=== PATIENT | female | born 1955 | race Caucasian/White ===

== ENCOUNTER 2023-01-04 09:36 | Emergency (ER) | payer OTHER, SELFPAY ==
[2023-01-04] VITALS (8 sets, daily range): BP systolic 115–141; BP diastolic 56–81; PULSE 79–88; RESP 14–16; TEMP 36.9; O2SAT 94–98
--- NOTE | 2023-01-04 10:11 | PC.NURSE ---
Verbal order received from Dr. Lugo for irrigation of indwelling catheter. 120cc of sterile water used to irrigate, 325 mL urine return, catheter patently drainage.
[2023-01-04 10:37] LABS: Basophils Absolute Auto 0.1 K/mm3 (0.0-0.1); Basophils Percent Auto 0.7 % (0.2-1.2); Eosinophils Absolute Auto 0.3 K/mm3 (0-0.3); Eosinophils Percent Auto 1.7 % (0-4.4); Hematocrit 35.1 % (37.0-47.0); Immature Granulocyte Absolute 0.05 K/mm3 (0.00-0.031); Immature Granulocyte Percent A 0.3 % (0-0.5); Lymphocytes Percent Auto 16.5 % (18.3-44.2); Mean Corpuscular HGB Conc 31.3 g/dl (32-36); Mean Corpuscular Hemoglobin 29.8 pg (26-34); Mean Corpuscular Volume 95.1 fl (80-100); Mean Platelet Volume 8.7 fl (7.4-10.4); Monocytes Absolute Auto 1.2 K/mm3 (0.1-0.6); Monocytes Percent Auto 7.5 % (2.6-8.5); Neutrophils Absolute Auto 11.6 K/mm3 (1.3-6.7); Neutrophils Percent Auto 73.3 % (45.5-73.1); Platelet Count Result 665 k/mm3 (150-375); Red Blood Count 3.69 M/mm3 (4.2-5.4); Red Cell Distribution Width 14.4 % (11.5-14.5); White Blood Count 15.8 K/mm3 (4.5-10.0)
[2023-01-04 10:57] LABS: Anion Gap 3 mmol/L (8-16); Blood Urea Nitrogen 8 mg/dL (7-17); Calcium 9.3 mg/dL (8.4-10.2); Carbon Dioxide 27 mmol/L (22-30); Chloride 104 mmol/L (98-107); Estimated Glomerular Filt Rate > 60; Glucose 89 mg/dL (65-110); Potassium 4.3 mmol/L (3.4-5.0); Sodium 134 mmol/L (137-145)
[2023-01-04 11:35] LABS: Appearance Urine Cloudy (Clear); Bacteria Urine 2+ /hpf; Bilirubin Urine Negative (Negative); Blood Urine 2+ (Negative); Budding Yeast Urine Present /hpf; Color Urine Yellow (Yellow); Glucose Urine UA 2+ mg/dL (Negative); Ketones Urine Negative (Negative); Leukocyte Esterase Ur 3+ LEU/UL (Negative); Nitrate Urine Negative (Negative); Non Pathogenic Casts 0-2; Protein Urine Negative (Negative); Specific Grav Ur 1.007 (1.001-1.035); Squamous Epithelial Cell Urine None seen /hpf (Few); Urobilinogen Urine 0.2 mg/dL (<2.0); WBC Urine >100 /hpf; pH Urine 7.5 (5.0-9.0)
[2023-01-04 11:36] LABS: Add Urine Microscopic? YES
--- NOTE | 2023-01-04 12:56 | ED.GENADULT ---
HPI - General Adult General Chief complaint: Urogenital-Female Stated complaint: Catheter blocked Time Seen by Provider: 01/04/23 09:43 History of Present Illness HPI narrative: Patient is a 67-year-old female who presents to the ER with a Lazo that is not draining. She recently had a transurethral resection of the bladder for tumors last week at [facility]. During that procedure there was perforation and she drained urine into her peritoneal cavity. She then had to go back and have a Lazo catheter placed. She has had 2 more visits to ERs for clogged Lazo catheters. She was on Augmentin but switched to Keflex 2 days ago. No fevers or chills or sweats. No abdominal pain. When she called her physician's office she was told to come to the ER. Related Data Allergies Allergy/AdvReac Type Severity Reaction Status Date / Time No Known Allergies Allergy Verified 01/04/23 10:07 Review of Systems Review of Systems: All systems reviewed & are unremarkable except as noted in HPI and below Constitutional: Constitutional: Denies chills and Denies fever(s) Cardiovascular: Cardiovascular: Reports no additional cardiovascular complaints Respiratory: Respiratory: Reports no additional respiratory complaints Gastrointestinal: Gastrointestinal: Denies abdominal pain, Denies nausea and Denies vomiting Genitourinary: Genitourinary: Denies hematuria and Denies pelvic pain Comments: Poor Lazo drainage PMFSH Past Medical History Medical History (Updated 01/04/23 @ 18:05 by Theodore Lugo MD) Bladder cancer Surgical History Surgical History (Updated 01/04/23 @ 18:05 by Theodore Lugo MD) H/O transurethral resection of bladder tumor (TURBT) Exam Narrative: GENERAL: Well-appearing, well-nourished, and in no acute distress. HEAD: Normocephalic, atraumatic. ENT: Mucous membranes moist. CHEST: Clear to auscultation. No respiratory distress. HEART: Regular rate and rhythm. Normal peripheral pulses. ABDOMEN: Soft, nontender, nondistended. EXTREMITIES: Normal range of motion. No edema. SKIN: Warm, dry, no rash. NEURO: Alert and oriented x3. PSYCH: Normal mood and affect. Course Course Emergency Course: 1308: Discussed the case with Dr. Rodríguez with urology at [facility]. He would like the patient to discontinue her cephalexin and resume her Augmentin. Additionally he would like the patient be on Diflucan 150 mg daily for the next 3 days given the yeast in her urine. He feels a lot of the sediment rectal represents sludge from her bladder perforation and inflammation that went along with it. Additionally he would like us to teach the patient and her daughter how to manually irrigate the bladder catheter. Patient daughter informed of the treatment plan and verbalized understanding felt comfortable with discharge home. Vital Signs Vital signs: Vital Signs Temperature 98.4 F 01/04/23 09:45 Pulse Rate 86 01/04/23 09:45 Respiratory Rate 16 01/04/23 09:45 Blood Pressure 115/56 L 01/04/23 09:45 Pulse Oximetry 98 01/04/23 09:45 Temperature 98.4 F 01/04/23 09:45 Pulse Rate 88 01/04/23 13:00 Respiratory Rate 16 01/04/23 13:00 Blood Pressure 139/70 01/04/23 13:00 Pulse Oximetry 96 01/04/23 13:00 Medical Decision Making Vital Signs Vital Signs: Vital Signs Temperature 98.4 F 01/04/23 09:45 Pulse Rate 86 01/04/23 09:45 Respiratory Rate 16 01/04/23 09:45 Blood Pressure 115/56 L 01/04/23 09:45 Pulse Oximetry 98 01/04/23 09:45 Temperature 98.4 F 01/04/23 09:45 Pulse Rate 88 01/04/23 13:00 Respiratory Rate 16 01/04/23 13:00 Blood Pressure 139/70 01/04/23 13:00 Pulse Oximetry 96 01/04/23 13:00 Lab Data 01/04/23 10:33 01/04/23 10:33 Labs: Lab Results 01/04/23 01/04/23 Range/Units 10:33 10:57 WBC 15.8 H (4.5-10.0) K/mm3 RBC 3.69 L (4.2-5.4) M/mm3 Hgb 11
== END 2023-01-04 13:36 | disposition home or self-care (01) ==
PROVIDERS: Emergency Provider Emergency Medicine; PCP Nurse Practitioner Family
DX: T83.098A Other mechanical complication of other urinary catheter, initial encounter (principal); N39.0 Urinary tract infection, site not specified; C67.9 Malignant neoplasm of bladder, unspecified; Z90.6 Acquired absence of other parts of urinary tract; Y84.6 Urinary catheterization as the cause of abnormal reaction of the patient, or of later complication, without mention of misadventure at the time of the procedure
CPT/HCPCS: 36415; 51700; 51702; 80048; 81001; 85025; 87086; 99283

== ENCOUNTER 2023-01-04 19:41 | Emergency (ER) | payer OTHER, SELFPAY ==
[2023-01-04 19:43] VITALS: BP 117/62; PULSE 92; RESP 18; TEMP 36.6; O2SAT 96
--- NOTE | 2023-01-04 20:11 | ED.GENADULT ---
HPI - General Adult General Chief complaint: Urogenital-Female Stated complaint: clogged romero Time Seen by Provider: 01/04/23 19:44 History of Present Illness HPI narrative: 67-year-old female return to the ED for evaluation for a Romero catheter issue. Patient is a known bladder perforation has been having increased urinary sediment. Patient does have follow-up with [facility] urology. Patient was seen in the emergency department earlier today and was recently switched from Augmentin to Keflex. Earlier today patient was educated on how to irrigate the Romero catheter but at home she was unable to successfully irrigate the Romero. Romero catheter was once again exchanged and urinary bladder is now draining without issue. Related Data Allergies Allergy/AdvReac Type Severity Reaction Status Date / Time No Known Allergies Allergy Verified 01/04/23 10:07 Review of Systems Review of Systems: All systems reviewed & are unremarkable except as noted in HPI and below PMFSH Past Medical History Medical History (Updated 01/04/23 @ 20:13 by Brian Franklin MD) Bladder cancer Surgical History Surgical History (Updated 01/04/23 @ 18:05 by Theodore Lugo MD) H/O transurethral resection of bladder tumor (TURBT) Exam Narrative: APPEARANCE: Well appearing, no pain, no distress, well-nourished. HEAD: normocephalic, atraumatic. EYES: PERRLA/EOMI, conjunctivae clear. RESPIRATORY: Airway patent, respirations nonlabored. Clear to auscultation bilaterally, no rales, rhonchi, wheezing. CARDIOVASCULAR: Regular rate and rhythm without murmurs rubs or gallops. ABDOMINAL: Soft, nontender, nondistended, normal bowel sounds MUSCULOSKELETAL: Moves all extremities. Strength/ROM intact, No edema, No calf tenderness. NEURO: Alert. Cranial nerves II through XII intact. Grossly intact SKIN: Warm, dry. Normal Color Course Course Emergency Course: Romero catheter was exchanged and is successfully draining her urinary bladder. Patient was once again encouraged of close follow-up with urology. Vital Signs Vital signs: Vital Signs Temperature 97.8 F 01/04/23 19:43 Pulse Rate 92 01/04/23 19:43 Respiratory Rate 18 01/04/23 19:43 Blood Pressure 117/62 01/04/23 19:43 Pulse Oximetry 96 01/04/23 19:43 Oxygen Delivery Room Air 01/04/23 19:43 Temperature 97.8 F 01/04/23 19:43 Pulse Rate 92 01/04/23 19:43 Respiratory Rate 18 01/04/23 19:43 Blood Pressure 117/62 01/04/23 19:43 Pulse Oximetry 96 01/04/23 19:43 Oxygen Delivery Room Air 01/04/23 19:43 Medical Decision Making Vital Signs Vital Signs: Vital Signs Temperature 97.8 F 01/04/23 19:43 Pulse Rate 92 01/04/23 19:43 Respiratory Rate 18 01/04/23 19:43 Blood Pressure 117/62 01/04/23 19:43 Pulse Oximetry 96 01/04/23 19:43 Oxygen Delivery Room Air 01/04/23 19:43 Temperature 97.8 F 01/04/23 19:43 Pulse Rate 92 01/04/23 19:43 Respiratory Rate 18 01/04/23 19:43 Blood Pressure 117/62 01/04/23 19:43 Pulse Oximetry 96 01/04/23 19:43 Oxygen Delivery Room Air 01/04/23 19:43 Lab Data Labs: Urine Characteristics Sediment Discharge Plan Discharge Clinical Impression: Complication of Romero catheter Patient Disposition: Home, Self-Care Condition: Stable Instructions: Antibiotic Form, Romero Catheter Placement and Care (ED) Additional Instructions: Continue to have close follow-up with urology. If you have any worsening symptoms please call or return to the emergency department. Irrigate Romero catheter as instructed Prescriptions: No Action fluconazole [Diflucan] 150 mg tablet 150 mg PO DAILY Qty: 3 0RF Follow-up/Referrals: Tenzin,Vanna Ansari APRN [Primary Care Provider] -
== END 2023-01-04 20:40 | disposition home or self-care (01) ==
LOC: ANHED 20:19
PROVIDERS: Emergency Provider Emergency Medicine; PCP Nurse Practitioner Family
DX: T83.098A Other mechanical complication of other urinary catheter, initial encounter (principal); C67.9 Malignant neoplasm of bladder, unspecified; Z90.6 Acquired absence of other parts of urinary tract; Y84.6 Urinary catheterization as the cause of abnormal reaction of the patient, or of later complication, without mention of misadventure at the time of the procedure
CPT/HCPCS: 51702; 99283

== ENCOUNTER 2023-02-04 18:04 | Emergency (ER) | payer OTHER, SELFPAY ==
[2023-02-04] VITALS (36 sets, daily range): BP systolic 91–106; BP diastolic 44–52; PULSE 100–115; RESP 17–30; TEMP 37.1; O2SAT 88–100
--- NOTE | ~2023-02-04 | CT_ITS ---
EXAMINATION: CT abdomen pelvis w con DATE: 02/04/2023 19:28 INDICATION: Cystectomy. Left lower quadrant pain. TECHNIQUE: Computed tomography (CT) of the abdomen and pelvis was performed with 100 mL Omnipaque-350 intravenous contrast. Automated exposure control and iterative reconstruction technique were employe d. The dose-length product was 249.13 mGy-cm. COMPARISON: CT dated 11/03/2016 FINDINGS: Tiny right pleural effusion. Mild atelectasis at the dependent lung bases. Heart size is normal. Athe rosclerotic coronary artery calcific lesion. No pericardial effusion. Small sliding-type hiatal herni a. Liver, gallbladder, pancreas and bilateral adrenal glands are normal. There is a geographic relati vely low attenuation region of the spleen with lobular margins which chest sequela of prior infarct. 2.6 cm gas-filled duodenal diverticulum positioned posterior to the head of the pancreas. Postoperati ve changes prior cystectomy with surgical drain extending into the deep left hemipelvis. There is a s mall to moderate amount of intraperitoneal gas and fluid in the explanation bilateral lower quadrants of the abdomen and in the pelvis. The fluid does not appear discretely loculated but does demonstrat e peripheral thin enhancing rim. Moderate bilateral hydronephrosis with bilateral internal ureteral s tents with proximal loops in the bilateral renal pelvises and extending distally into a right lower q uadrant ileal conduit. The uterus is not identified and has likely been surgically resected. There a re gas and fluid-filled loops of small bowel without june dilation most consistent with a postoperat hoang ileus. There are few scattered colonic diverticula without adjacent inflammatory stranding to sug gest diverticulitis. No pathologically enlarged abdominal or pelvic lymphadenopathy. Mild lumbar levo curvature with mild spondylosis. Dependent body wall edema at the abdomen and pelvis. IMPRESSION: 1. Postoperative change of likely recent cystectomy with small to moderate amount of gas and fluid sc attered throughout the abdomen and pelvis. Although not frankly loculated into discrete abscesses, th ere is a peripheral rim of enhancement which elevates concern for infection. 2. Moderate hydronephrosis with bilateral intraureteral stents extending into a right lower quadrant ileal conduit. 3. Tiny right pleural effusion. 4. Geographic region of decreased attenuation in the spleen suggesting sequela chronic infarct or tra steph. 5. Small sliding-type hiatal hernia. 6. Gas and fluid-filled but not frankly dilated loops of small bowel which could represent an ileus. Reviewed, dictated and finalized at location A. IMPRESSION: 1. Postoperative change of likely recent cystectomy with small to moderate amou nt of gas and fluid scattered throughout the abdomen and pelvis. Although not f rankly loculated into discrete abscesses, there is a peripheral rim of enhancem ent which elevates concern for infection. 2. Moderate hydronephrosis with bilateral intraureteral stents extending into a right lower quadrant ileal conduit. 3. Tiny right pleural effusion. 4. Geographic region of decreased attenuation in the spleen suggesting sequela chronic infarct or trauma. 5. Small sliding-type hiatal hernia. 6. Gas and fluid-filled but not frankly dilated loops of small bowel which coul d represent an ileus.
--- NOTE | 2023-02-04 18:33 | ED.GENADULT ---
HPI - General Adult General Chief complaint: Unspecified <NERIS Kiran Last Filed: 02/05/23 00:05> Stated complaint: cystectomy site possible infection <NERIS Kiran Last Filed: 02/05/23 00:05> Time Seen by Provider: 02/04/23 18:31 <NERIS Kiran Last Filed: 02/05/23 00:05> Source: patient <NERIS Kiran Last Filed: 02/05/23 00:05> Mode of arrival: ambulatory <NERIS Kiran Last Filed: 02/05/23 00:05> Limitations: no limitations <NERIS Kiran Last Filed: 02/05/23 00:05> History of Present Illness HPI narrative: Patient is a 67 y/o female who presents to the ED with c/o abdominal infection. Patient reports she underwent cystectomy for bladder cancer on 01/[address] Rodríguez at [facility]. She states over the last couple of days she has been feeling unwell, weak, fatigued. She has had worsening pain in her left lower abdomen. She has noticed changes to the fluid in her JORGE drain, stating the drainage has become more dark, murky, foul-smelling. She has also noted purulent drainage and redness around the JORGE drain site on her left lower abdomen. She has had some blood from her urostomy/ileal conduit. She has not tried contacting her surgeon. She has follow-up scheduled for the . She denies any nausea, vomiting, fevers. She has been slightly constipated as well which she attributed to her pain medication postsurgery. She has been taking stool softeners. <NERIS Kiran Last Filed: 02/05/23 00:05> Related Data Allergies/adverse reactions: Allergies Allergy/AdvReac Type Severity Reaction Status Date / Time No Known Allergies Allergy Verified 02/04/23 18:42 <NERIS Kiran Last Filed: 02/05/23 00:05> Review of Systems Review of Systems: CONSTITUTIONAL: Denies fever, chills, or sweats. CARDIOVASCULAR: Denies chest pain. RESPIRATORY: Denies dyspnea. GASTROINTESTINAL: See HPI. GENITOURINARY: See HPI. SKIN: See HPI. MUSCULOSKELETAL: Denies back pain, joint pain, or myalgia. NEUROLOGIC: Denies headache, numbness, or weakness. <Demetria Toledo PA-C - Last Filed: 02/05/23 00:05> All systems reviewed & are unremarkable except as noted in HPI and below <Demetria Toledo PA-C - Last Filed: 02/05/23 00:05> FORMERLY [facility] Past Medical History Medical History: Medical History Bladder cancer <Demetria Toledo PA-C - Last Filed: 02/05/23 00:05> Surgical History Surgical History: Surgical History H/O transurethral resection of bladder tumor (TURBT) <Demetria Toledo PA-C - Last Filed: 02/05/23 00:05> Family History Family History: Family History Mother Diabetes mellitus Father Cerebrovascular accident, Onset Age: 78 Sibling Family history of malignant neoplasm, Onset Age: 71 <Demetria Toledo PA-C - Last Filed: 02/05/23 00:05> Social History Social History: Social History Smoking status: Current every day smoker Alcohol intake: never <Demetria Toledo PA-C - Last Filed: 02/05/23 00:05> Exam Narrative: GENERAL: Chronically ill-appearing, thin, non-toxic, in no acute distress. HEAD: Normocephalic, atraumatic. ENT: Edentulous. NECK: Supple. No adenopathy, no masses. RESPIRATORY: Airway patent, respirations borderline tachypneic but nonlabored. Clear to auscultation bilaterally, no rales, rhonchi, wheezing. CARDIOVASCULAR: Borderline tachycardic with regular rhythm without murmurs, rubs, or gallops. Peripheral pulses 2+ and equal bilaterally. ABDOMINAL: Soft, focal tenderness to palpation in left lower and mid abdomen. Slightly hypoactive BS. Ileal c
[2023-02-04 18:52] LABS: Basophils Absolute Auto 0.1 K/mm3 (0.0-0.1); Basophils Percent Auto 0.5 % (0.2-1.2); Eosinophils Percent Auto 0.2 % (0-4.4); Hematocrit 27.8 % (37.0-47.0); Hemoglobin 8.8 g/dL (12.0-15.0); Immature Granulocyte Absolute 0.14 K/mm3 (0.00-0.031); Immature Granulocyte Percent A 0.7 % (0-0.5); Lymphocytes Absolute Auto 1.54 K/mm3 (0.9-3.2); Lymphocytes Percent Auto 7.7 % (18.3-44.2); Mean Corpuscular HGB Conc 31.7 g/dl (32-36); Mean Corpuscular Hemoglobin 29.1 pg (26-34); Mean Corpuscular Volume 92.1 fl (80-100); Monocytes Absolute Auto 1.2 K/mm3 (0.1-0.6); Monocytes Percent Auto 5.8 % (2.6-8.5); Neutrophils Percent Auto 85.1 % (45.5-73.1); Platelet Count Result 701 k/mm3 (150-375); Red Blood Count 3.02 M/mm3 (4.2-5.4); Red Cell Distribution Width 16.1 % (11.5-14.5)
[2023-02-04 19:05] LABS: Alanine Aminotransferase 17 U/L (6-35); Albumin Level 3.1 g/dL (3.5-5.1); Alkaline Phosphatase 152 U/L (38-126); Anion Gap 9 mmol/L (8-16); Aspartate Amino Transferase 32 U/L (14-36); Bilirubin,Total 0.8 mg/dL (0.2-1.3); Blood Urea Nitrogen 19 mg/dL (7-17); Calcium 8.4 mg/dL (8.4-10.2); Carbon Dioxide 22 mmol/L (22-30); Chloride 105 mmol/L (98-107); Estimated CRCL calculation 56 ml/min; Estimated Glomerular Filt Rate > 60; Glucose 141 mg/dL (65-110); Lactic Acid Reflex 3.3 mmol/L (0.7-2.0); Potassium 4.4 mmol/L (3.4-5.0); Sodium 136 mmol/L (137-145)
[2023-02-04 19:21] LABS: Appearance Urine Turbid (Clear); Bacteria Urine 4+ /hpf; Bilirubin Urine Negative (Negative); Blood Urine 3+ (Negative); Color Urine Dark Yellow (Yellow); Glucose Urine UA Negative (Negative); Ketones Urine Negative (Negative); Leukocyte Esterase Ur 3+ LEU/UL (Negative); Need Manual Microscopic Reviewed; Nitrate Urine Negative (Negative); Protein Urine 1+ mg/dL (Negative); RBC Urine 51-100 /hpf (0-2); Specific Grav Ur 1.017 (1.001-1.035); Squamous Epithelial Cell Urine None seen /hpf (Few); WBC Urine >100 /hpf
[2023-02-04 19:22] LABS: Add Urine Microscopic? YES
[2023-02-04] MEDS: SODIUM CHLORIDE 0.9% IV 1,000 ML 999 ML IV CONT ×3 (19:30→21:44)
[2023-02-04] MEDS: fentaNYL CITRATE INJ (*CRX) 100 MCG/2 ML VIAL 25 MCG IV PUSH (20:20)
[2023-02-04] MEDS: PIPERACILLN/TAZ 3.375GM/NS50ML 3.375 GM/50 ML BAG IVPB (20:22)
[2023-02-04] MEDS: VANCOMYCIN 1,250 MG/NS 250 ML 1,250 MG/250 ML BAG 166.67 MG IVPB (21:16)
[2023-02-04 21:50] LABS: Reflex Lactic Acid Yes or No Add Lactic
== END 2023-02-05 00:20 | disposition short-term general hospital (02) ==
PROVIDERS: Emergency Provider Physician Assistant; PCP Nurse Practitioner Family
DX: T81.40XA Infection following a procedure, unspecified, initial encounter (principal); T81.44XA Sepsis following a procedure, initial encounter; A41.9 Sepsis, unspecified organism; N39.0 Urinary tract infection, site not specified; Z90.6 Acquired absence of other parts of urinary tract; E87.20 Acidosis, unspecified; K56.7 Ileus, unspecified; N13.30 Unspecified hydronephrosis
CPT/HCPCS: 36415; 74177; 80053; 81001; 83605; 85025; 87040; 87077; 87086; 87186; 96365; 96366; 96367; 96375; 99285; J2543; J3010; J3370; J7030; Q9967

== ENCOUNTER 2023-03-27 11:10 | Emergency (ER) | payer OTHER, SELFPAY ==
--- NOTE | ~2023-03-27 | CT_ITS ---
EXAMINATION: CT abdomen pelvis w con INDICATION: Back and lower abdominal pain TECHNIQUE: Computed tomographic images of the abdomen and pelvis were obtained after the administrati on of 100 cc of Omnipaque 350 intravenous contrast. The dose-length product (DLP) was 173.18 mGy-cm. Automated exposure control and iterative reconstruction technique were employed. COMPARISON: 02/04/2023, 11/03/2016 FINDINGS: The heart size is normal. A chronic, stable 3 mm nodule of the left lower lobe is consisten t with old granulomatous disease. A geographic area of low-attenuation is again noted in the spleen. The liver, pancreas, and adrenal glands are normal. There is mild distention of the gallbladder which may be due to fasting state. There is mild atrophy of the right kidney. There is a 2.3 cm cyst of th e right kidney upper pole. There is a mildly dilated calyx of the right kidney upper pole as well. Th ere are changes of cystectomy with ileal conduit formation. Bilateral internal ureteral stents have b een removed there is a short segment of focal dilation in the proximal right ureter. There has been i nterval decrease in size of the previously described pelvic fluid collection. A percutaneous drainage catheter of the left lower quadrant has been removed. There is mild lumbar spondylosis. No free intr aperitoneal gas is identified. IMPRESSION: 1. Interval resolution of the previously described pelvic fluid collection. 2. Bilateral internal ureteral stent removal with short segment of focal dilatation of the proximal r ight ureter. 3. Unchanged geographic area of low attenuation in the spleen, consistent with infarct versus trauma. Reviewed, dictated and finalized at location B. MASTER IMPRESSION: 1. Interval resolution of the previously described pelvic fluid collection. 2. Bilateral internal ureteral stent removal with short segment of focal dilata tion of the proximal right ureter. 3. Unchanged geographic area of low attenuation in the spleen, consistent with infarct versus trauma.
[2023-03-27 11:17] VITALS: BP 116/65; PULSE 103; RESP 15; TEMP 37.1; O2SAT 100
[2023-03-27 11:47] LABS: Basophils Percent Auto 0.3 % (0.2-1.2); Eosinophils Percent Auto 0.1 % (0-4.4); Hematocrit 40.6 % (37.0-47.0); Hemoglobin 12.6 g/dL (12.0-15.0); Immature Granulocyte Absolute 0.04 K/mm3 (0.00-0.031); Immature Granulocyte Percent A 0.3 % (0-0.5); Lymphocytes Absolute Auto 1.95 K/mm3 (0.9-3.2); Lymphocytes Percent Auto 14.3 % (18.3-44.2); Mean Corpuscular Hemoglobin 29.8 pg (26-34); Mean Platelet Volume 9.5 fl (7.4-10.4); Monocytes Absolute Auto 1.2 K/mm3 (0.1-0.6); Monocytes Percent Auto 8.7 % (2.6-8.5); Neutrophils Absolute Auto 10.4 K/mm3 (1.3-6.7); Neutrophils Percent Auto 76.3 % (45.5-73.1); Platelet Count Result 491 k/mm3 (150-375); Red Blood Count 4.23 M/mm3 (4.2-5.4); Red Cell Distribution Width 18.5 % (11.5-14.5); White Blood Count 13.6 K/mm3 (4.5-10.0)
[2023-03-27 12:00] LABS: Alanine Aminotransferase 21 U/L (6-35); Albumin Level 3.7 g/dL (3.5-5.1); Alkaline Phosphatase 129 U/L (38-126); Anion Gap 9 mmol/L (8-16); Aspartate Amino Transferase 28 U/L (14-36); Bilirubin,Total 0.6 mg/dL (0.2-1.3); Blood Urea Nitrogen 20 mg/dL (7-17); Calcium 8.9 mg/dL (8.4-10.2); Carbon Dioxide 24 mmol/L (22-30); Chloride 101 mmol/L (98-107); Estimated CRCL calculation 49 ml/min; Estimated Glomerular Filt Rate > 60; Glucose 118 mg/dL (65-110); Lipase 18 U/L (23-300); Potassium 3.7 mmol/L (3.4-5.0); Sodium 134 mmol/L (137-145)
[2023-03-27 12:01] LABS: Appearance Urine Cloudy (Clear); Bacteria Urine 4+ /hpf; Bilirubin Urine Negative (Negative); Blood Urine 1+ (Negative); Color Urine Yellow (Yellow); Glucose Urine UA 3+ mg/dL (Negative); Ketones Urine Negative (Negative); Leukocyte Esterase Ur 2+ LEU/UL (Negative); Need Manual Microscopic Reviewed; Nitrate Urine Negative (Negative); Protein Urine 1+ mg/dL (Negative); Specific Grav Ur 1.017 (1.001-1.035); Squamous Epithelial Cell Urine Occasional /hpf (Few); Urobilinogen Urine 0.2 mg/dL (<2.0); WBC Urine 51-100 /hpf; White Blood Cell Casts Urine Present /lpf
[2023-03-27 12:12] LABS: Add Urine Microscopic? YES
--- NOTE | 2023-03-27 12:52 | ED.GENADULT ---
HPI - General Adult General Chief complaint: Abdominal Pain <Irene Steiner September, Last Filed: 03/27/23 13:00> Stated complaint: abdominal pain and fever <Irene Steiner September, Last Filed: 03/27/23 13:00> Time Seen by Provider: 03/27/23 13:37 <Irene Steiner September, Last Filed: 03/27/23 13:00> History of Present Illness HPI narrative: Dea Perez is a 67 y/o female who presents with reports of running a fever/ chills for about 2-3 days, pertinent hx of sepsis with recent bowel leak and abdominal surgery 02/16 complains of pain to her left flank and her left lower abdomen / bladder removed 02/04 Denies nausea/vomiting Last BM yesterday <Irene Steiner September, Last Filed: 03/27/23 13:00> Related Data Allergies/adverse reactions: Allergies Allergy/AdvReac Type Severity Reaction Status Date / Time No Known Allergies Allergy Verified 03/27/23 13:35 <Irene Steiner September, Last Filed: 03/27/23 13:00> FORMERLY [facility] Past Medical History Medical History: Medical History Bladder cancer <Irene Steiner September, Last Filed: 03/27/23 13:00> Surgical History Surgical History: Surgical History H/O transurethral resection of bladder tumor (TURBT) <Irene Steiner September, Last Filed: 03/27/23 13:00> Family History Family History: Family History Mother Diabetes mellitus Father Cerebrovascular accident, Onset Age: 78 Sibling Family history of malignant neoplasm, Onset Age: 71 <Irene Steiner September, Last Filed: 03/27/23 13:00> Social History Social History: Social History Smoking status: Current every day smoker Alcohol intake: never <Irene Emery [employer]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 HEAD: Normocephalic, atraumatic. ENT: Mucous membranes moist. CHEST: Clear to auscultation. No respiratory distress. HEART: Regular rate and rhythm. Normal peripheral pulses. ABDOMEN: Soft, nontender, nondistended. EXTREMITIES: Normal range of motion. No edema. SKIN: Warm, dry, no rash. NEURO: Alert and oriented x3. PSYCH: Normal mood and affect. <Theodore Lugo MD - Last Filed: 03/27/23 19:32> Course Course Emergency Course: Urine with infectious appearance however it is likely due to ileal conduit placement. Given lack of other evidence of infectious process within the abdomen patient will be treated with antibiotics should the urinary tract be developing an early Pyelo. Discussed treatment plan with patient and she verbalized understanding. <Theodore Lugo MD - Last Filed: 03/27/23 19:32> Vital Signs Vital signs: Vital Signs Temperature 98.7 F 03/27/23 11:17 Pulse Rate 103 H 03/27/23 11:17 Respiratory Rate 15 03/27/23 11:17 Blood Pressure 116/65 03/27/23 11:17 Pulse Oximetry 100 03/27/23 11:17 Oxygen Delivery Room Air 03/27/23 11:17 Temperature 98.7 F 03/27/23 11:17 Pulse Rate 96 03/27/23 14:40 Respiratory Rate 26 H 03/27/23 14:40 Blood Pressure 115/58 L 03/27/23 14:40 Pulse Oximetry 98 03/27/23 14:40 Oxygen Delivery Room Air 03/27/23 11:17 <Irene Emery ROTARY CUTTER OPERATOR - Last Filed: 03/27/23 13:00> Vital Signs Temperature 98.7 F 03/27/23 11:17 Pulse Rate 103 H 03/27/23 11:17 Respiratory Rate 15 03/27/23 11:17 Blood Pressure 116/65 03/27/23 11:17 Pulse Oximetry 100 03/27/23 11:17 Oxygen Delivery Room Air 03/27/23 11:17 Temperature 98.7 F 03/27/23 11:17 Pulse Rate 96 03/27/23 14:40 Respiratory Rate 26 H 03/27/23 14:40 Blood Pressure 115/58 L 03/27/23 14:40 Pulse Oximetry 98 03/27/23 14:40 Oxygen Delivery Room Air 03/27/23 11:17 <Theodore Ramirez Olvin
[2023-03-27 13:38] VITALS: BP 116/66; PULSE 90; RESP 24; O2SAT 100
[2023-03-27 14:00] VITALS: BP 103/60; PULSE 91; RESP 22; O2SAT 96
[2023-03-27 14:40] VITALS: BP 115/58; PULSE 96; RESP 26; O2SAT 98
== END 2023-03-27 14:48 | disposition home or self-care (01) ==
PROVIDERS: Emergency Provider Emergency Medicine; PCP Nurse Practitioner Family
DX: N39.0 Urinary tract infection, site not specified (principal); F17.200 Nicotine dependence, unspecified, uncomplicated; Z85.51 Personal history of malignant neoplasm of bladder
CPT/HCPCS: 36415; 74177; 80053; 81001; 83690; 85025; 87077; 87086; 87186; 99284; Q9967

== ENCOUNTER 2023-04-29 13:17 | Emergency (ER) | payer OTHER, SELFPAY ==
[2023-04-29] VITALS (11 sets, daily range): BP systolic 101–112; BP diastolic 47–60; PULSE 80–93; RESP 12–18; TEMP 36.2; O2SAT 97–100
--- NOTE | ~2023-04-29 | XR_ITS ---
EXAMINATION: XR chest 2V Exam Date/Time: 04/29/2023 16:35 SOLDERING MACHINE OPERATOR HISTORY: leukocytosis, hypotension Comparison: 11/03/2016. RESULT: Lines, tubes, and devices: None. Lungs and pleura: Biapical pleural scarring. Senescent change. Otherwise clear. Cardiomediastinal silhouette: Stable. Other: No acute osseous or upper abdominal finding. IMPRESSION: No acute cardiopulmonary process. Reviewed, dictated and finalized at location K. ERING MACHINE OPERATOR
--- NOTE | ~2023-04-29 | CT_ITS ---
EXAMINATION: CTA brain carotid DATE: 04/29/2023 16:43 INDICATION: R eye vision loss 3-4 days ago TECHNIQUE: Computed tomographic angiography (CTA) of the head was performed without and with 100 mL O mnipaque-350 intravenous contrast. CTA of the neck was performed with intravenous contrast. Automated exposure control and iterative reconstruction technique were employed. The dose-length product was 1 466.02 mGy-cm. Maximum intensity projection and volume rendered 3D-reconstructions were created by roney meyer technologist on a separate workstation. COMPARISON: None. FINDINGS: CT BRAIN: No acute large vessel infarct, intracranial hemorrhage, mass, or hydrocephalus. CTA HEAD: No large vessel occlusion, aneurysm, high flow vascular malformation, nidus or extravasation. Moderat e calcification in the bilateral cavernous carotids without significant stenosis. Patent cerebral vei ns. Symmetric parenchymal enhancement. CTA NECK: Aortic arch and proximal great vessels: Atherosclerotic calcifications at the visualized aortic arch and proximal great vessels. Right common carotid, carotid bifurcation, and internal carotid artery: Calcified plaque at the bifur cation and proximal internal carotid artery.There is 40% stenosis of the proximal right internal gillespie tid artery relative to normal distal artery lumen diameter (NASCET criteria). Left common carotid, carotid bifurcation, and internal carotid artery: Calcified plaque at the bifurc ation.There is 0% stenosis of the proximal left internal carotid artery relative to normal distal art bharat lumen diameter (NASCET criteria). Vertebral arteries: Severe stenosis at the origin of the left vertebral artery. Right vertebral arter y is dominant, Other findings: 1.7 cm mixed solid and cystic right thyroid nodule. Biapical pleural scarring. IMPRESSION: No acute intracranial process. No large vessel occlusion. Severe short segment stenosis at the origin of the left vertebral artery. 40% stenosis of the proximal right internal carotid artery. 1.7 cm mixed solid and cystic right thyroid nodule, recommend nonemergent outpatient thyroid ultrasou nd for further characterization. Reviewed, dictated and finalized at location K. EATION INSTRUCTOR IMPRESSION: No acute intracranial process. No large vessel occlusion. Severe short segment stenosis at the origin of the left vertebral artery. 40% stenosis of the proximal right internal carotid artery. 1.7 cm mixed solid and cystic right thyroid nodule, recommend nonemergent outpa tient thyroid ultrasound for further characterization.
[2023-04-29 16:00] LABS: Basophils Absolute Auto 0.1 K/mm3 (0.0-0.1); Basophils Percent Auto 0.4 % (0.2-1.2); Eosinophils Absolute Auto 0.2 K/mm3 (0-0.3); Eosinophils Percent Auto 1.1 % (0-4.4); Hematocrit 39.8 % (37.0-47.0); Hemoglobin 12.4 g/dL (12.0-15.0); Immature Granulocyte Absolute 0.06 K/mm3 (0.00-0.031); Immature Granulocyte Percent A 0.4 % (0-0.5); Lymphocytes Absolute Auto 4.51 K/mm3 (0.9-3.2); Lymphocytes Percent Auto 27.7 % (18.3-44.2); Mean Corpuscular HGB Conc 31.2 g/dl (32-36); Mean Corpuscular Hemoglobin 29.5 pg (26-34); Mean Corpuscular Volume 94.8 fl (80-100); Mean Platelet Volume 8.7 fl (7.4-10.4); Monocytes Percent Auto 6.2 % (2.6-8.5); Neutrophils Absolute Auto 10.5 K/mm3 (1.3-6.7); Neutrophils Percent Auto 64.2 % (45.5-73.1); Platelet Count Result 584 k/mm3 (150-375); Red Cell Distribution Width 17.3 % (11.5-14.5); White Blood Count 16.3 K/mm3 (4.5-10.0)
[2023-04-29 16:12] LABS: Anion Gap 7 mmol/L (8-16); Blood Urea Nitrogen 15 mg/dL (7-17); Calcium 9.1 mg/dL (8.4-10.2); Carbon Dioxide 18 mmol/L (22-30); Chloride 113 mmol/L (98-107); Estimated CRCL calculation 51 ml/min; Estimated Glomerular Filt Rate > 60; Glucose 84 mg/dL (65-110); Potassium 4.6 mmol/L (3.4-5.0); Sodium 138 mmol/L (137-145)
[2023-04-29 16:17] LABS: CRP 2.6 mg/dL (<1.0)
[2023-04-29 16:32] LABS: Erythrocyte Sedimentation Rate 23 mm/hr (0-20)
--- NOTE | 2023-04-29 16:41 | ED.RECABL ---
HPI - Recheck/Abnormal Lab/Rx General Chief Complaint: Recheck/Abnormal Lab/Rx Stated Complaint: sent from eye doctor Time Seen by Provider: 04/29/23 14:58 Source: patient Mode of arrival: ambulatory Limitations: no limitations History of Present Illness HPI narrative: Patient is a 67-year-old female who presents to the ED with report of vision changes. Patient reports she developed vision loss in her right eye in 3-4 days ago. She states it was as though her vision went black but there was a thin horizontal line of light. She states these changes lasted for approximately 5 minutes before resolving on their own. There was no pain associated. Patient contacted her primary care doctor and was referred to an sizer hand today. She states her eye doctor was concerned for ischemia and sent her here for further evaluation. Patient has not had any further vision changes since that time. Denies blurry vision, double vision, vision loss, eye pain at this time. Denies eye redness, drainage. Denies headache, dizziness, lightheadedness, focal weakness or numbness. Patient does not wear glasses or contacts. Related Data Allergies Allergy/AdvReac Type Severity Reaction Status Date / Time No Known Allergies Allergy Verified 04/29/23 13:18 Review of Systems Review of Systems: CONSTITUTIONAL: Denies fever, chills, or sweats. ENT: See HPI. CARDIOVASCULAR: Denies chest pain, palpitations, or edema. RESPIRATORY: Denies cough or dyspnea. GASTROINTESTINAL: Denies abdominal pain, nausea, vomiting. MUSCULOSKELETAL: Denies back pain, joint pain, or myalgia. NEUROLOGIC: See HPI. All systems reviewed & are unremarkable except as noted in HPI and below PMFSH Past Medical History Medical History Bladder cancer Surgical History Surgical History H/O transurethral resection of bladder tumor (TURBT) Family History Family History Mother Diabetes mellitus Father Cerebrovascular accident, Onset Age: 78 Sibling Family history of malignant neoplasm, Onset Age: 71 Social History Social History Smoking status: Current every day smoker Alcohol intake: never Exam Narrative: GENERAL: Elderly, thin, non-toxic, in no acute distress. HEAD: Normocephalic, atraumatic. EYES: PERRL/EOMI, conjunctivae clear bilaterally. No nystagmus. No pain with eye movements. Clear visual sanchez. Funduscopic exam without obvious large abnormalities. No obvious fishman red spot. No appreciable AV nicking. NECK: Supple. No adenopathy, no masses. RESPIRATORY: Airway patent, respirations nonlabored. Clear to auscultation bilaterally, no rales, rhonchi, wheezing. CARDIOVASCULAR: Regular rate and rhythm without murmurs, rubs, or gallops. Radial pulses 2+ and equal bilaterally. ABDOMINAL: Soft, nontender, nondistended, no hepatosplenomegaly. Normoactive BS. MUSCULOSKELETAL: Moves all extremities. Strength/ROM intact without gross deformities. SKIN: Warm, dry, normal color. No rashes. NEURO: A&O X3. Speech clear. Follows commands. CN II-XII intact. Sensation grossly intact. Steady gait. No ataxic movements. Strength 5/5 in upper and lower extremities bilaterally. [id number] and [id number] testing intact bilaterally. No pronator drift. PSYCHIATRIC: Appropriate mood and affect. Normal interaction. Course Vital Signs Vital signs: Vital Signs Temperature 97.2 F L 04/29/23 13:22 Pulse Rate 93 04/29/23 13:22 Respiratory Rate 16 04/29/23 13:22 Blood Pressure 112/51 L 04/29/23 13:22 Pulse Oximetry 100 04/29/23 13:22 Oxygen Delivery Room Air 04/29/23 13:22 Temperature 97.2 F L 04/29/23 13:22 Pulse Rate 80 04/29/23 19:16 Respiratory Rate 12 04/29/23 19:16 Blood Press
[2023-04-29] MEDS: SODIUM CHLORIDE 0.9% IV 1,000 ML 999 ML IV CONT (16:55)
[2023-04-29 17:29] LABS: Appearance Urine Cloudy (Clear); Bacteria Urine 4+ /hpf; Bilirubin Urine Negative (Negative); Blood Urine Trace (Negative); Color Urine Yellow (Yellow); Glucose Urine UA 1+ mg/dL (Negative); Ketones Urine Negative (Negative); Leukocyte Esterase Ur 3+ LEU/UL (Negative); Need Manual Microscopic Reviewed; Nitrate Urine Positive (Negative); Protein Urine Negative (Negative); RBC Urine 0-2 /hpf (0-2); Specific Grav Ur 1.022 (1.001-1.035); Squamous Epithelial Cell Urine Occasional /hpf (Few); Urobilinogen Urine 0.2 mg/dL (<2.0); WBC Urine 51-100 /hpf; pH Urine 6.5 (5.0-9.0)
[2023-04-29 17:30] LABS: Add Urine Microscopic? YES
[2023-04-29] MEDS: ASPIRIN 81 MG CHEWABLE TABLET 324 MG PO (18:57)
== END 2023-04-29 19:40 | disposition home or self-care (01) ==
PROVIDERS: Emergency Provider Physician Assistant; PCP Nurse Practitioner Family
DX: H54.61 Unqualified visual loss, right eye, normal vision left eye (principal); N39.0 Urinary tract infection, site not specified; I65.02 Occlusion and stenosis of left vertebral artery; I65.29 Occlusion and stenosis of unspecified carotid artery; I65.21 Occlusion and stenosis of right carotid artery; F17.200 Nicotine dependence, unspecified, uncomplicated; Z85.51 Personal history of malignant neoplasm of bladder
CPT/HCPCS: 36415; 70496; 70498; 71046; 80048; 81001; 85025; 85652; 86140; 87077; 87086; 87186; 96361; 96365; 99284; A9270; J0696; J7030; Q9967

== ENCOUNTER 2023-11-15 12:04 | Outpatient (CLI) | payer MEDICARE, MEDICAID, SELFPAY ==
[2023-11-15 12:25] LABS: Basophils Absolute Auto 0.1 K/mm3 (0.0-0.1); Basophils Percent Auto 0.8 % (0.2-1.2); Eosinophils Absolute Auto 0.3 K/mm3 (0-0.3); Eosinophils Percent Auto 2.6 % (0-4.4); Hematocrit 43.3 % (37.0-47.0); Hemoglobin 13.7 g/dL (12.0-15.0); Immature Granulocyte Absolute 0.04 K/mm3 (0.00-0.031); Immature Granulocyte Percent A 0.4 % (0-0.5); Lymphocytes Absolute Auto 4.18 K/mm3 (0.9-3.2); Lymphocytes Percent Auto 41.2 % (18.3-44.2); Mean Corpuscular HGB Conc 31.6 g/dl (32-36); Mean Corpuscular Hemoglobin 30.9 pg (26-34); Mean Corpuscular Volume 97.5 fl (80-100); Mean Platelet Volume 9.1 fl (7.4-10.4); Monocytes Absolute Auto 0.7 K/mm3 (0.1-0.6); Monocytes Percent Auto 6.7 % (2.6-8.5); Neutrophils Absolute Auto 4.9 K/mm3 (1.3-6.7); Neutrophils Percent Auto 48.3 % (45.5-73.1); Platelet Count Result 408 k/mm3 (150-375); Red Blood Count 4.44 M/mm3 (4.2-5.4); Red Cell Distribution Width 14.8 % (11.5-14.5); White Blood Count 10.2 K/mm3 (4.5-10.0)
[2023-11-15 13:21] LABS: Alanine Aminotransferase 24 U/L (6-35); Albumin Level 4.7 g/dL (3.5-5.1); Alkaline Phosphatase 82 U/L (38-126); Anion Gap 7 mmol/L (4-12); Aspartate Amino Transferase 25 U/L (14-36); Bilirubin,Total 0.5 mg/dL (0.2-1.3); Blood Urea Nitrogen 16 mg/dL (7-17); CRP < 0.5 mg/dL (<1.0); Calcium 9.8 mg/dL (8.4-10.2); Carbon Dioxide 22 mmol/L (22-30); Chloride 112 mmol/L (98-107); Estimated Glomerular Filt Rate > 60; Glucose 97 mg/dL (65-110); Potassium 5.1 mmol/L (3.4-5.0); Sodium 141 mmol/L (137-145)
[2023-11-15 13:35] LABS: Erythrocyte Sedimentation Rate 11 mm/hr (0-20)
[2023-11-15 15:08] LABS: Iron 83 ug/dL (37-170)
[2023-11-15 15:21] LABS: Percent Iron Saturation 25 % (20-50)
[2023-11-22 19:08] LABS: Block/Specimen ID NG; JAK2 V617F Mutation NOT DETECTED (NOT DETECTED); Specimen Source Blood
== END 2023-11-15 12:05 | disposition home or self-care (01) ==
LOC: ANHLAB 12:07
PROVIDERS: PCP Nurse Practitioner Family; Visit Provider Nurse Practitioner Family
DX: D75.839 Thrombocytosis, unspecified (principal); D50.9 Iron deficiency anemia, unspecified; D47.3 Essential (hemorrhagic) thrombocythemia
CPT/HCPCS: 36415; 80053; 81270; 82728; 83540; 83550; 85025; 85652; 86140

== ENCOUNTER 2023-12-20 08:55 | Outpatient (CLI) | payer MEDICARE, MEDICAID, SELFPAY ==
--- NOTE | ~2023-12-20 | US_ITS ---
EXAMINATION: US FNA w image guidance DATE: 12/20/2023 09:47 INDICATION: Thyroid nodule. TECHNIQUE: The procedure and its benefits and risks were discussed with the patient. Risks specifically discusse d included bleeding. The patient verbalized understanding of the risks and agreed to proceed. The nec k was prepped and draped in the usual sterile manner. 1% lidocaine was used for local anesthesia. 6 passes were made with a 25G needle into the lesion under ultrasound guidance. There were no immedia te complications. FINDINGS: Grayscale ultrasound images demonstrate needles advanced into a 2.1 cm nodule in posterior right thyr oid lobe for biopsy. IMPRESSION: 1. Ultrasound-guided fine needle aspiration of a right thyroid nodule. Reviewed, dictated and finalized at location A.
== END 2023-12-20 08:56 | disposition home or self-care (01) ==
LOC: ANHIMG 09:01
PROVIDERS: PCP Internal Medicine; Visit Provider Otolaryngology
DX: E04.1 Nontoxic single thyroid nodule (principal)
CPT/HCPCS: 10005; 88172; 88173; 88305

== ENCOUNTER 2024-08-17 10:18 | Outpatient (CLI) | payer MEDICARE, MEDICAID, SELFPAY ==
--- NOTE | ~2024-08-17 | CT_ITS ---
CT Scan of the Chest without Contrast: Clinical Indication: Lung cancer screening, nicotine dependence Technique: Contiguous sections were acquired throughout the chest without intravenous contrast. Dose reduction technique was used on this scan by utilizing automated exposure control and iterative recon struction technique. The dose-length product (DLP) was 56.31 mGy-cm. Findings: There is no evidence of any significant mediastinal, hilar or axillary lymphadenopathy. Extensive cor onary artery calcification present. No There is no evidence of pleural or pericardial effusion. Biapical opacities are most compatible with scarring, unchanged as compared to prior carotid CTA date d 04/29/2023. Stable 4 mm left basilar pulmonary nodule (axial image 86) as compared to prior abdomina l pelvic CT dated 03/27/2023. There are multifocal groundglass opacities with questionable intracavita ry or bubbly lesion in the right middle lobe. Largest lesion measures 2.5 cm in diameter (axial image s 51, 55, 57). There is patchy consolidation/nodularity at the anteromedial left upper lobe. Images through the upper abdomen reveal no abnormalities. Impression: Lung RADS 2-S: Benign appearance. 12 month follow-up screening CT advised. Patchy groundglass opacities in the right middle lobe, with patchy consolidation/nodularity of the an teromedial left upper lobe. Findings suggest infectious/inflammatory process. Short-term follow CT sc an in one-3 months recommended to reassess. Reviewed, dictated and finalized at location . Impression: Lung RADS 2-S: Benign appearance. 12 month follow-up screening CT advised. Patchy groundglass opacities in the right middle lobe, with patchy consolidatio n/nodularity of the anteromedial left upper lobe. Findings suggest infectious/i nflammatory process. Short-term follow CT scan in one-3 months recommended to sharron carlin.
--- OUTSIDE RECORDS SUMMARY | 2024-08-17 10:22 | XMS_ITS ---
Author Organization [facility] Address [address] [place] [address] Care Team Providers Care Inclusion Specialist Name Role Phone Eligio Shubham Unavailable [phone] PROBLEMS Problem Type ICD Code Onset Dates Problem Status W/U Status Risk SNOMED Code Notes Problem Chronic kidney disease, stage 3a (N18.31) Active confirmed Chronic kidney disease stage 3A (disorder) (345494283) Problem Edema, unspecified (R60.9) Active confirmed Edema (44902461) Problem Essential hypertension (I10) Active confirmed Essential hypertension (83846142) Problem Anxiety disorder, unspecified (F41.9) Active confirmed Anxiety disorde r (387836357) Problem Other proteinuria (R80.8) Active confirmed Proteinuria (96675376) Encounters Encounter Location Date Provider Diagnosis [place] [facility] [address] [address] 08/11/2023 Shubham Del Valle Chronic kidney disease, stage 3a N18.31 ; Edema, unspecified R60.9 ; Essential hypertension I10 ; Anxiety disorder, unspecified F41.9 and Other proteinuria R80.8 ASSESSMENTS Encounter Date Diagnosis Assessment Notes Treatment Notes Treatment Clinical Notes Section Notes 08/11/2023 Chronic kidney disease, stage 3a (ICD-10 - N18.31) 08/11/2023 Edema, unspecified (ICD-10 - R60.9) 08/11/2023 Essential hypertension (ICD-10 - I10) 08/11/2023 Anxiety disorder, unspecified (ICD-10 - F41.9) 08/11/2023 Other proteinuria (ICD-10 - R80.8) PLAN OF TREATMENT No Information Progress Notes * Pasha PEREZOB:[birth year] 56 (69 yo M)Acc No.[id number]:08/11/2023 Progress Notes Patient: Dea PEREZ Provider: MD GERARDO, Claire, F.A.S.N. :1955 Age:67 Y Sex:Male Date:08/11/2023 Address:[address] [place] [address] Subjective: * Chief Complaints: * * Medical History: Objective: Assessment: * Assessment: 1. Chronic kidney disease, stage 3a - N18.31 2. Edema, unspecified - R60.9 3. Essential hypertension - I10 4. Anxiety disorder, unspecified - F41.9 5. Other proteinuria - R80.8 Plan: * Treatment: * Billing Information: * Visit Code: 44322 Office Visit, New Pt., Level 5. * Procedure Codes: * Sign off status: Pending * Provider: MD GERARDO, VernellP, F.A.S.N. Date: 08/11/2023
--- OUTSIDE RECORDS SUMMARY | 2024-08-17 10:22 | XMS_ITS ---
Author Organization [facility] Address [address] [place] [address] Care Team Providers Care Disposal Plant Operator Name Role Phone Eligio Shubham Unavailable [phone] Encounters Encounter Location Date Provider Diagnosis [place] [facility] [address] [facility] 15 [place] [address] 12/27/2023 Shubham Del Valle Chronic kidney disease, stage 3a N18.31 ; Essential hypertension I10 ; Other proteinuria R80.8 ; Edema, unspecified R60.9 and Anxiety disorder, unspecified F41.9 ASSESSMENTS Encounter Date Diagnosis Assessment Notes Treatment Notes Treatment Clinical Notes Section Notes 12/27/2023 Chronic kidney disease, stage 3a (ICD-10 - N18.31) 12/27/2023 Essential hypertension (ICD-10 - I10) 12/27/2023 Other proteinuria (ICD-10 - R80.8) 12/27/2023 Edema, unspecified (ICD-10 - R60.9) 12/27/2023 Anxiety disorder, unspecified (ICD-10 - F41.9) PLAN OF TREATMENT No Information Progress Notes * Pasha PEREZOB:[birth year] 56 (69 yo M)Acc No.[id number]:12/27/2023 Progress Notes Patient: Dea PEREZ Provider: MD GERARDO, F.A.C.P, F.A.S.N. :1955 Age:68 Y Sex:Male Date:12/27/2023 Address:[address] [place], [place] [id number] Subjective: * Chief Complaints: * * Medical History: Objective: Assessment: * Assessment: 1. Chronic kidney disease, stage 3a - N18.31 (Primary) 2. Essential hypertension - I10 3. Other proteinuria - R80.8 4. Edema, unspecified - R60.9 5. Anxiety disorder, unspecified - F41.9 Plan: * Treatment: * Billing Information: * Visit Code: 04812 Office Visit, Est Pt., Level 4. * Procedure Codes: * Sign off status: Pending * Provider: MD GERARDO, F.A.C.P, F.A.S.N. Date: 12/27/2023
--- OUTSIDE RECORDS SUMMARY | 2024-08-17 10:22 | XMS_ITS | Clinical Summary ---
Author Organization [facility] Facility Address [address] [place] [address] Care Team Providers Care End Worker Name Role Phone Tenzin Vanna DOCUMENT ANALYST-Taylor Primary Care Provider Unava ilable Medications atorvastatin (LIPITOR) 40 MG tablet TAKE 1 TABLET BY MOUTH EVERYDAY AT BEDTIME 90 tablet 04/05/2021 Active Jardiance 25 MG tablet TAKE 1 TABLET BY MOUTH EVERY DAY IN THE MORNING 90 tablet 1 10/24/2022 Active Encounters Date Type Department Care Team Description 07/10/2024 Office Communication [facility], [address] [address] João De Leon DO from Last 3 Months Social History Tobacco Use Types Packs/Day Years Used Date Smoking Tobacco: Every Day Alcohol Use Standard Drinks/Week Comments No 0 (1 standard drink = 0.6 oz pur e alcohol) Comments Unknown Sex and Gender Information Value Date Recorded Sex Assigned at Not on file Legal Sex Female 10:14 AM EST Gender Identity Not on file Sexual Orientation Not on file Last Filed Vital Signs Vital Sign Reading Time Taken Comments Blood Pressure 126/62 06/07/2022 2:57 PM DICE TABLE OPERATOR Pulse 68 06/07/2022 2:57 PM DICE TABLE OPERATOR Temperature 36.3 C (97.4 F) 06/07/2022 2:57 PM DICE TABLE OPERATOR Respiratory Rate 18 06/07/2022 2:57 PM DICE TABLE OPERATOR Oxygen Saturation 99% 06/07/2022 2:57 PM DICE TABLE OPERATOR Inhaled Oxygen Concentration - - Weight 70.8 kg (156 lb) 02/25/2020 12:00 PM CDT Height 167.6 cm (5' 6 ) 06/07/2022 2:57 PM DICE TABLE OPERATOR Body Mass Index 25.18 02/25/2020 12:00 PM CDT Plan of Treatment Health Maintenance Due Date Last Done Comments Breast Cancer Screening 1955 Pneumococcal Vaccine: 65+ Ye ars (1 of 2 - PCV) 08/15/1961 Colorectal Cancer Screening: Annual FOBT 08/15/2004 Colorectal Cancer Screening: Colonoscopy 08/15/2004 Colorectal Cancer Screening: Sigmoidoscopy 08/15/2004 Hepatitis B Vaccine (1 of 3 - Risk 3-dose series) 2015 Diabetes: Hemoglobin A1C 10/15/2020 Diabetes: Ophthalmology Exam 10/15/2020 Diabetes: Pedal Pulse Checked 10/15/2020 Diabetes: Sensory Foot Exam 10/15/2020 Diabetes: Visual Foot Exam 10/15/2020 Influenza Vaccine Completed 02/15/2024, , 04/02/2019, Additional history exists Insurance MEDICAID [place] Care Teams End Worker Relationship Specialty Start Date End Date Vanna Dave FNP-C PCP - General Nurse Practitioner 02/07/22
--- OUTSIDE RECORDS SUMMARY | 2024-08-17 10:22 | XMS_ITS | Encounter Summary ---
Author Organization [facility] , [facility] Address [address] [facility] [place] [address] Phone Care Team Providers Care Sort Line Name Role Phone Vanna Dave Primary Care Provider Unava ilable Reason for Visit * Reason Comments Med Refill Encounter Details Date Type Department Care Team (Late st Contact Info) Description 08/30/2023 Refill [place] [facility], [facility] [address] [facility] 15 [place] [address] João De Leon, [address] [facility] 1 [place] [address] Social History Tobacco Use Types Packs/Day Years Used Date Smoking Tobacco: Every Day Alcohol Use Standard Drinks/Week Comments No 0 (1 standard drink = 0.6 oz pur e alcohol) Comments Unknown Sex and Gender Information Value Date Recorded Sex Assigned at Not on file Legal Sex Female 10:14 AM EST Gender Identity Not on file Sexual Orientation Not on file documented as of this encounter Plan of Treatment Not on file documented as of this encounter Visit Diagnoses Not on filedocumented in this encounter Care Teams Sort Line Relationship Specialty Start Date End Date Vanna Dave FNP-C PCP - General Nurse Practitioner 02/07/22 documented as of this encounter
--- OUTSIDE RECORDS SUMMARY | 2024-08-17 10:23 | XMS_ITS | CONTINUITY OF CARE DOCUMENT ---
Author Name estevan barreto Address Unknown Organization [facility] Address [address] [facility] [address] [place] [address] Phone [phone] Care Team Providers Care Tar Heater Operator Name Role Phone Lesia HENRY, Carlos Alberto Mcelroy Unavailable TERENCE MARTINEZ MD Unavailable TERENCE MARTINEZ MD Unavailable PROBLEMS Condition Status Date Provider Notes Chest pain-type to be determined active Eddie Del Valle MD Tobacco abuse active Eddie Del Valle MD Hypercholesterolemia ldl 81, TG 105, HDL34 active Eddie Del Valle MD DM - type 2 aic 5.9 active Eddie Del Valle MD HTN essential completed - Eddie Del Valle MD Family History of Hypertension: completed - Carlos Alberto Graf MD Bladder cancer active Eddie Del Valle MD COPD active Eddie Del Valle MD C V A / Stroke active Carlos Alberto bazzi MD (History of) Cardiac murmur active Carlos Alberto bazzi MD CVA active Carlos Ablerto stapleton MD Aortic valve sclerosis active Betina Graf MD Cardiac murmur active Carlos Alberto bazzi MD HTN essential active Carlos Alberto de la rosa MD Atrial fib paroxysmal active Ascencion Graf MD ENCOUNTERS Date Type Provider Location Encounter Diag nosis - In-person encounter Office Visit Carlos Alberto Graf MD [place] [facility] HTN essential - In-person encounter Office Visit Carlos Alberto Graf MD [facility] Family History of Hypertension:Aortic valve sclerosisCardiac murmur - In-person encounter Office Visit Carlos Alberto Graf MD [place] C V A / StrokeCardiac murmurCVAAtrial fib paroxysmal - In-person encounter Office Visit Eddie Del Valle MD [facility] Office - In-person encounter Office Visit Eddie Del Valle MD [facility] HTN essentialBladder cancerCOPD VITAL SIGNS Date Observation Value Provider Body Mass Index (Ratio) 20.66 kg/m2 Cheryl Graf MD blood pressure, diastolic 68 mm[Hg] Li nkLogic blood pressure, systolic 114 mm[Hg] Darlene kLogic blood pressure, cuff size regular [facility] blood pressure, diastolic 68 mm[Hg] Ja [facility] blood pressure, systolic 114 mm[Hg] [facility] pulse rate 78 /min Jeet respiratory rate E&M 14 /min Jeet oxygen saturation, oximetry 97 % Jeet weight E&M 128 [lb_av] Jeet height E&M 66 [in_i] Jeet Body Mass Index (Ratio) 19.04 kg/m2 Cheryl Graf MD blood pressure, cuff size regular Ke rri Gruenenfeldnicki blood pressure, diastolic 80 mm[Hg] Ke rri Gruenenfelder blood pressure, systolic 122 mm[Hg] Chelsy Hendricks oxygen saturation, oximetry 96 % Magui Hendricks respiratory rate E&M 12 /min Magui martinoelder pulse rate 93 /min Magui Morales er weight E&M 118 [lb_av] Magui Morales [facility] height E&M 66 [in_i] Magui Morales [facility] Body Mass Index (Ratio) 19.04 kg/m2 Maikel Santana blood pressure, diastolic 68 mm[Hg] Li nkLog blood pressure, systolic 107 mm[Hg] Darlene og blood pressure, cuff size regular [facility] blood pressure, diastolic 68 mm[Hg] [facility] blood pressure, systolic 107 mm[Hg] [facility] pulse rate 79 /min [facility] oxygen saturation, oximetry 99 % [facility] respiratory rate E&M 16 /min Leta vásquez weight E&M 118 [lb_av] [facility] height E&M 66 [in_i] [facility] Body Mass Index (Ratio) 21.46 kg/m2 Rich Del Valle MD blood pressure, diastolic 60 mm[Hg] Li nkLogic blood pressure, systolic 96 mm[Hg] Darlene kLogic blood pressure, diastolic 60 mm[Hg] Carleen Pereira blood pressure, systolic 96 mm[Hg] Kizzy Pereira pulse rate 83 /min Pablo hinojosa oxygen saturation, oximetry 96 % Pablo Pereira blood pressure, resting No Benito marie Pereira respiratory rate E&M 18 /min Elena Pereira weight E&M 133 [lb_av] Pablo hinojosa height E&M 66 [in_i] Pablo hinojosa ALLERGIES No Known Drug Allergies HISTORY OF MEDICATION USE Medication Status Instructions Dates Provider Indications Com ments Nicoderm CQ 21 mg/24 hr patch 24 hour active Apply 1 patch to skin once a day Carlos Alberto Graf MD nicotine (polacrilex) 4 mg lozenge completed Chew 1 lozenge in mouth as directed every 2 -3 hours - Carlos Alberto Graf MD nicotine (polacrilex) 4 mg lozenge completed Chew 1 piece in mouth as directed As needed for tobacco cessation - Carlos Alberto Graf MD glyburide 5 mg tablet active TAKE 1 TABLET BY MOUTH EVERY DAY Eddie Del Valle MD omeprazole 40 mg capsule,delayed release(DR/EC) active 1 capsule by mouth once a day Pablo Pereira lisinopril 2.5 mg tablet active tablet by mouth once a day Pablo Pereira Jardiance 10 mg tablet active Take 1 tablet by mouth once a day Pablo Pereira #90, 90 days supply, Prescribed by SUSAN SHANE, Filled 09/10/2020 metformin 500 mg tablet active Take 1 tablet by mouth twice a day Pablo Pereira #180, 90 days supply, Prescribed by SUSAN SHANE, Filled 09/14/2020 Victoza 2-Nacho 0.6 mg/0.1 mL (18 mg/3 mL) pen injector active INJECT 0.6 MG UNDER THE SKIN DAILY X 1 WEEK THEN 1.2 MG DAILY Pablo Pereira #6, 30 days supply, Prescribed by SUSAN SHANE, Filled 10/05/2020 atorvastatin 40 mg tablet active Take 1 tablet by mouth every night Pablo Pereira #90, 90 days supply, Prescribed by ALFRED MEZA, Filled 10/11/2020 SOCIAL HISTORY Date Observation Value Provider smoking/tobacco cess ation, patient education and counseling yes Carlos Alberto Graf MD chewing tobacco use Current Carlos Alberto Graf MD smoking status Current every day smoker S jaret Graf MD smoking/tobacco cess ation, patient education and counseling yes Carlos Alberto Graf MD chewing tobacco use Current Carlos Alberto Graf MD smoking status Current every day smoker S jaret Graf MD number of grandchildren Carlos Alberto Graf MD smoking/tobacco cess ation, patient education and counseling yes Leta Pickens chewing tobacco use Current Leta arzate smoking status Current every day smoker Vince Pickens social history E&M S moking History: P atduke currently smokes every day. P atient has been counseled to quit. Real Gil smoking/tobacco cess ation, patient education and counseling yes Real Gil smoking status Current every day smoker R johnson Gil chewing tobacco use Current Real garcia social history reviewed E&M revi ewed - no changes required Real Gil FAMILY HISTORY Family Member Condition Father Family History of Hy pertension: Mother Family History of Di abetes: INSURANCE PROVIDERS Payer name Policy type / Coverage type [place] red democrat ID [facility] COMPLETE CARE [id number] (PPO C-SNP) Commercial insurance company [id number] HEALTHC[employer] AND FAMILY SERVICES Medicaid 0 [id number] ADVANCE DIRECTIVES Name Date DISCUSSED - NO DECISION MADE TREATMENT PLAN Date Name Performer [id number],SReal i [id number],SReal i [id number],SReal i [id number],SReal i [id number],SReal i Cardiology:Discussio n of benefits for remote patient monitoring took place. Patient gives consent for remote monitoring of physiologic parameters including, but not limited to, weight, blood pressure, pulse oximetry, respiratory flow rate. C urrently on lisinopril. Had had prior CVA. Will need to check and make sure there's no progressive. Carlos Alberto Graf MD Cardiology:1PPD T he Patient was reencouraged to stop smoking. S tart nicotine patches Carlos Alberto Graf MD Cardiology: N o afib noted on telemetry. Had PACs, rare PVCs, and SVT. Sinus Rhythm with 1 paroxysmal Supraventricular Tachycardia e vent, rare Ventricular ectopics, and rare Supraventricular e ctopics. The average heart rate was 90bpm with a maximum r ate of 116bpm and a minimum rate of 70bpm. PSVT: 5 beats, 1 58bpm. VE?s were documented as isolated beats. SVE?s were d ocumented as couplets and isolated beats October 13, 2023 O n the basis of CTA, she was advised for follow up. Disucssed with her regarding ILR implant. Since she had episodes of afib, need to evaluate for cryptogenic stroke. Carlos Alberto Graf MD Cardiology: U nclear reason why she had a CVA, vision changes, placed on asa o rior Hx of Afib, check telemonitor and get CT report from Benjamin Mathias IMPRESSION: N o acute intracranial process. N o large vessel occlusion. S evere short segment stenosis at the origin of the left vertebral artery. 4 0% stenosis of the proximal right internal carotid artery. 1.7 cm mixed solid and cystic right thyroid nodule, recommend nonemergent outpatient thyroid ultrasound for further c haracterization. M 2023 O n the basis of CTA, she was advised for follow up. Disucssed with her regarding ILR implant. Since she had episodes of afib, need to evaluate for cryptogenic stroke. Carlos Alberto Graf MD Cardiology: C AROTID CONCLUSIONS: 1 . Mild plaque with less than 50% stenosis of the internal carotid arteries bilaterally. 2 . Vertebral flow is antegrade bilaterally. T here was no afib noted on telemetry. No significant carotid stenosis. Carlos Alberto Graf MD Cardiology:CONCLUSIO NS: 1 . Normal left ventricular systolic function. Normal left ventricular size. Normal left ventricular wall thickness. There is E to A w ave reversal consistent with impaired LV relaxation. E/E': 6.6. Left ventricular ejection fraction is measured at 55 %. 2 . Normal right ventricular size. Normal right ventricular systolic function. 3 . There is aortic valve calcification without stenosis. No evidence of aortic insufficiency. Peak AV velocity: 2.20 m/s. The A ortic Valve Peak Gradient is 19.20 mmHg. The Aortic Valve Mean Gradient is 11.50 mmHg. The MELVI is 1.5 cm2. 4 . Normal aortic root size. Sinus of Valsalva is 3.10 cm. Ascending Aorta is 3.40 cm. Carlos Alberto Graf MD Cardiology:CONCLUSIO NS: 1 . Normal resting ECG. 2 . Normal Regadenoson ECG with no ischemic ST or T changes, following vasodilator stress. 3 . Normal left ventricle size. 4 . Left Ventricular Ejection Fraction is 65 % TID: 1.05. 5 . Normal myocardial perfusion imaging with no evidence of ischemia or scar. E lectronically signed by Carlos Alberto Graf MD on 10/13/2023 at 3:27 PM Carlos Alberto Graf MD Cardiology: S eems to ahve aortic valve sclerosis instead of stenosis. Carlos Alberto Graf MD Cardiology:Seems to ahve aoretic valve sclerosis instead of stenosis. Carlos Alberto Graf MD Cardiology: T he Patient was reencouraged to stop smoking. S tart nicotine lozenges Carlos Alberto Graf MD Cardiology:Check PFTs. Carlos Alberto Graf MD Cardiology:CAROTID C ONCLUSIONS: 1 . Mild plaque with less than 50% stenosis of the internal carotid arteries bilaterally. 2 . Vertebral flow is antegrade bilaterally. T here was no afib noted on telemetry. No significant carotid stenosis. Carlos Alberto Graf MD Cardiology:Preserved EF on echo. Will need to get stress test. ECHO CONCLUSIONS: 1 . Normal left ventricular systolic function. Normal left ventricular size. Normal left ventricular wall thickness. There is E to A w ave reversal consistent with impaired LV relaxation. E/E': 6.6. Left ventricular ejection fraction is measured at 55 %. 2 . Normal right ventricular size. Normal right ventricular systolic function. 3 . There is aortic valve calcification without stenosis. No evidence of aortic insufficiency. Peak AV velocity: 2.20 m/s. The A ortic Valve Peak Gradient is 19.20 mmHg. The Aortic Valve Mean Gradient is 11.50 mmHg. The MELVI is 1.5 cm2. 4 . Normal aortic root size. Sinus of Valsalva is 3.10 cm. Ascending Aorta is 3.40 cm. Carlos Alberto Graf MD Cardiology:No afib n oted on telemetry. Had PACs, rare PVCs, and SVT. Sinus Rhythm with 1 paroxysmal Supraventricular Tachycardia e vent, rare Ventricular ectopics, and rare Supraventricular e ctopics. The average heart rate was 90bpm with a maximum r ate of 116bpm and a minimum rate of 70bpm. PSVT: 5 beats, 1 58bpm. VE?s were documented as isolated beats. SVE?s were d ocumented as couplets and isolated beats Carlos Alberto Graf MD Cardiology Carlos Alberto Graf MD Cardiology:Get blood work from Baldo Graf MD Cardiology:The Patie nt was reencouraged to stop smoking. Carlos Alberto Graf MD Cardiology:check telmonitor Cheryl Graf MD Cardiology:systolic murmur noted , check echo Carlos Alberto Graf MD Cardiology:Unclear r jason why she had a CVA, vision changes, placed on asa o rior Hx of Afib, check telemonitor and get CT report from Benjamin Graf MD Cardiology Real Gil Cardiology Real Gil Cardiology Real Keei Cardiology Real Keei Cardiology Real Gil Date Name BASIC METABOLIC PANE L W/EGFR RPM (remote patient monitoring) Stress Regadenoson 6 minute walk test Ambulatory Oxygen Ti tration Study Sleep Study Home DLCO - 13231 FRC - 38145 FVC - 05212 Carotid Duplex Bilat eral Complete Echo RPM (remote patient monitoring) Holter Monitor 48 hr Stress Exercise Card iolite Complete Echo HISTORY OF PROCEDURES Procedure Date Procedure Name Provider Procedure Notes S tatus EKG Carlos Alberto Graf MD compl eted EKG Carlos Alberto Graf MD compl eted EKG Eddie Del Valle MD completed
--- OUTSIDE RECORDS SUMMARY | 2024-08-17 10:23 | XMS_ITS | Patient Health Record ---
Author Organization [facility] Address [address] [place] [address] Care Team Providers Care Shipwright Supervisor Name Role Phone Shubham Del Valle Unavailable [phone] REASON FOR REFERRAL No Information MEDICATIONS Medication SIG (Take, Route, Frequency, Duration) Notes Start Date End Date Status Sodium Bicarbonate 650 MG TAKE 2 TABLETS BY MOUTH TWICE A DAY DIRECTED for 90 Active PROBLEMS Problem Type ICD Code Onset Dates Problem Status W/U Status Risk SNOMED Code Notes Problem Anxiety disorder, unspecified (F41.9) Active confirmed Anxiety disorde r (791889024) Problem Edema, unspecified (R60.9) Active confirmed Edema (86966354) Problem Other proteinuria (R80.8) Active confirmed Proteinuria (66460034) Problem Essential hypertension (I10) Active confirmed Essential hypertension (43608695) Problem Chronic kidney disease, stage 3a (N18.31) Active confirmed Chronic kidney disease stage 3A (disorder) (689852411) Encounters Encounter Location Date Provider Diagnosis [facility] [address] [place] [address] 12/27/2023 Shubham Del Valle Chronic kidney disease, stage 3a N18.31 ; Essential hypertension I10 ; Other proteinuria R80.8 ; Edema, unspecified R60.9 and Anxiety disorder, unspecified F41.9 [facility] [address] [place] [address] 12/27/2023 Shubham Del Valle ASSESSMENTS Encounter Date Diagnosis Assessment Notes Treatment Notes Treatment Clinical Notes Section Notes 12/27/2023 Essential hypertension (ICD-10 - I10) 12/27/2023 Chronic kidney disease, stage 3a (ICD-10 - N18.31) 12/27/2023 Other proteinuria (ICD-10 - R80.8) 12/27/2023 Edema, unspecified (ICD-10 - R60.9) 12/27/2023 Anxiety disorder, unspecified (ICD-10 - F41.9) PLAN OF TREATMENT No Information
--- OUTSIDE RECORDS SUMMARY | 2024-08-17 10:23 | XMS_ITS | Clinical Summary ---
Author Organization [facility] Address [address] [place] [address] Care Team Providers Care Risk Management Consultant Name Role Phone Vanna Dave ROSALIE-DUMP MOTORMAN Primary Care Provider [phone] Source Comments [facility],non-owned Affiliates and Associated Physician Practices is amultiple site organization consisting of ambulatory clinics and hospital sitesin [place], [place], [place] and [place]. This disclosure is being madepursuant to the Care Everywhere program and may not contain all information available regarding this patient. Last updated 18.Oh My Green! Allergies No known active allergies Medications * Be aware that medications may not be up to date on this document. Alwaysverify current medications with the patient. Medication Sig Dispensed Refills Start Date End Date Status metFORMIN (GLUCOPHAGE) 500 MG tablet Take 1 (one) tablet by mouth 2 times daily with morning and evening meal Active VICTOZA 18 MG/3ML penIndications:Ty pe 2 Diabetes Mellitus Inject 1.2 mg subcutaneously once daily takes in PM HOLDING IF BS IS BELOW 100 Reasons: Type 2 Diabetes 07/10/2020 Active omeprazole (PRILOSEC) 40 MG capsule Take 1 (one) capsule by mouth daily before breakfast takes 3 days per week 10/26/2020 Active atorvastatin (LIPITOR) 40 MG tablet TAKE 1 TABLET BY MOUTH EVERYDAY AT BEDTIME 10/11/2020 Active alendronate (Fosamax) 70 MG tablet alendronate 70 mg tablet Take 1 tablet every week by oral route. Active vitamin D, ergocalciferol, (Drisdol) 1.25 MG (71394 UT) capsule Take 1 (one) capsule by mouth every 7 days 02/14/2022 Active empagliflozin (Jardiance) 25 MG tablet every 24 hours Active Blood Glucose Monitoring Suppl (True Metrix Meter) w/Device KIT as directed 08/12/2022 Active True Metrix Blood Glucose Test test strip USE TO TEST ONCE DAILY 11/08/2022 Active BD Pen Needle Micro U/F 32G X 6 MM MISC USE TO INJECT ONCE DAILY 11/14/2022 Active Lancets (ONETOUCH DELICA PLUS 33G EXTRA FINE LANCET) USE TO TEST ONCE DAILY DIRECTED 08/12/2022 Active docusate sodium (Colace) 100 MG capsule Take 1 (one) capsule by mouth 2 times daily as needed for Constipation (relief of difficult bowel movements) 12/28/2022 Active polyethylene glycol 3350 (Miralax) 17 g packet Take 17 (seventeen) g by mouth once daily as needed for Constipation 12/28/2022 Active acetaminophen (Tylenol) 500 MG tablet Take 1 (one) tablet by mouth every 6 hours as needed for Fever or Pain Maximum allowable Acetaminophen amount = 4 Grams (4000 mg) / 24 hours. 0 12/28/2022 Active apixaban (Eliquis) 2.5 MG tablet Take 1 (one) tablet by mouth 2 times daily for 28 days 56 tablet 01/31/2023 Active HYDROcodone-aceta minophen (Slovan) 5-325 MG tabletIndications :Malignant neoplasm of posterior wall of urinary bladder (HCC) Take 1 (one) tablet by mouth every 6 hours as needed for Pain 12 tablet 01/30/2023 Active Nutritional Supplement LIQD Take 1 bottles by mouth 3 times daily Low Calorie High Protein Supplement Examples: Ensure High Protein/Boost High Protein/Premier Protein High Calorie High Protein Supplement Examples: Ensure Enlive/Ensure Plus/Boost Plus/Equate Plus/Thrive Diabetic Supplement Examples: Ensure High Protein/Glucerna/Melyssa t Glucose Control/Enterex Diabetic Clear Liquid Supplement Examples: Ensure Clear/Premier Protein Clear/Resource Boost Breeze/Prosource High Protein Gelatin Vegan or Milk Free Supplement Examples: Ensure Plant/Orgain 02/13/2023 Active HYDROcodone-aceta minophen (Slovan) 5-325 MG tabletIndications :Abscess,Malignan t neoplasm of posterior wall of urinary bladder (HCC) Take 1 (one) tablet by mouth every 8 hours as needed 12 tablet 02/16/2023 Active micafungin (Mycamine) 100 MG injection 02/23/2023 Active piperacillin - tazobactam (Zosyn) injection 02/23/2023 Active Heparin Sod, Pork, Lock Flush (Heparin Na, Pork, Lock Flsh PF) 10 UNIT/ML SOLN 02/23/2023 Active Active Problems Problem Noted Date Diagnosed Date Abscess 02/04/2023 DUSTIN (acute kidney injury) 01/26/2023 Abdominal pain, generalized 12/25/2022 Left flank pain 12/25/2022 Acute pyelonephritis 12/25/2022 Urinary tract infection without hematuria, site unspecified 12/25/2022 Malignant neoplasm of posterior wall of urinary bladder Immunizations Name Administration Dates Next Due Covid Moderna primary monovalent 12+ yr 0.5mL ,07/23/2020 INFLUENZA VACCINE 04/21/2022,03/10/2019 MODERNA SARS-COV-2 COVID-19 VACCINE 0.25ML 05/08 Social History Tobacco Use Types Packs/Day Years Used Date Smoking Tobacco: Every Day Cigarettes 1.5 55 Smokeless Tobacco: Never Tobacco Cessation:Ready to Q uit: Not Asked; Counseling Given: Not Answered Comments:trying to quit maybe alittle less than a full pack Alcohol Use Standard Drinks/Week Comments Never 0 (1 standard drink = 0.6 oz pur e alcohol) AUDIT-C Answer Date Recorded Q1: How often do you have a drink containing alcohol? Never 01/24/2023 Q2: How many drinks containi ng alcohol do you have on a typical day when you are drinking? Patient does not drink Q3: How often do you have si x or more drinks on one occasion? Never 01/24/2023 Overall Financial Resource Strain (CARDIA) Answe r Date Recorded How hard is it for you to pa y for the very basics like food, housing, medical care, and heating? Not hard at all 02/05/2023 [facility] [place] [facility] - Occupational Stress Questionnaire Answer Date Recorded Do you feel stress - tense, restless, nervous, or anxious, or unable to sleep at night because your mind is troubled all the time - these days? Not at all 02/05/2023 Hunger Vital Sign Answer Date Recorded Within the past 12 months, y ou worried that your food would run out before you got the money to buy more. Never true 02/06/20 23 Within the past 12 months, t he food you bought just didn't last and you didn't have money to get more. Never true 02/05/2023 PRAPARE - Transportation Answer Date Re corded In the past 12 months, has l ack of transportation kept you from medical appointments or from getting medications? No 01/20 In the past 12 months, has l ack of transportation kept you from meetings, work, or from getting things needed for daily living? No 02/05/2023 Housing Stability Vital Sign Answer Wale e Recorded In the last 12 months, was t here a time when you were not able to pay the mortgage or rent on time? No 02/05/2023 In the last 12 months, how many places have you lived? 1 02/05/2023 In the last 12 months, was t here a time when you did not have a steady place to sleep or slept in a correction (including now)? No 02/05/2023 Sex and Gender Information Value Date Recorded Sex Assigned at Not on file Gender Identity Not on file Sexual Orientation Not on file Last Filed Vital Signs Vital Sign Reading Time Taken Comments Blood Pressure 109/70 02/27/2023 2:59 PM CDT Pulse 104 02/27/2023 2:59 PM CDT Temperature 36.7 C (98 F) 02/27/2023 2:59 PM CDT Respiratory Rate 20 02/16/2023 7:52 AM CDT Oxygen Saturation 96% 02/27/2023 2:59 PM CDT Inhaled Oxygen Concentration 21% 12/18/2019 7 :12 PM CDT Weight 49 kg (108 lb) 02/16/2023 4:49 AM CDT Height 157.5 cm (5' 2 ) 02/07/2023 7:54 AM CDT Body Mass Index 19.75 02/07/2023 7:54 AM CDT Plan of Treatment Health Maintenance Due Date Last Done Comments BONE DENSITY TESTING 1955 COLOGUARD (AGES 45-75) - COLON CA SCREENING 1955 COLON MONITORING 1955 COLONOSCOPY - COLON CA SCREENING 1955 CT COLONOGRAPHY - COLON CA SCREENING 1955 Colorectal Cancer Screening 1955 FIT - COLON CA SCREENING 1955 FLEX SIG - COLON CA SCREENING 1955 MAMMOGRAM 1955 HEPATITIS C SCREENING 08/11/1973 DTAP/TDAP/TD VACCINES (1 - Tdap) 08/15/1974 PNEUMOCOCCAL VACCINE 50+ (1 of 2 - PCV) 08/15/1974 LUNG CANCER SCREENING 08/15/2005 ZOSTER VACCINE (1 of 2) 08/15/2005 Respiratory Syncytial Virus (RSV) Vaccine Pt: or over 60 yrs (1 - Risk 60-74 years 1-dose series) 2015 COVID-19 VACCINE ( season) 2024 04/27/2022, 05/08/2021, 08/19/2020, Additional history exists INFLUENZA VACCINE (#1) 2024 , 04/21/2022, 03/22/2022, Additional history exists DEPRESSION SCREENING 05/22/2024 MEDICARE AWV CALENDAR YEAR 2024 HEPATITIS B VACCINE Aged Out No longe r eligible based on patient's age to complete this topic HIB VACCINE Aged Out No longer eligi ble based on patient's age to complete this topic HPV VACCINE Aged Out No longer eligi ble based on patient's age to complete this topic MENINGOCOCCAL (Group B) VACCINE SHARED DECISION-MAKING Aged Out No longer eligible based on patient's age to complete this topic MENINGOCOCCAL GROUPS A/C/Y/W VACCINE Aged Out No longer eligible based on patient's age to complete this topic Medical Devices Implanted Type Area Mds Coordinator Device Identifier Shelf Expiration Date Model / Serial / Lot Stent Uret 7fr 26cm Sft Tria Implanted:Qty: 1 on 01/24/2023 by Silvano Rodríguez MD at [facility] [employer] 09/23/2024 [id number] / / [id number] Stent Uret 7fr 26cm Sft Tria Implanted:Qty: 1 on 01/24/2023 by Silvano Rodríguez MD at [facility] Left: Ureter [employer] [facility] 04/03/2025 [id number] / / [id number] Advance Directives * Full Code (Latest Code Status on File) Date Activated Date Inactivated Comments 02/05/2023 1:50 AM 02/16/2023 12:55 PM * Full Code Date Activated Date Inactivated Comments 01/24/2023 5:38 PM 01/30/2023 4:36 PM * Full Code Date Activated Date Inactivated Comments 12/25/2022 1:27 AM 12/29/2022 11:11 AM * Full Code Date Activated Date Inactivated Comments 12/18/2019 1:11 PM 12/18/2019 10:05 PM * Full Code Date Activated Date Inactivated Comments 11/06/2019 9:35 AM 11/06/2019 4:21 PM Care Teams Risk Management Consultant Relationship Specialty Start Date End Date Vanna Dave APRN-CNP [address] [address] PCP - General 11/20/20
--- OUTSIDE RECORDS SUMMARY | 2024-08-17 10:23 | XMS_ITS ---
Author Organization [facility] Address [address] [address] [place] [address] Care Team Providers Care Office Technologist Name Role Phone Shubham Del Valle Unavailable [phone] MEDICATIONS Medication SIG (Take, Route, Frequency, Duration) Notes Start Date End Date Status Sodium Bicarbonate 650 MG as directed Orally twice a day for 90 days 1300 mg BID 12/27/2023 Active Encounters Encounter Location Date Provider Diagnosis [place] [facility] [address] [id number] 12/27/2023 Shubham Del Valle PLAN OF TREATMENT Medication Medication Name Sig Start Date Stop Date Notes Sodium Bicarbonate 650 MG as directed Or ally twice a day for 90 days 12/27/2023 1300 mg BID Progress Notes * Pasha PEREZOB:[birth year] (68 yo M)Acc No.[id number]:12/27/2023 Patient: Dea PEREZ :1955 Age:68 Y Sex:Male Address:[address] [place] [address] * Refills Start Sodium Bicarbonate Tablet, 650 MG, Orally, 360 Tablet, as directed, twice a day, 90 days, Refills=0 * true * Date:
--- OUTSIDE RECORDS SUMMARY | 2024-08-17 10:23 | XMS_ITS | Encounter Summary ---
Author Organization [employer] , [facility] Address [address] [place] [phone] Phone Care Team Providers Care Software Configuration Engineer Name Role Phone Vanna Dave Primary Care Provider Unava ilable Reason for Visit * Reason Comments Med Refill Encounter Details Date Type Department Care Team (Late st Contact Info) Description 06/28/2021 Refill [place] [facility] [place], [address] [address] [place]ão [place] [address] [place] [phone] Social History Tobacco Use Types Packs/Day [...] on filedocumented in this encounter Care Teams Software Configuration Engineer Relationship Specialty Start Date End Date Vanna Dave FNP-C PCP - General Nurse Practitioner 02/07/22 documented as of this encounter
--- OUTSIDE RECORDS SUMMARY | 2024-08-17 10:23 | XMS_ITS ---
Author Organization [facility] Address [address] [facility] [place] [address] Care Team Providers Care Ruby Engineer Name Role Phone HopperJanesmarielle WIGGINS-CELL STRIPPER FINAL Primary Care Provider [phone] Active Problems Problem Noted Date Diagnosed Date Abscess 02/04/2023 DUSTIN (acute kidney injury) 01/26/2023 Abdominal pain, generalized 12/25/2022 Left flank pain 12/25/2022 Acute pyelonephritis 12/25/2022 Urinary tract infection without hematuria, site unspecified 12/25/2022 Malignant neoplasm of posterior wall of urinary bladder Current Oncology Plans No current plan information found. Past Plans No past plan information found. Radiation Treatments * No radiation treatments are documented for this patient in [facility]. Treatments may have been administered in another system. Lifetime Dose Tracking * Chemical Lifetime Dose Automatic Entry Manual Entr y Dose Length Product 1,336.45 mGy-cm 1,336.45 mGy-cm 0 mGy-cm
--- OUTSIDE RECORDS SUMMARY | 2024-08-17 10:23 | XMS_ITS | Clinical Summary ---
Author Organization [facility] Address [address] [place] [address] Care Team Providers Care Wildland Fire Fighter Name Role Phone Clara Barber MD Primary Care Provider Allergies No known active allergies Medications atorvastatin (LIPITOR) 40 mg tablet Take 1 Tablet by mouth daily at bedtime. 1 Active metFORMIN (GLUCOPHAGE) 500 mg tablet Take 500 mg by mouth daily with breakfast. Active omeprazole (PriLOSEC) 40 mg Capsule, Delayed Release(E.C.) Take 40 mg by mouth daily. Active aspirin (ECOTRIN EC) 81 mg Tablet, Delayed Release (E.C.) Take 81 mg by mouth daily. Active cyanocobalamin (VITAMIN B-12) 1,000 mcg/mL Solution Inject 1,000 mcg by intramuscular injection every 30 days. 4 Active alendronate (FOSAMAX) 70 mg tablet Take 70 mg by mouth every 7 days. Active Active Problems No known active problems Encounters Date Type Department Care Team Description 08/07/2024 External Device Data [facility] ABSTRACTION Provider, Abstract 07/31/2024 External Device Data [facility] ABSTRACTION Provider, Abstract 07/30/2024 External Device Data [facility] ABSTRACTION Provider, Abstract 07/27/2024 External Device Data [facility] ABSTRACTION Provider, Abstract 07/26/2024 External Device Data [place] ABSTRACTION Provider, Abstract 07/24/2024 External Device Data [place] ABSTRACTION Provider, Abstract 07/17/2024 Orders Only [facility] [place] [address] [address] Tommie Williamson MD Essential (hemorrhagic) thrombocythemia (CMS/HCC) (Primary Dx) 07/11/2024 Telephone [facility] [place] [address] [place] [address] Tommie Williamson MD Requesting Sooner Appointment (Patient No showed FU appt. Called to schedule FU -LM on VM ) 07/10/2024 External Device Data STL ABSTRACTION Provider, Abstract 07/10/2024 External Device Data ST[facility] ABSTRACTION Provider, Abstract 06/13/2024 External Device Data [facility] ABSTRACTION Provider, Abstract 06/04/2024 External Device Data ST[facility] ABSTRACTION Provider, Abstract from Last 3 Months Family History Medical History Relation Name Comments Leukemia Brother 6 brothers No Known Problems Child 1 No Known Problems Child 2 No Known Problems Child 3 Hypertension Father Diabetes Mother Leukemia Sister 5 sisters Relation Name Status Comments Brother 6 brothers Alive Child 1 Alive Child 2 Alive Child 3 Alive Father Mother Sister 5 sisters Social History Tobacco Use Types Packs/Day Years Used Date Smoking Tobacco: Every Day Cigarettes 1 50.8 Started: 11/14/1973 Smokeless Tobacco: Never Tobacco Cessation:Ready to Q uit: Not Asked; Counseling Given: Not Answered Alcohol Use Standard Drinks/Week Comments Not Currently 0 (1 standard drink = 0.6 oz pur e alcohol) Socially Comments Unknown Sex and Gender Information Value Date Recorded Sex Assigned at Not on file Legal Sex Female 8:27 AM CDT Gender Identity Not on file Sexual Orientation Not on file Last Filed Vital Signs Vital Sign Reading Time Taken Comments Blood Pressure 139/68 11/15/2023 10:49 AM CDT Pulse 68 11/15/2023 10:49 AM CDT Temperature 36.3 C (97.4 F) 11/15/2023 10:49 AM CDT Respiratory Rate 15 11/15/2023 10:4 9 AM CDT Oxygen Saturation 95% 11/15/2023 10: 49 AM CDT Inhaled Oxygen Concentration - - Weight 58.9 kg (129 lb 12.8 oz) 024 10:49 AM CDT Height 165.1 cm (5' 5 ) 11/15/2023 10:4 9 AM CDT Body Mass Index 21.6 11/15/2023 10:49 AM CDT Plan of Treatment Upcoming Encounters Date Type Department Care Team (Late st Contact Info) Description 11/04/2024 2:30 PM CDT Office Visit [facility] [place] [address] [place] [address] Tommie Williamson MD [address] [facility] [address] [place] [address] Health Maintenance Due Date Last Done Comments DIABETES ANNUAL FOOT EXAM 08/15/1973 DIABETES ANNUAL RETINAL EXAM 08/15/1973 DIABETES MICROALBUMIN ANNUAL SCREEN 08/15/1973 LDL CHOLESTEROL ANNUAL 08/15/1973 DTAP/TDAP/TD VACCINES (1 - Tdap) 08/15/1974 BREAST CANCER SCREENING 1995 COLORECTAL SCREENING 08/15/2000 Colorectal Cancer Screening 08/15/2000 FIT-DNA Q 3 years 08/15/2000 FIT/FOBT Q 1 year 08/15/2000 Flex Sig/CT Colonography Q 5 years 08/15/2000 Lung Cancer Screening 08/15/2005 ZOSTER VACCINE (1 of 2) 08/15/2005 RSV VACCINE (60+ or ) (1 - Risk 60-74 years 1-dose series) 2015 OSTEOPOROSIS SCREENING 08/15/2020 DIABETES HBA1C Q 6 MONTHS 07/13/2023 01/10/2023 INFLUENZA VACCINE (#1) 2023 , 03/22/2022, 04/13/2021, Additional history exists COVID-19 Vaccine (4 - 2023-2 5 season) 2024 05/08/2021, 08/19/2020, 07/23/2020 [place]) Preventative Visit/Annual Wellness Visit 05/22/2024 PNEUMOCOCCAL VACCINE 50+ YEARS Completed 05/06/[address] [place] [address] [place] [id number] [place] Care Teams Wildland Fire Fighter Relationship Specialty Start Date End Date Clara Barber MD PCP - General Internal Medicine 11/01/23
--- OUTSIDE RECORDS SUMMARY | 2024-08-17 10:23 | XMS_ITS | Encounter Summary ---
Author Organization [employer] , [facility] Address [address] [place] [phone] Phone Care Team Providers Care Client Experience Specialist Name Role Phone Vanna Dave Primary Care Provider Unava ilable Reason for Visit * Reason Comments Med Refill Encounter Details Date Type Department Care Team (Late st Contact Info) Description 09/02/2021 Refill [place] [facility], [address] [phone] João [place] [address] [place] [phone] Social History Tobacco Use Types Packs/Day [...] on filedocumented in this encounter Care Teams Client Experience Specialist Relationship Specialty Start Date End Date Vanna Daev FNP-C PCP - General Nurse Practitioner 02/07/22 documented as of this encounter
--- OUTSIDE RECORDS SUMMARY | 2024-08-17 10:23 | XMS_ITS ---
Author Organization [facility] Address [address] [place] [address] Care Team Providers Care Five Piece Expansion Maker Hand Name Role Phone Shubham Del Valle Unavailable [phone] Encounters Encounter Location Date Provider Diagnosis [place] [facility] [address] [facility] [address] [phone] 07/19/2024 Shubham Del Valle PLAN OF TREATMENT No Information Progress Notes * MARCY BARKEROB:[birth year] (69 yo F)Acc No.[id number]:07/19/2024 Progress Notes Patient: BINA BARKER Provider: MD GERARDO, Vince.Avery.C.P, F.A.S.N. :1955 Age:68 Y Sex:Female Date:07/19/2024 Address:[address] [place] [address] Subjective: * Chief Complaints: * * Medical History: Objective: Assessment: Plan: * Treatment: * Billing Information: * Visit Code: * Procedure Codes: * Sign off status: Pending * Provider: MD GERARDO, Vince.Avery.C.P, F.A.S.N. Date: 07/19/2024
--- OUTSIDE RECORDS SUMMARY | 2024-08-17 10:23 | XMS_ITS | Encounter Summary ---
Author Organization [employer] , [facility] Address [address] [place] [phone] Phone Care Team Providers Care Banquet Supervisor Name Role Phone Vanna Dave Primary Care Provider Unava ilable Reason for Visit * Reason Comments Med Refill Encounter Details Date Type Department Care Team (Late st Contact Info) Description 07/31/2021 Refill [facility] [employer] [facility] [place], [address] [phone] [place]ão [place] [address] [place] [phone] Social History Tobacco Use Types Packs/Day [...] on filedocumented in this encounter Care Teams Banquet Supervisor Relationship Specialty Start Date End Date Vanna Dave FNP-C PCP - General Nurse Practitioner 02/07/22 documented as of this encounter
--- OUTSIDE RECORDS SUMMARY | 2024-08-17 10:23 | XMS_ITS | Patient Health Record ---
Author Organization [facility] Office Address [address] [facility] [facility] [address] [facility] [address] [place] [address] Care Team Providers Care Garbage Person Name Role Phone Eligio Shubham Unavailable [phone] REASON FOR REFERRAL No Information MEDICATIONS Medication SIG (Take, Route, Fr equency, Duration) Notes Start Date End Date Status Jardiance 10 MG TAKE 1 TABLET BY REESE TH EVERY DAY for 90 Active Calcitriol 0.25 MCG TAKE 1 CAPSULE BY MO UTH EVERY DAY FOR 90 DAYS for 90 Active PROBLEMS Problem Type ICD Code Onset Dates Problem Status W/U Status Risk SNOMED Code Notes Problem Secondary hyperparathyroid ism, not elsewhere classified (E21.1) Active confirmed Secondary hyperparathyroidism (72073842) Problem Vitamin D deficiency, unspecified (E55.9) Active confirmed Vitamin D defic iency (63623889) Problem Essential (primary) hypertension (I10) Active confirmed Essential hypertension (22372651) Problem Chronic kidney disease, stage 2 (mild) (N18.2) Active confirmed Chronic kidne y disease stage 2 (881583545) Problem Renal osteodystrophy (N25.0) Active confirmed Renal osteodyst rophy (99006116) Problem Edema, unspecified (R60.9) Active confirmed Edema (35903695) Problem Type 2 diabetes mellitus without complications (E11.9) Active confirmed Type II diabete s mellitus without complication (862633173) Problem Chronic kidney disease, stage 3 unspecified (N18.30) Active confirmed Chronic kidney disease stage 3 (disorder) (383049994) Encounters Encounter Location Date Provider Diagnosis [facility] [address] [facility] [address] [place] [address] 09/20/2023 Shubham Del Valle Chronic kidney disea se, stage 3 unspecified N18.30 ; Essential (primary) hypertension I10 ; Edema, unspecified R60.9 ; Renal osteodystrophy N25.0 ; Secondary hyperparathyroidism, not elsewhere classified E21.1 and Vitamin D deficiency, unspecified E55.9 [facility] [address] [address] 02/07/2024 Shubham Del Valle Chronic kidney disea se, stage 2 (mild) N18.2 ; Hyperkalemia E87.5 ; Essential (primary) hypertension I10 ; Edema, unspecified R60.9 ; Renal osteodystrophy N25.0 ; Secondary hyperparathyroidism, not elsewhere classified E21.1 and Vitamin D deficiency, unspecified E55.9 [facility] [address] [place] [address] 04/10/2024 Shubham Del Valle [facility] [address] [place] [address] 05/08/2024 Shubham Del Valle Stage 3 chronic kidn ey disease N18.30 ; Type 2 diabetes mellitus without complications E11.9 ; Hypo-osmolality and hyponatremia E87.1 and Vitamin D deficiency, unspecified E55.9 [facility] [address] [place] [address] 07/17/2024 Shubham Del Valle [facility] [address] [address] 07/19/2024 Shubham [facility] [address] [place] [address] 09/20/2023 Shubham Del Valle ASSESSMENTS Encounter Date Diagnosis Assessment Notes Treatment Notes Treatment Clinical Notes Section Notes 09/20/2023 Chronic kidney disease, stage 3 unspecified (ICD-10 - N18.30) 02/07/2024 Chronic kidney disease, stage 2 (mild) (ICD-10 - N18.2) 05/08/2024 Type 2 diabetes mellitus without complications (ICD-10 - E11.9) 05/08/2024 Stage 3 chronic kidney disease (ICD-10 - N18.30) 05/08/2024 Hypo-osmolality and hyponatremia (ICD-10 - E87.1) 02/07/2024 Hyperkalemia (ICD-10 - E87.5) 09/20/2023 Essential (primary) hypertension (ICD-10 - I10) 02/07/2024 Essential (primary) hypertension (ICD-10 - I10) 05/08/2024 Vitamin D deficiency, unspecified (ICD-10 - E55.9) 09/20/2023 Edema, unspecified (ICD-10 - R60.9) 02/07/2024 Edema, unspecified (ICD-10 - R60.9) 09/20/2023 Renal osteodystrophy (ICD-10 - N25.0) 09/20/2023 Secondary hyperparathyroidism , not elsewhere classified (ICD-10 - E21.1) 02/07/2024 Renal osteodystrophy (ICD-10 - N25.0) 09/20/2023 Vitamin D deficiency, unspecified (ICD-10 - E55.9) 02/07/2024 Secondary hyperparathyroidism , not elsewhere classified (ICD-10 - E21.1) 02/07/2024 Vitamin D deficiency, unspecified (ICD-10 - E55.9) PLAN OF TREATMENT No Information
--- OUTSIDE RECORDS SUMMARY | 2024-08-17 10:23 | XMS_ITS | Data Portability ---
Author Organization [place] [facility], Main Office Address [address] [place] [address] Care Team Providers Care Hydro Mechanic Name Role Phone DORIANROSANGELATERENCE Stapleton Primary Care Provider [phone] CHRISTINE BARRIOS Insolvency Consultant GABY STOUT Associate Professor Of Surgery [phone] Assessment Encounter Date Assessment Date Assessment LastModified by Organization Details LastModified Time 07/31/2023 07/31/2023 Assessment: Nicotine smoke: 1.5 ppd 1975-present (quit 2 years in between) 69 pack years Cough Dyspnea 4 mm LLL nodule Plan: The following were reviewed and explained to the patient: primary care/referral note Chest CT 06/14/23 4 mm LLL nodule Nicotine cessation counseling provided for 4 minutes. [place] for quitting nicotine include getting ready, getting support and encouragement, learning new skills and behaviors and being prepared to handle slips. Tips for dealing with cravings provided. Prevention of subsequent illnesses from nicotine addiction discussed. Comorbidities include but are not limited to hypertension, cerebrovascular disease, coronary heart disease, congestive heart failure, hyperlipidemia, COPD/asthma, peptic ulcer disease, esophagitis/gastri tis, and osteoporosis. Therapy options offered include: Quitting by total abstinence Receiving nicotine replacement therapy Undergoing hypnosis Filling a bupropion or varenicline prescription Enrolling in Quit For Life program Registering at [email or web address] Making a call to 8-061-XPQJ-NOW ( ). A strong, clear, personalized message was given to the patient to quit smoking. The patient was urged to set a quit date. We discussed patient's barriers to quitting and I will be of assistance when patient is ready to quit. I encouraged patient to inform friends and family of plans to quit with a request for support. I encouraged the patient to remove all cigarettes from the environment. We reviewed any previous quit attempts and lessons learned from them. I encouraged total abstinence from smoking and advised the patient that drinking alcohol and/or associating with other smokers are associated with failure or relapse. Patient can enroll in [facility]'s smoking cessation class through Ruby Gallegos RN at . Enrollment is free and classes are held every monday of the month from 1:30 pm to 2:30 pm at the conference room next to the cafeteria on the ground floor. Differential diagnoses for pulmonary nodule: 1. malignant tumor 2. benign tumor 3. inflammatory processes 4. infectious process (viral, atypical bacterial, fungal, atypical mycobacterial) The Fleischner Society pulmonary nodule recommendations below pertain to the follow-up and management of indeterminate pulmonary nodules detected incidentally on CT and are published by the Fleischner Society. The guideline does not apply to lung cancer screening, patients younger than 35 years, or patients with a history of primary cancer or immunosuppression. These recommendations reflect the 2017 revision 4, which supersedes prior versions published in 2005 and 2013. Single solid nodule <6 mm (<100 mm3) *low-risk patients: no routine follow-up required *high-risk patients: optional CT at 12 months (particularly with suspicious nodule morphology and/or upper lobe location) Single solid nodule 6-8 mm (100-250 mm3) *low-risk patients: CT at 6-12 months, then consider CT at 18-24 months *high-risk patients: CT at 6-12 months, then CT at 18-24 months Single solid nodule >8 mm (>250 mm3) *low-risk and high-risk patients: consider CT at 3 months, PET/CT, or tissue sampling Repeat chest CT 05/2024. Cough/Dyspnea workup will be done as follows: Respiratory allergen panel for [facility] Serum IgE Serum total IgG, IgG1, IgG2, IgG3, IgG4 Fregi-4-mjszluckep n phenotype and level TB stimulated gamma interferon B-type natriuretic peptide (BNP) Eosinophil count Complete pulmonary function testing (PFT) Adherence to therapy is advocated. Nonadherence may lead to treatment failure, further progression of the condition, and other complications. Hospitals admissions are often the result of individuals not taking prescription medications accurately. Alternatively, greater adherence to medication regimens have shown to lower rates of hospitalization and decrease total medical costs in patients with chronic medical conditions. Advocated influenza vaccination annually and pneumonia vaccination TISHA. Encouraged patient to adjust caloric intake to maintain/achieve ideal body weight, emphasizing on fruits, vegetables, whole grains, and fat-free or low-fat products. These include lean meats, poultry, fish, beans, eggs, and nuts and foods that are low in saturated fats, trans-fats, cholesterol, salt (sodium), and glycemic index. Stressed the importance of regular exercise up to the patient's capacity limits. In this case, we recommend 20 min daily walking, 2 days a week of resistance training. Patient to monitor BP daily and bring records to PCP for further management. Follow-up: 1 week after PFT [email or web address] Not available 07/31/2023 11:48:43 10/12/2023 10/12/2023 07/05/2023: A1C 5.8 B12 218 FT4 0.75L K 5.2 TG 161 Urine micro alb 34.4 PLT 548 07/31/2023: HGB 11.9, PLT 714 K 5.2, ALP 136 B12 225 08/28/2023: Hepatitis panel/GGT 17 FT4 0.62 45 minutes spent with the patient and her daughter, reviewed labs, and consult notes [email or web address] Not available 10/12/2023 16:12:19 02/15/2024 02/15/2024 07/05/2023: A1C 5.8 B12 218 FT4 0.75L K 5.2 TG 161 Urine micro alb 34.4 PLT 548 07/31/2023: HGB 11.9, PLT 714 K 5.2, ALP 136 B12 225 08/28/2023: Hepatitis panel/GGT 17 FT4 0.62 [email or web address] Not available 02/15/2024 15:18:22 06/13/2024 06/13/2024 07/05/2023: A1C 5.8 B12 218 FT4 0.75L K 5.2 TG 161 Urine micro alb 34.4 PLT 548 07/31/2023: HGB 11.9, PLT 714 K 5.2, ALP 136 B12 225 08/28/2023: Hepatitis panel/GGT 17 FT4 0.62 : A1C 7.4 Urine micro alb 28.6 Gluc 125, GFR 47 TG 199 WBC 11.3, PLT 450 05/01/2024: Dr Del Valle IJ Gluc 147 A1C 8.4 PLT 511 Addendum: 06/13/2023: Gluc 132 Cr 1.08, GFR 56 A1C 8.5 PLT 411 [email or web address] Not available 06/13/2024 18:28:22 Plan of Treatment Reminders Order Date Submit Date Provider Last Modified By Organization Details Last Modified Time Details Appointments Any 15 2024 10:15A M Terence bishop MD Not available Not available Not available Lab CBC w/ auto diff [address] (Lab), [address] [place], [address], 06/13/2024 16:26:53 lipid panel, serum [address] (Lab), [address] [place], [address], 06/13/2024 16:26:51 CBC w/ auto diff [address] (Lab), [address] [place], [address], 06/13/2024 16:26:52 CMP, serum or plasma [address] (Lab), [address] [place], [address], 06/13/2024 16:26:52 TSH, serum or plasma [address] (Lab), [address] [place], [address], 06/13/2024 16:26:54 vitamin D, 25-hydrox y, total, serum [address] (Lab), [address] [place], [address], 06/13/2024 16:26:53 glycohemo globin, total, blood [address] (Lab), [address] [place], [address], 06/13/2024 16:26:50 microalbu min, urine [address] (Lab), [address] [place], [address], 07/11/2024 14:20:46 T4, free, serum [address] (Lab), [address] [place], [address], 06/13/2024 16:26:54 TSH, serum or plasma [address] (Lab), [address] [place], [address], 06/13/2024 16:26:54 vitamin B12 + folate, serum or blood [address] (Lab), [address] [place], [address], 06/13/2024 16:26:53 CBC w/ auto diff 2023 024 [facility] (Lab), [address] [place], [address], 02/19/2024 11:36:51 lipid panel, serum 2023 024 [facility] (Lab), [address] [place], [address], 02/19/2024 12:03:05 CBC w/ auto diff [address] (Lab), [address] [place], [address], 08/14/2024 08:48:30 CMP, serum or plasma 2023 024 [facility] (Lab), [address] [place], [address], 02/19/2024 12:03:10 TSH, serum or plasma [address] (Lab), [address] [place], [address], 08/14/2024 08:48:30 vitamin D, 25-hydrox y, total, serum [address] (Lab), [address] [place], [address], 08/14/2024 08:48:30 glycohemo globin, total, blood 2023 024 [facility] (Lab), [address] [place], [address], 02/19/2024 15:16:55 microalbu min, urine 2023 024 [facility] (Lab), [address] [place], [address], 02/19/2024 12:25:51 T4, free, serum 2023 024 [facility] (Lab), [address] [place], [address], 02/19/2024 12:21:33 TSH, serum or plasma 2023 024 [facility] (Lab), [address] [place], [address], 02/19/2024 12:33:09 vitamin B12 + folate, serum or blood [address] (Lab), [address] [place], [address], 08/14/2024 08:48:30 CBC w/ auto diff 2023 024 [facility] (Lab), [address] [place], [address], 10/13/2023 11:48:46 potassium , serum or plasma [address] (Lab), [address] [place], [address], 04/16/2024 08:46:59 lipid panel, serum 2023 024 [facility] (Lab), [address] [place], [address], 10/13/2023 11:01:56 CBC w/ auto diff [address] (Lab), [address] [place], [address], 04/16/2024 08:46:59 CMP, serum or plasma 2023 024 [facility] (Lab), [address] [place], [address], 10/13/2023 11:02:22 TSH, serum or plasma [address] (Lab), [address] [place], [address], 04/16/2024 08:46:59 vitamin D, 25-hydrox y, total, serum [address] (Lab), [address] [place], [address], 04/16/2024 08:46:59 glycohemo globin, total, blood 2023 024 [facility] (Lab), [address] [place], [address], 10/13/2023 11:59:58 microalbu min, urine 2023 024 [facility] (Lab), [address] [place], [address], 10/13/2023 11:26:11 T4, free, serum 2023 024 [facility] (Lab), [address] [place], [address], 10/13/2023 11:17:29 TSH, serum or plasma 2023 024 [facility] (Lab), [address] [place], [address], 10/13/2023 11:44:05 vitamin B12 + folate, serum or blood [address] (Lab), [address] [place], [address], 04/16/2024 08:46:59 alpha-1-a ntitrypsi n (aat) phenotype , serum 2023 024 [facility] (Lab), [address] [place], [address], 08/08/2023 15:53:10 BNP (B-type natriuret ic peptide), serum or plasma 2023 024 [facility] (Lab), [address] [place], [address], 07/31/2023 14:49:32 ige, total, serum 2023 024 [email or web address] 5 [facility] (Lab), [address] [place], [address], 10/03/2023 12:37:38 tb (M tuberculo sis), ifn-gamma ivonne, blood 2023 024 [email or web address] 5 [facility] (Lab), [address] [place], [address], 10/03/2023 12:37:38 eosinophi l count, manual, blood (OBS) 2023 024 [email or web address] 5 [facility] (Lab), [address] [place], [address], 10/03/2023 12:37:38 igg subclasse s 1+2+3+4, serum 2023 024 [email or web address] 5 [facility] (Lab), [address] [place], [address], 10/03/2023 12:37:38 respirato ry allergen panel - [facility] a 2023 024 [email or web address] 5 [facility] (Lab), [address] [place], [address], 10/03/2023 12:37:38 respirato ry allergen panel - [facility] b 2023 [email or web address] [place] [address] (Lab), [address] [place], [address], 10/03/2023 12:37:39 Referral hematolog ist referral - Please call patient to schedule an appointme nt. Thank you. 2024 025 Tommie Williamson MD, [address], [place], [address], 08/07/2024 08:46:15 gynecolog ist referral - Please call patient to schedule an appointme nt. Thank you. 2024 025 JOHANA Olivarez, [address] [facility], [address], [place], [address], Ph [phone] 07/23/2024 11:15:41 nephrolog ist referral - Please call patient to schedule an appointme nt. Thank you. 2024 025 JOHAAN Del Valle MD (Nephrology, [address], [address], [place], [address], 07/23/2024 11:17:51 pulmonolo gist referral - Please call patient to schedule an appointme nt. Thank you. 2024 025 [email or web address] Christine Barrios MD, [address] [facility], [place], [address], 07/23/2024 10:46:35 cardiolog ist referral - Please call patient to schedule an appointme nt. Thank you. 2024 025 JOHANA Graf MD, [address] [facility], [address], [place], [address], 07/23/2024 11:46:50 podiatris t referral - Please call patient to schedule an appointme nt. Thank you. 2024 025 CHITO Dupont DPPatrick, [address] [facility], [address], [place], [address], 07/23/2024 11:17:30 gynecolog ist referral - Please call patient to schedule. 2023 024 [email or web address] Olivarez, [address] [facility], [address], [place], [address], Ph [phone] 03/21/2024 08:09:33 nephrolog ist referral 2023 024 [email or web address] Shubham Del Valle MD (Nephrology, [address], [address], [place], [address], 02/19/2024 16:05:34 pulmonolo gist referral 2023 024 Christine Barrios MD, [address] [facility], [place], [address], 02/19/2024 16:05:34 cardiolog ist referral 2023 024 [email or web address] Carlos Alberto Graf MD, [address] [facility], [address], [place], [address], 02/19/2024 16:05:33 podiatris t referral - Please call patient to schedule. 2023 024 [email or web address] Bolivar Dupont DPM, [address] [facility], [address], [place], [address], 03/21/2024 08:09:19 ENT surgery referral 2023 024 [email or web address] Gaby Stout MD, [address], [place], [address], 05/07/2024 15:58:00 gynecolog ist referral 2023 024 [email or web address] Radha Olivarez, [address] [facility], [address], [place], [address], Ph [phone] 04/16/2024 08:47:10 nephrolog ist referral 2023 024 [email or web address] João [place], [address], [address], [place], [address], 11/09/2023 12:53:39 pulmonolo gist referral 2023 024 [email or web address] Christine Barrios MD, [address] [place], [address], 11/09/2023 12:53:16 cardiolog ist referral 2023 024 [email or web address] Carlos Alberto Graf MD, [address], [address], [place], [address], 04/16/2024 08:47:11 podiatris t referral 2023 024 [email or web address] Bolivar Dupont DPM, [address] [facility], [address], [place], [address], 04/16/2024 08:47:12 Procedures colonosco py screening (PROC) - Please call patient to schedule an appointme nt. Thank you. 2024 025 [email or web address] Martinez MD, [address], [address], [place], [address], 07/23/2024 10:32:00 upper endoscopy procedure (EGD) (PROC) - Please call patient to schedule an appointme nt. Thank you. 2024 025 [email or web address] Martinez MD, [address], [address], [place], [address], 07/23/2024 10:40:58 colonosco py screening (PROC) - Please call patient to schedule. 2023 024 astrid Martinez MD, [address], [address], [place], [address], 03/21/2024 08:08:49 upper endoscopy procedure (EGD) (PROC) - Please call patient to schedule. 2023 024 astrid Martinez MD, [address], [address], [place], [address], 03/21/2024 08:08:36 colonosco py screening (PROC) 2023 024 astrid Villalta MD, [address], [address], [place], [address], 04/16/2024 08:46:25 upper endoscopy procedure (EGD) (PROC) 2023 024 [email or web address] Sixto Villalta MD, [address], [address], [place], [address], 04/16/2024 08:46:24 Surgeries None recorded. Imaging MAMMO, screening , digital, bilateral - Please call patient to schedule. 2024 025 ATHENAX [facility], [address], [address], [place], [address], 06/17/2024 13:25:25 LDCT, chest, for lung cancer screening - Please call patient to schedule. [email or web address] [place] [address] Imaging, [address], [address], [place], [address], 06/24/2024 10:13:32 DEXA, axial skeleton [email or web address] [place] [address] Imaging, [address], [address], [place], [address], 07/23/2024 14:18:35 DEXA, axial skeleton 2023 024 [email or web address] [facility] ([facility]), [address] [facility], [place], [address], 02/29/2024 14:58:44 Medication Orders lisinopri l 2.5 mg tablet 2024 025 [facility]/Pharmacy #[id number], [address], [place], [address], 06/13/2024 16:25:36 lisinopri l 2.5 mg tablet [email or web address]/Pharmacy #[id number], [address] , [place], [address], 06/13/2024 15:43:05 Patient TargetsNo targets recorded. Patient Instructions Encounter Date Encounter Id Patient Instructions Last Modified By Organization Details Last Modified Time 07/31/2023 [id number] complete PFT w/ post bronchodilator spirometry* [email or web address] Not available 09/28/2023 14:32:59 10/12/2023 [id number] dementia rating scale-2* Not available 10/12/2023 16:17:33 depression screening* [email or web address] Not available 10/12/2023 16:17:16 alcohol misuse* [email or web address] Not available 10/12/2023 16:16:59 multi-dimensiona l health assessment questionnaire* [email or web address] Not available 10/12/2023 16:33:32 advance directiv es: care instructions [email or web address] 2 Not available 10/12/2023 16:33:32 advance care planning: care instructions [email or web address] 2 Not available 10/12/2023 16:33:32 [place] Advance Directives [email or web address] 2 Not available 10/12/2023 16:33:32 diabetic eye exam* [email or web address] Not availa ble 04/16/2024 08:46:33 Personalized a lt Plan and Screening Recommendations Advance Directives - Do you have one? No You have indicated that you are capable of preparing your advance care directive Advance Directives - Do we have your advance directive on file in your health record? Primary Prevention/Interven tion (prevents or decreases the chance of common diseases from occurring) Smoking Risk: Smoker Refer to attached smoking cessation handouts Alcohol Misuse Screening: Negative Weight: Appropriate Physical activity: Need more exercise/physical activity decrease sitting time to no more than 5hr/day Nutrition: Good Average Refer to attached handout Heart-Healthy Diet: After Your Visit Fall Risk (screened today): Low Refer to attached handout Preventing Falls: After your Visit Vaccines Pneumococcal: Ordered Recommended today Influenza: Your next one in the fall of this year Chronic Disease Risks Stroke: High Risk I have no recommendations Act yuliana diagnosis, Continue current treatment plan Heart Attack: Low risk Intermediate Risk I have no recommendations Clogging of the Arteries: High risk I have no recommendations Act yuliana diagnosis, Continue current treatment plan Diabetes: High Risk Active diagnosis, Continue current treatment plan Secondary Prevention/Interven tion (detects treatable diseases before they may cause symptoms, disability, or ) Breast Cancer Screening with mammogram: Cervical/Uterine/Ov moise Cancer Screening: Your next PAP/pelvic in: Referral to [facility] Osteoporosis Screening: Your next DEXA in: Ordered Date Screening Last Performed: 09/28/2021 Colon Cancer Screening: Colonoscopy Referral done Eye Disease Screening: Ordered Recommended today Dementia Risk: Low Intermediate I have no recommendations Depression Screening: Negative [email or web address] Not available 10/12/2023 16:20:15 06/13/2024 [id number] diabetic eye exam* [email or web address] Not avail able 06/13/2024 16:26:55 Reason for Referral Flue Tile Press Operator Referral for Gy necologic examination Referring Physician: Petrona Brandt Medicine, Encounter Date: 10/12/2023 Locker Room Attendant Referral for Co ronary arteriosclerosis Referring Physician: Petrona Brandt, Encounter Date: 10/12/2023 Insolvency Consultant Referral for C hronic obstructive pulmonary disease Referring Physician: Petrona Brandt, Encounter Date: 10/12/2023 Amalgamator Referral for Type 2 diabetes mellitus without complication Referring Physician: Petrona Bradnt, Encounter Date: 10/12/2023 Vehicle Safety Inspector Referral for Pr oteinuria Referring Physician: Petrona Brandt, Encounter Date: 10/12/2023 ENT Surgery Referral for Thy roid nodule Referring Physician: Petrona Brandt, Encounter Date: 10/12/2023 Flue Tile Press Operator Referral for Gy necologic examination Please call patient to schedule. Referring Physician: Petrona Brandt, Encounter Date: 02/15/2024 Locker Room Attendant Referral for Co ronary arteriosclerosis Referring Physician: Petrona Brandt, Encounter Date: 02/15/2024 Insolvency Consultant Referral for C hronic obstructive pulmonary disease Referring Physician: Terence Barber Internal Medicine, Encounter Date: 02/15/2024 Amalgamator Referral for Type 2 diabetes mellitus without complication Please call patient to schedule. Referring Physician: Petrona Brandt Medicine, Encounter Date: 02/15/2024 Vehicle Safety Inspector Referral for Pr oteinuria Referring Physician: Terence Barber Internal Medicine, Encounter Date: 02/15/2024 Flue Tile Press Operator Referral for Gy necologic examination Please call patient to schedule an appointment. Thank you. Referring Physician: Terence Barber [facility], Encounter Date: 06/13/2024 Locker Room Attendant Referral for Co ronary arteriosclerosis Please call patient to schedule an appointment. Thank you. Referring Physician: Petrona Brandt [facility], Encounter Date: 06/13/2024 Insolvency Consultant Referral for C hronic obstructive pulmonary disease Please call patient to schedule an appointment. Thank you. Referring Physician: Terence Barber [facility], Encounter Date: 06/13/2024 Amalgamator Referral for Type 2 diabetes mellitus without complication Please call patient to schedule an appointment. Thank you. Referring Physician: Petrona Brandt [facility], Encounter Date: 06/13/2024 Vehicle Safety Inspector Referral for Pr oteinuria Please call patient to schedule an appointment. Thank you. Referring Physician: Petrona Brandt Medicine, Encounter Date: 06/13/2024 Please call patient to sched ule an appointment. Thank you. Referring Physician: Terence Barber [facility], Encounter Date: 06/13/2024 Results Created Date Observation Date Name Description Value Unit Range Abnormal Flag Note LastModifiedBy Organization Detail LastModifiedTime 11/07/19 24 11/07/2023 COLOG UARD cologuard result Cancel led - Order d not applic able Not Available [facility] (Cologuard Orders Only) [address], [place], [address], 11/07/2023 12:05:14 07/05/19 24 07/05/2023 CBC/C OMPLE TE BLD COUNT W/DIF F white blood cells 9.9 x10'3 /uL 4.2-10 .8 Not Available [facility] (Lab) [address] [place], [address], 07/05/2023 12:30:07 07/05/19 24 07/05/2023 CBC/C OMPLE TE BLD COUNT W/DIF F red blood cells 4.07 x10'6 /uL 3.80-5 .20 Not Available [facility] (Lab) [address] [place], [address], 07/05/2023 12:30:07 07/05/19 24 07/05/2023 CBC/C OMPLE TE BLD COUNT W/DIF F hemoglobin 12.2 g/dL 12.0-1 5.6 Not Available [facility] (Lab) [address] [place], [address], 07/05/2023 12:30:07 07/05/19 24 07/05/2023 CBC/C OMPLE TE BLD COUNT W/DIF F hematocrit 39.1 % 35.7-4 5.7 Not Available [facility] (Lab) [address] [place], [address], 07/05/2023 12:30:07 07/05/19 24 07/05/2023 CBC/C OMPLE TE BLD COUNT W/DIF F mean red cell volume 96.1 fL 82.0-9 9.0 Not Available [facility] (Lab) [address] [place], [address], 07/05/2023 12:30:07 07/05/19 24 07/05/2023 CBC/C OMPLE TE BLD COUNT W/DIF F mean red cell hemoglobin 30.0 pg 27.0-3 3.0 Not Available [facility] (Lab) [address] [place], [address], 07/05/2023 12:30:07 07/05/19 24 07/05/2023 CBC/C OMPLE TE BLD COUNT W/DIF F mean RBC HGB concentratio n 31.2 g/dL 31.0-3 6.0 Not Available [facility] (Lab) [address] [place], [address], 07/05/2023 12:30:07 07/05/19 24 07/05/2023 CBC/C OMPLE TE BLD COUNT W/DIF F red cell distribution width 16.3 % 11.8-1 5.5 high Not Available [facility] (Lab) [address] [place], [address], 07/05/2023 12:30:07 07/05/19 24 07/05/2023 CBC/C OMPLE TE BLD COUNT W/DIF F platelets 548 x10'3 /uL 150-40 0 high Not Available [facility] (Lab) [address] [place], [address], 07/05/2023 12:30:07 07/05/19 24 07/05/2023 CBC/C OMPLE TE BLD COUNT W/DIF F mean platelet volume 9.5 fL 9.0-12 .4 Not Available [facility] (Lab) [address] [place], [address], 07/05/2023 12:30:07 07/05/19 24 07/05/2023 CBC/C OMPLE TE BLD COUNT W/DIF F neutrophils 41.7 % 39.0-7 2.0 Not Available [facility] (Lab) [address] [place], [address], 07/05/2023 12:30:07 07/05/19 24 07/05/2023 CBC/C OMPLE TE BLD COUNT W/DIF F lymphocytes 45.8 % 16.0-4 7.0 Not Available [facility] (Lab) [address] [place], [address], 07/05/2023 12:30:07 07/05/19 24 07/05/2023 CBC/C OMPLE TE BLD COUNT W/DIF F monocytes 7.1 % 5.0-12 .0 Not Available [facility] (Lab) [address] [place], [address], 07/05/2023 12:30:07 07/05/19 24 07/05/2023 CBC/C OMPLE TE BLD COUNT W/DIF F eosinophils 4.3 % 1.0-7. 0 Not Available [facility] (Lab) [address] [place], [address], 07/05/2023 12:30:07 07/05/19 24 07/05/2023 CBC/C OMPLE TE BLD COUNT W/DIF F basophils 0.8 % 0.0-2. 0 Not Available [facility] (Lab) [address] [place], [address], 07/05/2023 12:30:07 07/05/19 24 07/05/2023 CBC/C OMPLE TE BLD COUNT W/DIF F immature granulocytes 0.3 % 0.00-0 .50 Not Available [facility] (Lab) [address] [place], [address], 07/05/2023 12:30:07 07/05/19 24 07/05/2023 CBC/C OMPLE TE BLD COUNT W/DIF F neutrophils, absolute count 4.13 x10'3 /uL 1.5-8. 0 Not Available [facility] (Lab) [address] [place], [address], 07/05/2023 12:30:07 07/05/19 24 07/05/2023 CBC/C OMPLE TE BLD COUNT W/DIF F lymphocytes, absolute count 4.53 x10'3 /uL 1.07-3 .43 high Not Available [facility] (Lab) [address] [place], [address], 07/05/2023 12:30:07 07/05/19 24 07/05/2023 CBC/C OMPLE TE BLD COUNT W/DIF F monocytes, absolute count 0.70 x10'3 /uL 0.29-0 .99 Not Available [facility] (Lab) [address] [place], [address], 07/05/2023 12:30:07 07/05/19 24 07/05/2023 CBC/C OMPLE TE BLD COUNT W/DIF F eosinophils, absolute count 0.43 x10'3 /uL 0.02-0 .53 Not Available [facility] (Lab) [address] [place], [address], 07/05/2023 12:30:07 07/05/19 24 07/05/2023 CBC/C OMPLE TE BLD COUNT W/DIF F basophils, absolute count 0.08 x10'3 /uL 0.01-0 .08 Not Available [facility] (Lab) [address] [place], [address], 07/05/2023 12:30:07 07/05/19 24 07/05/2023 CBC/C OMPLE TE BLD COUNT W/DIF F immature granulocytes ,absolute 0.03 x10'3 /uL 0.00-0 .05 Not Available [facility] (Lab) [address] [place], [address], 07/05/2023 12:30:07 07/05/19 24 07/05/2023 CBC/C OMPLE TE BLD COUNT W/DIF F nucleated red blood cells 0.0 % -0 Not Available [facility] (Lab) [address] [place], [address], 07/05/2023 12:30:07 07/05/19 24 07/05/2023 CBC/C OMPLE TE BLD COUNT W/DIF F NRBC# 0.00 x10'3 /uL Not Available [facility] (Lab) [address] [place], [address], 07/05/2023 12:30:07 07/05/19 24 07/05/2023 MICRO ALBUM IN RANDO M URINE microalbumin , urine 34.4 mg/L 0.0-16 .6 high Not Available [facility] (Lab) [address] [place], [address], 07/05/2023 12:49:11 07/05/19 24 07/05/2023 LIPID PANEL cholesterol 105 mg/dL 140-19 9 low NIH ALEKS NSUS RECOM MENDA TION FOR GLORIA STERO L: ADULT CHILD LOW RISK: <200 <170 BORDE RLINE : <200- 239 ----- HIGH RISK: >240 >200 Not Available [facility] (Lab) [address] [place], [address], 07/05/2023 12:53:20 07/05/19 24 07/05/2023 LIPID PANEL triglyceride s 161 mg/dL 0-150 high NIH ALEKS NSUS REPOR T RECOM MENDA TION FOR TRIGL YCERI WES: ADULT CHILD LOW RISK: <150 ----- BODER LINE: 150-1 99 ----- HIGH RISK: >200 ----- Not Available [facility] (Lab) [address] [place], [address], 07/05/2023 12:53:20 07/05/19 24 07/05/2023 LIPID PANEL HDL cholesterol 28 mg/dL 40- low Not Available [facility] (Lab) [address] [place], [address], 07/05/2023 12:53:20 02/14/20 24 07/05/2023 LIPID PANEL LDL cholesterol, calculated 45 mg/dL 0-130 NIH ALEKS NSUS REPOR T RECOM MENDA TIONS FOR LDL: ADULT CHILD LOW RISK <130 <110 (OPTI MAL LDL) <100 ----- BORDE RLINE : 130-1 59 ----- HIGH RISK: >160 >130 A TRIGL YCERI DE RESUL T >400 INVAL IDATE S THE CALCU LATIO N FOR LDL FRACT IONAT ION - THE LDL RESUL T WILL NOT BE REPOR MINESH. Not Available [facility] (Lab) [address] [place], [address], 07/05/2023 12:53:20 07/05/19 24 07/05/2023 COMPR EHENS YULIANA METAB OLIC PANEL sodium 139 mmol/ L 137-14 5 Not Available [facility] (Lab) [address] [place], [address], 07/05/2023 12:53:26 07/05/19 24 07/05/2023 COMPR EHENS YULIANA METAB OLIC PANEL potassium 5.2 mmol/ L 3.5-5. 1 high Not Available [facility] (Lab) [address] [place], [address], 07/05/2023 12:53:26 07/05/19 24 07/05/2023 COMPR EHENS YULIANA METAB OLIC PANEL chloride 111 mmol/ L 98-107 high Not Available [facility] (Lab) [address] [place], [address], 07/05/2023 12:53:26 07/05/19 24 07/05/2023 COMPR EHENS YULIANA METAB OLIC PANEL carbon dioxide 22 mmol/ L 22-30 Not Available [facility] (Lab) [address] [place], [address], 07/05/2023 12:53:26 07/05/19 24 07/05/2023 COMPR EHENS YULIANA METAB OLIC PANEL anion gap 11.2 mmol/ L 14-22 low Not Available [facility] (Lab) [address] [place], [address], 07/05/2023 12:53:26 07/05/19 24 07/05/2023 COMPR EHENS YULIANA METAB OLIC PANEL glucose 83 mg/dL 70-99 Not Available [facility] (Lab) [address] [place], [address], 07/05/2023 12:53:26 07/05/19 24 07/05/2023 COMPR EHENS YULIANA METAB OLIC PANEL BUN 22 mg/dL 8-19 high Not Available [facility] (Lab) [address] [place], [address], 07/05/2023 12:53:26 07/05/19 24 07/05/2023 COMPR EHENS YULIANA METAB OLIC PANEL creatinine 0.86 mg/dL 0.66-1 .25 Not Available [facility] (Lab) [address] [place], [address], 07/05/2023 12:53:26 07/05/19 24 07/05/2023 COMPR EHENS YULIANA METAB OLIC PANEL GFR >60 Refer ence Range : [place] GFR Healt hy Adult : >60 mL/mi n/1.7 3 m2 Chron ic Kidne y Disea se: 15-60 mL/mi n/1.7 3 m2 Kidne y Failu re: <15/m L/min /1.73 m2 www.n iddk. nih.g ov The MDRD study equat ion has not been valid ated in child tameak <18 years of age; pregn ant women ; the elder ly >85 years of age; or in some racia l or ethni c subgr oups, such as Hispa nics. Outsi de the valid ated tk eters , estim ated GFR is less accur ate, requi ring clini marian judgm ent on a case- by-ca se basis . Clini marian inter preta tion for other races and ages must be made by the clini billy. The MDRD study equat ion has not been valid ated for the evalu ation of serum creat inine relat ed to nutri hunter l statu s or medic ation usage . For perso ns <18 years of age, a pedia tric GFR calcu lator is avail able on the F websi te: https ://zoe w.piter grossy.o rg/pr ofess ional s/kdo qi/gf r_cal culat or Not Available [facility] (Lab) [address] [place], [address], 07/05/2023 12:53:26 07/05/19 24 07/05/2023 COMPR EHENS YULIANA METAB OLIC PANEL alkaline phosphatase 124 U/L 38-126 Not Available [facility] (Lab) [address] [place], [address], 07/05/2023 12:53:26 07/05/19 24 07/05/2023 COMPR EHENS YULIANA METAB OLIC PANEL alanine aminotransfe rase 28 U/L 0-35 Not Available [facility] (Lab) [address] [place], [address], 07/05/2023 12:53:26 07/05/19 24 07/05/2023 COMPR EHENS YULIANA METAB OLIC PANEL aspartate aminotransfe rase 35 U/L 15-37 Not Available [facility] (Lab) [address] [place], [address], 07/05/2023 12:53:26 07/05/19 24 07/05/2023 COMPR EHENS YULIANA METAB OLIC PANEL bilirubin, total 0.30 mg/dL 0.20-1 .30 Not Available [facility] (Lab) [address] [place], [address], 07/05/2023 12:53:26 07/05/19 24 07/05/2023 COMPR EHENS YULIANA METAB OLIC PANEL calcium 9.5 mg/dL 8.4-10 .2 Not Available [facility] (Lab) [address] [place], [address], 07/05/2023 12:53:26 07/05/19 24 07/05/2023 COMPR EHENS YULIANA METAB OLIC PANEL total protein 6.9 g/dL 6.3-8. 2 Not Available [facility] (Lab) [address] [place], [address], 07/05/2023 12:53:26 07/05/19 24 07/05/2023 COMPR EHENS YULIANA METAB OLIC PANEL albumin 3.9 g/dL 3.0-4. 4 Not Available [facility] (Lab) [address] [place], [address], 07/05/2023 12:53:26 07/05/19 24 07/05/2023 COMPR EHENS YULIANA METAB OLIC PANEL globulin 3.0 g/dL 2.6-4. 2 Not Available [facility] (Lab) [address] [place], [address], 07/05/2023 12:53:26 07/05/19 24 07/05/2023 COMPR EHENS YULIANA METAB OLIC PANEL A/G ratio 1.3 ratio 1.0-2. 0 Not Available [facility] (Lab) [address] [place], [address], 07/05/2023 12:53:26 07/05/19 24 07/05/2023 T4 FREE free T4 0.75 NG/dL 0.78-2 .19 low Not Available [facility] (Lab) [address] [place], [address], 07/05/2023 13:38:06 07/05/19 24 07/05/2023 VITAM IN D 25-HY DROXY vd25oh 74.9 NG/mL 30-100 Vitam in D Statu s: Defic ient: <20 ng/mL Insuf ficie nt: 20-29 ng/mL Suffi cient : 30-10 0 ng/mL Not Available [facility] (Lab) [address] [place], [address], 07/05/2023 13:38:26 07/05/19 24 07/05/2023 TSH thyroid-stim ulating hormone 1.140 uIU/m L 0.465- 4.680 Not Available [facility] (Lab) [address] [place], [address], 07/05/2023 13:40:48 07/05/19 24 07/05/2023 VITAM IN B12 (SCOOBY JOSE LUIS ) vb12 218 pg/mL 239-93 1 low Not Available [facility] (Lab) [address] [place], [address], 07/05/2023 13:49:16 07/05/19 24 07/05/2023 FOLAT E, SERUM /PLAS MA folate 7.22 NG/mL 2.76-2 0.0 Not Available [facility] (Lab) [address] [place], [address], 07/05/2023 13:49:17 07/05/19 24 07/05/2023 HEMOG LOBIN A1C HA1C 5.8 % 4.0-6. 0 Diabe dick Scree brennon Crite kena: <5.7% Consi stent with absen ce of diabe dick 5.7-6 .4% Consi stent with incre ased risk for diabe dick (pred iabet es) >OR=6 .5% Consi stent with diabe dick REFER ENCE: Diabe dick Care 2016, 39(Jones ppl.1 ):s13 -s22 Not Available [facility] (Lab) [address] [place], [address], 07/05/2023 13:55:01 07/31/19 24 07/31/2023 CBC/C OMPLE TE BLD COUNT W/DIF F white blood cells 9.7 x10'3 /uL 4.2-10 .8 Not Available [facility] (Lab) [address] [place], [address], 07/31/2023 13:40:10 07/31/19 24 07/31/2023 CBC/C OMPLE TE BLD COUNT W/DIF F red blood cells 3.95 x10'6 /uL 3.80-5 .20 Not Available [facility] (Lab) [address] [facility] [place], [address], 07/31/2023 13:40:10 07/31/19 24 07/31/2023 CBC/C OMPLE TE BLD COUNT W/DIF F hemoglobin 11.9 g/dL 12.0-1 5.6 low Not Available [facility] (Lab) [address] [place], [address], 07/31/2023 13:40:10 07/31/19 24 07/31/2023 CBC/C OMPLE TE BLD COUNT W/DIF F hematocrit 38.4 % 35.7-4 5.7 Not Available [facility] (Lab) [address] [place], [address], 07/31/2023 13:40:10 07/31/19 24 07/31/2023 CBC/C OMPLE TE BLD COUNT W/DIF F mean red cell volume 97.2 fL 82.0-9 9.0 Not Available [facility] (Lab) [address] [place], [address], 07/31/2023 13:40:10 07/31/19 24 07/31/2023 CBC/C OMPLE TE BLD COUNT W/DIF F mean red cell hemoglobin 30.1 pg 27.0-3 3.0 Not Available [facility] (Lab) [address] [place], [address], 07/31/2023 13:40:10 07/31/19 24 07/31/2023 CBC/C OMPLE TE BLD COUNT W/DIF F mean RBC HGB concentratio n 31.0 g/dL 31.0-3 6.0 Not Available [facility] (Lab) [address] [place], [address], 07/31/2023 13:40:10 07/31/19 24 07/31/2023 CBC/C OMPLE TE BLD COUNT W/DIF F red cell distribution width 15.4 % 11.8-1 5.5 Not Available [facility] (Lab) [address] [place], [address], 07/31/2023 13:40:10 07/31/19 24 07/31/2023 CBC/C OMPLE TE BLD COUNT W/DIF F platelets 714 x10'3 /uL 150-40 0 high Not Available [facility] (Lab) [address] [place], [address], 07/31/2023 13:40:10 07/31/19 24 07/31/2023 CBC/C OMPLE TE BLD COUNT W/DIF F mean platelet volume 9.7 fL 9.0-12 .4 Not Available [facility] (Lab) [address] [place], [address], 07/31/2023 13:40:10 07/31/19 24 07/31/2023 CBC/C OMPLE TE BLD COUNT W/DIF F neutrophils 50.6 % 39.0-7 2.0 Not Available [facility] (Lab) [address] [place], [address], 07/31/2023 13:40:10 07/31/19 24 07/31/2023 CBC/C OMPLE TE BLD COUNT W/DIF F lymphocytes 39.4 % 16.0-4 7.0 Not Available [facility] (Lab) [address] [place], [address], 07/31/2023 13:40:10 07/31/19 24 07/31/2023 CBC/C OMPLE TE BLD COUNT W/DIF F monocytes 6.5 % 5.0-12 .0 Not Available [facility] (Lab) [address] [place], [address], 07/31/2023 13:40:10 07/31/19 24 07/31/2023 CBC/C OMPLE TE BLD COUNT W/DIF F eosinophils 2.2 % 1.0-7. 0 Not Available [facility] (Lab) [address] [place], [address], 07/31/2023 13:40:10 07/31/19 24 07/31/2023 CBC/C OMPLE TE BLD COUNT W/DIF F basophils 0.8 % 0.0-2. 0 Not Available [facility] (Lab) [address] [place], [address], 07/31/2023 13:40:10 07/31/19 24 07/31/2023 CBC/C OMPLE TE BLD COUNT W/DIF F immature granulocytes 0.5 % 0.00-0 .50 Not Available [facility] (Lab) [address] [place], [address], 07/31/2023 13:40:10 07/31/19 24 07/31/2023 CBC/C OMPLE TE BLD COUNT W/DIF F neutrophils, absolute count 4.91 x10'3 /uL 1.5-8. 0 Not Available [facility] (Lab) [address] [place], [address], 07/31/2023 13:40:10 07/31/19 24 07/31/2023 CBC/C OMPLE TE BLD COUNT W/DIF F lymphocytes, absolute count 3.83 x10'3 /uL 1.07-3 .43 high Not Available [facility] (Lab) [address] [place], [address], 07/31/2023 13:40:10 07/31/19 24 07/31/2023 CBC/C OMPLE TE BLD COUNT W/DIF F monocytes, absolute count 0.63 x10'3 /uL 0.29-0 .99 Not Available [facility] (Lab) [address] [place], [address], 07/31/2023 13:40:10 07/31/19 24 07/31/2023 CBC/C OMPLE TE BLD COUNT W/DIF F eosinophils, absolute count 0.21 x10'3 /uL 0.02-0 .53 Not Available [facility] (Lab) [address] [place], [address], 07/31/2023 13:40:10 07/31/19 24 07/31/2023 CBC/C OMPLE TE BLD COUNT W/DIF F basophils, absolute count 0.08 x10'3 /uL 0.01-0 .08 Not Available [facility] (Lab) [address] [place], [address], 07/31/2023 13:40:10 07/31/19 24 07/31/2023 CBC/C OMPLE TE BLD COUNT W/DIF F immature granulocytes ,absolute 0.05 x10'3 /uL 0.00-0 .05 Not Available [facility] (Lab) [address] [place], [address], 07/31/2023 13:40:10 07/31/19 24 07/31/2023 CBC/C OMPLE TE BLD COUNT W/DIF F nucleated red blood cells 0.0 % -0 Not Available [facility] (Lab) [address] [place], [address], 07/31/2023 13:40:10 07/31/19 24 07/31/2023 CBC/C OMPLE TE BLD COUNT W/DIF F NRBC# 0.00 x10'3 /uL Not Available [facility] (Lab) [address] [place], [address], 07/31/2023 13:40:10 07/31/19 24 07/31/2023 MICRO ALBUM IN RANDO M URINE microalbumin , urine 55.4 mg/L 0.0-16 .6 high Not Available [facility] (Lab) [address] [place], [address], 07/31/2023 13:48:14 07/31/19 24 07/31/2023 LIPID PANEL cholesterol 117 mg/dL 140-19 9 low NIH ALEKS NSUS RECOM MENDA TION FOR GLORIA STERO L: ADULT CHILD LOW RISK: <200 <170 BORDE RLINE : <200- 239 ----- HIGH RISK: >240 >200 Not Available [facility] (Lab) [address] [place], [address], 07/31/2023 13:57:39 07/31/19 24 07/31/2023 LIPID PANEL triglyceride s 115 mg/dL 0-150 NIH ALEKS NSUS REPOR T RECOM MENDA TION FOR TRIGL YCERI WES: ADULT CHILD LOW RISK: <150 ----- BODER LINE: 150-1 99 ----- HIGH RISK: >200 ----- Not Available [facility] (Lab) [address] [place], [address], 07/31/2023 13:57:39 07/31/19 24 07/31/2023 LIPID PANEL HDL cholesterol 32 mg/dL 40- low Not Available [facility] (Lab) [address] [place], [address], 07/31/2023 13:57:39 07/31/19 24 07/31/2023 LIPID PANEL LDL cholesterol, calculated 62 mg/dL 0-130 NIH ALEKS NSUS REPOR T RECOM MENDA TIONS FOR LDL: ADULT CHILD LOW RISK <130 <110 (OPTI MAL LDL) <100 ----- BORDE RLINE : 130-1 59 ----- HIGH RISK: >160 >130 A TRIGL YCERI DE RESUL T >400 INVAL IDATE S THE CALCU LATIO N FOR LDL FRACT IONAT ION - THE LDL RESUL T WILL NOT BE REPOR MINESH. Not Available [facility] (Lab) [address] [place], [address], 07/31/2023 13:57:39 07/31/19 24 07/31/2023 COMPR EHENS YULIANA METAB OLIC PANEL sodium 139 mmol/ L 137-14 5 Not Available [facility] (Lab) [address] [place], [address], 07/31/2023 13:57:45 07/31/19 24 07/31/2023 COMPR EHENS YULIANA METAB OLIC PANEL potassium 5.2 mmol/ L 3.5-5. 1 high Not Available [facility] (Lab) [address] [place], [address], 07/31/2023 13:57:45 07/31/19 24 07/31/2023 COMPR EHENS YULIANA METAB OLIC PANEL chloride 113 mmol/ L 98-107 high Not Available [facility] (Lab) [address] [place], [address], 07/31/2023 13:57:45 07/31/19 24 07/31/2023 COMPR EHENS YULIANA METAB OLIC PANEL carbon dioxide 18 mmol/ L 22-30 low Not Available [facility] (Lab) [address] [place], [address], 07/31/2023 13:57:45 07/31/19 24 07/31/2023 COMPR EHENS YULIANA METAB OLIC PANEL anion gap 13.2 mmol/ L 14-22 low Not Available [facility] (Lab) [address] [place], [address], 07/31/2023 13:57:45 07/31/19 24 07/31/2023 COMPR EHENS YULIANA METAB OLIC PANEL glucose 92 mg/dL 70-99 Not Available [facility] (Lab) [address] [place], [address], 07/31/2023 13:57:45 07/31/19 24 07/31/2023 COMPR EHENS YULIANA METAB OLIC PANEL BUN 14 mg/dL 8-19 Not Available [facility] (Lab) [address] [place], [address], 07/31/2023 13:57:45 07/31/19 24 07/31/2023 COMPR EHENS YULIANA METAB OLIC PANEL creatinine 0.70 mg/dL 0.66-1 .25 Not Available [facility] (Lab) [address] [place], [address], 07/31/2023 13:57:45 07/31/19 24 07/31/2023 COMPR EHENS YULIANA METAB OLIC PANEL GFR >60 Refer ence Range : [place] GFR Healt hy Adult : >60 mL/mi n/1.7 3 m2 Chron ic Kidne y Disea se: 15-60 mL/mi n/1.7 3 m2 Kidne y Failu re: <15/m L/min /1.73 m2 www.n iddk. nih.g ov The MDRD study equat ion has not been valid ated in child tameka <18 years of age; pregn ant women ; the elder ly >85 years of age; or in some racia l or ethni c subgr oups, such as Hisva nics. Outsi de the valid ated tk eters , estim ated GFR is less accur ate, requi ring clini marian judgm ent on a case- by-ca se basis . Clini marian inter preta tion for other races and ages must be made by the clini billy. The MDRD study equat ion has not been valid ated for the evalu ation of serum creat inine relat ed to nutri hunter l statu s or medic ation usage . For perso ns <18 years of age, a pedia tric GFR calcu lator is avail able on the F websi te: https ://zoe mayorga.piter pinzon.o rg/pr ofess ional s/kdo qi/gf r_cal culat or Not Available [facility] (Lab) [address] [place], [address], 07/31/2023 13:57:45 07/31/19 24 07/31/2023 COMPR EHENS YULIANA METAB OLIC PANEL alkaline phosphatase 136 U/L 38-126 high Not Available [facility] (Lab) [address] [place], [address], 07/31/2023 13:57:45 07/31/19 24 07/31/2023 COMPR EHENS YULIANA METAB OLIC PANEL alanine aminotransfe rase 18 U/L 0-35 Not Available [facility] (Lab) [address] [place], [address], 07/31/2023 13:57:45 07/31/19 24 07/31/2023 COMPR EHENS YULIANA METAB OLIC PANEL aspartate aminotransfe rase 22 U/L 15-37 Not Available [facility] (Lab) [address] [place], [address], 07/31/2023 13:57:45 07/31/19 24 07/31/2023 COMPR EHENS YULIANA METAB OLIC PANEL bilirubin, total 0.30 mg/dL 0.20-1 .30 Not Available [facility] (Lab) [address] [place], [address], 07/31/2023 13:57:45 07/31/19 24 07/31/2023 COMPR EHENS YULIANA METAB OLIC PANEL calcium 9.9 mg/dL 8.4-10 .2 Not Available [facility] (Lab) [address] [place], [address], 07/31/2023 13:57:45 07/31/19 24 07/31/2023 COMPR EHENS YULIANA METAB OLIC PANEL total protein 7.1 g/dL 6.3-8. 2 Not Available [facility] (Lab) [address] [place], [address], 07/31/2023 13:57:45 07/31/19 24 07/31/2023 COMPR EHENS YULIANA METAB OLIC PANEL albumin 4.0 g/dL 3.0-4. 4 Not Available [facility] (Lab) [address] [place], [address], 07/31/2023 13:57:45 07/31/19 24 07/31/2023 COMPR EHENS YULIANA METAB OLIC PANEL globulin 3.1 g/dL 2.6-4. 2 Not Available [facility] (Lab) [address] [place], [address], 07/31/2023 13:57:45 07/31/19 24 07/31/2023 COMPR EHENS YULIANA METAB OLIC PANEL A/G ratio 1.3 ratio 1.0-2. 0 Not Available [facility] (Lab) [address] [place], [address], 07/31/2023 13:57:45 07/31/19 24 07/31/2023 T4 FREE free T4 0.72 NG/dL 0.78-2 .19 low Not Available [facility] (Lab) [address] [place], [address], 07/31/2023 14:08:33 07/31/19 24 07/31/2023 VITAM IN D 25-HY DROXY vd25oh 78.2 NG/mL 30-100 Vitam in D Statu s: Defic ient: <20 ng/mL Insuf ficie nt: 20-29 ng/mL Suffi cient : 30-10 0 ng/mL Not Available [facility] (Lab) [address] [place], [address], 07/31/2023 14:10:04 07/31/19 24 07/31/2023 TSH thyroid-stim ulating hormone 0.868 uIU/m L 0.465- 4.680 Not Available [facility] (Lab) [address] [place], [address], 07/31/2023 14:24:34 07/31/19 24 07/31/2023 HEMOG LOBIN A1C HA1C 5.8 % 4.0-6. 0 Diabe dick Scree brennon Crite kena: <5.7% Consi stent with absen ce of diabe dick 5.7-6 .4% Consi stent with incre ased risk for diabe dick (pred iabet es) >OR=6 .5% Consi stent with diabe dick REFER ENCE: Diabe dick Care 2016, 39(Jones ppl.1 ):s13 -s22 Not Available [facility] (Lab) [address] [place], [address], 07/31/2023 14:59:24 07/31/19 24 07/31/2023 VITAM IN B12 (SCOOBY JOSE LUIS ) vb12 225 pg/mL 239-93 1 low Not Available [facility] (Lab) [address] [place], [address], 07/31/2023 15:03:49 07/31/19 24 07/31/2023 FOLAT E, SERUM /PLAS MA folate 8.42 NG/mL 2.76-2 0.0 Not Available [facility] (Lab) [address] [place], [address], 07/31/2023 15:03:51 08/28/19 24 08/28/2023 T4 FREE free T4 0.62 NG/dL 0.78-2 .19 low Not Available [facility] (Lab) [address] [place], [address], 08/28/2023 12:07:05 08/28/19 24 08/28/2023 TSH thyroid-stim ulating hormone 0.967 uIU/m L 0.465- 4.680 Not Available [facility] (Lab) [address] [place], [address], 08/28/2023 12:25:29 08/28/19 24 08/28/2023 HEPAT ITIS ACUTE PANEL hepatitis A IgM antibody NON-RE ACTIVE non-re active For sampl es repor minesh as Borde rline React yuliana for HAV IgM, it is recom purvi d a new speci men be obtai vance in 2 weeks and retes minesh. Not Available [facility] (Lab) [address] [place], [address], 08/28/2023 16:11:39 08/28/19 24 08/28/2023 HEPAT ITIS ACUTE PANEL hepatitis A virus signal/cutof 0.03 0.00-0 .79 Not Available [facility] (Lab) [address] [place], [address], 08/28/2023 16:11:39 08/28/19 24 08/28/2023 HEPAT ITIS ACUTE PANEL hepatitis B core IgM antibody NON-RE ACTIVE non-re active Not Available [facility] (Lab) [address] [place], [address], 08/28/2023 16:11:39 08/28/19 24 08/28/2023 HEPAT ITIS ACUTE PANEL HBV core IgM signal/cutof f 0.03 0.00-1 .10 Not Available [facility] (Lab) [address] [place], [address], 08/28/2023 16:11:39 08/28/19 24 08/28/2023 HEPAT ITIS ACUTE PANEL hepatitis B surface antigen NON-RE ACTIVE non-re active All speci mens react yuliana for Hepat itis B Surfa ce Antig en will refle x to refer [facility] confi rmato ry testi ng. Not Available [facility] (Lab) [address] [place], [address], 08/28/2023 16:11:39 08/28/19 24 08/28/2023 HEPAT ITIS ACUTE PANEL HBV surf.antigen signal/cutof f 0.10 0.00-0 .99 Not Available [facility] (Lab) [address] [place], [address], 08/28/2023 16:11:39 08/28/19 24 08/28/2023 HEPAT ITIS ACUTE PANEL hepatitis C antibody NON-RE ACTIVE non-re active All speci mens react yuliana for Hepat itis C Virus antib eliel will refle x to PCR confi rmato ry testi ng. Pleas e allow 48-72 hours for resul ts. Not Available [facility] (Lab) [address] [place], [address], 08/28/2023 16:11:39 08/28/19 24 08/28/2023 HEPAT ITIS ACUTE PANEL hepatitis C virus signal/cutof 0.04 0.00-0 .99 Not Available [facility] (Lab) [address] [place], [address], 08/28/2023 16:11:39 08/28/19 24 08/28/2023 GGT/G -GLUT AMYL TRANS FERAS E gamma-glutam yl transferase 17 U/L 12-43 Not Available [facility] (Lab) [address] [place], [address], 08/28/2023 22:37:19 10/13/19 24 10/13/2023 LIPID PANEL cholesterol 145 mg/dL 140-19 9 [facility] ALEKS NSUS RECOM MENDA TION FOR GLORIA STERO L: ADULT CHILD LOW RISK: <200 <170 BORDE RLINE : <200- 239 ----- HIGH RISK: >240 >200 Not Available [facility] (Lab) [address] [place], [address], 10/13/2023 11:01:56 10/13/19 24 10/13/2023 LIPID PANEL triglyceride s 127 mg/dL 0-150 NIH ALEKS NSUS REPOR T RECOM MENDA TION FOR TRIGL YCERI WES: ADULT CHILD LOW RISK: <150 ----- BODER LINE: 150-1 99 ----- HIGH RISK: >200 ----- Not Available [facility] (Lab) [address] [place], [address], 10/13/2023 11:01:56 10/13/19 24 10/13/2023 LIPID PANEL HDL cholesterol 39 mg/dL 40- low Not Available [facility] (Lab) [address] [place], [address], 10/13/2023 11:01:56 10/13/19 24 10/13/2023 LIPID PANEL LDL cholesterol, calculated 81 mg/dL 0-130 NIH ALEKS NSUS REPOR T RECOM MENDA TIONS FOR LDL: ADULT CHILD LOW RISK <130 <110 (OPTI MAL LDL) <100 ----- BORDE RLINE : 130-1 59 ----- HIGH RISK: >160 >130 A TRIGL YCERI DE RESUL T >400 INVAL IDATE S THE CALCU LATIO N FOR LDL FRACT IONAT ION - THE LDL RESUL T WILL NOT BE REPOR MINESH. Not Available [facility] (Lab) [address] [place], [address], 10/13/2023 11:01:56 10/13/19 24 10/13/2023 COMPR EHENS YULIANA METAB OLIC PANEL sodium 140 mmol/ L 137-14 5 Not Available [facility] (Lab) [address] [place], [address], 10/13/2023 11:02:22 10/13/19 24 10/13/2023 COMPR EHENS YULIANA METAB OLIC PANEL potassium 5.1 mmol/ L 3.5-5. 1 Not Available [facility] (Lab) [address] [place], [address], 10/13/2023 11:02:22 10/13/19 24 10/13/2023 COMPR EHENS YULIANA METAB OLIC PANEL chloride 115 mmol/ L 98-107 high Not Available [facility] (Lab) [address] [place], [address], 10/13/2023 11:02:22 10/13/19 24 10/13/2023 COMPR EHENS YULIANA METAB OLIC PANEL carbon dioxide 19 mmol/ L 22-30 low Not Available [facility] (Lab) [address] [place], [address], 10/13/2023 11:02:22 10/13/19 24 10/13/2023 COMPR EHENS YULIANA METAB OLIC PANEL anion gap 11.1 mmol/ L 14-22 low Not Available [facility] (Lab) [address] [place], [address], 10/13/2023 11:02:22 10/13/19 24 10/13/2023 COMPR EHENS YULIANA METAB OLIC PANEL glucose 107 mg/dL 70-99 high Not Available [facility] (Lab) [address] [place], [address], 10/13/2023 11:02:22 10/13/19 24 10/13/2023 COMPR EHENS YULIANA METAB OLIC PANEL BUN 15 mg/dL 8-19 Not Available [facility] (Lab) [address] [place], [address], 10/13/2023 11:02:22 10/13/19 24 10/13/2023 COMPR EHENS YULIANA METAB OLIC PANEL creatinine 0.92 mg/dL 0.66-1 .25 Not Available [facility] (Lab) [address] [place], [address], 10/13/2023 11:02:22 10/13/19 24 10/13/2023 COMPR EHENS YULIANA METAB OLIC PANEL GFR >60 Refer ence Range : [place] GFR Healt hy Adult : >60 mL/mi n/1.7 3 m2 Chron ic Kidne y Disea se: 15-60 mL/mi n/1.7 3 m2 Kidne y Failu re: <15/m L/min /1.73 m2 www.n iddk. nih.g ov The MDRD study equat ion has not been valid ated in child tameka <18 years of age; pregn ant women ; the elder ly >85 years of age; or in some racia l or ethni c subgr oups, such as Hispa nics. Outsi de the valid ated tk eters , estim ated GFR is less accur ate, requi ring clini marian judgm ent on a case- by-ca se basis . Clini marian inter preta tion for other races and ages must be made by the clini billy. The MDRD study equat ion has not been valid ated for the evalu ation of serum creat inine relat ed to nutri hunter l statu s or medic ation usage . For perso ns <18 years of age, a pedia tric GFR calcu lator is avail able on the [facility] websi te: https ://zoe pinzon.mandie denton/pr ofess ional s/kdo qi/gf r_cal culat or Not Available [facility] (Lab) [address] [place], [address], 10/13/2023 11:02:22 10/13/19 24 10/13/2023 COMPR EHENS YULIANA METAB OLIC PANEL alkaline phosphatase 73 U/L 38-126 Not Available [facility] (Lab) [address] [place], [address], 10/13/2023 11:02:22 10/13/19 24 10/13/2023 COMPR EHENS YULIANA METAB OLIC PANEL alanine aminotransfe rase 17 U/L 0-35 Not Available [facility] (Lab) [address] [place], [address], 10/13/2023 11:02:22 10/13/19 24 10/13/2023 COMPR EHENS YULIANA METAB OLIC PANEL aspartate aminotransfe rase 22 U/L 15-37 Not Available [facility] (Lab) [address] [place], [address], 10/13/2023 11:02:22 10/13/19 24 10/13/2023 COMPR EHENS YULIANA METAB OLIC PANEL bilirubin, total 0.40 mg/dL 0.20-1 .30 Not Available [facility] (Lab) [address] [place], [address], 10/13/2023 11:02:22 10/13/19 24 10/13/2023 COMPR EHENS YULIANA METAB OLIC PANEL calcium 9.7 mg/dL 8.4-10 .2 Not Available [facility] (Lab) [address] [place], [address], 10/13/2023 11:02:22 10/13/19 24 10/13/2023 COMPR EHENS YULIANA METAB OLIC PANEL total protein 6.9 g/dL 6.3-8. 2 Not Available [facility] (Lab) [address] [place], [address], 10/13/2023 11:02:22 10/13/19 24 10/13/2023 COMPR EHENS YULIANA METAB OLIC PANEL albumin 4.2 g/dL 3.0-4. 4 Not Available [facility] (Lab) [address] [place], [address], 10/13/2023 11:02:22 10/13/19 24 10/13/2023 COMPR EHENS YULIANA METAB OLIC PANEL globulin 2.7 g/dL 2.6-4. 2 Not Available [facility] (Lab) [address] [place], [address], 10/13/2023 11:02:22 10/13/19 24 10/13/2023 COMPR EHENS YULIANA METAB OLIC PANEL A/G ratio 1.6 ratio 1.0-2. 0 Not Available [facility] (Lab) [address] [place], [address], 10/13/2023 11:02:22 10/13/19 24 10/13/2023 T4 FREE free T4 0.80 NG/dL 0.78-2 .19 Not Available [facility] (Lab) [address] [place], [address], 10/13/2023 11:17:29 10/13/19 24 10/13/2023 MICRO ALBUM IN RANDO M URINE microalbumin , urine 45.6 mg/L 0.0-16 .6 high Not Available [facility] (Lab) [address] [place], [address], 10/13/2023 11:26:10 10/13/19 24 10/13/2023 TSH thyroid-stim ulating hormone 1.200 uIU/m L 0.465- 4.680 Not Available [facility] (Lab) [address] [place], [address], 10/13/2023 11:44:04 10/13/19 24 10/13/2023 CBC/C OMPLE TE BLD COUNT W/DIF F white blood cells 8.4 x10'3 /uL 4.2-10 .8 Not Available [facility] (Lab) [address] [place], [address], 10/13/2023 11:48:46 10/13/19 24 10/13/2023 CBC/C OMPLE TE BLD COUNT W/DIF F red blood cells 4.37 x10'6 /uL 3.80-5 .20 Not Available [facility] (Lab) [address] [place], [address], 10/13/2023 11:48:46 10/13/19 24 10/13/2023 CBC/C OMPLE TE BLD COUNT W/DIF F hemoglobin 13.3 g/dL 12.0-1 5.6 Not Available [facility] (Lab) [address] [place], [address], 10/13/2023 11:48:46 10/13/19 24 10/13/2023 CBC/C OMPLE TE BLD COUNT W/DIF F hematocrit 41.8 % 35.7-4 5.7 Not Available [facility] (Lab) [address] [place], [address], 10/13/2023 11:48:46 10/13/19 24 10/13/2023 CBC/C OMPLE TE BLD COUNT W/DIF F mean red cell volume 95.7 fL 82.0-9 9.0 Not Available [facility] (Lab) [address] [place], [address], 10/13/2023 11:48:46 10/13/19 24 10/13/2023 CBC/C OMPLE TE BLD COUNT W/DIF F mean red cell hemoglobin 30.4 pg 27.0-3 3.0 Not Available [facility] (Lab) [address] [place], [address], 10/13/2023 11:48:46 10/13/19 24 10/13/2023 CBC/C OMPLE TE BLD COUNT W/DIF F mean RBC HGB concentratio n 31.8 g/dL 31.0-3 6.0 Not Available [facility] (Lab) [address] [place], [address], 10/13/2023 11:48:46 10/13/19 24 10/13/2023 CBC/C OMPLE TE BLD COUNT W/DIF F red cell distribution width 15.1 % 11.8-1 5.5 Not Available [facility] (Lab) [address] [place], [address], 10/13/2023 11:48:46 10/13/19 24 10/13/2023 CBC/C OMPLE TE BLD COUNT W/DIF F platelets 424 x10'3 /uL 150-40 0 high Not Available [facility] (Lab) [address] [place], [address], 10/13/2023 11:48:46 10/13/19 24 10/13/2023 CBC/C OMPLE TE BLD COUNT W/DIF F mean platelet volume 9.7 fL 9.0-12 .4 Not Available [facility] (Lab) [address] [place], [address], 10/13/2023 11:48:46 10/13/19 24 10/13/2023 CBC/C OMPLE TE BLD COUNT W/DIF F neutrophils 39.5 % 39.0-7 2.0 Not Available [facility] (Lab) [address] [place], [address], 10/13/2023 11:48:46 10/13/19 24 10/13/2023 CBC/C OMPLE TE BLD COUNT W/DIF F lymphocytes 48.4 % 16.0-4 7.0 high Not Available [facility] (Lab) [address] [place], [address], 10/13/2023 11:48:46 10/13/19 24 10/13/2023 CBC/C OMPLE TE BLD COUNT W/DIF F monocytes 8.4 % 5.0-12 .0 Not Available [facility] (Lab) [address] [place], [address], 10/13/2023 11:48:46 10/13/19 24 10/13/2023 CBC/C OMPLE TE BLD COUNT W/DIF F eosinophils 2.9 % 1.0-7. 0 Not Available [facility] (Lab) [address] [place], [address], 10/13/2023 11:48:46 10/13/19 24 10/13/2023 CBC/C OMPLE TE BLD COUNT W/DIF F basophils 0.6 % 0.0-2. 0 Not Available [facility] (Lab) [address] [place], [address], 10/13/2023 11:48:46 10/13/19 24 10/13/2023 CBC/C OMPLE TE BLD COUNT W/DIF F immature granulocytes 0.2 % 0.00-0 .50 Not Available [facility] (Lab) [address] [place], [address], 10/13/2023 11:48:46 10/13/19 24 10/13/2023 CBC/C OMPLE TE BLD COUNT W/DIF F neutrophils, absolute count 3.30 x10'3 /uL 1.5-8. 0 Not Available [facility] (Lab) [address] [place], [address], 10/13/2023 11:48:46 10/13/19 24 10/13/2023 CBC/C OMPLE TE BLD COUNT W/DIF F lymphocytes, absolute count 4.04 x10'3 /uL 1.07-3 .43 high Not Available [facility] (Lab) [address] [place], [address], 10/13/2023 11:48:46 10/13/19 24 10/13/2023 CBC/C OMPLE TE BLD COUNT W/DIF F monocytes, absolute count 0.70 x10'3 /uL 0.29-0 .99 Not Available [facility] (Lab) [address] [place], [address], 10/13/2023 11:48:46 10/13/19 24 10/13/2023 CBC/C OMPLE TE BLD COUNT W/DIF F eosinophils, absolute count 0.24 x10'3 /uL 0.02-0 .53 Not Available [facility] (Lab) [address] [place], [address], 10/13/2023 11:48:46 10/13/19 24 10/13/2023 CBC/C OMPLE TE BLD COUNT W/DIF F basophils, absolute count 0.05 x10'3 /uL 0.01-0 .08 Not Available [facility] (Lab) [address] [place], [address], 10/13/2023 11:48:46 10/13/19 24 10/13/2023 CBC/C OMPLE TE BLD COUNT W/DIF F immature granulocytes ,absolute 0.02 x10'3 /uL 0.00-0 .05 Not Available [facility] (Lab) [address] [place], [address], 10/13/2023 11:48:46 10/13/19 24 10/13/2023 CBC/C OMPLE TE BLD COUNT W/DIF F nucleated red blood cells 0.0 % -0 Not Available [facility] (Lab) [address] [place], [address], 10/13/2023 11:48:46 10/13/19 24 10/13/2023 CBC/C OMPLE TE BLD COUNT W/DIF F NRBC# 0.00 x10'3 /uL Not Available [facility] (Lab) [address] [place], [address], 10/13/2023 11:48:46 10/13/19 24 10/13/2023 HEMOG LOBIN A1C HA1C 6.4 % 4.0-6. 0 high Diabe dikc Scree brennon Crite kena: <5.7% Consi stent with absen ce of diabe dick 5.7-6 .4% Consi stent with incre ased risk for diabe dick (pred iabet es) >OR=6 .5% Consi stent with diabe dick REFER ENCE: Diabe dick Care 2016, 39(Jones ppl.1 ):s13 -s22 Not Available [facility] (Lab) [address] [place], [address], 10/13/2023 11:59:58 10/13/19 24 10/13/2023 VITAM IN D 25-HY DROXY vd25oh 65.2 NG/mL 30-100 Vitam in D Statu s: Defic ient: <20 ng/mL Insuf ficie nt: 20-29 ng/mL Suffi cient : 30-10 0 ng/mL Not Available [facility] (Lab) [address] [place], [address], 10/13/2023 13:22:31 10/13/19 24 10/13/2023 FOLAT E, SERUM /PLAS MA folate 8.91 NG/mL 2.76-2 0.0 Not Available [facility] (Lab) [address] [place], [address], 10/13/2023 13:44:45 10/13/19 24 10/13/2023 VITAM IN B12 (SCOOBY JOSE LUIS ) vb12 206 pg/mL 239-93 1 low Not Available [facility] (Lab) [address] [place], [address], 10/13/2023 13:44:49 02/19/20 24 02/19/2024 CBC/C OMPLE TE BLD COUNT W/DIF F white blood cells 11.3 x10'3 /uL 4.2-10 .8 high Not Available [facility] (Lab) [address] [place], [address], 02/19/2024 12:03:02 02/19/20 24 02/19/2024 CBC/C OMPLE TE BLD COUNT W/DIF F red blood cells 4.41 x10'6 /uL 3.80-5 .20 Not Available [facility] (Lab) [address] [place], [address], 02/19/2024 12:03:02 02/19/20 24 02/19/2024 CBC/C OMPLE TE BLD COUNT W/DIF F hemoglobin 13.8 g/dL 12.0-1 5.6 Not Available [facility] (Lab) [address] [place], [address], 02/19/2024 12:03:02 02/19/20 24 02/19/2024 CBC/C OMPLE TE BLD COUNT W/DIF F hematocrit 43.9 % 35.7-4 5.7 Not Available [facility] (Lab) [address] [place], [address], 02/19/2024 12:03:02 02/19/20 24 02/19/2024 CBC/C OMPLE TE BLD COUNT W/DIF F mean red cell volume 99.5 fL 82.0-9 9.0 high Not Available [facility] (Lab) [address] [place], [address], 02/19/2024 12:03:02 02/19/20 24 02/19/2024 CBC/C OMPLE TE BLD COUNT W/DIF F mean red cell hemoglobin 31.3 pg 27.0-3 3.0 Not Available [facility] (Lab) [address] [place], [address], 02/19/2024 12:03:02 02/19/20 24 02/19/2024 CBC/C OMPLE TE BLD COUNT W/DIF F mean RBC HGB concentratio n 31.4 g/dL 31.0-3 6.0 Not Available [facility] (Lab) [address] [place], [address], 02/19/2024 12:03:02 02/19/20 24 02/19/2024 CBC/C OMPLE TE BLD COUNT W/DIF F red cell distribution width 13.9 % 11.8-1 5.5 Not Available [facility] (Lab) [address] [place], [address], 02/19/2024 12:03:02 02/19/20 24 02/19/2024 CBC/C OMPLE TE BLD COUNT W/DIF F platelets 450 x10'3 /uL 150-40 0 high Not Available [facility] (Lab) [address] [place], [address], 02/19/2024 12:03:02 02/19/20 24 02/19/2024 CBC/C OMPLE TE BLD COUNT W/DIF F mean platelet volume 10.2 fL 9.0-12 .4 Not Available [facility] (Lab) [address] [facility] [place], [address], 02/19/2024 12:03:02 02/19/20 24 02/19/2024 CBC/C OMPLE TE BLD COUNT W/DIF F neutrophils 43 % 39.0-7 2.0 Not Available [facility] (Lab) [address] [facility] [place], [address], 02/19/2024 12:03:02 02/19/20 24 02/19/2024 CBC/C OMPLE TE BLD COUNT W/DIF F lymphocytes 52 % 16.0-4 7.0 high Not Available [facility] (Lab) [address] [place], [address], 02/19/2024 12:03:02 02/19/20 24 02/19/2024 CBC/C OMPLE TE BLD COUNT W/DIF F monocytes 3 % 5.0-12 .0 low Not Available [facility] (Lab) [address] [place], [address], 02/19/2024 12:03:02 02/19/20 24 02/19/2024 CBC/C OMPLE TE BLD COUNT W/DIF F eosinophils 2 % 1.0-7. 0 Not Available [facility] (Lab) [address] [place], [address], 02/19/2024 12:03:02 02/19/20 24 02/19/2024 CBC/C OMPLE TE BLD COUNT W/DIF F neutrophils, absolute count 4.99 x10'3 /uL 1.5-8. 0 Not Available [facility] (Lab) [address] [place], [address], 02/19/2024 12:03:02 02/19/20 24 02/19/2024 LIPID PANEL cholesterol 136 mg/dL 140-19 9 low NIH ALEKS NSUS RECOM MENDA TION FOR GLORIA STERO L: ADULT CHILD LOW RISK: <200 <170 BORDE RLINE : <200- 239 ----- HIGH RISK: >240 >200 Not Available [facility] (Lab) [address] [place], [address], 02/19/2024 12:03:05 02/19/2002/19/2024 LIPID PANEL triglyceride s 199 mg/dL 0-150 high NIH ALEKS NSUS REPOR T RECOM MENDA TION FOR TRIGL YCERI WES: ADULT CHILD LOW RISK: <150 ----- BODER LINE: 150-1 99 ----- HIGH RISK: >200 ----- Not Available [facility] (Lab) [address] [place], [address], 02/19/2024 12:03:05 02/19/20 24 02/19/2024 LIPID PANEL HDL cholesterol 33 mg/dL 40- low Not Available [facility] (Lab) [address] [place], [address], 02/19/2024 12:03:05 02/19/20 24 02/19/2024 LIPID PANEL LDL cholesterol, calculated 63 mg/dL 0-130 NIH ALEKS NSUS REPOR T RECOM MENDA TIONS FOR LDL: ADULT CHILD LOW RISK <130 <110 (OPTI MAL LDL) <100 ----- BORDE RLINE : 130-1 59 ----- HIGH RISK: >160 >130 A TRIGL YCERI DE RESUL T >400 INVAL IDATE S THE CALCU LATIO N FOR LDL FRACT IONAT ION - THE LDL RESUL T WILL NOT BE REPOR MINESH. Not Available [facility] (Lab) [address] [place], [address], 02/19/2024 12:03:05 02/19/20 24 02/19/2024 COMPR EHENS YULIANA METAB OLIC PANEL sodium 138 mmol/ L 137-14 5 Not Available [facility] (Lab) [address] [place], [address], 02/19/2024 12:03:10 02/19/20 24 02/19/2024 COMPR EHENS YULIANA METAB OLIC PANEL potassium 4.9 mmol/ L 3.5-5. 1 Not Available [facility] (Lab) [address] [place], [address], 02/19/2024 12:03:10 02/19/20 24 02/19/2024 COMPR EHENS YULIANA METAB OLIC PANEL chloride 109 mmol/ L 98-107 high Not Available [facility] (Lab) [address] [place], [address], 02/19/2024 12:03:10 02/19/20 24 02/19/2024 COMPR EHENS YULIANA METAB OLIC PANEL carbon dioxide 23 mmol/ L 22-30 Not Available [facility] (Lab) [address] [place], [address], 02/19/2024 12:03:10 02/19/20 24 02/19/2024 COMPR EHENS YULIANA METAB OLIC PANEL anion gap 10.9 mmol/ L 14-22 low Not Available [facility] (Lab) [address] [place], [address], 02/19/2024 12:03:10 02/19/20 24 02/19/2024 COMPR EHENS YULIANA METAB OLIC PANEL glucose 125 mg/dL 70-99 high Not Available [facility] (Lab) [address] [place], [address], 02/19/2024 12:03:10 02/19/20 24 02/19/2024 COMPR EHENS YULIANA METAB OLIC PANEL BUN 19 mg/dL 8-19 Not Available [facility] (Lab) [address] [place], [address], 02/19/2024 12:03:10 02/19/2002/19/2024 COMPR EHENS YULIANA METAB OLIC PANEL creatinine 1.15 mg/dL 0.66-1 .25 Not Available [facility] (Lab) [address] [place], [address], 02/19/2024 12:03:10 02/19/20 24 02/19/2024 COMPR EHENS YULIANA METAB OLIC PANEL GFR 47 Refer ence Range : [place] GFR Healt hy Adult : >60 mL/mi n/1.7 3 m2 Chron ic Kidne y Disea se: 15-60 mL/mi n/1.7 3 m2 Kidne y Failu re: <15/m L/min /1.73 m2 www.n iddk. nih.g ov The MDRD study equat ion has not been valid ated in child tameka <18 years of age; pregn ant women ; the elder ly >85 years of age; or in some racia l or ethni c subgr oups, such as Hisva nics. Outsi de the valid ated tk eters , estim ated GFR is less accur ate, requi ring clini marian judgm ent on a case- by-ca se basis . Clini marian inter preta tion for other races and ages must be made by the clini billy. The MDRD study equat ion has not been valid ated for the evalu ation of serum creat inine relat ed to nutri hunter l statu s or medic ation usage . For perso ns <18 years of age, a pedia tric GFR calcu lator is avail able on the [facility] websi te: https ://zoe pinzon.mandie denton/pr butch stevenal s/kdo qi/gf r_cal culat or Not Available [facility] (Lab) [address] [place], [address], 02/19/2024 12:03:10 02/19/2002/19/2024 COMPR EHENS YULIANA METAB OLIC PANEL alkaline phosphatase 78 U/L 38-126 Not Available [facility] (Lab) [address] [place], [address], 02/19/2024 12:03:10 02/19/20 24 02/19/2024 COMPR EHENS YULIANA METAB OLIC PANEL alanine aminotransfe rase 22 U/L 0-35 Not Available [facility] (Lab) [address] [place], [address], 02/19/2024 12:03:10 02/19/20 24 02/19/2024 COMPR EHENS YULIANA METAB OLIC PANEL aspartate aminotransfe rase 24 U/L 15-37 Not Available [facility] (Lab) [address] [place], [address], 02/19/2024 12:03:10 02/19/20 24 02/19/2024 COMPR EHENS YULIANA METAB OLIC PANEL bilirubin, total 0.40 mg/dL 0.20-1 .30 Not Available [facility] (Lab) [address] [facility] [place], [address], 02/19/2024 12:03:10 02/19/20 24 02/19/2024 COMPR EHENS YULIANA METAB OLIC PANEL calcium 9.7 mg/dL 8.4-10 .2 Not Available [facility] (Lab) [address] [place], [address], 02/19/2024 12:03:10 02/19/20 24 02/19/2024 COMPR EHENS YULIANA METAB OLIC PANEL total protein 6.9 g/dL 6.3-8. 2 Not Available [facility] (Lab) [address] [place], [address], 02/19/2024 12:03:10 02/19/20 24 02/19/2024 COMPR EHENS YULIANA METAB OLIC PANEL albumin 4.1 g/dL 3.0-4. 4 Not Available [facility] (Lab) [address] [place], [address], 02/19/2024 12:03:10 02/19/20 24 02/19/2024 COMPR EHENS YULIANA METAB OLIC PANEL globulin 2.8 g/dL 2.6-4. 2 Not Available [facility] (Lab) [address] [place], [address], 02/19/2024 12:03:10 02/19/20 24 02/19/2024 COMPR EHENS YULIANA METAB OLIC PANEL A/G ratio 1.5 ratio 1.0-2. 0 Not Available [facility] (Lab) [address] [place], [address], 02/19/2024 12:03:10 02/19/20 24 02/19/2024 T4 FREE free T4 0.88 NG/dL 0.78-2 .19 Not Available [facility] (Lab) [address] [place], [address], 02/19/2024 12:21:33 02/19/2002/19/2024 MICRO ALBUM IN RANDO M URINE microalbumin , urine 28.6 mg/L 0.0-16 .6 high Not Available [facility] (Lab) [address] [place], [address], 02/19/2024 12:25:51 02/19/20 24 02/19/2024 TSH thyroid-stim ulating hormone 1.370 uIU/m L 0.465- 4.680 Not Available [facility] (Lab) [address] [place], [address], 02/19/2024 12:33:09 02/19/20 24 02/19/2024 VITAM IN B12 (SCOOBY JOSE LUIS ) vb12 527 pg/mL 239-93 1 Not Available [facility] (Lab) [address] [place], [address], 02/19/2024 13:33:52 02/19/20 24 02/19/2024 FOLAT E, SERUM /PLAS MA folate 11.8 NG/mL 2.76-2 0.0 Not Available [facility] (Lab) [address] [place], [address], 02/19/2024 13:33:57 02/19/20 24 02/19/2024 VITAM IN D 25-HY DROXY vd25oh 55.1 NG/mL 30-100 Vitam in D Statu s: Defic ient: <20 ng/mL Insuf ficie nt: 20-29 ng/mL Suffi cient : 30-10 0 ng/mL Not Available [facility] (Lab) [address] [place], [address], 02/19/2024 13:34:08 02/19/20 24 02/19/2024 HEMOG LOBIN A1C HA1C 7.4 % 4.0-6. 0 high Diabe dick Scree brennon Crite kena: <5.7% Consi stent with absen ce of diabe dick 5.7-6 .4% Consi stent with incre ased risk for diabe dick (pred iabet es) >OR=6 .5% Consi stent with diabe dick REFER ENCE: Diabe dick Care 2016, 39(Jones ppl.1 ):s13 -s22 Not Available [facility] (Lab) [address] [place], [address], 02/19/2024 15:16:55 07/27/19 24 07/27/2023 US, echoc ardio gram No observ ation record ed. [email or web address] [facility] [address], [place], [address], 08/31/2023 11:13:49 07/27/19 24 07/27/2023 imagi ng/di agnos tic resul t No observ ation record ed. CHITO [facility] [address], [place], [address], 07/27/2023 12:41:40 07/27/19 24 07/26/2023 US, lisa x, jose miguelt id arter y No observ ation record ed. [email or web address] [facility] [address], [place], [address], 08/31/2023 11:14:19 07/27/19 24 07/26/2023 imagi ng/di agnos tic resul t No observ ation record ed. CHITO [facility] [address], [place], [address], 07/27/2023 12:45:11 08/10/19 24 08/10/2023 US, abdom en, limit [place] [address] Patien t Name: DEA AGUSTIN Access ion #: [id number] Sex: F : 1955 3 Dictat ed By: Bruce Valdes Attend ing Physic orin: CARLITOS SCHULZ Orderconstance kelley Physic orin: CARLITOS SCHULZ Exam Date: 2023 07:38 AM Exam Name: US ABDOME N SINGLE ORGAN Admitt ing Diagno sis(es ): INDICA TION: Pain. TECHNI QUE: Multip le real-t gadiel sonogr aphic images were obtain ed of the right upper quadra nt. COMPAR CAROL: Prior exam dated. FINDIN GS: The liver demons trates homoge nous echote xture withou t focal mass lesion s. There is no intrah epatic or extrah epatic ductal dilata tion. The common duct measur es 5 mm. The gallbl adder is withou t eviden ce of stone or sludge . The gallbl adder wall measur es 2 mm and is within normal limits . The right kidney measur es 9 cm. Right kidney appear s atroph ic and echoge juany. 2 cm right renal cyst. Mild right hydron ephros is. The pancre as is not well visual ized due to overly ing bowel gas. IMPRES ARSLAN: 1. Right medica l renal diseas e with mild right hydron ephros is. Electr onical ly Signed by: Bruce Valdes at 2023 08:47: 37 AM Page 1 [email or web address] [facility] ([facility] [address] [place], [address], 09/05/2023 11:51:10 08/10/19 24 08/10/2023 US, liver No observ ation record ed. [email or web address] [facility] [address] [place], [address], 09/05/2023 11:51:10 08/10/19 24 08/10/2023 US, head + neck, soft tissu e [facility] [address] [place] [address] [id number] Patien t Name: DEA AGUSTIN Access ion #: [id number] Sex: F : 1955 3 Dictat ed By: Des García ms Attend ing Physic orin: CARLITOS SCHULZ Orderi Physic orin: CARLITOS SCHULZ Exam Date: 2023 07:38 AM Exam Name: US NECK HEAD SOFT TISSUE Admitt ing Diagno sis(es ): ULTRAS OUND SOFT TISSUE [facility] INDICA TION: Abnorm al serum enzyme levels . TECHNI QUE: Multip le real time sonogr aphic images of the thyroi d were obtain ed. COMPAR CAROL: None. FINDIN GS: The right thyroi d gland measur es 3.7 x 1.1 x 1.0 cm. The left thyroi d gland measur es approx imatel y 3.8 x 1.4 x 1.0 cm. The isthmu s measur es 0.1 cm. There are 3 right and one left thyroi d nodule . Thyroi d nodule s are descri bed below using TIRADS criter ia. Inferi or and latera l to the right lobe of the thyroi d, there is an echoge juany solid nodule measur ing 2.1 x 1.3 x 1.2 cm. This is indete rminat e. ACR TIRADS Nodule # 1 Locati on: Right midpol e Measur ement: 0.8 x 0.3 x 0.6 cm Compos ition: Solid = 2 Echoge nicity : hypoec hoic = 2 Shape: Wider than tall Margin : Smooth Echoge juany foci: None Total points = 4 TR 4 Page 1 [facility] [address] [facility], [place] [address] Patien t Name: DEA AGUSTIN Access ion #: [id number] Sex: F : 1955 3 Dictat ed By: Des García ms Attend ing Physic orin: ANGELLA TRUJILLO [facility] Physic orin: CARLITOS SCHULZ Exam Date: 2023 07:38 AM Exam Name: US NECK HEAD SOFT TISSUE Admitt ing Diagno sis(es ): Nodule # 2 Locati on: Right lower pole Measur ement: 0.8 x 0.7 x 0.7 cm Compos ition: Solid = 2 Echoge nicity : hypoec hoic = 2 Shape: wider than tall = 0 Margin : Smooth = 0 Echoge juany foci: None=0 Total points = 4 TR 4 Nodule # 3 Locati on: Left upper pole. Measur ement: 0.7 x 0.4 x 0.6 cm Compos ition: Solid = 2 Echoge nicity : hypoec hoic = 2 Shape: wider than tall = 0 Margin : Smooth = 0 Echoge juany foci: None=0 Total points = 4 TR 4 IMPRES ARSLAN: 1. Thyroi d nodule s as descri bed. Recomm endati ons descri bed below. 2. Indete rminat e 2.1 cm echoge juany nodule inferi or and latera l to the right thyroi d lobe. Fine-n eedle aspira tion is recomm ended. [employer] TI-RAD S Catego corrina and Recomm endati ons (2017) : TR4: 4-6 points , Modera tely Suspic ious, FNA if > or = 1.5 cm, Follow if > or = 1.0 cm TR4: at 1, 2, 3 and 5 years, if no growth or change in TI-RAD S level Source : ACR Thyroi d Imagin g, Report ing and Data System (TI-RA DS): White Paper of the ACR TI-RAD S Commit ally. Ivette et al., J Am Sarthak Radiol 2017;1 4:587- 595. Electr onical ly Signed by: Des García ms at 2023 08:58: 19 AM Page 3 [facility] (Imaging) [address] [place], [address], 09/05/2023 11:45:32 08/10/19 24 08/10/2023 US, thyro id No observ ation record ed. [email or web address] [facility] [address] [place], [address], 09/05/2023 11:51:11 09/29/19 24 09/29/2023 NM, myoca rdial perfu arslan scan No observ ation record ed. [email or web address] [place] [address] [facility] [address], [place], [address], 12/07/2023 12:34:17 09/29/19 24 09/29/2023 imagi ng/di agnos tic resul t No observ ation record ed. [facility] [address], [place], [address], 09/29/2023 19:04:49 12/20/19 24 12/20/2023 imagi ng/di agnos tic resul t No observ ation record ed. [facility] [address], [place], [address], 12/20/2023 10:57:33 12/20/19 24 12/20/2023 fine needl e aspir ation , ultra sound guide d, thyro id (PROC ) No observ ation record ed. [address], [place], [address], 12/21/2023 09:56:14 12/22/1912/20/2023 fine needl e aspir ation No observ ation record ed. [place] [id number] [facility] [address], [place], [address], 12/22/2023 11:10:30 12/22/1912/20/2023 fine needl e aspir ation , ultra sound guide d, thyro id (PROC ) No observ ation record ed. [address], [place], [address], 12/25/2023 08:08:43 Result Notes None recorded. Problems Name Problem SNOMED Code Status Onset Date Resolution Date Notes Provider Name and Address Organization Details Recorded Time Type 2 diabetes mellitus without complication 226244668 Active 2022 Not Available [facility] 3 06:53:10 Acid reflux 521978724 Active 2022 Not Available [facility] 3 06:53:10 Vitamin D deficiency 88535344 Active 2022 Not Available [facility] 3 06:53:10 Thrombocytosi s 9133521 Active 2022 Marbella Reyes, [place], [place] [employer] [facility] 3 14:13:15 Smoker 70468333 Active 2022 Terence stapleton MD [address], [place], [address] , [email or web address] [facility] 3 15:40:08 Coronary arteriosclero sis 35601671 Active 2022 Terence stapleton MD [address], [place], [address] , [facility] [employer] [facility] [employer] 3 15:41:37 Essential hypertension 32949475 Active 2022 Terence stapleton MD [address], [place], [address] , [facility] 3 15:42:42 Serum vitamin B12 below reference range 515366211 Active 2022 Terence stapleton MD [address], [place], [address] , [facility] 3 15:44:46 Gastroesophag eal reflux disease without esophagitis 922342920 Active 2022 Terence stapleton MD [address], [place], [address] , [facility] 3 15:45:11 Malignant neoplasm of urinary bladder 430084259 Active 2022 Terence stapleton MD [address], [place], [address] , [facility] 3 15:46:30 Low back pain 095239707 Active 2022 Terence stapleton MD [address], [place], [address] , [facility] 3 15:49:26 Thyroid nodule 202300145 Active 2022 Terence stapleton MD [address], [place], [address] , [facility] 3 09:52:31 Vertebral artery stenosis 52915860 Active 2022 Terence stapleton MD [address], [place], [address] , [facility] 3 09:54:50 Visual impairment 604462312 Active 2022 Terence stapleton MD [address], [place], [address] , [facility] 3 10:01:59 Cerebrovascul ar accident 595541029 Active 2022 Aidee [place], [place] [facility] 3 12:25:16 Chronic obstructive pulmonary disease 93168105 Active 2023 Terence stapleton MD [address], [place], [address] , [facility] 4 18:22:21 Nausea 890193855 Active 2023 Terence stapleton MD [address], [place], [address] , [facility] 4 18:22:22 Hyperkalemia 78295536 Active 2023 Terence stapleton MD [address], [place], [address] , [facility] 4 18:27:13 Proteinuria 94669223 Active 2023 Terence stapleton MD [address], [place], [address] , [facility] 4 18:28:04 Hypothyroidis m 50514594 Active 2023 Terence stapleton MD [address], [place], [address] , [facility] 4 18:29:42 Solitary nodule of lung 559786126 Active 2023 Christine Barrios MD [address], [place], [address] , [facility] 4 11:48:49 Chronic cough 83424908 Active 2023 Christine Barrios MD [address], [place], [address] , [facility] 4 11:48:59 Hypocalcemia 8860769 Active 2023 Jodi Spencer MA null, [facility] 4 14:32:09 Hyperthyroidi sm 74344173 Active 2023 Jodi Spencer MA null, [facility] 4 14:36:30 Liver enzymes level above reference range 430136172 Active 2023 Jodi Spencer MA null, [facility] 4 14:38:30 Platelet count outside reference range 940928548 Active 2023 Jodi Spencer MA null, [facility] 4 16:53:46 Cobalamin deficiency 516917788 Active 2023 Josie Slaughter MA null, [facility] 4 17:32:06 Acute bronchitis 26309369 Active 2023 Trisha Huntley CMA null, [facility] 4 12:31:56 Hyperlipidemi a 07814914 Active 2018 Not Available [facility] 3 06:53:10 Osteoporosis 75910035 Active 2021 Not Available [facility] 3 06:53:10 Diabetes mellitus 70225244 Active 2018 Not Available [facility] 3 06:53:10 Notes:Medical History: 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 Procedures Surgical History Date Name Laterality Status Provider Name and Address Organization Details Recorded Time 10/12/19 24 Medicare Wellness CPT Code, subsequent completed Desmond Rojas LPN [place] [employer] [facility] [employer] [facility] 10/12/2023 08:19:01 10/12/19 Advanced Care Planning completed Desmond Rojas LPN [place] [employer] [facility] [employer] [facility] 10/12/2023 16:14:47 02/22/20 Transitional_Care _Management completed Vanna Dave, [employer] [address] [facility], [facility] [address], [place], [address], [facility] [employer] [facility] 02/21/2023 15:45:18 01/05/20 procedure on urinary bladder completed Not Available [facility] 07/20/2022 04:42:53 11/11/19 procedure on urinary bladder completed Not Available [facility] 07/20/2022 04:42:53 07/15/19 procedure on urinary bladder completed Not Available [facility] 07/20/2022 04:42:53 09/12/19 19 transurethral excision of neoplasm of urinary bladder completed Not Available [facility] 07/20/2022 04:42:53 01/17/20 18 transurethral excision of neoplasm of urinary bladder completed Not Available [facility] 07/20/2022 04:42:53 01/17/20 18 Cystoscopy and treatment completed Not Available [facility] 07/20/2022 04:42:53 10/26/19 18 Cystoscopy and treatment completed Not Available [facility] 07/20/2022 04:42:53 03/20/20 17 Tlh w/t/o 250 g or less completed Not Available [facility] 07/20/2022 04:42:53 03/20/20 17 robotic assisted surgery completed Not Available [facility] 07/20/2022 04:42:53 Tubal Ligation completed Not Available [facility] 07/20/2022 04:42:53 transurethral excision of neoplasm of urinary bladder completed Not Available [facility] 07/20/2022 04:42:53 excision of urinary bladder completed Marbella Reyes MA [facility] [employer] [facility] 02/21/2023 14:20:24 tonsillectomy completed MARIXA Faith [place] [employer] [facility] [employer] [facility] 09/06/2023 12:51:39 Imaging Results Imaging Date Name Status LastModified by Organization Details LastModified Time 07/27/2023 US, echocardiogram completed [email or web address] [facility] [address], [place], [address], 08/31/2023 11:13:49 07/27/2023 imaging/diagnostic result active [facility] [address], [place], [address], 07/27/2023 12:41:40 07/26/2023 US, duplex, carotid artery completed [email or web address] [facility] [address], [place], [address], 08/31/2023 11:14:19 07/26/2023 imaging/diagnostic result active [facility] [address], [place], [address], 07/27/2023 12:45:11 08/10/2023 US, abdomen, limited completed [email or web address] [facility] ([facility] [address] [place], [address], 09/05/2023 11:51:10 08/10/2023 US, liver completed [email or web address] [facility] [address] [place], [address], 09/05/2023 11:51:10 08/10/2023 US, head + neck, soft tissue completed [email or web address] [facility] [address] [place], [address], 09/05/2023 11:45:32 08/10/2023 US, thyroid completed [email or web address] [facility] [address] [place], [address], 09/05/2023 11:51:11 09/29/2023 NM, myocardial perfusion scan active [facility] [address], [place], [address], 12/07/2023 12:34:17 09/29/2023 imaging/diagnostic result active [facility] [address], [place], [address], 09/29/2023 19:04:49 12/20/2023 imaging/diagnostic result active [address], [address], 12/20/2023 10:57:33 12/20/2023 fine needle aspiration, ultrasound guided, thyroid (PROC) completed [address], [address], 12/21/2023 09:56:14 12/20/2023 fine needle aspiration completed [address], [address], 12/22/2023 11:10:30 12/20/2023 fine needle aspiration, ultrasound guided, thyroid (PROC) completed [address], [address], 12/25/2023 08:08:43 Procedure Notes None recorded. Medical Equipment None Reported. Allergies No known drug allergies Medications Name Sig Start Date Stop Date Status Note LastModified by Organization Details LastModified Time atorvastati n 40 mg tablet TAKE 1 TABLET BY MOUTH EVERYDAY AT BEDTIME 2023 active Not Available Not Available Not Avai lable metformin 500 mg tablet TAKE 1 TABLET BY MOUTH TWICE A DAY 2023 active Not Available Not Available Not Avai lable bupropion HCl SR 150 mg tablet,12 hr sustained-r elease TAKE 1 TABLET BY MOUTH EVERY DAY FOR 1 WEEK THEN INCREASE TO 1 TABLET TWICE A DAY 10/26 completed Not Available Not Available Not Available piperacilli n-tazobacta m 40.5 gram intravenous solution 04/20 completed Not Available Not Available Not Available atorvastati n 20 mg tablet TAKE 1 TABLET BY MOUTH EVERY DAY active Not Available Not Available No t Available polyethylen e glycol 3350 17 gram oral powder packet USE ONE PACKET QD UTD 09/13 completed Not Available Not Available Not Available atorvastati n 10 mg tablet TAKE 1 TABLET BY MOUTH EVERY DAY active Not Available Not Available No t Available cefpodoxime 200 mg tablet TAKE 1 TABLET BY MOUTH TWICE A DAY WITH A MEAL/FOOD 04/20 completed Not Available Not Available Not Available oxybutynin chloride ER 10 mg tablet,exte nded release 24 hr TK 1 T PO D 01/28 completed Not Available Not Available Not Available azithromyci n 250 mg tablet TAKE 2 TABLETS BY MOUTH TODAY, THEN TAKE 1 TABLET DAILY FOR 4 DAYS DIRECTED 06/13 completed Not Available Not Available Not Available glyburide 5 mg tablet TAKE 1 TABLET BY MOUTH EVERY DAY 04/21 completed Not Available Not Available Not Available nicotine (polacrilex ) 2 mg gum CHEW 1 PIECE OF GUM BY MOUTH ONCE EVERY 2 HOURS active Not Available Not Available No t Available fluconazole 150 mg tablet TAKE 1 TABLET BY MOUTH EVERY DAY 02/21 completed Not Available Not Available Not Available glyburide 2.5 mg tablet Take 1 tablet every day by oral route in the morning. 09/24 completed Not Available Not Available Not Available hydrocodone 5 mg-acetamin ophen 325 mg tablet TAKE 1 TABLET BY MOUTH EVERY 6 HOURS NEEDED FOR PAIN 04/20 completed Not Available Not Available Not Available phenazopyri dine 200 mg tablet TAKE 1 TABLET BY MOUTH THREE TIMES A DAY WITH MEALS FOR 2 DAYS 05/06 completed Not Available Not Available Not Available prednisone 20 mg tablet TAKE 2 TABLETS BY MOUTH EVERY DAY FOR 5 DAYS 06/13 completed Not Available Not Available Not Available alendronate 70 mg tablet TAKE 1 TABLET BY MOUTH ONE TIME PER WEEK active Not Available Not Available No t Available Accu-Chek Softclix Lancets 07/22 completed Not Available Not Available Not Available ciprofloxac in 500 mg tablet TAKE 1 TABLET BY MOUTH TWICE A DAY FOR 7 DAYS 02/21 completed Not Available Not Available Not Available hydrocodone 10 mg-acetamin ophen 325 mg tablet TK 1 T PO Q 6 H PRN 01/28 completed Not Available Not Available Not Available omeprazole 40 mg capsule,del ayed release TAKE 1 CAPSULE BY MOUTH EVERY DAY active Not Available Not Available No t Available acetaminoph en 500 mg tablet PRN 09/10 completed Not Available Not Available Not Available sodium bicarbonate 650 mg tablet TAKE 2 TABLETS BY MOUTH TWICE A DAY DIRECTED active Not Available Not Available No t Available benzonatate 100 mg capsule TAKE 1 CAPSULE BY MOUTH THREE TIMES A DAY NEEDED FOR COUGH 06/13 completed Not Available Not Available Not Available cephalexin 500 mg capsule TAKE 1 CAPSULE (500 MG) ORALLY EVERY 6 HOURS FOR 7 DAYS 07/22 completed Not Available Not Available Not Available cyanocobala min (vit B-12) 1,000 mcg/mL injection solution Inject 1 mL every month by subcutane ous route. 2023 active Not Available Not Available Not Avai lable nicotine 21 mg/24 hr daily transdermal patch APPLY 1 PATCH TOPICALLY ONCE EVERY DAY active Not Available Not Available No t Available docusate sodium 100 mg capsule TAKE 1 CAPSULE BY MOUTH ONCE DAILY UNTIL DONE TAKING PAIN MEDICATIO N active Not Available Not Available No t Available bisacodyl 5 mg tablet,fátima yed release TAKE ALL 6 TABLETS BY MOUTH AT 8 AM ON 08/28/2310/11 completed Not Available Not Available Not Available ergocalcife rol (vitamin D2) 1,250 mcg (50,000 unit) capsule TAKE 1 CAPSULE BY MOUTH ONE TIME PER WEEK FOR 90 DAYS active Not Available Not Available No t Available levofloxaci n 500 mg tablet TAKE 1 TABLET BY MOUTH EVERY DAY 01/28 completed Not Available Not Available Not Available methylpredn isolone 4 mg tablets in a dose pack Take as directed 09/06 completed Not Available Not Available Not Available oxybutynin chloride 5 mg tablet TAKE 1 TABLET BY MOUTH THREE TIMES A DAY NEEDED (BLADDER SPASMS) 05/06 completed Not Available Not Available Not Available ondansetron 4 mg disintegrat ing tablet DISSOLVE 1 TABLET ON THE TONGUE EVERY 6 HOURS NEEDED FOR NAUSEA/VO MITING 07/22 completed Not Available Not Available Not Available lisinopril 2.5 mg tablet TAKE 1 TABLET BY MOUTH EVERY DAY 2024 active Not Available Not Available Not Avai lable calcitriol 0.25 mcg capsule TAKE 1 CAPSULE BY MOUTH EVERY DAY active Not Available Not Available No t Available amoxicillin 875 mg-potassiu m clavulanate 125 mg tablet 02/21 completed Not Available Not Available Not Available Ventolin HFA 90 mcg/actuati on aerosol inhaler INHALE 2 PUFFS BY MOUTH EVERY 4 HOURS ONLY NEEDED UNTIL DIRECTED TO STOP active Not Available Not Available No t Available oxycodone 5 mg tablet TAKE 1 TABLET BY MOUTH ONCE EVERY 6 HOURS NEEDED FOR PAIN active Not Available Not Available No t Available Bactrim DS 800 mg-160 mg tablet Take 1 tablet twice a day by oral route for 7 days. active Not Available Not Available No t Available Fish Oil Concentrate 1,000 mg capsule Take 1 capsule twice a day by oral route. 03/09 completed Not Available Not Available Not Available nitrofurant oin monohydrate /macrocryst als 100 mg capsule TAKE 1 CAPSULE EVERY 12 HOURS BY ORAL ROUTE WITH MEALS FOR 5 DAYS. active Not Available Not Available No t Available heparin, porcine (PF) 10 unit/mL intravenous syringe 04/20 completed Not Available Not Available Not Available micafungin 100 mg intravenous solution 04/20 completed Not Available Not Available Not Available fenofibrate 54 mg tablet Take 1 tablet every day by oral route. 01/28 completed Not Available Not Available Not Available GaviLyte-G 236 gram-22.74 gram-6.74 gram-5.86 gram oral solution DRINK 1/2 AT 5 PM ON 08/27 AND THE OTHER HALF AT 5 AM ON 410/11 completed Not Available Not Available Not Available Prolia 60 mg/mL subcutaneou s syringe inject 1 ml subcutane ous every 6 months- bring to office for injection 03/08 completed Not Available Not Available Not Available Chantix Continuing Month Box 1 mg tablet TAKE 1 TABLET BY MOUTH TWICE A DAY active Not Available Not Available No t Available Chantix Starting Month Box 0.5 mg (11)-1 mg (42) tablets in dose pack Take 1 startr pk by oral route. 07/23 completed Not Available Not Available Not Available Janumet XR 100 mg-1,000 mg tablet,exte nded release 05/31 completed Not Available Not Available Not Available Eliquis 2.5 mg tablet 07/26 completed Not Available Not Available Not Available Victoza 3-Nacho 0.6 mg/0.1 mL (18 mg/3 mL) subcutaneou s pen injector INJECT 1.2 MG UNDER THE SKIN ONCE DAILY 07/26 completed Not Available Not Available Not Available Anoro Ellipta 62.5 mcg-25 mcg/actuati on powder for inhalation Inhale 1 puff every day by inhalatio n route for 90 days. 09/10 completed Not Available Not Available Not Available Jardiance 10 mg tablet TAKE 1 TABLET BY MOUTH EVERY DAY active Not Available Not Available No t Available Jardiance 25 mg tablet TAKE 1 TABLET BY MOUTH EVERY DAY IN THE MORNING 10/11 completed Not Available Not Available Not Available True Metrix Glucose Test Strip USE TO TEST ONCE DAILY 2023 active Not Available Not Available Not Avai lable True Metrix Glucose Meter USE DIRECTED. 07/22 completed Not Available Not Available Not Available NovoFine Plus 32 gauge x 1/6 needle Use as directed- ok to sub with whatever brand covered by pt insurance 07/22 completed Not Available Not Available Not Available Fish Oil 1,000 mg (120 mg-180 mg) capsule Take by oral route. 09/10 completed Not Available Not Available Not Available BD Ultra-Fine Micro Pen Needle 32 gauge x 1/4 USE TO INJECT ONCE DAILY 07/22 completed Not Available Not Available Not Available Ozempic 0.25 mg or 0.5 mg (2 mg/1.5 mL) subcutaneou s pen injector active Not Available Not Available Not Available Steglatro 15 mg tablet Take 1 tablet every day by oral route. 03/09 completed Not Available Not Available Not Available Steglatro 5 mg tablet TAKE 1 TABLET BY MOUTH EVERY DAY IN THE MORNING 09/10 completed Not Available Not Available Not Available OneTouch Ultra Blue Test Strip USE TO TEST ONCE DAILY 07/22 completed Not Available Not Available Not Available OneTouch Delica Plus Lancet 33 gauge USE TO TEST ONCE DAILY DIRECTED 07/22 completed Not Available Not Available Not Available Vitals Date Recorded Body height Body mass index (BMI) Body weight Body temperature Heart rate Oxygen saturation Oxygen saturation in Arterial blood by Pulse oximetry Systolic blood pressure Diastolic blood pressure Provider Name and Address Organization Details Last Updated DateTime 4 167.64 cm 18.7 kg/m2 95846.7 1 g 98.1 [degF] 67 /min 98 % 98 % 124 mm[Hg] 68 mm[Hg] MARISELA Jimenez - [facility] [place] [facility] 4 11:23:04 Date Recorded Heart rate Respiratory rate Provider N calvin and Address Organization Details Last Updated DateTime 07/31/2023 67 /min 15 /min Christine Barrios MD [address] [facility], [facility] [address], [place], [address], [facility] 07/31/2023 11:32:14 Date Recorded Body height Body mass index (BMI) Body weight Provider Name and Address Organization Details Last Updated DateTime 09/28/2023 167.64 cm 20.7 kg/m2 79259.54 g Demetria Padilla RN [facility] [employer] 09/28/2023 11:44:05 Date Recorded Body height Body mass index (BMI) Body weight Body temperature Heart rate Systolic blood pressure Diastolic blood pressure Provider Name and Address Organization Details Last Updated DateTime 4 167.64 cm 20.2 kg/m2 84680.0 5 g 97.4 [degF] 78 /min 122 mm[Hg] 60 mm[Hg] 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 [facility] [employer] 4 15:23:39 Date Recorded Pain severity - 0-10 verbal numeric rating [Score] - Reported Provider Name and Address Organization Details Last Updated DateTime 10/12/2023 0 Desmond Rojas LPN [facility] [facility] 10/12/2023 16:05:59 Date Recorded Body height Body mass index (BMI) Body weight Body temperature Heart rate Respiratory rate Oxygen saturation Oxygen saturation in Arterial blood by Pulse oximetry Pain severity - 0-10 verbal numeric rating [Score] - Reported Systolic blood pressure Diastolic blood pressure Provider Name and Address Organization Details Last Updated DateTime 4 167.64 cm 22.3 kg/m2 73543.7 5 g 97.8 [degF] 88 /min 16 /min 95 % 95 % 0 124 mm[Hg] 62 mm[Hg] Desmond Rojas LPN [facility] Kasenna [facility] 4 15:22:31 Date Recorded Body height Body mass index (BMI) Body weight Body temperature Heart rate Systolic blood pressure Diastolic blood pressure Provider Name and Address Organization Details Last Updated DateTime 5 167.64 cm 22.4 kg/m2 51270.3 4 g 97.5 [degF] 84 /min 132 mm[Hg] 60 mm[Hg] 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 CA - [facility] [place] Kasenna [facility] 5 15:45:13 Social History Question Answer Notes LastModified by Organization Details LastModified Time Tobacco Smoking Status Current Every Day Smoker Not Available [facility] 07/20/2022 04:33:42 Do You Have An Advance Directive? No Patient Given Informati on. [email or web address] Information not available 10/12/2023 What Is Your Level Of Alcohol Consumption? None MIGRATION.0301 [id number] Information not available 07/20/2022 Are You Blind Or Do You Have Difficulty Seeing? No MIGRATION.0301 988887 Information not available 07/20/2022 What Is Your Level Of Caffeine Consumption? Occasional MIGRATION.0301 553571 Information not available 07/20/2022 How Much Tobacco Do You Chew? None MIGRATION.0301 930298 Information not available 07/20/2022 In The 14 Days Before Symptom Onset, Have You Had Close Contact With A Laboratory-confi rmed COVID-19 While That Case Was Ill? No MIGRATION.0301 024444 Information not available 07/20/2022 In The 14 Days Before Symptom Onset, Have You Had Close Contact With A Person Who Is Under Investigation For COVID-19 While That Person Was Ill? No MIGRATION.0301 192547 Information not available 07/20/2022 Are You Currently Employed? No Information not available 07/27/2023 Are You Deaf Or Do You Have Serious Difficulty Hearing? No MIGRATION.0301 484327 Information not available 07/20/2022 What Type Of Diet Are You Following? REGULAR MIGRATION.0301 908306 Information not available 07/20/2022 Which Illicit Or Recreational Drugs Have You Used? None MIGRATION.0301 858946 Information not available 07/20/2022 Do You Or Have You Ever Used E-cigarettes Or Vape? Former User Of Electronic Cigarettes Vape MIGRATION.0301 387340 Information not available 07/20/2022 What Is The Highest Grade Or Level Of School You Have Completed Or The Highest Degree You Have Received? RP70566-3 [email or web address] Information not available 10/12/2023 Do You Have An Electrostatic Air Filter? No Information not available 07/31/2023 What Is Your Occupation? Retired MIGRATION.030 454753 Information not available 07/20/2022 Have There Been Any Changes To Your Family Or Social Situation? No MIGRATION.030 787039 Information not available 07/20/2022 What Is The Fluoride Status Of Your Home? Unknown [email or web address] Information not available 10/12/2023 Are There Any Guns Present In Your Home? No MIGRATION.030 108137 Information not available 07/20/2022 Do You Have A Humidifier? No Information not available 07/31/2023 Do You Use Insect Repellent Routinely? No MIGRATION.030 129199 Information not available 07/20/2022 Where Do You Live? [place] MIGRATION.030 361296 Information not available 07/20/2022 Presence Of Domestic Violence No [email or web address] Information not available 10/12/2023 Guns Present In The Home? No [email or web address] Information not available 10/12/2023 Are You Able To Care For Yourself? Yes [email or web address] Information not available 10/12/2023 Are You Blind Or Do Yo Have Difficulty Seeing? No [email or web address] Information not available 10/12/2023 Are You Deaf Or Do You Have Serious Difficulty Hearing? No [email or web address] Information not available 10/12/2023 General Stress Level? Low [email or web address] Information not available 10/12/2023 Live Alone Of With Others? With Others Lives With Daughter. [email or web address] Information not available 10/12/2023 Do You Have A Medical Power Of Driver? No MIGRATION.030 414780 Information not available 07/20/2022 Do You Have Moisture Problems In Your Home? No Information not available 07/31/2023 What Was The Date Of Your Most Recent Tobacco Screening? 06/13/2024 Information not available 06/13/2024 What Is Your Current Pack Years? [email or web address] MIGRATION.0301 850773 Information not available 07/20/2022 Do You Have Any Pets? Yes MIGRATION.030 846879 Information not available 07/20/2022 What Is Your Relationship Status? MIGRATION.030 843947 Information not available 07/20/2022 Do You Use Your Seat Belt Or Car Seat Routinely? Yes Information not available 07/31/2023 Do You Have Smoke And Carbon Monoxide Detectors In Your Home? Yes MIGRATION.0301 712811 Information not available 07/20/2022 At What Age Did You Start Smoking Tobacco? 14 MIGRATION.0301 525709 Information not available 07/20/2022 Are You Passively Exposed To Smoke? Yes [email or web address] Information not available 10/12/2023 Do You Or Have You Ever Used Smokeless Tobacco? Never Used Smokeless Tobacco MIGRATION.0301 484047 Information not available 07/20/2022 Are There Any Smokers In Your House? Yes MIGRATION.0301 188390 Information not available 07/20/2022 How Much Tobacco Do You Smoke? 1 PPD MIGRATION.0301 174635 Information not available 07/20/2022 Do You Feel Stressed (tense, Restless, Nervous, Or Anxious, Or Unable To Sleep At Night)? [id number] [email or web address] Information not available 10/12/2023 Do You Use Any Illicit Or Recreational Drugs? No MIGRATION.0301 965846 Information not available 07/20/2022 Do You Use Sunscreen Routinely? No MIGRATION.0301 447482 Information not available 07/20/2022 Has Tobacco Cessation Counseling Been Provided? Yes Information not available 10/12/2023 On What Date Was Tobacco Cessation Counseling Provided? 10/12/2023 Information not available 10/12/2023 How Many Years Have You Smoked Tobacco? 47 MIGRATION.0301 458613 Information not available 07/20/2022 Have You Recently Traveled Abroad? No MIGRATION.0301 044066 Information not available 07/20/2022 Do You Have Any Dietary Restrictions? No MIGRATION.0301 245050 Information not available 07/20/2022 Do You Or Have You Ever Used Any Other Forms Of Tobacco Or Nicotine? Yes MIGRATION.0301 408237 Information not available 07/20/2022 Sex: Female Functional Status Question Answer Note LastModified by Organizat ion Details LastModified Time Do you have difficulty walking or climbing stairs? No MIGRATION.16815 05639 Information not available 07/20/2022 Do you have transportation difficulties? No MIGRATION.17089 79871 Information not available 07/20/2022 Are you able to walk? YESWOREST MIGRATION.04955 35771 Information not available 07/20/2022 Do you have difficulty doing errands alone? No MIGRATION.64377 48295 Information not available 07/20/2022 Are you able to care for yourself? Yes MIGRATION.81421 20516 Information not available 07/20/2022 Do you have difficulty dressing or bathing? No MIGRATION.14238 79583 Information not available 07/20/2022 What is your exercise level? Occasional active lifestyle MIGRATION.12286 09434 Information not available 07/20/2022 Mental Status Question Answer Note LastModified by Organizat ion Details LastModified Time Do you have difficulty concentrating, remembering or making decisions? No MIGRATION.[id number] 6 Information not available 07/20/2022 Family History Relationship Description Onset Age of this Age Resolved Age Notes LastModified by Organization Details LastModified Time Father Hypertensive disorder MIGRATION.079 [id number] Not available 07/20/2022 04:42:59 Father Cerebrovascu lar accident [email or web address] Not available 0 06/13/2024 15:09:41 Mother Diabetes mellitus MIGRATION.330 [id number] Not available 07/20/2022 04:42:59 Sister Leukemia Not availa ble 06/13/2024 15:09:41 Sister Disorder of thyroid gland PT REPORT S THAT HER SISTER TAKES THYROI D MEDICA TION [email or web address] Not available 10/12/2023 15:00:13 Maternal Uncle Heart disease 1 1 [email or web address] Not available 2023 11:51:03 Brother Leukemia [email or web address] Not avail able 06/13/2024 15:09:41 Medical History Condition Response NERVE DISEASE N BLINDNESS N RHEUMATIC FEVER N KIDNEY STONES N BLADDER PROBLEMS N MRSA N OTHER # 1 N POLIO N LUNG DISEASE/DISORDER Y RADIATION / CHEMOTHERAPY N COPD Y Other # 2 N BLOOD DISEASES N EAR OR HEARING PROBLEMS N MUMPS N BOWEL PROBLEMS N DEPRESSION (INCLUDING POST ) N STROKE/TIA N ULCERS N BENIGN PROSTATIC HYPERPLASIA N MEASLES N MYOCARDIAL INFARCTION N OBESITY N GERD/NAUSEA N ANEURYSM N URINARY/BLADDER/KIDNEY PROBLEMS Y CORONARY ARTERY DISEASE (CAD) N ADDICTION CONCERNS N Impotence N ENDOMETRIOSIS N USE OF BLOOD THINNERS N SKIN PROBLEMS N GASTROINTESTINAL DISORDER N PERIPHERAL VASCULAR DISEASE N MUSCLE,JOINT OR BONE PROBLEMS N GASTROINTESTINAL BLEEDING N BLOOD CLOTS N ASTHMA N CATARACTS N ERECTILE DYSFUNCTION N VARICOSITIES N GI PROBLEMS N Low Testosterone N INFERTILITY N AIDS/HIV N CHEMOTHERAPY / RADIATION N LIVER DISEASE N MALE HYPOGONADISM N HYPERTENSION N Deficiency Y TOURETTE'S N ANXIETY DISORDER N BLOOD TRANSFUSION N ANEMIA/BLOOD DISORDER N CHRONIC EAR INFECTIONS N BRONCHITIS N TUBERCULOSIS N GLAUCOMA N FOOT PROBLEM N DIVERTICULITIS N SLEEP APNEA N CHICKENPOX N INFECTIOUS DISEASE N PROSTATE N HEART ARRHYTHMIA N INSOMNIA N HIGH CHOLESTEROL / HYPERLIPIDEMIA Y EYE PROBLEMS N HYPERTHYROIDISM N EDEMA N CHRONIC PAIN SYNDROME N HYPOTHYROIDISM N CONSTIPATION N CAROTID BLOCKAGE N BACK / NECK PROBLEMS N HAVE YOU BEEN HOSPITALIZED OR SEEN IN [facility] IN THE PAST YEAR ? Y ATHEROSCLEROSIS N BREAST PROBLEMS N DIALYSIS N ECZEMA N OSTEOPOROSIS N ARTHRITIS N APPENDICITIS N DIABETES, TYPE Y BAD TEETH N ENT N HEARTBURN / REFLUX N AUTISM SPECTRUM DISORDER (ASD) N HEPATITIS / LIVER DISEASE N GOUT N SLEEP DISORDER N ALZHEIMER'S DISEASE N Brain Problems N DEMENTIA N HERPES N SEIZURES/EPILEPSY N HEADACHES/MIGRAINES N VASCULAR DISEASE N PACEMAKER N Blood Disorder N DIZZINESS N HEART DISEASE/HEART PROBLEMS N KIDNEY DISEASE N MULTIPLE SCLEROSIS N CANCER: SPECIFY Y CARDIAC ARRHYTHMIA N ATRIAL FIBRILLATION N Gall Stones N PULMONARY EMBOLISM N AUTOIMMUNE DISEASE N Gynecological History Statement/Question Response Abnormal Pap N STIs/STDs N Date of Last Pap Current Control Method Hysterectom y How many live births 3 If Post Menopausal, Age at Menopause 55 Date of Last Mammogram Date of Last Colonoscopy Most Recent Bone Density Sexually Active? N Menses Monthly N Obstetrics History GPAL:G 4 P 2 1 1 3 Type Value Multiple Births 0 Full Term 2 Induced 0 Spontaneous 1 Premature 1 Living 3 Ectopics 0 Total 4 Immunizations Vaccine Type Date Status Note Provider Nam e and Address Organization Details Recorded Time Influenza, high-dose, quadrivalent, PF 2 completed Not Available [facility] 01/17/2023 04:09:30 COVID-19, mRNA, LNP-S, PF, 100 mcg/0.5mL dose or 50 mcg/0.25mL dose 1 completed Not Available [facility] 01/17/2023 04:09:30 COVID-19, mRNA, LNP-S, PF, 100 mcg/0.5mL dose or 50 mcg/0.25mL dose 1 completed Not Available [facility] 01/17/2023 04:09:30 COVID-19, mRNA, LNP-S, PF, 100 mcg/0.5mL dose or 50 mcg/0.25mL dose 1 completed Not Available [facility] 01/17/2023 04:09:30 Pneumococcal conjugate PCV20, polysaccharide HAX616 conjugate, adjuvant, PF 2 completed Not Available [facility] 01/17/2023 04:09:30 Influenza, high-dose, quadrivalent, PF 1 completed Not Available [facility] 01/17/2023 04:09:30 Influenza, split virus, quadrivalent, PF 9 completed Not Available [facility] 01/17/2023 04:09:31 Influenza, high-dose, quadrivalent, PF 3 completed Terence Barber MD [address] [place] [address] [place], [place] [address], [place], [address], [employer] 05/09/2023 14:02:28 Influenza, high-dose, trivalent, PF 4 completed 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, [employer] 02/15/2024 16:06:54 Past Encounters Encounter ID Performer Location Encounter Start Date Encounter Closed Date Diagnosis/Indication Diagnosis SNOMED-CT Code Diagnosis ICD10 Code Diagnosis Note [id number] [facility] [address] , [address] [address] 09/10/2020 00:00:00 09/10/2020 13:24:11 [id number] [facility] [address] [place] [address] , [address] [address] 10/26/2020 00:00:00 10/26/2020 15:38:10 [id number] [facility] [address] [place] [address] Brycee., [facility] 15 [place] [address] 01/26/2021 00:00:00 01/26/2021 20:34:41 [id number] [facility] [address] [place] [address] Thalia., [address] [address] 04/13/2021 00:00:00 04/13/2021 11:52:13 [id number] [facility] [address] [facility] 15 [place] [address] 09/06/2021 00:00:00 09/06/2021 15:03:42 [id number] [facility] Internal Med [facility] [address] [facility] 15 [place] [address] 01/10/2022 00:00:00 01/10/2022 14:21:12 [id number] [facility] Internal Med [facility] [address] [facility] 15 [place] [address] 05/06/2022 00:00:00 05/06/2022 15:46:21 [id number] STACEY Berkowitz [facility] Internal Med [facility] [address] [facility] [address] [address] 11/07/2022 13:58:49 11/07/2022 14:26:23 Acid reflux 636421562 K21.9 on omeprazole , she is aware of risks, benefits, side effects Type 2 natan betes mellitus without complication 034818250 E11.9 on victoza, metformin pt is aware of side effects, risks, benefitspt denies any personal or family history of MEN II or MTC, denies and personal history of pancreatit ispt knows to call the office if any severe n/v or abdominal pain DM eye exam and daily foot checks recommende d Hyperlipidemia 90579035 E78.5 on atorvastat in Nicotine dependence 5629 4008 F17.200 3 minutes spent with patient discussing risks, cessation options. Patient encouraged to quit. LDCT- 09/2021 Chest pain 65174092 R07. 9 She did see cardiology - Dr. Rivas has not done her echo or her stress Tran in the interim if pain recurs Chronic ob structive pulmonary disease 71331131 J44.9 on proair prn, didn't garbage pick up man the Anoro, doesn't think she needs it Steatosis of liver 1007 K76.0 incidental ly noted on LDCT, declines any referral or liver u/s Multiple n odules of lung 744946436 R91.8 Next LDCT due 09/2022 History of malignant neoplasm of bladder 600313332 Z85.51 follows urology at [facility] Well woman health check declined [id number] Z53.20 risks explained including missed cancer and Screening for malignant neoplasm of colon 027306790 Z12.11 Pt refuses screening colonoscop y but agrees to Cologuard. All risks explained to her, including that Cologuard may miss 8% of cancers.Sh betsy reports she has the box at home, encouraged her to do this Osteoporosis 09374985 M8 1.0 on alendronat eshe is aware to take with a full glass of water and not lie down for 60 min after taking on OTC calcium, vitamin d weight bearing exercise recommende d Heart murmur 94664906 R0 1.1 get re-estabis hed with cardiology as above Adult [facility] th examination 546529379 Z00.01 Depression screening 171 502494 Z13.31 Screening mammography 24 546861 Z12.31 Vitamin D deficiency 347 67401 E55.9 on OTC supplement [id number] STACEY Berkowitz [facility] [place] [address] [facility], [place] [address] [place] [address] 02/21/2023 14:02:58 02/21/2023 14:49:38 Transition of care 4098168253 105 Z75.8 History of total cystectomy 860936865 Z90.6 has upcoming appt with surgeon on MondayHH ordered Sepsis 21131296 A41.9 currently has PICC [facility] ing [facility]'s daugther will call today to get her follow up appt scheduled Acid reflux 339643590 K2 1.9 on omeprazole , she is aware of risks, benefits, side effects Type 2 natan betes mellitus without complication 335907881 E11.9 on victoza, metformin pt is aware of side effects, risks, benefitspt denies any personal or family history of MEN II or MTC, denies and personal history of pancreatit ispt knows to call the office if any severe n/v or abdominal pain DM eye exam and daily foot checks recommende d Hyperlipidemia 62375667 E78.5 on atorvastat in Nicotine dependence 5629 4008 F17.200 3 minutes spent with patient discussing risks, cessation options. Patient encouraged to quit. LDCT- 09/2021- was ordered 10/2022 Chest pain 95732799 R07. 9 She did see cardiology - Dr. Rivas has not done her echo or her stress Tran in the interim if pain recurs Chronic ob structive pulmonary disease 67854619 J44.9 on proair prn, didn't garbage pick up man the Anoro, doesn't think she needs it Steatosis of liver 71570 1007 K76.0 incidental ly noted on LDCT, declines any referral or liver u/s Multiple n odules of lung 691003018 R91.8 Next LDCT due 09/2022 History of malignant neoplasm of bladder 450200977 Z85.51 follows urology at [facility] Well woman health check declined [id number] Z53.20 risks explained including missed cancer and Screening for malignant neoplasm of colon 592912800 Z12.11 Pt refuses screening colonoscop y but agrees to Cologuard. All risks explained to her, including that Cologuard may miss 8% of cancers.Sh e reports she has the box at home, encouraged her to do this was ordered 10/2022 Osteoporosis 42886438 M8 1.0 on alendronat eshe is aware to take with a full glass of water and not lie down for 60 min after taking on OTC calcium, vitamin d weight bearing exercise recommende d Screening mammography 24 459777 Z12.31 was ordered 10/2022 Vitamin D deficiency 347 65299 E55.9 on OTC supplement Muscle weakness 73215540 M62.81 she will benefit from walker to assist with safely completing her ADLs both in and out of the house Abdominal abscess 579236 08 K65.1 as above [id number] Terence stapleton MD [facility] [place] [address] , [place] [address] [place] [address] 04/20/2023 15:18:46 04/20/2023 16:21:10 Screening - NAD 103764710 Z13.9 C-scope: cologuard was ordered 11/07/2022 , should do a c-scope and referral provided Mammogram: 09/28/2021 : Neg Dexa: 09/28/2021 : Osteoporos is, on fosamax, take ca and vit d also PAP: Needs to see OB Get yearly flu shot, get tdap if not doneUTD on PCV #20Get shingrixCa n do COVID 19 vaccine and its boostersGe t RSV vaccine RTC in 3 months, do labs, she and her daughter verbalized her understand ing of the above Screening for malignant neoplasm of breast 234804681 Z12.39 Gynecologi c examination 38700724 Z01.419 Chronic ob structive pulmonary disease 26470518 J44.9 Seen on LDCTGet a referral to Dr Barrios Smoker 04046432 F17.200 Advised to quit smoking! LDCT 09/28/2021 : Emphysema, CAD Coronary arteriosclerosis 89430815 I25.10 Seen on LDCT, get a referral to cardiology Type 2 natan betes mellitus without complication 576558001 E11.9 On jardiance 25mg dailyOn metformin 500mg bidOn victozaGet labs Essential hypertension 52544648 I10 On lisinopril 2.5mg daily Hyperlipidemia 80641693 E78.5 On atorvastat in 40mg dailyGet labs Serum johny min B12 below reference range 740111621 R79.89 Vitamin D deficiency 347 76419 E55.9 Gastroesop hageal reflux disease without esophagitis 104938463 K21.9 On omeprazole Get an EGD done Malignant neoplasm of urinary bladder 029721086 C67.9 Dr Rodríguez urologyS/p surgeryNow has cath and bag Nausea 268781425 R11.0 On zorfran PRN Low back pain 310036031 M54.50 Get xrays, may need to see pain management Screening for malignant neoplasm of colon 154937370 Z12.11 Administra tion of influenza vaccine 01662030 Z23 Screening mammography 24 082309 Z12.31 [id number] Terence stapleton MD [facility] [place] [address] [facility], [place] [address] [place] [address] 07/27/2023 11:50:21 07/27/2023 12:37:47 Screening - NAD 115840701 Z13.9 C-scope: cologuard was ordered 11/07/2022 , should do a c-scope and referral provided Mammogram: 09/28/2021 : NegMammogr am: 024: Neg Dexa: 09/28/2021 : Osteoporos is, on fosamax, take ca and vit d also PAP: Needs to see OB Get yearly flu shot, get tdap if not doneUTD on PCV #20Get shingrixCa n do COVID 19 vaccine and its boostersGe t RSV vaccine RTC in 3 months, do labs, she and her daughter verbalized her understand ing of the above Gynecologi c examination 64781460 Z01.419 Chronic ob structive pulmonary disease 90301978 J44.9 LDCT 06/14/2023 : Next in one year Dr Sophie newman 07/31/2023 Smoker 62496562 F17.200 Advised to quit smoking! LDCT 09/28/2021 : Emphysema, CADLDCT 06/14/2023 : Next in one year Coronary arteriosclerosis 93847172 I25.10 Seen on LDCT, get a referral to cardiology Type 2 natan betes mellitus without complication 396024635 E11.9 On jardiance 25mg dailyOn metformin 500mg bid, will d/c this also as she has noted some low sugars and A1C is stable on 07/05/2023 Off the [employer] labs Essential hypertension 96496385 I10 On lisinopril 2.5mg daily Hyperlipidemia 55700895 E78.5 On atorvastat in 40mg dailyDiet and exercise is neededGet labs Serum johny min B12 below reference range 550746551 R79.89 Get on B12 weekly for 4 weeks and then monthly for 3 months and repeat the labs Vitamin D deficiency 347 20407 E55.9 Gastroesop hageal reflux disease without esophagitis 545324041 K21.9 On omeprazole Get an EGD done Malignant neoplasm of urinary bladder 746480853 C67.9 Dr Rodríguez urologyS/p surgeryNow has cath and bag Nausea 264847931 R11.0 On zorfran PRN Low back pain 487871419 M54.50 Get xrays, may need to see pain management Xrays notd 06/14/2023 Screening for malignant neoplasm of colon 947838000 Z12.11 Hyperkalemia 67664392 E8 7.5 Repeat the labs Proteinuria 35044538 R80 .9 Thrombocytosis 7912453 D 75.839 Repeat the labs Hypothyroidism 47852590 E03.9 Get US thyroid and repeat the labsMay need to be on synthroid [id number] Christine Barrios MD [facility] Pul[facility] [place] [address] [place] [address], [facility] 15 [place] [address] 07/31/2023 10:53:34 08/01/2023 09:00:04 Solitary nodule of lung 496827412 R91.1 Chronic cough 30193423 R 05.3 R06.00 T78.40XA D89.9 [id number] Gaby Stout MD [facility] E[facility] [place] [address] [place] [address] 09/28/2023 11:28:55 09/29/2023 10:51:01 Thyroid nodule 609161684 E04.1 [id number] Terence stapleton MD [facility] Internal Med [facility] [address] [facility], [facility] 15 [place] [address] 10/12/2023 14:59:09 10/12/2023 16:08:46 Screening - NAD 428065468 Z13.9 C-scope: cologuard was ordered 11/07/2022 , should do a c-scope and referral provided Mammogram: 09/28/2021 : NegMammogr am: 024: Neg Dexa: 09/28/2021 : Osteoporos is, on fosamax, take ca and vit d also PAP: Needs to see OB Get yearly flu shot, get tdap if not doneUTD on PCV #20Get shingrixCa n do COVID 19 vaccine and its boostersGe t RSV vaccine RTC in 3 months, do labs, she and her daughter verbalized her understand ing of the above Gynecologi c examination 01683333 Z01.419 Chronic ob structive pulmonary disease 25986241 J44.9 LDCT 06/14/2023 : Next in one year Dr Barrios apt 07/31/2023 Smoker 84483646 F17.200 Advised to quit smoking! LDCT 09/28/2021 : Emphysema, CADLDCT 06/14/2023 : Next in one year Coronary arteriosclerosis 09456581 I25.10 ECHO 07/27/2023 : EF 55%Stress test 09/29/2023 : Negative Dr Graf 2023 : Next apt in 3 months Type 2 natan betes mellitus without complication 659904833 E11.9 On jardiance 25mg dailyOn metformin 500mg bid, will d/c this also as she has noted some low sugars and A1C is stable on 07/05/2023 Off the victozaGet labs Essential hypertension 97129983 I10 On lisinopril 2.5mg daily Hyperlipidemia 83485302 E78.5 On atorvastat in 40mg dailyDiet and exercise is neededGet labs Serum johny min B12 below reference range 573587959 R79.89 Repeat the labs Vitamin D deficiency 347 28846 E55.9 Gastroesop hageal reflux disease without esophagitis 088655832 K21.9 On omeprazole Get an EGD done Malignant neoplasm of urinary bladder 644596067 C67.9 Dr Rodríguez urologyS/p surgeryNow has cath and bag Nausea 633153232 R11.0 On zorfran PRN Low back pain 934745937 M54.50 Get xrays, may need to see pain management Xrays notd 06/14/2023 Screening for malignant neoplasm of colon 953541158 Z12.11 Hyperkalemia 08661910 E8 7.5 Repeat the labs Proteinuria 16856419 R80 .[address] Eligio Sanchez calcitriol On VIT DOn fosamax Thrombocytosis 3629400 D 75.839 Repeat the labs Hypothyroidism 18100554 E03.9 US thyroid 08/10/2023 : Get FNACGet on synthroid Adult heal th examination 415447017 Z00.00 Screening for disorder 024060004 Z13.9 Thyroid nodule 036277853 E04.1 Dr Stout 09/28/2023 to get FNAC [id number] Terence stapleton MD [facility] [address] [facility] [place] [address] 02/15/2024 15:12:37 02/15/2024 16:04:44 Chronic obstructive pulmonary disease 62679860 J44.9 LDCT 06/14/2023 : Next in one year Dr Barrios apt 07/31/2023 Screening - NAD 24899270 3 Z13.9 C-scope: cologuard was ordered 11/07/2022 , should do a c-scope and referral provided Mammogram: 09/28/2021 : NegMammogr am: 024: Neg Dexa: 09/28/2021 : Osteoporos is, on fosamax, take ca and vit d also PAP: Needs to see OB Get yearly flu shot, get tdap if not doneUTD on PCV #20Get shingrixCa n do COVID 19 vaccine and its boostersGe t RSV vaccine RTC in 3 months, do labs, she and her daughter verbalized her understand ing of the above Gynecologi c examination 75010180 Z01.419 Smoker 40556419 F17.200 Advised to quit smoking! LDCT 09/28/2021 : Emphysema, CADLDCT 06/14/2023 : Next in one year Coronary arteriosclerosis 88470471 I25.10 ECHO 07/27/2023 : EF 55%Stress test 09/29/2023 : Negative Dr Graf 2023 : Next apt in 3 months Type 2 natan betes mellitus without complication 965086724 E11.9 On jardiance 25mg dailyOn metformin 500mg bid, was told d/c this also as she has noted some low sugars and A1C was stable on 07/05/2023 , however she is still taking thisOff the victozaGet labs Essential hypertension 65704070 I10 On lisinopril 2.5mg daily Hyperlipidemia 85480052 E78.5 On atorvastat in 40mg dailyDiet and exercise is neededGet labs Serum johny min B12 below reference range 021735029 R79.89 Repeat the labs Vitamin D deficiency 347 44588 E55.9 Gastroesop hageal reflux disease without esophagitis 375176121 K21.9 On omeprazole Get an EGD done Malignant neoplasm of urinary bladder 330769046 C67.9 Dr Rodríguez urologyS/p surgeryNow has cath and bag Nausea 086274933 R11.0 On zorfran PRN Low back pain 006629986 M54.50 Get xrays, may need to see pain management Xrays notd 06/14/2023 Screening for malignant neoplasm of colon 212254322 Z12.11 Proteinuria 89767503 R80 .[address] Eligio Sanchez calcitriol On VIT DOn fosamax Thrombocytosis 0324076 D 75.839 Repeat the labs Hypothyroidism 93831250 E03.9 US thyroid 08/10/2023 : Get FNACS/p bx: Neg 12/27/[address] Pineda et labs Screening for osteoporosis 282448498 Z13.820 Administra tion of influenza vaccine 19614591 Z23 [id number] Terence stapleton MD [facility] [address] [facility], [address] [place] [address] 06/13/2024 15:05:05 06/13/2024 16:32:42 Chronic obstructive pulmonary disease 57370212 J44.9 LDCT 06/14/2023 : Next in one year Dr Sophie newman 07/31/2023 Screening - NAD 88790540 3 Z13.9 C-scope: cologuard was ordered 11/07/2022 , should do a c-scope and referral provided Mammogram: 09/28/2021 : NegMammogr am: 024: Neg Dexa: 09/28/2021 : Osteoporos is, on fosamax, take ca and vit d also PAP: Needs to see OB Get yearly flu shot, get tdap if not doneUTD on PCV #20Get shingrixCa n do COVID 19 vaccine and its boostersGe t RSV vaccine RTC in 3 months, do labs, she and her daughter verbalized her understand ing of the above Gynecologi c examination 69872009 Z01.419 Smoker 72691653 F17.200 Advised to quit smoking! LDCT 09/28/2021 : Emphysema, CADLDCT 06/14/2023 : Next in one year Coronary arteriosclerosis 62435432 I25.10 ECHO 07/27/2023 : EF 55%Stress test 09/29/2023 : Negative Dr Graf 2023 : Next apt in 3 months Type 2 natan betes mellitus without complication 336823899 E11.9 On jardiance 10mg dailyOn metformin 500mg bid, was told d/c this also as she has noted some low sugars and A1C was stable on 07/05/2023 , however she is still taking thisOff the LawPalzaMailInBlack labsMore diet and exercise Essential hypertension 78036276 I10 On lisinopril 2.5mg daily Hyperlipidemia 79454247 E78.5 On atorvastat in 40mg dailyDiet and exercise is neededGet labs Serum johny min B12 below reference range 994477026 R79.89 Repeat the labs Vitamin D deficiency 347 39582 E55.9 Gastroesop hageal reflux disease without esophagitis 435040515 K21.9 On omeprazole Get an EGD done Malignant neoplasm of urinary bladder 622198598 C67.9 Dr Rodríguez urologyS/p surgeryNow has cath and bag Nausea 609701859 R11.0 On zorfran PRN Low back pain 874818740 M54.50 Get xrays, may need to see pain management Xrays notd 06/14/2023 Screening for malignant neoplasm of colon 531828722 Z12.11 Proteinuria 72021990 R80 .[address] Eligio Sanchez calcitriol On VIT DOn fosamax Thrombocytosis 7891005 D 75.839 Repeat the labsAlso refer to hematology Hypothyroidism 92332494 E03.9 US thyroid 08/10/2023 : Get FNACS/p bx: Neg 12/27/[address] Pineda et labs Screening for osteoporosis 916864698 Z13.820 Screening mammography 24 670367 Z12.31 Cigarette smoker 5473281 7 F17.210 Health Concerns Section Related Observation LastModified by Organization Detai ls LastModified Time None Recorded Concern Status LastModified by Organization Details LastModified Time None Recorded Advance Directives Directive N: Patient given information . Payers Encounter Date Sequence Insurance Name Policy Number Policy Terry Covered Member ID Terry Member ID Guarantor Name 07/31/2023 1 [facility] (MEDICARE REPLACEMENT/A DVANTAGE - PPO) [id number] Dea Perez [id number] Dea Perez 07/31/2023 2 [place] [facility] Dea Perez [id number] Dea Perez 09/28/2023 1 [facility] (MEDICARE REPLACEMENT/A DVANTAGE - PPO) [id number] Dea Perez [id number] Dea Perez 09/28/2023 2 [place] [facility] Dea Perez [id number] Dea Perez 10/12/2023 1 [facility] (MEDICARE REPLACEMENT/A DVANTAGE - PPO) [id number] Dea Castroinger [id number] Dea Castroinger 10/12/2023 2 [place] [employer] [place] [employer] Dea Castroinger [id number] Dea Castroinger 02/15/2024 1 [facility] (MEDICARE REPLACEMENT/A DVANTAGE - PPO) [id number] Dea Castroinger [id number] Dea Castroinger 02/15/2024 2 [place] [employer] [place] [employer] Dea Castroinger [id number] Dea Castroinger 06/13/2024 1 [facility] (MEDICARE REPLACEMENT/A DVANTAGE - PPO) [id number] Dea Castroinger [id number] Dea Castroinger 06/13/2024 2 [place] [facility] Dea Perez [id number] Dea Perez Notes Date Note Type Note Provider Name and Address Organization Details Recorded Time 07/31/2023 text/html Primary care/Ref erring provider: Terence Barber MD CC: I have an abnormal chest CT. Patient is here to go over cough evaluation and management. Initial development of cough: 2013 Duration of cough: 10 years Nature of cough: productive of clear sputum Condition of cough: worsening Timing of cough: night > day Frequency: up to 5 times a day Limits activities: yes Aggravating factors: walking briskly, stretching Alleviating factors: resting Treatment history:None Other symptoms: Drooling: no Dysarthria: no Neck pain: no Odynophagia: no Dysphagia: no Weak mastication: no Facial weakness: no Nasal speech: no Protruding tongue: no Wheezing: no Chest tightness: yes Orthopnea: no Frequent throat clearing or swallowing: no Palpitations: no Heartburn: no Edema: no Modified [employer] [place] ([employer]) Dyspnea Scale - Grade 1 Grade 0 I only get breathless with strenuous exercise . Grade 1 I get short of breath when hurrying on the level or walking up a slight hill . Grade 2 I walk slower than people of the same age on the level because of breathlessness or have to stop for breath when walking at my own pace on the level . Grade 3 I stop for breath after walking about 100 yards or after a few minutes on the level . Grade 4 I am too breathless to leave the house or I am breathless when dressing . Environmental exposures: Nicotine smoke: 1.5 ppd 1976-present (quit 2 years in between) 69 pack years [place]ling: no Dye: no Dust mites: yes Mold: no Damp basement: no Wood burning stove: no Animal dander: dogs Cockroaches: no Pollen: yes Arsenic: no Asbestos: no Beryllium: no Cadmium: no Chromium: no [place] smoke: no Diesel fumes: no Nickel: no Silica: no Soot: no EPWORTH SLEEPINESS SCALE (ESS) CHANCE OF DOZING SCORE 0 = would never doze 1 = slight chance of dozing 2 = moderate chance of dozing 3 = high chance of dozing SITUATION AND CHANCE OF DOZING Sitting and reading - 0 Watching television - 1 Sitting inactive in a public place (e.g. a theater or meeting) - 0 As a passenger in a car for an hour without a break - 0 Lying down to rest in the afternoon when circumstances permit - 2 Sitting and talking to someone - 0 Sitting quietly after lunch without alcohol - 0 In a car, while stopped for a few minutes in the traffic - 0 TOTAL SCORE 3 Subjectively, patient has a slight chance of dozing. Christine Barrios MD [address], [place], [address], [employer] 07/31/2023 12:00:36 09/28/2023 text/html this patient had a thyroid ultrasound due to hypothyroidism. She was found to have 3 nodules on her right and 1 nodule on the left lobe of the thyroid. The nodules were TI-RADS 4 and the largest nodule was 2.1 cm on the right side and a needle biopsy was recommended. Her sister also has hypothyroidism. Gaby Stout MD [address], [place], [address], [employer] 09/28/2023 17:00:11 10/12/2023 text/html OV 04/20/2023: H ere to establish care Past Hx:HTNHLDDMIIGERDS/p bladder surgerySmokerCOPD Reviewed social family and surgical history Here to discuss above, get labs, also c/o LBP since her bladder surgery, no N/T or weakness in the legs, no loss of bowel or bladder control, she would also like a referral to nephrology OV 10/12/2023: Here for her f/u apt, she has been non compliant with her visits, she did do the labs on 08/28/2023, she is doing well, she is here with her daughter Joyce Barber MD [address] [facility], [facility] [address], [place], [address], [facility] Kasenna [facility] 10/12/2023 16:33:38 02/15/2024 text/html OV 04/20/2023: H ere to establish care Past Hx:HTNHLDDMIIGERDS/p bladder surgerySmokerCOPD Reviewed social family and surgical history Here to discuss above, get labs, also c/o LBP since her bladder surgery, no N/T or weakness in the legs, no loss of bowel or bladder control, she would also like a referral to nephrology OV 10/12/2023: Here for her f/u apt, she has been non compliant with her visits, she did do the labs on 08/28/2023, she is doing well, she is here with her daughter Joyce OV 02/15/2024: Here for her f/u apt, she is doing well today, she is still to do the labs, she is here with Joyce Barber MD [address] [facility], [facility] [address], [place], [address], [facility] Kasenna [facility] 02/19/2024 18:30:08 06/13/2024 text/html OV 04/20/2023: H ere to establish care Past Hx:HTNHLDDMIIGERDS/p bladder surgerySmokerCOPD Reviewed social family and surgical history Here to discuss above, get labs, also c/o LBP since her bladder surgery, no N/T or weakness in the legs, no loss of bowel or bladder control, she would also like a referral to nephrology OV 10/12/2023: Here for her f/u apt, she has been non compliant with her visits, she did do the labs on 08/28/2023, she is doing well, she is here with her daughter Joyce OV 02/15/2024: Here for her f/u apt, she is doing well today, she is still to do the labs, she is here with Joyce ECHOLS 06/13/2024: Here for her f/u apt, she is doing well today, she has done the labs but these are not yet reported Terence Barber MD [address] [place] [address], [facility] [address], [place], [address], [place] [facility] 06/13/2024 18:30:21 OBGyn Episode No OBEpisode recorded.
--- OUTSIDE RECORDS SUMMARY | 2024-08-17 10:23 | XMS_ITS | Data Portability ---
Author Organization [facility] TAY[facility] Ann [facility] Address [address] [place] [address] Assessment No assessment recorded. Plan of Treatment Reminders Order Date Submit Date Provider Last Modified By Organization Details Last Modified Time Details Appointments None recorded. Lab culture, urine 2017 018 CHITO MIK, [address] [place] [address], [address], [place], [address], 8 15:15:41 HbA1c (hemoglobi n A1c), blood 2017 018 CHITO MIK, [address] [place] [address], [address], [place], [address], 8 13:11:53 CMP, serum or plasma 2017 018 CHITO MIK, [address] [place] [address], [address], [place], [address], 8 13:11:52 lipid panel, serum 2017 018 CHITO LABTITA, [address] [place] [address], [address], [place], [address], 8 13:11:53 microalbum in, urine 2017 018 CHITO MIK, [address] [place] [address], [address], [place], [address], 8 13:11:54 TSH + free T4, serum 2017 018 [facility], [address], [address], [place], [address], 8 13:11:52 Referral diabetic ophthalmol ogy referral - Please call patient to schedule appt. Thank you 2017 018 [email or web address] Jamey Dewitt MD, [address], [place], [address], 8 17:02:12 urologist referral - Please call patient to schedule appt. Thank you 2017 018 [email or web address] Not available 8 10:38:52 Procedures None recorded. Surgeries None recorded. Imaging LDCT, chest, for lung cancer screening 2017 018 [facility] ([facility]), [address] [facility], [place], [address], 8 15:52:43 Medication Orders phenazopyr idine 200 mg tablet 2017 018 [email or web address] [id number], [address], [place], [address], 8 16:12:34 ciprofloxa ginny 500 mg tablet 2017 018 [email or web address] 6 [id number], [address], [place], [address], 8 16:12:34 Chantix Starting Month Box 0.5 mg (11)-1 mg (42) tablets in dose pack 2017 018 [email or web address] Not available 8 16:12:34 Blood Glucose Test strips 2017 018 INTERFACE [id number], [address], [place], [address], 8 16:13:29 metformin 500 mg tablet 2017 018 [id number], [address], [place], [address], 8 12:21:37 alcohol swabs 2017 018 [id number], [address], [place], [address], 8 12:21:36 atorvastat in 10 mg tablet 2017 018 [id number], [address], [place], [address], 8 12:21:36 Patient TargetsNo targets recorded. Patient InstructionsNo instructions recorded. Reason for Referral Urologist Referral for Histo ry of malignant neoplasm of bladder Hx Bladder cancer Please call patient to schedule appt. Thank you Referring Physician: Giovany Mcguire, Internal Medicine, Encounter Date: 09/04/2017 Diabetic Ophthalmology Refer ral for Type 2 diabetes mellitus DM type II Please call patient to schedule appt. Thank you Referring Physician: Giovany Mcguire, Internal Medicine, Encounter Date: 09/04/2017 Results Created Date Observation Date Name Description Value Unit Range Abnormal Flag Note LastModifiedBy Organization Detail LastModifiedTime 09/06/19 18 09/06/2017 TSH + free T4, serum TSH 1.720 uIU/m L 0.450- 4.500 Not Available [facility] ([facility]) [address] [place], [address], 09/06/2017 13:11:52 09/06/19 18 09/06/2017 TSH + free T4, serum T4,free(dire ct) 1.00 NG/dL 0.82-1 .77 Not Available [facility] ([facility]) [address] [place], [address], 09/06/2017 13:11:52 09/06/19 18 09/06/2017 CMP, serum or plasm a glucose 161 mg/dL 65-99 above high normal Not Available [facility] ([facility]) [address] [facility], [place], [address], 09/06/2017 13:11:52 09/06/19 18 09/06/2017 CMP, serum or plasm a BUN 11 mg/dL 8-27 Not Available [facility] ([facility]) [address] [place], [address], 09/06/2017 13:11:52 09/06/19 18 09/06/2017 CMP, serum or plasm a creatinine 0.73 mg/dL 0.57-1 .00 Not Available [facility] ([facility]) [address] [facility], [place], [address], 09/06/2017 13:11:52 09/06/19 18 09/06/2017 CMP, serum or plasm a eGFR if nonafricn AM 89 mL/mi n/1.7 3 >59 Not Available [facility] ([facility]) [address] [facility], [place], [address], 09/06/2017 13:11:52 09/06/19 18 09/06/2017 CMP, serum or plasm a eGFR if africn AM 102 mL/mi n/1.7 3 >59 Not Available [facility] ([facility]) [address] [facility], [place], [address], 09/06/2017 13:11:52 09/06/19 18 09/06/2017 CMP, serum or plasm a BUN/creatini ne ratio 15 12-28 Not Available [facility] ([facility]) [address] [place], [address], 09/06/2017 13:11:52 09/06/19 18 09/06/2017 CMP, serum or plasm a sodium 141 mmol/ L 134-14 4 Not Available [facility] ([facility]) [address] [place], [address], 09/06/2017 13:11:52 09/06/19 18 09/06/2017 CMP, serum or plasm a potassium 4.7 mmol/ L 3.5-5. 2 Not Available [facility] ([facility]) [address] [place], [address], 09/06/2017 13:11:52 09/06/19 18 09/06/2017 CMP, serum or plasm a chloride 104 mmol/ L 96-106 Not Available [facility] ([facility]) [address] [place], [address], 09/06/2017 13:11:52 09/06/19 18 09/06/2017 CMP, serum or plasm a carbon dioxide, total 20 mmol/ L 18-29 Not Available [facility] ([facility]) [address] [place], [address], 09/06/2017 13:11:52 09/06/19 18 09/06/2017 CMP, serum or plasm a calcium 9.9 mg/dL 8.7-10 .3 Not Available [facility] ([facility]) [address] [place], [address], 09/06/2017 13:11:52 09/06/19 18 09/06/2017 CMP, serum or plasm a protein, total 7.3 g/dL 6.0-8. 5 Not Available [facility] ([facility]) [address] [place], [address], 09/06/2017 13:11:52 09/06/19 18 09/06/2017 CMP, serum or plasm a albumin 4.5 g/dL 3.6-4. 8 Not Available [facility] ([facility]) [address] [place], [address], 09/06/2017 13:11:52 09/06/19 18 09/06/2017 CMP, serum or plasm a globulin, total 2.8 g/dL 1.5-4. 5 Not Available [facility] ([facility]) [address] [place], [address], 09/06/2017 13:11:52 09/06/19 18 09/06/2017 CMP, serum or plasm a A/G ratio 1.6 1.2-2. 2 Not Available [facility] ([facility]) [address] [facility] [place], [address], 09/06/2017 13:11:52 09/06/19 18 09/06/2017 CMP, serum or plasm a bilirubin, total 0.2 mg/dL 0.0-1. 2 Not Available [facility] ([facility]) [address] [facility] [place], [address], 09/06/2017 13:11:52 09/06/19 18 09/06/2017 CMP, serum or plasm a alkaline phosphatase 102 IU/L 39-117 Not Available [facility]) [address] [place], [address], 09/06/2017 13:11:52 09/06/19 18 09/06/2017 CMP, serum or plasm a AST (SGOT) 14 IU/L 0-40 Not Available [facility] ([facility]) [address] [facility] [place], [address], 09/06/2017 13:11:52 09/06/19 18 09/06/2017 CMP, serum or plasm a ALT (SGPT) 17 IU/L 0-32 Not Available [facility] ([facility]) [address] [place], [address], 09/06/2017 13:11:52 09/06/19 18 09/06/2017 lipid panel , serum cholesterol, total 251 mg/dL 100-19 9 above high normal Not Available [facility] ([facility]) [address] [facility] [place], [address], 09/06/2017 13:11:53 09/06/19 18 09/06/2017 lipid panel , serum triglyceride s 334 mg/dL 0-149 above high normal Not Available [facility] ([facility]) [address] [place], [address], 09/06/2017 13:11:53 09/06/19 18 09/06/2017 lipid panel , serum HDL cholesterol 27 mg/dL >39 below low normal Not Available [facility] ([facility]) [address] [place], [address], 09/06/2017 13:11:53 09/06/19 18 09/06/2017 lipid panel , serum VLDL cholesterol marian 67 mg/dL 5-40 above high normal Not Available [facility] ([facility]) [address] [place], [address], 09/06/2017 13:11:53 09/06/19 18 09/06/2017 lipid panel , serum LDL cholesterol calc 157 mg/dL 0-99 above high normal Not Available [facility] ([facility]) [address] [place], [address], 09/06/2017 13:11:53 09/06/19 18 09/06/2017 lipid panel , serum comment: 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 2 above high normal LDL/H DL Ratio Men Women 1/2 Avg.R isk 1.0 1.5 Avg.R isk 3.6 3.2 2X Avg.R isk 6.2 5.0 3X Avg.R isk 8.0 6.1 Not Available [facility] ([facility]) [address] [place], [address], 09/06/2017 13:11:53 09/06/19 18 09/06/2017 HbA1c (hemo globi n A1c), blood hemoglobin A1C 7.3 % 4.8-5. 6 above high normal Pre-d iabet es: 5.7 - 6.4 Diabe dick: >6.4 Glyce escobar contr ol for adult s with diabe dick: <7.0 Not Available [facility] ([facility]) [address] [facility], [place], [address], 09/06/2017 13:11:53 09/06/19 18 09/06/2017 micro album in, urine albumin, urine 17.0 ug/mL not estab. Not Available [facility] ([facility]) [address] [facility], [place], [address], 09/06/2017 13:11:54 09/06/19 18 09/06/2017 diabe dick patie nt educa tion pdf image . Not Available [facility] ([facility]) [address] [facility], [place], [address], 09/06/2017 13:11:54 02/13/20 18 02/16/2018 cultu re, urine urine culture,comp rehensive Final report abnormal Not Available [facility] ([facility]) [address] [facility], [place], [address], 02/16/2018 15:15:41 02/13/20 18 02/16/2018 cultu re, urine result 1 Commen t abnormal Coagu lase negat hoang Staph yloco ccus speci es, not Staph yloco ccus sapro phyti cus. Great er than 100,0 00 colon y formi ng units per mL Based on susce ptibi lity to oxaci llin this isola te would be susce ptibl e to: *Peni cilli nase- stabl e penic illin s, such as: Cloxa cilli n, Diclo xacil ruel, Nafci llin *Beta -lact am combi natio n agent s, such as: Amoxi cilli n-cla vulan ic acid, Ampic illin -sulb actam , Piper acill in-ta zobac ruvalcaba *Oral cephe ms, such as: Cefac jose carlos, Cefdi brenda, Cefpo doxim e, Cefpr ozil, Cefur oxime , Cepha lexin , Lorac arbef *Pare ntera l cephe ms, such as: Cefaz raul, Cefep gadiel, Cefot axime , Cefot denise, Cefta rolin e, Cefti zoxim e, Ceftr iaxon e, Cefur oxime *Carb apene ms, such as: Dorip enem, Ertap enem, Imipe nem, Merop enem Not Available [facility] ([facility]) [address] [facility], [place], [address], 02/16/2018 15:15:41 02/13/20 18 02/16/2018 cultu re, urine antimicrobia l susceptibili ty Commen t S = Susce ptibl e; I = Inter media te; R = Resis tant P = Posit hoang; N = Negat hoang MICS are expre ssed in micro grams per mL Antib iotic RSLT# 1 RSLT# 2 RSLT# 3 RSLT# 4 Cipro floxa ginny R Genta micin S Levof loxac in R Linez olid S Nitro furan toin S Oxaci llin S Penic illin R Quinu prist in/Da lfopr istin S Rifam pin S Tetra cycli ne S Trime thopr im/Jones lfa R Vanco mycin S Not Available [facility] ([facility]) [address] [facility], [place], [address], 02/16/2018 15:15:41 09/30/19 18 09/29/2017 LDCT, chest , for lung cance r scree brennon No observ ation record ed. [address] ([facility]) [address] [place], [address], 10/17/2017 15:52:44 12/01/19 18 11/30/2017 CT, abdom en + pelvi s, w/wo contr ast No observ ation record ed. [address] (Imaging) [address] [place], [address], 12/13/2017 23:45:03 Result Notes None recorded. Problems Name Problem SNOMED Code Status Onset Date Resolution Date Notes Provider Name and Address Organization Details Recorded Time Type 2 diabetes mellitus 90039887 Active 2017 Giovany Mcguire MD Attn: Denysvika yun,[address] [facility], [place], [address], [place] - [facility] 8 12:04:04 Hyperlipide ritchie 84329299 Active 2017 Giovany Mcguire MD Attn: Adelaida court,[address] [facility], [place], [address], [place] - [facility] 8 12:05:02 History of malignant neoplasm of bladder 787924095 Active 2017 Giovany Mcguire MD Attn: Adelaida yun,[address] [facility], [place], [address], [place] - [facility] 8 12:05:38 Tobacco user 800701400 Active 2017 Giovany Mcguire MD Attn: Adelaida yun,[address] [facility], [place], [address], [place] - [facility] 8 12:06:02 Former heavy tobacco smoker 5641476177346 00 Active 2017 Giovany Mcguire MD Attn: Adelaida yun,[address] [facility], [place], [address], [place] - [facility] 8 16:04:30 Steatosis of liver 423236639 Active 2017 Giovany Mcguire MD Attn: Adelaida yun,[address] [facility], [place], [address], [place] - [facility] 8 15:53:44 Dysuria 63453312 Active 2017 Albert Alexander PA-C Attn: Adelaida yun,[address] [facility], [place], [address], [place] - [facility] 8 16:06:20 Acute urinary tract infection 749238752 Active 2017 Albert Alexander PA-C Attn: Adelaida yun,[address], [place], [address], [facility] 8 17:24:44 Problem Notes None recorded. Procedures Surgical History Date Name Laterality Status Provider Name and Address Organization Details Recorded Time Total hysterectomy completed Kalani Crowley MA [place] - [facility] 09/04/2017 11:17:28 Imaging Results Imaging Date Name Status LastModified by Organiz ation Details LastModified Time 09/29/2017 LDCT, chest, for lung cancer screening completed [address] ([facility]) [address] [place], [address], 10/17/2017 15:52:44 11/30/2017 CT, abdomen + pelvis, w/wo contrast completed [address] (Imaging) [address] [place], [address], 12/13/2017 23:45:03 Procedure Notes None recorded. Medical Equipment None Reported. Allergies No known drug allergies Medications Name Sig Start Date Stop Date Status Note LastModified by Organization Details LastModified Time metformin 500 mg tablet TAKE 1 TABLET BY MOUTH EVERY DAY active Not Available Not Available No t Available atorvastatin 10 mg tablet TAKE 1 TABLET BY MOUTH EVERY DAY active Not Available Not Available No t Available hydrocodone 5 mg-acetaminoph en 325 mg tablet active Not Available Not Available Not Available phenazopyridin e 200 mg tablet Take 1 tablet 3 times a day by oral route for 2 days. 2017 active Not Available Not Available Not Avai lable ciprofloxacin 500 mg tablet Take 1 tablet every 12 hours by oral route for 10 days. 2017 active Not Available Not Available Not Avai lable hydrocodone 10 mg-acetaminoph en 325 mg tablet active Not Available Not Available Not Available alcohol swabs Use one daily 2017 active Not Available Not Available Not Avai lable levofloxacin 500 mg tablet active Not Available Not Availabl e Not Available nitrofurantoin monohydrate/ma crocrystals 100 mg capsule Take 1 capsule twice a day by oral route for 10 days. 2017 active Not Available Not Available Not Avai lable Chantix Continuing Month Box 1 mg tablet TAKE DIRECTED PER INSIDE PACKETQ 2018 active Not Available Not Available Not Avai lable Chantix Starting Month Box 0.5 mg (11)-1 mg (42) tablets in dose pack Take 1 startr pk by oral route for 30 days. 2017 active Not Available Not Available Not Avai lable Janumet XR 100 mg-1,000 mg tablet,extende d release Take 1 tablet every day by oral route. active Not Available Not Available No t Available lancets 33 gauge USE TO TEST ONCE DAILY active Not Available Not Available No t Available True Metrix Glucose Test Strip USE TO TEST ONCE DAILY 2018 active Not Available Not Available Not Avai lable OneTouch Ultra Blue Test Strip active Not Available Not Available Not Available Vitals Date Recorded Body height Body mass index (BMI) Body weight Body temperature Heart rate Oxygen saturation Oxygen saturation in Arterial blood by Pulse oximetry Systolic blood pressure Diastolic blood pressure Provider Name and Address Organization Details Last Updated DateTime 8 167.64 cm 24.1 kg/m2 22301.7 g 98 [degF] 76 /min 97 % 97 % 118 mm[Hg] 78 mm[Hg] Kalani Crowley MA [facility] 8 11:21:51 Date Recorded Body height Body mass index (BMI) Body weight Body temperature Oxygen saturation Oxygen saturation in Arterial blood by Pulse oximetry Heart rate Systolic blood pressure Diastolic blood pressure Provider Name and Address Organization Details Last Updated DateTime 8 167.64 cm 23.6 kg/m2 27262.4 9 g 98.1 [degF] 96 % 96 % 88 /min 110 mm[Hg] 74 mm[Hg] Kalani Crowley MA [facility] 8 15:32:54 Date Recorded Body height Body mass index (BMI) Body weight Oxygen saturation Oxygen saturation in Arterial blood by Pulse oximetry Heart rate Body temperature Systolic blood pressure Diastolic blood pressure Provider Name and Address Organization Details Last Updated DateTime 8 167.64 cm 24.2 kg/m2 51510.8 6 g 96 % 96 % 91 /min 97.9 [degF] 124 mm[Hg] 68 mm[Hg] Gris Rose MA [facility] 8 15:51:32 Social History Question Answer Notes LastModified by Organizat ion Details LastModified Time Tobacco Smoking Status Current Every Day Smoker Kalani Crowley MA [facility], [place] - [facility] 09/04/2017 11:17:00 What Was The Date Of Your Most Recent Tobacco Screening? 02/12/2018 Information n ot available 12/13/2018 How Much Tobacco Do You Smoke? 1 PPD [email or web address] Information not available 02/12/2018 How Many Years Have You Smoked Tobacco? 30 [email or web address] Information not available 09/04/2017 Sex: Unknown Functional Status None recorded. Mental Status None recorded. Family History Relationship Description Onset Age of this Age Resolved Age Notes LastModified by Organization Details LastModified Time Mother Diabetes mellitus [email or web address] Not available 2017 11:16:50 Father Hypertensive disorder [email or web address] Not available 2017 11:16:56 Medical History Condition Response Diabetes Y Liver Disease Y Cancer Y Kidney or Bladder Problems Y High Cholesterol Y Gynecological HistoryNo gynecological history recorded. Obstetrics History GPAL:G 4 P 3 0 1 3 Type Value Full Term 3 Spontaneous 1 Living 3 Total 4 Past Encounters Encounter ID Performer Location Encounter Start Date Encounter Closed Date Diagnosis/Indication Diagnosis SNOMED-CT Code Diagnosis ICD10 Code Diagnosis Note [id number] [facility] [address] [place] [address] 09/04/2017 10:50:53 09/04/2017 12:32:16 Type 2 diabetes mellitus 86013031 E11.9 BS seem OK off meds x 3 mths. Restart with metformin alone. Pt to call with FBS in 2 weeks Hyperlipidemia 00483512 E78.5 History of malignant neoplasm of bladder 814130682 Z85.51 Tobacco user 586878938 Z 72.0 [id number] [facility] [address] [place] [address] 10/17/2017 14:52:16 10/17/2017 16:00:58 Type 2 diabetes mellitus 31229321 E11.9 BS seem OK off meds x 3 mths. Restart with metformin alone. Pt to call with FBS in 2 weeks Hyperlipidemia 09903098 E78.5 History of malignant neoplasm of bladder 411747847 Z85.51 [id number] [facility] Fla[facility] (Adult Med) [address] [place] [address] 02/12/2018 15:28:09 02/12/2018 16:16:50 Dysuria 22030596 R30.0 Tobacco user 714515412 Z 72.0 Type 2 natan betes mellitus 11292301 E11.9 Health Concerns Section Related Observation LastModified by Organization Detai ls LastModified Time None Recorded Concern Status LastModified by Organization Details LastModified Time None Recorded Advance Directives Directive None Recorded Payers Encounter Date Sequence Insurance Name Policy Number Policy Terry Covered Member ID Terry Member ID Guarantor Name 09/04/2017 2 [place] [employer] [place] [employer] Dea Perez [id number] Dea Perez 10/17/2017 2 [place] [facility] Dea Perez [id number] Dea Perez 10/17/2017 1 [facility] PRIOR TO 11/19/2020 (MEDICAID REPLACEMENT - HMO) Dea Perez [id number] Dea Perez 02/12/2018 1 [facility] PRIOR TO 11/19/2020 (MEDICAID REPLACEMENT - HMO) Dea Perez [id number] Dea Perez Notes Date Note Type Note Provider Name and Address Organization Details Recorded Time 09/04/2017 text/html Changing physicians due to insurance. Giovany Mcguire MD Attn: Accounting,[address] [place], [address], [facility] 09/04/2017 12:31:09 10/17/2017 text/html has seen urologist. Scheduled for bladder examination(Small lesion seen on cystoscopy). FBs averaging 140 mg/dl Giovany Mcguire MD Attn: Accounting,[address] [place], [address], [facility] 10/17/2017 15:55:17 02/12/2018 text/html left cva tenderness , dysuria Albert Alexander PA-C Attn: Accounting,[address] [place], [address], [facility] 02/12/2018 22:23:05 OBGyn Episode No OBEpisode recorded.
--- OUTSIDE RECORDS SUMMARY | 2024-08-17 10:24 | XMS_ITS ---
Author Organization [facility] Address [address] [place] [address] Care Team Providers Care Color Repairer Name Role Phone Shubham Del Valle Unavailable [phone] Encounters Encounter Location Date Provider Diagnosis [place] [facility] [address] [facility] [address] [id number] 07/17/2024 Shubham Del Valle PLAN OF TREATMENT No Information Progress Notes * MARCY BARKEROB:[birth year] (69 yo F)Acc No.[id number]:07/17/2024 Progress Notes Patient: BINA BARKER Provider: MD GERARDO, Vince.Avery.C.P, F.A.S.N. :1955 Age:68 Y Sex:Female Date:07/17/2024 Address:[address] [place] [address] Subjective: * Chief Complaints: * * Medical History: Objective: Assessment: Plan: * Treatment: * Billing Information: * Visit Code: * Procedure Codes: * Sign off status: Pending * Provider: MD GERARDO, Vince.Avery.C.P, F.A.S.N. Date: 07/17/2024
--- OUTSIDE RECORDS SUMMARY | 2024-08-17 10:24 | XMS_ITS ---
Author Organization [facility] Address [address] [place] [address] Care Team Providers Care Machine Printer Hose Name Role Phone Eligio Shubham Unavailable [phone] PROBLEMS Problem Type ICD Code Onset Dates Problem Status W/U Status Risk SNOMED Code Notes Problem Type 2 diabetes mellitus without complications (E11.9) Active confirmed Type II diabetes mellitus without complication (478645428) Encounters Encounter Location Date Provider Diagnosis [facility] [place] [facility] [address] [place] [address] 05/08/2024 Shubham Del Valle Stage 3 chronic kidn ey disease N18.30 ; Type 2 diabetes mellitus without complications E11.9 ; Hypo-osmolality and hyponatremia E87.1 and Vitamin D deficiency, unspecified E55.9 ASSESSMENTS Encounter Date Diagnosis Assessment Notes Treatment Notes Treatment Clinical Notes Section Notes 05/08/2024 Stage 3 chronic kidney disease (ICD-10 - N18.30) 05/08/2024 Type 2 diabetes mellitus without complications (ICD-10 - E11.9) 05/08/2024 Hypo-osmolality and hyponatremia (ICD-10 - E87.1) 05/08/2024 Vitamin D deficiency, unspecified (ICD-10 - E55.9) PLAN OF TREATMENT No Information Progress Notes * MARCY BARKEROB:[birth year] (69 yo F)Acc No.[id number]:05/08/2024 Progress Notes Patient: BINA BARKER Provider: MD GERARDO, F.A.C.P, F.A.S.N. :1955 Age:68 Y Sex:Female Date:05/08/2024 Address:[address] [place] [address] Subjective: * Chief Complaints: * * Medical History: Objective: Assessment: * Assessment: 1. Stage 3 chronic kidney disease - N18.30 (Primary) 2. Type 2 diabetes mellitus without complications - E11.9 3. Hypo-osmolality and hyponatremia - E87.1 4. Vitamin D deficiency, unspecified - E55.9 Plan: * Treatment: * Billing Information: * Visit Code: 35724 Office Visit, Est Pt., Level 4. * Procedure Codes: * Sign off status: Pending * Provider: MD GERARDO, F.A.C.P, F.A.S.N. Date: 05/08/2024
== END 2024-08-17 10:19 | disposition home or self-care (01) ==
PROVIDERS: PCP Internal Medicine; Visit Provider Internal Medicine
DX: Z12.2 Encounter for screening for malignant neoplasm of respiratory organs (principal); F17.210 Nicotine dependence, cigarettes, uncomplicated
CPT/HCPCS: 71271

== ENCOUNTER 2024-09-05 09:49 | Outpatient (CLI) | payer MEDICARE, MEDICAID, SELFPAY ==
--- OUTSIDE RECORDS SUMMARY | 2024-09-05 10:35 | XMS_ITS ---
Author Organization [facility] Address [address] [place] [address] Care Team Providers Care Tube Coremaker Name Role Phone Eligio Shubham Unavailable [phone] PROBLEMS Problem Type ICD Code Onset Dates Problem Status W/U Status Risk SNOMED Code Notes Problem Chronic kidney disease, stage 3a (N18.31) Active confirmed Chronic kidney disease stage 3A (disorder) (533702803) Problem Edema, unspecified (R60.9) Active confirmed Edema (93988609) Problem Essential hypertension (I10) Active confirmed Essential hypertension (36520371) Problem Anxiety disorder, unspecified (F41.9) Active confirmed Anxiety disorde r (590913149) Problem Other proteinuria (R80.8) Active confirmed Proteinuria (66432967) Encounters Encounter Location Date Provider Diagnosis [facility] [address] [address] 08/11/2023 Shubham Del Valle Chronic kidney disease, [...] * Pasha PEREZOB:[birth year] (69 yo M)Acc No.[id number]:08/11/2023 Progress Notes Patient: Dea PEREZ Provider: MD GERARDO, Claire, F.A.S.N. :1955 Age:67 Y Sex:Male Date:08/11/2023 Address:[address] [place] [address] Subjective: * Chief Complaints: * * Medical History: Objective: Assessment: * Assessment: 1. Chronic kidney disease, stage 3a - N18.31 2. Edema, unspecified - R60.9 3. Essential hypertension - I10 4. Anxiety disorder, unspecified - F41.9 5. Other proteinuria - R80.8 Plan: * Treatment: * Billing Information: * Visit Code: 08759 Office Visit, New Pt., Level 5. * Procedure Codes: * Sign off status: Pending * Provider: MD GERARDO, VernellP, F.A.S.N. Date: 08/11/2023
--- OUTSIDE RECORDS SUMMARY | 2024-09-05 10:35 | XMS_ITS | Encounter Summary ---
Author Organization [email or web address] , [facility] Address [address] [facility] [place] [address] Phone Care Team Providers Care Risk Management Professional Name Role Phone Vnana Dave Primary Care Provider Unava ilable Reason for Visit * Reason Comments Med Refill Encounter Details Date Type Department Care Team (Late st Contact Info) Description 08/30/2023 Refill [place] [facility], [facility] [address] [facility] [address] [place] [address] João De Leon, [address] [facility] [address] [place] [address] Social History Tobacco Use Types [...] on filedocumented in this encounter Care Teams Risk Management Professional Relationship Specialty Start Date End Date Vanna Dave FNP-C PCP - General Nurse Practitioner 02/07/22 documented as of this encounter
--- OUTSIDE RECORDS SUMMARY | 2024-09-05 10:36 | XMS_ITS ---
Author Organization [facility] Address [address] [place] [address] Care Team Providers Care Museum Specialist Name Role Phone Tenzin Vanna WIGGINS-RESEARCH GENETICIST Primary Care Provider [phone] Active Problems Problem Noted Date Diagnosed Date Abscess 02/04/2023 DUSTIN (acute kidney injury) 01/26/2023 Abdominal pain, generalized 12/25/2022 Left flank pain 12/25/2022 Acute pyelonephritis 12/25/2022 Urinary tract infection without hematuria, site unspecified 12/25/2022 Malignant neoplasm of posterior wall of urinary bladder Current Treatment and Therapy Plans No current plan information found. Past Treatment and Therapy Plans No past plan information found. Lifetime Dose Tracking * Chemical Lifetime Dose Automatic Entry Manual Entr y Dose Length Product 1,336.45 mGy-cm 1,336.45 mGy-cm 0 mGy-cm
--- OUTSIDE RECORDS SUMMARY | 2024-09-05 10:36 | XMS_ITS | Clinical Summary ---
Author Organization [facility] Facility Address [address] [place] [address] Care Team Providers Care Construction Plant Operator Name Role Phone Tenzin Vanna [facility] [address] Primary Care Provider Unava ilable Medications atorvastatin (LIPITOR) 40 MG tablet TAKE 1 TABLET BY MOUTH EVERYDAY AT BEDTIME 90 tablet 04/05/2021 Active Jardiance 25 MG tablet TAKE 1 TABLET BY MOUTH EVERY DAY IN THE MORNING 90 tablet 1 10/24/2022 Active Encounters Date Type Department Care Team Description 07/10/2024 Office Communication [facility], [address] [phone] João De Leon DO from Last 3 [...] Comments Blood Pressure 126/62 06/07/2022 2:57 PM SPOON MAKER Pulse 68 06/07/2022 2:57 PM SPOON MAKER Temperature 36.3 C (97.4 F) 06/07/2022 2:57 PM SPOON MAKER Respiratory Rate 18 06/07/2022 2:57 PM SPOON MAKER Oxygen Saturation 99% 06/07/2022 2:57 PM SPOON MAKER Inhaled Oxygen Concentration - - Weight 70.8 kg (156 lb) 02/25/2020 12:00 PM CDT Height 167.6 cm (5' 6 ) 06/07/2022 2:57 PM SPOON MAKER Body Mass Index 25.18 02/25/2020 12:00 PM CDT Plan of Treatment Health Maintenance Due Date Last Done Comments Breast Cancer Screening 1955 Pneumococcal Vaccine: 50+ Ye ars (1 of 2 - PCV) 08/15/1974 Colorectal Cancer Screening: Annual FOBT 08/15/2004 Colorectal Cancer Screening: Colonoscopy 08/15/2004 Colorectal Cancer Screening: Sigmoidoscopy 08/15/2004 Hepatitis B Vaccine (1 of 3 - Risk 3-dose series) 2015 Diabetes: Hemoglobin A1C 10/15/2020 Diabetes: Ophthalmology Exam 10/15/2020 Diabetes: Pedal Pulse Checked 10/15/2020 Diabetes: Sensory Foot Exam 10/15/2020 Diabetes: Visual Foot Exam 10/15/2020 Influenza Vaccine Completed 02/15/2024, , 04/02/2019, Additional history exists Insurance Medicaid [place] Care Teams Construction Plant Operator Relationship Specialty Start Date End Date Vanna Dave FNP-C PCP - General Nurse Practitioner 02/07/22
--- OUTSIDE RECORDS SUMMARY | 2024-09-05 10:36 | XMS_ITS | Encounter Summary ---
Author Organization [employer] , [facility] Address [address] [place] [phone] Phone Care Team Providers Care Steelworker Name Role Phone Vanna Dave Primary Care Provider Unava ilable Reason for Visit * Reason Comments Med Refill Encounter Details Date Type Department Care Team (Late st Contact Info) Description 07/31/2021 Refill [employer] [facility], [address] [address] [place]ão [place] [address] [place] [phone] Social History Tobacco Use Types Packs/Day [...] on filedocumented in this encounter Care Teams Steelworker Relationship Specialty Start Date End Date Vanna Dave FNP-C PCP - General Nurse Practitioner 02/07/22 documented as of this encounter
--- OUTSIDE RECORDS SUMMARY | 2024-09-05 10:36 | XMS_ITS ---
Author Organization [facility] Address [address] [address] [place] [address] Care Team Providers Care Pharmacy Buyer Name Role Phone Shubham Del Valle Unavailable [phone] MEDICATIONS Medication SIG (Take, Route, Frequency, Duration) Notes Start Date End Date Status Sodium Bicarbonate 650 MG as directed Orally twice a day for 90 days 1300 mg BID 12/27/2023 Active Encounters Encounter Location Date Provider Diagnosis [facility] [address] [id number] 12/27/2023 Shubham Del Valle PLAN OF TREATMENT Medication Medication Name Sig Start Date Stop Date Notes Sodium Bicarbonate 650 MG as directed Or ally twice a day for 90 days 12/27/2023 1300 mg BID Progress Notes * Pasha PEREZOB:[birth year] (68 yo M)Acc No.[id number]:12/27/2023 Patient: Dea PEREZ :1955 Age:68 Y Sex:Male Address:[address] [place] [address] * Refills Start Sodium Bicarbonate Tablet, 650 MG, Orally, 360 Tablet, as directed, twice a day, 90 days, Refills=0 * true * Date:
--- OUTSIDE RECORDS SUMMARY | 2024-09-05 10:36 | XMS_ITS | Encounter Summary ---
Author Organization [email or web address] , [facility] Address [address] [place] [phone] Phone Care Team Providers Care Facility Operations Manager Name Role Phone Vanna Dave Primary Care Provider Unava ilable Reason for Visit * Reason Comments Med Refill Encounter Details Date Type Department Care Team (Late st Contact Info) Description 06/28/2021 Refill [facility], [address] [address] [place]ão [place] [address] [place] [phone] Social History Tobacco Use Types Packs/Day [...] on filedocumented in this encounter Care Teams Facility Operations Manager Relationship Specialty Start Date End Date Vanna Dave FNP-C PCP - General Nurse Practitioner 02/07/22 documented as of this encounter
--- OUTSIDE RECORDS SUMMARY | 2024-09-05 10:36 | XMS_ITS ---
ADULT CHILD LOW RISK: <150 ----- BODER LINE: 150-1 99 ----- HIGH RISK: >200 ----- Not Available [facility] (Lab) [address] [place], [address], 07/31/2023 13:57:39 07/31/19 24 07/31/2023 LIPID PANEL HDL cholesterol 32 mg/dL 40- low Not Available [facility] (Lab) [address] [place], [address], 07/31/2023 13:57:39 07/31/19 24 07/31/2023 LIPID PANEL [...] WILL NOT BE REPOR MINESH. Not Available [facility] (Lab) [address] [place], [address], 07/31/2023 13:57:39 07/31/19 24 07/31/2023 COMPR EHENS YULIANA METAB OLIC PANEL sodium 139 mmol/ L 137-14 5 Not Available [facility] (Lab) [address] [place], [address], 07/31/2023 13:57:45 07/31/19 24 07/31/2023 COMPR EHENS YULIANA METAB OLIC PANEL potassium 5.2 mmol/ L 3.5-5. 1 high Not Available [facility] (Lab) [address] [place], [address], 07/31/2023 13:57:45 07/31/19 24 07/31/2023 COMPR EHENS YULIANA METAB OLIC PANEL chloride 113 mmol/ L 98-107 high Not Available [facility] (Lab) [address] [place], [address], 07/31/2023 13:57:45 07/31/19 24 07/31/2023 COMPR EHENS YULIANA METAB OLIC PANEL carbon dioxide 18 mmol/ L 22-30 low Not Available [facility] (Lab) [address] [place], [address], 07/31/2023 13:57:45 07/31/19 24 07/31/2023 COMPR EHENS YULIANA METAB OLIC PANEL anion gap 13.2 mmol/ L 14-22 low Not Available [facility] (Lab) [address] [place], [address], 07/31/2023 13:57:45 07/31/19 24 07/31/2023 COMPR EHENS YULIANA METAB OLIC PANEL glucose 92 mg/dL 70-99 Not Available [facility] (Lab) [address] [place], [address], 07/31/2023 13:57:45 07/31/19 24 07/31/2023 COMPR EHENS YULIANA METAB OLIC PANEL BUN 14 mg/dL 8-19 Not Available [facility] (Lab) [address] [place], [address], 07/31/2023 13:57:45 07/31/19 24 07/31/2023 COMPR EHENS YULIANA METAB OLIC PANEL creatinine 0.70 mg/dL 0.66-1 .25 Not Available [facility] (Lab) [address] [place], [address], 07/31/2023 13:57:45 07/31/19 24 07/31/2023 COMPR EHENS YULIANA METAB OLIC PANEL GFR >60 Refer ence Range : [place] GFR Healt hy Adult : >60 [...] or ethni c subgr oups, such as [facility] nics. Outsi de the valid ated tk [...] calcu lator is avail able on the [facility] websi te: https ://zoe mayorga.piter pinzon.o rg/pr ofess ional s/kdo qi/gf r_cal culat or Not Available [facility] (Lab) [address] [place], [address], 07/31/2023 13:57:45 07/31/19 24 07/31/2023 COMPR EHENS YULIANA METAB OLIC PANEL alkaline phosphatase 136 U/L 38-126 high Not Available [facility] (Lab) [address] [place], [address], 07/31/2023 13:57:45 07/31/19 24 07/31/2023 COMPR EHENS YULIANA METAB OLIC PANEL alanine aminotransfe rase 18 U/L 0-35 Not Available [facility] (Lab) [address] [place], [address], 07/31/2023 13:57:45 07/31/19 24 07/31/2023 COMPR EHENS YULIANA METAB OLIC PANEL aspartate aminotransfe rase 22 U/L 15-37 Not Available [facility] (Lab) [address] [place], [address], 07/31/2023 13:57:45 07/31/19 24 07/31/2023 COMPR EHENS YULIANA METAB OLIC PANEL bilirubin, total 0.30 mg/dL 0.20-1 .30 Not Available [facility] (Lab) [address] [place], [address], 07/31/2023 13:57:45 07/31/19 24 07/31/2023 COMPR EHENS YULIANA METAB OLIC PANEL calcium 9.9 mg/dL 8.4-10 .2 Not Available [facility] (Lab) [address] [place], [address], 07/31/2023 13:57:45 07/31/19 24 07/31/2023 COMPR EHENS YULIANA METAB OLIC PANEL total protein 7.1 g/dL 6.3-8. 2 Not Available [facility] (Lab) [address] [place], [address], 07/31/2023 13:57:45 07/31/19 24 07/31/2023 COMPR EHENS YULIANA METAB OLIC PANEL albumin 4.0 g/dL 3.0-4. 4 Not Available [facility] (Lab) [address] [place], [address], 07/31/2023 13:57:45 07/31/19 24 07/31/2023 COMPR EHENS YULIANA METAB OLIC PANEL globulin 3.1 g/dL 2.6-4. 2 Not Available [facility] (Lab) [address] [place], [address], 07/31/2023 13:57:45 07/31/19 24 07/31/2023 COMPR EHENS YULIANA METAB OLIC PANEL A/G ratio 1.3 ratio 1.0-2. 0 Not Available [facility] (Lab) [address] [place], [address], 07/31/2023 13:57:45 07/31/19 24 07/31/2023 T4 FREE free T4 0.72 NG/dL 0.78-2 .19 low Not Available [facility] (Lab) [address] [place], [address], 07/31/2023 14:08:33 07/31/19 24 07/31/2023 VITAM IN D 25-HY DROXY vd25oh 78.2 NG/mL 30-100 Vitam in D Statu s: Defic ient: <20 ng/mL Insuf ficie nt: 20-29 ng/mL Suffi cient : 30-10 0 ng/mL Not Available [facility] (Lab) [address] [place], [address], 07/31/2023 14:10:04 07/31/19 24 07/31/2023 TSH thyroid-stim ulating hormone 0.868 uIU/m L 0.465- 4.680 Not Available [facility] (Lab) [address] [place], [address], 07/31/2023 14:24:34 07/31/19 24 07/31/2023 HEMOG LOBIN A1C HA1C 5.8 % 4.0-6. 0 Diabe dick Scree brennon Crite kena: <5.7% Consi stent with absen ce of diabe dick 5.7-6 .4% Consi stent with incre ased risk for diabe dick (pred iabet es) >OR=6 .5% Consi stent with diabe dick REFER ENCE: Diabe dick Care 2016, 39(Jones ppl.1 ):s13 -s22 Not Available [facility] (Lab) [address] [place], [address], 07/31/2023 14:59:24 07/31/19 24 07/31/2023 VITAM IN B12 (SCOOBY JOSE LUIS ) vb12 225 pg/mL 239-93 1 low Not Available [facility] (Lab) [address] [place], [address], 07/31/2023 15:03:49 07/31/19 24 07/31/2023 FOLAT E, SERUM /PLAS MA folate 8.42 NG/mL 2.76-2 0.0 Not Available [facility] (Lab) [address] [place], [address], 07/31/2023 15:03:51 08/28/19 24 08/28/2023 T4 FREE free T4 0.62 NG/dL 0.78-2 .19 low Not Available [facility] (Lab) [address] [place], [address], 08/28/2023 12:07:05 08/28/19 24 08/28/2023 TSH thyroid-stim ulating hormone 0.967 uIU/m L 0.465- 4.680 Not Available [facility] (Lab) [address] [place], [address], 08/28/2023 12:25:29 08/28/19 24 08/28/2023 HEPAT ITIS ACUTE PANEL hepatitis A IgM antibody NON-RE ACTIVE non-re active For sampl es repor minesh as Thomas saunders React yuliana for HAV IgM, it is recom purvi d a new speci men be obtai vance in 2 weeks and retes minesh. Not Available [facility] (Lab) [address] [place], [address], 08/28/2023 16:11:39 08/28/19 24 08/28/2023 HEPAT ITIS ACUTE PANEL hepatitis A virus signal/cutof 0.03 0.00-0 .79 Not Available [facility] (Lab) [address] [place], [address], 08/28/2023 16:11:39 08/28/19 24 08/28/2023 HEPAT ITIS ACUTE PANEL hepatitis B core IgM antibody NON-RE ACTIVE non-re active Not Available [facility] (Lab) [address] [place], [address], 08/28/2023 16:11:39 08/28/19 24 08/28/2023 HEPAT ITIS ACUTE PANEL HBV core IgM signal/cutof f 0.03 0.00-1 .10 Not Available [facility] (Lab) [address] [place], [address], 08/28/2023 16:11:39 08/28/19 24 08/28/2023 HEPAT ITIS ACUTE PANEL hepatitis B surface antigen NON-RE ACTIVE non-re active All speci mens react yuliana for Hepat itis B Surfa ce Antig en will refle x to refer ral lab confi rmato ry testi ng. Not Available [facility] (Lab) [address] [place], [address], 08/28/2023 16:11:39 08/28/19 24 08/28/2023 HEPAT ITIS ACUTE PANEL HBV surf.antigen signal/cutof f 0.10 0.00-0 .99 Not Available [facility] (Lab) [address] [place], [address], 08/28/2023 16:11:39 08/28/19 24 08/28/2023 HEPAT ITIS ACUTE PANEL hepatitis C antibody NON-RE ACTIVE non-re active All speci mens react yuliana for Hepat itis C Virus antib eliel will refle x to PCR confi rmato ry testi ng. Pleas e allow 48-72 hours for resul ts. Not Available [facility] (Lab) [address] [place], [address], 08/28/2023 16:11:39 08/28/19 24 08/28/2023 HEPAT ITIS ACUTE PANEL hepatitis C virus signal/cutof 0.04 0.00-0 .99 Not Available [facility] (Lab) [address] [place], [address], 08/28/2023 16:11:39 08/28/19 24 08/28/2023 GGT/G -GLUT AMYL TRANS FERAS E gamma-glutam yl transferase 17 U/L 12-43 Not Available [facility] (Lab) [address] [place], [address], 08/28/2023 22:37:19 10/13/19 24 10/13/2023 LIPID PANEL cholesterol 145 mg/dL 140-19 9 NIH ALEKS NSUS RECOM MENDA TION FOR GLORIA STERO L: ADULT CHILD LOW RISK: <200 <170 BORDE RLINE : <200- 239 ----- HIGH RISK: >240 >200 Not Available [facility] (Lab) [address] [place], [address], 10/13/2023 11:01:56 10/13/19 24 10/13/2023 LIPID PANEL triglyceride s 127 mg/dL 0-150 NIH ALEKS NSUS REPOR T RECOM MENDA TION FOR TRIGL YCERI WES: ADULT CHILD LOW RISK: <150 ----- BODER LINE: 150-1 99 ----- HIGH RISK: >200 ----- Not Available [facility] (Lab) [address] [place], [address], 10/13/2023 11:01:56 10/13/19 24 10/13/2023 LIPID PANEL HDL cholesterol 39 mg/dL 40- low Not Available [facility] (Lab) [address] [place], [address], 10/13/2023 11:01:56 10/13/19 24 10/13/2023 LIPID PANEL [...] WILL NOT BE REPOR MINESH. Not Available [facility] (Lab) [address] [place], [address], 10/13/2023 11:01:56 10/13/19 24 10/13/2023 COMPR EHENS YULIANA METAB OLIC PANEL sodium 140 mmol/ L 137-14 5 Not Available [facility] (Lab) [address] [place], [address], 10/13/2023 11:02:22 10/13/19 24 10/13/2023 COMPR EHENS YULIANA METAB OLIC PANEL potassium 5.1 mmol/ L 3.5-5. 1 Not Available [facility] (Lab) [address] [place], [address], 10/13/2023 11:02:22 10/13/19 24 10/13/2023 COMPR EHENS YULIANA METAB OLIC PANEL chloride 115 mmol/ L 98-107 high Not Available [facility] (Lab) [address] [place], [address], 10/13/2023 11:02:22 10/13/19 24 10/13/2023 COMPR EHENS YULIANA METAB OLIC PANEL carbon dioxide 19 mmol/ L 22-30 low Not Available [facility] (Lab) [address] [place], [address], 10/13/2023 11:02:22 10/13/19 24 10/13/2023 COMPR EHENS YULIANA METAB OLIC PANEL anion gap 11.1 mmol/ L 14-22 low Not Available [facility] (Lab) [address] [place], [address], 10/13/2023 11:02:22 10/13/19 24 10/13/2023 COMPR EHENS YULIANA METAB OLIC PANEL glucose 107 mg/dL 70-99 high Not Available [facility] (Lab) [address] [place], [address], 10/13/2023 11:02:22 10/13/19 24 10/13/2023 COMPR EHENS YULIANA METAB OLIC PANEL BUN 15 mg/dL 8-19 Not Available [facility] (Lab) [address] [place], [address], 10/13/2023 11:02:22 10/13/19 24 10/13/2023 COMPR EHENS YULIANA METAB OLIC PANEL creatinine 0.92 mg/dL 0.66-1 .25 Not Available [facility] (Lab) [address] [place], [address], 10/13/2023 11:02:22 10/13/19 24 10/13/2023 COMPR EHENS YULIANA METAB OLIC PANEL GFR >60 Refer ence Range : [place] GFR Healt hy Adult : >60 [...] or ethni c subgr oups, such as [facility] nics. Outsi de the valid ated tk [...] on the F websi te: https ://zoe pinzon.o rg/pr ofess ional s/kdo qi/gf r_cal culat or Not Available [facility] (Lab) [address] [place], [address], 10/13/2023 11:02:22 10/13/19 24 10/13/2023 COMPR EHENS YULIANA METAB OLIC PANEL alkaline phosphatase 73 U/L 38-126 Not Available [facility] (Lab) [address] [place], [address], 10/13/2023 11:02:22 10/13/19 24 10/13/2023 COMPR EHENS YULIANA METAB OLIC PANEL alanine aminotransfe rase 17 U/L 0-35 Not Available [facility] (Lab) [address] [place], [address], 10/13/2023 11:02:22 10/13/19 24 10/13/2023 COMPR EHENS YULIANA METAB OLIC PANEL aspartate aminotransfe rase 22 U/L 15-37 Not Available [facility] (Lab) [address] [place], [address], 10/13/2023 11:02:22 10/13/19 24 10/13/2023 COMPR EHENS YULIANA METAB OLIC PANEL bilirubin, total 0.40 mg/dL 0.20-1 .30 Not Available [facility] (Lab) [address] [place], [address], 10/13/2023 11:02:22 10/13/19 24 10/13/2023 COMPR EHENS YULIANA METAB OLIC PANEL calcium 9.7 mg/dL 8.4-10 .2 Not Available [facility] (Lab) [address] [place], [address], 10/13/2023 11:02:22 10/13/19 24 10/13/2023 COMPR EHENS YULIANA METAB OLIC PANEL total protein 6.9 g/dL 6.3-8. 2 Not Available [facility] (Lab) [address] [place], [address], 10/13/2023 11:02:22 10/13/19 24 10/13/2023 COMPR EHENS YULIANA METAB OLIC PANEL albumin 4.2 g/dL 3.0-4. 4 Not Available [facility] (Lab) [address] [place], [address], 10/13/2023 11:02:22 10/13/19 24 10/13/2023 COMPR EHENS YULIANA METAB OLIC PANEL globulin 2.7 g/dL 2.6-4. 2 Not Available [facility] (Lab) [address] [place], [address], 10/13/2023 11:02:22 10/13/19 24 10/13/2023 COMPR EHENS YULIANA METAB OLIC PANEL A/G ratio 1.6 ratio 1.0-2. 0 Not Available [facility] (Lab) [address] [place], [address], 10/13/2023 11:02:22 10/13/19 24 10/13/2023 T4 FREE free T4 0.80 NG/dL 0.78-2 .19 Not Available [facility] (Lab) [address] [place], [address], 10/13/2023 11:17:29 10/13/19 24 10/13/2023 MICRO ALBUM IN RANDO M URINE microalbumin , urine 45.6 mg/L 0.0-16 .6 high Not Available [facility] (Lab) [address] [place], [address], 10/13/2023 11:26:10 10/13/19 24 10/13/2023 TSH thyroid-stim ulating hormone 1.200 uIU/m L 0.465- 4.680 Not Available [facility] (Lab) [address] [place], [address], 10/13/2023 11:44:04 10/13/19 24 10/13/2023 CBC/C OMPLE TE BLD COUNT W/DIF F white blood cells 8.4 x10'3 /uL 4.2-10 .8 Not Available [facility] (Lab) [address] [place], [address], 10/13/2023 11:48:46 10/13/19 24 10/13/2023 CBC/C OMPLE TE BLD COUNT W/DIF F red blood cells 4.37 x10'6 /uL 3.80-5 .20 Not Available [facility] (Lab) [address] [place], [address], 10/13/2023 11:48:46 10/13/19 24 10/13/2023 CBC/C OMPLE TE BLD COUNT W/DIF F hemoglobin 13.3 g/dL 12.0-1 5.6 Not Available [facility] (Lab) [address] [place], [address], 10/13/2023 11:48:46 10/13/19 24 10/13/2023 CBC/C OMPLE TE BLD COUNT W/DIF F hematocrit 41.8 % 35.7-4 5.7 Not Available [facility] (Lab) [address] [place], [address], 10/13/2023 11:48:46 10/13/19 24 10/13/2023 CBC/C OMPLE TE BLD COUNT W/DIF F mean red cell volume 95.7 fL 82.0-9 9.0 Not Available [facility] (Lab) [address] [place], [address], 10/13/2023 11:48:46 10/13/19 24 10/13/2023 CBC/C OMPLE TE BLD COUNT W/DIF F mean red cell hemoglobin 30.4 pg 27.0-3 3.0 Not Available [facility] (Lab) [address] [place], [address], 10/13/2023 11:48:46 10/13/19 10/13/2023 CBC/C OMPLE TE BLD COUNT W/DIF F mean RBC HGB concentratio n 31.8 g/dL 31.0-3 6.0 Not Available [facility] (Lab) [address] [place], [address], 10/13/2023 11:48:46 10/13/19 24 10/13/2023 CBC/C OMPLE TE BLD COUNT W/DIF F red cell distribution width 15.1 % 11.8-1 5.5 Not Available [facility] (Lab) [address] [place], [address], 10/13/2023 11:48:46 10/13/19 24 10/13/2023 CBC/C OMPLE TE BLD COUNT W/DIF F platelets 424 x10'3 /uL 150-40 0 high Not Available [facility] (Lab) [address] [place], [address], 10/13/2023 11:48:46 10/13/19 24 10/13/2023 CBC/C OMPLE TE BLD COUNT W/DIF F mean platelet volume 9.7 fL 9.0-12 .4 Not Available [facility] (Lab) [address] [place], [address], 10/13/2023 11:48:46 10/13/19 24 10/13/2023 CBC/C OMPLE TE BLD COUNT W/DIF F neutrophils 39.5 % 39.0-7 2.0 Not Available [facility] (Lab) [address] [place], [address], 10/13/2023 11:48:46 10/13/19 24 10/13/2023 CBC/C OMPLE TE BLD COUNT W/DIF F lymphocytes 48.4 % 16.0-4 7.0 high Not Available [facility] (Lab) [address] [place], [address], 10/13/2023 11:48:46 10/13/19 24 10/13/2023 CBC/C OMPLE TE BLD COUNT W/DIF F monocytes 8.4 % 5.0-12 .0 Not Available [facility] (Lab) [address] [place], [address], 10/13/2023 11:48:46 10/13/19 24 10/13/2023 CBC/C OMPLE TE BLD COUNT W/DIF F eosinophils 2.9 % 1.0-7. 0 Not Available [facility] (Lab) [address] [place], [address], 10/13/2023 11:48:46 10/13/19 24 10/13/2023 CBC/C OMPLE TE BLD COUNT W/DIF F basophils 0.6 % 0.0-2. 0 Not Available [facility] (Lab) [address] [place], [address], 10/13/2023 11:48:46 10/13/19 24 10/13/2023 CBC/C OMPLE TE BLD COUNT W/DIF F immature granulocytes 0.2 % 0.00-0 .50 Not Available [facility] (Lab) [address] [place], [address], 10/13/2023 11:48:46 10/13/19 24 10/13/2023 CBC/C OMPLE TE BLD COUNT W/DIF F neutrophils, absolute count 3.30 x10'3 /uL 1.5-8. 0 Not Available [facility] (Lab) [address] [place], [address], 10/13/2023 11:48:46 10/13/19 24 10/13/2023 CBC/C OMPLE TE BLD COUNT W/DIF F lymphocytes, absolute count 4.04 x10'3 /uL 1.07-3 .43 high Not Available [facility] (Lab) [address] [place], [address], 10/13/2023 11:48:46 10/13/19 24 10/13/2023 CBC/C OMPLE TE BLD COUNT W/DIF F monocytes, absolute count 0.70 x10'3 /uL 0.29-0 .99 Not Available [facility] (Lab) [address] [place], [address], 10/13/2023 11:48:46 10/13/19 24 10/13/2023 CBC/C OMPLE TE BLD COUNT W/DIF F eosinophils, absolute count 0.24 x10'3 /uL 0.02-0 .53 Not Available [facility] (Lab) [address] [place], [address], 10/13/2023 11:48:46 10/13/19 24 10/13/2023 CBC/C OMPLE TE BLD COUNT W/DIF F basophils, absolute count 0.05 x10'3 /uL 0.01-0 .08 Not Available [facility] (Lab) [address] [place], [address], 10/13/2023 11:48:46 10/13/19 24 10/13/2023 CBC/C OMPLE TE BLD COUNT W/DIF F immature granulocytes ,absolute 0.02 x10'3 /uL 0.00-0 .05 Not Available [facility] (Lab) [address] [place], [address], 10/13/2023 11:48:46 10/13/19 24 10/13/2023 CBC/C OMPLE TE BLD COUNT W/DIF F nucleated red blood cells 0.0 % -0 Not Available [facility] (Lab) [address] [place], [address], 10/13/2023 11:48:46 10/13/19 24 10/13/2023 CBC/C OMPLE TE BLD COUNT W/DIF F NRBC# 0.00 x10'3 /uL Not Available [facility] (Lab) [address] [place], [address], 10/13/2023 11:48:46 10/13/19 24 10/13/2023 HEMOG LOBIN A1C HA1C 6.4 % 4.0-6. 0 high Diabe dick Scree brennon Crite kena: <5.7% Consi stent with absen ce of diabe dick 5.7-6 .4% Consi stent with incre ased risk for diabe dick (pred iabet es) >OR=6 .5% Consi stent with diabe dick REFER ENCE: Diabe dick Care 2016, 39(Jones ppl.1 ):s13 -s22 Not Available [facility] (Lab) [address] [place], [address], 10/13/2023 11:59:58 10/13/19 24 10/13/2023 VITAM IN D 25-HY DROXY vd25oh 65.2 NG/mL 30-100 Vitam in D Statu s: Defic ient: <20 ng/mL Insuf ficie nt: 20-29 ng/mL Suffi cient : 30-10 0 ng/mL Not Available [facility] (Lab) [address] [place], [address], 10/13/2023 13:22:31 10/13/19 24 10/13/2023 FOLAT E, SERUM /PLAS MA folate 8.91 NG/mL 2.76-2 0.0 Not Available [facility] (Lab) [address] [place], [address], 10/13/2023 13:44:45 10/13/19 24 10/13/2023 VITAM IN B12 (SCOOBY JOSE LUIS ) vb12 206 pg/mL 239-93 1 low Not Available [facility] (Lab) [address] [place], [address], 10/13/2023 13:44:49 02/19/20 24 02/19/2024 CBC/C OMPLE TE BLD COUNT W/DIF F white blood cells 11.3 x10'3 /uL 4.2-10 .8 high Not Available [facility] (Lab) [address] [place], [address], 02/19/2024 12:03:02 02/19/20 24 02/19/2024 CBC/C OMPLE TE BLD COUNT W/DIF F red blood cells 4.41 x10'6 /uL 3.80-5 .20 Not Available [facility] (Lab) [address] [place], [address], 02/19/2024 12:03:02 02/19/20 24 02/19/2024 CBC/C OMPLE TE BLD COUNT W/DIF F hemoglobin 13.8 g/dL 12.0-1 5.6 Not Available [facility] (Lab) [address] [place], [address], 02/19/2024 12:03:02 02/19/20 24 02/19/2024 CBC/C OMPLE TE BLD COUNT W/DIF F hematocrit 43.9 % 35.7-4 5.7 Not Available [facility] (Lab) [address] [place], [address], 02/19/2024 12:03:02 02/19/20 24 02/19/2024 CBC/C OMPLE TE BLD COUNT W/DIF F mean red cell volume 99.5 fL 82.0-9 9.0 high Not Available [facility] (Lab) [address] [place], [address], 02/19/2024 12:03:02 02/19/20 24 02/19/2024 CBC/C OMPLE TE BLD COUNT W/DIF F mean red cell hemoglobin 31.3 pg 27.0-3 3.0 Not Available [facility] (Lab) [address] [place], [address], 02/19/2024 12:03:02 02/19/20 24 02/19/2024 CBC/C OMPLE TE BLD COUNT W/DIF F mean RBC HGB concentratio n 31.4 g/dL 31.0-3 6.0 Not Available [facility] (Lab) [address] [place], [address], 02/19/2024 12:03:02 02/19/20 24 02/19/2024 CBC/C OMPLE TE BLD COUNT W/DIF F red cell distribution width 13.9 % 11.8-1 5.5 Not Available [facility] (Lab) [address] [place], [address], 02/19/2024 12:03:02 02/19/20 24 02/19/2024 CBC/C OMPLE TE BLD COUNT W/DIF F platelets 450 x10'3 /uL 150-40 0 high Not Available [facility] (Lab) [address] [place], [address], 02/19/2024 12:03:02 02/19/20 24 02/19/2024 CBC/C OMPLE TE BLD COUNT W/DIF F mean platelet volume 10.2 fL 9.0-12 .4 Not Available [facility] (Lab) [address] [place], [address], 02/19/2024 12:03:02 02/19/20 24 02/19/2024 CBC/C OMPLE TE BLD COUNT W/DIF F neutrophils 43 % 39.0-7 2.0 Not Available [facility] (Lab) [address] [place], [address], 02/19/2024 12:03:02 02/19/20 24 02/19/2024 CBC/C OMPLE TE BLD COUNT W/DIF F lymphocytes 52 % 16.0-4 7.0 high Not Available [facility] (Lab) [address] [place], [address], 02/19/2024 12:03:02 02/19/20 24 02/19/2024 CBC/C OMPLE TE BLD COUNT W/DIF F monocytes 3 % 5.0-12 .0 low Not Available [facility] (Lab) [address] [place], [address], 02/19/2024 12:03:02 02/19/20 24 02/19/2024 CBC/C OMPLE TE BLD COUNT W/DIF F eosinophils 2 % 1.0-7. 0 Not Available [facility] (Lab) [address] [place], [address], 02/19/2024 12:03:02 02/19/20 24 02/19/2024 CBC/C OMPLE TE BLD COUNT W/DIF F neutrophils, absolute count 4.99 x10'3 /uL 1.5-8. 0 Not Available [facility] (Lab) [address] [place], [address], 02/19/2024 12:03:02 02/19/20 24 02/19/2024 LIPID PANEL cholesterol 136 mg/dL 140-19 9 low NIH ALEKS NSUS RECOM MENDA TION FOR GLORIA STERO L: ADULT CHILD LOW RISK: <200 <170 BORDE RLINE : <200- 239 ----- HIGH RISK: >240 >200 Not Available [facility] (Lab) [address] [place], [address], 02/19/2024 12:03:05 02/19/20 24 02/19/2024 LIPID PANEL triglyceride s 199 mg/dL 0-150 high NIH ALEKS NSUS REPOR T RECOM MENDA TION FOR TRIGL YCERI WES: ADULT CHILD LOW RISK: <150 ----- BODER LINE: 150-1 99 ----- HIGH RISK: >200 ----- Not Available [facility] (Lab) [address] [place], [address], 02/19/2024 12:03:05 02/19/20 24 02/19/2024 LIPID PANEL HDL cholesterol 33 mg/dL 40- low Not Available [facility] (Lab) [address] [place], [address], 02/19/2024 12:03:05 02/19/20 24 02/19/2024 LIPID PANEL [...] WILL NOT BE REPOR MINESH. Not Available [facility] (Lab) [address] [place], [address], 02/19/2024 12:03:05 02/19/20 24 02/19/2024 COMPR EHENS YULIANA METAB OLIC PANEL sodium 138 mmol/ L 137-14 5 Not Available [facility] (Lab) [address] [place], [address], 02/19/2024 12:03:10 02/19/20 24 02/19/2024 COMPR EHENS YULIANA METAB OLIC PANEL potassium 4.9 mmol/ L 3.5-5. 1 Not Available [facility] (Lab) [address] [place], [address], 02/19/2024 12:03:10 02/19/20 24 02/19/2024 COMPR EHENS YULIANA METAB OLIC PANEL chloride 109 mmol/ L 98-107 high Not Available [facility] (Lab) [address] [place], [address], 02/19/2024 12:03:10 02/19/20 24 02/19/2024 COMPR EHENS YULIANA METAB OLIC PANEL carbon dioxide 23 mmol/ L 22-30 Not Available [facility] (Lab) [address] [place], [address], 02/19/2024 12:03:10 02/19/20 24 02/19/2024 COMPR EHENS YULIANA METAB OLIC PANEL anion gap 10.9 mmol/ L 14-22 low Not Available [facility] (Lab) [address] [place], [address], 02/19/2024 12:03:10 02/19/20 24 02/19/2024 COMPR EHENS YULIANA METAB OLIC PANEL glucose 125 mg/dL 70-99 high Not Available [facility] (Lab) [address] [place], [address], 02/19/2024 12:03:10 02/19/20 24 02/19/2024 COMPR EHENS YULIANA METAB OLIC PANEL BUN 19 mg/dL 8-19 Not Available [facility] (Lab) [address] [place], [address], 02/19/2024 12:03:10 02/19/20 24 02/19/2024 COMPR EHENS YULIANA METAB OLIC PANEL creatinine 1.15 mg/dL 0.66-1 .25 Not Available [facility] (Lab) [address] [place], [address], 02/19/2024 12:03:10 02/19/20 24 02/19/2024 COMPR EHENS YULIANA METAB OLIC PANEL GFR 47 Refer ence Range : [place] ge GFR Healt hy Adult : >60 [...] calcu lator is avail able on the [facility] websi te: https ://ww w.kid jeromy.o rg/pr ofess ional s/kdo qi/gf r_cal culat or Not Available [facility] (Lab) [address] [place], [address], 02/19/2024 12:03:10 02/19/20 24 02/19/2024 COMPR EHENS YULIANA METAB OLIC PANEL alkaline phosphatase 78 U/L 38-126 Not Available [facility] (Lab) [address] [place], [address], 02/19/2024 12:03:10 02/19/20 24 02/19/2024 COMPR EHENS YULIANA METAB OLIC PANEL alanine aminotransfe rase 22 U/L 0-35 Not Available [facility] (Lab) [address] [place], [address], 02/19/2024 12:03:10 02/19/20 24 02/19/2024 COMPR EHENS YULIANA METAB OLIC PANEL aspartate aminotransfe rase 24 U/L 15-37 Not Available [facility] (Lab) [address] [place], [address], 02/19/2024 12:03:10 02/19/20 24 02/19/2024 COMPR EHENS YULIANA METAB OLIC PANEL bilirubin, total 0.40 mg/dL 0.20-1 .30 Not Available [facility] (Lab) [address] [place], [address], 02/19/2024 12:03:10 02/19/20 24 02/19/2024 COMPR EHENS YULIANA METAB OLIC PANEL calcium 9.7 mg/dL 8.4-10 .2 Not Available [facility] (Lab) [address] [place], [address], 02/19/2024 12:03:10 02/19/20 24 02/19/2024 COMPR EHENS YULIANA METAB OLIC PANEL total protein 6.9 g/dL 6.3-8. 2 Not Available [facility] (Lab) [address] [place], [address], 02/19/2024 12:03:10 02/19/20 24 02/19/2024 COMPR EHENS YULIANA METAB OLIC PANEL albumin 4.1 g/dL 3.0-4. 4 Not Available [facility] (Lab) [address] [place], [address], 02/19/2024 12:03:10 02/19/20 24 02/19/2024 COMPR EHENS YULIANA METAB OLIC PANEL globulin 2.8 g/dL 2.6-4. 2 Not Available [facility] (Lab) [address] [place], [address], 02/19/2024 12:03:10 02/19/20 24 02/19/2024 COMPR EHENS YULIANA METAB OLIC PANEL A/G ratio 1.5 ratio 1.0-2. 0 Not Available [facility] (Lab) [address] [place], [address], 02/19/2024 12:03:10 02/19/20 24 02/19/2024 T4 FREE free T4 0.88 NG/dL 0.78-2 .19 Not Available [facility] (Lab) [address] [place], [address], 02/19/2024 12:21:33 02/19/20 24 02/19/2024 MICRO ALBUM IN RANDO M URINE microalbumin , urine 28.6 mg/L 0.0-16 .6 high Not Available [facility] (Lab) [address] [place], [address], 02/19/2024 12:25:51 02/19/20 24 02/19/2024 TSH thyroid-stim ulating hormone 1.370 uIU/m L 0.465- 4.680 Not Available [facility] (Lab) [address] [place], [address], 02/19/2024 12:33:09 02/19/20 24 02/19/2024 VITAM IN B12 (SCOOBY JOSE LUIS ) vb12 527 pg/mL 239-93 1 Not Available [facility] (Lab) [address] [place], [address], 02/19/2024 13:33:52 02/19/20 24 02/19/2024 FOLAT E, SERUM /PLAS MA folate 11.8 NG/mL 2.76-2 0.0 Not Available [facility] (Lab) [address] [place], [address], 02/19/2024 13:33:57 02/19/20 24 02/19/2024 VITAM IN D 25-HY DROXY vd25oh 55.1 NG/mL 30-100 Vitam in D Statu s: Defic ient: <20 ng/mL Insuf ficie nt: 20-29 ng/mL Suffi cient : 30-10 0 ng/mL Not Available [facility] (Lab) [address] [place], [address], 02/19/2024 13:34:08 02/19/20 24 02/19/2024 HEMOG LOBIN A1C HA1C 7.4 % 4.0-6. 0 high Diabe dick Scree brennon Crite kena: <5.7% Consi stent with absen ce of diabe dick 5.7-6 .4% Consi stent with incre ased risk for diabe dick (pred iabet es) >OR=6 .5% Consi stent with diabe dick REFER ENCE: Diabe dick Care 2016, 39(Jones ppl.1 ):s13 -s22 Not Available [facility] ([facility]) [address], [place], [address], 02/19/2024 15:16:55 07/27/19 24 07/27/2023 US, echoc ardio gram No observ ation record ed. [email or web address] [facility] [address], [place], [address], 08/31/2023 11:13:49 07/27/19 24 07/27/2023 imagi ng/di agnos tic resul t No observ ation record ed. [facility] [address], [place], [address], 07/27/2023 12:41:40 07/27/19 24 07/26/2023 US, alo henry id arter y No observ ation record ed. [email or web address] [facility] [address], [place], [address], 08/31/2023 11:14:19 07/27/19 24 07/26/2023 imagi ng/di agnos tic resul t No observ ation record ed. [facility] [address], [place], [address], 07/27/2023 12:45:11 08/10/19 24 08/10/2023 US, abdom en, limit ed [facility] [address] [place] [address] Patien t Name: DEA AGUSTIN ion #: [id number] Sex: F : 1955 3 Dictat ed By: Bruce Valdes Attend ing Physic orin: CLCARLITOS BASS Orderi ng Physic orin: ANGELLA CARLITOS BREWER Exam Date: 2023 07:38 AM Exam Name: [...] at 2023 08:47: 37 AM Page 1 [email or web address] [facility] (Imaging) [address] [place], [address], 09/05/2023 11:51:10 08/10/19 24 08/10/2023 US, liver No observ ation record ed. [facility] [address] [place], [address], 09/05/2023 11:51:10 08/10/19 24 08/10/2023 US, head + neck, soft tissu e [facility] [address] [place] [address] [phone] Patien t Name: GERMAINLES DEA GASPAR Access ion #: [id number] Sex: F : 1955 3 Dictat ed By: Des García ms Attend ing Physic orin: ANGELLA BREWER TAMIJosé LuisDAGOBERTO Avery Orderconstance ng Physic orin: ANGELLA BREWER TAMIJosé LuisDAGOBERTO A Exam Date: 2023 07:38 AM Exam Name: [...] points = 4 TR 4 Page 1 [facility] [address] [address] Patien t Name: DEA AGUSTIN Access ion #: [id number] Sex: F : 1955 3 Dictat ed By: Des García ms Attend ing Physic orin: CARLITOS Stapleton ANGELLA OSMAN Orderconstance ng Physic orin: ANGELLA CHARUCINDY TAMIJosé LuisDAGOBERTO Stapleton Exam Date: 2023 07:38 AM Exam Name: [...] aspira tion is recomm ended. [place] of Radiol ogy TI-RAD S Catego corrina and Recomm endati ons (2017) : TR4: 4-6 points , Modera tely Suspic ious, FNA if > or = 1.5 cm, Follow if > or = 1.0 cm TR4: at 1, 2, 3 and 5 years, if no growth or change in TI-RAD S level Source : ACR Thyroi d Evain g, Report ing and Data System (TI-RA DS): White Paper of the ACR TI-RAD S Commit ally. Ivette et al., J Am Sarthak Radiol 2017;1 4:587- 595. Electr onical ly Signed by: Des García ms at 2023 08:58: 19 AM Page 3 [email or web address] [facility] (Imaging) [address] [place], [address], 09/05/2023 11:45:32 08/10/19 24 08/10/2023 US, thyro id No observ ation record ed. [email or web address] [facility] [address] [place], [address], 09/05/2023 11:51:11 09/29/19 24 09/29/2023 NM, myoca rdial perfu arslan scan No observ ation record ed. [facility] [address], [place], [address], 12/07/2023 12:34:17 09/29/19 24 09/29/2023 imagi ng/di agnos tic resul t No observ ation record ed. [facility] [address], [place], [address], 09/29/2023 19:04:49 12/20/19 24 12/20/2023 imagi ng/di agnos tic resul t No observ ation record ed. [address] [facility], [place], [address], 12/20/2023 10:57:33 12/20/19 24 12/20/2023 fine needl e aspir ation , ultra sound guide d, thyro id (PROC ) No observ ation record ed. [address] [facility], [place], [address], 12/21/2023 09:56:14 12/22/19 24 12/20/2023 fine needl e aspir ation No observ ation record ed. [address], [place], [address], 12/22/2023 11:10:30 12/22/19 24 12/20/2023 fine needl e aspir ation , ultra sound guide d, thyro id (PROC ) No observ ation record ed. [address], [place], [address], 12/25/2023 08:08:43 08/20/19 25 08/17/2024 LDCT, chest , for lung cance r scree brennon No observ ation record ed. [address], [place], [address], 08/19/2024 07:46:17 Result Notes None recorded. Problems Name Problem SNOMED Code Status Onset Date Resolution Date Notes Provider Name and Address Organization Details Recorded Time Type 2 diabetes mellitus without complication 787308144 Active 2022 Not Available Replaced by [facility] 3 06:53:10 Acid reflux 395829193 Active 2022 Not Available [facility] 3 06:53:10 Vitamin D deficiency 00503481 Active 2022 Not Available Replaced by [facility] 3 06:53:10 Thrombocytosi s 6576132 Active 2022 Marbella Reyes MA [facility], [employer] [facility] [employer] [facility] 3 14:13:15 Smoker 97372607 Active 2022 Clara stapleton MD [address], [place], [address] , [employer] [facility] [employer] [facility] 3 15:40:08 Coronary arteriosclero sis 29874255 Active 2022 Clara stapleton MD [address], [place], [address] , [employer] [facility] [employer] [facility] 3 15:41:37 Essential hypertension 54538986 Active 2022 Clara stapleton MD [address], [place], [address] , [employer] S [employer] [facility] 3 15:42:42 Serum vitamin B12 below reference range 082422486 Active 2022 Clara stapleton MD [address], [place], [address] , [employer] [facility] 3 15:44:46 Gastroesophag eal reflux disease without esophagitis 072505058 Active 2022 Clara stapleton MD [address], [place], [address] , [employer] [facility] [employer] [facility] 3 15:45:11 Malignant neoplasm of urinary bladder 851565887 Active 2022 Clara stapleton MD [address], [place], [address] , [place] [facility] [place] [facility] 3 15:46:30 Low back pain 717797986 Active 2022 Clara stapleton MD [address], [place], [address] , [place] [facility] [place] [facility] 3 15:49:26 Thyroid nodule 421966075 Active 2022 Clara stapleton MD [address], [place], [address] , [place] [facility] [place] [facility] 3 09:52:31 Vertebral artery stenosis 00056064 Active 2022 Clara stapleton MD [address], [place], [address] , [place] [facility] [place] [facility] 3 09:54:50 Visual impairment 227837748 Active 2022 Clara stapleton MD [address], [place], [address] , [place] [facility] [place] [facility] 3 10:01:59 Cerebrovascul ar accident 301657877 Active 2022 Aidee trinidad, [place] [facility] [place] [facility] 3 12:25:16 Chronic obstructive pulmonary disease 24267604 Active 2023 Clara stapleton MD [address], [place], [address] , [place] [facility] [place] [facility] 4 18:22:21 Nausea 571871736 Active 2023 Clara stapleton MD [address], [place], [address] , [place] [facility] [place] [facility] 4 18:22:22 Hyperkalemia 25141983 Active 2023 Clara stapleton MD [address], [place], [address] , [facility] [place] [facility] 4 18:27:13 Proteinuria 55009440 Active 2023 Clara stapleton MD [address], [place], [address] , [facility] [place] [facility] 4 18:28:04 Hypothyroidis m 67099125 Active 2023 Clara stapleton MD [address], [place], [address] , [facility] 4 18:29:42 Solitary nodule of lung 898487081 Active 2023 Miguel Barrios MD [address], [place], [address] , [facility] 4 11:48:49 Chronic cough 86075830 Active 2023 Miguel Barrios MD [address], [place], [address] , [facility] 4 11:48:59 Hypocalcemia 4092684 Active 2023 Jodi Spencer MA null, [place] [facility] [place] [facility] 4 14:32:09 Hyperthyroidi sm 41631570 Active 2023 Jodi Spencer MA null, [place] [facility] [place] [facility] 4 14:36:30 Liver enzymes level above reference range 278689253 Active 2023 Jodi Spencer MA null, [place] [facility] [place] [facility] 4 14:38:30 Platelet count outside reference range 225065717 Active 2023 Jodi Spencer MA null, [place] [facility] [place] [facility] 4 16:53:46 Cobalamin deficiency 144831660 Active 2023 Josie Slaughter MA null, [place] [facility] [place] [employer] [facility] 4 17:32:06 Acute bronchitis 87360748 Active 2023 VIELKA Gupta, [employer] [facility] [employer] [facility] 4 12:31:56 Hyperlipidemi a 62070850 Active 2018 Not Available Replaced by [facility] 3 06:53:10 Osteoporosis 77140577 Active 2021 Not Available [facility] 3 06:53:10 Diabetes mellitus 03157504 Active 2018 Not Available [facility] 3 06:53:10 Notes:Medical History: 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 Procedures Surgical History Date Name Laterality Status Provider Name and Address Organization Details Recorded Time 10/12/19 Medicare Wellness CPT Code, subsequent completed Desmond Rojas LPN [place] [employer] 10/12/2023 08:19:01 10/12/19 Advanced Care Planning completed Desmond Rojas LPN [employer] 10/12/2023 16:14:47 02/22/20 Transitional_Care _Management completed STACEY Berkowitz [address] [facility], [address], [address], [facility] [employer] [facility] [employer] 02/21/2023 15:45:18 01/05/20 procedure on urinary bladder completed Not Available [facility] 07/20/2022 04:42:53 11/11/19 procedure on urinary bladder completed Not Available [facility] 07/20/2022 04:42:53 07/15/19 procedure on urinary bladder completed Not Available [facility] 07/20/2022 04:42:53 09/12/19 19 transurethral excision of neoplasm of urinary bladder completed Not Available Replaced by [facility] 07/20/2022 04:42:53 01/17/20 18 transurethral excision of neoplasm of urinary bladder completed Not Available [facility] 07/20/2022 04:42:53 01/17/20 18 Cystoscopy and treatment completed Not Available [facility] 07/20/2022 04:42:53 10/26/19 18 Cystoscopy and treatment completed Not Available Replaced by [facility] 07/20/2022 04:42:53 03/20/20 17 Tlh w/t/o 250 g or less completed Not Available Replaced by [facility] 07/20/2022 04:42:53 03/20/20 17 robotic assisted surgery completed Not Available Replaced by [facility] 07/20/2022 04:42:53 Tubal Ligation completed Not Available [facility] 07/20/2022 04:42:53 transurethral excision of neoplasm of urinary bladder completed Not Available Replaced by [facility] 07/20/2022 04:42:53 excision of urinary bladder completed Marbella Reyes MA [place] [employer] [facility] [employer] [facility] 02/21/2023 14:20:24 tonsillectomy completed MARIXA Faith [place] [employer] [facility] [employer] [facility] 09/06/2023 12:51:39 Imaging Results Imaging Date Name Status LastModified by Organization Details LastModified Time 07/27/2023 US, echocardiogram completed [email or web address] [facility] [address], [place], [address], 08/31/2023 11:13:49 07/27/2023 imaging/diagnostic result active [facility] [address], [place], [address], 07/27/2023 12:41:40 07/26/2023 US, duplex, carotid artery completed [email or web address] [facility] [address], [place], [address], 08/31/2023 11:14:19 07/26/2023 imaging/diagnostic result active [facility] [address], [place], [address], 07/27/2023 12:45:11 08/10/2023 US, abdomen, limited completed [email or web address] [facility] (Imaging) [address] [place], [address], 09/05/2023 11:51:10 08/10/2023 US, liver completed [email or web address] [facility] [address] [place], [address], 09/05/2023 11:51:10 08/10/2023 US, head + neck, soft tissue completed [email or web address] [facility] (Imaging) [address] [place], [address], 09/05/2023 11:45:32 08/10/2023 US, thyroid completed [email or web address] [facility] [address] [place], [address], 09/05/2023 11:51:11 09/29/2023 NM, myocardial perfusion scan active [email or web address] [facility] [address], [place], [address], 12/07/2023 12:34:17 09/29/2023 imaging/diagnostic result active [facility] [address], [place], [address], 09/29/2023 19:04:49 12/20/2023 imaging/diagnostic result active [address], [address], 12/20/2023 10:57:33 12/20/2023 fine needle aspiration, ultrasound guided, thyroid (PROC) completed [address], [address], 12/21/2023 09:56:14 12/20/2023 fine needle aspiration completed [address], [address], 12/22/2023 11:10:30 12/20/2023 fine needle aspiration, ultrasound guided, thyroid (PROC) completed [email or web address], [place], [address], 12/25/2023 08:08:43 08/17/2024 LDCT, chest, for lung cancer screening active [facility] [address] [facility] [address], [place], [address], 08/19/2024 07:46:17 Procedure Notes None recorded. Medical Equipment None [...] THE OTHER HALF AT 5 AM ON 08/28 completed Not Available Not Available Not Available [...] and Address Organization Details Last Updated DateTime 167.64 cm 18.7 kg/m2 71214.7 1 g 98.1 [degF] 67 /min 98 % 98 % 124 mm[Hg] 68 mm[Hg] Josie Slaughter MA [place] [employer] [facility] [employer] 11:23:04 Date Recorded Heart rate Respiratory rate Provider N calvin and Address Organization Details Last Updated DateTime 07/31/2023 67 /min 15 /min Miguel Barrios MD [address] [place] [address], [address], [place] [employer] [facility] [employer] 07/31/2023 11:32:14 Date Recorded Body height Body mass index (BMI) Body weight Provider Name and Address Organization Details Last Updated DateTime 09/28/2023 167.64 cm 20.7 kg/m2 50410.54 g Demetria Padilla RN [place] [facility] [employer] [facility] 09/28/2023 11:44:05 Date Recorded Body height Body mass index (BMI) Body weight Body temperature Heart rate Systolic blood pressure Diastolic blood pressure Provider Name and Address Organization Details Last Updated DateTime 4 167.64 cm 20.2 kg/m2 21573.0 5 g 97.4 [degF] 78 /min 122 mm[Hg] 60 mm[Hg] 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 [facility] [employer] [facility] 4 15:23:39 Date Recorded Pain severity - 0-10 verbal numeric rating [Score] - Reported Provider Name and Address Organization Details Last Updated DateTime 10/12/2023 0 Desmond Rojas LPN [facility] [employer] [facility] 10/12/2023 16:05:59 Date Recorded Body height Body mass index (BMI) Body weight Body temperature Heart rate Respiratory rate Oxygen saturation Oxygen saturation in Arterial blood by Pulse oximetry Pain severity - 0-10 verbal numeric rating [Score] - Reported Systolic blood pressure Diastolic blood pressure Provider Name and Address Organization Details Last Updated DateTime 4 167.64 cm 22.3 kg/m2 34598.7 5 g 97.8 [degF] 88 /min 16 /min 95 % 95 % 0 124 mm[Hg] 62 mm[Hg] Desmond Rojas LPN [facility] [employer] [facility] 4 15:22:31 Date Recorded Body height Body mass index (BMI) Body weight Body temperature Heart rate Systolic blood pressure Diastolic blood pressure Provider Name and Address Organization Details Last Updated DateTime 5 167.64 cm 22.4 kg/m2 18459.3 4 g 97.5 [degF] 84 /min 132 mm[Hg] 60 mm[Hg] 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 [facility] [employer] [facility] 5 15:45:13 Social History Question Answer Notes LastModified by Organization Details LastModified Time Tobacco Smoking Status Current Every Day Smoker Not Available [facility] 07/20/2022 04:33:42 Do You Have An Advance Directive? No Patient Given Informati on. Information not available 10/12/2023 What Is Your Level Of Alcohol Consumption? None [id number] Information not available 07/20/2022 Are You Blind Or Do You Have Difficulty Seeing? No [id number] Information not available 07/20/2022 What Is Your Level Of Caffeine Consumption? Occasional [id number] Information not available 07/20/2022 How Much Tobacco Do You Chew? None [id number] Information not available 07/20/2022 In The 14 Days Before Symptom Onset, Have You Had Close Contact With A Laboratory-confi rmed COVID-19 While That Case Was Ill? No [id number] Information not available 07/20/2022 In The 14 Days Before Symptom Onset, Have You Had Close Contact With A Person Who Is Under Investigation For COVID-19 While That Person Was Ill? No [id number] Information not available 07/20/2022 Are You Currently Employed? No Information not available 07/27/2023 Are You Deaf Or Do You Have Serious Difficulty Hearing? No MIGRATION.0301 [id number] Information not available 07/20/2022 What Type Of Diet Are You Following? REGULAR MIGRATION.030 [id number] Information not available 07/20/2022 Which Illicit Or Recreational Drugs Have You Used? None MIGRATION.0301 [id number] Information not available 07/20/2022 Do You Or Have You Ever Used E-cigarettes Or Vape? Former User Of Electronic Cigarettes Vape MIGRATION.030 912770 Information not available 07/20/2022 What Is The Highest Grade Or Level Of School You Have Completed Or The Highest Degree You Have Received? [id number] [email or web address] Information not available 10/12/2023 Do You Have An Electrostatic Air Filter? No Information not available 07/31/2023 What Is Your Occupation? Retired MIGRATION.0301 018769 Information not available 07/20/2022 Have There Been Any Changes To Your Family Or Social Situation? No MIGRATION.0301 635284 Information not available 07/20/2022 What Is The Fluoride Status Of Your Home? Unknown Information not available 10/12/2023 Are There Any Guns Present In Your Home? No MIGRATION.0301 492550 Information not available 07/20/2022 Do You Have A Humidifier? No Information not available 07/31/2023 Do You Use Insect Repellent Routinely? No MIGRATION.0301 742520 Information not available 07/20/2022 Where Do You Live? [facility] MIGRATION.0301 738592 Information not available 07/20/2022 Presence Of Domestic Violence No Information not available 10/12/2023 Guns Present In The Home? No [email or web address] Information not available 10/12/2023 Are You Able To Care For Yourself? Yes [email or web address] Information not available 10/12/2023 Are You Blind Or Do Yo Have Difficulty Seeing? No [email or web address] Information not available 10/12/2023 Are You Deaf Or Do You Have Serious Difficulty Hearing? No Information not available 10/12/2023 General Stress Level? Low [email or web address] Information not available 10/12/2023 Live Alone Of With Others? With Others Lives With Daughter. [email or web address] Information not available 10/12/2023 Do You Have A Medical Power Of Telecom Coordinator? No MIGRATION.0301 748327 Information not available 07/20/2022 Do You Have Moisture Problems In Your Home? No Information not available 07/31/2023 What Was The Date Of Your Most Recent Tobacco Screening? 06/13/2024 Information not available 06/13/2024 What Is Your Current Pack Years? [email or web address] MIGRATION.0301 434805 Information not available 07/20/2022 Do You Have Any Pets? Yes MIGRATION.0301 716524 Information not available 07/20/2022 What Is Your Relationship Status? MIGRATION.0301 236278 Information not available 07/20/2022 Do You Use Your Seat Belt Or Car Seat Routinely? Yes Information not available 07/31/2023 Do You Have Smoke And Carbon Monoxide Detectors In Your Home? Yes MIGRATION.0301 802263 Information not available 07/20/2022 At What Age Did You Start Smoking Tobacco? 14 MIGRATION.0301 270552 Information not available 07/20/2022 Are You Passively Exposed To Smoke? Yes [email or web address] Information not available 10/12/2023 Do You Or Have You Ever Used Smokeless Tobacco? Never Used Smokeless Tobacco MIGRATION.0301 953687 Information not available 07/20/2022 Are There Any Smokers In Your House? Yes MIGRATION.0301 854601 Information not available 07/20/2022 How Much Tobacco Do You Smoke? 1 PPD MIGRATION.0301 635333 Information not available 07/20/2022 Do You Feel Stressed (tense, Restless, Nervous, Or Anxious, Or Unable To Sleep At Night)? [id number] [email or web address] Information not available 10/12/2023 Do You Use Any Illicit Or Recreational Drugs? No MIGRATION.0301 000776 Information not available 07/20/2022 Do You Use Sunscreen Routinely? No MIGRATION.0301 098780 Information not available 07/20/2022 Has Tobacco Cessation Counseling Been Provided? Yes [email or web address] Information not available 10/12/2023 On What Date Was Tobacco Cessation Counseling Provided? 10/12/2023 [email or web address] Information not available 10/12/2023 How Many Years Have You Smoked Tobacco? 47 MIGRATION.0301 378126 Information not available 07/20/2022 Have You Recently Traveled Abroad? No MIGRATION.0301 557147 Information not available 07/20/2022 Do You Have Any Dietary Restrictions? No MIGRATION.0301 437303 Information not available 07/20/2022 Do You Or Have You Ever Used Any Other Forms Of Tobacco Or Nicotine? Yes MIGRATION.0301 594954 Information not available 07/20/2022 Sex: Female Functional Status Question Answer Note LastModified by [employer] Your Car ion Details LastModified Time Do you have difficulty walking or climbing stairs? No MIGRATION.66500 36028 Information not available 07/20/2022 Do you have transportation difficulties? No MIGRATION.12008 60796 Information not available 07/20/2022 Are you able to walk? YESWOREST MIGRATION.77027 90008 Information not available 07/20/2022 Do you have difficulty doing errands alone? No MIGRATION.83300 37450 Information not available 07/20/2022 Are you able to care for yourself? Yes MIGRATION.90817 26626 Information not available 07/20/2022 Do you have difficulty dressing or bathing? No MIGRATION.99261 22437 Information not available 07/20/2022 What is your exercise level? Occasional active lifestyle MIGRATION.33272 60175 Information not available 07/20/2022 Mental Status Question Answer Note LastModified by [employer] Your Car ion Details LastModified Time Do you have difficulty concentrating, remembering or making decisions? No MIGRATION.[id number] 6 Information not available 07/20/2022 Family History Relationship Description Onset Age of this Age Resolved Age Notes LastModified by Organization Details LastModified Time Father Hypertensive disorder MIGRATION.714 [id number] Not available 07/20/2022 04:42:59 Father Cerebrovascu lar accident [email or web address] Not available 0 06/13/2024 15:09:41 Mother Diabetes mellitus MIGRATION.340 [id number] Not available 07/20/2022 04:42:59 Sister Leukemia Not availa ble 06/13/2024 15:09:41 Sister Disorder of thyroid gland PT REPORT S THAT HER SISTER TAKES THYROI D MEDICA TION [email or web address] Not available 10/12/2023 15:00:13 Maternal Uncle Heart disease 1 1 [email or web address] Not available 2023 11:51:03 Brother Leukemia [email or web address] Not avail able 06/13/2024 15:09:41 Medical History Condition Response NERVE DISEASE N BLINDNESS N RHEUMATIC FEVER N KIDNEY STONES N BLADDER PROBLEMS N MRSA N OTHER # 1 N POLIO N LUNG DISEASE/DISORDER Y COPD Y RADIATION / CHEMOTHERAPY N Other # 2 N BLOOD DISEASES N EAR OR HEARING PROBLEMS N MUMPS N BOWEL PROBLEMS N DEPRESSION (INCLUDING POST ) N STROKE/TIA N ULCERS N BENIGN PROSTATIC HYPERPLASIA N MEASLES N MYOCARDIAL INFARCTION N OBESITY N GERD/NAUSEA N ANEURYSM N URINARY/BLADDER/KIDNEY PROBLEMS Y CORONARY ARTERY DISEASE (CAD) N ADDICTION CONCERNS N ENDOMETRIOSIS N Impotence N USE OF BLOOD THINNERS N SKIN [...] GLAUCOMA N FOOT PROBLEM N DIVERTICULITIS N CHICKENPOX N SLEEP APNEA N INFECTIOUS DISEASE N PROSTATE N HEART ARRHYTHMIA N INSOMNIA N HIGH CHOLESTEROL / HYPERLIPIDEMIA Y EYE PROBLEMS N HYPERTHYROIDISM N EDEMA N CHRONIC PAIN SYNDROME N HYPOTHYROIDISM N CONSTIPATION N CAROTID BLOCKAGE N BACK / NECK PROBLEMS N HAVE YOU BEEN HOSPITALIZED OR SEEN IN [facility] IN THE PAST YEAR ? Y ATHEROSCLEROSIS N BREAST PROBLEMS N DIALYSIS N ECZEMA N OSTEOPOROSIS N ARTHRITIS N APPENDICITIS N DIABETES, TYPE Y BAD TEETH N ENT N HEARTBURN / REFLUX N AUTISM SPECTRUM DISORDER (ASD) N HEPATITIS / LIVER DISEASE N GOUT N SLEEP DISORDER N ALZHEIMER'S DISEASE N Brain Problems N HERPES N DEMENTIA N HEADACHES/MIGRAINES N SEIZURES/EPILEPSY N VASCULAR DISEASE N PACEMAKER N Blood Disorder N DIZZINESS N HEART DISEASE/HEART PROBLEMS N KIDNEY DISEASE N MULTIPLE SCLEROSIS N CARDIAC ARRHYTHMIA N CANCER: SPECIFY Y ATRIAL FIBRILLATION N Gall Stones N PULMONARY [...] high-dose, quadrivalent, PF 2 completed Not Available Replaced by [facility] 01/17/2023 04:09:30 COVID-19, mRNA, LNP-S, PF, 100 mcg/0.5mL dose or 50 mcg/0.25mL dose 1 completed Not Available Replaced by [facility] 01/17/2023 04:09:30 COVID-19, mRNA, LNP-S, PF, 100 mcg/0.5mL dose or 50 mcg/0.25mL dose 1 completed Not Available Replaced by [facility] 01/17/2023 04:09:30 COVID-19, mRNA, LNP-S, PF, 100 mcg/0.5mL dose or 50 mcg/0.25mL dose 1 completed Not Available [facility] 01/17/2023 04:09:30 Pneumococcal conjugate PCV20, polysaccharide BKN131 conjugate, adjuvant, PF 2 completed Not Available [facility] 01/17/2023 04:09:30 Influenza, high-dose, quadrivalent, PF 1 completed Not Available [facility] 01/17/2023 04:09:30 Influenza, split virus, quadrivalent, PF 9 completed Not Available [facility] 01/17/2023 04:09:31 Influenza, high-dose, quadrivalent, PF 3 completed Clara Barber MD [address], [place], [address], [place] [facility] 05/09/2023 14:02:28 Influenza, high-dose, trivalent, PF 4 completed 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 null, [place] [facility] 02/15/2024 16:06:54 Past Encounters Encounter ID Performer Location Encounter Start Date Encounter Closed Date Diagnosis/Indication Diagnosis SNOMED-CT Code Diagnosis ICD10 Code Diagnosis Note [id number] [facility] [place] [address] [address] 09/10/2020 00:00:00 09/10/2020 13:24:11 [id number] [facility] [place] [address] [place] [address] [address] [address] 10/26/2020 00:00:00 10/26/2020 15:38:10 [id number] [facility] [place] [address] [place] [address] Ave[address] [address] 01/26/2021 00:00:00 01/26/2021 20:34:41 [id number] [facility] [place] [address] [place], [place] [address]e., [facility] 15 [place] [address] 04/13/2021 00:00:00 04/13/2021 11:52:13 [id number] [facility] [place] [address] [place] [address] Ave[address] [facility] 15 [place] [address] 09/06/2021 00:00:00 09/06/2021 15:03:42 [id number] [facility] [place] [address] [place] [address] Ave[address] [address] 01/10/2022 00:00:00 01/10/2022 14:21:12 [id number] [facility] [place] [address] [place] [address] [address] [address] 05/06/2022 00:00:00 05/06/2022 15:46:21 [id number] Vanan Dave, [facility] [address] [place] [address] 11/07/2022 13:58:49 11/07/2022 14:26:23 Acid reflux 668021596 K21.9 on omeprazole , she is aware of risks, benefits, side effects Type 2 natan betes mellitus without complication 267429513 E11.9 on victoza, metformin pt is aware of side effects, risks, benefitspt denies any personal or family history of MEN II or MTC, denies and personal history of pancreatit ispt knows to call the office if any severe n/v or abdominal pain DM eye exam and daily foot checks recommende d Hyperlipidemia 95817997 E78.5 on atorvastat in Nicotine dependence 5629 4008 F17.200 3 minutes spent with patient discussing risks, cessation options. Patient encouraged to quit. LDCT- 09/2021 Chest pain 19223884 R07. 9 She did see cardiology - Dr. Rivas has not done her echo or her stress Tran in the interim if pain recurs Chronic ob structive pulmonary disease 15727114 J44.9 on proair prn, didn't case picker the Anoro, doesn't think she needs it Steatosis of liver 80263 1007 K76.0 incidental ly noted on LDCT, declines any referral or liver u/s Multiple n odules of lung 790324209 R91.8 Next LDCT due 09/2022 History of malignant neoplasm of bladder 756984524 Z85.51 follows urology at [facility] Well woman health check declined 607073326 Z53.20 risks explained including missed cancer and Screening for malignant neoplasm of colon 980453138 Z12.11 Pt refuses screening colonoscop y but agrees to Cologuard. All risks explained to her, including that Cologuard may miss 8% of cancers.Sh betsy reports she has the box at home, encouraged her to do this Osteoporosis 64889435 M8 1.0 on alendronat eshe is aware to take with a full glass of water and not lie down for 60 min after taking on OTC calcium, vitamin d weight bearing exercise recommende d Heart murmur 06751584 R0 1.1 get re-estabis hed with cardiology as above Adult heal th examination 015027112 Z00.01 Depression screening 171 801048 Z13.31 Screening mammography 24 553715 Z12.31 Vitamin D deficiency 347 09777 E55.9 on OTC supplement [id number] STACEY Berkowitz [facility] [address] [facility], [address] [place] [address] 02/21/2023 14:02:58 02/21/2023 14:49:38 Transition of care [id number] 105 Z75.8 History of total cystectomy 129474901 Z90.6 has upcoming appt with surgeon on ordered Sepsis 74151856 A41.9 currently has PICC linefollow ing [facility] at [facility]'s daugther will call today to get her follow up appt scheduled Acid reflux 553210013 K2 1.9 on omeprazole , she is aware of risks, benefits, side effects Type 2 natan betes mellitus without complication 767177404 E11.9 on victoza, metformin pt is aware of side effects, risks, benefitspt denies any personal or family history of MEN II or MTC, denies and personal history of pancreatit ispt knows to call the office if any severe n/v or abdominal pain DM eye exam and daily foot checks recommende d Hyperlipidemia 19284471 E78.5 on atorvastat in Nicotine dependence 5629 4008 F17.200 3 minutes spent with patient discussing risks, cessation options. Patient encouraged to quit. LDCT- 09/2021- was ordered 10/2022 Chest pain 06683117 R07. 9 She did see cardiology - Dr. Rivas has not done her echo or her stress Tran in the interim if pain recurs Chronic ob structive pulmonary disease 70029165 J44.9 on proair prn, didn't case picker the Anoro, doesn't think she needs it Steatosis of liver 1007 K76.0 incidental ly noted on LDCT, declines any referral or liver u/s Multiple n odules of lung 252141171 R91.8 Next LDCT due 09/2022 History of malignant neoplasm of bladder 769668653 Z85.51 follows urology at [facility] woman health check declined 870133506 Z53.20 risks explained including missed cancer and Screening for malignant neoplasm of colon 951314321 Z12.11 Pt refuses screening colonoscop y but agrees to Cologuard. All risks explained to her, including that Cologuard may miss 8% of cancers.Sh betsy reports she has the box at home, encouraged her to do this was ordered 10/2022 Osteoporosis 71669354 M8 1.0 on alendronat eshe is aware to take with a full glass of water and not lie down for 60 min after taking on OTC calcium, vitamin d weight bearing exercise recommende d Screening mammography 24 333902 Z12.31 was ordered 10/2022 Vitamin D deficiency 347 63112 E55.9 on OTC supplement Muscle weakness 36008733 M62.81 she will benefit from walker to assist with safely completing her ADLs both in and out of the house Abdominal abscess 318053 08 K65.1 as above [id number] Clara stapleton MD [facility] [address] [facility], [address] [place] [address] 04/20/2023 15:18:46 04/20/2023 16:21:10 Screening - NAD 068984623 Z13.9 C-scope: cologuard was ordered 11/07/2022 , [...] above Screening for malignant neoplasm of breast 596442801 Z12.39 Gynecologi c examination 67431174 Z01.419 Chronic ob structive pulmonary disease 95920259 J44.9 Seen on LDCTGet a referral to Dr Barrios Smoker 55644197 F17.200 Advised to quit smoking! LDCT 09/28/2021 : Emphysema, CAD Coronary arteriosclerosis 73093186 I25.10 Seen on LDCT, get a referral to cardiology Type 2 natan betes mellitus without complication 062653264 E11.9 On jardiance 25mg dailyOn metformin 500mg bidOn victozaGet labs Essential hypertension 43505472 I10 On lisinopril 2.5mg daily Hyperlipidemia 41387571 E78.5 On atorvastat in 40mg dailyGet labs Serum johny min B12 below reference range 497708166 R79.89 Vitamin D deficiency 347 81246 E55.9 Gastroesop hageal reflux disease without esophagitis 148803573 K21.9 On omeprazole Get an EGD done Malignant neoplasm of urinary bladder 530135895 C67.9 Dr Rodríguez urologyS/p surgeryNow has cath and bag Nausea 939760782 R11.0 On zorfran PRN Low back pain 300564522 M54.50 Get xrays, may need to see pain management Screening for malignant neoplasm of colon 010043831 Z12.11 Administra tion of influenza vaccine 87796902 Z23 Screening mammography 24 875669 Z12.31 [id number] Clara stapleton MD [facility] [address] [facility], [address] [place] [address] 07/27/2023 11:50:21 07/27/2023 12:37:47 Screening - NAD 609041987 Z13.9 C-scope: cologuard was ordered 11/07/2022 , [...] ing of the above Gynecologi c examination 04260793 Z01.419 Chronic ob structive pulmonary disease 35904280 J44.9 LDCT 06/14/2023 : Next in one year Dr Barrios apt 07/31/2023 Smoker 91943736 F17.200 Advised to quit smoking! LDCT 09/28/2021 : Emphysema, CADLDCT 06/14/2023 : Next in one year Coronary arteriosclerosis 74913492 I25.10 Seen on LDCT, get a referral to cardiology Type 2 natan betes mellitus without complication 030570432 E11.9 On jardiance 25mg dailyOn metformin 500mg bid, will d/c this also as she has noted some low sugars and A1C is stable on 07/05/2023 Off the victozaGet labs Essential hypertension 54676816 I10 On lisinopril 2.5mg daily Hyperlipidemia 89601006 E78.5 On atorvastat in 40mg dailyDiet and exercise is neededGet labs Serum johny min B12 below reference range 213006568 R79.89 Get on B12 weekly for 4 weeks and then monthly for 3 months and repeat the labs Vitamin D deficiency 347 12609 E55.9 Gastroesop hageal reflux disease without esophagitis 252278049 K21.9 On omeprazole Get an EGD done Malignant neoplasm of urinary bladder 165247226 C67.9 Dr Rodríguez urologyS/p surgeryNow has cath and bag Nausea 580495943 R11.0 On zorfran PRN Low back pain 368893453 M54.50 Get xrays, may need to see pain management Xrays notd 06/14/2023 Screening for malignant neoplasm of colon 976322215 Z12.11 Hyperkalemia 20962064 E8 7.5 Repeat the labs Proteinuria 42221087 R80 .9 Thrombocytosis 9283048 D 75.839 Repeat the labs Hypothyroidism 92239763 E03.9 Get US thyroid and repeat the labsMay need to be on synthroid [id number] Miguel Barrios MD [facility] [place] [address] [facility] 15 [place] [address] 07/31/2023 10:53:34 08/01/2023 09:00:04 Solitary nodule of lung 966422926 R91.1 Chronic cough 87103866 R 05.3 R06.00 T78.40XA D89.9 [id number] Edmar Stout MD [facility] [place] [address] [place] [address] 09/28/2023 11:28:55 09/29/2023 10:51:01 Thyroid nodule 661394364 E04.1 [id number] Clara stapleton MD [facility] [address] [facility], [facility] 15 [place] [address] 10/12/2023 14:59:09 10/12/2023 16:08:46 Screening - NAD 067805613 Z13.9 C-scope: cologuard was ordered 11/07/2022 , [...] ing of the above Gynecologi c examination 10389131 Z01.419 Chronic ob structive pulmonary disease 61892142 J44.9 LDCT 06/14/2023 : Next in one year Dr Sophie newman 07/31/2023 Smoker 74172822 F17.200 Advised to quit smoking! LDCT 09/28/2021 : Emphysema, CADLDCT 06/14/2023 : Next in one year Coronary arteriosclerosis 40951969 I25.10 ECHO 07/27/2023 : EF 55%Stress test 09/29/2023 : Negative Dr Graf 2023 : Next apt in 3 months Type 2 natan betes mellitus without complication 738474250 E11.9 On jardiance 25mg dailyOn metformin 500mg bid, will d/c this also as she has noted some low sugars and A1C is stable on 07/05/2023 Off the victozaGet labs Essential hypertension 83960857 I10 On lisinopril 2.5mg daily Hyperlipidemia 59561161 E78.5 On atorvastat in 40mg dailyDiet and exercise is neededGet labs Serum johny min B12 below reference range 156286436 R79.89 Repeat the labs Vitamin D deficiency 347 68979 E55.9 Gastroesop hageal reflux disease without esophagitis 812481014 K21.9 On omeprazole Get an EGD done Malignant neoplasm of urinary bladder 512959637 C67.9 Dr Rodríguez urologyS/p surgeryNow has cath and bag Nausea 045579269 R11.0 On zorfran PRN Low back pain 533897359 M54.50 Get xrays, may need to see pain management Xrays notd 06/14/2023 Screening for malignant neoplasm of colon 955753896 Z12.11 Hyperkalemia 72465042 E8 7.5 Repeat the labs Proteinuria 32103392 R80 .[address] Eligio Sanchez calcitriol On VIT DOn fosamax Thrombocytosis 7202268 D 75.839 Repeat the labs Hypothyroidism 53277081 E03.9 US thyroid 08/10/2023 : Get FNACGet on synthroid Adult heal th examination 234927837 Z00.00 Screening for disorder 105006080 Z13.9 Thyroid nodule 559343569 E04.1 Dr Stout 09/28/2023 to get FNAC [id number] Clara stapleton MD [facility] [address] [facility] [place] [address] 02/15/2024 15:12:37 02/15/2024 16:04:44 Chronic obstructive pulmonary disease 73429826 J44.9 LDCT 06/14/2023 : Next in one year Dr Barrios apt 07/31/2023 Screening - NAD 41661764 3 Z13.9 C-scope: cologuard was ordered 11/07/2022 [...] ing of the above Gynecologi c examination 53060209 Z01.419 Smoker 29380343 F17.200 Advised to quit smoking! LDCT 09/28/2021 : Emphysema, CADLDCT 06/14/2023 : Next in one year Coronary arteriosclerosis 32350086 I25.10 ECHO 07/27/2023 : EF 55%Stress test 09/29/2023 : Negative Dr Graf 2023 : Next apt in 3 months Type 2 natan betes mellitus without complication 521514221 E11.9 On jardiance 25mg dailyOn metformin 500mg bid, was told d/c this also as she has noted some low sugars and A1C was stable on 07/05/2023 , however she is still taking thisOff the victozaGet labs Essential hypertension 26322061 I10 On lisinopril 2.5mg daily Hyperlipidemia 96142857 E78.5 On atorvastat in 40mg dailyDiet and exercise is neededGet labs Serum johny min B12 below reference range 934341632 R79.89 Repeat the labs Vitamin D deficiency 347 06124 E55.9 Gastroesop hageal reflux disease without esophagitis 570906135 K21.9 On omeprazole Get an EGD done Malignant neoplasm of urinary bladder 950689006 C67.9 Dr Rodríguez urologyS/p surgeryNow has cath and bag Nausea 467809222 R11.0 On zorfran PRN Low back pain 292710000 M54.50 Get xrays, may need to see pain management Xrays notd 06/14/2023 Screening for malignant neoplasm of colon 371115834 Z12.11 Proteinuria 86683397 R80 .[address] Eligio Sanchez calcitriol On VIT DOn fosamax Thrombocytosis 5775775 D 75.839 Repeat the labs Hypothyroidism 23979352 E03.9 US thyroid 08/10/2023 : Get FNACS/p bx: Neg 12/27/[address] Pineda et labs Screening for osteoporosis 727756048 Z13.820 Administra tion of influenza vaccine 45563928 Z23 [id number] Clara stapleton MD [facility] [place] [address] [facility] [address] [place] [address] 06/13/2024 15:05:05 06/13/2024 16:32:42 Chronic obstructive pulmonary disease 56705197 J44.9 LDCT 06/14/2023 : Next in one year Dr Sophie newman 07/31/2023 Screening - NAD 65667854 3 Z13.9 C-scope: cologuard was ordered 11/07/2022 [...] ing of the above Gynecologi c examination 84022439 Z01.419 Smoker 18955022 F17.200 Advised to quit smoking! LDCT 09/28/2021 : Emphysema, CADLDCT 06/14/2023 : Next in one year Coronary arteriosclerosis 38543135 I25.10 ECHO 07/27/2023 : EF 55%Stress test 09/29/2023 : Negative Dr Graf 2023 : Next apt in 3 months Type 2 natan betes mellitus without complication 417990286 E11.9 On jardiance 10mg dailyOn metformin 500mg bid, was told d/c this also as she has noted some low sugars and A1C was stable on 07/05/2023 , however she is still taking thisOff the victozaGet labsMore diet and exercise Essential hypertension 12783887 I10 On lisinopril 2.5mg daily Hyperlipidemia 94496078 E78.5 On atorvastat in 40mg dailyDiet and exercise is neededGet labs Serum johny min B12 below reference range 571502343 R79.89 Repeat the labs Vitamin D deficiency 347 56894 E55.9 Gastroesop hageal reflux disease without esophagitis 771003227 K21.9 On omeprazole Get an EGD done Malignant neoplasm of urinary bladder 220537526 C67.9 Dr Rodríguez urologyS/p surgeryNow has cath and bag Nausea 780108999 R11.0 On zorfran PRN Low back pain 463337638 M54.50 Get xrays, may need to see pain management Xrays notd 06/14/2023 Screening for malignant neoplasm of colon 316524013 Z12.11 Proteinuria 36683892 R80 [address] Eligio Sanchez calcitriol On VIT DOn fosamax Thrombocytosis 6602449 D 75.839 Repeat the labsAlso refer to hematology Hypothyroidism 11715027 E03.9 US thyroid 08/10/2023 : Get FNACS/p bx: Neg 12/27/[address] Pineda et labs Screening for osteoporosis 983828162 Z13.820 Screening mammography 24 170041 Z12.31 Cigarette smoker 6251030 7 F17.210 Health Concerns Section Related Observation LastModified by Organization Detai ls LastModified Time None Recorded Concern Status LastModified by Organization Details LastModified Time None Recorded Advance Directives Directive N: Patient given information . Payers Encounter Date Sequence Insurance Name Policy Number Policy Terry Covered Member ID Terry Member ID Guarantor Name 07/31/2023 1 [facility] (MEDICARE REPLACEMENT/A DVANTAGE - PPO) [id number] Dea Perez [id number] Dea Perez 07/31/2023 2 [place] [facility] Dea Perez [id number] Dea Perez 09/28/2023 1 [facility] (MEDICARE REPLACEMENT/A DVANTAGE - PPO) [id number] Dea Perez [id number] Dea Perez 09/28/2023 2 [place] [facility] Dea Perez [id number] Dea Perez 10/12/2023 1 [facility] (MEDICARE REPLACEMENT/A DVANTAGE - PPO) [id number] Dea Perez [id number] Dea Perez 10/12/2023 2 [place] [facility] Dea Perez [id number] Dea Perez 02/15/2024 1 [facility] (MEDICARE REPLACEMENT/A DVANTAGE - PPO) [id number] Dea Perez [id number] Dea Perez 02/15/2024 2 [place] [facility] Dea Perez [id number] Dea Perez 06/13/2024 1 [facility] (MEDICARE REPLACEMENT/A DVANTAGE - PPO) [id number] Dea Perez [id number] Dea Perez 06/13/2024 2 [place] [facility] Dea Perez [id number] Dea Perez Notes Date Note Type Note Provider Name and Address Organization Details Recorded Time 07/31/2023 text/html Primary care/Ref erring provider: Clara Barber MD CC: I have an abnormal [...] Heartburn: no Edema: no Modified [employer] (mMRC) Dyspnea Scale - Grade 1 Grade [...] 2 years in between) 69 pack years Rudd: no Dye: no Dust mites: yes Mold: no Damp basement: no Wood burning stove: no Animal dander: dogs Cockroaches: no Pollen: yes Arsenic: no Asbestos: no Beryllium: no Cadmium: no Chromium: no Sauk smoke: no Diesel fumes: no Nickel: no [...] patient has a slight chance of dozing. Miguel Barrios MD [address] [facility], [place], [address], [employer] 07/31/2023 12:00:36 09/28/2023 text/html this patient had a thyroid ultrasound due to hypothyroidism. She was found to have 3 nodules on her right and 1 nodule on the left lobe of the thyroid. The nodules were TI-RADS 4 and the largest nodule was 2.1 cm on the right side and a needle biopsy was recommended. Her sister also has hypothyroidism. Edmar Stout MD [address], [address], [place], [address], [employer] 09/28/2023 17:00:11 10/12/2023 text/html OV 04/20/2023: H [...] she is here with her daughter Joyce Elizabeth MD Elisabeth [address], [address], [place], [address], [employer] 10/12/2023 16:33:38 02/15/2024 text/html OV 04/20/2023: H [...] is here with Joyce Barber MD [address], [address], [place], [address], [employer] 02/19/2024 18:30:08 06/13/2024 text/html OV 04/20/2023: H ere to establish care Past Hx:HTNHLDDMIIGERDS/p bladder surgerySmPearl Reviewed social family and surgical history Here [...] the labs, she is here with Joyce OV 06/13/2024: Here for her f/u apt, she is doing well today, she has done the labs but these are not yet reported Clara Barber MD [address], [address], [place], [address], [employer] 06/13/2024 18:30:21 OBGyn Episode No OBEpisode recorded.
--- OUTSIDE RECORDS SUMMARY | 2024-09-05 10:36 | XMS_ITS | Encounter Summary ---
Author Organization [employer] , [facility] Address [address] [place] [address] Phone Care Team Providers Care Clinical Therapist Name Role Phone Vanna Dave Primary Care Provider Unava ilable Reason for Visit * Reason Comments Med Refill Encounter Details Date Type Department Care Team (Late st Contact Info) Description 09/02/2021 Refill Gilmer June [facility], [address] [address] João [place] [address] [place] [address] Social History Tobacco Use Types Packs/Day [...] on filedocumented in this encounter Care Teams Clinical Therapist Relationship Specialty Start Date End Date Vanna Dave FNP-C PCP - General Nurse Practitioner 02/07/22 documented as of this encounter
--- OUTSIDE RECORDS SUMMARY | 2024-09-05 10:37 | XMS_ITS | Data Portability ---
Author Organization [facility] Address [address] [place] [address] Assessment No assessment recorded. Plan of Treatment Reminders Order Date Submit Date Provider Last Modified By Organization Details Last Modified Time Details Appointments None recorded. Lab culture, urine 2017 018 CHITO MIK, [address] [place], [place] [address], [address], [place], [address], 8 15:15:41 HbA1c (hemoglobi n A1c), blood 2017 018 CHITO MIK, [address] [place] [address], [address], [place], [address], 8 13:11:53 CMP, serum or plasma 2017 018 CHITO MIK, [address] [place] [address], [address], [place], [address], 8 13:11:52 lipid panel, serum 2017 018 CHITO [facility], [address] [place] [address], [address], [place], [address], 8 13:11:53 microalbum in, urine 2017 018 CHITO MIK, [address] [place], [place] [address], [address], [place], [address], 8 13:11:54 TSH + free T4, serum 2017 018 [facility], [address], [address], [place], [address], 8 13:11:52 Referral diabetic ophthalmol ogy referral - Please call patient to schedule appt. Thank you 2017 018 [email or web address] Jamey Dewitt MD, [address], [place], [address], 8 17:02:12 urologist referral - Please call patient to schedule appt. Thank you 2017 018 [email or web address] Not available 8 10:38:52 Procedures None recorded. Surgeries None recorded. Imaging LDCT, chest, for lung cancer screening 2017 018 [facility] ([facility]), [address] [facility], [place], [address], 8 15:52:43 Medication Orders phenazopyr idine 200 mg tablet 2017 018 [email or web address] [id number], [address], [place], [address], 8 16:12:34 ciprofloxa ginny 500 mg tablet 2017 018 [email or web address] [id number], [address], [place], [address], 8 16:12:34 Chantix Starting Month Box 0.5 mg (11)-1 mg (42) tablets in dose pack 2017 018 [email or web address] Not available 8 16:12:34 Blood Glucose Test strips 2017 018 INTERFACE [id number], [address], [place], [address], 8 16:13:29 metformin 500 mg tablet 2017 018 [id number], [address], [place], [address], 8 12:21:37 alcohol swabs 2017 018 [id number], [address], [place], [address], 8 12:21:36 atorvastat in 10 mg tablet 2017 018 [id number], [address], [place], [address], 8 12:21:36 Patient TargetsNo targets recorded. Patient [...] to schedule appt. Thank you Referring Physician: Givoany Mcguire, Internal Medicine, Encounter Date: 09/04/2017 Results Created Date Observation Date Name Description Value Unit Range Abnormal Flag Note LastModifiedBy Organization Detail LastModifiedTime 09/06/19 18 09/06/2017 TSH + free T4, serum TSH 1.720 uIU/m L 0.450- 4.500 Not Available [facility] ([facility]) [address] [place], [address], 09/06/2017 13:11:52 09/06/19 18 09/06/2017 TSH + free T4, serum T4,free(dire ct) 1.00 NG/dL 0.82-1 .77 Not Available [facility] ([facility]) [address] [place], [address], 09/06/2017 13:11:52 09/06/19 18 09/06/2017 CMP, serum or plasm a glucose 161 mg/dL 65-99 above high normal Not Available [facility] ([facility]) [address] [facility], [place], [address], 09/06/2017 13:11:52 09/06/19 18 09/06/2017 CMP, serum or plasm a BUN 11 mg/dL 8-27 Not Available [facility] ([facility]) [address] [place], [address], 09/06/2017 13:11:52 09/06/19 18 09/06/2017 CMP, serum or plasm a creatinine 0.73 mg/dL 0.57-1 .00 Not Available [facility] ([facility]) [address] [facility], [place], [address], 09/06/2017 13:11:52 09/06/19 18 09/06/2017 CMP, serum or plasm a eGFR if nonafricn AM 89 mL/mi n/1.7 3 >59 Not Available [facility] ([facility]) [address] [facility], [place], [address], 09/06/2017 13:11:52 09/06/19 18 09/06/2017 CMP, serum or plasm a eGFR if africn AM 102 mL/mi n/1.7 3 >59 Not Available [facility] ([facility]) [address] [facility], [place], [address], 09/06/2017 13:11:52 09/06/19 18 09/06/2017 CMP, serum or plasm a BUN/creatini ne ratio 15 12-28 Not Available [facility] ([facility]) [address] [place], [address], 09/06/2017 13:11:52 09/06/19 18 09/06/2017 CMP, serum or plasm a sodium 141 mmol/ L 134-14 4 Not Available [facility] ([facility]) [address] [place], [address], 09/06/2017 13:11:52 09/06/19 18 09/06/2017 CMP, serum or plasm a potassium 4.7 mmol/ L 3.5-5. 2 Not Available [facility] ([facility]) [address] [place], [address], 09/06/2017 13:11:52 09/06/19 18 09/06/2017 CMP, serum or plasm a chloride 104 mmol/ L 96-106 Not Available [facility] ([facility]) [address] [place], [address], 09/06/2017 13:11:52 09/06/19 18 09/06/2017 CMP, serum or plasm a carbon dioxide, total 20 mmol/ L 18-29 Not Available [facility] ([facility]) [address] [place], [address], 09/06/2017 13:11:52 09/06/19 18 09/06/2017 CMP, serum or plasm a calcium 9.9 mg/dL 8.7-10 .3 Not Available [facility] ([facility]) [address] [place], [address], 09/06/2017 13:11:52 09/06/19 18 09/06/2017 CMP, serum or plasm a protein, total 7.3 g/dL 6.0-8. 5 Not Available [facility] ([facility]) [address] [place], [address], 09/06/2017 13:11:52 09/06/19 18 09/06/2017 CMP, serum or plasm a albumin 4.5 g/dL 3.6-4. 8 Not Available [facility] ([facility]) [address] [place], [address], 09/06/2017 13:11:52 09/06/19 18 09/06/2017 CMP, serum or plasm a globulin, total 2.8 g/dL 1.5-4. 5 Not Available [facility] ([facility]) [address] [place], [address], 09/06/2017 13:11:52 09/06/19 18 09/06/2017 CMP, serum or plasm a A/G ratio 1.6 1.2-2. 2 Not Available [facility] ([facility]) [address] [facility] [place], [address], 09/06/2017 13:11:52 09/06/19 18 09/06/2017 CMP, serum or plasm a bilirubin, total 0.2 mg/dL 0.0-1. 2 Not Available [facility] ([facility]) [address] [facility] [place], [address], 09/06/2017 13:11:52 09/06/19 18 09/06/2017 CMP, serum or plasm a alkaline phosphatase 102 IU/L 39-117 Not Available [facility] ([facility]) [address] [place], [address], 09/06/2017 13:11:52 09/06/19 18 09/06/2017 CMP, serum or plasm a AST (SGOT) 14 IU/L 0-40 Not Available [facility] ([facility]) [address] [facility] [place], [address], 09/06/2017 13:11:52 09/06/19 18 09/06/2017 CMP, serum or plasm a ALT (SGPT) 17 IU/L 0-32 Not Available [facility] ([facility]) [address] [place], [address], 09/06/2017 13:11:52 09/06/19 18 09/06/2017 lipid panel , serum cholesterol, total 251 mg/dL 100-19 9 above high normal Not Available [facility] ([facility]) [address] [facility] [place], [address], 09/06/2017 13:11:53 09/06/19 18 09/06/2017 lipid panel , serum triglyceride s 334 mg/dL 0-149 above high normal Not Available [facility] ([facility]) [address] [place], [address], 09/06/2017 13:11:53 09/06/19 18 09/06/2017 lipid panel , serum HDL cholesterol 27 mg/dL >39 below low normal Not Available [facility] ([facility]) [address] [place], [address], 09/06/2017 13:11:53 09/06/19 18 09/06/2017 lipid panel , serum VLDL cholesterol amrian 67 mg/dL 5-40 above high normal Not Available [facility] ([facility]) [address] [place], [address], 09/06/2017 13:11:53 09/06/19 18 09/06/2017 lipid panel , serum LDL cholesterol calc 157 mg/dL 0-99 above high normal Not Available [facility] ([facility]) [address] [place], [address], 09/06/2017 13:11:53 09/06/19 18 09/06/2017 lipid panel , serum comment: [employer]ERTY [employer] OFFICER Not Available [facility] ([facility]) [address] [place], [address], 09/06/2017 13:11:53 09/06/19 18 09/06/2017 lipid panel , serum LDL/HDL ratio 5.8 ratio 0.0-3. 2 above high normal LDL/H DL Ratio Men Women 1/2 Avg.R isk 1.0 1.5 Avg.R isk 3.6 3.2 2X Avg.R isk 6.2 5.0 3X Avg.R isk 8.0 6.1 Not Available [facility] ([facility]) [address] [place], [address], 09/06/2017 13:11:53 09/06/19 18 09/06/2017 HbA1c (hemo globi n A1c), blood hemoglobin A1C 7.3 % 4.8-5. 6 above high normal Pre-d iabet es: 5.7 - 6.4 Diabe dick: >6.4 Glyce escobar contr ol for adult s with diabe dick: <7.0 Not Available [facility] ([facility]) [address] [facility], [place], [address], 09/06/2017 13:11:53 09/06/19 18 09/06/2017 micro album in, urine albumin, urine 17.0 ug/mL not estab. Not Available [facility] ([facility]) [address] [facility], [place], [address], 09/06/2017 13:11:54 09/06/19 18 09/06/2017 diabe dick patie nt educa tion pdf image . Not Available [facility] ([facility]) [address] [facility], [place], [address], 09/06/2017 13:11:54 02/13/20 18 02/16/2018 cultu re, urine urine culture,comp rehensive Final report abnormal Not Available [facility] ([facility]) [address] [facility], [place], [address], 02/16/2018 15:15:41 02/13/20 18 02/16/2018 cultu re, [...] Imipe nem, Merop enem Not Available [facility] ([facility]) [address] [facility], [place], [address], 02/16/2018 15:15:41 02/13/20 18 02/16/2018 cultu re, [...] R Vanco mycin S Not Available [facility] ([facility]) [address] [facility], [place], [address], 02/16/2018 15:15:41 09/30/19 18 09/29/2017 LDCT, chest , for lung cance r scree brennon No observ ation record ed. [address] ([facility] Scheduling) [address] [place], [address], 10/17/2017 15:52:44 12/01/19 18 11/30/2017 CT, abdom en + pelvi s, w/wo contr ast No observ ation record ed. [address] (Imaging) [address] [place], [address], 12/13/2017 23:45:03 Result Notes None recorded. Problems Name Problem SNOMED Code Status Onset Date Resolution Date Notes Provider Name and Address Organization Details Recorded Time Type 2 diabetes mellitus 74507270 Active 2017 Giovany Mcguire MD Attn: Denysvika yun,[address] [facility], [place], [address], [place] - [facility] 8 12:04:04 Hyperlipide ritchie 35704070 Active 2017 Giovany Mcguire MD Attn: Adelaida court,[address] [facility], [place], [address], [place] - [facility] 8 12:05:02 History of malignant neoplasm of bladder 184158432 Active 2017 Giovany Mcguire MD Attn: Adelaida yun,[address] [facility], [place], [address], [place] - [facility] 8 12:05:38 Tobacco user 540799612 Active 2017 Giovany Mcguire MD Attn: Adelaida yun,[address] [facility], [place], [address], [place] - [facility] 8 12:06:02 Former heavy tobacco smoker 1823956047159 00 Active 2017 Giovany Mcguire MD Attn: Adelaida yun,[address] [facility], [place], [address], [place] - [facility] 8 16:04:30 Steatosis of liver 204065034 Active 2017 Giovany Mcguire MD Attn: Adelaida yun,[address] [facility], [place], [address], [place] - [facility] 8 15:53:44 Dysuria 79842446 Active 2017 Albert Alexander PA-C Attn: Adelaida yun,[address] [facility], [place], [address], [place] - [facility] 8 16:06:20 Acute urinary tract infection 879686368 Active 2017 Albert Alexander PA-C Attn: Adelaida yun,[address], [place], [address], [facility] 8 17:24:44 Problem Notes None recorded. Procedures Surgical History Date Name Laterality Status Provider Name and Address Organization Details Recorded Time Total hysterectomy completed Kalani Crowley [place] [facility] [place] 09/04/2017 11:17:28 Imaging Results Imaging Date Name Status LastModified by Organiz ation Details LastModified Time 09/29/2017 LDCT, chest, for lung cancer screening completed [address] ([facility] Sched[facility]) [address] [place], [address], 10/17/2017 15:52:44 11/30/2017 CT, abdomen + pelvis, w/wo contrast completed [address] (Imaging) [address] [place], [address], 12/13/2017 23:45:03 Procedure Notes None recorded. Medical [...] Updated DateTime 8 167.64 cm 24.1 kg/m2 28447.7 g 98 [degF] 76 /min 97 % 97 % 118 mm[Hg] 78 mm[Hg] Kalani Crowley MA [facility] 8 11:21:51 Date Recorded Body height Body mass index (BMI) Body weight Body temperature Oxygen saturation Oxygen saturation in Arterial blood by Pulse oximetry Heart rate Systolic blood pressure Diastolic blood pressure Provider Name and Address Organization Details Last Updated DateTime 8 167.64 cm 23.6 kg/m2 75955.4 9 g 98.1 [degF] 96 % 96 % 88 /min 110 mm[Hg] 74 mm[Hg] Kalani Crowley MA [facility] 8 15:32:54 Date Recorded Body height Body mass index (BMI) Body weight Oxygen saturation Oxygen saturation in Arterial blood by Pulse oximetry Heart rate Body temperature Systolic blood pressure Diastolic blood pressure Provider Name and Address Organization Details Last Updated DateTime 8 167.64 cm 24.2 kg/m2 97309.8 6 g 96 % 96 % 91 /min 97.9 [degF] 124 mm[Hg] 68 mm[Hg] Gris Rose MA [facility] 8 15:51:32 Social History Question Answer Notes LastModified by Organizat ion Details LastModified Time Tobacco Smoking Status Current Every Day Smoker Kalani Crowley MA [facility], [place] - [facility] 09/04/2017 11:17:00 What Was The [...] SNOMED-CT Code Diagnosis ICD10 Code Diagnosis Note [id number] [facility] [address] [place] [address] 09/04/2017 10:50:53 09/04/2017 12:32:16 Type 2 diabetes mellitus 05217250 E11.9 BS seem OK off meds x 3 mths. Restart with metformin alone. Pt to call with FBS in 2 weeks Hyperlipidemia 02619735 E78.5 History of malignant neoplasm of bladder 166524745 Z85.51 Tobacco user 935213749 Z 72.0 [id number] MD [facility] [address] [place] [address] 10/17/2017 14:52:16 10/17/2017 16:00:58 Type 2 diabetes mellitus 71455827 E11.9 BS seem OK off meds x 3 mths. Restart with metformin alone. Pt to call with FBS in 2 weeks Hyperlipidemia 89718571 E78.5 History of malignant neoplasm of bladder 197152148 Z85.51 [id number] NERIS Flaherty (Adult Med) [address] [place] [address] 02/12/2018 15:28:09 02/12/2018 16:16:50 Dysuria 95283494 R30.0 Tobacco user 382363097 Z 72.0 Type 2 natan betes mellitus 99175427 E11.9 Health Concerns Section Related Observation LastModified by Organization Detai ls LastModified Time None Recorded Concern Status LastModified by Organization Details LastModified Time None Recorded Advance Directives Directive None Recorded Payers Encounter Date Sequence Insurance Name Policy Number Policy Terry Covered Member ID Terry Member ID Guarantor Name 09/04/2017 2 [place] [facility] Dea Perez [id number] Dea Perez 10/17/2017 2 [place] [facility] Dea Perez [id number] Dea Perez 10/17/2017 1 [facility] PRIOR TO 11/19/2020 (MEDICAID REPLACEMENT - HMO) Dea Perez [id number] Dea Perez 02/12/2018 1 [facility] PRIOR TO 11/19/2020 (MEDICAID REPLACEMENT - HMO) Dea Perez [id number] Dea Perez Notes Date Note Type Note Provider Name and Address Organization Details Recorded Time 09/04/2017 text/html Changing physicians due to insurance. Giovany Mcguire MD Attn: Accounting,[address] [place], [address], [facility] 09/04/2017 12:31:09 10/17/2017 text/html has seen urologist. Scheduled for bladder examination(Small lesion seen on cystoscopy). FBs averaging 140 mg/dl Giovany Mcguire MD Attn: Accounting,[address] [place], [address], [facility] 10/17/2017 15:55:17 02/12/2018 text/html left cva tenderness , dysuria Albert Alexander PA-C Attn: Accounting,[address] [place], [address], [facility] 02/12/2018 22:23:05 OBGyn Episode No OBEpisode recorded.
--- OUTSIDE RECORDS SUMMARY | 2024-09-05 10:37 | XMS_ITS | Clinical Summary ---
Author Organization [facility]filo Wilson Address [address] [place] [address] Care Team Providers Care Manufacturing Clerk Name Role Phone Clara Barber MD Primary [...] STL ABSTRACTION Provider, Abstract 07/17/2024 Orders Only [facility] - [address] [address] Tommie Williamson MD Essential (hemorrhagic) thrombocythemia (CMS/HCC) (Primary Dx) 07/11/2024 Telephone [facility] - [address] [place] [address] Tommie Williamson MD Requesting Sooner Appointment (Patient No showed FU appt. Called to schedule FU -LM on ) 07/10/2024 External Device Data STL ABSTRACTION [...] Description 11/04/2024 2:30 PM CDT Office Visit [facility] - Benjamin [address] [facility] [address] [place] [address] Tommie Williamson MD [address] [facility] [address] [place] [address] Health Maintenance Due Date Last [...] 2023-2 5 season) 2024 05/08/2021, 08/19/2020, 07/23/2020 PNEUMOCOCCAL VACCINE 50+ YEARS Completed 05/06/[address] [place] [id number] MEDICAID [place] Care Teams Manufacturing Clerk Relationship Specialty Start Date End Date Clara Barber MD PCP - General Internal Medicine 11/01/23
--- OUTSIDE RECORDS SUMMARY | 2024-09-05 10:37 | XMS_ITS | Patient Health Record ---
Author Organization [facility] Address [address] [place] [address] Care Team Providers Care Food And Beverage Controller Name Role Phone Shubham Del Valle Unavailable [phone] REASON FOR REFERRAL No Information MEDICATIONS Medication SIG (Take, Route, Frequency, Duration) Notes Start Date End Date Status Sodium Bicarbonate 650 MG TAKE 2 TABLETS BY MOUTH TWICE A DAY DIRECTED for 90 Active PROBLEMS Problem Type ICD Code Onset Dates Problem Status W/U Status Risk SNOMED Code Notes Problem Anxiety disorder, unspecified (F41.9) Active confirmed Anxiety disorde r (226723320) Problem Edema, unspecified (R60.9) Active confirmed Edema (65827273) Problem Other proteinuria (R80.8) Active confirmed Proteinuria (30674057) Problem Essential hypertension (I10) Active confirmed Essential hypertension (97496902) Problem Chronic kidney disease, stage 3a (N18.31) Active confirmed Chronic kidney disease stage 3A (disorder) (765188273) Encounters Encounter Location Date Provider Diagnosis [facility] [address] [place] [address] 12/27/2023 Shubham Del Valle Chronic kidney disease, stage 3a N18.31 ; Essential hypertension I10 ; Other proteinuria R80.8 ; Edema, unspecified R60.9 and Anxiety disorder, unspecified F41.9 [facility] [address] [place] [address] 12/27/2023 Shubham Del Valle ASSESSMENTS Encounter Date Diagnosis Assessment Notes Treatment Notes Treatment Clinical Notes Section Notes 12/27/2023 Chronic kidney disease, stage 3a (ICD-10 - N18.31) 12/27/2023 Essential hypertension (ICD-10 - I10) 12/27/2023 Other proteinuria (ICD-10 - R80.8) 12/27/2023 Edema, unspecified (ICD-10 - R60.9) 12/27/2023 Anxiety disorder, unspecified (ICD-10 - F41.9) PLAN OF TREATMENT No Information
--- OUTSIDE RECORDS SUMMARY | 2024-09-05 10:37 | XMS_ITS | CONTINUITY OF CARE DOCUMENT ---
Author Name estevan barreto Address Unknown Organization [facility] Address [address] [facility] [address] [place] [address] Phone [phone] Care Team Providers Care Deputy Sheriff Custody Name Role Phone Lesia HENRY, Carlos Alberto Mcelroy Unavailable TERENCE MARTINEZ MD Unavailable TERENCE MARTINEZ MD Unavailable [phone] PROBLEMS Condition Status Date Provider Notes Chest [...] Carlos Alberto bazzi MD CVA active Carlos Alberto stapleton MD Atrial fib paroxysmal active Ascencion Graf MD Aortic valve sclerosis active Betina Graf MD Cardiac murmur active Carlos Alberto bazzi MD HTN essential active Carlos Alberto de la rosa MD ENCOUNTERS Date Type Provider Location Encounter Diag nosis - In-person encounter Office Visit Carlos Alberto Graf MD [place] [facility] HTN essential - In-person encounter Office Visit Carlos Alberto Graf MD [place] [facility] Family History of Hypertension:Aortic valve sclerosisCardiac murmur - In-person encounter Office Visit Carlos Alberto Graf MD [place] [facility] C V A / StrokeCardiac murmurCVAAtrial fib paroxysmal - In-person encounter Office Visit Eddie Del Valle MD [facility] Office - In-person encounter Office Visit Eddie Del Valle MD [place] [facility] HTN essentialBladder cancerCOPD VITAL SIGNS Date Observation Value Provider Body Mass Index (Ratio) 20.66 kg/m2 Cheryl Graf MD blood pressure, diastolic 68 mm[Hg] Faye nkLogic blood pressure, systolic 114 mm[Hg] Darlene kLogic blood pressure, cuff size regular Ja [facility] blood pressure, diastolic 68 mm[Hg] Ja [facility] blood pressure, systolic 114 mm[Hg] [facility] pulse rate 78 /min Jeet respiratory rate E&M 14 /min oxygen saturation, oximetry 97 % Jeet weight [...] er weight E&M 118 [lb_av] Magui Morales [facility] height E&M 66 [in_i] Magui Morales [facility] Body Mass Index (Ratio) 19.04 kg/m2 Maikel Santana blood pressure, diastolic 68 mm[Hg] Li nkLog blood pressure, systolic 107 mm[Hg] Darlene og blood pressure, cuff size regular [facility] blood pressure, diastolic 68 mm[Hg] [facility] blood pressure, systolic 107 mm[Hg] [facility] 79 /min [facility] oxygen saturation, oximetry 99 % [facility] respiratory rate E&M 16 /min Leta vásquez weight E&M 118 [lb_av] [facility] height E&M 66 [in_i] [facility] Body Mass Index (Ratio) 21.46 kg/m2 Rich Del Valle MD blood pressure, diastolic 60 mm[Hg] Li nkLogic blood pressure, systolic 96 mm[Hg] Darlene kLogic blood pressure, diastolic 60 mm[Hg] Calreen Pereira blood pressure, systolic 96 mm[Hg] Kizzy [...] Payer name Policy type / Coverage type Widen red constitution party ID [facility] COMPLETE CARE [id number] (PPO C-SNP) Commercial insurance company [id number] [employer] Medicaid 0 [id number] ADVANCE DIRECTIVES Name Date DISCUSSED - NO DECISION MADE TREATMENT PLAN Date Name Performer [id number],SReal i [id number],SReal i [id number],SReal i [id number],SReal i [id number],SReal i Cardiology:Discussio n of benefits for remote [...] tration Study Sleep Study Home DLCO - 84637 FRC - 39392 FVC - 09793 Carotid Duplex Bilat eral Complete Echo RPM (remote patient monitoring) Holter Monitor 48 hr Stress Exercise Card iolite Complete Echo HISTORY OF PROCEDURES Procedure Date Procedure Name Provider Procedure Notes S tatus EKG Carlos Alberto Graf MD compl eted EKG Carlos Alberto Graf MD compl eted EKG Eddie Del Valle MD completed
--- OUTSIDE RECORDS SUMMARY | 2024-09-05 10:37 | XMS_ITS ---
Author Organization [facility] Address [address] [facility] [address] [facility] [address] [place] [address] Care Team Providers Care Christian Science Healer Name Role Phone Del Valle Shubham Unavailable [phone] Encounters Encounter Location Date Provider Diagnosis [place] [facility] [address] [facility] [address] [place] [address] 07/19/2024 Shubham Del Valle PLAN OF TREATMENT Next Appt Details Provider Name:Shubham Del Valle , 09/25/2024 03:45:00 PM, [address] [facility] [address], [place], [address], Progress Notes * MARCY BARKEROB:[birth year] (69 yo F)Acc No.[id number]:07/19/2024 Progress Notes Patient: BINA BARKER Provider: MD GERARDO, Vince.Avery.Taylor.P, F.A.S.N. :1955 Age:68 Y Sex:Female Date:07/19/2024 Address:[address] [place] [address] Subjective: * Chief Complaints: * * Medical History: Objective: Assessment: Plan: * Treatment: * Billing Information: * Visit Code: * Procedure Codes: * Sign off status: Pending * Provider: MD GERARDO, Alberto.C.P, F.A.S.N. Date: 07/19/2024
--- OUTSIDE RECORDS SUMMARY | 2024-09-05 10:38 | XMS_ITS | Clinical Summary ---
Author Organization [facility] Address [address] [facility] [place] [address] Care Team Providers Care Inspector Advanced Composite Name Role Phone Vanna Dave ROSALIE-HYDRAULIC ROCKBREAKER OPERATOR Primary Care Provider [phone] Source Comments [facility],non-owned Affiliates and Associated Physician Practices is amultiple site organization consisting of ambulatory clinics and hospital sitesin [place], [place], [place] and [place]. This disclosure is being madepursuant to the Care Everywhere program and may not contain all information available regarding this patient. Last updated 18.[employer] Allergies No known active allergies Medications * Be aware that medications may not be up to date on this document. Alwaysverify current medications with the patient. metFORMIN (GLUCOPHAGE) 500 MG tablet Take 1 (one) tablet by mouth 2 times daily with morning and evening meal Active VICTOZA 18 MG/3ML penIndications :Type 2 Diabetes Mellitus Inject 1.2 mg subcutaneously once daily takes in PM HOLDING IF BS IS BELOW 100 Reasons: Type 2 Diabetes 1 Active omeprazole (PRILOSEC) 40 MG capsule Take 1 (one) capsule by mouth daily before breakfast takes 3 days per week 1 Active atorvastatin (LIPITOR) 40 MG tablet TAKE 1 TABLET BY MOUTH EVERYDAY AT BEDTIME 1 Active alendronate (Fosamax) 70 MG tablet alendronate 70 mg tablet Take 1 tablet every week by oral route. Active vitamin D, ergocalciferol , (Drisdol) 1.25 MG (08370 UT) capsule Take 1 (one) capsule by mouth every 7 days 2 Active empagliflozin (Jardiance) 25 MG tablet every 24 hours Activ e Blood Glucose Monitoring Suppl (True Metrix Meter) w/Device KIT as directed 3 Active True Metrix Blood Glucose Test test strip USE TO TEST ONCE DAILY 3 Active BD Pen Needle Micro U/F 32G X 6 MM MISC USE TO INJECT ONCE DAILY 3 Active Lancets (ONETOUCH DELICA PLUS 33G EXTRA FINE LANCET) USE TO TEST ONCE DAILY DIRECTED 3 Active docusate sodium (Colace) 100 MG capsule Take 1 (one) capsule by mouth 2 times daily as needed for Constipation (relief of difficult bowel movements) 3 Active polyethylene glycol 3350 (Miralax) 17 g packet Take 17 (seventeen) g by mouth once daily as needed for Constipation 3 Active acetaminophen (Tylenol) 500 MG tablet Take 1 (one) tablet by mouth every 6 hours as needed for Fever or Pain Maximum allowable Acetaminophen amount = 4 Grams (4000 mg) / 24 hours. 0 3 Active apixaban (Eliquis) 2.5 MG tablet Take 1 (one) tablet by mouth 2 times daily for 28 days 56 tablet 3 Active HYDROcodone-ac etaminophen ([place]) 5-325 MG tabletIndicati ons:Malignant neoplasm of posterior wall of urinary bladder (HCC) Take 1 (one) tablet by mouth every 6 hours as needed for Pain 12 tablet 3 Active Nutritional Supplement LIQD Take 1 bottles by mouth 3 times daily Low Calorie High Protein Supplement Examples: Ensure High Protein/Boost High Protein/Premier Protein High Calorie High Protein Supplement Examples: Ensure Enlive/Ensure Plus/Boost Plus/Equate Plus/Thrive Diabetic Supplement Examples: Ensure High Protein/Glucerna/B oost Glucose Control/Enterex Diabetic Clear Liquid Supplement Examples: Ensure Clear/Premier Protein Clear/Resource Boost Breeze/Prosource High Protein Gelatin Vegan or Milk Free Supplement Examples: Ensure Plant/Orgain 3 Active HYDROcodone-ac etaminophen ([place]) 5-325 MG tabletIndicati ons:Abscess,Ma lignant neoplasm of posterior wall of urinary bladder (HCC) Take 1 (one) tablet by mouth every 8 hours as needed 12 tablet 3 Active micafungin (Mycamine) 100 MG injection 3 Active piperacillin - tazobactam (Zosyn) injection 3 Active Heparin Sod, Pork, Lock Flush (Heparin Na, Pork, Lock Flsh PF) 10 UNIT/ML SOLN 3 Active Active Problems Problem Noted Date Diagnosed Date Abscess 02/04/2023 DUSTIN (acute kidney injury) 01/26/2023 Abdominal pain, generalized 12/25/2022 Left flank pain 12/25/2022 Acute pyelonephritis 12/25/2022 Urinary tract infection without hematuria, site unspecified 12/25/2022 Malignant neoplasm of posterior wall of urinary bladder Immunizations Immunization Administration Dates Next Due Covid Moderna primary [...] and heating? Not hard at all 02/05/2023 [facility] - Occupational Stress [...] place to sleep or slept in a retirement (including now)? 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 [facility] 09/23/2024 [id number] / / [id number] Stent Uret 7fr 26cm Sft Tria Implanted:Qty: 1 on 01/24/2023 by Silvano Rodríguez MD at [facility] Left: [facility] [employer] [facility] 04/03/2025 [id number] 0 / [id number] Insurance MEDICAID - OUT OF STATE UHC MANAGED MEDICARE ADV Advance Directives * Full Code (Latest Code [...] 9:35 AM 11/06/2019 4:21 PM Care Teams Inspector Advanced Composite Relationship Specialty Start Date End Date Vanna Dave APRN-KIM [address] [phone] PCP - General 11/20/20
--- OUTSIDE RECORDS SUMMARY | 2024-09-05 10:38 | XMS_ITS | Patient Health Record ---
Author Organization [facility] Address [address] [facility] [address] [facility] [address] [place] [address] Care Team Providers Care Slitter Processed Film Name Role Phone Eligio Shubham Unavailable [phone] REASON FOR REFERRAL No Information MEDICATIONS Medication [...] elsewhere classified (E21.1) Active confirmed Secondary hyperparathyroidism (15742949) Problem Vitamin D deficiency, unspecified (E55.9) Active confirmed Vitamin D defic iency (94047758) Problem Essential (primary) hypertension (I10) Active confirmed Essential hypertension (88657703) Problem Chronic kidney disease, stage 2 (mild) (N18.2) Active confirmed Chronic kidne y disease stage 2 (850987081) Problem Renal osteodystrophy (N25.0) Active confirmed Renal osteodyst rophy (85289903) Problem Edema, unspecified (R60.9) Active confirmed Edema (03210014) Problem Type 2 diabetes mellitus without complications (E11.9) Active confirmed Type II diabete s mellitus without complication (205239354) Problem Chronic kidney disease, stage 3 unspecified (N18.30) Active confirmed Chronic kidney disease stage 3 (disorder) (506835475) Encounters Encounter Location Date Provider Diagnosis [place] [facility] [address] [facility] [address] [place] [address] 09/20/2023 Shubham Del Valle Chronic kidney disea se, stage 3 unspecified N18.30 ; Essential (primary) hypertension I10 ; Edema, unspecified R60.9 ; Renal osteodystrophy N25.0 ; Secondary hyperparathyroidism, not elsewhere classified E21.1 and Vitamin D deficiency, unspecified E55.9 [place] [facility] [address] [address] 02/07/2024 Shubham Del Valle Chronic kidney disea se, stage 2 (mild) N18.2 ; Hyperkalemia E87.5 ; Essential (primary) hypertension I10 ; Edema, unspecified R60.9 ; Renal osteodystrophy N25.0 ; Secondary hyperparathyroidism, not elsewhere classified E21.1 and Vitamin D deficiency, unspecified E55.9 [place] [facility] [address] [address] 04/10/2024 Shubham Del Valle [facility] [place] [facility] [address] [place] [address] 05/08/2024 Shubham Del Valle Stage 3 chronic kidn ey disease N18.30 ; Type 2 diabetes mellitus without complications E11.9 ; Hypo-osmolality and hyponatremia E87.1 and Vitamin D deficiency, unspecified E55.9 [place] [facility] [address] [place] [address] 07/17/2024 Shubham Del Valle [place] [facility] [address] [address] 07/19/2024 Shubham Del Valle [place] [facility] [address] [place] [address] 09/20/2023 Shubham Del Valle ASSESSMENTS Encounter Date Diagnosis Assessment Notes Treatment Notes Treatment Clinical Notes Section Notes 09/20/2023 Chronic kidney disease, stage 3 unspecified (ICD-10 - N18.30) 05/08/2024 Stage 3 chronic kidney disease (ICD-10 - N18.30) 05/08/2024 Type 2 diabetes mellitus without complications (ICD-10 - E11.9) 02/07/2024 Chronic kidney disease, stage 2 (mild) (ICD-10 - N18.2) 02/07/2024 Hyperkalemia (ICD-10 - E87.5) 05/08/2024 Hypo-osmolality and hyponatremia (ICD-10 - E87.1) 09/20/2023 Essential (primary) hypertension (ICD-10 - I10) 09/20/2023 Edema, unspecified (ICD-10 - R60.9) 02/07/2024 Essential (primary) hypertension (ICD-10 - I10) 05/08/2024 Vitamin D deficiency, unspecified (ICD-10 - E55.9) 02/07/2024 Edema, unspecified (ICD-10 - R60.9) 09/20/2023 Renal osteodystrophy (ICD-10 - N25.0) 09/20/2023 Secondary hyperparathyroidism , not elsewhere classified (ICD-10 - E21.1) 02/07/2024 Renal osteodystrophy (ICD-10 - N25.0) 02/07/2024 Secondary hyperparathyroidism , not elsewhere classified (ICD-10 - E21.1) 09/20/2023 Vitamin D deficiency, unspecified (ICD-10 - E55.9) 02/07/2024 Vitamin D deficiency, unspecified (ICD-10 - E55.9) PLAN OF TREATMENT Next Appt Details Provider Name:Shubham Del Valle , 09/25/2024 03:45:00 PM, [address] [facility] [address], [place], [address],
--- OUTSIDE RECORDS SUMMARY | 2024-09-05 10:38 | XMS_ITS ---
Author Organization [facility] Address [address] [facility] [address] [facility] [address] [place] [address] Care Team Providers Care Nuclear Unit Operator Name Role Phone Sushil Del Vallejit Unavailable [phone] PROBLEMS Problem Type ICD Code Onset Dates Problem Status W/U Status Risk SNOMED Code Notes Problem Type 2 diabetes mellitus without complications (E11.9) Active confirmed Type II diabetes mellitus without complication (579848053) Encounters Encounter Location Date Provider Diagnosis [facility] [place] [facility] [address] [place] [address] 05/08/2024 Shubham Del Valle Stage 3 chronic [...] OF TREATMENT Next Appt Details Provider Name:Shubham Eligio , 09/25/2024 03:45:00 PM, [address] [facility], [facility] [address], [place], [address], Progress Notes * MARCY BARKEROB:[birth year] (69 yo F)Acc No.[id number]:05/08/2024 Progress Notes Patient: BINA BARKER Provider: MD GERARDO, F.A.C.P, F.A.S.N. :1955 Age:68 Y Sex:Female Date:05/08/2024 [facility] [place] [address] Subjective: * Chief Complaints: * * Medical History: Objective: Assessment: * Assessment: 1. Stage 3 chronic kidney disease - N18.30 (Primary) 2. Type 2 diabetes mellitus without complications - E11.9 3. Hypo-osmolality and hyponatremia - E87.1 4. Vitamin D deficiency, unspecified - E55.9 Plan: * Treatment: * Billing Information: * Visit Code: 70942 Office Visit, Est Pt., Level 4. * Procedure Codes: * Sign off status: Pending * Provider: MD GERARDO, F.A.C.P, F.A.S.N. Date: 05/08/2024
--- OUTSIDE RECORDS SUMMARY | 2024-09-05 10:39 | XMS_ITS ---
Author Organization [facility] Address [address] [facility] [address] [facility] [address] [place] [address] Care Team Providers Care Barrel Washer Machine Name Role Phone Del Valle Shubham Unavailable [phone] Encounters Encounter Location Date Provider Diagnosis [place] [facility] [address] [facility] [address] [place] [address] 07/17/2024 Shubham Del Valle PLAN OF TREATMENT Next Appt Details Provider Name:Shubham Del Valle , 09/25/2024 03:45:00 PM, [address] [facility], [address], [place], [address], Progress Notes * MARCY BARKEROB:[birth year] (69 yo F)Acc No.[id number]:07/17/2024 Progress Notes Patient: BINA BARKER Provider: MD GERARDO, Vince.Avery.C.P, F.A.S.N. :1955 Age:68 Y Sex:Female Date:07/17/2024 Address:[address] [place] [address] Subjective: * Chief Complaints: * * Medical History: Objective: Assessment: Plan: * Treatment: * Billing Information: * Visit Code: * Procedure Codes: * Sign off status: Pending * Provider: MD GERARDO, Alberto.C.P, F.A.S.N. Date: 07/17/2024
[2024-09-05 10:46] LABS: Basophils Absolute Auto 0.1 K/mm3 (0.0-0.1); Basophils Percent Auto 0.7 % (0.2-1.2); Eosinophils Absolute Auto 0.2 K/mm3 (0-0.3); Hematocrit 41.5 % (37.0-47.0); Hemoglobin 12.5 g/dL (12.0-15.0); Immature Granulocyte Absolute 0.05 K/mm3 (0.00-0.031); Immature Granulocyte Percent A 0.5 % (0-0.5); Lymphocytes Absolute Auto 4.01 K/mm3 (0.9-3.2); Mean Corpuscular HGB Conc 30.1 g/dl (32-36); Mean Corpuscular Hemoglobin 28.7 pg (26-34); Mean Corpuscular Volume 95.2 fl (80-100); Mean Platelet Volume 9.1 fl (7.4-10.4); Monocytes Absolute Auto 0.7 K/mm3 (0.1-0.6); Monocytes Percent Auto 6.3 % (2.6-8.5); Neutrophils Absolute Auto 5.3 K/mm3 (1.3-6.7); Neutrophils Percent Auto 51.5 % (45.5-73.1); Platelet Count Result 635 k/mm3 (150-375); Red Blood Count 4.36 M/mm3 (4.2-5.4); Red Cell Distribution Width 14.6 % (11.5-14.5); White Blood Count 10.3 K/mm3 (4.5-10.0)
[2024-09-05 10:55] LABS: Hemoglobin A1C 7.8 % (<5.7)
[2024-09-05 10:58] LABS: Add Urine Microscopic? YES; Appearance Urine Cloudy (Clear); Bacteria Urine 4+ /hpf; Bilirubin Urine Negative (Negative); Blood Urine Negative (Negative); Color Urine Yellow (Yellow); Glucose Urine UA Trace mg/dL (Negative); Ketones Urine Negative (Negative); Leukocyte Esterase Ur 3+ LEU/UL (Negative); Need Manual Microscopic Reviewed; Nitrate Urine Positive (Negative); Non Pathogenic Casts 0-2; Protein Urine Negative (Negative); RBC Urine 0-2 /hpf (0-2); Specific Grav Ur 1.011 (1.001-1.035); Squamous Epithelial Cell Urine Occasional /hpf (Few); Urobilinogen Urine 0.2 mg/dL (<2.0); WBC Urine 51-100 /hpf (0-3); pH Urine 6.5 (5.0-9.0)
[2024-09-05 10:58] LABS: Alanine Aminotransferase 18 U/L (6-35); Albumin Level 4.4 g/dL (3.5-5.1); Alkaline Phosphatase 86 U/L (38-126); Anion Gap 11 mmol/L (4-12); Aspartate Amino Transferase 19 U/L (14-36); Bilirubin Indirect 0.1 mg/dL (0-1.1); Bilirubin,Total 0.3 mg/dL (0.2-1.3); Blood Urea Nitrogen 22 mg/dL (7-17); Calcium 9.9 mg/dL (8.4-10.2); Carbon Dioxide 22 mmol/L (22-30); Chloride 107 mmol/L (98-107); Cholesterol 134 mg/dL (0-200); Estimated Glomerular Filt Rate 50; Glucose 125 mg/dL (65-110); HDL Direct 30 mg/dL; Potassium 5.3 mmol/L (3.4-5.0); Sodium 140 mmol/L (137-145); Triglycerides 174 mg/dL (<150); Uric Acid 3.7 mg/dL (2.5-7.5)
[2024-09-05 11:09] LABS: LDL Cholesterol Direct 68 mg/dL
[2024-09-05 11:10] LABS: Parathyroid Intact 25.8 pg/mL (14.5-75.2)
[2024-09-05 11:17] LABS: Creatinine Urine 53.8 mg/dL
[2024-09-05 11:22] LABS: Microalbumin Urine Random 21.5 mg/L (0-16.7)
[2024-09-05 11:28] LABS: Free T4 Free Thyroxine 0.86 ng/dL (0.78-2.19)
[2024-09-05 12:34] LABS: Folic Acid > 20.0 ng/mL (2.76->20)
== END 2024-09-05 09:50 | disposition home or self-care (01) ==
PROVIDERS: PCP Internal Medicine; Referring Provider Internal Medicine; Visit Provider Specialist
DX: E78.5 Hyperlipidemia, unspecified (principal); E03.9 Hypothyroidism, unspecified; E55.9 Vitamin D deficiency, unspecified; D75.839 Thrombocytosis, unspecified; E11.22 Type 2 diabetes mellitus with diabetic chronic kidney disease; N18.30 Chronic kidney disease, stage 3 unspecified; E21.3 Hyperparathyroidism, unspecified; R79.89 Other specified abnormal findings of blood chemistry; N39.0 Urinary tract infection, site not specified; R35.0 Frequency of micturition; E78.41 Elevated Lipoprotein(a); R94.6 Abnormal results of thyroid function studies; Z11.4 Encounter for screening for human immunodeficiency virus [HIV]
CPT/HCPCS: 36415; 80053; 80061; 81001; 82043; 82248; 82306; 82607; 82746; 83036; 83970; 84439; 84443; 84550; 85025

== ENCOUNTER 2024-10-23 09:21 | Outpatient (CLI) | payer MEDICARE, MEDICAID, SELFPAY ==
--- OUTSIDE RECORDS SUMMARY | 2024-10-23 09:29 | XMS_ITS ---
Author Organization [facility] Address [address] [address] [place] [address] Care Team Providers Care Canine Service Teacher Name Role Phone Eligio Shubham Unavailable [phone] Encounters Encounter Location Date Provider Diagnosis [place] [facility] 2043 [facility] 15 [place] [address] 12/27/2023 Shubham Del Valle Chronic kidney disease, [...] unspecified (ICD-10 - F41.9) Plan Of Treatment No Information Progress Notes * Pasha BARKEROB:[birth year] (69 yo M)Acc No.[id number]:12/27/2023 Progress Notes Patient: Dea DESHPANDE Provider: Angela PATRICIA MD, F.A.C.P, F.A.S.N. :1955 A ge:68 Y S ex:Male Date:12/27/2023 Address:[address] [place], [place] [id number] Subjective: * Chief Complaints: * * Medical History: Objective: * Vitals: Assessment: * Assessment: 1. C hronic kidney disease, stage 3a - N18.31 (Primary) 2 . E ssential hypertension - I10 3 . O ther proteinuria - R80.8 4 . E toby, unspecified - R60.9 5 . A nxiety disorder, unspecified - F41.9 Plan: * Treatment: * Billing Information: * Visit Code: 65453 Office Visit, Est Pt., Level 4. * Procedure Codes: * Electronic signature of Mary Del Valle MD on 10/23/2024 at 09:28 AM CDT Sign off status: Pending * Provider: Angela PATRICIA MD, F.A.C.P, F.A.S.N. Date: 0 12/27/2023 Generated for Printing/Faxing/eTransmitting on: 10/23/2024 09:28 AM CDT
--- OUTSIDE RECORDS SUMMARY | 2024-10-23 09:29 | XMS_ITS | Clinical Summary ---
Author Organization [facility] Shai Address [address] [place] [address] Care Team Providers Care Manager Diversity Name Role Phone Clara Barber MD Primary [...] Encounters Date Type Department Care Team Description 10/15/2024 External Device Data [facility] ABSTRACTION Provider, Abstract 10/09/2024 External Device Data [facility]STRACTION Provider, Abstract 10/08/2024 External Device Data [facility]STRA[facility] Provider, Abstract 09/20/2024 Abstract [facility] Oncology and Hematology [address] [place] [address] Tommie Williamson MD 09/20/2024 Abstract [facility] [address] [place] [phone] Tommie Williamson MD 08/07/2024 External Device Data [facility] ABSTRACTION Provider, [...] Date Smoking Tobacco: Every Day Cigarettes 1 50.9 Started: 11/14/1973 Smokeless Tobacco: Never Tobacco Cessation:Ready [...] 10:49 AM CDT Height 165.1 cm (5' 5) 11/15/2023 10:4 9 AM CDT Body Mass Index 21.6 11/15/2023 10:49 AM CDT Plan of Treatment Upcoming Encounters Date Type Department Care Team (Late st Contact Info) Description 11/04/2024 2:30 PM CDT Office Visit [facility] Oncology and Hematology - [address] [facility] [address] [place] [address] Tommie Williamson MD [address] [facility] [address] [place] [address] Health Maintenance Due Date Last [...] DIABETES HBA1C Q 6 MONTHS 07/13/2023 01/10/2023 COVID-19 Vaccine (5 - 2023-2 5 season) 2024 04/27/2022, 05/08/2021, 08/19/2020, Additional history exists [place] Preventative Visit/Annual Wellness Visit 05/22/2024 10/12/2023 PNEUMOCOCCAL VACCINE 50+ YEARS Completed 05/06/2022 INFLUENZA VACCINE Completed 02/15/2024, , 04/27/2022, Additional history exists Insurance [address] [address] [place] [phone] [place] Care Teams Manager Diversity Relationship Specialty Start Date End Date Clara Barber MD PCP - General Internal Medicine 11/01/23
--- OUTSIDE RECORDS SUMMARY | 2024-10-23 09:29 | XMS_ITS ---
Author Organization [facility] Address [address] [facility] [address] [facility] [address] [place] [address] Care Team Providers Care Faith Doctor Name Role Phone Eligio Shubham Unavailable [phone] Medications Medication SIG (Take, Route, Fr equency, Duration) Notes Start Date End Date Status Calcitriol 0.25 MCG TAKE 1 CAPSULE BY MO UTH EVERY DAY FOR 90 DAYS for 90 Active Jardiance 10 MG TAKE 1 TABLET BY REESE TH EVERY DAY for 90 Active Problems Problem Type SNOMED Code ICD Code Onset Dates Problem Status W/U Status Risk Notes Problem Tobacco use (834700770) Tobacco use (Z72.0) Active confirmed Problem Hypo-osmolality and or hyponatremia (393286365) Hypo-osmolality and hyponatremia (E87.1) Active confirmed Problem Hyperkalemia (56176234) Hyperkalemia (E87.5) Active confirmed Encounters Encounter Location Date Provider Diagnosis [place] [facility] 2043 [facility] 15 [place] [address] 09/25/2024 Shubham Del Valle Chronic kidney disea [...] Next Appt Details Provider Name:Shubham Eligio , 01/01/2025 02:45:00 PM, 2043 [facility] 15, [place], [place], [facility], Progress Notes * MARCY BARKEROB:[birth year] (69 yo F)Acc No.[id number]:09/25/2024 Progress Notes Patient: BINA DESHPANDE Provider: Angela PATRICIA MD, F.A.C.P, F.A.S.N. :1955 A ge:69 Y S ex:Female Date:09/25/2024 Address:[address] [place] [address] Subjective: * Chief Complaints: * * Medical [...] Treatment: * Billing Information: * Visit Code: 05721 Office Visit, Est Pt., Level 4. * Procedure Codes: * Electronic signature of Mary Del Valle MD on 10/23/2024 at 09:29 AM CDT Sign off status: Pending * Provider: Angela PATRICIA MD, F.A.C.P, F.A.S.N. Date: 0 09/25/2024 Generated for Printing/Faxing/eTransmitting on: 0 10/23/2024 09:29 AM CDT
--- OUTSIDE RECORDS SUMMARY | 2024-10-23 09:29 | XMS_ITS ---
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 Name Role Phone Eligio Shubham Unavailable [phone] Problems Problem Type SNOMED Code ICD Code Onset Dates Problem Status W/U Status Risk Notes Problem Chronic kidney disease stage 3A (disorder) (740499652) Chronic kidney disease, stage 3a (N18.31) Active confirmed Problem Edema (85697224) Edema, unspecified (R60.9) Active confirmed Problem Essential hypertension (I10) Active confirmed Problem Anxiety disorder (889768150) Anxiety disorder, unspecified (F41.9) Active confirmed Problem Proteinuria (19602170) Other proteinuria (R80.8) Active confirmed Encounters Encounter Location Date Provider Diagnosis [place] [facility] [address] [address] 08/11/2023 Shubham Del Valle Chronic kidney disease, stage 3a N18.31 ; Edema, unspecified R60.9 ; Essential hypertension I10 ; Anxiety disorder, unspecified F41.9 and Other proteinuria R80.8 Assessments Encounter Date Diagnosis (ICD Code) Assessment Notes Treatment Notes Treatment Clinical Notes Section Notes 08/11/2023 Chronic kidney disease, stage 3a (ICD-10 - N18.31) 08/11/2023 Edema, unspecified (ICD-10 - R60.9) 08/11/2023 Essential hypertension (ICD-10 - I10) 08/11/2023 Anxiety disorder, unspecified (ICD-10 - F41.9) 08/11/2023 Other proteinuria (ICD-10 - R80.8) Plan Of Treatment No Information Progress Notes * Pasha BARKEROB:[birth year] (69 yo M)Acc No.[id number]:08/11/2023 Progress Notes Patient: Dea DESHPANDE Provider: Angela PATRICIA MD, F.A.C.P, F.A.S.N. :1955 A ge:67 Y S ex:Male Date:08/11/2023 Address:[address] [place] [place] [address] Subjective: * Chief Complaints: * * Medical History: Objective: * Vitals: Assessment: * Assessment: 1. C hronic kidney disease, stage 3a - N18.31 2 . E toby, unspecified - R60.9 3 . E ssential hypertension - I10 4 . A nxiety disorder, unspecified - F41.9 5 . O ther proteinuria - R80.8 Plan: * Treatment: * Billing Information: * Visit Code: 24567 Office Visit, New Pt., Level 5. * Procedure Codes: * Electronic signature of Mary Del Valle MD on 10/23/2024 at 09:28 AM CDT Sign off status: Pending * Provider: Angela PATRICIA MD, Claire, F.A.S.N. Date: 08/11/2023 Generated for Printing/Faxing/eTransmitting on: 0 10/23/2024 09:28 AM CDT
--- OUTSIDE RECORDS SUMMARY | 2024-10-23 09:29 | XMS_ITS | Encounter Summary ---
Author Organization [facility] , [facility] Address [address] [facility] [place] [address] Phone Care Team Providers Care Enrollment Eligibility Representative Name Role Phone Vanna Dave Primary Care Provider Unava ilable Reason for Visit * Reason Comments Med Refill Encounter Details Date Type Department Care Team (Late st Contact Info) Description 08/30/2023 Refill [place] [facility], [facility] 2043 [facility] 15 [place] [address] João De Leon, [address] [facility] 1 [place] [address] Social History Tobacco Use Types [...] on filedocumented in this encounter Care Teams Enrollment Eligibility Representative Relationship Specialty Start Date End Date Vanna Dave FNP-C PCP - General Nurse Practitioner 02/07/22 documented as of this encounter
--- OUTSIDE RECORDS SUMMARY | 2024-10-23 09:29 | XMS_ITS | Data Portability ---
Author Organization [place] [facility], Main Office Address [address] [place] [address] Care Team Providers Care Human Resources Office Manager Name Role Phone CLARA BARBER Primary Care Provider [phone] CHRISTINE BARRIOS Billet Shearer GABY STOUT Research And Development Researcher [phone] Assessment Encounter Date Assessment Date Assessment LastModified by Organization Details LastModified Time 10/12/2023 10/12/2023 07/05/2023: A1C 5.8 B12 218 [...] 225 08/28/2023: Hepatitis panel/GGT 17 FT4 0.62 Not available 02/15/2024 15:18:22 06/13/2024 06/13/2024 07/05/2023: A1C 5.8 B12 218 FT4 0.75L K 5.2 TG 161 Urine micro alb 34.4 PLT 548 07/31/2023: HGB 11.9, PLT 714 K 5.2, ALP 136 B12 225 08/28/2023: Hepatitis panel/GGT 17 FT4 0.62 : A1C 7.4 Urine micro alb 28.6 Gluc 125, GFR 47 TG 199 WBC 11.3, PLT 450 05/01/2024: Dr Eligio FORD Gluc 147 A1C 8.4 PLT 511 Addendum: 06/13/2023: Gluc 132 Cr 1.08, GFR 56 A1C 8.5 PLT 411 Not available 06/13/2024 18:28:22 09/12/2024 09/12/2024 07/05/2023: A1C 5.8 B12 218 FT4 0.75L K 5.2 TG 161 Urine micro alb 34.4 PLT 548 07/31/2023: HGB 11.9, PLT 714 K 5.2, ALP 136 B12 225 08/28/2023: Hepatitis panel/GGT 17 FT4 0.62 : A1C 7.4 Urine micro alb 28.6 Gluc 125, GFR 47 TG 199 WBC 11.3, PLT 450 05/01/2024: Dr Eligio FORD Gluc 147 A1C 8.4 PLT 511 Addendum: 06/13/2023: Gluc 132 Cr 1.08, GFR 56 A1C 8.5 PLT 411 09/05/2024: Dr Eligio FORD A1C 7.8 K 5.3H, BUN 22, Cr 1.08H, GFR 50 TG 174 WBC 10.3,PLT 635 Not available 09/11/2024 18:42:58 10/17/2024 10/17/2024 Assessment: Nicotine smoke: 1.5 ppd 1976-present (quit 2 years in between) = 70.5 pack years 4 mm LLL nodule AAT PiMZ (+) Quantiferon TB Gold Plan: The following were reviewed and explained to the patient: Lab data 07/31/[address] 09/28/[address] 06/14/23 4 mm LLL nodule Chest CT 08/17/24 4 mm LLL nodule, RML GGO, bi-apical scarring Patient will be referred to Dr. Estevan Holt @ [address] [place] [address], [address], [place] [address], [place] , for Infectious Disease consultation regarding (+) Quantiferon TB Gold. Krwnd-6-lxuodwtfne n deficiency (AAT) information were discussed: What is alpha-1 antitrypsin deficiency? How common is alpha-1 antitrypsin deficiency? What genes are related to alpha-1 antitrypsin deficiency? How do people inherit alpha-1 antitrypsin deficiency? What other names do people use for alpha-1 antitrypsin deficiency? Who should get replacement enzymes? AAT deficiency educational video is shown. If agreeable, the patient will receive 60 mg/kg weekly IV infusions of alpha-1 antitrypsin protein concentrates as an augmentation therapy when both serum alpha-1 antitrypsin concentrations are below protective levels and FEV1 is less than 80% of the predicted value. Patient will encourage her 2 sisters and 3 daughters to be tested for AAT deficiency. Nicotine cessation counseling provided. [place] for quitting nicotine include getting ready, getting [...] in Quit For Life program Registering at www.quitline.QRGL Making a call to 3-545-RRWP-NOW ( ). A strong, clear, personalized message [...] failure or relapse. Patient can enroll in [facility]'s smoking cessation class through Ruby Gallegos RN at . Enrollment is free and classes are held every second Monday of the month from 1:30 pm to [...] at 3 months, PET/CT, or tissue sampling Cough/Dyspnea workup will be done as follows: Complete pulmonary function testing (PFT) Adherence to [...] for further management. Follow-up: 1 week after PFT, chest CT and Dr.Martin Holt consult [email or web address] Not available 10/17/2024 12:20:44 Plan of Treatment Reminders Order Date Submit Date Provider Last Modified By Organization Details Last Modified Time Details Appointments Any 15 2024 01:00P Patrick bishop MD Not available Not available Not available Lab CBC w/ auto diff [address] (Lab), [address] [place], [address], 09/12/2024 12:14:01 lipid panel, serum [address] (Lab), [address] [place], [address], 09/12/2024 12:14:00 CBC w/ auto diff [address] (Lab), [address] [place], [address], 09/12/2024 12:14:00 CMP, serum or plasma [address] (Lab), [address] [place], [address], 09/12/2024 12:14:00 TSH, serum or plasma [address] (Lab), [address] [place], [address], 09/12/2024 12:14:02 vitamin D, 25-hydrox y, total, serum [address] (Lab), [address] [place], [address], 09/12/2024 12:14:01 glycohemo globin, total, blood [address] (Lab), [address] [place], [address], 09/12/2024 12:13:59 microalbu min, urine [address] (Lab), [address] [place], [address], 09/12/2024 12:13:59 TSH, serum or plasma [address] (Lab), [address] [place], [address], 09/12/2024 12:14:01 vitamin B12 + folate, serum or blood [address] (Lab), [address] [place], [address], 09/12/2024 12:14:01 CBC w/ auto diff [address] (Lab), [address] [place], [address], 06/13/2024 16:26:53 lipid panel, serum 2024 025 [facility] (Lab), [address] [place], [address], 09/06/2024 15:02:08 CBC w/ auto diff [address] (Lab), [address] [place], [address], 06/13/2024 16:26:52 CMP, serum or plasma 2024 025 [facility] (Lab), [address] [place], [address], 09/05/2024 13:48:48 TSH, serum or plasma [address] (Lab), [address] [place], [address], 06/13/2024 16:26:54 vitamin D, 25-hydrox y, total, serum [address] (Lab), [address] [place], [address], 06/13/2024 16:26:53 glycohemo globin, total, blood [address] (Lab), [address] [place], [address], 06/13/2024 16:26:50 microalbu min, urine 2024 025 [facility] (Lab), [address] [place], [address], 09/06/2024 15:02:08 T4, free, serum [address] (Lab), [address] [place], [address], 06/13/2024 16:26:54 TSH, serum or plasma [address] (Lab), [address] [place], [address], 06/13/2024 16:26:54 vitamin B12 + folate, serum or blood [address] (Lab), [address] [place], [address], 06/13/2024 16:26:53 CBC w/ auto diff 2023 024 [facility] (Lab), [address] [place], [address], 02/19/2024 11:36:51 lipid panel, serum 2023 024 [facility] (Lab), [address] [place], [address], 02/19/2024 12:03:05 CBC w/ auto diff [address] (Lab), [address] [place], [address], 08/14/2024 08:48:30 CMP, serum or plasma 2023 024 [facility] (Lab), [address] [place], [address], 02/19/2024 12:03:10 TSH, serum or plasma [address] (Lab), [address] [place], [address], 08/14/2024 08:48:30 vitamin D, 25-hydrox y, total, serum [address] (Lab), [address] [place], [address], 08/14/2024 08:48:30 glycohemo globin, total, blood 2023 024 [facility] (Lab), [address] [place], [address], 02/19/2024 15:16:55 microalbu min, urine 2023 024 [facility] (Lab), [address] [place], [address], 02/19/2024 12:25:51 T4, free, serum 2023 024 [facility] (Lab), [address] [place], [address], 02/19/2024 12:21:33 TSH, serum or plasma 2023 024 [facility] (Lab), [address] [place], [address], 02/19/2024 12:33:09 vitamin B12 + folate, serum or blood [address] (Lab), [address] [place], [address], 08/14/2024 08:48:30 CBC w/ auto diff 2023 024 [facility] (Lab), [address] [place], [address], 10/13/2023 11:48:46 potassium , serum or plasma [address] (Lab), [address] [place], [address], 04/16/2024 08:46:59 lipid panel, serum 2023 024 [facility] (Lab), [address] [place], [address], 10/13/2023 11:01:56 CBC w/ auto diff [address] (Lab), [address] [place], [address], 04/16/2024 08:46:59 CMP, serum or plasma 2023 024 [facility] (Lab), [address] [place], [address], 10/13/2023 11:02:22 TSH, serum or plasma [address] (Lab), [address] [place], [address], 04/16/2024 08:46:59 vitamin D, 25-hydrox y, total, serum [address] (Lab), [address] [place], [address], 04/16/2024 08:46:59 glycohemo globin, total, blood 2023 024 [facility] (Lab), [address] [place], [address], 10/13/2023 11:59:58 microalbu min, urine 2023 024 [facility] (Lab), [address] [place], [address], 10/13/2023 11:26:11 T4, free, serum 2023 024 [facility] (Lab), [address] [place], [address], 10/13/2023 11:17:29 TSH, serum or plasma 2023 024 [facility] (Lab), [address] [place], [address], 10/13/2023 11:44:05 vitamin B12 + folate, serum or blood [address] (Lab), [address] [place], [address], 04/16/2024 08:46:59 Referral infectiou s disease specialis t referral - Please call patient to schedule. Note from provider: (+) Quantifer on TB Gold 2024 025 JOHANA Holt MD, [address], [place], [address], 10/22/2024 14:40:33 hematolog ist referral - Please call patient to schedule an appointme nt. Thank you. 2024 025 JOHANA Williamson MD, [address], [place], [address], 09/13/2024 11:33:06 gynecolog ist referral - Please call patient to schedule an appointme nt. Thank you. 2024 025 JOHANA Olivarez, [address], [place], [address], Ph [phone] 09/13/2024 11:46:51 nephrolog ist referral - Please call patient to schedule an appointme nt. Thank you. 2024 025 JOHANA Del Valle MD (Nephrology, [address], [address], [place], [address], 09/13/2024 11:24:41 pulmonolo gist referral - Please call patient to schedule an appointme nt. Thank you. 2024 025 gela Barrios MD, [address] [place], [address], 09/13/2024 11:11:25 cardiolog ist referral - Please call patient to schedule an appointme nt. Thank you. 2024 025 [place], [address], [address], [place], [address], 09/13/2024 12:09:41 podiatris t referral - Please call patient to schedule an appointme nt. Thank you. 2024 025 CHITO CALVERTM, [address] [facility], [facility], [place], [address], 09/16/2024 08:46:44 hematolog ist referral - Please call patient to schedule an appointme nt. Thank you. 2024 025 [email or web address] Tommie Williamson MD, [address], [place], [address], 08/07/2024 08:46:15 gynecolog ist referral - Please call patient to schedule an appointme nt. Thank you. 2024 025 CHITO Olivarez, [address], [place], [address], Ph [phone] 10/21/2024 04:11:12 nephrolog ist referral - Please call patient to schedule an appointme nt. Thank you. 2024 025 CHITO Del Valle MD (Nephrology, [address], [address], [place], [address], 10/21/2024 04:11:12 pulmonolo gist referral - Please call patient to schedule an appointme nt. Thank you. 2024 025 [email or web address] Christine Barrios MD, [address], [place], [address], 08/20/2024 08:40:58 cardiolog ist referral - Please call patient to schedule an appointme nt. Thank you. 2024 025 [email or web address] Carlos Alberto Graf MD, [address], [address], [place], [address], 08/20/2024 08:40:47 podiatris t referral - Please call patient to schedule an appointme nt. Thank you. 2024 025 CHITO Dupont DPM, [address], [address], [place], [address], 10/21/2024 04:11:12 gynecolog ist referral - Please call patient to schedule. 2023 024 [email or web address] Radha Olivarez, [address], [place], [address], Ph [phone] 09/17/2024 12:39:41 nephrolog ist referral 2023 024 [email or web address] Shubham Del Valle MD (Nephrology, [address], [address], [place], [address], 02/19/2024 16:05:34 pulmonolo gist referral 2023 024 Christine Barrios MD, [address] [facility], [place], [address], 02/19/2024 16:05:34 cardiolog ist referral 2023 024 [email or web address] Carlos Alberto Graf MD, [address] [facility], [address], [place], [address], 02/19/2024 16:05:33 podiatris t referral - Please call patient to schedule. 2023 024 [email or web address] Bolivar Dupont DPM, [address], [address], [place], [address], 03/21/2024 08:09:19 ENT surgery referral 2023 024 [email or web address] Gaby Stout MD, [address], [place], [address], 05/07/2024 15:58:00 gynecolog ist referral 2023 024 [email or web address] Radha Olivarez, [address], [place], [address], Ph [phone] 04/16/2024 08:47:10 nephrolog ist referral 2023 024 [email or web address] João [place], [address], [address], [place], [address], 11/09/2023 12:53:39 pulmonolo gist referral 2023 024 [email or web address] Christine Barrios MD, [address] [facility], [place], [address], 11/09/2023 12:53:16 cardiolog ist referral 2023 024 [email or web address] Carlos Alberto Graf MD, [address] [facility], [address], [place], [address], 04/16/2024 08:47:11 podiatris t referral 2023 024 [email or web address] Bolivar Dupont DPM, [address] [facility], [address], [place], [address], 04/16/2024 08:47:12 Procedures colonosco py screening (PROC) - Please call patient to schedule an appointme nt. Thank you. 2024 025 gela Martinez MD, [address], [facility] [address], [place], [address], 09/13/2024 11:06:16 upper endoscopy procedure (EGD) (PROC) - Please call patient to schedule an appointme nt. Thank you. 2024 025 gela Martinez MD, [address], [facility] [address], [place], [address], 09/13/2024 11:03:26 colonosco py screening (PROC) - Please call patient to schedule an appointme nt. Thank you. 2024 025 gela Martinez MD, [address], [facility] [address], [place], [address], 08/20/2024 08:52:24 upper endoscopy procedure (EGD) (PROC) - Please call patient to schedule an appointme nt. Thank you. 2024 025 gela Martinez MD, [address], [place], [address], 08/20/2024 08:51:54 colonosco py screening (PROC) - Please call patient to schedule. 2023 024 [email or web address] Martinez MD, [address], [address], [place], [address], 09/17/2024 08:37:51 upper endoscopy procedure (EGD) (PROC) - Please call patient to schedule. 2023 024 [email or web address] Martinez MD, [address], [address], [place], [address], 09/17/2024 08:37:31 colonosco py screening (PROC) 2023 024 astrid Villalta MD, [address], [address], [place], [address], 04/16/2024 08:46:25 upper endoscopy procedure (EGD) (PROC) 2023 024 astrid Villalta MD, [address], [address], [place], [address], 04/16/2024 08:46:24 Surgeries None recorded. Imaging CT, chest, w/o contrast [address], [address], [place], [address], 10/22/2024 16:06:12 MAMMO, screening , digital, bilateral - Please call patient to schedule. [address] [facility], [address], [place], [address], 09/12/2024 12:31:25 LDCT, chest, for lung cancer screening [address] [facility], [address], [place], [address], 09/12/2024 12:30:52 DEXA, axial skeleton - Please call patient to schedule. [address] [facility], [address], [place], [address], 10/17/2024 12:09:50 MAMMO, screening , digital, bilateral - Please call patient to schedule. [address] [facility], [address], [place], [address], 09/19/2024 16:04:39 LDCT, chest, for lung cancer screening - Please call patient to schedule. 2024 025 [facility], [address], [address], [place], [address], 08/19/2024 07:46:17 DEXA, axial skeleton [email or web address] [place] [address], [address], [address], [place], [address], 07/23/2024 14:18:35 DEXA, axial skeleton [address] ([facility]), [address] [facility], [place], [address], 08/27/2024 16:12:49 Medication Orders lisinopri l 2.5 mg tablet 2024 025 [facility] #[id number], [address], [place], [address], 06/13/2024 16:25:36 lisinopri l 2.5 mg tablet 2023 024 [id number], [address], [place], [address], 06/13/2024 15:43:05 Patient TargetsNo targets recorded. Patient Instructions Encounter Date Encounter Id Patient Instructions Last Modified By Organization Details Last Modified Time 10/12/2023 [id number] dementia rating scale-2* [email or web address] Not available 10/12/2023 16:17:33 depression screening* [email or web address] Not available 10/12/2023 16:17:16 alcohol misuse* [email or web address] Not available 10/12/2023 16:16:59 multi-dimensiona l health assessment questionnaire* Not available 10/12/2023 16:33:32 advance directiv es: care instructions Not available 10/12/2023 16:33:32 advance care planning: care instructions [email or web address] Not available 10/12/2023 16:33:32 [place] Advance Directives [email or web address] Not available 10/12/2023 16:33:32 diabetic eye exam* [email or web address] Not availa ble 04/16/2024 08:46:33 Personalized a [...] time to no more than 5hr/day Nutrition: Average Refer to attached handout Heart-Healthy Diet: After Your Visit Fall Risk (screened today): Low Refer to attached handout Preventing Falls: After your Visit Vaccines Pneumococcal: Recommended today Influenza: Your next one in the fall of this year Chronic Disease Risks Stroke: High Risk Active diagnosis, Continue current treatment plan Heart Attack: Intermediate Risk I have no recommendations Clogging of the Arteries: High risk Active diagnosis, Continue current treatment plan Diabetes: High Risk Active diagnosis, Continue current treatment plan Secondary Prevention/Interven tion (detects treatable diseases before they may cause symptoms, disability, or ) Breast Cancer Screening with mammogram: Your next mammogram: Ordered Recommended today Recommended today, but you have declined No screening necessary Your next mammogram: 1 year Cervical/Uterine/Ov moise Cancer Screening: Referral to medical screener Osteoporosis Screening: Ordered Date Screening Last Performed: 09/28/2021 Colon Cancer Screening: Colonoscopy Referral done Eye Disease Screening: Recommended today Dementia Risk: Intermediate I have no recommendations Depression Screening: Negative [email or web address] Not available 10/12/2023 16:20:15 06/13/2024 [id number] diabetic eye exam* [email or web address] Not avail able 06/13/2024 16:26:55 09/12/2024 [id number] diabetic eye exam* [email or web address] Not avail able 09/12/2024 12:14:02 10/17/2024 [id number] complete PFT w/ post bronchodilator spirometry* - Please call patient to schedule. RAMOS [id number] per payor portal, ref #[id number]. [email or web address] Not available 10/21/2024 16:05:21 Reason for Referral Litigator Referral for Gy necologic examination Referring Physician: Clara Barber Internal Medicine, Encounter Date: 10/12/2023 Decorating Instructor Referral for Co ronary arteriosclerosis Referring Physician: Petrona Brandt, Encounter Date: 10/12/2023 Billet Shearer Referral for C hronic obstructive pulmonary disease Referring Physician: Petrona Brandt, Encounter Date: 10/12/2023 Ethnic Origins Teacher Referral for Type 2 diabetes mellitus without complication Referring Physician: Petrona Brandt Medicine, Encounter Date: 10/12/2023 Supervisor Publications Referral for Pr oteinuria Referring Physician: Petrona Brandt, Encounter Date: 10/12/2023 ENT Surgery Referral for Thy roid nodule Referring Physician: Petrona Brandt, Encounter Date: 10/12/2023 Litigator Referral for Gy necologic examination Please call patient to schedule. Referring Physician: Petrona Brandt, Encounter Date: 02/15/2024 Decorating Instructor Referral for Co ronary arteriosclerosis Referring Physician: Clara Barber [facility], Encounter Date: 02/15/2024 Billet Shearer Referral for C hronic obstructive pulmonary disease Referring Physician: Clara Barber [facility] Medicine, Encounter Date: 02/15/2024 Ethnic Origins Teacher Referral for Type 2 diabetes mellitus without complication Please call patient to schedule. Referring Physician: Clara Barber [facility], Encounter Date: 02/15/2024 Supervisor Publications Referral for Pr oteinuria Referring Physician: Clara Barber [facility], Encounter Date: 02/15/2024 Litigator Referral for Gy necologic examination Please call patient to schedule an appointment. Thank you. Referring Physician: Clara Barber [facility], Encounter Date: 06/13/2024 Decorating Instructor Referral for Co ronary arteriosclerosis Please call patient to schedule an appointment. Thank you. Referring Physician: Clara Barber [facility], Encounter Date: 06/13/2024 Billet Shearer Referral for C hronic obstructive pulmonary disease Please call patient to schedule an appointment. Thank you. Referring Physician: Clara Barber [facility], Encounter Date: 06/13/2024 Ethnic Origins Teacher Referral for Type 2 diabetes mellitus without complication Please call patient to schedule an appointment. Thank you. Referring Physician: Petrona Brandt [facility], Encounter Date: 06/13/2024 Supervisor Publications Referral for Pr oteinuria Please call patient to schedule an appointment. Thank you. Referring Physician: Petrona Brandt, Encounter Date: 06/13/2024 Please call patient to sched ule an appointment. Thank you. Referring Physician: Petrona Brandt, Encounter Date: 06/13/2024 Litigator Referral for Gy necologic examination Please call patient to schedule an appointment. Thank you. Referring Physician: Clara Barber Internal Medicine, Encounter Date: 09/12/2024 Decorating Instructor Referral for Co ronary arteriosclerosis Please call patient to schedule an appointment. Thank you. Referring Physician: Clara Barber, Internal Medicine, Encounter Date: 09/12/2024 Billet Shearer Referral for C hronic obstructive pulmonary disease Please call patient to schedule an appointment. Thank you. Referring Physician: Clara Barber, Internal Medicine, Encounter Date: 09/12/2024 Ethnic Origins Teacher Referral for Type 2 diabetes mellitus without complication Please call patient to schedule an appointment. Thank you. Referring Physician: Clara Barbre, Internal Medicine, Encounter Date: 09/12/2024 Supervisor Publications Referral for Pr oteinuria Please call patient to schedule an appointment. Thank you. Referring Physician: Clara Barber, Internal Medicine, Encounter Date: 09/12/2024 Please call patient to sched ule an appointment. Thank you. Referring Physician: Clara Barber, Internal Medicine, Encounter Date: 09/12/2024 Infectious Disease Specialis t Referral for Exposure to Mycobacterium tuberculosis Please call patient to schedule.Note from provider: (+) Quantiferon TB Gold Referring Physician: Christine Barrios, Pulmonary Disease, Encounter Date: 10/17/2024 Results Created Date Observation Date Name Description Value Unit Range Abnormal Flag Note LastModifiedBy Organization Detail LastModifiedTime 11/07/19 24 11/07/2023 COLOG UARD cologuard result Cancel led - Order d not applic able Not Available [facility] (Cologuard Orders Only) [address], [place], [address], 11/07/2023 12:05:14 10/13/19 24 10/13/2023 LIPID PANEL cholesterol 145 mg/dL 140-19 9 [facility]LEKS NSUS RECOM MENDA TION FOR GLORIA STERO L: ADULT CHILD LOW RISK: <200 <170 BORDE RLINE : <200- 239 ----- HIGH RISK: >240 >200 Not Available [facility] (Lab) [address] [place], [address], 10/13/2023 11:01:56 10/13/19 24 10/13/2023 LIPID PANEL triglyceride s 127 mg/dL 0-150 [facility] A[facility]KS NSUS REPOR T RECOM MENDA TION FOR TRIGL YCERI WES: ADULT CHILD LOW RISK: <150 ----- BODER LINE: 150-1 99 ----- HIGH RISK: >200 ----- Not Available [facility] (Lab) [address] [place], [address], 10/13/2023 11:01:56 10/13/19 24 10/13/2023 LIPID PANEL HDL cholesterol 39 mg/dL 40- low Not Available [facility] (Lab) [address] [place], [address], 10/13/2023 11:01:56 10/13/19 24 10/13/2023 LIPID PANEL [...] LDL RESUL T WILL NOT BE REPOR GEOVANNA. Not Available [facility] (Lab) [address] [place], [address], 10/13/2023 11:01:56 10/13/19 24 10/13/2023 COMPR EHENS YULIANA METAB OLIC PANEL sodium 140 mmol/ L 137-14 5 Not Available [facility] (Lab) [address] [place], [address], 10/13/2023 11:02:22 10/13/19 24 10/13/2023 COMPR EHENS YULIANA METAB OLIC PANEL potassium 5.1 mmol/ L 3.5-5. 1 Not Available [facility] (Lab) [address] [place], [address], 10/13/2023 11:02:22 10/13/19 24 10/13/2023 COMPR EHENS YULIANA METAB OLIC PANEL chloride 115 mmol/ L 98-107 high Not Available [facility] (Lab) [address] [place], [address], 10/13/2023 11:02:22 10/13/19 24 10/13/2023 COMPR EHENS YULIANA METAB OLIC PANEL carbon dioxide 19 mmol/ L 22-30 low Not Available [facility] (Lab) [address] [place], [address], 10/13/2023 11:02:22 10/13/19 24 10/13/2023 COMPR EHENS YULIANA METAB OLIC PANEL anion gap 11.1 mmol/ L 14-22 low Not Available [facility] (Lab) [address] [place], [address], 10/13/2023 11:02:22 10/13/19 24 10/13/2023 COMPR EHENS YULIANA METAB OLIC PANEL glucose 107 mg/dL 70-99 high Not Available [facility] (Lab) [address] [place], [address], 10/13/2023 11:02:22 10/13/19 24 10/13/2023 COMPR EHENS YULIANA METAB OLIC PANEL BUN 15 mg/dL 8-19 Not Available [facility] (Lab) [address] [place], [address], 10/13/2023 11:02:22 10/13/19 24 10/13/2023 COMPR EHENS YULIANA METAB OLIC PANEL creatinine 0.92 mg/dL 0.66-1 .25 Not Available [facility] (Lab) [address] [place], [address], 10/13/2023 11:02:22 10/13/19 24 10/13/2023 COMPR EHENS YULIANA METAB OLIC PANEL GFR >60 Refer ence Range : [place] ge GFR Healt hy Adult : >60 [...] calcu lator is avail able on the [facility] websi te: https :[email or web address] [email or web address] bertin/pr ofess ional s/kdo qi/gf r_cal culat or Not Available [facility] (Lab) [address] [place], [address], 10/13/2023 11:02:22 10/13/1910/13/2023 COMPR EHENS YULIANA METAB OLIC PANEL alkaline phosphatase 73 U/L 38-126 Not Available [facility] (Lab) [address] [place], [address], 10/13/2023 11:02:22 10/13/1910/13/2023 COMPR EHENS YULIANA METAB OLIC PANEL alanine aminotransfe rase 17 U/L 0-35 Not Available [facility] (Lab) [address] [place], [address], 10/13/2023 11:02:22 10/13/19 24 10/13/2023 COMPR EHENS YULIANA METAB OLIC PANEL aspartate aminotransfe rase 22 U/L 15-37 Not Available [facility] (Lab) [address] [place], [address], 10/13/2023 11:02:22 10/13/19 24 10/13/2023 COMPR EHENS YULIANA METAB OLIC PANEL bilirubin, total 0.40 mg/dL 0.20-1 .30 Not Available [facility] (Lab) [address] [place], [address], 10/13/2023 11:02:22 10/13/19 24 10/13/2023 COMPR EHENS YULIANA METAB OLIC PANEL calcium 9.7 mg/dL 8.4-10 .2 Not Available [facility] (Lab) [address] [place], [address], 10/13/2023 11:02:22 10/13/19 24 10/13/2023 COMPR EHENS YULIANA METAB OLIC PANEL total protein 6.9 g/dL 6.3-8. 2 Not Available [facility] (Lab) [address] [place], [address], 10/13/2023 11:02:22 10/13/19 24 10/13/2023 COMPR EHENS YULIANA METAB OLIC PANEL albumin 4.2 g/dL 3.0-4. 4 Not Available [facility] (Lab) [address] [place], [address], 10/13/2023 11:02:22 10/13/19 24 10/13/2023 COMPR EHENS YULIANA METAB OLIC PANEL globulin 2.7 g/dL 2.6-4. 2 Not Available [facility] (Lab) [address] [place], [address], 10/13/2023 11:02:22 10/13/19 24 10/13/2023 COMPR EHENS YULIANA METAB OLIC PANEL A/G ratio 1.6 ratio 1.0-2. 0 Not Available [facility] (Lab) [address] [place], [address], 10/13/2023 11:02:22 10/13/19 24 10/13/2023 T4 FREE free T4 0.80 NG/dL 0.78-2 .19 Not Available [facility] (Lab) [address] [place], [address], 10/13/2023 11:17:29 10/13/19 24 10/13/2023 MICRO ALBUM IN RANDO M URINE microalbumin , urine 45.6 mg/L 0.0-16 .6 high Not Available [facility] (Lab) [address] [place], [address], 10/13/2023 11:26:10 10/13/19 24 10/13/2023 TSH thyroid-stim ulating hormone 1.200 uIU/m L 0.465- 4.680 Not Available [facility] (Lab) [address] [place], [address], 10/13/2023 11:44:04 10/13/19 24 10/13/2023 CBC/C OMPLE TE BLD COUNT W/DIF F white blood cells 8.4 x10'3 /uL 4.2-10 .8 Not Available [facility] (Lab) [address] [place], [address], 10/13/2023 11:48:46 10/13/19 24 10/13/2023 CBC/C OMPLE TE BLD COUNT W/DIF F red blood cells 4.37 x10'6 /uL 3.80-5 .20 Not Available [facility] (Lab) [address] [place], [address], 10/13/2023 11:48:46 10/13/19 24 10/13/2023 CBC/C OMPLE TE BLD COUNT W/DIF F hemoglobin 13.3 g/dL 12.0-1 5.6 Not Available [facility] (Lab) [address] [place], [address], 10/13/2023 11:48:46 10/13/19 24 10/13/2023 CBC/C OMPLE TE BLD COUNT W/DIF F hematocrit 41.8 % 35.7-4 5.7 Not Available [facility] (Lab) [address] [place], [address], 10/13/2023 11:48:46 10/13/19 24 10/13/2023 CBC/C OMPLE TE BLD COUNT W/DIF F mean red cell volume 95.7 fL 82.0-9 9.0 Not Available [facility] (Lab) [address] [place], [address], 10/13/2023 11:48:46 10/13/19 24 10/13/2023 CBC/C OMPLE TE BLD COUNT W/DIF F mean red cell hemoglobin 30.4 pg 27.0-3 3.0 Not Available [facility] (Lab) [address] [place], [address], 10/13/2023 11:48:46 10/13/19 24 10/13/2023 CBC/C OMPLE TE BLD COUNT W/DIF F mean RBC HGB concentratio n 31.8 g/dL 31.0-3 6.0 Not Available [facility] (Lab) [address] [place], [address], 10/13/2023 11:48:46 10/13/19 24 10/13/2023 CBC/C OMPLE TE BLD COUNT W/DIF F red cell distribution width 15.1 % 11.8-1 5.5 Not Available [facility] (Lab) [address] [place], [address], 10/13/2023 11:48:46 10/13/19 24 10/13/2023 CBC/C OMPLE TE BLD COUNT W/DIF F platelets 424 x10'3 /uL 150-40 0 high Not Available [facility] (Lab) [address] [place], [address], 10/13/2023 11:48:46 10/13/19 24 10/13/2023 CBC/C OMPLE TE BLD COUNT W/DIF F mean platelet volume 9.7 fL 9.0-12 .4 Not Available [facility] (Lab) [address] [place], [address], 10/13/2023 11:48:46 10/13/19 24 10/13/2023 CBC/C OMPLE TE BLD COUNT W/DIF F neutrophils 39.5 % 39.0-7 2.0 Not Available [facility] (Lab) [address] [place], [address], 10/13/2023 11:48:46 10/13/19 24 10/13/2023 CBC/C OMPLE TE BLD COUNT W/DIF F lymphocytes 48.4 % 16.0-4 7.0 high Not Available [facility] (Lab) [address] [place], [address], 10/13/2023 11:48:46 10/13/19 24 10/13/2023 CBC/C OMPLE TE BLD COUNT W/DIF F monocytes 8.4 % 5.0-12 .0 Not Available [facility] (Lab) [address] [place], [address], 10/13/2023 11:48:46 05/24/10/13/2023 CBC/C OMPLE TE BLD COUNT W/DIF F eosinophils 2.9 % 1.0-7. 0 Not Available [facility] (Lab) [address] [place], [address], 10/13/2023 11:48:46 10/13/19 24 10/13/2023 CBC/C OMPLE TE BLD COUNT W/DIF F basophils 0.6 % 0.0-2. 0 Not Available [facility] (Lab) [address] [place], [address], 10/13/2023 11:48:46 10/13/1910/13/2023 CBC/C OMPLE TE BLD COUNT W/DIF F immature granulocytes 0.2 % 0.00-0 .50 Not Available [facility] (Lab) [address] [place], [address], 10/13/2023 11:48:46 10/13/19 24 10/13/2023 CBC/C OMPLE TE BLD COUNT W/DIF F neutrophils, absolute count 3.30 x10'3 /uL 1.5-8. 0 Not Available [facility] (Lab) [address] [place], [address], 10/13/2023 11:48:46 10/13/19 24 10/13/2023 CBC/C OMPLE TE BLD COUNT W/DIF F lymphocytes, absolute count 4.04 x10'3 /uL 1.07-3 .43 high Not Available [facility] (Lab) [address] [place], [address], 10/13/2023 11:48:46 10/13/1910/13/2023 CBC/C OMPLE TE BLD COUNT W/DIF F monocytes, absolute count 0.70 x10'3 /uL 0.29-0 .99 Not Available [facility] (Lab) [address] [place], [address], 10/13/2023 11:48:46 10/13/19 24 10/13/2023 CBC/C OMPLE TE BLD COUNT W/DIF F eosinophils, absolute count 0.24 x10'3 /uL 0.02-0 .53 Not Available [facility] (Lab) [address] [place], [address], 10/13/2023 11:48:46 10/13/19 24 10/13/2023 CBC/C OMPLE TE BLD COUNT W/DIF F basophils, absolute count 0.05 x10'3 /uL 0.01-0 .08 Not Available [facility] (Lab) [address] [place], [address], 10/13/2023 11:48:46 10/13/19 24 10/13/2023 CBC/C OMPLE TE BLD COUNT W/DIF F immature granulocytes ,absolute 0.02 x10'3 /uL 0.00-0 .05 Not Available [facility] (Lab) [address] [place], [address], 10/13/2023 11:48:46 10/13/19 24 10/13/2023 CBC/C OMPLE TE BLD COUNT W/DIF F nucleated red blood cells 0.0 % -0 Not Available [facility] (Lab) [address] [place], [address], 10/13/2023 11:48:46 10/13/19 24 10/13/2023 CBC/C OMPLE TE BLD COUNT W/DIF F NRBC# 0.00 x10'3 /uL Not Available [facility] (Lab) [address] [place], [address], 10/13/2023 11:48:46 10/13/19 24 10/13/2023 HEMOG LOBIN A1C HA1C 6.4 % 4.0-6. 0 high Diabe dick Scree brennon Crite kena: <5.7% Consi stent with absen ce of diabe dick 5.7-6 .4% Consi stent with incre ased risk for diabe dick (pred iabet es) >OR=6 .5% Consi stent with diabe dick REFER ENCE: Diabe dick Care 2015, 39(Jones ppl.1 ):s13 -s22 Not Available [facility] (Lab) [address] [place], [address], 10/13/2023 11:59:58 10/13/19 24 10/13/2023 VITAM IN D 25-HY DROXY vd25oh 65.2 NG/mL 30-100 Vitam in D Statu s: Defic ient: <20 ng/mL Insuf ficie nt: 20-29 ng/mL Suffi cient : 30-10 0 ng/mL Not Available [facility] (Lab) [address] [place], [address], 10/13/2023 13:22:31 10/13/19 24 10/13/2023 FOLAT E, SERUM /PLAS MA folate 8.91 NG/mL 2.76-2 0.0 Not Available [facility] (Lab) [address] [place], [address], 10/13/2023 13:44:45 10/13/19 24 10/13/2023 VITAM IN B12 (SCOOBY JOSE LUIS ) vb12 206 pg/mL 239-93 1 low Not Available [facility] (Lab) [address] [place], [address], 10/13/2023 13:44:49 02/19/20 24 02/19/2024 CBC/C OMPLE TE BLD COUNT W/DIF F white blood cells 11.3 x10'3 /uL 4.2-10 .8 high Not Available [facility] (Lab) [address] [place], [address], 02/19/2024 12:03:02 02/19/20 24 02/19/2024 CBC/C OMPLE TE BLD COUNT W/DIF F red blood cells 4.41 x10'6 /uL 3.80-5 .20 Not Available [facility] (Lab) [address] [place], [address], 02/19/2024 12:03:02 02/19/20 24 02/19/2024 CBC/C OMPLE TE BLD COUNT W/DIF F hemoglobin 13.8 g/dL 12.0-1 5.6 Not Available [facility] (Lab) [address] [place], [address], 02/19/2024 12:03:02 02/19/20 24 02/19/2024 CBC/C OMPLE TE BLD COUNT W/DIF F hematocrit 43.9 % 35.7-4 5.7 Not Available [facility] (Lab) [address] [place], [address], 02/19/2024 12:03:02 02/19/20 24 02/19/2024 CBC/C OMPLE TE BLD COUNT W/DIF F mean red cell volume 99.5 fL 82.0-9 9.0 high Not Available [facility] (Lab) [address] [place], [address], 02/19/2024 12:03:02 02/19/20 24 02/19/2024 CBC/C OMPLE TE BLD COUNT W/DIF F mean red cell hemoglobin 31.3 pg 27.0-3 3.0 Not Available [facility] (Lab) [address] [place], [address], 02/19/2024 12:03:02 02/19/20 24 02/19/2024 CBC/C OMPLE TE BLD COUNT W/DIF F mean RBC HGB concentratio n 31.4 g/dL 31.0-3 6.0 Not Available [facility] (Lab) [address] [place], [address], 02/19/2024 12:03:02 02/19/20 24 02/19/2024 CBC/C OMPLE TE BLD COUNT W/DIF F red cell distribution width 13.9 % 11.8-1 5.5 Not Available [facility] (Lab) [address] [place], [address], 02/19/2024 12:03:02 02/19/20 24 02/19/2024 CBC/C OMPLE TE BLD COUNT W/DIF F platelets 450 x10'3 /uL 150-40 0 high Not Available [facility] (Lab) [address] [place], [address], 02/19/2024 12:03:02 02/19/20 24 02/19/2024 CBC/C OMPLE TE BLD COUNT W/DIF F mean platelet volume 10.2 fL 9.0-12 .4 Not Available [facility] (Lab) [address] [place], [address], 02/19/2024 12:03:02 02/19/20 24 02/19/2024 CBC/C OMPLE TE BLD COUNT W/DIF F neutrophils 43 % 39.0-7 2.0 Not Available [facility] (Lab) [address] [place], [address], 02/19/2024 12:03:02 02/19/20 24 02/19/2024 CBC/C OMPLE TE BLD COUNT W/DIF F lymphocytes 52 % 16.0-4 7.0 high Not Available [facility] (Lab) [address] [place], [address], 02/19/2024 12:03:02 02/19/20 24 02/19/2024 CBC/C OMPLE TE BLD COUNT W/DIF F monocytes 3 % 5.0-12 .0 low Not Available [facility] (Lab) [address] [place], [address], 02/19/2024 12:03:02 02/19/20 24 02/19/2024 CBC/C OMPLE TE BLD COUNT W/DIF F eosinophils 2 % 1.0-7. 0 Not Available [facility] (Lab) [address] [place], [address], 02/19/2024 12:03:02 02/19/20 24 02/19/2024 CBC/C OMPLE TE BLD COUNT W/DIF F neutrophils, absolute count 4.99 x10'3 /uL 1.5-8. 0 Not Available [facility] (Lab) [address] [place], [address], 02/19/2024 12:03:02 02/19/2002/19/2024 LIPID PANEL cholesterol 136 mg/dL 140-19 9 low NIH ALEKS NSUS RECOM MENDA TION FOR GLORIA STERO L: ADULT CHILD LOW RISK: <200 <170 BORDE RLINE : <200- 239 ----- HIGH RISK: >240 >200 Not Available [facility] (Lab) [address] [place], [address], 02/19/2024 12:03:05 02/19/20 24 02/19/2024 LIPID PANEL triglyceride s 199 mg/dL 0-150 high NIH ALEKS NSUS REPOR T RECOM MENDA TION FOR TRIGL YCERI WES: ADULT CHILD LOW RISK: <150 ----- BODER LINE: 150-1 99 ----- HIGH RISK: >200 ----- Not Available [facility] (Lab) [address] [place], [address], 02/19/2024 12:03:05 02/19/20 24 02/19/2024 LIPID PANEL HDL cholesterol 33 mg/dL 40- low Not Available [facility] (Lab) [address] [place], [address], 02/19/2024 12:03:05 02/19/20 24 02/19/2024 LIPID PANEL [...] LDL RESUL T WILL NOT BE REPOR GEOVANNA. Not Available [facility] (Lab) [address] [place], [address], 02/19/2024 12:03:05 02/19/20 24 02/19/2024 COMPR EHENS YULIANA METAB OLIC PANEL sodium 138 mmol/ L 137-14 5 Not Available [facility] (Lab) [address] [place], [address], 02/19/2024 12:03:10 02/19/20 24 02/19/2024 COMPR EHENS YULIANA METAB OLIC PANEL potassium 4.9 mmol/ L 3.5-5. 1 Not Available [facility] (Lab) [address] [place], [address], 02/19/2024 12:03:10 02/19/20 24 02/19/2024 COMPR EHENS YULIANA METAB OLIC PANEL chloride 109 mmol/ L 98-107 high Not Available [facility] (Lab) [address] [place], [address], 02/19/2024 12:03:10 02/19/20 24 02/19/2024 COMPR EHENS YULIANA METAB OLIC PANEL carbon dioxide 23 mmol/ L 22-30 Not Available [facility] (Lab) [address] [place], [address], 02/19/2024 12:03:10 02/19/20 24 02/19/2024 COMPR EHENS YULIANA METAB OLIC PANEL anion gap 10.9 mmol/ L 14-22 low Not Available [facility] (Lab) [address] [place], [address], 02/19/2024 12:03:10 02/19/20 24 02/19/2024 COMPR EHENS YULIANA METAB OLIC PANEL glucose 125 mg/dL 70-99 high Not Available [facility] (Lab) [address] [place], [address], 02/19/2024 12:03:10 02/19/20 24 02/19/2024 COMPR EHENS YULIANA METAB OLIC PANEL BUN 19 mg/dL 8-19 Not Available [facility] (Lab) [address] [place], [address], 02/19/2024 12:03:10 02/19/20 24 02/19/2024 COMPR EHENS YULIANA METAB OLIC PANEL creatinine 1.15 mg/dL 0.66-1 .25 Not Available [facility] (Lab) [address] [place], [address], 02/19/2024 12:03:10 02/19/20 24 02/19/2024 COMPR EHENS YULIANA METAB OLIC PANEL GFR 47 Refer ence Range : [place] ge GFR Healt hy Adult : >60 [...] calcu lator is avail able on the [facility] websi te: https :[email or web address] [email or web address].mandie denton/pr ofess ional s/kdo qi/gf r_cal culat or Not Available [facility] (Lab) [address] [place], [address], 02/19/2024 12:03:10 02/19/20 24 02/19/2024 COMPR EHENS YULIANA METAB OLIC PANEL alkaline phosphatase 78 U/L 38-126 Not Available [facility] (Lab) [address] [place], [address], 02/19/2024 12:03:10 02/19/20 24 02/19/2024 COMPR EHENS YULIANA METAB OLIC PANEL alanine aminotransfe rase 22 U/L 0-35 Not Available [facility] (Lab) [address] [place], [address], 02/19/2024 12:03:10 02/19/20 24 02/19/2024 COMPR EHENS YULIANA METAB OLIC PANEL aspartate aminotransfe rase 24 U/L 15-37 Not Available [facility] (Lab) [address] [place], [address], 02/19/2024 12:03:10 02/19/20 24 02/19/2024 COMPR EHENS YULIANA METAB OLIC PANEL bilirubin, total 0.40 mg/dL 0.20-1 .30 Not Available [facility] (Lab) [address] [place], [address], 02/19/2024 12:03:10 02/19/20 24 02/19/2024 COMPR EHENS YULIANA METAB OLIC PANEL calcium 9.7 mg/dL 8.4-10 .2 Not Available [facility] (Lab) [address] [place], [address], 02/19/2024 12:03:10 02/19/20 24 02/19/2024 COMPR EHENS YULIANA METAB OLIC PANEL total protein 6.9 g/dL 6.3-8. 2 Not Available [facility] (Lab) [address] [place], [address], 02/19/2024 12:03:10 02/19/20 24 02/19/2024 COMPR EHENS YULIANA METAB OLIC PANEL albumin 4.1 g/dL 3.0-4. 4 Not Available [facility] (Lab) [address] [place], [address], 02/19/2024 12:03:10 02/19/20 24 02/19/2024 COMPR EHENS YULIANA METAB OLIC PANEL globulin 2.8 g/dL 2.6-4. 2 Not Available [facility] (Lab) [address] [place], [address], 02/19/2024 12:03:10 02/19/20 24 02/19/2024 COMPR EHENS YULIANA METAB OLIC PANEL A/G ratio 1.5 ratio 1.0-2. 0 Not Available [facility] (Lab) [address] [place], [address], 02/19/2024 12:03:10 02/19/20 24 02/19/2024 T4 FREE free T4 0.88 NG/dL 0.78-2 .19 Not Available [facility] (Lab) [address] [place], [address], 02/19/2024 12:21:33 02/19/2002/19/2024 MICRO ALBUM IN RANDO M URINE microalbumin , urine 28.6 mg/L 0.0-16 .6 high Not Available [facility] (Lab) [address] [place], [address], 02/19/2024 12:25:51 09/30/02/19/2024 TSH thyroid-stim ulating hormone 1.370 uIU/m L 0.465- 4.680 Not Available [facility] (Lab) [address] [place], [address], 02/19/2024 12:33:09 02/19/20 24 02/19/2024 VITAM IN B12 (SCOOBY JOSE LUIS ) vb12 527 pg/mL 239-93 1 Not Available [facility] (Lab) [address] [place], [address], 02/19/2024 13:33:52 02/19/20 24 02/19/2024 FOLAT E, SERUM /PLAS MA folate 11.8 NG/mL 2.76-2 0.0 Not Available [facility] (Lab) [address] [place], [address], 02/19/2024 13:33:57 02/19/20 24 02/19/2024 VITAM IN D 25-HY DROXY vd25oh 55.1 NG/mL 30-100 Vitam in D Statu s: Defic ient: <20 ng/mL Insuf ficie nt: 20-29 ng/mL Suffi cient : 30-10 0 ng/mL Not Available [facility] (Lab) [address] [place], [address], 02/19/2024 13:34:08 02/19/20 24 02/19/2024 HEMOG LOBIN A1C HA1C 7.4 % 4.0-6. 0 high Diabe dick Scree brennon Crite kena: <5.7% Consi stent with absen ce of diabe dick 5.7-6 .4% Consi stent with incre ased risk for diabe dick (pred iabet es) >OR=6 .5% Consi stent with diabe dick REFER ENCE: Diabe dick Care 2016, 39(Jones ppl.1 ):s13 -s22 Not Available [facility] (Lab) [address] [place], [address], 02/19/2024 15:16:55 09/29/19 24 09/29/2023 NM, myoca rdial perfu arslan scan No observ ation record ed. [facility] [address], [place], [address], 12/07/2023 12:34:17 12/20/19 24 12/20/2023 fine needl e aspir ation , ultra sound guide d, thyro id (PROC ) No observ ation record ed. [email or web address], [place], [address], 12/21/2023 09:56:14 08/20/19 25 08/17/2024 LDCT, chest , for lung cance r scree brennon No observ ation record ed. [place] [id number] [facility] [address], [place], [address], 08/19/2024 07:46:17 Result Notes None recorded. Problems Name Problem SNOMED Code Status Onset Date Resolution Date Notes Provider Name and Address Organization Details Recorded Time Vitamin D deficiency 47832978 Active 2022 Christine Barrios MD [address], [place], [address] , [employer] 18:33:51 Thrombocytosi s 3657885 Active 2022 Christine Barrios MD [address], [place], [address] , [employer] [facility] 5 18:34:20 Coronary arteriosclero sis 86504100 Active 2022 Christine Barrios MD [address], [place], [address] , [employer] 5 18:37:16 Essential hypertension 49607013 Active 2022 Christine Barrios MD [address], [place], [address] , [employer] [facility] 5 18:37:19 Malignant neoplasm of urinary bladder 943754503 Active 2022 Christine Barrios MD [address], [place], [address] , [place] [facility] 5 18:35:15 Thyroid nodule 860809173 Active 2022 Chrsitine Barrios MD [address], [place], [address] , [place] [facility] 5 18:33:59 Cerebrovascul ar accident 535808773 Active 2022 Christine Barrios MD [address], [place], [address] , [place] [facility] 5 16:10:01 Chronic obstructive pulmonary disease 77064986 Active 2023 Christine Barrios MD [address], [place], [address] , [place] [facility] 5 18:36:41 Proteinuria 08497372 Active 2023 Christine Barrios MD [address], [place], [address] , [place] [facility] 5 18:34:45 Solitary nodule of lung 257628601 Active 2023 Christine Barrios MD [address], [place], [address] , [place] [facility] 5 18:34:23 Cobalamin deficiency 177753511 Active 2023 Christine Barrios MD [address], [place], [address] , [place] [facility] 5 18:37:13 Chronic kidney disease 008457854 Active 2024 Christine Barrios MD [address], [place], [address] , [place] [facility] 5 18:36:35 Hyperlipidemi a 22972272 Active 2018 Not Available [facility] 3 06:53:10 Osteoporosis 14995283 Active 2021 Christine Barrios MD [address] [facility], [facility] [address], [place], [address] , [employer] 18:35:05 Diabetes mellitus 65577016 Active 2018 Not Available [facility] 06:53:10 Notes:Medical History: 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 Left vertebral artery stenosis Right thyroid nodule Eosinophils 220/uL IgE 28 IU/mL AAT PiMZ 116 mg% Nicotine use (+) Quantiferon TB Gold 4 mm LLL nodule Trace MR/TR Hypertension EF 55% Mixed hyperlipidemia T2DM with microalbuminuria CAD Hiatal hernia with CHASITY CKD Vit B12 deficiency Vit D deficiency Hip osteopenia Lumbar osteoporosis Low back pain Procedure History: T&A 1975 Tubal ligation 1980 EITAN-BSO 2016 Cystectomy for bladder ca 2022 Ostomy bag placement 2022 Bilateral ureteral stent placement and removal 2022 Thyroid nodule biopsy 2023 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 Procedures Surgical History Date Name Laterality Status Provider Name and Address Organization Details Recorded Time 10/12/19 Medicare Wellness CPT Code, subsequent completed Desmond Rojas LPN [employer] 10/12/2023 08:19:01 10/12/19 24 Advanced Care Planning completed Desmond Rojas LPN [employer] 10/12/2023 16:14:47 02/22/20 Transitional_Care _Management completed STACEY Berkowitz [address] [facility], [facility] [address], [place], [address], [employer] 02/21/2023 15:45:18 01/05/20 22 procedure on urinary bladder completed Not Available [facility] 07/20/2022 04:42:53 11/11/19 20 procedure on urinary bladder completed Not Available [facility] 07/20/2022 04:42:53 07/15/19 20 procedure on urinary bladder completed Not Available [facility] 07/20/2022 04:42:53 09/12/19 19 transurethral excision of neoplasm of urinary bladder completed Not Available [facility] 07/20/2022 04:42:53 01/17/20 18 transurethral excision of neoplasm of urinary bladder completed Not Available [facility] 07/20/2022 04:42:53 01/17/20 18 Cystoscopy and treatment completed Not Available [facility] 07/20/2022 04:42:53 10/26/19 18 Cystoscopy and treatment completed Not Available [facility] 07/20/2022 04:42:53 03/20/20 17 Tlh w/t/o 250 g or less completed Not Available [facility] 07/20/2022 04:42:53 03/20/20 17 robotic assisted surgery completed Not Available [facility] 07/20/2022 04:42:53 Tubal Ligation completed Not Available [facility] 07/20/2022 04:42:53 transurethral excision of neoplasm of urinary bladder completed Not Available [facility] 07/20/2022 04:42:53 excision of urinary bladder completed Marbella Reyes MA ID [employer] [facility] [facility] 02/21/2023 14:20:24 tonsillectomy completed MARIXA Faith [facility] 09/06/2023 12:51:39 Imaging Results None recorded. Procedure Notes None recorded. Medical Equipment None Reported. Allergies No known drug allergies Medications Name Sig Start Date Stop Date Status Note LastModified by Organization Details LastModified Time atorvastati n 40 mg tablet TAKE 1 TABLET BY MOUTH EVERYDAY AT BEDTIME active Not Available Not Available No t Available metformin 500 mg tablet TAKE 1 TABLET BY MOUTH TWICE A DAY active Not Available Not Available No t Available bupropion HCl SR 150 mg tablet,12 hr [...] MOUTH TWICE A DAY WITH A MEAL/FOOD 11/30 /2023 completed Not Available Not Available Not Available [...] TABLET BY MOUTH ONE TIME PER WEEK 2024 active Not Available Not Available Not Avai lable Accu-Chek Softclix Lancets 07/22 completed Not Available [...] mL every month by subcutane ous route. 09/12 completed Not Available Not Available Not Available nicotine 21 mg/24 hr daily transdermal patch [...] Not Available Not Available No t Available calcitriol 0.25 mcg capsule TAKE 1 CAPSULE [...] by inhalatio n route for 90 days. 04/22 /2021 completed Not Available Not Available Not Available Jardiance 10 mg tablet TAKE 1 TABLET BY MOUTH EVERY DAY active Not Available Not Available No t Available Jardiance 25 mg tablet TAKE 1 TABLET BY MOUTH EVERY DAY IN THE MORNING 10/11 completed Not Available Not Available Not Available True Metrix Glucose Test Strip USE TO TEST ONCE DAILY 10/10 completed Not Available Not Available Not Available True Metrix Glucose Meter USE DIRECTED. 07/22 [...] Updated DateTime 5 167.64 cm 22.4 kg/m2 79503.3 4 g 97.5 [degF] 84 /min 132 mm[Hg] 60 mm[Hg] 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 [place] - [place] [employer] 5 15:45:13 Date Recorded Body height Body mass index (BMI) Body weight Body temperature Heart rate Systolic blood pressure Diastolic blood pressure Provider Name and Address Organization Details Last Updated DateTime 5 167.64 cm 22 kg/m2 87897.5 6 g 97.6 [degF] 78 /min 108 mm[Hg] 62 mm[Hg] 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 [employer] 5 11:32:07 Date Recorded Body height Body mass index (BMI) Body weight Body temperature Heart rate Systolic blood pressure Diastolic blood pressure Provider Name and Address Organization Details Last Updated DateTime 4 167.64 cm 20.2 kg/m2 81530.0 5 g 97.4 [degF] 78 /min 122 mm[Hg] 60 mm[Hg] Patricia KEYANNA Adamson [employer] 4 15:23:39 Date Recorded Heart rate Heart rate Respiratory rate Provider Name and Address Organization Details Last Updated DateTime 10/17/2024 71 /min 71 /min 15 /min Christine Barrios MD [address] [place] [address], [phone], [employer] 10/17/2024 12:12:21 Date Recorded Body height Body mass index (BMI) Body weight Body temperature Oxygen saturation Oxygen saturation in Arterial blood by Pulse oximetry Systolic blood pressure Diastolic blood pressure Provider Name and Address Organization Details Last Updated DateTime 5 167.64 cm 21.5 kg/m2 28795.7 9 g 98.4 [degF] 96 % 96 % 106 mm[Hg] 64 mm[Hg] Josie Slaughter MA [employer] 5 11:49:11 Date Recorded Body height Body mass index (BMI) Body weight Body temperature Heart rate Respiratory rate Oxygen saturation Oxygen saturation in Arterial blood by Pulse oximetry Systolic blood pressure Diastolic blood pressure Provider Name and Address Organization Details Last Updated DateTime 4 167.64 cm 22.3 kg/m2 29703.7 5 g 97.8 [degF] 88 /min 16 /min 95 % 95 % 124 mm[Hg] 62 mm[Hg] Desmond Rojas LPN [employer] 4 15:22:31 Social History Question Answer Notes LastModified by Organization Details LastModified Time Tobacco Smoking Status Current Every Day Smoker Not Available [employer] 07/20/2022 04:33:42 Do You Have An Advance Directive? No Patient Given Informati on. [email or web address] Information not available 10/12/2023 Are You Blind Or Do You Have Difficulty Seeing? No MIGRATION.0301 [id number] Information not available 07/20/2022 What Is Your Level Of Caffeine Consumption? Occasional MIGRATION.0301 [id number] Information not available 07/20/2022 How Much Tobacco Do You Chew? None MIGRATION.0301 386502 Information not available 07/20/2022 In The 14 Days Before Symptom Onset, Have You Had Close Contact With A Laboratory-confi rmed COVID-19 While That Case Was Ill? No MIGRATION.0301 [id number] Information not available 07/20/2022 In The 14 Days Before Symptom Onset, Have You Had Close Contact With A Person Who Is Under Investigation For COVID-19 While That Person Was Ill? No MIGRATION.0301 [id number] Information not available 07/20/2022 Are You Deaf Or Do You Have Serious Difficulty Hearing? No MIGRATION.0301 735906 Information not available 07/20/2022 What Type Of Diet Are You Following? REGULAR MIGRATION.0301 539504 Information not available 07/20/2022 Which Illicit Or Recreational Drugs Have You Used? None MIGRATION.030 829244 Information not available 07/20/2022 What Is The Highest Grade Or Level Of School You Have Completed Or The Highest Degree You Have Received? [id number] [email or web address] Information not available 10/12/2023 Do You Have An Electrostatic Air Filter? No Information not available 07/31/2023 Have There Been Any Changes To Your Family Or Social Situation? No MIGRATION.0301 957447 Information not available 07/20/2022 What Is The Fluoride Status Of Your Home? Unknown Information not available 10/12/2023 Are There Any Guns Present In Your Home? No MIGRATION.0301 253221 Information not available 07/20/2022 Do You Have A Humidifier? No Information not available 07/31/2023 Do You Use Insect Repellent Routinely? No MIGRATION.0301 047404 Information not available 07/20/2022 Where Do You Live? [facility] MIGRATION.0301 672305 Information not available 07/20/2022 Presence Of Domestic Violence No [email or web address] Information not available 10/12/2023 Guns Present In The Home? No [email or web address] Information not available 10/12/2023 Are You Able To Care For Yourself? Yes [email or web address] Information not available 10/12/2023 Are You Blind Or Do Yo Have Difficulty Seeing? No [email or web address] Information not available 10/12/2023 Are You Deaf Or Do You Have Serious Difficulty Hearing? No [email or web address] Information not available 10/12/2023 General Stress Level? Low [email or web address] Information not available 10/12/2023 Live Alone Of With Others? With Others Lives With Daughter. [email or web address] Information not available 10/12/2023 Do You Have A Medical Power Of Billet Assembler? No MIGRATION.0301 [id number] Information not available 07/20/2022 Do You Have Moisture Problems In Your Home? No Information not available 07/31/2023 What Was The Date Of Your Most Recent Tobacco Screening? 10/17/2024 Information not available 10/17/2024 What Is Your Current Pack Years? [email or web address] MIGRATION.0301 817822 Information not available 07/20/2022 Do You Have Any Pets? Yes MIGRATION.0301 873586 Information not available 07/20/2022 What Is Your Relationship Status? MIGRATION.0301 753441 Information not available 07/20/2022 Do You Use Your Seat Belt Or Car Seat Routinely? Yes Information not available 07/31/2023 Do You Have Smoke And Carbon Monoxide Detectors In Your Home? Yes MIGRATION.0301 320434 Information not available 07/20/2022 At What Age Did You Start Smoking Tobacco? 14 MIGRATION.0301 753585 Information not available 07/20/2022 Are You Passively Exposed To Smoke? Yes [email or web address] Information not available 10/12/2023 Are There Any Smokers In Your House? Yes MIGRATION.0301 470901 Information not available 07/20/2022 How Much Tobacco Do You Smoke? 1 PPD MIGRATION.0301 817232 Information not available 07/20/2022 Do You Use Sunscreen Routinely? No MIGRATION.0301 031544 Information not available 07/20/2022 Has Tobacco Cessation Counseling Been Provided? Yes [email or web address] Information not available 10/12/2023 On What Date Was Tobacco Cessation Counseling Provided? 10/12/2023 [email or web address] Information not available 10/12/2023 How Many Years Have You Smoked Tobacco? 47 MIGRATION.0301 241568 Information not available 07/20/2022 Have You Recently Traveled Abroad? No MIGRATION.0301 133727 Information not available 07/20/2022 Do You Have Difficulty Walking Or Climbing Stairs? No MIGRATION.0301 459813 Information not available 07/20/2022 Do You Have Any Dietary Restrictions? No MIGRATION.0301 459918 Information not available 07/20/2022 Sex: Female Functional Status Question Answer Note LastModified by Organizat ion Details LastModified Time Do you or have you ever used smokeless tobacco? Never used smokeless tobacco MIGRATION.86731 96099 Information not available 07/20/2022 Are you currently employed? No Information not available 07/27/2023 Have you been exposed to chemicals or toxins? not that aware of Information not available 07/31/2023 Do you have transportation difficulties? No MIGRATION.05006 30308 Information not available 07/20/2022 Are you able to care for yourself? Yes MIGRATION.85233 63116 Information not available 07/20/2022 Do you have difficulty dressing or bathing? No MIGRATION.90868 04199 Information not available 07/20/2022 Do you or have you ever used e-cigarettes or vape? Former user of electronic cigarettes Vape MIGRATION.45662 15521 Information not available 07/20/2022 What is your exercise level? Occasional active lifestyle MIGRATION.73346 27223 Information not available 07/20/2022 Do you use any illicit or recreational drugs? No MIGRATION.76965 89896 Information not available 07/20/2022 Do you or have you ever used any other forms of tobacco or nicotine? Yes MIGRATION.32228 99623 Information not available 07/20/2022 What is your level of alcohol consumption? None MIGRATION.95584 38506 Information not available 07/20/2022 Are you able to walk? YESWOREST MIGRATION.82294 54210 Information not available 07/20/2022 Do you have difficulty doing errands alone? No MIGRATION.53009 29529 Information not available 07/20/2022 What is your occupation? Retired MIGRATION.01358 93868 Information not available 07/20/2022 Mental Status Question Answer Note LastModified by Organizat ion Details LastModified Time Do you feel stressed (tense, restless, nervous, or anxious, or unable to sleep at night)? [id number] Information not available 10/12/2023 Do you have difficulty concentrating, remembering or making decisions? No MIGRATION.46468993 26 Information not available 07/20/2022 Family History Relationship Description Onset Age of this Age Resolved Age Notes LastModified by Organization Details LastModified Time Father Hypertensive disorder MIGRATION.134 [id number] Not available 07/20/2022 04:42:59 Father Cerebrovascu lar accident [email or web address] Not available 0 09/12/2024 11:22:59 Mother Diabetes mellitus MIGRATION.957 [id number] Not available 07/20/2022 04:42:59 Sister Leukemia [email or web address] Not availa ble 09/12/2024 11:22:59 Sister Disorder of thyroid gland PT REPORT S THAT HER SISTER TAKES THYROI D MEDICA TION [email or web address] Not available 10/12/2023 15:00:13 Maternal Uncle Heart disease 1 1 [email or web address] Not available 2023 11:51:03 Brother Leukemia [email or web address] Not avail able 09/12/2024 11:22:59 Medical History Condition Response NERVE DISEASE N [...] APNEA N CHICKENPOX N INFECTIOUS DISEASE N HEART ARRHYTHMIA N PROSTATE N INSOMNIA N HIGH CHOLESTEROL / HYPERLIPIDEMIA Y HYPERTHYROIDISM N EYE PROBLEMS N EDEMA N CHRONIC PAIN SYNDROME N HYPOTHYROIDISM N CAROTID BLOCKAGE N CONSTIPATION N BACK / NECK PROBLEMS N HAVE YOU BEEN HOSPITALIZED OR SEEN IN [facility] IN THE PAST YEAR ? Y ATHEROSCLEROSIS [...] Time Influenza, high-dose, quadrivalent, PF 2 completed 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 [facility] [facility] 09/12/2024 11:30:10 COVID-19, mRNA, LNP-S, bivalent, PF, 30 mcg/0.3 mL dose 2 completed 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 [employer] 09/12/2024 11:30:10 influenza, unspecified formulation 9 completed Patricia Adamson RMA vivi [employer] 09/12/2024 11:30:10 Influenza, high-dose, quadrivalent, PF 2 completed Not Available [facility] 01/17/2023 04:09:30 COVID-19, mRNA, LNP-S, PF, 100 mcg/0.5mL dose or 50 mcg/0.25mL dose 1 completed 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 [employer] 09/12/2024 11:30:10 COVID-19, mRNA, LNP-S, PF, 100 mcg/0.5mL dose or 50 mcg/0.25mL dose 1 completed Patricia Adamson RMA null, [facility] 09/12/2024 11:30:10 COVID-19, mRNA, LNP-S, PF, 100 mcg/0.5mL dose or 50 mcg/0.25mL dose 1 completed Patricia Adamson RMA null, [facility] 09/12/2024 11:30:10 Pneumococcal conjugate PCV20, polysaccharide [id number] conjugate, adjuvant, PF 2 completed Not Available [facility] 01/17/2023 04:09:30 Influenza, high-dose, quadrivalent, PF 1 completed Not Available [facility] 01/17/2023 04:09:30 Influenza, split virus, quadrivalent, PF 9 completed Not Available [facility] 01/17/2023 04:09:31 Influenza, high-dose, quadrivalent, PF 3 completed Clara Barber MD [address] [facility], [place], [address], [facility] 05/09/2023 14:02:28 Influenza, high-dose, trivalent, PF 4 completed 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, [facility] 02/15/2024 16:06:54 Past Encounters Encounter ID Performer Location Encounter Start Date Encounter Closed Date Diagnosis/Indication Diagnosis SNOMED-CT Code Diagnosis ICD10 Code Diagnosis Note [id number] MD BEBETO Ramon_[facility] [address] [place] , [address] [place] [address] 09/10/2020 00:00:00 09/10/2020 13:24:11 [id number] MD BEBETO Ramon_[facility] [address] [place] [address] 10/26/2020 00:00:00 10/26/2020 15:38:10 [id number] Clara stapleton MD [facility] Internal Med [facility] [address] [place] [address] Ave[address] [address] 01/26/2021 00:00:00 01/26/2021 20:34:41 [id number] Clara stapleton MD [facility] Internal Med [facility] [address] [place] [address] Ave[address] [address] 04/13/2021 00:00:00 04/13/2021 11:52:13 [id number] Clara stapleton MD [facility] Internal Med [facility] [address] [address] 09/06/2021 00:00:00 09/06/2021 15:03:42 [id number] Clara stapleton MD [facility] Internal Med [facility] [address] [place] [address] Ave[address] [address] 01/10/2022 00:00:00 01/10/2022 14:21:12 [id number] Clara stapleton MD [facility] Internal Med [facility] [address] [address] 05/06/2022 00:00:00 05/06/2022 15:46:21 [id number] Clara stapleton MD [facility] Internal Med [facility] [address] [address] 11/07/2022 13:58:49 11/07/2022 14:26:23 Acid reflux 882266670 K21.9 on omeprazole , she is aware of risks, benefits, side effects Type 2 natan betes mellitus without complication 783770781 E11.9 on victoza, metformin pt is aware of side effects, risks, benefitspt denies any personal or family history of MEN II or MTC, denies and personal history of pancreatit ispt knows to call the office if any severe n/v or abdominal pain DM eye exam and daily foot checks recommende d Hyperlipidemia 64597100 E78.5 on atorvastat in Nicotine dependence 5629 4008 F17.200 3 minutes spent with patient discussing risks, cessation options. Patient encouraged to quit. LDCT- 09/2021 Chest pain 51043460 R07. 9 She did see cardiology - Dr. Rivas has not done her echo or her stress Tran in the interim if pain recurs Chronic ob structive pulmonary disease 05182605 J44.9 on proair prn, didn't case picker the Anoro, doesn't think she needs it Steatotic liver disease 414167346 K76.0 incidental ly noted on LDCT, declines any referral or liver u/s Multiple n odules of lung 221079659 R91.8 Next LDCT due 09/2022 History of malignant neoplasm of bladder 006859303 Z85.51 follows urology at [facility] check declined 063584447 Z53.20 risks explained including missed cancer and Screening for malignant neoplasm of colon 544868704 Z12.11 Pt refuses screening colonoscop y but agrees to Cologuard. All risks explained to her, including that Cologuard may miss 8% of cancers.Sh e reports she has the box at home, encouraged her to do this Osteoporosis 18478621 M8 1.0 on alendronat eshe is aware to take with a full glass of water and not lie down for 60 min after taking on OTC calcium, vitamin d weight bearing exercise recommende d Heart murmur 78178203 R0 1.1 get re-estabis hed with cardiology as above Adult [facility] examination 028204740 Z00.01 Depression screening 171 184185 Z13.31 Screening mammography 24 848157 Z12.31 Vitamin D deficiency 347 25021 E55.9 on OTC supplement [id number] Clara stapleton MD [facility] [address] [facility] [place] [address] 02/21/2023 14:02:58 02/21/2023 14:49:38 Transition of care 9678110031 105 Z75.8 History of total cystectomy 004667456 Z90.6 has upcoming appt with surgeon on MondayHH ordered Sepsis 56645413 A41.9 [facility] will call today to get her follow up appt scheduled Acid reflux 904011573 K2 1.9 on omeprazole , she is aware of risks, benefits, side effects Type 2 natan betes mellitus without complication 336553486 E11.9 on victoza, metformin pt is aware of side effects, risks, benefitspt denies any personal or family history of MEN II or MTC, denies and personal history of pancreatit ispt knows to call the office if any severe n/v or abdominal pain DM eye exam and daily foot checks recommende d Hyperlipidemia 93491728 E78.5 on atorvastat in Nicotine dependence 5629 4008 F17.200 3 minutes spent with patient discussing risks, cessation options. Patient encouraged to quit. LDCT- 09/2021- was ordered 10/2022 Chest pain 52502622 R07. 9 She did see cardiology - Dr. Rivas has not done her echo or her stress Tran in the interim if pain recurs Chronic ob structive pulmonary disease 90189312 J44.9 on proair prn, didn't case picker the Anoro, doesn't think she needs it Steatotic liver disease 288926590 K76.0 incidental ly noted on LDCT, declines any referral or liver u/s Multiple n odules of lung 127296594 R91.8 Next LDCT due 09/2022 History of malignant neoplasm of bladder 414603610 Z85.51 follows urology at [facility] Well woman health check declined [id number] Z53.20 risks explained including missed cancer and Screening for malignant neoplasm of colon 426534506 Z12.11 Pt refuses screening colonoscop y but agrees to Cologuard. All risks explained to her, including that Cologuard may miss 8% of cancers.Sh betsy reports she has the box at home, encouraged her to do this was ordered 10/2022 Osteoporosis 04396812 M8 1.0 on alendronat eshe is aware to take with a full glass of water and not lie down for 60 min after taking on OTC calcium, vitamin d weight bearing exercise recommende d Screening mammography 24 806937 Z12.31 was ordered 10/2022 Vitamin D deficiency 347 26560 E55.9 on OTC supplement Muscle weakness 67596152 M62.81 she will benefit from walker to assist with safely completing her ADLs both in and out of the house Abdominal abscess 051211 08 K65.1 as above [id number] Clara stapleton MD [facility] [address] [facility] [address] [place] [address] 04/20/2023 15:18:46 04/20/2023 16:21:10 Screening - NAD 089499326 Z13.9 C-scope: cologuard was ordered 11/07/2022 , [...] above Screening for malignant neoplasm of breast 305920438 Z12.39 Gynecologi c examination 06691824 Z01.419 Chronic ob structive pulmonary disease 39408255 J44.9 Seen on LDCTGet a referral to Dr Barrios Smoker 77624260 F17.200 Advised to quit smoking! LDCT 09/28/2021 : Emphysema, CAD Coronary arteriosclerosis 13486684 I25.10 Seen on LDCT, get a referral to cardiology Type 2 natan betes mellitus without complication 073992328 E11.9 On jardiance 25mg dailyOn metformin 500mg bidOn victozaGet labs Essential hypertension 22070992 I10 On lisinopril 2.5mg daily Hyperlipidemia 75414832 E78.5 On atorvastat in 40mg dailyGet labs Serum johny min B12 below reference range 269298347 R79.89 Vitamin D deficiency 347 70694 E55.9 Gastroesop hageal reflux disease without esophagitis 767736871 K21.9 On omeprazole Get an EGD done Malignant neoplasm of urinary bladder 435663586 C67.9 Dr Rodríguez urologyS/p surgeryNow has cath and bag Nausea 347700554 R11.0 On zorfran PRN Low back pain 775595059 M54.50 Get xrays, may need to see pain management Screening for malignant neoplasm of colon 833227435 Z12.11 Administra tion of influenza vaccine 07694316 Z23 Screening mammography 24 570099 Z12.31 [id number] Clara stapleton MD [facility] Internal Med [facility] [address] [facility], [facility] [address] [place] [address] 07/27/2023 11:50:21 07/27/2023 12:37:47 Screening - NAD 900346768 Z13.9 C-scope: cologuard was ordered 11/07/2022 , [...] ing of the above Gynecologi c examination 16006216 Z01.419 Chronic ob structive pulmonary disease 96802792 J44.9 LDCT 06/14/2023 : Next in one year Dr Sophie newman 07/31/2023 Smoker 56320276 F17.200 Advised to quit smoking! LDCT 09/28/2021 : Emphysema, CADLDCT 06/14/2023 : Next in one year Coronary arteriosclerosis 25971932 I25.10 Seen on LDCT, get a referral to cardiology Type 2 natan betes mellitus without complication 937891527 E11.9 On jardiance 25mg dailyOn metformin 500mg bid, will d/c this also as she has noted some low sugars and A1C is stable on 07/05/2023 Off the victozaGet labs Essential hypertension 55828692 I10 On lisinopril 2.5mg daily Hyperlipidemia 89871070 E78.5 On atorvastat in 40mg dailyDiet and exercise is neededGet labs Serum johny min B12 below reference range 961935656 R79.89 Get on B12 weekly for 4 weeks and then monthly for 3 months and repeat the labs Vitamin D deficiency 347 94386 E55.9 Gastroesop hageal reflux disease without esophagitis 535904488 K21.9 On omeprazole Get an EGD done Malignant neoplasm of urinary bladder 480679536 C67.9 Dr Rodríguez urologyS/p surgeryNow has cath and bag Nausea 061271374 R11.0 On zorfran PRN Low back pain 568852548 M54.50 Get xrays, may need to see pain management Xrays notd 06/14/2023 Screening for malignant neoplasm of colon 919351076 Z12.11 Hyperkalemia 75204290 E8 7.5 Repeat the labs Proteinuria 08713263 R80 .9 Thrombocytosis 7609189 D 75.839 Repeat the labs Hypothyroidism 63280093 E03.9 Get US thyroid and repeat the labsMay need to be on synthroid [id number] Christine Barrios MD [facility] [address] [address] 07/31/2023 10:53:34 08/01/2023 09:00:04 Solitary nodule of lung 785116789 R91.1 Chronic cough 54120695 R 05.3 R06.00 T78.40XA D89.9 [id number] Gaby Stout MD [facility] [address] [place] [address] 09/28/2023 11:28:55 09/29/2023 10:51:01 Thyroid nodule 280384901 E04.1 [id number] Clara stapleton MD [facility] Internal Med [facility] [address] [place] [address] 10/12/2023 14:59:09 10/12/2023 16:08:46 Screening - NAD 617237143 Z13.9 C-scope: cologuard was ordered 11/07/2022 , [...] ing of the above Gynecologi c examination 55941368 Z01.419 Chronic ob structive pulmonary disease 14469310 J44.9 LDCT 06/14/2023 : Next in one year Dr Barrios apt 07/31/2023 Smoker 29070961 F17.200 Advised to quit smoking! LDCT 09/28/2021 : Emphysema, CADLDCT 06/14/2023 : Next in one year Coronary arteriosclerosis 42284290 I25.10 ECHO 07/27/2023 : EF 55%Stress test 09/29/2023 : Negative Dr Graf 2023 : Next apt in 3 months Type 2 natan betes mellitus without complication 888754120 E11.9 On jardiance 25mg dailyOn metformin 500mg bid, will d/c this also as she has noted some low sugars and A1C is stable on 07/05/2023 Off the victozaGet labs Essential hypertension 82209835 I10 On lisinopril 2.5mg daily Hyperlipidemia 02100233 E78.5 On atorvastat in 40mg dailyDiet and exercise is neededGet labs Serum johny min B12 below reference range 573212852 R79.89 Repeat the labs Vitamin D deficiency 347 08711 E55.9 Gastroesop hageal reflux disease without esophagitis 571495734 K21.9 On omeprazole Get an EGD done Malignant neoplasm of urinary bladder 156498259 C67.9 Dr Rodríguez urologyS/p surgeryNow has cath and bag Nausea 404086109 R11.0 On zorfran PRN Low back pain 941895665 M54.50 Get xrays, may need to see pain management Xrays notd 06/14/2023 Screening for malignant neoplasm of colon 464901184 Z12.11 Hyperkalemia 81018286 E8 7.5 Repeat the labs Proteinuria 96526298 R80 .[address] Eligio Sanchez calcitriol On VIT DOn fosamax Thrombocytosis 9309485 D 75.839 Repeat the labs Hypothyroidism 99727106 E03.9 US thyroid 08/10/2023 : Get FNACGet on synthroid Adult heal th examination 400841983 Z00.00 Screening for disorder 365534325 Z13.9 Thyroid nodule 429765669 E04.1 Dr Stout 09/28/2023 to get FNAC [id number] Clara stapleton MD [facility] [address] [facility], [address] [place] [address] 02/15/2024 15:12:37 02/15/2024 16:04:44 Chronic obstructive pulmonary disease 07034011 J44.9 LDCT 06/14/2023 : Next in one year Dr Sophie newman 07/31/2023 Screening - NAD 04419913 3 Z13.9 C-scope: cologuard was ordered 11/07/2022 [...] ing of the above Gynecologi c examination 01525944 Z01.419 Smoker 05478701 F17.200 Advised to quit smoking! LDCT 09/28/2021 : Emphysema, CADLDCT 06/14/2023 : Next in one year Coronary arteriosclerosis 70614817 I25.10 ECHO 07/27/2023 : EF 55%Stress test 09/29/2023 : Negative Dr Graf 2023 : Next apt in 3 months Type 2 natan betes mellitus without complication 840409184 E11.9 On jardiance 25mg dailyOn metformin 500mg bid, was told d/c this also as she has noted some low sugars and A1C was stable on 07/05/2023 , however she is still taking thisOff the victozaGet labs Essential hypertension 76797414 I10 On lisinopril 2.5mg daily Hyperlipidemia 30859467 E78.5 On atorvastat in 40mg dailyDiet and exercise is neededGet labs Serum johny min B12 below reference range 810164392 R79.89 Repeat the labs Vitamin D deficiency 347 12415 E55.9 Gastroesop hageal reflux disease without esophagitis 949610507 K21.9 On omeprazole Get an EGD done Malignant neoplasm of urinary bladder 895954682 C67.9 Dr Rodríguez urologyS/p surgeryNow has cath and bag Nausea 751007999 R11.0 On zorfran PRN Low back pain 453881172 M54.50 Get xrays, may need to see pain management Xrays notd 06/14/2023 Screening for malignant neoplasm of colon 684576223 Z12.11 Proteinuria 75029484 R80 .[address] Eligio Sanchez calcitriol On VIT DOn fosamax Thrombocytosis 3858986 D 75.839 Repeat the labs Hypothyroidism 97983603 E03.9 US thyroid 08/10/2023 : Get FNACS/p bx: Neg 12/27/[address] Pineda et labs Screening for osteoporosis 940010658 Z13.820 Administra tion of influenza vaccine 66834517 Z23 [id number] Clara stapleton MD S[facility] Internal Med [facility] [address] [facility], [facility] [address] [place] [address] 06/13/2024 15:05:05 06/13/2024 16:32:42 Chronic obstructive pulmonary disease 15624545 J44.9 LDCT 06/14/2023 : Next in one year Dr Barrios apt 07/31/2023 Screening - NAD 23399172 3 Z13.9 C-scope: cologuard was ordered 11/07/2022 [...] ing of the above Gynecologi c examination 49632418 Z01.419 Smoker 26005612 F17.200 Advised to quit smoking! LDCT 09/28/2021 : Emphysema, CADLDCT 06/14/2023 : Next in one year Coronary arteriosclerosis 44023369 I25.10 ECHO 07/27/2023 : EF 55%Stress test 09/29/2023 : Negative Dr Graf 2023 : Next apt in 3 months Type 2 natan betes mellitus without complication 539170147 E11.9 On jardiance 10mg dailyOn metformin 500mg bid, was told d/c this also as she has noted some low sugars and A1C was stable on 07/05/2023 , however she is still taking thisOff the OtogamiMore diet and exercise Essential hypertension 05438688 I10 On lisinopril 2.5mg daily Hyperlipidemia 21866831 E78.5 On atorvastat in 40mg dailyDiet and exercise is neededGet labs Serum johny min B12 below reference range 664119437 R79.89 Repeat the labs Vitamin D deficiency 347 50453 E55.9 Gastroesop hageal reflux disease without esophagitis 761867094 K21.9 On omeprazole Get an EGD done Malignant neoplasm of urinary bladder 850170944 C67.9 Dr Rodríguez urologyS/p surgeryNow has cath and bag Nausea 780232635 R11.0 On zorfran PRN Low back pain 501766959 M54.50 Get xrays, may need to see pain management Xrays notd 06/14/2023 Screening for malignant neoplasm of colon 586122609 Z12.11 Proteinuria 49576146 R80 .[address] Eligio Sanchez calcitriol On VIT DOn fosamax Thrombocytosis 6684547 D 75.839 Repeat the labsAlso refer to hematology Hypothyroidism 12348526 E03.9 US thyroid 08/10/2023 : Get FNACS/p bx: Neg 12/27/[address] Pineda et labs Screening for osteoporosis 884303278 Z13.820 Screening mammography 24 284479 Z12.31 Cigarette smoker 0719994 7 F17.988 [id number] Clara stapleton MD [facility] [address] [facility] [address] [place] [address] 09/12/2024 11:21:52 09/12/2024 12:16:54 Chronic obstructive pulmonary disease 91811263 J44.9 LDCT 06/14/2023 : Next in one year Dr Sophie newman 07/31/2023 Screening - NAD 63213466 3 Z13.9 C-scope: cologuard was ordered 11/07/2022 [...] ing of the above Gynecologi c examination 20648867 Z01.419 Smoker 49629974 F17.200 Advised to quit smoking! counselled regarding her smoking, she states that she still smokes 1PPDToday 09/12/2024 she has declined any NRT or chantix, states that she did take chantix in the past and it made her feel weird LDCT 09/28/2021 : Emphysema, CADLDCT 06/14/2023 : Next in one yearLDCT 08/17/2024 , next in 3 months Coronary arteriosclerosis 97767068 I25.10 ECHO 07/27/2023 : EF 55%Stress test 09/29/2023 : Negative Dr Graf 2023 : Next apt in 3 months Now wants to see Dr Del Valle [facility], referral was provided to [facility] 09/12/2024 Type 2 natan betes mellitus without complication 968238253 E11.9 On jardiance 10mg dailyOn metformin 500mg bid, was told d/c this also as she has noted some low sugars and A1C was stable on 07/05/2023 , however she is still taking thisOff the OtogamiMore diet and exercise Essential hypertension 71450294 I10 On lisinopril 2.5mg daily Hyperlipidemia 66740165 E78.5 On atorvastat in 40mg dailyDiet and exercise is neededGet labs Serum johny min B12 below reference range 340735289 R79.89 Repeat the labs Vitamin D deficiency 347 32882 E55.9 Gastroesop hageal reflux disease without esophagitis 450706888 K21.9 On omeprazole Get an EGD done Malignant neoplasm of urinary bladder 872392900 C67.9 Dr Rodríguez urologyS/p surgeryNow has cath and bag Nausea 725382897 R11.0 On zorfran PRN Low back pain 346940126 M54.50 Get xrays, may need to see pain management Xrays notd 06/14/2023 Screening for malignant neoplasm of colon 161060302 Z12.11 Proteinuria 97223892 R80 .[address] Eligio Sanchez calcitriol On VIT DOn fosamax Thrombocytosis 5269242 D 75.839 Repeat the labsAlso refer to hematology Hypothyroidism 95187197 E03.9 US thyroid 08/10/2023 : Get FNACS/p bx: Neg 12/27/[address] Pineda et labs Screening for osteoporosis 997632926 Z13.820 Screening mammography 24 215533 Z12.31 Chronic ki dney disease 174211651 N18.[address] Eligio FORD Postmenopausal state 764 45206 Z78.0 [id number] Christine Barrios MD S_[facility] Pulmonolo gy [place] [address] 10/17/2024 11:35:18 10/17/2024 14:02:32 Solitary nodule of lung 413927389 R91.1 R91.8 Chronic cough 14897145 R 05.3 R06.00 T78.40XA D89.9 Exposure t o Mycobacterium tuberculosis 008520960 Z20.1 Health Concerns Section Related Observation LastModified by Organization Detai ls LastModified Time None Recorded Concern Status LastModified by Organization Details LastModified Time None Recorded Advance Directives Directive N: Patient given information . Payers Encounter Date Sequence Insurance Name Policy Number Policy Terry Covered Member ID Terry Member ID Guarantor Name 10/12/2023 1 [facility] (MEDICARE REPLACEMENT/A DVANTAGE - PPO) [id number] Dea Perez [id number] Dea Perez 10/12/2023 2 [place] Dea Mayo Manninger [id number] Dea Mayo Manninger 02/15/2024 1 [facility] (MEDICARE REPLACEMENT/A DVANTAGE - PPO) [id number] Dea Mayo Manninger [id number] Dea Mayo Manninger 02/15/2024 2 [place] Dea Mayo Manninger [id number] Dea Mayo Manninger 06/13/2024 1 [facility] (MEDICARE REPLACEMENT/A DVANTAGE - PPO) [id number] Dea Mayo Manninger [id number] Dea Mayo Manninger 06/13/2024 2 [place] [facility] Dea Mayo Manninger [id number] Dea Mayo Manninger 09/12/2024 1 [facility] (MEDICARE REPLACEMENT/A DVANTAGE - PPO) [id number] Dea Mayo Manninger [id number] Dea Mayo Manninger 09/12/2024 2 [place] [facility] Dea Mayo Manninger [id number] Dea Mayo Manninger 10/17/2024 1 [facility] (MEDICARE REPLACEMENT/A DVANTAGE - PPO) [id number] Dea Mayo Manninger [id number] Dea Mayo Manninger 10/17/2024 2 [place] [facility] Dea Mayo Manninger [id number] Dea Perez Notes Date Note Type Note Provider Name and Address Organization Details Recorded Time text/html OV 04/20/2023: Here to establish care Past Hx:HTNHLDDMIIGERDS/p bladder surgerySmokerCOPD [...] here with her daughter Joyce Barber MD [address] [place] [address], [place] [address], [place], [address], [facility] 10/12/2023 16:33:38 4 text/html OV 04/20/2023: Here to establish care Past Hx:HTNHLDDMIIGERDS/p bladder surgerySmokerCOPD [...] is here with Joyce Barber MD [address] [facility], [place], [address], [facility] [employer] 02/19/2024 18:30:08 5 text/html OV 04/20/2023: Here to establish care Past Hx:HTNHLDDMIIGERDS/p bladder surgerySmokerCOPD [...] not yet reported Clara Barber MD [address] [facility], [place], [address], [facility] [employer] 06/13/2024 18:30:21 5 text/html OV 04/20/2023: Here to establish care Past Hx:HTNHLDDMIIGERDS/p bladder surgerySmokerCOPD [...] labs but these are not yet reported OV 09/12/2024: Here for her f/u apt, she is doing well today, she did do the labs Clara Barber MD [address] [place] [address], [address], [address], [place] [facility] [employer] 09/12/2024 12:24:37 5 text/html Primary care/Referring provider: Clara Barber MD Patient is here to go over cough evaluation and management. Initial development of cough: 2014Duration of cough: 11 yearsNature of cough: productive of clear sputumCondition of cough: stableTiming of cough: night > dayFrequency: up to 5 times a dayLimits activities: yesAggravating factors: walking briskly, stretchingAlleviating factors: resting Treatment history:None Other symptoms:Drooling: noDysarthria: noNeck pain: noOdynophagia: noDysphagia: noWeak mastication: noFacial weakness: noNasal speech: noProtruding tongue: noWheezing: noChest tightness: yesOrthopnea: noFrequent throat clearing or swallowing: noPalpitations: noHeartburn: noEdema: no Modified [employer] [place] (mMRC) Dyspnea Scale - Grade 1Grade 0 I only get breathless with strenuous exercise .Grade 1 I get short of breath when hurrying on the level or walking up a slight hill .Grade 2 I walk slower than people of the same age on the level because of breathlessness or have to stop for breath when walking at my own pace on the level .Grade 3 I stop for breath after walking about 100 yards or after a few minutes on the level .Grade 4 I am too breathless to leave the house or I am breathless when dressing . Environmental exposures:Nicotine smoke: 1.5 ppd 1976-present (quit 2 years in between) =70.5 pack yearsPaint: noDye: noDust mites: yesMold: noDamp basement: noWood burning stove: noAnimal dander: dogsCockroaches: noPollen: yesArsenic: noAsbestos: noBeryllium: noCadmium: noChromium: noCoal smoke: noDiesel fumes: noNickel: noSilica: noSoot: no EPWORTH SLEEPINESS SCALE (ESS) CHANCE OF DOZING SCORE0 = would never doze1 = slight chance of dozing2 = moderate chance of dozing3 = high chance of dozing SITUATION AND CHANCE OF DOZINGSitting and reading - 1Watching television - 2Sitting inactive in a public place (e.g. a theater or meeting) - 0As a passenger in a car for an hour without a break - 0Lying down to rest in the afternoon when circumstances permit - 2Sitting and talking to someone - 0Sitting quietly after lunch without alcohol - 0In a car, while stopped for a few minutes in the traffic - 0TOTAL SCORE 5Subjectively, patient has a slight chance of dozing. Christine Barrios MD [address] [facility], [facility] [address], [place], [address], [facility] 10/17/2024 12:20:58 OBGyn Episode No OBEpisode recorded.
--- OUTSIDE RECORDS SUMMARY | 2024-10-23 09:29 | XMS_ITS ---
Author Organization [facility] Address [address] [facility] [address] [facility] [address] [place] [address] Care Team Providers Care Chummer Name Role Phone Eligio Shubham Unavailable [phone] Encounters Encounter Location Date Provider Diagnosis [place] [facility] [address] [facility] [address] [place] [address] 07/19/2024 Shubham Del Valle Plan Of Treatment Next Appt Details Provider Name:Shubham Eligio , 01/01/2025 02:45:00 PM, [address] [facility], [facility] [address], [place], [address], Progress Notes * MARCY BARKEROB:[birth year] (69 yo F)Acc No.[id number]:07/19/2024 Progress Notes Patient: BINA DESHPANDE Provider: Angela PATRICIA MD, Vince.Avery.C.P, F.A.S.N. :1955 A ge:68 Y S ex:Female Date:07/19/2024 Address:[address] [place] [address] Subjective: * Chief Complaints: * * Medical History: Objective: * Vitals: Assessment: Plan: * Treatment: * Billing Information: * Visit Code: * Procedure Codes: * Electronic signature of Mary Del Valle MD on 10/23/2024 at 09:28 AM CDT Sign off status: Pending * Provider: Angela PATRICIA MD, Vince.Avery.C.P, F.A.S.N. Date: 07/19/2024 Generated for Printing/Faxing/eTransmitting on: 10/23/2024 09:28 AM CDT
--- OUTSIDE RECORDS SUMMARY | 2024-10-23 09:30 | XMS_ITS ---
Author Organization [facility] Address [address] [facility] [place] [address] Care Team Providers Care Fiber Optic Splicer Name Role Phone Tenzin Vanna WIGGINS-COVER MAT MACHINE OPERATOR Primary Care Provider [phone] Active Problems Problem Noted Date Diagnosed Date [...]
--- OUTSIDE RECORDS SUMMARY | 2024-10-23 09:30 | XMS_ITS | Encounter Summary ---
Author Organization [employer] , [facility] Address [address] [place] [address] Phone Care Team Providers Care Wind Energy Mechanic Name Role Phone Vanna Dave Primary Care Provider Unava ilable Reason for Visit * Reason Comments Med Refill Encounter Details Date Type Department Care Team (Late st Contact Info) Description 09/02/2021 Refill [place] [facility], [address] [address] [place]ão [place] [address] [place] [address] Social History Tobacco Use Types Packs/Day [...] on filedocumented in this encounter Care Teams Wind Energy Mechanic Relationship Specialty Start Date End Date Vanna Dave FNP-C PCP - General Nurse Practitioner 02/07/22 documented as of this encounter
--- OUTSIDE RECORDS SUMMARY | 2024-10-23 09:30 | XMS_ITS | Patient Health Record ---
Author Organization [facility] Address [address] [facility] [address] [facility] [address] [place] [address] Care Team Providers Care Paper Cup Handle Machine Operator Name Role Phone Shubham Del Valle Unavailable [phone] Reason For Referral No Information Medications Medication SIG (Take, Route, Frequency, Duration) Notes Start Date End Date Status Ergocalciferol 1.25 MG (49660 UT) 1 capsule Orally Once a week for 90 day(s) 09/20/2023 06/22/2025 Active Calcitriol 0.25 MCG TAKE 1 CAPSULE BY MO UTH EVERY DAY FOR 90 DAYS for 90 Active Jardiance 10 MG TAKE 1 TABLET BY REESE TH EVERY DAY for 90 Active Problems Problem Type SNOMED Code ICD Code Onset Dates Problem Status W/U Status Risk Notes Problem Secondary hyperparathyroidism (57705987) Secondary hyperparathyroid ism, not elsewhere classified (E21.1) Active confirmed Problem Vitamin D deficiency (85691657) Vitamin D deficiency, unspecified (E55.9) Active confirmed Problem Hypo-osmolality and or hyponatremia (210646764) Hypo-osmolality and hyponatremia (E87.1) Active confirmed Problem Hyperkalemia (61728291) Hyperkalemia (E87.5) Active confirmed Problem Essential hypertension (54677826) Essential (primary) hypertension (I10) Active confirmed Problem Renal osteodystrophy (70537848) Renal osteodystrophy (N25.0) Active confirmed Problem Edema (40061752) Edema, unspecified (R60.9) Active confirmed Problem Tobacco use (455876172) Tobacco use (Z72.0) Active confirmed Problem Type II diabetes mellitus without complication (784596060) Type 2 diabetes mellitus without complications (E11.9) Active confirmed Problem Chronic kidney disease stage 3 (disorder) (033774716) Chronic kidney disease, stage 3 unspecified (N18.30) Active confirmed Encounters Encounter Location Date Provider Diagnosis [place] [facility] [address] [facility] [address] [place] [address] 02/07/2024 Shubham Del Valle Chronic kidney disea se, stage 2 (mild) N18.2 ; Hyperkalemia E87.5 ; Essential (primary) hypertension I10 ; Edema, unspecified R60.9 ; Renal osteodystrophy N25.0 ; Secondary hyperparathyroidism, not elsewhere classified E21.1 and Vitamin D deficiency, unspecified E55.9 [facility] [place] [facility] [address] [place] [address] 05/08/2024 Shubham Del Valle Stage 3 chronic kidn ey disease N18.30 ; Type 2 diabetes mellitus without complications E11.9 ; Hypo-osmolality and hyponatremia E87.1 and Vitamin D deficiency, unspecified E55.9 [facility] [address] [address] 09/25/2024 Shubham Del Valle Chronic kidney disea se, stage 3 unspecified N18.30 ; Essential (primary) hypertension I10 ; Edema, unspecified R60.9 ; Renal osteodystrophy N25.0 ; Secondary hyperparathyroidism, not elsewhere classified E21.1 ; Vitamin D deficiency, unspecified E55.9 ; Type 2 diabetes mellitus without complications E11.9 ; Tobacco use Z72.0 ; Hypo-osmolality and hyponatremia E87.1 and Hyperkalemia E87.5 [facility] [address] [place] [address] 09/25/2024 Shubham Del Valle Assessments Encounter Date Diagnosis (ICD Code) Assessment Notes Treatment Notes Treatment Clinical Notes Section Notes 02/07/2024 Chronic kidney disease, stage 2 (mild) (ICD-10 - N18.2) 05/08/2024 Type 2 diabetes mellitus without complications (ICD-10 - E11.9) 05/08/2024 Stage 3 chronic kidney disease (ICD-10 - N18.30) 09/25/2024 Chronic kidney disease, stage 3 unspecified (ICD-10 - N18.30) 05/08/2024 Hypo-osmolality and hyponatremia (ICD-10 - E87.1) 09/25/2024 Essential (primary) hypertension (ICD-10 - I10) 02/07/2024 Hyperkalemia (ICD-10 - E87.5) 02/07/2024 Essential (primary) hypertension (ICD-10 - I10) 05/08/2024 Vitamin D deficiency, unspecified (ICD-10 - E55.9) 09/25/2024 Edema, unspecified (ICD-10 - R60.9) 09/25/2024 Renal osteodystrophy (ICD-10 - N25.0) 02/07/2024 Edema, unspecified (ICD-10 - R60.9) 02/07/2024 Renal osteodystrophy (ICD-10 - N25.0) 09/25/2024 Secondary [...] Appt Details Provider Name:Shubham Del Valle , 01/01/2025 02:45:00 PM, [address] [facility], [facility] [address], [place], [address],
--- OUTSIDE RECORDS SUMMARY | 2024-10-23 09:30 | XMS_ITS | Clinical Summary ---
Author Organization [facility] Address [address] [place] [address] Care Team Providers Care Datapower Developer Name Role Phone TenzinVanna DEVULCANIZER CHARGER-C Primary Care Provider Unabrandy ilable Medications atorvastatin (LIPITOR) 40 MG tablet TAKE 1 TABLET BY MOUTH EVERYDAY AT BEDTIME 90 tablet 04/05/2021 Active Jardiance 25 MG tablet TAKE 1 TABLET BY MOUTH EVERY DAY IN THE MORNING 90 tablet 1 10/24/2022 Active Social History Tobacco Use Types Packs/Day Years [...] Comments Blood Pressure 126/62 06/07/2022 2:57 PM DIGITAL ASSET MANAGER Pulse 68 06/07/2022 2:57 PM DIGITAL ASSET MANAGER Temperature 36.3 C (97.4 F) 06/07/2022 2:57 PM DIGITAL ASSET MANAGER Respiratory Rate 18 06/07/2022 2:57 PM DIGITAL ASSET MANAGER Oxygen Saturation 99% 06/07/2022 2:57 PM DIGITAL ASSET MANAGER Inhaled Oxygen Concentration - - Weight 70.8 kg (156 lb) 02/25/2020 12:00 PM CDT Height 167.6 cm (5' 6) 06/07/2022 2:57 PM DIGITAL ASSET MANAGER Body Mass Index 25.18 02/25/2020 12:00 PM [...] history exists Insurance Medicaid [place] Care Teams Datapower Developer Relationship Specialty Start Date End Date Vanna Dave FNP-C PCP - General Nurse Practitioner 02/07/22
--- OUTSIDE RECORDS SUMMARY | 2024-10-23 09:30 | XMS_ITS | Encounter Summary ---
Author Organization [employer] , [facility] Address [address] [place] [phone] Phone Care Team Providers Care Recycle Coordinator Name Role Phone Vanna Dave Primary Care Provider Unava ilable Reason for Visit * Reason Comments Med Refill Encounter Details Date Type Department Care Team (Late st Contact Info) Description 07/31/2021 Refill [facility], [address] [address] João [place] [address] [place] [address] Social History Tobacco Use Types Packs/Day [...] on filedocumented in this encounter Care Teams Recycle Coordinator Relationship Specialty Start Date End Date Vanna Dave FNP-C PCP - General Nurse Practitioner 02/07/22 documented as of this encounter
--- OUTSIDE RECORDS SUMMARY | 2024-10-23 09:30 | XMS_ITS | Patient Health Record ---
Author Organization [facility] Address [address] [place] [address] Care Team Providers Care French Binding Folder Name Role Phone Shubham Del Valle Unavailable [phone] Reason For Referral No Information Medications Medication SIG (Take, Route, Frequency, Duration) Notes Start Date End Date Status Sodium Bicarbonate 650 MG TAKE 2 TABLETS BY MOUTH TWICE A DAY DIRECTED for 90 Active Problems Problem Type SNOMED Code ICD Code Onset Dates Problem Status W/U Status Risk Notes Problem Anxiety disorder (137303980) Anxiety disorder, unspecified (F41.9) Active confirmed Problem Edema (12520418) Edema, unspecified (R60.9) Active confirmed Problem Proteinuria (52474798) Other proteinuria (R80.8) Active confirmed Problem Essential hypertension (63271133) Essential hypertension (I10) Active confirmed Problem Chronic kidney disease stage 3A (disorder) (998062782) Chronic kidney disease, stage 3a (N18.31) Active confirmed Encounters Encounter Location Date Provider Diagnosis [facility] [address] [place] [address] 12/27/2023 Shubham Del Valle Chronic kidney disease, stage 3a N18.31 ; Essential hypertension I10 ; Other proteinuria R80.8 ; Edema, unspecified R60.9 and Anxiety disorder, unspecified F41.9 [facility] [address] [place] [address] 12/27/2023 Shubham Del Valle Assessments Encounter Date Diagnosis [...]
--- OUTSIDE RECORDS SUMMARY | 2024-10-23 09:30 | XMS_ITS | Data Portability ---
Author Organization [facility] Address [address] [place] [address] Assessment No assessment recorded. Plan of Treatment Reminders Order Date Submit Date Provider Last Modified By Organization Details Last Modified Time Details Appointments None recorded. Lab culture, urine 2017 018 CHITO MIK, [address] [place] [address], [address], [place], [address], 8 15:15:41 HbA1c (hemoglobi n A1c), blood 2017 018 CHITO MIK, [address] [place] [address], [address], [place], [address], 8 13:11:53 CMP, serum or plasma 2017 018 CHITO MIK, [address] [place] [address], [address], [place], [address], 8 13:11:52 lipid panel, serum 2017 018 CHITO [facility], [address] [place] [address], [address], [place], [address], 8 13:11:53 microalbum in, urine 2017 018 CHITO MIK, [address] [place] [address], [address], [place], [address], 8 13:11:54 TSH + free T4, serum 2017 018 [facility], [address], [address], [place], [address], 8 13:11:52 Referral diabetic ophthalmol ogy referral - Please call patient to schedule appt. Thank you 2017 018 [email or web address] Jamey Dewitt MD, [address], [place], [address], 8 17:02:12 urologist referral - Please call patient to schedule appt. Thank you 2017 018 [email or web address] Not available 8 10:38:52 Procedures None recorded. Surgeries None recorded. Imaging LDCT, chest, for lung cancer screening 2017 018 [facility] ([facility]), [address] [facility], [place], [address], 8 15:52:43 Medication Orders phenazopyr idine 200 mg tablet 2017 018 [email or web address] [id number], [address], [place], [address], 8 16:12:34 ciprofloxa ginny 500 mg tablet 2017 018 [email or web address] 6 [id number], [address], [place], [address], 8 16:12:34 Chantix Starting Month Box 0.5 mg (11)-1 mg (42) tablets in dose pack 2017 018 [email or web address] Not available 8 16:12:34 Blood Glucose Test strips 2017 018 INTERFACE [id number], [address], [place], [address], 8 16:13:29 metformin 500 mg tablet 2017 018 INTERFACE [id number], [address], [place], [address], 8 12:21:37 alcohol swabs 2017 018 INTERFACE [id number], [address], [place], [address], 8 12:21:36 atorvastat in 10 mg tablet 2017 018 INTERFACE [id number], [address], [place], [address], 8 12:21:36 Patient TargetsNo targets recorded. Patient [...] 4.500 Not Available [facility] ([facility]) [address] [place], [address], 09/06/2017 13:11:52 09/06/19 18 09/06/2017 TSH + free T4, serum T4,free(dire ct) 1.00 NG/dL 0.82-1 .77 Not Available [facility] ([facility]) [address] [place], [address], 09/06/2017 13:11:52 09/06/19 18 09/06/2017 CMP, serum or plasm a glucose 161 mg/dL 65-99 above high normal Not Available [facility] ([facility]) [address] [facility], [place], [address], 09/06/2017 13:11:52 09/06/19 18 09/06/2017 CMP, serum or plasm a BUN 11 mg/dL 8-27 Not Available [facility] ([facility]) [address] [place], [address], 09/06/2017 13:11:52 09/06/19 18 09/06/2017 CMP, serum or plasm a creatinine 0.73 mg/dL 0.57-1 .00 Not Available [facility] ([facility]) [address] [facility], [place], [address], 09/06/2017 13:11:52 09/06/19 18 09/06/2017 CMP, serum or plasm a eGFR if nonafricn AM 89 mL/mi n/1.7 3 >59 Not Available [facility] ([facility]) [address] [facility], [place], [address], 09/06/2017 13:11:52 09/06/19 18 09/06/2017 CMP, serum or plasm a eGFR if africn AM 102 mL/mi n/1.7 3 >59 Not Available [facility] ([facility]) [address] [facility], [place], [address], 09/06/2017 13:11:52 09/06/19 18 09/06/2017 CMP, serum or plasm a BUN/creatini ne ratio 15 12-28 Not Available [facility] ([facility]) [address] [place], [address], 09/06/2017 13:11:52 09/06/19 18 09/06/2017 CMP, serum or plasm a sodium 141 mmol/ L 134-14 4 Not Available [facility] ([facility]) [address] [place], [address], 09/06/2017 13:11:52 09/06/19 18 09/06/2017 CMP, serum or plasm a potassium 4.7 mmol/ L 3.5-5. 2 Not Available [facility] ([facility]) [address] [place], [address], 09/06/2017 13:11:52 09/06/19 18 09/06/2017 CMP, serum or plasm a chloride 104 mmol/ L 96-106 Not Available [facility] ([facility]) [address] [place], [address], 09/06/2017 13:11:52 09/06/19 18 09/06/2017 CMP, serum or plasm a carbon dioxide, total 20 mmol/ L 18-29 Not Available [facility] ([facility]) [address] [place], [address], 09/06/2017 13:11:52 09/06/19 18 09/06/2017 CMP, serum or plasm a calcium 9.9 mg/dL 8.7-10 .3 Not Available [facility] ([facility]) [address] [place], [address], 09/06/2017 13:11:52 09/06/19 18 09/06/2017 CMP, serum or plasm a protein, total 7.3 g/dL 6.0-8. 5 Not Available [facility] ([facility]) [address] [place], [address], 09/06/2017 13:11:52 09/06/19 18 09/06/2017 CMP, serum or plasm a albumin 4.5 g/dL 3.6-4. 8 Not Available [facility] ([facility]) [address] [place], [address], 09/06/2017 13:11:52 09/06/19 18 09/06/2017 CMP, serum or plasm a globulin, total 2.8 g/dL 1.5-4. 5 Not Available [facility] ([facility]) [address] [place], [address], 09/06/2017 13:11:52 09/06/19 18 09/06/2017 CMP, serum or plasm a A/G ratio 1.6 1.2-2. 2 Not Available [facility] ([facility]) [address] [place], [address], 09/06/2017 13:11:52 09/06/19 18 09/06/2017 CMP, serum or plasm a bilirubin, total 0.2 mg/dL 0.0-1. 2 Not Available [facility] ([facility]) [address] [place], [address], 09/06/2017 13:11:52 09/06/19 18 09/06/2017 CMP, serum or plasm a alkaline phosphatase 102 IU/L 39-117 Not Available [facility] ([facility]) [address] [place], [address], 09/06/2017 13:11:52 09/06/19 18 09/06/2017 CMP, serum or plasm a AST (SGOT) 14 IU/L 0-40 Not Available [facility] ([facility]) [address] [place], [address], 09/06/2017 13:11:52 09/06/19 18 09/06/2017 CMP, serum or plasm a ALT (SGPT) 17 IU/L 0-32 Not Available [facility] ([facility]) [address] [place], [address], 09/06/2017 13:11:52 09/06/19 18 09/06/2017 lipid panel , serum cholesterol, total 251 mg/dL 100-19 9 above high normal Not Available [facility] ([facility]) [address] [place], [address], 09/06/2017 13:11:53 09/06/19 18 09/06/2017 lipid panel , serum triglyceride s 334 mg/dL 0-149 above high normal Not Available [facility] ([facility]) [address] [place], [address], 09/06/2017 13:11:53 09/06/19 18 09/06/2017 lipid panel , serum HDL cholesterol 27 mg/dL >39 below low normal Not Available [facility] ([facility]) [address] [place], [address], 09/06/2017 13:11:53 09/06/19 18 09/06/2017 lipid panel , serum VLDL cholesterol marian 67 mg/dL 5-40 above high normal Not Available [facility] ([facility]) [address] [place], [address], 09/06/2017 13:11:53 09/06/19 18 09/06/2017 lipid panel , serum LDL cholesterol calc 157 mg/dL 0-99 above high normal Not Available [facility] ([facility]) [address] [place], [address], 09/06/2017 13:11:53 09/06/19 18 09/06/2017 lipid panel , serum comment: [employer] Not Available [facility] ([facility]) [address] [place], [address], 09/06/2017 13:11:53 09/06/19 18 09/06/2017 lipid panel , serum LDL/HDL ratio 5.8 ratio 0.0-3. 2 above high normal LDL/H DL Ratio Men Women 1/2 Avg.R isk 1.0 1.5 Avg.R isk 3.6 3.2 2X Avg.R isk 6.2 5.0 3X Avg.R isk 8.0 6.1 Not Available [facility] ([facility]) [address] [place], [address], 09/06/2017 13:11:53 09/06/19 18 09/06/2017 HbA1c (hemo globi n A1c), blood hemoglobin A1C 7.3 % 4.8-5. 6 above high normal Pre-d iabet es: 5.7 - 6.4 Diabe dick: >6.4 Glyce escobar contr ol for adult s with diabe dick: <7.0 Not Available [facility] ([facility]) [address] [facility], [place], [address], 09/06/2017 13:11:53 09/06/19 18 09/06/2017 micro album in, urine albumin, urine 17.0 ug/mL not estab. Not Available [facility] ([facility]) [address] [facility], [place], [address], 09/06/2017 13:11:54 09/06/19 18 09/06/2017 diabe dick patie nt educa tion pdf image . Not Available [facility] ([facility]) [address] [facility], [place], [address], 09/06/2017 13:11:54 02/13/20 18 02/16/2018 cultu re, urine urine culture,comp rehensive Final report abnormal Not Available [facility] ([facility]) [address] [facility], [place], [address], 02/16/2018 15:15:41 02/13/20 18 02/16/2018 cultu re, [...] enem Not Available [facility] ([facility]) [address] [facility], [place], [address], 02/16/2018 15:15:41 02/13/20 18 02/16/2018 cultu re, [...] S Not Available [facility] ([facility]) [address] [facility], [place], [address], 02/16/2018 15:15:41 09/30/19 18 09/29/2017 LDCT, chest , for lung cance r scree brennon No observ ation record ed. [address] ([facility]) [address] [place], [address], 10/17/2017 15:52:44 12/01/19 18 11/30/2017 CT, abdom en + pelvi s, w/wo contr ast No observ ation record ed. [address] (Imaging) [address] [place], [address], 12/13/2017 23:45:03 Result Notes None recorded. Problems Name Problem SNOMED Code Status Onset Date Resolution Date Notes Provider Name and Address Organization Details Recorded Time Type 2 diabetes mellitus 95025934 Active 2017 Giovany Mcguire MD Attn: Denysvika yun,[address] [facility], [place], [address], [place] - [facility] 8 12:04:04 Hyperlipide ritchie 94042028 Active 2017 Giovany Mcguire MD Attn: Denysvika yun,[address] [facility], [place], [address], [place] [facility] 8 12:05:02 History of malignant neoplasm of bladder 574521296 Active 2017 Giovany Mcguire MD Attn: Adelaida yun,[address] [facility], [place], [address], [place] [facility] 8 12:05:38 Tobacco user 062583981 Active 2017 Giovany Mcguire MD Attn: Adelaida yun,[address] [facility], [place], [address], [place] [facility] 8 12:06:02 Former heavy tobacco smoker 5038686563154 00 Active 2017 Giovany Mcguire MD Attn: Adelaida yun,[address] [facility], [place], [address], [place] [facility] 8 16:04:30 Steatotic liver disease 056312485 Active 2017 Giovany Mcguire MD Attn: Adelaida yun,[address] [facility], [place], [address], [place] [facility] 8 15:53:44 Dysuria 72683882 Active 2017 Albert Alexander PA-C Attn: Adelaida g,[address] [facility], [place], [address], [place] [facility] 8 16:06:20 Acute urinary tract infection 010054924 Active 2017 Albert Alexander PA-C Attn: Adelaida yun,[address], [place], [address], [facility] - [facility] 8 17:24:44 Problem Notes None recorded. Procedures Surgical History Date Name Laterality Status Provider Name and Address Organization Details Recorded Time Total hysterectomy completed Kalani Crowley [place] [facility] 09/04/2017 11:17:28 Imaging Results None recorded. Procedure Notes None [...] Updated DateTime 8 167.64 cm 24.1 kg/m2 31033.7 g 98 [degF] 76 /min 97 % 97 % 118 mm[Hg] 78 mm[Hg] Kalani Crowley MA [facility] 8 11:21:51 Date Recorded Body height Body mass index (BMI) Body weight Body temperature Oxygen saturation Oxygen saturation in Arterial blood by Pulse oximetry Heart rate Systolic blood pressure Diastolic blood pressure Provider Name and Address Organization Details Last Updated DateTime 8 167.64 cm 23.6 kg/m2 55638.4 9 g 98.1 [degF] 96 % 96 % 88 /min 110 mm[Hg] 74 mm[Hg] Kalani Crowley MA [facility] 8 15:32:54 Date Recorded Body height Body mass index (BMI) Body weight Oxygen saturation Oxygen saturation in Arterial blood by Pulse oximetry Heart rate Body temperature Systolic blood pressure Diastolic blood pressure Provider Name and Address Organization Details Last Updated DateTime 8 167.64 cm 24.2 kg/m2 40692.8 6 g 96 % 96 % 91 /min 97.9 [degF] 124 mm[Hg] 68 mm[Hg] Gris Rose MA [facility] 8 15:51:32 Social History Question Answer Notes LastModified by Organizat ion Details LastModified Time Tobacco Smoking Status Current Every Day Smoker Kalani Crowley MA [facility] 09/04/2017 11:17:00 What Was The Date Of [...] SNOMED-CT Code Diagnosis ICD10 Code Diagnosis Note [id number] MD Flip Red (Adult Med) [address] [place] [address] 09/04/2017 10:50:53 09/04/2017 12:32:16 Type 2 diabetes mellitus 35242207 E11.9 BS seem OK off meds x 3 mths. Restart with metformin alone. Pt to call with FBS in 2 weeks Hyperlipidemia 31140422 E78.5 History of malignant neoplasm of bladder 090807749 Z85.51 Tobacco user 299133046 Z 72.0 [id number] Giovany Mcguire MD [facility] (Adult Med) [address] [place] [address] 10/17/2017 14:52:16 10/17/2017 16:00:58 Type 2 diabetes mellitus 76399281 E11.9 BS seem OK off meds x 3 mths. Restart with metformin alone. Pt to call with FBS in 2 weeks Hyperlipidemia 61406269 E78.5 History of malignant neoplasm of bladder 945486253 Z85.51 [id number] [facility] [address] [place] [address] 02/12/2018 15:28:09 02/12/2018 16:16:50 Dysuria 77559765 R30.0 Tobacco user 968907123 Z 72.0 Type 2 natan betes mellitus 19033302 E11.9 Health Concerns Section Related Observation LastModified by Organization Detai ls LastModified Time None Recorded Concern Status LastModified by Organization Details LastModified Time None Recorded Advance Directives Directive None Recorded Payers Encounter Date Sequence Insurance Name Policy Number Policy Terry Covered Member ID Terry Member ID Guarantor Name 09/04/2017 2 [place] [employer] Dea Perez [id number] Dea Perez 10/17/2017 2 [place] [facility] Dea Perez [id number] Dea Perez 10/17/2017 1 [facility] - DOS PRIOR TO 2020 (MEDICAID REPLACEMENT - HMO) Dea Ana [id number] Dea Ana 02/12/2018 1 [facility] - DOS PRIOR TO 2020 (MEDICAID REPLACEMENT - HMO) Dea Ana [id number] Dea Ana Notes Date Note Type Note Provider Name and Address Organization Details Recorded Time 09/04/2017 text/html Changing physicians due to insurance. Giovany Mcguire MD Attn: Accounting,[address] [place], [address], [facility] 09/04/2017 12:31:09 10/17/2017 text/html has seen urologist. Scheduled for bladder examination(Small lesion seen on cystoscopy). FBs averaging 140 mg/dl Giovany Mcguire MD Attn: Accounting,[address] [place], [address], [facility] - [facility] 10/17/2017 15:55:17 02/12/2018 text/html left cva tenderness , dysuria Albert Alexander PA-C Attn: Accounting,[address] [place], [address], [facility] - [facility] 02/12/2018 22:23:05 OBGyn Episode No OBEpisode recorded.
--- OUTSIDE RECORDS SUMMARY | 2024-10-23 09:30 | XMS_ITS ---
Author Organization [facility] Address [address] [place] [address] Care Team Providers Care Net Sorter Name Role Phone Eligio Shubham Unavailable [phone] Encounters Encounter Location Date Provider Diagnosis [facility] [address] [facility] [address] [place] [address] 07/17/2024 Shubham Del Valle Plan Of Treatment Next Appt Details Provider Name:Shubham Eligio , 01/01/2025 02:45:00 PM, [address] [facility], [facility], [place], [address], Progress Notes * MARCY BARKEROB:[birth year] (69 yo F)Acc No.[id number]:07/17/2024 Progress Notes Patient: BINA DESHPANDE Provider: Angela PATRICIA MD, Vince.Avery.C.P, F.A.S.N. :1955 A ge:68 Y S ex:Female Date:07/17/2024 Address:[address] [place] [address] Subjective: * Chief Complaints: * * Medical History: Objective: * Vitals: Assessment: Plan: * Treatment: * Billing Information: * Visit Code: * Procedure Codes: * Electronic signature of Mary Del Valle MD on 10/23/2024 at 09:30 AM CDT Sign off status: Pending * Provider: Angela PATRICIA MD, Vince.Avery.C.P, F.A.S.N. Date: 07/17/2024 Generated for Printing/Faxing/eTransmitting on: 10/23/2024 09:30 AM CDT
--- OUTSIDE RECORDS SUMMARY | 2024-10-23 09:30 | XMS_ITS | Clinical Summary ---
Author Organization [employer] Address [address] [facility] [place] [address] Care Team Providers Care Supervisor Plastering Name Role Phone Vanna Dave ROSALIE-SMALL BUSINESS CONSULTANT Primary Care Provider [phone] Source Comments [facility] [employer],non-owned Affiliates and Associated Physician Practices is amultiple site organization consisting of ambulatory clinics and hospital sitesin [place], [place], [place] and [place]. This disclosure is being madepursuant to the Care Everywhere program and may not contain all information available regarding this patient. Last updated 18.[employer] Allergies No known active allergies Medications * [...] vitamin D, ergocalciferol , (Drisdol) 1.25 MG (59947 UT) capsule Take 1 (one) capsule by [...] days 56 tablet 3 Active HYDROcodone-ac etaminophen (Vega) 5-325 MG tabletIndicati ons:Malignant neoplasm of posterior [...] Examples: Ensure Plant/Orgain 3 Active HYDROcodone-ac etaminophen (Vega) 5-325 MG tabletIndicati ons:Abscess,Ma lignant neoplasm of [...] and heating? Not hard at all 02/05/2023 [facility] - [...] place to sleep or slept in a fpc (including now)? No 02/05/2023 Comments No Sex and Gender Information Value Date Recorded Sex Assigned at Not on file Legal Sex Female 4:06 PM MEDICAL DIRECTOR Gender Identity Not on file Sexual Orientation [...] 4:49 AM CDT Height 157.5 cm (5' 2) 02/07/2023 7:54 AM CDT Body Mass Index [...] this topic Medical Devices Implanted Type Area Tools And Parts Attendant Device Identifier Shelf Expiration Date Model / Serial / Lot Stent Uret 7fr 26cm Sft Tria Implanted:Qty: 1 on 01/24/2023 by Silvano Rodríguez MD at [facility] [email or web address] [facility] 09/23/2024 [id number] / / [id number] Stent Uret 7fr 26cm Sft Tria Implanted:Qty: 1 on 01/24/2023 by Silvano Rodríguez MD at [facility] Left: [facility] [email or web address] [facility] 04/03/2025 [id number] / [id number] Insurance MEDICAID - OUT OF STATE UHC [...] 9:35 AM 11/06/2019 4:21 PM Care Teams Supervisor Plastering Relationship Specialty Start Date End Date Vanna Dave APRN-KIM [address] [phone] PCP - General 11/20/20
--- OUTSIDE RECORDS SUMMARY | 2024-10-23 09:30 | XMS_ITS | CONTINUITY OF CARE DOCUMENT ---
Author Name estevan barreto Address Unknown Organization [facility] Address [address] [place] [address] Phone [phone] Care Team Providers Care Liquid Hydrogen Plant Operator Name Role Phone Lesia HENRY, Carlos Alberto Mcelroy Unavailable TERENCE MARTINEZ MD Unavailable TERENCE MARTINEZ MD Unavailable PROBLEMS Condition Status Date Provider Notes Chest pain-type to be determined active Eddie Del Valle MD Tobacco abuse active Eddie Del Valle MD Hypercholesterolemia ldl 81, TG 105, HDL34 active Eddie Del Valle MD DM - type 2 aic 5.9 active Eddie Del Valle MD Atrial fib paroxysmal active Ascencion Graf MD HTN essential active Carlos Alberto de la rosa MD Cardiac murmur active Carlos Alberto bazzi MD Aortic valve sclerosis active Betina Graf MD CVA active Carlos Alberto stapleton MD Cardiac murmur active Carlos Alberto bazzi MD C V A / Stroke active Carlos Alberto bazzi MD (History of) COPD active Eddei Del Valle MD Bladder cancer active Eddie Del Valle MD Family History of Hypertension: completed - Carlos Alberto Graf MD HTN essential completed - Eddie Del Valle MD ENCOUNTERS Date Type Provider Location Encounter Diag nosis - In-person encounter Office Visit Carlos Alberto Graf MD [place] [facility] HTN essential - In-person encounter Office Visit Carlos Alberto Graf MD [place] [facility] Family History of Hypertension:Aortic valve sclerosisCardiac murmur - In-person encounter Office Visit Carlos Alberto Graf MD [place] [facility] C V A / StrokeCardiac murmurCVAAtrial fib paroxysmal - In-person encounter Office Visit Eddie Del Valle MD [facility] Office - In-person encounter Office Visit Eddie Del Valle MD [place] [facility] HTN essentialBladder cancerCOPD VITAL SIGNS Date Observation Value Provider Body Mass Index (Ratio) 20.66 kg/m2 Cheryl Graf MD blood pressure, diastolic 68 mm[Hg] Li nkLogic blood pressure, systolic 114 mm[Hg] Darlene kLogic blood pressure, cuff size regular Ja [facility] blood pressure, diastolic 68 mm[Hg] Ja [facility] blood pressure, systolic 114 mm[Hg] [facility] pulse rate 78 /min Jeet respiratory rate E&M 14 /min Jeet oxygen saturation, oximetry 97 % Jeet weight E&M 128 [lb_av] Jeet height E&M 66 [in_i] Jeet Body Mass Index (Ratio) 19.04 kg/m2 Cheryl Graf MD blood pressure, cuff size regular Ke rri Gruenenfelder blood pressure, diastolic 80 mm[Hg] Ke rri Gruenenfelder blood pressure, systolic 122 mm[Hg] Chelsy Hendricks oxygen saturation, oximetry 96 % Magui Hendricks respiratory rate E&M 12 /min Magui martinoelder pulse rate 93 /min Magui Morales er weight E&M 118 [lb_av] Magui Morales [facility] height E&M 66 [in_i] Magui Morales [facility] Body Mass Index (Ratio) 19.04 kg/m2 Maikel Santana blood pressure, diastolic 68 mm[Hg] Li nkLog blood pressure, systolic 107 mm[Hg] Darlene og blood pressure, cuff size regular [facility] blood pressure, diastolic 68 mm[Hg] [facility] blood pressure, systolic 107 mm[Hg] [facility] 79 /min [facility] oxygen saturation, oximetry 99 % [facility] respiratory rate E&M 16 /min Leta vásquez weight E&M 118 [lb_av] [facility] height E&M 66 [in_i] [facility] Body Mass Index (Ratio) 21.46 [...] Payer name Policy type / Coverage type [place] red republican ID [id number] COMPLETE CARE [id number] (PPO C-SNP) Commercial insurance company [id number] [employer]ILY [employer] Medicaid 0 [id number] ADVANCE DIRECTIVES Name Date DISCUSSED - NO DECISION MADE TREATMENT PLAN Date Name Performer [id number],SReal i [id number],SReal i [id number],SReal i [id number],SReal i [id number],SReal i Cardiology:Discussio n of benefits for remote [...] Cardiology Real [facility]iology eRal Gil Date Name BASIC METABOLIC PANE L W/EGFR RPM (remote patient monitoring) Stress Regadenoson 6 minute walk test Ambulatory Oxygen Ti tration Study Sleep Study Home DLCO - 07557 FRC - 01449 FVC - 30816 Carotid Duplex Bilat eral Complete Echo RPM (remote patient monitoring) Holter Monitor 48 hr Stress Exercise Card iolite Complete Echo HISTORY OF PROCEDURES Procedure Date Procedure Name Provider Procedure Notes S tatus EKG Carlos Alberto Graf MD compl eted EKG Carlos Alberto Graf MD compl eted EKG Eddie Del Valle MD completed
--- OUTSIDE RECORDS SUMMARY | 2024-10-23 09:30 | XMS_ITS | Encounter Summary ---
Author Organization [facility] , [facility] Address [address] [place] [phone] Phone Care Team Providers Care Fiberglass Machine Operator Name Role Phone Vanna Dave Primary Care Provider Unava ilable Reason for Visit * Reason Comments Med Refill Encounter Details Date Type Department Care Team (Late st Contact Info) Description 06/28/2021 Refill [place] [employer], [address] [address] [place]ão [place] [address] [place] [phone] Social History Tobacco Use Types Packs/Day [...] on filedocumented in this encounter Care Teams Fiberglass Machine Operator Relationship Specialty Start Date End Date Vanna Dave FNP-C PCP - General Nurse Practitioner 02/07/22 documented as of this encounter
[2024-10-23 10:36] LABS: Basophils Absolute Auto 0.1 K/mm3 (0.0-0.1); Basophils Percent Auto 0.9 % (0.2-1.2); Eosinophils Absolute Auto 0.3 K/mm3 (0-0.3); Eosinophils Percent Auto 2.8 % (0-4.4); Hematocrit 38.8 % (37.0-47.0); Immature Granulocyte Absolute 0.03 K/mm3 (0.00-0.031); Immature Granulocyte Percent A 0.3 % (0-0.5); Lymphocytes Absolute Auto 3.27 K/mm3 (0.9-3.2); Lymphocytes Percent Auto 31.3 % (18.3-44.2); Mean Corpuscular HGB Conc 30.9 g/dl (32-36); Mean Corpuscular Hemoglobin 29.3 pg (26-34); Mean Corpuscular Volume 94.9 fl (80-100); Mean Platelet Volume 9.7 fl (7.4-10.4); Monocytes Absolute Auto 0.7 K/mm3 (0.1-0.6); Monocytes Percent Auto 6.4 % (2.6-8.5); Neutrophils Absolute Auto 6.1 K/mm3 (1.3-6.7); Neutrophils Percent Auto 58.3 % (45.5-73.1); Platelet Count Result 469 k/mm3 (150-375); Red Blood Count 4.09 M/mm3 (4.2-5.4); Red Cell Distribution Width 15.8 % (11.5-14.5); White Blood Count 10.5 K/mm3 (4.5-10.0)
[2024-10-23 10:51] LABS: Iron 21 ug/dL (37-170)
[2024-10-23 10:56] LABS: Alanine Aminotransferase 17 U/L (6-35); Alkaline Phosphatase 94 U/L (38-126); Anion Gap 11 mmol/L (4-12); Aspartate Amino Transferase 22 U/L (14-36); Bilirubin,Total 0.4 mg/dL (0.2-1.3); Blood Urea Nitrogen 17 mg/dL (7-17); CRP 0.9 mg/dL (<1.0); Calcium 9.5 mg/dL (8.4-10.2); Carbon Dioxide 18 mmol/L (22-30); Chloride 113 mmol/L (98-107); Estimated Glomerular Filt Rate 58; Glucose 110 mg/dL (65-110); Potassium 4.6 mmol/L (3.4-5.0); Sodium 142 mmol/L (137-145); Total Protein 7.2 g/dL (6.3-8.2)
[2024-10-23 11:02] LABS: Percent Iron Saturation 7 % (20-50)
[2024-10-23 11:10] LABS: Erythrocyte Sedimentation Rate 18 mm/hr (0-20)
== END 2024-10-23 09:22 | disposition home or self-care (01) ==
PROVIDERS: PCP Internal Medicine; Visit Provider Internal Medicine Hematology & Oncology
DX: D47.3 Essential (hemorrhagic) thrombocythemia (principal)
CPT/HCPCS: 36415; 80053; 81270; 82728; 83540; 83550; 85025; 85652; 86140

== ENCOUNTER 2024-10-31 10:01 | Outpatient (CLI) | payer MEDICARE, MEDICAID, SELFPAY ==
--- OUTSIDE RECORDS SUMMARY | 2024-10-31 10:52 | XMS_ITS ---
Author Organization [facility] Address [address] [facility] [address] [facility] [address] [place] [address] Care Team Providers Care Sales And Marketing Agent Name Role Phone Eligio Shubham Unavailable [phone] Medications Medication SIG (Take, Route, Fr equency, Duration) Notes Start Date End Date Status Calcitriol 0.25 MCG TAKE 1 CAPSULE BY MO UTH EVERY DAY FOR 90 DAYS for 90 Active Jardiance 10 MG TAKE 1 TABLET BY REESE TH EVERY DAY for 90 Active Problems Problem Type SNOMED Code ICD Code Onset Dates Problem Status W/U Status Risk Notes Problem Tobacco use (279221827) Tobacco use (Z72.0) Active confirmed Problem Hypo-osmolality and or hyponatremia (532832871) Hypo-osmolality and hyponatremia (E87.1) Active confirmed Problem Hyperkalemia (11586790) Hyperkalemia (E87.5) Active confirmed Encounters Encounter Location Date Provider Diagnosis [place] [facility] [address] [facility] 15 [place] [address] 09/25/2024 Shubham Del Valle Chronic kidney disea [...] Name:Shubham Eligio , 01/01/2025 02:45:00 PM, [address] [facility] [address], [place], [place], [facility], Progress Notes * MARCY BARKEROB:[birth year] (69 yo F)Acc No.[id number]:09/25/2024 Progress Notes Patient: BINA DESHPANDE Provider: Angela PATRICIA MD, F.A.C.P, F.A.S.N. :1955 A ge:69 Y S ex:Female Date:09/25/2024 Address:[address] [place] [address] Subjective: * Chief Complaints: * * Medical [...] Treatment: * Billing Information: * Visit Code: 15750 Office Visit, Est Pt., Level 4. * Procedure Codes: * Electronic signature of Mary Del Valle MD on 10/31/2024 at 10:52 AM CDT Sign off status: Pending * Provider: Angela PATRICIA MD, F.A.C.P, F.A.S.N. Date: 0 09/25/2024 Generated for Printing/Faxing/eTransmitting on: 0 10/31/2024 10:52 AM CDT
--- OUTSIDE RECORDS SUMMARY | 2024-10-31 10:52 | XMS_ITS | Encounter Summary ---
Author Organization [facility] , [facility] Address [address] [facility] [place] [address] Phone Care Team Providers Care Lead Atg Developer Name Role Phone Vanna Dave Primary Care Provider Unava ilable Reason for Visit * Reason Comments Med Refill Encounter Details Date Type Department Care Team (Late st Contact Info) Description 08/30/2023 Refill [place] [employer] [facility], [facility] [address] [facility] 15 [place] [address] João De Leon, [address] [facility] 1 [place] [address] Social History Tobacco Use Types [...] on filedocumented in this encounter Care Teams Lead Atg Developer Relationship Specialty Start Date End Date Vanna Dave FNP-C PCP - General Nurse Practitioner 02/07/22 documented as of this encounter
--- OUTSIDE RECORDS SUMMARY | 2024-10-31 10:52 | XMS_ITS ---
Author Organization [facility] Address [address] [facility] [address] [facility] [address] [place] [address] Care Team Providers Care Technical Support Internship Name Role Phone Eligio Shubham Unavailable [phone] Encounters Encounter Location Date Provider Diagnosis [place] [facility] [address] [facility] [place] [address] [place] [address] 07/19/2024 Shubahm Del Valle Plan Of Treatment Next Appt Details Provider Name:Shubham Eligio , 01/01/2025 02:45:00 PM, [address] [facility], [facility] 15, [place], [address], Progress Notes * MARCY BARKEROB:[birth year] (69 yo F)Acc No.[id number]:07/19/2024 Progress Notes Patient: BINA DESHPANDE Provider: Angela PATRICIA MD, Vince.Avery.C.P, F.A.S.N. :1955 A ge:68 Y S ex:Female Date:07/19/2024 Address:[address] [place] [address] Subjective: * Chief Complaints: * * Medical History: Objective: * Vitals: Assessment: Plan: * Treatment: * Billing Information: * Visit Code: * Procedure Codes: * Electronic signature of Mary Del Valle MD on 10/31/2024 at 10:52 AM CDT Sign off status: Pending * Provider: Angela PATRICIA MD, Vince.Avery.C.P, F.A.S.N. Date: 07/19/2024 Generated for Printing/Faxing/eTransmitting on: 10/31/2024 10:52 AM CDT
--- OUTSIDE RECORDS SUMMARY | 2024-10-31 10:52 | XMS_ITS | Clinical Summary ---
Author Organization [facility] Panfilo riggins Shai Address [address] [place] [address] Care Team Providers Care Ward Maid Name Role Phone Clara Barber MD Primary [...] Encounters Date Type Department Care Team Description 10/23/2024 Orders Only [facility] Oncology and Hematology - [place] [address] [place] [address] Tommie Williamson MD 10/15/2024 External Device Data [facility] ABSTRACTION Provider, Abstract 10/09/2024 External Device Data [place] Provider, Abstract 10/08/2024 External Device Data [place]STRA[place] Provider, Abstract 09/20/2024 Abstract [facility] Oncology and Hematology - [place] [address] [place] [address] Tommie Williamson MD 09/20/2024 Abstract [facility] Oncology and Hematology [facility] [address] [place] [address] Tommie Wliliamson MD 08/07/2024 External Device Data [facility] ABSTRACTION [...] Date Smoking Tobacco: Every Day Cigarettes 1 51 Started: 11/14/1973 Smokeless Tobacco: Never Tobacco Cessation:Ready [...] Description 11/04/2024 2:30 PM CDT Office Visit [facility] Oncology and Hematology - [place] [address] [place] [address] Tommie Williamson MD [address] [facility] [address] [place] [address] Health Maintenance Due Date Last [...] 2024 04/27/2022, 05/08/2021, 08/19/2020, Additional history exists PNEUMOCOCCAL VACCINE 50+ YEARS Completed 05/06/2022 INFLUENZA VACCINE Completed 02/15/2024, , 04/27/2022, Additional history exists Procedures Procedure Name Priority Date/Time Associated Diagnosis Comments CBC WITH DIFFERENTIAL Routine 10/23/2024 3:23 PM CDT from Last 3 Months Results * CBC WITH DIFFERENTIAL (10/23/2024 3:23 PM CDT) Blood us Tommie Williamson MD HEMATOLOGY ORDERABLES Final Res ult from Last 3 Months Insurance [facility] [id number] MEDICAID [place] Care Teams Ward Maid Relationship Specialty Start Date End Date Clara Barber MD PCP - General Internal Medicine 11/01/23
--- OUTSIDE RECORDS SUMMARY | 2024-10-31 10:52 | XMS_ITS ---
Author Organization [facility] Address [address] [place] [address] Care Team Providers Care Power Project Manager Name Role Phone Eligio Shubham Unavailable [phone] Encounters Encounter Location Date Provider Diagnosis [place] [facility] [address] [facility] 15 [place] [address] 12/27/2023 Shubham Del Valle Chronic kidney disease, [...] * Pasha BARKEROB:[birth year] (69 yo M)Acc No.[id number]:12/27/2023 Progress Notes Patient: Dea DESHPANDE Provider: Angela PATRICIA MD, F.A.C.P, F.A.S.N. :1955 A ge:68 Y S ex:Male Date:12/27/2023 Address:[address] [place], [place] [id number] Subjective: * Chief Complaints: * * Medical History: Objective: * Vitals: Assessment: * Assessment: 1. C hronic kidney disease, stage 3a - N18.31 (Primary) 2 . E ssential hypertension - I10 3 . O ther proteinuria - R80.8 4 . E toby, unspecified - R60.9 5 . A nxiety disorder, unspecified - F41.9 Plan: * Treatment: * Billing Information: * Visit Code: 48660 Office Visit, Est Pt., Level 4. * Procedure Codes: * Electronic signature of Mary Del Valle MD on 10/31/2024 at 10:52 AM CDT Sign off status: Pending * Provider: Angela PATRICIA MD, F.A.C.P, F.A.S.N. Date: 0 12/27/2023 Generated for Printing/Faxing/eTransmitting on: 0 10/31/2024 10:52 AM CDT
--- OUTSIDE RECORDS SUMMARY | 2024-10-31 10:52 | XMS_ITS ---
Author Organization [facility] Address [address] [place] [address] Care Team Providers Care Boning Room Worker Name Role Phone Shubham Del Valle Unavailable [phone] Problems Problem Type SNOMED Code ICD Code Onset Dates Problem Status W/U Status Risk Notes Problem Chronic kidney disease stage 3A (disorder) (539027836) Chronic kidney disease, stage 3a (N18.31) Active confirmed Problem Edema (71022036) Edema, unspecified (R60.9) Active confirmed Problem Essential hypertension (34243561) Essential hypertension (I10) Active confirmed Problem Anxiety disorder (011952839) Anxiety disorder, unspecified (F41.9) Active confirmed Problem Proteinuria (53758728) Other proteinuria (R80.8) Active confirmed Encounters Encounter Location Date Provider Diagnosis [place] [facility] [address] [address] 08/11/2023 Shubham Del Valle Chronic kidney disease, [...] * Pasha BARKEROB:[birth year] (69 yo M)Acc No.[id number]:08/11/2023 Progress Notes Patient: Dea DESHPANDE Provider: Angela PATRICIA MD, VernellP, F.A.S.N. :1955 A ge:67 Y S ex:Male Date:08/11/2023 Address:[address] [place], [place] [id number] Subjective: * Chief Complaints: * * Medical History: Objective: * Vitals: Assessment: * Assessment: 1. C hronic kidney disease, stage 3a - N18.31 2 . E toby, unspecified - R60.9 3 . E ssential hypertension - I10 4 . A nxiety disorder, unspecified - F41.9 5 . O ther proteinuria - R80.8 Plan: * Treatment: * Billing Information: * Visit Code: 18764 Office Visit, New Pt., Level 5. * Procedure Codes: * Electronic signature of Mary Del Valle MD on 10/31/2024 at 10:51 AM CDT Sign off status: Pending * Provider: Angela PATRICIA MD, Vince.Avery.AshleyP, F.A.S.N. Date: 0 08/11/2023 Generated for Printing/Faxing/eTransmitting on: 0 10/31/2024 10:51 AM CDT
--- OUTSIDE RECORDS SUMMARY | 2024-10-31 10:53 | XMS_ITS | Data Portability ---
Author Organization [facility] TAYMary Ann [facility] Address [address] [place] [address] Assessment No assessment recorded. Plan of Treatment Reminders Order Date Submit Date Provider Last Modified By Organization Details Last Modified Time Details Appointments None recorded. Lab culture, urine 2017 018 CHITO MIK, [address] [place] [address], [address], [place], [address], 8 15:15:41 HbA1c (hemoglobi n A1c), blood 2017 018 CHITO MIK, [address] [place] [address], [address], [place], [address], 8 13:11:53 CMP, serum or plasma 2017 018 CHITO MIK, [address] [place] [address], [address], [place], [address], 8 13:11:52 lipid panel, serum 2017 018 CHITO [facility], [address] [place] [address], [address], [place], [address], 8 13:11:53 microalbum in, urine 2017 018 CHITO MIK, [address] [place] [address], [address], [place], [address], 8 13:11:54 TSH + free T4, serum 2017 018 [facility]O [facility], [address], [address], [place], [address], 8 13:11:52 Referral diabetic ophthalmol ogy referral - Please call patient to schedule appt. Thank you 2017 018 [email or web address] Jamey Dewitt MD, [address], [place], [address], 8 17:02:12 urologist referral - Please call patient to schedule appt. Thank you 2017 018 [email or web address] Not available 8 10:38:52 Procedures None recorded. Surgeries None recorded. Imaging LDCT, chest, for lung cancer screening 2017 018 [facility] ([facility]), [address] [facility], [place], [address], 8 15:52:43 Medication Orders phenazopyr idine 200 mg tablet 2017 018 [email or web address] [id number], [address], [place], [address], 8 16:12:34 ciprofloxa ginny 500 mg tablet 2017 018 [email or web address] [id number], [address], [place], [address], 8 16:12:34 Chantix Starting Month Box 0.5 mg (11)-1 mg (42) tablets in dose pack 2017 018 [email or web address] Not available 8 16:12:34 Blood Glucose Test strips 2017 018 INTERFACE [id number], [address], [place], [address], 8 16:13:29 metformin 500 mg tablet 2017 018 INTERFACE [id number], [address], [place], [address], 8 12:21:37 alcohol swabs 2017 018 INTERFACE [id number], [address], [place], [address], 8 12:21:36 atorvastat in 10 mg tablet 2017 018 INTERFACE [id number], [address], [place], [address], 8 12:21:36 Patient TargetsNo targets recorded. Patient [...] uIU/m L 0.450- 4.500 Not Available [facility] ([facility]) [address] [place], [address], 09/06/2017 13:11:52 09/06/19 18 09/06/2017 TSH + free T4, serum T4,free(dire ct) 1.00 NG/dL 0.82-1 .77 Not Available [facility] ([facility]) [address] [place], [address], 09/06/2017 13:11:52 09/06/19 18 09/06/2017 CMP, serum or plasm a glucose 161 mg/dL 65-99 above high normal Not Available [facility] ([facility]) [address] [facility], [place], [address], 09/06/2017 13:11:52 09/06/19 18 09/06/2017 CMP, serum or plasm a BUN 11 mg/dL 8-27 Not Available [facility] ([facility]) [address] [place], [address], 09/06/2017 13:11:52 09/06/19 18 09/06/2017 CMP, serum or plasm a creatinine 0.73 mg/dL 0.57-1 .00 Not Available [facility] ([facility]) [address] [facility], [place], [address], 09/06/2017 13:11:52 09/06/19 18 09/06/2017 CMP, serum or plasm a eGFR if nonafricn AM 89 mL/mi n/1.7 3 >59 Not Available [facility] ([facility]) [address] [facility], [place], [address], 09/06/2017 13:11:52 09/06/19 18 09/06/2017 CMP, serum or plasm a eGFR if africn AM 102 mL/mi n/1.7 3 >59 Not Available [facility] ([facility]) [address] [facility], [place], [address], 09/06/2017 13:11:52 09/06/19 18 09/06/2017 CMP, serum or plasm a BUN/creatini ne ratio 15 12-28 Not Available [facility] ([facility]) [address] [place], [address], 09/06/2017 13:11:52 09/06/19 18 09/06/2017 CMP, serum or plasm a sodium 141 mmol/ L 134-14 4 Not Available [facility] ([facility]) [address] [place], [address], 09/06/2017 13:11:52 09/06/19 18 09/06/2017 CMP, serum or plasm a potassium 4.7 mmol/ L 3.5-5. 2 Not Available [facility] ([facility]) [address] [place], [address], 09/06/2017 13:11:52 09/06/19 18 09/06/2017 CMP, serum or plasm a chloride 104 mmol/ L 96-106 Not Available [facility] ([facility]) [address] [place], [address], 09/06/2017 13:11:52 09/06/19 18 09/06/2017 CMP, serum or plasm a carbon dioxide, total 20 mmol/ L 18-29 Not Available [facility] ([facility]) [address] [place], [address], 09/06/2017 13:11:52 09/06/19 18 09/06/2017 CMP, serum or plasm a calcium 9.9 mg/dL 8.7-10 .3 Not Available [facility] ([facility]) [address] [place], [address], 09/06/2017 13:11:52 09/06/19 18 09/06/2017 CMP, serum or plasm a protein, total 7.3 g/dL 6.0-8. 5 Not Available [facility] ([facility]) [address] [place], [address], 09/06/2017 13:11:52 09/06/19 18 09/06/2017 CMP, serum or plasm a albumin 4.5 g/dL 3.6-4. 8 Not Available [facility] ([facility]) [address] [place], [address], 09/06/2017 13:11:52 09/06/19 18 09/06/2017 CMP, serum or plasm a globulin, total 2.8 g/dL 1.5-4. 5 Not Available [facility] ([facility]) [address] [place], [address], 09/06/2017 13:11:52 09/06/19 18 09/06/2017 CMP, serum or plasm a A/G ratio 1.6 1.2-2. 2 Not Available [facility] ([facility]) [address] [facility] [place], [address], 09/06/2017 13:11:52 09/06/19 18 09/06/2017 CMP, serum or plasm a bilirubin, total 0.2 mg/dL 0.0-1. 2 Not Available [facility] ([facility]) [address] [facility] [place], [address], 09/06/2017 13:11:52 09/06/19 18 09/06/2017 CMP, serum or plasm a alkaline phosphatase 102 IU/L 39-117 Not Available [facility] ([facility]) [address] [place], [address], 09/06/2017 13:11:52 09/06/19 18 09/06/2017 CMP, serum or plasm a AST (SGOT) 14 IU/L 0-40 Not Available [facility] ([facility]) [address] [facility] [place], [address], 09/06/2017 13:11:52 09/06/19 18 09/06/2017 CMP, serum or plasm a ALT (SGPT) 17 IU/L 0-32 Not Available [facility] ([facility]) [address] [place], [address], 09/06/2017 13:11:52 09/06/19 18 09/06/2017 lipid panel , serum cholesterol, total 251 mg/dL 100-19 9 above high normal Not Available [facility] ([facility]) [address] [facility] [place], [address], 09/06/2017 13:11:53 09/06/19 18 09/06/2017 lipid panel , serum triglyceride s 334 mg/dL 0-149 above high normal Not Available [facility] ([facility]) [address] [place], [address], 09/06/2017 13:11:53 09/06/19 18 09/06/2017 lipid panel , serum HDL cholesterol 27 mg/dL >39 below low normal Not Available [facility] ([facility]) [address] [place], [address], 09/06/2017 13:11:53 09/06/19 18 09/06/2017 lipid panel , serum VLDL cholesterol marian 67 mg/dL 5-40 above high normal Not Available [facility] ([facility]) [address] [place], [address], 09/06/2017 13:11:53 09/06/19 18 09/06/2017 lipid panel , serum LDL cholesterol calc 157 mg/dL 0-99 above high normal Not Available [facility] ([facility]) [address] [place], [address], 09/06/2017 13:11:53 09/06/19 18 09/06/2017 lipid panel , serum comment: PODIATRIC ASSISTANT Not Available [facility] ([facility]) [address] [place], [address], 09/06/2017 13:11:53 09/06/19 18 09/06/2017 lipid panel , serum LDL/HDL ratio 5.8 ratio 0.0-3. 2 above high normal LDL/H DL Ratio Men Women 1/2 Avg.R isk 1.0 1.5 Avg.R isk 3.6 3.2 2X Avg.R isk 6.2 5.0 3X Avg.R isk 8.0 6.1 Not Available [facility] ([facility]) [address] [place], [address], 09/06/2017 13:11:53 09/06/19 18 09/06/2017 HbA1c (hemo globi n A1c), blood hemoglobin A1C 7.3 % 4.8-5. 6 above high normal Pre-d iabet es: 5.7 - 6.4 Diabe dick: >6.4 Glyce escobar contr ol for adult s with diabe dick: <7.0 Not Available [facility] ([facility]) [address] [facility], [place], [address], 09/06/2017 13:11:53 09/06/19 18 09/06/2017 micro album in, urine albumin, urine 17.0 ug/mL not estab. Not Available [facility] ([facility]) [address] [facility], [place], [address], 09/06/2017 13:11:54 09/06/19 18 09/06/2017 diabe dick patie nt educa tion pdf image . Not Available [facility] ([facility]) [address] [facility], [place], [address], 09/06/2017 13:11:54 02/13/20 18 02/16/2018 cultu re, urine urine culture,comp rehensive Final report abnormal Not Available [facility] ([facility]) [address] [facility], [place], [address], 02/16/2018 15:15:41 02/13/20 18 02/16/2018 cultu re, [...] Imipe nem, Merop enem Not Available [facility] ([facility]) [address] [facility], [place], [address], 02/16/2018 15:15:41 02/13/20 18 02/16/2018 cultu re, [...] R Vanco mycin S Not Available [facility] ([facility]) [address] [facility], [place], [address], 02/16/2018 15:15:41 09/30/19 18 09/29/2017 LDCT, chest , for lung cance r scree brennon No observ ation record ed. [address] ([facility] Sched[facility]) [address] [place], [address], 10/17/2017 15:52:44 12/01/19 18 11/30/2017 CT, abdom en + pelvi s, w/wo contr ast No observ ation record ed. [address] (Imaging) [address] [place], [address], 12/13/2017 23:45:03 Result Notes None recorded. Problems Name Problem SNOMED Code Status Onset Date Resolution Date Notes Provider Name and Address Organization Details Recorded Time Type 2 diabetes mellitus 33535329 Active 2017 Giovany Mcguire MD Attn: Denysvika yun,[address] [facility], [place], [address], [place] - [facility] 8 12:04:04 Hyperlipide ritchie 70602345 Active 2017 Giovany Mcguire MD Attn: Denysvika yun,[address] [facility], [place], [address], [place] [facility] 8 12:05:02 History of malignant neoplasm of bladder 521266187 Active 2017 Giovany Mcguire MD Attn: Adelaida yun,[address] [facility], [place], [address], [place] [facility] 8 12:05:38 Tobacco user 257980059 Active 2017 Giovany Mcguire MD Attn: Adelaida yun,[address] [facility], [place], [address], [place] [facility] 8 12:06:02 Former heavy tobacco smoker 4887258587383 00 Active 2017 Giovany Mcguire MD Attn: Adelaida yun,[address] [facility], [place], [address], [place] [facility] 8 16:04:30 Steatotic liver disease 724230644 Active 2017 Giovany Mcguire MD Attn: Adelaida yun,[address] [facility], [place], [address], [place] [facility] 8 15:53:44 Dysuria 78845466 Active 2017 Albert Alexander PA-C Attn: Adelaida g,[address] [facility], [place], [address], [place] [facility] 8 16:06:20 Acute urinary tract infection 628492196 Active 2017 Albert Alexander PA-C Attn: Adelaida yun,[address], [place], [address], [facility] - [facility] 8 17:24:44 Problem Notes None recorded. Procedures Surgical History Date Name Laterality Status Provider Name and Address Organization Details Recorded Time Total hysterectomy completed Kalani Crowley MA [place] - [facility] 09/04/2017 11:17:28 Imaging Results None [...] Updated DateTime 8 167.64 cm 24.1 kg/m2 84323.7 g 98 [degF] 76 /min 97 % 97 % 118 mm[Hg] 78 mm[Hg] Kalani Crowley [place] [facility] 8 11:21:51 Date Recorded Body height Body mass index (BMI) Body weight Body temperature Oxygen saturation Oxygen saturation in Arterial blood by Pulse oximetry Heart rate Systolic blood pressure Diastolic blood pressure Provider Name and Address Organization Details Last Updated DateTime 8 167.64 cm 23.6 kg/m2 76919.4 9 g 98.1 [degF] 96 % 96 % 88 /min 110 mm[Hg] 74 mm[Hg] Kalani Crowley MA [facility] 8 15:32:54 Date Recorded Body height Body mass index (BMI) Body weight Oxygen saturation Oxygen saturation in Arterial blood by Pulse oximetry Heart rate Body temperature Systolic blood pressure Diastolic blood pressure Provider Name and Address Organization Details Last Updated DateTime 8 167.64 cm 24.2 kg/m2 33356.8 6 g 96 % 96 % 91 /min 97.9 [degF] 124 mm[Hg] 68 mm[Hg] Gris Rose MA [facility] 8 15:51:32 Social History Question Answer Notes LastModified by Organizat ion Details LastModified Time Tobacco Smoking Status Current Every Day Smoker Kalani Crowley MA [facility] 09/04/2017 11:17:00 What Was The Date Of [...] SNOMED-CT Code Diagnosis ICD10 Code Diagnosis Note [id number] MD Flip Red (Adult Med) [address] [place] [address] 09/04/2017 10:50:53 09/04/2017 12:32:16 Type 2 diabetes mellitus 07733785 E11.9 BS seem OK off meds x 3 mths. Restart with metformin alone. Pt to call with FBS in 2 weeks Hyperlipidemia 39258616 E78.5 History of malignant neoplasm of bladder 656750890 Z85.51 Tobacco user 770986251 Z 72.0 [id number] Giovany Mcguire MD [facility] (Adult Med) [address] [place] [address] 10/17/2017 14:52:16 10/17/2017 16:00:58 Type 2 diabetes mellitus 38239183 E11.9 BS seem OK off meds x 3 mths. Restart with metformin alone. Pt to call with FBS in 2 weeks Hyperlipidemia 83905669 E78.5 History of malignant neoplasm of bladder 850895716 Z85.51 [id number] [facility] [address] [place] [address] 02/12/2018 15:28:09 02/12/2018 16:16:50 Dysuria 31657943 R30.0 Tobacco user 985528072 Z 72.0 Type 2 natan betes mellitus 50935324 E11.9 Health Concerns Section Related Observation LastModified by Organization Detai ls LastModified Time None Recorded Concern Status LastModified by Organization Details LastModified Time None Recorded Advance Directives Directive None Recorded Payers Insurance Date Sequence Insurance Name Policy Number Policy Terry Covered Member ID Terry Member ID Guarantor Name 04/08/2018 1 [facility] - DOS PRIOR TO 2020 (MEDICAID REPLACEMENT - HMO) Dea Perez [id number] Dea Perez 01/12/2018 2 [place] [employer] Dea Perez [id number] Dea Perez Notes Date Note Type Note Provider Name and Address Organization Details Recorded Time 09/04/2017 text/html Changing physicians due to insurance. Giovany Mcguire MD Attn: Accounting,[address] [place], [address], [facility] 09/04/2017 12:31:09 10/17/2017 text/html has seen urologist. Scheduled for bladder examination(Small lesion seen on cystoscopy). FBs averaging 140 mg/dl Giovany Mcguire MD Attn: Accounting,[address] [place], [address], [facility] 10/17/2017 15:55:17 02/12/2018 text/html left cva tenderness , dysuria Albert Alexander PA-C Attn: Accounting,[address] [place], [address], [facility] 02/12/2018 22:23:05 OBGyn Episode No OBEpisode recorded.
--- OUTSIDE RECORDS SUMMARY | 2024-10-31 10:53 | XMS_ITS ---
Author Organization [facility] Address [address] [facility] [address] Care Team Providers Care Radioactive Waste Disposal Dispatcher Name Role Phone Tenzin Vanna WIGGINS-AGRICULTURAL EQUIPMENT MECHANIC Primary Care Provider [phone] Active Problems Problem Noted Date Diagnosed Date [...]
--- OUTSIDE RECORDS SUMMARY | 2024-10-31 10:53 | XMS_ITS | Clinical Summary ---
Author Organization [facility] Facility Address [address] [place] [address] Care Team Providers Care Research Quality Assurance Analyst Name Role Phone TenzinVanna PRIMARY CARE NURSE PRACTITIONER-C Primary Care Provider Unabrandy ilable Medications atorvastatin [...] Comments Blood Pressure 126/62 06/07/2022 2:57 PM BROADCAST METEOROLOGIST Pulse 68 06/07/2022 2:57 PM BROADCAST METEOROLOGIST Temperature 36.3 C (97.4 F) 06/07/2022 2:57 PM BROADCAST METEOROLOGIST Respiratory Rate 18 06/07/2022 2:57 PM BROADCAST METEOROLOGIST Oxygen Saturation 99% 06/07/2022 2:57 PM BROADCAST METEOROLOGIST Inhaled Oxygen Concentration - - Weight 70.8 kg (156 lb) 02/25/2020 12:00 PM CDT Height 167.6 cm (5' 6) 06/07/2022 2:57 PM BROADCAST METEOROLOGIST Body Mass Index 25.18 02/25/2020 12:00 PM [...] history exists Insurance Medicaid [place] Care Teams Research Quality Assurance Analyst Relationship Specialty Start Date End Date Vanna Dave FNP-C PCP - General Nurse Practitioner 02/07/22
--- OUTSIDE RECORDS SUMMARY | 2024-10-31 10:53 | XMS_ITS | Patient Health Record ---
Author Organization [facility] Address [address] [facility] [address] [facility] [address] [place] [address] Care Team Providers Care Egg Trayer Name Role Phone Shubham Del Valle Unavailable [phone] Reason For Referral No Information Medications Medication SIG (Take, Route, Frequency, Duration) Notes Start Date End Date Status Ergocalciferol 1.25 MG (31624 UT) 1 capsule Orally Once a week for 90 day(s) 09/20/2023 06/22/2025 Active Calcitriol 0.25 MCG TAKE 1 CAPSULE BY MO UTH EVERY DAY FOR 90 DAYS for 90 Active Jardiance 10 MG TAKE 1 TABLET BY REESE TH EVERY DAY for 90 Active Problems Problem Type SNOMED Code ICD Code Onset Dates Problem Status W/U Status Risk Notes Problem Secondary hyperparathyroidi sm, not elsewhere classified (E21.1) Active confirmed Problem Vitamin D deficiency (66114227) Vitamin D deficiency, unspecified (E55.9) Active confirmed Problem Hypo-osmolality and or hyponatremia (317975496) Hypo-osmolality and hyponatremia (E87.1) Active confirmed Problem Hyperkalemia (02777180) Hyperkalemia (E87.5) Active confirmed Problem Essential hypertension (78528374) Essential (primary) hypertension (I10) Active confirmed Problem Renal osteodystrophy (23819847) Renal osteodystrophy (N25.0) Active confirmed Problem Edema (23831489) Edema, unspecified (R60.9) Active confirmed Problem Tobacco use (719231239) Tobacco use (Z72.0) Active confirmed Problem Type II diabetes mellitus without complication (012188377) Type 2 diabetes mellitus without complications (E11.9) Active confirmed Problem Chronic kidney disease stage 3 (disorder) (185636249) Chronic kidney disease, stage 3 unspecified (N18.30) Active confirmed Encounters Encounter Location Date Provider Diagnosis [facility] [address] [facility] [address] [place] [address] 02/07/2024 Shubham Del Valle Chronic kidney disea se, stage 2 (mild) N18.2 ; Hyperkalemia E87.5 ; Essential (primary) hypertension I10 ; Edema, unspecified R60.9 ; Renal osteodystrophy N25.0 ; Secondary hyperparathyroidism, not elsewhere classified E21.1 and Vitamin D deficiency, unspecified E55.9 [facility] [place] [facility] [address] [place] [address] 05/08/2024 Shubham Del Valle Stage 3 chronic kidn ey disease N18.30 ; Type 2 diabetes mellitus without complications E11.9 ; Hypo-osmolality and hyponatremia E87.1 and Vitamin D deficiency, unspecified E55.9 [facility] [address] [place] [address] 09/25/2024 Shubham Del Valle Chronic kidney disea se, stage 3 unspecified N18.30 ; Essential (primary) hypertension I10 ; Edema, unspecified R60.9 ; Renal osteodystrophy N25.0 ; Secondary hyperparathyroidism, not elsewhere classified E21.1 ; Vitamin D deficiency, unspecified E55.9 ; Type 2 diabetes mellitus without complications E11.9 ; Tobacco use Z72.0 ; Hypo-osmolality and hyponatremia E87.1 and Hyperkalemia E87.5 [facility] [address] [place] [address] 09/25/2024 Shubham Del Valle Assessments Encounter Date [...] Del Valle , 01/01/2025 02:45:00 PM, [address] [facility], [facility] [address], [address],
--- OUTSIDE RECORDS SUMMARY | 2024-10-31 10:53 | XMS_ITS | Encounter Summary ---
Author Organization [employer] , [facility] Address [address] [place] [phone] Phone Care Team Providers Care Metal Hanging Supervisor Name Role Phone Vanna Dave Primary Care Provider Unava ilable Reason for Visit * Reason Comments Med Refill Encounter Details Date Type Department Care Team (Late st Contact Info) Description 06/28/2021 Refill [employer] [facility], [address] [address] Jo[place] [address] [place] [phone] Social History Tobacco Use Types Packs/Day [...] on filedocumented in this encounter Care Teams Metal Hanging Supervisor Relationship Specialty Start Date End Date Vanna Dave FNP-C PCP - General Nurse Practitioner 02/07/22 documented as of this encounter
--- OUTSIDE RECORDS SUMMARY | 2024-10-31 10:53 | XMS_ITS | Encounter Summary ---
Author Organization [employer] , [facility] Address [address] [place] [phone] Phone Care Team Providers Care Linux Devops Engineer Name Role Phone Vanna Dave Primary Care Provider Unava ilable Reason for Visit * Reason Comments Med Refill Encounter Details Date Type Department Care Team (Late st Contact Info) Description 07/31/2021 Refill [place] [facility], [address] [address] João [place] [address] [place] [phone] Social History Tobacco Use Types Packs/Day [...] on filedocumented in this encounter Care Teams Linux Devops Engineer Relationship Specialty Start Date End Date Vanna Dave FNP-C PCP - General Nurse Practitioner 02/07/22 documented as of this encounter
--- OUTSIDE RECORDS SUMMARY | 2024-10-31 10:53 | XMS_ITS | Encounter Summary ---
Author Organization [employer] , [facility] Address [address] [place] [phone] Phone Care Team Providers Care Rn Examiner Name Role Phone Vanna Dave Primary Care Provider Unava ilable Reason for Visit * Reason Comments Med Refill Encounter Details Date Type Department Care Team (Late st Contact Info) Description 09/02/2021 Refill [place] [facility], [address] [address] João [place] [address] [place] [phone] Social History Tobacco Use Types Packs/Day [...] on filedocumented in this encounter Care Teams Rn Examiner Relationship Specialty Start Date End Date Vanna Dave FNP-C PCP - General Nurse Practitioner 02/07/22 documented as of this encounter
--- OUTSIDE RECORDS SUMMARY | 2024-10-31 10:53 | XMS_ITS | Clinical Summary ---
Author Organization [employer] Address [address] [place] [address] Care Team Providers Care Laborer Shaft Sinking Name Role Phone Vanna Dave ROSALIE-AREA SAFETY MANAGER Primary Care Provider [phone] Source Comments [facility] [employer],non-owned Affiliates and Associated Physician Practices is amultiple site organization consisting of ambulatory clinics and hospital sitesin [place], [place], [place] and [place]. This disclosure is being madepursuant to the Care Everywhere program and may not contain all information available regarding this patient. Last updated 18.[employer] Allergies No known active allergies Medications * [...] vitamin D, ergocalciferol , (Drisdol) 1.25 MG (32836 UT) capsule Take 1 (one) capsule by [...] days 56 tablet 3 Active HYDROcodone-ac etaminophen ([place]) 5-325 MG tabletIndicati ons:Malignant neoplasm of posterior [...] Examples: Ensure Plant/Orgain 3 Active HYDROcodone-ac etaminophen ([place]) 5-325 MG tabletIndicati ons:Abscess,Ma lignant neoplasm of [...] and heating? Not hard at all 02/05/2023 [facility] - Occupational [...] place to sleep or slept in a jail (including now)? 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 Gender Identity Not on file Sexual Orientation [...] this topic Medical Devices Implanted Type Area Glass Cutting Machine Operator Device Identifier Shelf Expiration Date Model / Serial / Lot Stent Uret 7fr 26cm Sft Tria Implanted:Qty: 1 on 01/24/2023 by Silvano Rodríguez MD at [facility] 09/23/2024 [id number] / / [id number] Stent Uret 7fr 26cm Sft Tria Implanted:Qty: 1 on 01/24/2023 by Silvano Rodríguez MD at [facility] Left: [facility] 04/03/2025 [id number] 0 / [id number] Insurance MEDICAID - OUT OF STATE UHC [...] 9:35 AM 11/06/2019 4:21 PM Care Teams Laborer Shaft Sinking Relationship Specialty Start Date End Date Vanna Dave APRN-KIM [address] [id number] PCP - General 11/20/20
--- OUTSIDE RECORDS SUMMARY | 2024-10-31 10:53 | XMS_ITS | Data Portability ---
Author Organization [place] - [facility] [employer], Main Office Address [address] [place] [address] Care Team Providers Care Youth Leader Name Role Phone TERENCE BARBER Primary Care Provider CHRISTINE BARRISO Manager Of Tax GABY STOUT Fisher Quahog [phone] Assessment Encounter Date Assessment Date Assessment LastModified [...] be referred to Dr. 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 Nicotine cessation counseling provided. Chauvin for quitting nicotine include getting ready, getting [...] in Quit For Life program Registering at [email or web address].Mozido Making a call to 6-329-KEHE-NOW ( ). A strong, clear, personalized message [...] failure or relapse. Patient can enroll in [facility]'s smoking cessation class through Ruby Gallegos [...] CBC w/ auto diff [address] (Lab), [address] [place], [address], 09/12/2024 12:14:01 lipid panel, serum [address] (Lab), [address] [place], [address], 09/12/2024 12:14:00 CBC w/ auto diff 2024 025 [facility] (Lab), [address] [place], [address], 10/23/2024 16:41:03 CMP, serum or plasma [address] (Lab), [address] [place], [address], 09/12/2024 12:14:00 TSH, serum or plasma [address] (Lab), [address] [place], [address], 09/12/2024 12:14:02 vitamin D, 25-hydrox y, total, serum [address] (Lab), [address] [place], [address], 09/12/2024 12:14:01 glycohemo globin, total, blood [address] (Lab), [address] [place], [address], 09/12/2024 12:13:59 microalbu min, urine [address] (Lab), [address] [place], [address], 09/12/2024 12:13:59 TSH, serum or plasma [address] (Lab), [address] [place], [address], 09/12/2024 12:14:01 vitamin B12 + folate, serum or blood [address] (Lab), [address] [place], [address], 09/12/2024 12:14:01 CBC w/ auto diff [address] (Lab), [address] [place], [address], 06/13/2024 16:26:53 lipid panel, serum 2024 025 [facility] (Lab), [address] [place], [address], 09/06/2024 15:02:08 CBC w/ auto diff [address] (Lab), [address] [place], [address], 06/13/2024 16:26:52 CMP, serum or plasma 2024 025 [facility] (Lab), [address] [place], [address], 09/05/2024 13:48:48 TSH, serum or plasma [address] (Lab), [address] [place], [address], 06/13/2024 16:26:54 vitamin D, 25-hydrox y, total, serum [address] (Lab), [address] [place], [address], 06/13/2024 16:26:53 glycohemo globin, total, blood [address] (Lab), [address] [place], [address], 06/13/2024 16:26:50 microalbu min, urine 2024 025 [facility] (Lab), [address] [place], [address], 09/06/2024 15:02:08 T4, free, serum [address] (Lab), [address] [place], [address], 06/13/2024 16:26:54 TSH, serum or plasma [address] (Lab), [address] [place], [address], 06/13/2024 16:26:54 vitamin B12 + folate, serum or blood [address] (Lab), [address] [place], [address], 06/13/2024 16:26:53 CBC w/ auto diff 2023 024 [facility] (Lab), [address] [place], [address], 02/19/2024 11:36:51 lipid panel, serum 2023 024 [facility] (Lab), [address] [place], [address], 02/19/2024 12:03:05 CBC w/ auto diff [address] (Lab), [address] [place], [address], 08/14/2024 08:48:30 CMP, serum or plasma 2023 024 [facility] (Lab), [address] [place], [address], 02/19/2024 12:03:10 TSH, serum or plasma [address] (Lab), [address] [place], [address], 08/14/2024 08:48:30 vitamin D, 25-hydrox y, total, serum [address] (Lab), [address] [place], [address], 08/14/2024 08:48:30 glycohemo globin, total, blood 2023 024 [facility] (Lab), [address] [place], [address], 02/19/2024 15:16:55 microalbu min, urine 2023 024 [facility] (Lab), [address] [place], [address], 02/19/2024 12:25:51 T4, free, serum 2023 024 [facility] (Lab), [address] [place], [address], 02/19/2024 12:21:33 TSH, serum or plasma 2023 024 [facility] (Lab), [address] [place], [address], 02/19/2024 12:33:09 vitamin B12 + folate, serum or blood [address] (Lab), [address] [place], [address], 08/14/2024 08:48:30 CBC w/ auto diff 2023 024 [facility] (Lab), [address] [place], [address], 10/13/2023 11:48:46 potassium , serum or plasma [address] (Lab), [address] [place], [address], 04/16/2024 08:46:59 lipid panel, serum 2023 024 [facility] (Lab), [address] [place], [address], 10/13/2023 11:01:56 CBC w/ auto diff [address] (Lab), [address] [place], [address], 04/16/2024 08:46:59 CMP, serum or plasma 2023 024 [facility] (Lab), [address] [place], [address], 10/13/2023 11:02:22 TSH, serum or plasma [address] (Lab), [address] [place], [address], 04/16/2024 08:46:59 vitamin D, 25-hydrox y, total, serum [address] (Lab), [address] [place], [address], 04/16/2024 08:46:59 glycohemo globin, total, blood 2023 024 [facility] (Lab), [address] [place], [address], 10/13/2023 11:59:58 microalbu min, urine 2023 024 [facility] (Lab), [address] [place], [address], 10/13/2023 11:26:11 T4, free, serum 2023 024 [facility] (Lab), [address] [place], [address], 10/13/2023 11:17:29 TSH, serum or plasma 2023 024 [facility] (Lab), [address] [place], [address], 10/13/2023 11:44:05 vitamin B12 + folate, serum or blood [address] (Lab), [address] [place], [address], 04/16/2024 08:46:59 Referral infectiou s disease specialis t referral - Please call patient to schedule. Note from provider: (+) Quantifer on TB Gold 2024 025 JOHANA Holt MD, [address], [address], [place], [address], 10/22/2024 14:40:33 hematolog ist referral - Please call patient to schedule an appointme nt. Thank you. 2024 025 JOHANA Williamson MD, [address], [place], [address], 09/13/2024 11:33:06 gynecolog ist referral - Please call patient to schedule an appointme nt. Thank you. 2024 025 JOHANA Olivarez, [address], [place], [address], Ph [phone] 09/13/2024 11:46:51 nephrolog ist referral - Please call patient to schedule an appointme nt. Thank you. 2024 025 JOHANA Del Valle MD (Nephrology, [address], [place], [address], 09/13/2024 11:24:41 pulmonolo gist referral - Please call patient to schedule an appointme nt. Thank you. 2024 025 [email or web address] Christine Barrios MD, [address] [place], [address], 09/13/2024 11:11:25 cardiolog ist referral - Please call patient to schedule an appointme nt. Thank you. 2024 025 [place], [address], [address], [place], [address], 09/13/2024 12:09:41 podiatris t referral - Please call patient to schedule an appointme nt. Thank you. 2024 025 CHITO CALVERTM, [address] [facility], [address], [place], [address], 09/16/2024 08:46:44 hematolog ist referral - Please call patient to schedule an appointme nt. Thank you. 2024 025 [email or web address] Tommie Williamson MD, [address], [place], [address], 08/07/2024 08:46:15 gynecolog ist referral - Please call patient to schedule an appointme nt. Thank you. 2024 025 [email or web address] Radha Olivarez, [address], [place], [address], Ph [phone] 10/24/2024 08:53:48 nephrolog ist referral - Please call patient to schedule an appointme nt. Thank you. 2024 025 Shubham Del Valle MD (Nephrology, [address], [address], [place], [address], 10/24/2024 08:53:50 pulmonolo gist referral - Please call patient to schedule an appointme nt. Thank you. 2024 025 [email or web address] Christine Barrios MD, [address] [facility], [place], [address], 08/20/2024 08:40:58 cardiolog ist referral - Please call patient to schedule an appointme nt. Thank you. 2024 025 Carlos Alberto Graf MD, [address], [address], [place], [address], 08/20/2024 08:40:47 podiatris t referral - Please call patient to schedule an appointme nt. Thank you. 2024 025 [email or web address] Bolivar Dupont DPM, [address], [address], [place], [address], 10/24/2024 08:53:49 gynecolog ist referral - Please call patient to schedule. 09/26/ 2024 09/26/2 024 [email or web address] Radha Olivarez, [address], [place], [address], Ph [phone] 09/17/2024 12:39:41 nephrolog ist referral 2023 024 [email or web address] Shubham Del Valle MD (Nephrology, [address], [address], [place], [address], 02/19/2024 16:05:34 pulmonolo gist referral 2023 024 [email or web address] Christine Barrios MD, [address], [place], [address], 02/19/2024 16:05:34 cardiolog ist referral 2023 024 [email or web address] Carlos Alberto Graf MD, [address], [address], [place], [address], 02/19/2024 16:05:33 podiatris t referral - Please call patient to schedule. 2023 024 [email or web address] Bolivar Dupont DPM, [address], [address], [place], [address], 03/21/2024 08:09:19 ENT surgery referral 2023 024 Gaby Stout MD, [address], [place], [address], 05/07/2024 15:58:00 gynecolog ist referral 2023 024 [email or web address] Radha Olivarez, [address], [place], [address], Ph [phone] 04/16/2024 08:47:10 nephrolog ist referral 2023 024 [email or web address] João [place], [address], [address], [place], [address], 11/09/2023 12:53:39 pulmonolo gist referral 2023 024 [email or web address] Christine Barrios MD, [address] [facility], [place], [address], 11/09/2023 12:53:16 cardiolog ist referral 2023 024 [email or web address] Carlos Alberto Graf MD, [address], [address], [place], [address], 04/16/2024 08:47:11 podiatris t referral 2023 024 [email or web address] Bolivar Dupont DPM, [address], [address], [place], [address], 04/16/2024 08:47:12 Procedures colonosco py screening (PROC) - Please call patient to schedule an appointme nt. Thank you. 2024 025 [email or web address] Martinez MD, [address] [facility], [facility] [address], [place], [address], 09/13/2024 11:06:16 upper endoscopy procedure (EGD) (PROC) - Please call patient to schedule an appointme nt. Thank you. 2024 025 [email or web address] Martinez MD, [address], [facility] [address], [place], [address], 09/13/2024 11:03:26 colonosco py screening (PROC) - Please call patient to schedule an appointme nt. Thank you. 2024 025 [email or web address] Martinez MD, [address], [address], [place], [address], 08/20/2024 08:52:24 upper endoscopy procedure (EGD) (PROC) - Please call patient to schedule an appointme nt. Thank you. 2024 025 [email or web address] Martinez MD, [address], [address], [place], [address], 08/20/2024 08:51:54 colonosco py screening (PROC) - Please call patient to schedule. 2023 024 [email or web address] Martinez MD, [address], [address], [place], [address], 09/17/2024 08:37:51 upper endoscopy procedure (EGD) (PROC) - Please call patient to schedule. 2023 024 [email or web address] Martinez MD, [address], [place], [address], 09/17/2024 08:37:31 colonosco py screening (PROC) 2023 024 astrid Villalta MD, [address], [address], [place], [address], 04/16/2024 08:46:25 upper endoscopy procedure (EGD) (PROC) 2023 024 astrid Villalta MD, [address], [address], [place], [address], 04/16/2024 08:46:24 Surgeries None recorded. Imaging CT, chest, w/o contrast [address], [address], [place], [address], 10/22/2024 16:06:12 MAMMO, screening , digital, bilateral - Please call patient to schedule. [address] [facility], [address], [place], [address], 09/12/2024 12:31:25 LDCT, chest, for lung cancer screening [address] [facility], [address], [place], [address], 09/12/2024 12:30:52 DEXA, axial skeleton - Please call patient to schedule. [address] [facility], [address], [place], [address], 10/17/2024 12:09:50 MAMMO, screening , digital, bilateral - Please call patient to schedule. [address], [address], [address], [place], [address], 09/19/2024 16:04:39 LDCT, chest, for lung cancer screening - Please call patient to schedule. 2024 025 [facility], [address], [address], [place], [address], 08/19/2024 07:46:17 DEXA, axial skeleton [email or web address], [address], [address], [place], [address], 07/23/2024 14:18:35 DEXA, axial skeleton [address] ([facility]), [address], [place], [address], 08/27/2024 16:12:49 Medication Orders lisinopri l 2.5 mg tablet 2024 025 [facility] #[id number], [address], [place], [address], 06/13/2024 16:25:36 lisinopri l 2.5 mg tablet 2023 024 [id number], [address] , [place], [address], 06/13/2024 15:43:05 Patient TargetsNo targets recorded. Patient Instructions Encounter Date Encounter Id Patient Instructions Last Modified By Organization Details Last Modified Time 10/12/2023 [id number] dementia rating scale-2* [email or web address] Not available 10/12/2023 16:17:33 depression screening* [email or web address] Not available 10/12/2023 16:17:16 alcohol misuse* [email or web address] Not available 10/12/2023 16:16:59 multi-dimensiona l health assessment questionnaire* Not available 10/12/2023 16:33:32 advance directiv es: care instructions [email or web address] Not available 10/12/2023 16:33:32 advance care planning: care instructions [facility] Not available 10/12/2023 16:33:[address] [place] [address] [facility] Not available 10/12/2023 16:33:32 diabetic eye exam* [email or web address] Not availa ble 04/16/2024 08:46:33 Personalized Hea lt Plan and Screening Recommendations Advance Directives [...] Cancer Screening with mammogram: Your next mammogram: 1 year Cervical/Uterine/Ov moise Cancer Screening: Referral to parent educator Osteoporosis Screening: Ordered Date Screening Last Performed: 09/28/2021 Colon Cancer Screening: Colonoscopy Referral done Eye Disease Screening: Recommended today Dementia Risk: Intermediate I have no recommendations Depression Screening: Negative [email or web address] Not available 10/12/2023 16:20:15 06/13/2024 [id number] diabetic eye exam* [email or web address] Not avail able 06/13/2024 16:26:55 09/12/2024 [id number] diabetic eye exam* [email or web address] Not avail able 09/12/2024 12:14:02 10/17/2024 [id number] complete PFT w/ post bronchodilator spirometry* - Please call patient to schedule. RAMOS [id number] per payor portal, ref #[id number]. [email or web address] Not available 10/21/2024 16:05:21 Reason for Referral Home Planning Consultant Salesperson Referral for Gy necologic examination Referring Physician: Terence Barber Internal Medicine, Encounter Date: 10/12/2023 Environmental Field Technician Referral for Co ronary arteriosclerosis Referring Physician: Petrona Brandt Medicine, Encounter Date: 10/12/2023 Manager Of Tax Referral for C hronic obstructive pulmonary disease Referring Physician: Petrona Brandt Medicine, Encounter Date: 10/12/2023 Dial Lathe Operator Referral for Type 2 diabetes mellitus without complication Referring Physician: Petrona Brandt Medicine, Encounter Date: 10/12/2023 Seat Cover Cutter Referral for Pr oteinuria Referring Physician: Petrona Brandt Medicine, Encounter Date: 10/12/2023 ENT Surgery Referral for Thy roid nodule Referring Physician: Petrona Brandt, Encounter Date: 10/12/2023 Home Planning Consultant Salesperson Referral for Gy necologic examination Please call patient to schedule. Referring Physician: Petrona Brandt, Encounter Date: 02/15/2024 Environmental Field Technician Referral for Co ronary arteriosclerosis Referring Physician: Terence Barber Internal Medicine, Encounter Date: 02/15/2024 Manager Of Tax Referral for C hronic obstructive pulmonary disease Referring Physician: Petrona Brandt Medicine, Encounter Date: 02/15/2024 Dial Lathe Operator Referral for Type 2 diabetes mellitus without complication Please call patient to schedule. Referring Physician: Petrona Brandt Medicine, Encounter Date: 02/15/2024 Seat Cover Cutter Referral for Pr oteinuria Referring Physician: Terence Barber [facility] Medicine, Encounter Date: 02/15/2024 Home Planning Consultant Salesperson Referral for Gy necologic examination Please call patient to schedule an appointment. Thank you. Referring Physician: Petrona Brandt, Encounter Date: 06/13/2024 Environmental Field Technician Referral for Co ronary arteriosclerosis Please call patient to schedule an appointment. Thank you. Referring Physician: Terence Barber [facility], Encounter Date: 06/13/2024 Manager Of Tax Referral for C hronic obstructive pulmonary disease Please call patient to schedule an appointment. Thank you. Referring Physician: Petrona Brandt, Encounter Date: 06/13/2024 Dial Lathe Operator Referral for Type 2 diabetes mellitus without complication Please call patient to schedule an appointment. Thank you. Referring Physician: Petrona Brandt Medicine, Encounter Date: 06/13/2024 Seat Cover Cutter Referral for Pr oteinuria Please call patient to schedule an appointment. Thank you. Referring Physician: Petrona Brandt, Encounter Date: 06/13/2024 Please call patient to sched ule an appointment. Thank you. Referring Physician: Petrona Brandt, Encounter Date: 06/13/2024 Home Planning Consultant Salesperson Referral for Gy necologic examination Please call patient to schedule an appointment. Thank you. Referring Physician: Terence Barber, Internal Medicine, Encounter Date: 09/12/2024 Environmental Field Technician Referral for Co ronary arteriosclerosis Please call patient to schedule an appointment. Thank you. Referring Physician: Terence Barber, Internal Medicine, Encounter Date: 09/12/2024 Manager Of Tax Referral for C hronic obstructive pulmonary disease Please call patient to schedule an appointment. Thank you. Referring Physician: Terence Barber, Internal Medicine, Encounter Date: 09/12/2024 Dial Lathe Operator Referral for Type 2 diabetes mellitus without complication Please call patient to schedule an appointment. Thank you. Referring Physician: Terence Barber, Internal Medicine, Encounter Date: 09/12/2024 Seat Cover Cutter Referral for Pr oteinuria Please call patient to schedule an appointment. Thank you. Referring Physician: Terence Barber, Internal Medicine, Encounter Date: 09/12/2024 Please call patient to sched ule an appointment. Thank you. Referring Physician: Terence Barber, Internal Medicine, Encounter Date: 09/12/2024 Infectious [...] Order d not applic able Not Available [facility] (Cologuard Orders Only) [address], [place], [address], 11/07/2023 12:05:14 10/13/19 24 10/13/2023 LIPID PANEL cholesterol 145 mg/dL 140-19 9 NIH ALEKS NSUS RECOM MENDA TION FOR GLORIA STERO L: ADULT CHILD LOW RISK: <200 <170 BORDE RLINE : <200- 239 ----- HIGH RISK: >240 >200 Not Available [facility] (Lab) [address] [place], [address], 10/13/2023 11:01:56 10/13/19 24 10/13/2023 LIPID PANEL triglyceride s 127 mg/dL 0-150 NIH ALEKS NSUS REPOR T RECOM MENDA TION FOR TRIGL YCERI WES: ADULT CHILD LOW RISK: <150 ----- BODER LINE: 150-1 99 ----- HIGH RISK: >200 ----- Not Available [facility] (Lab) [address] [place], [address], 10/13/2023 11:01:56 10/13/19 24 10/13/2023 LIPID PANEL HDL cholesterol 39 mg/dL 40- low Not Available [facility] (Lab) [address] [place], [address], 10/13/2023 11:01:56 10/13/19 24 10/13/2023 LIPID PANEL [...] WILL NOT BE REPOR GEOVANNA. Not Available [facility] (Lab) [address] [place], [address], 10/13/2023 11:01:56 10/13/1910/13/2023 COMPR EHENS YULIANA METAB OLIC PANEL sodium 140 mmol/ L 137-14 5 Not Available [facility] (Lab) [address] [place], [address], 10/13/2023 11:02:22 10/13/19 24 10/13/2023 COMPR EHENS YULIANA METAB OLIC PANEL potassium 5.1 mmol/ L 3.5-5. 1 Not Available [facility] (Lab) [address] [place], [address], 10/13/2023 11:02:22 10/13/19 24 10/13/2023 COMPR EHENS YULIANA METAB OLIC PANEL chloride 115 mmol/ L 98-107 high Not Available [facility] (Lab) [address] [place], [address], 10/13/2023 11:02:22 10/13/19 24 10/13/2023 COMPR EHENS YULIANA METAB OLIC PANEL carbon dioxide 19 mmol/ L 22-30 low Not Available [facility] (Lab) [address] [place], [address], 10/13/2023 11:02:22 10/13/19 24 10/13/2023 COMPR EHENS YULIANA METAB OLIC PANEL anion gap 11.1 mmol/ L 14-22 low Not Available [facility] (Lab) [address] [place], [address], 10/13/2023 11:02:22 10/13/19 24 10/13/2023 COMPR EHENS YULIANA METAB OLIC PANEL glucose 107 mg/dL 70-99 high Not Available [facility] (Lab) [address] [place], [address], 10/13/2023 11:02:22 10/13/19 24 10/13/2023 COMPR EHENS YULIANA METAB OLIC PANEL BUN 15 mg/dL 8-19 Not Available [facility] (Lab) [address] [place], [address], 10/13/2023 11:02:22 10/13/19 24 10/13/2023 COMPR EHENS YULIANA METAB OLIC PANEL creatinine 0.92 mg/dL 0.66-1 .25 Not Available [facility] (Lab) [address] [place], [address], 10/13/2023 11:02:22 10/13/19 24 10/13/2023 COMPR EHENS YULIANA METAB OLIC PANEL GFR >60 Refer ence Range : [place] ge GFR Healt hy Adult : >60 [...] or ethni c subgr oups, such as Abdon nics. Outsi de the valid ated tk [...] calcu lator is avail able on the [facility] websi te: https ://zoe pinzon.mandie rg/pr ofess ional s/kdo qi/gf r_cal culat or Not Available [facility] (Lab) [address] [place], [address], 10/13/2023 11:02:22 10/13/19 24 10/13/2023 COMPR EHENS YULIANA METAB OLIC PANEL alkaline phosphatase 73 U/L 38-126 Not Available [facility] (Lab) [address] [place], [address], 10/13/2023 11:02:22 10/13/19 24 10/13/2023 COMPR EHENS YULIANA METAB OLIC PANEL alanine aminotransfe rase 17 U/L 0-35 Not Available [facility] (Lab) [address] [place], [address], 10/13/2023 11:02:22 10/13/19 24 10/13/2023 COMPR EHENS YULIANA METAB OLIC PANEL aspartate aminotransfe rase 22 U/L 15-37 Not Available [facility] (Lab) [address] [place], [address], 10/13/2023 11:02:22 10/13/19 24 10/13/2023 COMPR EHENS YULIANA METAB OLIC PANEL bilirubin, total 0.40 mg/dL 0.20-1 .30 Not Available [facility] (Lab) [address] [place], [address], 10/13/2023 11:02:22 10/13/19 24 10/13/2023 COMPR EHENS YULIANA METAB OLIC PANEL calcium 9.7 mg/dL 8.4-10 .2 Not Available [facility] (Lab) [address] [place], [address], 10/13/2023 11:02:22 10/13/19 24 10/13/2023 COMPR EHENS YULIANA METAB OLIC PANEL total protein 6.9 g/dL 6.3-8. 2 Not Available [facility] (Lab) [address] [place], [address], 10/13/2023 11:02:22 10/13/19 24 10/13/2023 COMPR EHENS YULIANA METAB OLIC PANEL albumin 4.2 g/dL 3.0-4. 4 Not Available [facility] (Lab) [address] [place], [address], 10/13/2023 11:02:22 10/13/19 24 10/13/2023 COMPR EHENS YULIANA METAB OLIC PANEL globulin 2.7 g/dL 2.6-4. 2 Not Available [facility] (Lab) [address] [place], [address], 10/13/2023 11:02:22 10/13/19 24 10/13/2023 COMPR EHENS YULIANA METAB OLIC PANEL A/G ratio 1.6 ratio 1.0-2. 0 Not Available [facility] (Lab) [address] [place], [address], 10/13/2023 11:02:22 10/13/19 24 10/13/2023 T4 FREE free T4 0.80 NG/dL 0.78-2 .19 Not Available [facility] (Lab) [address] [place], [address], 10/13/2023 11:17:29 10/13/19 24 10/13/2023 MICRO ALBUM IN RANDO M URINE microalbumin , urine 45.6 mg/L 0.0-16 .6 high Not Available [facility] (Lab) [address] [place], [address], 10/13/2023 11:26:10 10/13/19 24 10/13/2023 TSH thyroid-stim ulating hormone 1.200 uIU/m L 0.465- 4.680 Not Available [facility] (Lab) [address] [place], [address], 10/13/2023 11:44:04 10/13/19 24 10/13/2023 CBC/C OMPLE TE BLD COUNT W/DIF F white blood cells 8.4 x10'3 /uL 4.2-10 .8 Not Available [facility] (Lab) [address] [place], [address], 10/13/2023 11:48:46 10/13/19 24 10/13/2023 CBC/C OMPLE TE BLD COUNT W/DIF F red blood cells 4.37 x10'6 /uL 3.80-5 .20 Not Available [facility] (Lab) [address] [place], [address], 10/13/2023 11:48:46 10/13/19 24 10/13/2023 CBC/C OMPLE TE BLD COUNT W/DIF F hemoglobin 13.3 g/dL 12.0-1 5.6 Not Available [facility] (Lab) [address] [place], [address], 10/13/2023 11:48:46 10/13/19 24 10/13/2023 CBC/C OMPLE TE BLD COUNT W/DIF F hematocrit 41.8 % 35.7-4 5.7 Not Available [facility] (Lab) [address] [place], [address], 10/13/2023 11:48:46 10/13/19 24 10/13/2023 CBC/C OMPLE TE BLD COUNT W/DIF F mean red cell volume 95.7 fL 82.0-9 9.0 Not Available [facility] (Lab) [address] [place], [address], 10/13/2023 11:48:46 10/13/19 24 10/13/2023 CBC/C OMPLE TE BLD COUNT W/DIF F mean red cell hemoglobin 30.4 pg 27.0-3 3.0 Not Available [facility] (Lab) [address] [place], [address], 10/13/2023 11:48:46 10/13/19 24 10/13/2023 CBC/C OMPLE TE BLD COUNT W/DIF F mean RBC HGB concentratio n 31.8 g/dL 31.0-3 6.0 Not Available [facility] (Lab) [address] [place], [address], 10/13/2023 11:48:46 10/13/19 24 10/13/2023 CBC/C OMPLE TE BLD COUNT W/DIF F red cell distribution width 15.1 % 11.8-1 5.5 Not Available [facility] (Lab) [address] [place], [address], 10/13/2023 11:48:46 10/13/19 24 10/13/2023 CBC/C OMPLE TE BLD COUNT W/DIF F platelets 424 x10'3 /uL 150-40 0 high Not Available [facility] (Lab) [address] [place], [address], 10/13/2023 11:48:46 10/13/19 24 10/13/2023 CBC/C OMPLE TE BLD COUNT W/DIF F mean platelet volume 9.7 fL 9.0-12 .4 Not Available [facility] (Lab) [address] [place], [address], 10/13/2023 11:48:46 10/13/19 24 10/13/2023 CBC/C OMPLE TE BLD COUNT W/DIF F neutrophils 39.5 % 39.0-7 2.0 Not Available [facility] (Lab) [address] [place], [address], 10/13/2023 11:48:46 10/13/19 24 10/13/2023 CBC/C OMPLE TE BLD COUNT W/DIF F lymphocytes 48.4 % 16.0-4 7.0 high Not Available [facility] (Lab) [address] [place], [address], 10/13/2023 11:48:46 10/13/19 24 10/13/2023 CBC/C OMPLE TE BLD COUNT W/DIF F monocytes 8.4 % 5.0-12 .0 Not Available [facility] (Lab) [address] [place], [address], 10/13/2023 11:48:46 10/13/19 24 10/13/2023 CBC/C OMPLE TE BLD COUNT W/DIF F eosinophils 2.9 % 1.0-7. 0 Not Available [facility] (Lab) [address] [place], [address], 10/13/2023 11:48:46 10/13/19 24 10/13/2023 CBC/C OMPLE TE BLD COUNT W/DIF F basophils 0.6 % 0.0-2. 0 Not Available [facility] (Lab) [address] [place], [address], 10/13/2023 11:48:46 10/13/19 24 10/13/2023 CBC/C OMPLE TE BLD COUNT W/DIF F immature granulocytes 0.2 % 0.00-0 .50 Not Available [facility] (Lab) [address] [place], [address], 10/13/2023 11:48:46 10/13/19 24 10/13/2023 CBC/C OMPLE TE BLD COUNT W/DIF F neutrophils, absolute count 3.30 x10'3 /uL 1.5-8. 0 Not Available [facility] (Lab) [address] [place], [address], 10/13/2023 11:48:46 10/13/19 24 10/13/2023 CBC/C OMPLE TE BLD COUNT W/DIF F lymphocytes, absolute count 4.04 x10'3 /uL 1.07-3 .43 high Not Available [facility] (Lab) [address] [place], [address], 10/13/2023 11:48:46 10/13/19 24 10/13/2023 CBC/C OMPLE TE BLD COUNT W/DIF F monocytes, absolute count 0.70 x10'3 /uL 0.29-0 .99 Not Available [facility] (Lab) [address] [place], [address], 10/13/2023 11:48:46 10/13/19 24 10/13/2023 CBC/C OMPLE TE BLD COUNT W/DIF F eosinophils, absolute count 0.24 x10'3 /uL 0.02-0 .53 Not Available [facility] (Lab) [address] [place], [address], 10/13/2023 11:48:46 10/13/19 24 10/13/2023 CBC/C OMPLE TE BLD COUNT W/DIF F basophils, absolute count 0.05 x10'3 /uL 0.01-0 .08 Not Available [facility] (Lab) [address] [place], [address], 10/13/2023 11:48:46 10/13/19 24 10/13/2023 CBC/C OMPLE TE BLD COUNT W/DIF F immature granulocytes ,absolute 0.02 x10'3 /uL 0.00-0 .05 Not Available [facility] (Lab) [address] [place], [address], 10/13/2023 11:48:46 10/13/19 24 10/13/2023 CBC/C OMPLE TE BLD COUNT W/DIF F nucleated red blood cells 0.0 % -0 Not Available [facility] (Lab) [address] [place], [address], 10/13/2023 11:48:46 10/13/19 24 10/13/2023 CBC/C OMPLE TE BLD COUNT W/DIF F NRBC# 0.00 x10'3 /uL Not Available [facility] (Lab) [address] [place], [address], 10/13/2023 11:48:46 10/13/19 24 10/13/2023 HEMOG LOBIN A1C HA1C 6.4 % 4.0-6. 0 high Diabe dick Scree brennon Crite kena: <5.7% Consi stent with absen ce of diabe dick 5.7-6 .4% Consi stent with incre ased risk for diabe dick (pred iabet es) >OR=6 .5% Consi stent with diabe dick REFER ENCE: Diabe dick Care 2016, 39(Jones ppl.1 ):s13 -s22 Not Available [facility] (Lab) [address] [place], [address], 10/13/2023 11:59:58 10/13/19 24 10/13/2023 VITAM IN D 25-HY DROXY vd25oh 65.2 NG/mL 30-100 Vitam in D Statu s: Defic ient: <20 ng/mL Insuf ficie nt: 20-29 ng/mL Suffi cient : 30-10 0 ng/mL Not Available [facility] (Lab) [address] [place], [address], 10/13/2023 13:22:31 10/13/19 24 10/13/2023 FOLAT E, SERUM /PLAS MA folate 8.91 NG/mL 2.76-2 0.0 Not Available [facility] (Lab) [address] [place], [address], 10/13/2023 13:44:45 10/13/19 24 10/13/2023 VITAM IN B12 (SCOOBY JOSE LUIS ) vb12 206 pg/mL 239-93 1 low Not Available [facility] (Lab) [address] [place], [address], 10/13/2023 13:44:49 02/19/20 24 02/19/2024 CBC/C OMPLE TE BLD COUNT W/DIF F white blood cells 11.3 x10'3 /uL 4.2-10 .8 high Not Available [facility] (Lab) [address] [place], [address], 02/19/2024 12:03:02 02/19/20 24 02/19/2024 CBC/C OMPLE TE BLD COUNT W/DIF F red blood cells 4.41 x10'6 /uL 3.80-5 .20 Not Available [facility] (Lab) [address] [place], [address], 02/19/2024 12:03:02 02/19/20 24 02/19/2024 CBC/C OMPLE TE BLD COUNT W/DIF F hemoglobin 13.8 g/dL 12.0-1 5.6 Not Available [facility] (Lab) [address] [place], [address], 02/19/2024 12:03:02 02/19/20 24 02/19/2024 CBC/C OMPLE TE BLD COUNT W/DIF F hematocrit 43.9 % 35.7-4 5.7 Not Available [facility] (Lab) [address] [place], [address], 02/19/2024 12:03:02 02/19/20 24 02/19/2024 CBC/C OMPLE TE BLD COUNT W/DIF F mean red cell volume 99.5 fL 82.0-9 9.0 high Not Available [facility] (Lab) [address] [place], [address], 02/19/2024 12:03:02 02/19/20 24 02/19/2024 CBC/C OMPLE TE BLD COUNT W/DIF F mean red cell hemoglobin 31.3 pg 27.0-3 3.0 Not Available [facility] (Lab) [address] [place], [address], 02/19/2024 12:03:02 02/19/20 24 02/19/2024 CBC/C OMPLE TE BLD COUNT W/DIF F mean RBC HGB concentratio n 31.4 g/dL 31.0-3 6.0 Not Available [facility] (Lab) [address] [place], [address], 02/19/2024 12:03:02 02/19/20 24 02/19/2024 CBC/C OMPLE TE BLD COUNT W/DIF F red cell distribution width 13.9 % 11.8-1 5.5 Not Available [facility] (Lab) [address] [place], [address], 02/19/2024 12:03:02 02/19/20 24 02/19/2024 CBC/C OMPLE TE BLD COUNT W/DIF F platelets 450 x10'3 /uL 150-40 0 high Not Available [facility] (Lab) [address] [place], [address], 02/19/2024 12:03:02 02/19/20 24 02/19/2024 CBC/C OMPLE TE BLD COUNT W/DIF F mean platelet volume 10.2 fL 9.0-12 .4 Not Available [facility] (Lab) [address] [place], [address], 02/19/2024 12:03:02 02/19/20 24 02/19/2024 CBC/C OMPLE TE BLD COUNT W/DIF F neutrophils 43 % 39.0-7 2.0 Not Available [facility] (Lab) [address] [place], [address], 02/19/2024 12:03:02 02/19/20 24 02/19/2024 CBC/C OMPLE TE BLD COUNT W/DIF F lymphocytes 52 % 16.0-4 7.0 high Not Available [facility] (Lab) [address] [place], [address], 02/19/2024 12:03:02 02/19/20 24 02/19/2024 CBC/C OMPLE TE BLD COUNT W/DIF F monocytes 3 % 5.0-12 .0 low Not Available [facility] (Lab) [address] [place], [address], 02/19/2024 12:03:02 02/19/20 24 02/19/2024 CBC/C OMPLE TE BLD COUNT W/DIF F eosinophils 2 % 1.0-7. 0 Not Available [facility] (Lab) [address] [place], [address], 02/19/2024 12:03:02 02/19/20 24 02/19/2024 CBC/C OMPLE TE BLD COUNT W/DIF F neutrophils, absolute count 4.99 x10'3 /uL 1.5-8. 0 Not Available [facility] (Lab) [address] [place], [address], 02/19/2024 12:03:02 02/19/20 24 02/19/2024 LIPID PANEL cholesterol 136 mg/dL 140-19 9 low NIH ALEKS NSUS RECOM MENDA TION FOR GLORIA STERO L: ADULT CHILD LOW RISK: <200 <170 BORDE RLINE : <200- 239 ----- HIGH RISK: >240 >200 Not Available [facility] (Lab) [address] [place], [address], 02/19/2024 12:03:05 02/19/20 24 02/19/2024 LIPID PANEL triglyceride s 199 mg/dL 0-150 high NIH ALEKS NSUS REPOR T RECOM MENDA TION FOR TRIGL YCERI WES: ADULT CHILD LOW RISK: <150 ----- BODER LINE: 150-1 99 ----- HIGH RISK: >200 ----- Not Available [facility] (Lab) [address] [place], [address], 02/19/2024 12:03:05 02/19/20 24 02/19/2024 LIPID PANEL HDL cholesterol 33 mg/dL 40- low Not Available [facility] (Lab) [address] [place], [address], 02/19/2024 12:03:05 02/19/20 24 02/19/2024 LIPID PANEL [...] WILL NOT BE REPOR GEOVANNA. Not Available [facility] (Lab) [address] [place], [address], 02/19/2024 12:03:05 02/19/20 24 02/19/2024 COMPR EHENS YULIANA METAB OLIC PANEL sodium 138 mmol/ L 137-14 5 Not Available [facility] (Lab) [address] [place], [address], 02/19/2024 12:03:10 02/19/20 24 02/19/2024 COMPR EHENS YULIANA METAB OLIC PANEL potassium 4.9 mmol/ L 3.5-5. 1 Not Available [facility] (Lab) [address] [place], [address], 02/19/2024 12:03:10 02/19/20 24 02/19/2024 COMPR EHENS YULIANA METAB OLIC PANEL chloride 109 mmol/ L 98-107 high Not Available [facility] (Lab) [address] [place], [address], 02/19/2024 12:03:10 02/19/20 24 02/19/2024 COMPR EHENS YULIANA METAB OLIC PANEL carbon dioxide 23 mmol/ L 22-30 Not Available [facility] (Lab) [address] [place], [address], 02/19/2024 12:03:10 02/19/20 24 02/19/2024 COMPR EHENS YULIANA METAB OLIC PANEL anion gap 10.9 mmol/ L 14-22 low Not Available [facility] (Lab) [address] [place], [address], 02/19/2024 12:03:10 02/19/20 24 02/19/2024 COMPR EHENS YULIANA METAB OLIC PANEL glucose 125 mg/dL 70-99 high Not Available [facility] (Lab) [address] [place], [address], 02/19/2024 12:03:10 02/19/20 24 02/19/2024 COMPR EHENS YULIANA METAB OLIC PANEL BUN 19 mg/dL 8-19 Not Available [facility] (Lab) [address] [place], [address], 02/19/2024 12:03:10 02/19/20 24 02/19/2024 COMPR EHENS YULIANA METAB OLIC PANEL creatinine 1.15 mg/dL 0.66-1 .25 Not Available [facility] (Lab) [address] [place], [address], 02/19/2024 12:03:10 02/19/20 24 02/19/2024 COMPR EHENS YULIANA METAB OLIC PANEL GFR 47 Refer ence Range : [place] ge GFR Healt hy Adult : >60 [...] or ethni c subgr oups, such as Hisri nics. Outsi de the valid ated tk [...] calcu lator is avail able on the [facility] websi te: https :[email or web address] pinzon.mandie denton/lourdes martinez s/kdo qi/gf r_cal culat or Not Available [facility] (Lab) [address] [place], [address], 02/19/2024 12:03:10 02/19/20 24 02/19/2024 COMPR EHENS YULIANA METAB OLIC PANEL alkaline phosphatase 78 U/L 38-126 Not Available [facility] (Lab) [address] [place], [address], 02/19/2024 12:03:10 02/19/20 24 02/19/2024 COMPR EHENS YULIANA METAB OLIC PANEL alanine aminotransfe rase 22 U/L 0-35 Not Available [facility] (Lab) [address] [place], [address], 02/19/2024 12:03:10 02/19/20 24 02/19/2024 COMPR EHENS YULIANA METAB OLIC PANEL aspartate aminotransfe rase 24 U/L 15-37 Not Available [facility] (Lab) [address] [place], [address], 02/19/2024 12:03:10 02/19/20 24 02/19/2024 COMPR EHENS YULIANA METAB OLIC PANEL bilirubin, total 0.40 mg/dL 0.20-1 .30 Not Available [facility] (Lab) [address] [place], [address], 02/19/2024 12:03:10 02/19/20 24 02/19/2024 COMPR EHENS YULIANA METAB OLIC PANEL calcium 9.7 mg/dL 8.4-10 .2 Not Available [facility] (Lab) [address] [place], [address], 02/19/2024 12:03:10 02/19/20 24 02/19/2024 COMPR EHENS YULIANA METAB OLIC PANEL total protein 6.9 g/dL 6.3-8. 2 Not Available [facility] (Lab) [address] [place], [address], 02/19/2024 12:03:10 02/19/20 24 02/19/2024 COMPR EHENS YULIANA METAB OLIC PANEL albumin 4.1 g/dL 3.0-4. 4 Not Available [facility] (Lab) [address] [place], [address], 02/19/2024 12:03:10 02/19/20 24 02/19/2024 COMPR EHENS YULIANA METAB OLIC PANEL globulin 2.8 g/dL 2.6-4. 2 Not Available [facility] (Lab) [address] [place], [address], 02/19/2024 12:03:10 02/19/20 24 02/19/2024 COMPR EHENS YULIANA METAB OLIC PANEL A/G ratio 1.5 ratio 1.0-2. 0 Not Available [facility] (Lab) [address] [place], [address], 02/19/2024 12:03:10 02/19/20 24 02/19/2024 T4 FREE free T4 0.88 NG/dL 0.78-2 .19 Not Available [facility] (Lab) [address] [place], [address], 02/19/2024 12:21:33 02/19/2002/19/2024 MICRO ALBUM IN RANDO M URINE microalbumin , urine 28.6 mg/L 0.0-16 .6 high Not Available [facility] (Lab) [address] [place], [address], 02/19/2024 12:25:51 02/19/20 24 02/19/2024 TSH thyroid-stim ulating hormone 1.370 uIU/m L 0.465- 4.680 Not Available [facility] (Lab) [address] [place], [address], 02/19/2024 12:33:09 02/19/20 24 02/19/2024 VITAM IN B12 (SCOOBY JOSE LUIS ) vb12 527 pg/mL 239-93 1 Not Available [facility] (Lab) [address] [place], [address], 02/19/2024 13:33:52 02/19/20 24 02/19/2024 FOLAT E, SERUM /PLAS MA folate 11.8 NG/mL 2.76-2 0.0 Not Available [facility] (Lab) [address] [place], [address], 02/19/2024 13:33:57 02/19/20 24 02/19/2024 VITAM IN D 25-HY DROXY vd25oh 55.1 NG/mL 30-100 Vitam in D Statu s: Defic ient: <20 ng/mL Insuf ficie nt: 20-29 ng/mL Suffi cient : 30-10 0 ng/mL Not Available [facility] (Lab) [address] [place], [address], 02/19/2024 13:34:08 02/19/20 24 02/19/2024 HEMOG LOBIN A1C HA1C 7.4 % 4.0-6. 0 high Diabe dick Scree brennon Crite kena: <5.7% Consi stent with absen ce of diabe dick 5.7-6 .4% Consi stent with incre ased risk for diabe dick (pred iabet es) >OR=6 .5% Consi stent with diabe dick REFER ENCE: Diabe dick Care 2016, 39(Jones ppl.1 ):s13 -s22 Not Available [facility] (Lab) [address] [place], [address], 02/19/2024 15:16:55 09/29/19 24 09/29/2023 NM, myoca rdial perfu arslan scan No observ ation record ed. [facility] [address], [place], [address], 12/07/2023 12:34:17 12/20/19 24 12/20/2023 fine needl e aspir ation , ultra sound guide d, thyro id (PROC ) No observ ation record ed. [email or web address] [address], [place], [address], 12/21/2023 09:56:14 08/20/19 25 08/17/2024 LDCT, chest , for lung cance r scree brennon No observ ation record ed. [address], [place], [address], 08/19/2024 07:46:17 Result Notes None recorded. Problems Name Problem SNOMED Code Status Onset Date Resolution Date Notes Provider Name and Address Organization Details Recorded Time Vitamin D deficiency 29387679 Active 2022 Christine Barrios MD [address], [place], [address] , [employer] 18:33:51 Thrombocytosi s 7333318 Active 2022 Christine Barrios MD [address], [address], [place], [address] , [employer] 18:34:20 Coronary arteriosclero sis 53506068 Active 2022 Christine Barrios MD [address], [place], [address] , [employer] 18:37:16 Essential hypertension 65232954 Active 2022 Christine Barrios MD [address], [place], [address] , [employer] 18:37:19 Malignant neoplasm of urinary bladder 705387278 Active 2022 Christine Barrios MD [address], [place], [address] , [facility] 5 18:35:15 Thyroid nodule 250234183 Active 2022 Christine Barrios MD [address], [place], [address] , [place] [facility] 5 18:33:59 Cerebrovascul ar accident 337736130 Active 2022 Christine Barrios MD [address], [place], [address] , [place] [facility] 5 16:10:01 Chronic obstructive pulmonary disease 45800746 Active 2023 Christine Barrios MD [address], [place], [address] , [facility] 5 18:36:41 Proteinuria 07801080 Active 2023 Christine Barrios MD [address], [place], [address] , [facility] 5 18:34:45 Solitary nodule of lung 748784852 Active 2023 Christine Barrios MD [address], [place], [address] , [facility] 5 18:34:23 Cobalamin deficiency 752948525 Active 2023 Christine Barrios MD [address], [place], [address] , [facility] 5 18:37:13 Chronic kidney disease 420546486 Active 2024 Christine Barrios MD [address], [place], [address] , [facility] 5 18:36:35 Hyperlipidemi a 18487126 Active 2018 Not Available [facility] 3 06:53:10 Osteoporosis 75727431 Active 2021 Christine Barrios MD [address], [place], [address] , [facility] [employer] [facility] 5 18:35:05 Diabetes mellitus 66162639 Active 2018 Not Available [facility] 06:53:10 Notes:Medical History: Right CVA without residual [...] Thyroid nodule biopsy 2023 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 Procedures Surgical History Date Name Laterality Status Provider Name and Address Organization Details Recorded Time 10/12/19 Medicare Wellness CPT Code, subsequent completed Desmond Rojas LPN Mr. Number [facility] [email or web address] 10/12/2023 08:19:01 10/12/19 24 Advanced Care Planning completed Desmond Rojas LPN [employer] 10/12/2023 16:14:47 02/22/20 Transitional_Care _Management completed RAMSEY Berkowitz-Taylor [address], [facility] [address], [place], [address], [employer] [facility] 02/21/2023 15:45:18 01/05/20 22 procedure on urinary bladder completed Not Available [facility] 07/20/2022 04:42:53 11/11/19 20 procedure on urinary bladder completed Not Available [facility] 07/20/2022 04:42:53 07/15/19 20 procedure on urinary bladder completed Not Available [facility] 07/20/2022 04:42:53 09/12/19 19 transurethral excision of neoplasm of urinary bladder completed Not Available [facility] 07/20/2022 04:42:53 01/17/20 18 transurethral excision of neoplasm of urinary bladder completed Not Available [facility] 07/20/2022 04:42:53 01/17/20 18 Cystoscopy and treatment completed Not Available [facility] 07/20/2022 04:42:53 10/26/19 18 Cystoscopy and treatment completed Not Available [facility] 07/20/2022 04:42:53 03/20/20 17 Tlh w/t/o 250 g or less completed Not Available [facility] 07/20/2022 04:42:53 03/20/20 17 robotic assisted surgery completed Not Available [facility] 07/20/2022 04:42:53 Tubal Ligation completed Not Available [facility] 07/20/2022 04:42:53 transurethral excision of neoplasm of urinary bladder completed Not Available [facility] 07/20/2022 04:42:53 excision of urinary bladder completed Marbella Reyes MA [place] [employer] [facility] [email or web address] 02/21/2023 14:20:24 tonsillectomy completed MARIXA Faith Mr. Number [facility] [email or web address] 09/06/2023 12:51:39 Imaging Results None recorded. Procedure [...] Updated DateTime 5 167.64 cm 22.4 kg/m2 85154.3 4 g 97.5 [degF] 84 /min 132 mm[Hg] 60 mm[Hg] 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 [employer] [facility] 5 15:45:13 Date Recorded Body height Body mass index (BMI) Body weight Body temperature Heart rate Systolic blood pressure Diastolic blood pressure Provider Name and Address Organization Details Last Updated DateTime 5 167.64 cm 22 kg/m2 04358.5 6 g 97.6 [degF] 78 /min 108 mm[Hg] 62 mm[Hg] 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 [facility] [employer] [facility] 5 11:32:07 Date Recorded Body height Body mass index (BMI) Body weight Body temperature Heart rate Systolic blood pressure Diastolic blood pressure Provider Name and Address Organization Details Last Updated DateTime 4 167.64 cm 20.2 kg/m2 89960.0 5 g 97.4 [degF] 78 /min 122 mm[Hg] 60 mm[Hg] Patricia Snow KEYANNA [facility] [employer] [facility] 4 15:23:39 Date Recorded Heart rate Heart rate Respiratory rate Provider Name and Address Organization Details Last Updated DateTime 10/17/2024 71 /min 71 /min 15 /min Christine Barrios MD [address] [place] [address], [id number], [facility] [employer] 10/17/2024 12:12:21 Date Recorded Body height Body mass index (BMI) Body weight Body temperature Oxygen saturation Oxygen saturation in Arterial blood by Pulse oximetry Systolic blood pressure Diastolic blood pressure Provider Name and Address Organization Details Last Updated DateTime 5 167.64 cm 21.5 kg/m2 93390.7 9 g 98.4 [degF] 96 % 96 % 106 mm[Hg] 64 mm[Hg] Josie Slaughter MA [facility] [employer] [facility] 5 11:49:11 Date Recorded Body height Body mass index (BMI) Body weight Body temperature Heart rate Respiratory rate Oxygen saturation Oxygen saturation in Arterial blood by Pulse oximetry Systolic blood pressure Diastolic blood pressure Provider Name and Address Organization Details Last Updated DateTime 4 167.64 cm 22.3 kg/m2 77677.7 5 g 97.8 [degF] 88 /min 16 /min 95 % 95 % 124 mm[Hg] 62 mm[Hg] Desmond Rojas LPN [facility] [employer] [facility] 4 15:22:31 Social History Question Answer Notes LastModified by Organization Details LastModified Time Tobacco Smoking Status Current Every Day Smoker Not Available [facility] 04:33:42 Do You Have An Advance Directive? No Patient Given Informati on. [email or web address] Information not available 10/12/2023 Are You Blind Or Do You Have Difficulty Seeing? No [id number] Information not available 07/20/2022 What Is Your Level Of Caffeine Consumption? Occasional MIGRATION.0301 [id number] Information not available 07/20/2022 How Much Tobacco Do You Chew? None MIGRATION.0301 [id number] Information not available 07/20/2022 In The 14 Days Before Symptom Onset, Have You Had Close Contact With A Laboratory-confi rmed COVID-19 While That Case Was Ill? No MIGRATION.0301 [id number] Information not available 07/20/2022 In The 14 Days Before Symptom Onset, Have You Had Close Contact With A Person Who Is Under Investigation For COVID-19 While That Person Was Ill? No MIGRATION.0301 [id number] Information not available 07/20/2022 Are You Deaf Or Do You Have Serious Difficulty Hearing? No MIGRATION.0301 889249 Information not available 07/20/2022 What Type Of Diet Are You Following? REGULAR MIGRATION.030 099725 Information not available 07/20/2022 Which Illicit Or Recreational Drugs Have You Used? None MIGRATION.030 033016 Information not available 07/20/2022 What Is The Highest Grade Or Level Of School You Have Completed Or The Highest Degree You Have Received? [id number] [email or web address] Information not available 10/12/2023 Do You Have An Electrostatic Air Filter? No Information not available 07/31/2023 Have There Been Any Changes To Your Family Or Social Situation? No MIGRATION.030 293764 Information not available 07/20/2022 What Is The Fluoride Status Of Your Home? Unknown [email or web address] Information not available 10/12/2023 Are There Any Guns Present In Your Home? No MIGRATION.0301 206311 Information not available 07/20/2022 Do You Have A Humidifier? No Information not available 07/31/2023 Do You Use Insect Repellent Routinely? No MIGRATION.0301 493403 Information not available 07/20/2022 [facility] MIGRATION.0301 907497 Information not available 07/20/2022 Presence Of Domestic Violence No [email or web address] Information not available 10/12/2023 Guns Present In The Home? No [email or web address] Information not available 10/12/2023 Are You Able To Care For Yourself? Yes [email or web address] Information not available 10/12/2023 Are You Blind Or Do Yo Have Difficulty Seeing? No [email or web address] Information not available 10/12/2023 Are You Deaf Or Do You Have Serious Difficulty Hearing? No Information not available 10/12/2023 General Stress Level? Low [email or web address] Information not available 10/12/2023 Live Alone Of With Others? With Others Lives With Daughter. [email or web address] Information not available 10/12/2023 Do You Have A Medical Power Of Patient Access Registrar? No MIGRATION.0301 [id number] Information not available 07/20/2022 Do You Have Moisture Problems In Your Home? No Information not available 07/31/2023 What Was The Date Of Your Most Recent Tobacco Screening? 10/17/2024 Information not available 10/17/2024 What Is Your Current Pack Years? [email or web address] MIGRATION.0301 958606 Information not available 07/20/2022 Do You Have Any Pets? Yes MIGRATION.0301 534371 Information not available 07/20/2022 What Is Your Relationship Status? MIGRATION.0301 579003 Information not available 07/20/2022 Do You Use Your Seat Belt Or Car Seat Routinely? Yes Information not available 07/31/2023 Do You Have Smoke And Carbon Monoxide Detectors In Your Home? Yes MIGRATION.0301 798097 Information not available 07/20/2022 At What Age Did You Start Smoking Tobacco? 14 MIGRATION.0301 024993 Information not available 07/20/2022 Are You Passively Exposed To Smoke? Yes [email or web address] Information not available 10/12/2023 Are There Any Smokers In Your House? Yes MIGRATION.0301 048629 Information not available 07/20/2022 How Much Tobacco Do You Smoke? 1 PPD MIGRATION.0301 151091 Information not available 07/20/2022 Do You Use Sunscreen Routinely? No MIGRATION.0301 039358 Information not available 07/20/2022 Has Tobacco Cessation Counseling Been Provided? Yes Information not available 10/12/2023 On What Date Was Tobacco Cessation Counseling Provided? 10/12/2023 [email or web address] Information not available 10/12/2023 How Many Years Have You Smoked Tobacco? 47 MIGRATION.0301 958366 Information not available 07/20/2022 Have You Recently Traveled Abroad? No MIGRATION.0301 728891 Information not available 07/20/2022 Do You Have Difficulty Walking Or Climbing Stairs? No MIGRATION.0301 756660 Information not available 07/20/2022 Do You Have Any Dietary Restrictions? No MIGRATION.0301 370962 Information not available 07/20/2022 Sex: Female Functional Status Question Answer Note LastModified by Organizat ion Details LastModified Time Do you or have you ever used smokeless tobacco? Never used smokeless tobacco MIGRATION.05012 81793 Information not available 07/20/2022 Are you currently employed? No Information not available 07/27/2023 Have you been exposed to chemicals or toxins? not that aware of Information not available 07/31/2023 Do you have transportation difficulties? No MIGRATION.29954 45075 Information not available 07/20/2022 Are you able to care for yourself? Yes MIGRATION.33014 34567 Information not available 07/20/2022 Do you have difficulty dressing or bathing? No MIGRATION.98960 03459 Information not available 07/20/2022 Do you or have you ever used e-cigarettes or vape? Former user of electronic cigarettes Vape MIGRATION.43278 84585 Information not available 07/20/2022 What is your exercise level? Occasional active lifestyle MIGRATION.94055 73143 Information not available 07/20/2022 Do you use any illicit or recreational drugs? No MIGRATION.96049 85577 Information not available 07/20/2022 Do you or have you ever used any other forms of tobacco or nicotine? Yes MIGRATION.52616 40874 Information not available 07/20/2022 What is your level of alcohol consumption? None MIGRATION.67780 26316 Information not available 07/20/2022 Are you able to walk? YESWOREST MIGRATION.19951 16698 Information not available 07/20/2022 Do you have difficulty doing errands alone? No MIGRATION.89345 16580 Information not available 07/20/2022 What is your occupation? Retired MIGRATION.35768 81626 Information not available 07/20/2022 Mental Status Question Answer Note LastModified by Organizat ion Details LastModified Time Do you feel stressed (tense, restless, nervous, or anxious, or unable to sleep at night)? [id number] [email or web address] Information not available 10/12/2023 Do you have difficulty concentrating, remembering or making decisions? No MIGRATION.[id number] 26 Information not available 07/20/2022 Family History Relationship Description Onset Age of this Age Resolved Age Notes LastModified by Organization Details LastModified Time Father Hypertensive disorder MIGRATION.888 [id number] Not available 07/20/2022 04:42:59 Father Cerebrovascu lar accident [email or web address] Not available 0 09/12/2024 11:22:59 Mother Diabetes mellitus MIGRATION.350 [id number] Not available 07/20/2022 04:42:59 Sister Leukemia [email or web address] Not availa ble 09/12/2024 11:22:59 Sister Disorder of thyroid gland PT REPORT S THAT HER SISTER TAKES THYROI D MEDICA TION [email or web address] Not available 10/12/2023 15:00:13 Maternal Uncle Heart disease 1 1 [email or web address] Not available 2023 11:51:03 Brother Leukemia [email or web address] Not avail able 09/12/2024 11:22:59 Medical History [...] HAVE YOU BEEN HOSPITALIZED OR SEEN IN [facility] IN THE PAST YEAR ? Y ATHEROSCLEROSIS [...] high-dose, quadrivalent, PF 2 completed 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 [employer] 09/12/2024 11:30:10 COVID-19, mRNA, LNP-S, bivalent, PF, 30 mcg/0.3 mL dose 2 completed MONIK DriverA vivi [employer] 09/12/2024 11:30:10 influenza, unspecified formulation 9 completed 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 [employer] 09/12/2024 11:30:10 Influenza, high-dose, quadrivalent, PF 2 completed Not Available [facility] 01/17/2023 04:09:30 COVID-19, mRNA, LNP-S, PF, 100 mcg/0.5mL dose or 50 mcg/0.25mL dose 1 completed MONIK DriverA vivi [employer] 09/12/2024 11:30:10 COVID-19, mRNA, LNP-S, PF, 100 mcg/0.5mL dose or 50 mcg/0.25mL dose 1 completed Patricia Adamson RMAvery [place], [place] - S [employer] [facility] 09/12/2024 11:30:10 COVID-19, mRNA, LNP-S, PF, 100 mcg/0.5mL dose or 50 mcg/0.25mL dose 1 completed Patricia Adamson RMAvery [place], [employer] [facility] 09/12/2024 11:30:10 Pneumococcal conjugate PCV20, polysaccharide [id number] conjugate, adjuvant, PF 2 completed Not Available [facility] 01/17/2023 04:09:30 Influenza, high-dose, quadrivalent, PF 1 completed Not Available [facility] 01/17/2023 04:09:30 Influenza, split virus, quadrivalent, PF 9 completed Not Available [facility] 01/17/2023 04:09:31 Influenza, high-dose, quadrivalent, PF 3 completed Terence Barber MD [address], [place], [address], [facility] [employer] [facility] [employer] [facility] 05/09/2023 14:02:28 Influenza, high-dose, trivalent, PF 4 completed 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, Mr. Number [facility] [employer] [facility] 02/15/2024 16:06:54 Past Encounters Encounter ID Performer Location Encounter Start Date Encounter Closed Date Diagnosis/Indication Diagnosis SNOMED-CT Code Diagnosis ICD10 Code Diagnosis Note [id number] Terence stapleton MD [facility] [address] [place] [address] 09/10/2020 00:00:00 09/10/2020 13:24:11 [id number] MD BEBETO Ramon_[facility] Internal [facility] [address] [place] [address] 10/26/2020 00:00:00 10/26/2020 15:38:10 [id number] Terence stapleton MD [facility] [place] [facility] [address] [address] 01/26/2021 00:00:00 01/26/2021 20:34:41 [id number] Terence stapleton MD [facility] [address] [place] [address] 04/13/2021 00:00:00 04/13/2021 11:52:13 [id number] MD PAULINA [facility]on[facility] [address] [place] [address] 09/06/2021 00:00:00 09/06/2021 15:03:42 [id number] MD PAULINA [facility] [address] [address] 01/10/2022 00:00:00 01/10/2022 14:21:12 [id number] Terence stapleton MD [facility] [address] [address] 05/06/2022 00:00:00 05/06/2022 15:46:21 [id number] Terence stapleton MD [facility] [address] [address] 11/07/2022 13:58:49 11/07/2022 14:26:23 Acid reflux 111892500 K21.9 on omeprazole , she is aware of risks, benefits, side effects Type 2 natan betes mellitus without complication 971361977 E11.9 on victoza, metformin pt is aware of side effects, risks, benefitspt denies any personal or family history of MEN II or MTC, denies and personal history of pancreatit ispt knows to call the office if any severe n/v or abdominal pain DM eye exam and daily foot checks recommende d Hyperlipidemia 14600364 E78.5 on atorvastat in Nicotine dependence 5629 4008 F17.200 3 minutes spent with patient discussing risks, cessation options. Patient encouraged to quit. LDCT- 09/2021 Chest pain 21044913 R07. 9 She did see cardiology - Dr. Rivas has not done her echo or her stress Tran in the interim if pain recurs Chronic ob structive pulmonary disease 27575881 J44.9 on proair prn, didn't waste picker the Anoro, doesn't think she needs it Steatotic liver disease 645197293 K76.0 incidental ly noted on LDCT, declines any referral or liver u/s Multiple n odules of lung 863602389 R91.8 Next LDCT due 09/2022 History of malignant neoplasm of bladder 383229970 Z85.51 follows urology at [facility] Well woman health check declined 861207795 Z53.20 risks explained including missed cancer and Screening for malignant neoplasm of colon 888587211 Z12.11 Pt refuses screening colonoscop y but agrees to Cologuard. All risks explained to her, including that Cologuard may miss 8% of cancers.Sh betsy reports she has the box at home, encouraged her to do this Osteoporosis 52834264 M8 1.0 on alendronat eshe is aware to take with a full glass of water and not lie down for 60 min after taking on OTC calcium, vitamin d weight bearing exercise recommende d Heart murmur 55767454 R0 1.1 get re-estabis hed with cardiology as above Adult [facility] th examination 027811528 Z00.01 Depression screening 171 261071 Z13.31 Screening mammography 24 058618 Z12.31 Vitamin D deficiency 347 82274 E55.9 on OTC supplement [id number] Terence stapleton MD [facility] [address] [place] [address] 02/21/2023 14:02:58 02/21/2023 14:49:38 Transition of care 8212733111 105 Z75.8 History of total cystectomy 610026734 Z90.6 has upcoming appt with surgeon on MondayHH ordered Sepsis 02526900 A41.9 [facility]augther will call today to get her follow up appt scheduled Acid reflux 520387884 K2 1.9 on omeprazole , she is aware of risks, benefits, side effects Type 2 natan betes mellitus without complication 394829963 E11.9 on victoza, metformin pt is aware of side effects, risks, benefitspt denies any personal or family history of MEN II or MTC, denies and personal history of pancreatit ispt knows to call the office if any severe n/v or abdominal pain DM eye exam and daily foot checks recommende d Hyperlipidemia 09517858 E78.5 on atorvastat in Nicotine dependence 5629 4008 F17.200 3 minutes spent with patient discussing risks, cessation options. Patient encouraged to quit. LDCT- 09/2021- was ordered 10/2022 Chest pain 32169545 R07. 9 She did see cardiology - Dr. Rivas has not done her echo or her stress Tran in the interim if pain recurs Chronic ob structive pulmonary disease 58911370 J44.9 on proair prn, didn't waste picker the Anoro, doesn't think she needs it Steatotic liver disease 931399000 K76.0 incidental ly noted on LDCT, declines any referral or liver u/s Multiple n odules of lung 991768740 R91.8 Next LDCT due 09/2022 History of malignant neoplasm of bladder 120549292 Z85.51 follows urology at [facility] Well woman health check declined [id number] Z53.20 risks explained including missed cancer and Screening for malignant neoplasm of colon 624141636 Z12.11 Pt refuses screening colonoscop y but agrees to Cologuard. All risks explained to her, including that Cologuard may miss 8% of cancers.Sh e reports she has the box at home, encouraged her to do this was ordered 10/2022 Osteoporosis 93354181 M8 1.0 on alendronat eshe is aware to take with a full glass of water and not lie down for 60 min after taking on OTC calcium, vitamin d weight bearing exercise recommende d Screening mammography 24 793447 Z12.31 was ordered 10/2022 Vitamin D deficiency 347 34423 E55.9 on OTC supplement Muscle weakness 40615562 M62.81 she will benefit from walker to assist with safely completing her ADLs both in and out of the house Abdominal abscess 789193 08 K65.1 as above [id number] Terence stapleton MD [facility] [address] [facility] [place] [address] 04/20/2023 15:18:46 04/20/2023 16:21:10 Screening - NAD 646581258 Z13.9 C-scope: cologuard was ordered 11/07/2022 , [...] above Screening for malignant neoplasm of breast 727923406 Z12.39 Gynecologi c examination 70603769 Z01.419 Chronic ob structive pulmonary disease 56752293 J44.9 Seen on LDCTGet a referral to Dr Barrios Smoker 95984546 F17.200 Advised to quit smoking! LDCT 09/28/2021 : Emphysema, CAD Coronary arteriosclerosis 18951940 I25.10 Seen on LDCT, get a referral to cardiology Type 2 natan betes mellitus without complication 266443324 E11.9 On jardiance 25mg dailyOn metformin 500mg bidOn victozaGet labs Essential hypertension 05419768 I10 On lisinopril 2.5mg daily Hyperlipidemia 17864857 E78.5 On atorvastat in 40mg dailyGet labs Serum johny min B12 below reference range 590440866 R79.89 Vitamin D deficiency 347 00449 E55.9 Gastroesop hageal reflux disease without esophagitis 893984517 K21.9 On omeprazole Get an EGD done Malignant neoplasm of urinary bladder 629433217 C67.9 Dr Rodríguez urologyS/p surgeryNow has cath and bag Nausea 030611966 R11.0 On zorfran PRN Low back pain 446210309 M54.50 Get xrays, may need to see pain management Screening for malignant neoplasm of colon 871833583 Z12.11 Administra tion of influenza vaccine 51325484 Z23 Screening mammography 24 869090 Z12.31 [id number] Terence stapleton MD [facility] [address] [facility] [place] [address] 07/27/2023 11:50:21 07/27/2023 12:37:47 Screening - NAD 968670625 Z13.9 C-scope: cologuard was ordered 11/07/2022 , [...] ing of the above Gynecologi c examination 73300160 Z01.419 Chronic ob structive pulmonary disease 96727667 J44.9 LDCT 06/14/2023 : Next in one year Dr Barrios apt 07/31/2023 Smoker 10838493 F17.200 Advised to quit smoking! LDCT 09/28/2021 : Emphysema, CADLDCT 06/14/2023 : Next in one year Coronary arteriosclerosis 91902933 I25.10 Seen on LDCT, get a referral to cardiology Type 2 natan betes mellitus without complication 816408995 E11.9 On jardiance 25mg dailyOn metformin 500mg bid, will d/c this also as she has noted some low sugars and A1C is stable on 07/05/2023 Off the victozaGet labs Essential hypertension 02334492 I10 On lisinopril 2.5mg daily Hyperlipidemia 21602318 E78.5 On atorvastat in 40mg dailyDiet and exercise is neededGet labs Serum johny min B12 below reference range 165154069 R79.89 Get on B12 weekly for 4 weeks and then monthly for 3 months and repeat the labs Vitamin D deficiency 347 18735 E55.9 Gastroesop hageal reflux disease without esophagitis 782503688 K21.9 On omeprazole Get an EGD done Malignant neoplasm of urinary bladder 300171434 C67.9 Dr Rodríguez urologyS/p surgeryNow has cath and bag Nausea 920138122 R11.0 On zorfran PRN Low back pain 163974657 M54.50 Get xrays, may need to see pain management Xrays notd 06/14/2023 Screening for malignant neoplasm of colon 324117015 Z12.11 Hyperkalemia 33221581 E8 7.5 Repeat the labs Proteinuria 06535909 R80 .9 Thrombocytosis 8107319 D 75.839 Repeat the labs Hypothyroidism 44617953 E03.9 Get US thyroid and repeat the labsMay need to be on synthroid [id number] Christine Barrios MD [facility] Pul[facility] [address] [address] 07/31/2023 10:53:34 08/01/2023 09:00:04 Solitary nodule of lung 264695143 R91.1 Chronic cough 15307308 R 05.3 R06.00 T78.40XA D89.9 [id number] Gaby Stout MD [facility] [place] [address] [place] [address] 09/28/2023 11:28:55 09/29/2023 10:51:01 Thyroid nodule 520328909 E04.1 [id number] Terence stapleton MD [facility] [place] [address] [place] [address] 10/12/2023 14:59:09 10/12/2023 16:08:46 Screening - NAD 050165638 Z13.9 C-scope: cologuard was ordered 11/07/2022 , [...] ing of the above Gynecologi c examination 37045413 Z01.419 Chronic ob structive pulmonary disease 59784638 J44.9 LDCT 06/14/2023 : Next in one year Dr Barrios apt 07/31/2023 Smoker 35693039 F17.200 Advised to quit smoking! LDCT 09/28/2021 : Emphysema, CADLDCT 06/14/2023 : Next in one year Coronary arteriosclerosis 88693623 I25.10 ECHO 07/27/2023 : EF 55%Stress test 09/29/2023 : Negative Dr Graf 2023 : Next apt in 3 months Type 2 natan betes mellitus without complication 066018588 E11.9 On jardiance 25mg dailyOn metformin 500mg bid, will d/c this also as she has noted some low sugars and A1C is stable on 07/05/2023 Off the victozaGet labs Essential hypertension 28739052 I10 On lisinopril 2.5mg daily Hyperlipidemia 40650541 E78.5 On atorvastat in 40mg dailyDiet and exercise is neededGet labs Serum johny min B12 below reference range 207025824 R79.89 Repeat the labs Vitamin D deficiency 347 82076 E55.9 Gastroesop hageal reflux disease without esophagitis 697188523 K21.9 On omeprazole Get an EGD done Malignant neoplasm of urinary bladder 311312117 C67.9 Dr Rodríguez urologyS/p surgeryNow has cath and bag Nausea 721175561 R11.0 On zorfran PRN Low back pain 968414165 M54.50 Get xrays, may need to see pain management Xrays notd 06/14/2023 Screening for malignant neoplasm of colon 972047339 Z12.11 Hyperkalemia 04661911 E8 7.5 Repeat the labs Proteinuria 33553675 R80 .[address] Eligio Sanchez calcitriol On VIT DOn fosamax Thrombocytosis 1136492 D 75.839 Repeat the labs Hypothyroidism 46222289 E03.9 US thyroid 08/10/2023 : Get FNACGet on synthroid Adult heal th examination 545793092 Z00.00 Screening for disorder 977827975 Z13.9 Thyroid nodule 138959084 E04.1 Dr Stout 09/28/2023 to get FNAC [id number] Terence stapleton MD [facility] [address] [facility], [facility] [address] [place] [address] 02/15/2024 15:12:37 02/15/2024 16:04:44 Chronic obstructive pulmonary disease 28855477 J44.9 LDCT 06/14/2023 : Next in one year Dr Barrios apt 07/31/2023 Screening - NAD 92338129 3 Z13.9 C-scope: cologuard was ordered 11/07/2022 [...] ing of the above Gynecologi c examination 14723570 Z01.419 Smoker 30034614 F17.200 Advised to quit smoking! LDCT 09/28/2021 : Emphysema, CADLDCT 06/14/2023 : Next in one year Coronary arteriosclerosis 11721692 I25.10 ECHO 07/27/2023 : EF 55%Stress test 09/29/2023 : Negative Dr Graf 2023 : Next apt in 3 months Type 2 natan betes mellitus without complication 942877377 E11.9 On jardiance 25mg dailyOn metformin 500mg bid, was told d/c this also as she has noted some low sugars and A1C was stable on 07/05/2023 , however she is still taking thisOff the victozaGet labs Essential hypertension 68607150 I10 On lisinopril 2.5mg daily Hyperlipidemia 61880216 E78.5 On atorvastat in 40mg dailyDiet and exercise is neededGet labs Serum johny min B12 below reference range 519739062 R79.89 Repeat the labs Vitamin D deficiency 347 32998 E55.9 Gastroesop hageal reflux disease without esophagitis 752293958 K21.9 On omeprazole Get an EGD done Malignant neoplasm of urinary bladder 053476175 C67.9 Dr Rodríguez urologyS/p surgeryNow has cath and bag Nausea 787166176 R11.0 On zorfran PRN Low back pain 714258136 M54.50 Get xrays, may need to see pain management Xrays notd 06/14/2023 Screening for malignant neoplasm of colon 059301250 Z12.11 Proteinuria 25061307 R80 .[address] Eligio Sanchez calcitriol On VIT DOn fosamax Thrombocytosis 8951229 D 75.839 Repeat the labs Hypothyroidism 59927047 E03.9 US thyroid 08/10/2023 : Get FNACS/p bx: Neg 12/27/[address] Pineda et labs Screening for osteoporosis 326512034 Z13.820 Administra tion of influenza vaccine 34920158 Z23 [id number] Terence stapleton MD [facility] [address] [facility], [facility] [address] [place] [address] 06/13/2024 15:05:05 06/13/2024 16:32:42 Chronic obstructive pulmonary disease 21456664 J44.9 LDCT 06/14/2023 : Next in one year Dr Barrios apt 07/31/2023 Screening - NAD 53063542 3 Z13.9 C-scope: cologuard was ordered 11/07/2022 [...] ing of the above Gynecologi c examination 13089996 Z01.419 Smoker 20531972 F17.200 Advised to quit smoking! LDCT 09/28/2021 : Emphysema, CADLDCT 06/14/2023 : Next in one year Coronary arteriosclerosis 14854336 I25.10 ECHO 07/27/2023 : EF 55%Stress test 09/29/2023 : Negative Dr Graf 2023 : Next apt in 3 months Type 2 natan betes mellitus without complication 677029215 E11.9 On jardiance 10mg dailyOn metformin 500mg bid, was told d/c this also as she has noted some low sugars and A1C was stable on 07/05/2023 , however she is still taking thisOff the [employer] labsMore diet and exercise Essential hypertension 64338597 I10 On lisinopril 2.5mg daily Hyperlipidemia 13698538 E78.5 On atorvastat in 40mg dailyDiet and exercise is neededGet labs Serum johny min B12 below reference range 748052747 R79.89 Repeat the labs Vitamin D deficiency 347 03287 E55.9 Gastroesop hageal reflux disease without esophagitis 206485942 K21.9 On omeprazole Get an EGD done Malignant neoplasm of urinary bladder 455356450 C67.9 Dr Rodríguez urologyS/p surgeryNow has cath and bag Nausea 495365552 R11.0 On zorfran PRN Low back pain 797616926 M54.50 Get xrays, may need to see pain management Xrays notd 06/14/2023 Screening for malignant neoplasm of colon 136829981 Z12.11 Proteinuria 20031237 R80 .[address] Eligio Sanchez calcitriol On VIT DOn fosamax Thrombocytosis 1859247 D 75.839 Repeat the labsAlso refer to hematology Hypothyroidism 08328243 E03.9 US thyroid 08/10/2023 : Get FNACS/p bx: Neg 12/27/[address] Pineda et labs Screening for osteoporosis 086154657 Z13.820 Screening mammography 24 888534 Z12.31 Cigarette smoker 4022898 7 F17.180 [id number] Terence stapleton MD [facility] Internal [facility] [address] [facility], [address] [place] [address] 09/12/2024 11:21:52 09/12/2024 12:16:54 Chronic obstructive pulmonary disease 61734088 J44.9 LDCT 06/14/2023 : Next in one year Dr Sophie newman 07/31/2023 Screening - NAD 20375448 3 Z13.9 C-scope: cologuard was ordered 11/07/2022 [...] ing of the above Gynecologi c examination 25917757 Z01.419 Smoker 62951789 F17.200 Advised to quit smoking! counselled regarding her smoking, she states that she still smokes 1PPDToday 09/12/2024 she has declined any NRT or chantix, states that she did take chantix in the past and it made her feel weird LDCT 09/28/2021 : Emphysema, CADLDCT 06/14/2023 : Next in one yearLDCT 08/17/2024 , next in 3 months Coronary arteriosclerosis 42157927 I25.10 ECHO 07/27/2023 : EF 55%Stress test 09/29/2023 : Negative Dr Graf 2023 : Next apt in 3 months Now wants to see Dr Del Valle [facility], referral was provided to [facility] 09/12/2024 Type 2 natan betes mellitus without complication 023372153 E11.9 On jardiance 10mg dailyOn metformin 500mg bid, was told d/c this also as she has noted some low sugars and A1C was stable on 07/05/2023 , however she is still taking thisOff the [employer] labsMore diet and exercise Essential hypertension 47091831 I10 On lisinopril 2.5mg daily Hyperlipidemia 76194071 E78.5 On atorvastat in 40mg dailyDiet and exercise is neededGet labs Serum johny min B12 below reference range 120336273 R79.89 Repeat the labs Vitamin D deficiency 347 78815 E55.9 Gastroesop hageal reflux disease without esophagitis 864139969 K21.9 On omeprazole Get an EGD done Malignant neoplasm of urinary bladder 493413444 C67.9 Dr Rodríguez urologyS/p surgeryNow has cath and bag Nausea 810265934 R11.0 On zorfran PRN Low back pain 452330568 M54.50 Get xrays, may need to see pain management Xrays notd 06/14/2023 Screening for malignant neoplasm of colon 535492785 Z12.11 Proteinuria 28073041 R80 .[address] Eligio Sanchez calcitriol On VIT DOn fosamax Thrombocytosis 0114708 D 75.839 Repeat the labsAlso refer to hematology Hypothyroidism 69476068 E03.9 US thyroid 08/10/2023 : Get FNACS/p bx: Neg 12/27/[address] Pineda et labs Screening for osteoporosis 622486336 Z13.820 Screening mammography 24 786983 Z12.31 Chronic ki dney disease 534549927 N18.[address] Eligio FORD Postmenopausal state 764 54422 Z78.0 [id number] Christine Barrios MD [facility] Pulmonolo gy [address] [address] 10/17/2024 11:35:18 10/17/2024 14:02:32 Solitary nodule of lung 215926120 R91.1 R91.8 Chronic cough 96449353 R 05.3 R06.00 T78.40XA D89.9 Exposure t o Mycobacterium tuberculosis 002828950 Z20.1 Health Concerns Section Related Observation LastModified by Organization Detai ls LastModified Time None Recorded Concern Status LastModified by Organization Details LastModified Time None Recorded Advance Directives Directive N: Patient given information . Payers Insurance Date Sequence Insurance Name Policy Number Policy Terry Covered Member ID Terry Member ID Guarantor Name 10/21/2024 1 [facility] (MEDICARE REPLACEMENT/A DVANTAGE - PPO) [id number] Dea Perez [id number] Dea Perez 10/21/2024 2 [place] [facility] Dea Perez [id number] Dea Perez 10/17/2024 1 [employer] (MEDICARE REPLACEMENT/A DVANTAGE - HMO) Dea Perez [id number] Dea Perez 10/17/2024 2 [place] [facility] AID Dea Perez [id number] eDa Perez 10/17/2024 1 [employer] - DUAL ELIGIBLE - GOLD PLUS [employer]TE[employer]ATED (MEDICARE - HMO) Dea Perez [id number] Dea Perez Notes Date Note Type Note Provider Name and Address Organization Details Recorded Time 4 text/html OV 04/20/2023: Here to establish [...] here with her daughter Joyce Barber MD [address] [place] [address], [address], [facility] [employer] [facility] 10/12/2023 16:33:38 4 text/html OV 04/20/2023: Here [...] here with Joyce Barber MD [address], [facility] [address], [place], [address], [facility] [employer] [facility] 02/19/2024 18:30:08 5 text/html OV 04/20/2023: Here [...] are not yet reported Terence Barber MD [address], [facility] [address], [place], [address], [facility] [employer] [facility] 06/13/2024 18:30:21 5 text/html OV 04/20/2023: Here [...] well today, she did do the labs Terence Barber MD [address], [address], [place], [address], [place] [facility] [employer] [facility] 09/12/2024 12:24:37 5 text/html Primary care/Referring provider: Terence Barber MD Patient is here to go [...] noPalpitations: noHeartburn: noEdema: no Modified [employer] (mMRC) Dyspnea Scale - Grade 1Grade 0 [...] slight chance of dozing. Christine Barrios MD [address] [place] [address], [place] [address], [place], [address], [place] [employer] [facility] 10/17/2024 12:20:58 OBGyn Episode No OBEpisode recorded.
--- OUTSIDE RECORDS SUMMARY | 2024-10-31 10:53 | XMS_ITS | Patient Health Record ---
Author Organization [facility] Address [address] [place] [address] Care Team Providers Care Machine Operator Hay Stacker Name Role Phone Shubham Del Valle Unavailable [phone] Reason For Referral No Information Medications Medication SIG (Take, Route, Frequency, Duration) Notes Start Date End Date Status Sodium Bicarbonate 650 MG TAKE 2 TABLETS BY MOUTH TWICE A DAY DIRECTED for 90 Active Problems Problem Type SNOMED Code ICD Code Onset Dates Problem Status W/U Status Risk Notes Problem Anxiety disorder (758932228) Anxiety disorder, unspecified (F41.9) Active confirmed Problem Edema (96360694) Edema, unspecified (R60.9) Active confirmed Problem Proteinuria (46041407) Other proteinuria (R80.8) Active confirmed Problem Essential hypertension (17009979) Essential hypertension (I10) Active confirmed Problem Chronic kidney disease stage 3A (disorder) (040748849) Chronic kidney disease, stage 3a (N18.31) Active confirmed Encounters Encounter Location Date Provider Diagnosis [facility] [address] [place] [address] 12/27/2023 Shubham Del Valle Chronic kidney disease, stage 3a N18.31 ; Essential hypertension I10 ; Other proteinuria R80.8 ; Edema, unspecified R60.9 and Anxiety disorder, unspecified F41.9 [facility] [address] [place] [address] 12/27/2023 Shubham Del Valle Assessments Encounter Date [...]
--- OUTSIDE RECORDS SUMMARY | 2024-10-31 10:54 | XMS_ITS ---
Author Organization [facility] Address [address] [facility] [address] [facility] [address] [place] [address] Care Team Providers Care Administrator Of Home Health Name Role Phone Eliigo Shubham Unavailable [phone] Encounters Encounter Location Date Provider Diagnosis [place] [facility] [address] [facility] [address] [place] [address] 07/17/2024 Shubham Del Valle Plan Of Treatment Next Appt Details Provider Name:Shubham Eligio , 01/01/2025 02:45:00 PM, [address] [facility], [facility] [address], [place], [address], Progress Notes * MARCY BARKEROB:[birth year] (69 yo F)Acc No.[id number]:07/17/2024 Progress Notes Patient: BINA DESHPANDE Provider: Angela PATRICIA MD, Vince.Avery.C.P, F.A.S.N. :1955 A ge:68 Y S ex:Female Date:07/17/2024 Address:[address] [place] [address] Subjective: * Chief Complaints: * * Medical History: Objective: * Vitals: Assessment: Plan: * Treatment: * Billing Information: * Visit Code: * Procedure Codes: * Electronic signature of Mary Del Valle MD on 10/31/2024 at 10:53 AM CDT Sign off status: Pending * Provider: Angela PATRICIA MD, Vince.Avery.C.P, F.A.S.N. Date: 07/17/2024 Generated for Printing/Faxing/eTransmitting on: 0 10/31/2024 10:53 AM CDT
--- NOTE | 2024-10-31 12:03 | WPDPFTINT ---
PFT Procedure Performed PFT Procedure Performed Spirometry with Pre/Post Bronchodilator Plethysmography (Lung Vol) Diffusing Cap (DLCO) Flow Vol Loop PFT Interpretation This is a pulmonary function test with pre and post-bronchodilator spirometry, plethysmography and diffusing capacity. The test was performed and results interpreted in accordance with the 2019 and 2005 ATS/ERS Task Force guidelines respectively using the Global Lung Function Initiative-2012 reference equations. Patient demonstrated good effort and cooperation. Reproducibility criteria were met. The quality of the pre bronchodilator spirometry maneuver was Grade A and post bronchodilator spirometry maneuver was Grade A. Findings: Spirometry: There is decreased maximal expiratory airflow at low lung volumes with concave expiratory flow tracing. The contour the inspiratory flow tracing is normal. The pre bronchodilator FVC is 2.04 L, 68% predicted. The pre bronchodilator FEV1 is 1.33 L, 57% predicted. The pre bronchodilator FEV1: FVC ratio is 65%. The post bronchodilator FVC is 2.30 L, representing a 13% increase. The post bronchodilator FEV1 is 1.58, representing a 19% increase. The post bronchodilator FEV1: FVC ratio is 69%. Plethysmography: The total lung capacity is 4.58 L, 88% predicted. The functional residual capacity is 2.76 L, 93% predicted. The residual volume is 2.38 L, 107% predicted. Diffusing capacity: The diffusing capacity unadjusted for hemoglobin and carboxyhemoglobin is 13.6, 65% predicted. The diffusing capacity adjusted for alveolar volume is 3.76, 88% predicted. Impression: There is a moderately severe obstructive abnormality. There is significant improvement after inhaling a single dose of albuterol. The lung volumes are normal. The diffusing capacity unadjusted for hemoglobin and carboxyhemoglobin is mildly decreased and normalizes when adjusted for alveolar volume. There are no prior studies for comparison
== END 2024-10-31 10:02 | disposition home or self-care (01) ==
PROVIDERS: PCP Internal Medicine; Visit Provider Internal Medicine Pulmonary Disease
DX: J44.9 Chronic obstructive pulmonary disease, unspecified (principal); R05.3 Chronic cough
CPT/HCPCS: 94060; 94726; 94729

== ENCOUNTER 2024-11-08 06:58 | Outpatient (CLI) | payer MEDICARE, MEDICAID, SELFPAY ==
--- NOTE | ~2024-11-08 | CT_ITS ---
CT of the Abdomen and Pelvis: Indication: Urinary bladder neoplasm Technique: 2.5 mm axial scans were obtained through the abdomen and pelvis following intravenous adm inistration of 100 cc of Omnipaque 350. Dose reduction technique was used on this scan by utilizing a utomated exposure control and iterative reconstruction technique. The dose-length product (DLP) was 2 66.76 mGy-cm. COMPARISON: 623 Findings: Scans through the lung bases are unremarkable. The liver, spleen, pancreas, gallbladder, adrenals and left kidney are within normal limits. Right ki dney somewhat atrophic with moderate hydroureteronephrosis. No evidence of aortic aneurysm. No lymph adenopathy. No bowel obstruction or bowel wall thickening. There is no evidence to suggest acute appendicitis. Images through the pelvis were performed. Status post cystectomy with ileal conduit. No pelvic mass e vident. No ascites. Parastomal hernia about the ileal conduit contains several small bowel loops. Impression: No evidence for active malignancy or metastatic disease. Status post cystectomy with ileal conduit. Somewhat atrophic right kidney with moderate right hydroureteronephrosis. Parastomal hernia containing several small bowel loops. No bowel obstruction. Reviewed, dictated and finalized at [facility]. Impression: No evidence for active malignancy or metastatic disease. Status post cystectomy with ileal conduit. Somewhat atrophic right kidney with moderate right hydroureteronephrosis. Parastomal hernia containing several small bowel loops. No bowel obstruction.
--- OUTSIDE RECORDS SUMMARY | 2024-11-08 07:01 | XMS_ITS | Clinical Summary ---
Author Organization [facility] [employer] [address]ai Address [address] [place] [address] Care Team Providers Care Foreign Agent Name Role Phone Clara Barber MD Primary [...] Encounters Date Type Department Care Team Description 11/04/2024 2:30 PM CDT Office Visit [facility] Oncology and Hematology - [address] [place] [address] Tommie Williamson MD Iron deficiency anemia, unspecified iron deficiency anemia type (Primary Dx); Malignant neoplasm of urinary bladder, unspecified site (CMS/HCC) 10/31/2024 Orders Only [facility] Oncology and Hematology - [address] [place] [address] Tommie Williamson MD 10/23/2024 Orders Only [facility] Oncology and Hematology [address] [place] [address] Tommie Williamson MD 10/15/2024 External Device Data STL ABSTRACTION Provider, Abstract 10/09/2024 External Device Data STL ABSTRACTION Provider, Abstract 10/08/2024 External Device Data STL ABSTRACTION Provider, Abstract 09/20/2024 Abstract [facility] Oncology and Hematology [address] [place] [address] Tommie Williamson MD 09/20/2024 Abstract [facility] Oncology and Hematology [address] [place] [address] Tommie Williamson MD from Last 3 Months Family History Medical [...] Sign Reading Time Taken Comments Blood Pressure 111/65 11/04/2024 2:39 PM CDT Pulse 83 11/04/2024 2:39 PM CDT Temperature 36.6 C (97.9 F) 11/04/2024 2:39 PM CDT Respiratory Rate 15 11/04/2024 2:39 PM CDT Oxygen Saturation 95% 11/04/2024 2:39 PM CDT Inhaled Oxygen Concentration - - Weight 60.5 kg (133 lb 6.4 oz) 11/04/2024 2:39 P M CDT Height 165.1 cm (5' 5) 11/15/2023 10:49 AM CDT Body Mass Index 22.2 11/15/2023 10:49 AM CDT Plan of Treatment Upcoming Encounters Date Type Department Care Team (Late st Contact Info) Description 11/14/2024 4:30 PM CDT Telephone Check Up [facility] Oncology and Hematology [facility] [address] [place] [address] Tommie Williamson MD [id number] [place] [phone] 01/10/2025 12:30 PM CDT Office Visit [facility] Oncology and Hematology [facility] [address] [place] [address] Tommie Williamson MD [email or web address] [place] [id number] Health Maintenance Due Date Last Done Comments [...] years 1-dose series) 2015 OSTEOPOROSIS SCREENING 08/15/2020 COVID-19 Vaccine (5 - 2023-2 5 season) 2024 04/27/2022, 05/08/2021, 08/19/2020, Additional history exists DIABETES HBA1C Q 6 MONTHS 08/18/2024 02/19/2024 PNEUMOCOCCAL VACCINE 50+ YEARS Completed 05/06/2022 INFLUENZA VACCINE Completed 02/15/2024, , 04/27/2022, Additional history exists Procedures Procedure Name Priority Date/Time Associated Diagnosis Comments JAK2 EXON 12 MUTATION ANALYSIS Routine 10/23/2024 4:15 PM CDT CBC WITH DIFFERENTIAL Routine 10/23/2024 3:23 PM CDT from Last 3 Months Results * JAK2 EXON 12 MUTATION ANALYSIS (10/23/2024 4:15 PM CDT) Blood Tommie Williamson MD HEMATOLOGY ORDERABLES COM Final Result * CBC WITH DIFFERENTIAL (10/23/2024 3:23 PM CDT) Blood Tommie Williamson MD HEMATOLOGY ORDERABLES Final Res ult from Last 3 Months Insurance MEDICAID [place] Care Teams Foreign Agent Relationship Specialty Start Date End Date Clara Barber MD PCP - General Internal Medicine 11/01/23
--- OUTSIDE RECORDS SUMMARY | 2024-11-08 07:01 | XMS_ITS ---
Author Organization [facility] Address [address] [place] [address] Care Team Providers Care Security Intelligence Analyst Name Role Phone Shubham Del Valle Unavailable [phone] Problems Problem Type SNOMED Code ICD Code Onset Dates Problem Status W/U Status Risk Notes Problem Chronic kidney disease stage 3A (disorder) (992457836) Chronic kidney disease, stage 3a (N18.31) Active confirmed Problem Edema (78204996) Edema, unspecified (R60.9) Active confirmed Problem Essential hypertension (97450344) Essential hypertension (I10) Active confirmed Problem Anxiety disorder (570178713) Anxiety disorder, unspecified (F41.9) Active confirmed Problem Proteinuria (58806337) Other proteinuria (R80.8) Active confirmed Encounters Encounter Location Date Provider Diagnosis [place] [facility] [address] [address] 08/11/2023 Shubham Del Valle Chronic kidney disease, [...] * Pasha BARKEROB:[birth year] (69 yo M)Acc No.[id number]:08/11/2023 Progress Notes Patient: Dea DESHPANDE Provider: Angela PATRICIA MD, VernellP, F.A.S.N. :1955 A ge:67 Y S ex:Male Date:08/11/2023 Address:[address] [place], [place] [id number] Subjective: * Chief Complaints: * * Medical History: Objective: * Vitals: Assessment: * Assessment: 1. C hronic kidney disease, stage 3a - N18.31 2 . E toby, unspecified - R60.9 3 . E ssential hypertension - I10 4 . A nxiety disorder, unspecified - F41.9 5 . O ther proteinuria - R80.8 Plan: * Treatment: * Billing Information: * Visit Code: 06276 Office Visit, New Pt., Level 5. * Procedure Codes: * Electronic signature of Mary Del Valle MD on 11/08/2024 at 07:00 AM CDT Sign off status: Pending * Provider: Angela PATRICIA MD, Vince.Avery.AshleyP, F.A.S.N. Date: 08/11/2023 Generated for Printing/Faxing/eTransmitting on: 0 11/08/2024 07:00 AM CDT
--- OUTSIDE RECORDS SUMMARY | 2024-11-08 07:01 | XMS_ITS ---
Author Organization [facility] Address [address] [place] [address] Care Team Providers Care Grain Sampler Name Role Phone Eligio Shubham Unavailable [phone] Encounters Encounter Location Date Provider Diagnosis [place] [facility] [address] [facility] [address] [place] [address] 12/27/2023 Shubham Del Valle Chronic kidney disease, [...] * Pasha BARKEROB:[birth year] (69 yo M)Acc No.[id number]:12/27/2023 Progress Notes Patient: Dea DESHPANDE Provider: Angela PATRICIA MD, F.A.C.P, F.A.S.N. :1955 A ge:68 Y S ex:Male Date:12/27/2023 Address:[address] [place], [place] [id number] Subjective: * Chief Complaints: * * Medical History: Objective: * Vitals: Assessment: * Assessment: 1. C hronic kidney disease, stage 3a - N18.31 (Primary) 2 . E ssential hypertension - I10 3 . O ther proteinuria - R80.8 4 . E toby, unspecified - R60.9 5 . A nxiety disorder, unspecified - F41.9 Plan: * Treatment: * Billing Information: * Visit Code: 00654 Office Visit, Est Pt., Level 4. * Procedure Codes: * Electronic signature of Mary Del Valle MD on 11/08/2024 at 07:01 AM CDT Sign off status: Pending * Provider: Angela PATRICIA MD, F.A.C.P, F.A.S.N. Date: 12/27/2023 Generated for Printing/Faxing/eTransmitting on: 11/08/2024 07:01 AM CDT
--- OUTSIDE RECORDS SUMMARY | 2024-11-08 07:01 | XMS_ITS ---
Author Organization [facility] Address [address] [facility] [address] [facility] [address] [place] [address] Care Team Providers Care High Pressure Firer Name Role Phone Eligio Shubham Unavailable [phone] Encounters Encounter Location Date Provider Diagnosis [place] [facility] [address] [facility] [address] [place] [address] 07/19/2024 Shubham Del Valle Plan Of Treatment Next Appt Details Provider Name:Shubham Eligio , 01/01/2025 02:45:00 PM, [address] [facility], [facility] [address], [place], [address], Progress Notes * MARCY BARKEROB:[birth year] (69 yo F)Acc No.[id number]:07/19/2024 Progress Notes Patient: BINA DESHPANDE Provider: Angela PATRICIA MD, Vince.Avery.C.P, F.A.S.N. :1955 A ge:68 Y S ex:Female Date:07/19/2024 Address:[address] [place] [address] Subjective: * Chief Complaints: * * Medical History: Objective: * Vitals: Assessment: Plan: * Treatment: * Billing Information: * Visit Code: * Procedure Codes: * Electronic signature of Mary Del Valle MD on 11/08/2024 at 07:01 AM CDT Sign off status: Pending * Provider: Angela PATRICIA MD, Vince.Avery.C.P, F.A.S.N. Date: 07/19/2024 Generated for Printing/Faxing/eTransmitting on: 11/08/2024 07:01 AM CDT
--- OUTSIDE RECORDS SUMMARY | 2024-11-08 07:01 | XMS_ITS | Encounter Summary ---
Author Organization [employer] [facility] , [facility] Address [address] [facility] [place] [address] Phone Care Team Providers Care Laboratory Inspector Name Role Phone Vanna Dave Primary Care Provider Unava ilable Reason for Visit * Reason Comments Med Refill Encounter Details Date Type Department Care Team (Late st Contact Info) Description 08/30/2023 Refill [place] [employer] [facility], [facility] [address] [facility] 15 [place] [address] João De Leon, [address] [facility] 1 [place] [address] Social History Tobacco Use Types [...] on filedocumented in this encounter Care Teams Laboratory Inspector Relationship Specialty Start Date End Date Vanna Dave FNP-C PCP - General Nurse Practitioner 02/07/22 documented as of this encounter
--- OUTSIDE RECORDS SUMMARY | 2024-11-08 07:01 | XMS_ITS ---
Author Organization [facility] Address [address] [facility] [address] [facility] [address] [place] [address] Care Team Providers Care Mems Process Engineer Name Role Phone Eligio Shubham Unavailable [phone] Medications Medication SIG (Take, Route, Fr equency, Duration) Notes Start Date End Date Status Calcitriol 0.25 MCG TAKE 1 CAPSULE BY MO UTH EVERY DAY FOR 90 DAYS for 90 Active Jardiance 10 MG TAKE 1 TABLET BY REESE TH EVERY DAY for 90 Active Problems Problem Type SNOMED Code ICD Code Onset Dates Problem Status W/U Status Risk Notes Problem Tobacco use (018401705) Tobacco use (Z72.0) Active confirmed Problem Hypo-osmolality and or hyponatremia (440252977) Hypo-osmolality and hyponatremia (E87.1) Active confirmed Problem Hyperkalemia (21933386) Hyperkalemia (E87.5) Active confirmed Encounters Encounter Location Date Provider Diagnosis [place] [facility] [address] [facility] 15 [place] [address] 09/25/2024 Shubham Del Valle Chronic kidney disea [...] Name:Shubham Eligio , 01/01/2025 02:45:00 PM, [address] [facility] 15, [place], [place], [facility], Progress Notes * MARCY BARKEROB:[birth year] (69 yo F)Acc No.[id number]:09/25/2024 Progress Notes Patient: BINA DESHPANDE Provider: Angela PATRICIA MD, F.A.C.P, F.A.S.N. :1955 A ge:69 Y S ex:Female Date:09/25/2024 Address:[address] [place] [address] Subjective: * Chief Complaints: * * Medical [...] Treatment: * Billing Information: * Visit Code: 39742 Office Visit, Est Pt., Level 4. * Procedure Codes: * Electronic signature of Mary Del Valle MD on 11/08/2024 at 07:01 AM CDT Sign off status: Pending * Provider: Angela PATRICIA MD, F.A.C.P, F.A.S.N. Date: 0 09/25/2024 Generated for Printing/Faxing/eTransmitting on: 0 11/08/2024 07:01 AM CDT
--- OUTSIDE RECORDS SUMMARY | 2024-11-08 07:02 | XMS_ITS | Data Portability ---
Author Organization [facility] TAYMary Ann [facility] Address [address] [place] [address] Assessment No assessment recorded. Plan of Treatment Reminders Order Date Submit Date Provider Last Modified By Organization Details Last Modified Time Details Appointments None recorded. Lab culture, urine 2017 018 CHITO MIK, [address] [place] [address], [address], [place], [address], 8 15:15:41 HbA1c (hemoglobi n A1c), blood 2017 018 CHITO MIK, [address] [place] [address], [address], [place], [address], 8 13:11:53 CMP, serum or plasma 2017 018 CHITO MIK, [address] [place] [address], [address], [place], [address], 8 13:11:52 lipid panel, serum 2017 018 CHITO LABTITA, [address] [place] [address], [address], [place], [address], 8 13:11:53 microalbum in, urine 2017 018 CHITO MIK, [address] [place] [address], [address], [place], [address], 8 13:11:54 TSH + free T4, serum 2017 018 [facility], [address], [address], [place], [address], 8 13:11:52 Referral diabetic ophthalmol ogy referral - Please call patient to schedule appt. Thank you 2017 018 [email or web address] Jamey Dewitt MD, [address], [place], [address], 8 17:02:12 urologist referral - Please call patient to schedule appt. Thank you 2017 018 [email or web address] Not available 8 10:38:52 Procedures None recorded. Surgeries None recorded. Imaging LDCT, chest, for lung cancer screening 2017 018 [facility] [[email or web address] ([facility]), [address] [facility], [place], [address], 8 15:52:43 Medication Orders phenazopyr idine 200 mg tablet 2017 018 [email or web address] [id number], [address], [place], [address], 8 16:12:34 ciprofloxa ginny 500 mg tablet 2017 018 [email or web address] [id number], [address], [place], [address], 8 16:12:34 Chantix Starting Month Box 0.5 mg (11)-1 mg (42) tablets in dose pack 2017 018 [email or web address] Not available 8 16:12:34 Blood Glucose Test strips 2017 018 INTERFACE [id number], [address], [place], [address], 8 16:13:29 metformin 500 mg tablet 2017 018 INTERFACE [id number], [address], [place], [address], 8 12:21:37 alcohol swabs 2017 018 INTERFACE [id number], [address], [place], [address], 8 12:21:36 atorvastat in 10 mg tablet 2017 018 INTERFACE [id number], [address], [place], [address], 8 12:21:36 Patient TargetsNo targets recorded. Patient [...] uIU/m L 0.450- 4.500 Not Available [facility] ([facility]) [address] [place], [address], 09/06/2017 13:11:52 09/06/19 18 09/06/2017 TSH + free T4, serum T4,free(dire ct) 1.00 NG/dL 0.82-1 .77 Not Available [facility] ([facility]) [address] [place], [address], 09/06/2017 13:11:52 09/06/19 18 09/06/2017 CMP, serum or plasm a glucose 161 mg/dL 65-99 above high normal Not Available [facility] ([facility]) [address] [facility], [place], [address], 09/06/2017 13:11:52 09/06/19 18 09/06/2017 CMP, serum or plasm a BUN 11 mg/dL 8-27 Not Available [facility] ([facility]) [address] [place], [address], 09/06/2017 13:11:52 09/06/19 18 09/06/2017 CMP, serum or plasm a creatinine 0.73 mg/dL 0.57-1 .00 Not Available [facility] ([facility]) [address] [facility], [place], [address], 09/06/2017 13:11:52 09/06/19 18 09/06/2017 CMP, serum or plasm a eGFR if nonafricn AM 89 mL/mi n/1.7 3 >59 Not Available [facility] ([facility]) [address] [facility], [place], [address], 09/06/2017 13:11:52 09/06/19 18 09/06/2017 CMP, serum or plasm a eGFR if africn AM 102 mL/mi n/1.7 3 >59 Not Available [facility] ([facility]) [address] [facility], [place], [address], 09/06/2017 13:11:52 09/06/19 18 09/06/2017 CMP, serum or plasm a BUN/creatini ne ratio 15 12-28 Not Available [facility] [address] [place], [address], 09/06/2017 13:11:52 09/06/19 18 09/06/2017 CMP, serum or plasm a sodium 141 mmol/ L 134-14 4 Not Available [facility] ([facility]) [address] [place], [address], 09/06/2017 13:11:52 09/06/19 18 09/06/2017 CMP, serum or plasm a potassium 4.7 mmol/ L 3.5-5. 2 Not Available [facility] ([facility]) [address] [place], [address], 09/06/2017 13:11:52 09/06/19 18 09/06/2017 CMP, serum or plasm a chloride 104 mmol/ L 96-106 Not Available [facility] ([facility]) [address] [place], [address], 09/06/2017 13:11:52 09/06/19 18 09/06/2017 CMP, serum or plasm a carbon dioxide, total 20 mmol/ L 18-29 Not Available [facility] ([facility]) [address] [place], [address], 09/06/2017 13:11:52 09/06/19 18 09/06/2017 CMP, serum or plasm a calcium 9.9 mg/dL 8.7-10 .3 Not Available [facility] ([facility]) [address] [place], [address], 09/06/2017 13:11:52 09/06/19 18 09/06/2017 CMP, serum or plasm a protein, total 7.3 g/dL 6.0-8. 5 Not Available [facility] ([facility]) [address] [place], [address], 09/06/2017 13:11:52 09/06/19 18 09/06/2017 CMP, serum or plasm a albumin 4.5 g/dL 3.6-4. 8 Not Available [facility] ([facility] [address] [place], [address], 09/06/2017 13:11:52 09/06/19 18 09/06/2017 CMP, serum or plasm a globulin, total 2.8 g/dL 1.5-4. 5 Not Available [facility] ([facility] [address] [place], [address], 09/06/2017 13:11:52 09/06/19 18 09/06/2017 CMP, serum or plasm a A/G ratio 1.6 1.2-2. 2 Not Available [facility] ([facility]) [address] [facility] [place] [place], [address], 09/06/2017 13:11:52 09/06/19 18 09/06/2017 CMP, serum or plasm a bilirubin, total 0.2 mg/dL 0.0-1. 2 Not Available [facility] ([facility]) [address] [facility] [place] [place], [address], 09/06/2017 13:11:52 09/06/19 18 09/06/2017 CMP, serum or plasm a alkaline phosphatase 102 IU/L 39-117 Not Available [facility] [address] [place], [address], 09/06/2017 13:11:52 09/06/19 18 09/06/2017 CMP, serum or plasm a AST (SGOT) 14 IU/L 0-40 Not Available [facility] ([facility]) [address] [facility] [place] [place], [address], 09/06/2017 13:11:52 09/06/19 18 09/06/2017 CMP, serum or plasm a ALT (SGPT) 17 IU/L 0-32 Not Available [facility] ([facility]) [address] [place], [address], 09/06/2017 13:11:52 09/06/19 18 09/06/2017 lipid panel , serum cholesterol, total 251 mg/dL 100-19 9 above high normal Not Available [facility] ([facility]) [address] [facility] [place] [place], [address], 09/06/2017 13:11:53 09/06/19 18 09/06/2017 lipid panel , serum triglyceride s 334 mg/dL 0-149 above high normal Not Available [facility] ([facility]) [address] [place], [address], 09/06/2017 13:11:53 09/06/19 18 09/06/2017 lipid panel , serum HDL cholesterol 27 mg/dL >39 below low normal Not Available [facility] [address] [place], [address], 09/06/2017 13:11:53 09/06/19 18 09/06/2017 lipid panel , serum VLDL cholesterol marian 67 mg/dL 5-40 above high normal Not Available [facility] ([facility] [address] [place], [address], 09/06/2017 13:11:53 09/06/19 18 09/06/2017 lipid panel , serum LDL cholesterol calc 157 mg/dL 0-99 above high normal Not Available [facility] ([facility]) [address] [place], [address], 09/06/2017 13:11:53 09/06/19 18 09/06/2017 lipid panel , serum comment: PUBLIC RECORDS OFFICER Not Available [facility] ([facility]) [address] [place], [address], 09/06/2017 13:11:53 09/06/19 18 09/06/2017 lipid panel , serum LDL/HDL ratio 5.8 ratio 0.0-3. 2 above high normal LDL/H DL Ratio Men Women 1/2 Avg.R isk 1.0 1.5 Avg.R isk 3.6 3.2 2X Avg.R isk 6.2 5.0 3X Avg.R isk 8.0 6.1 Not Available [facility] ([facility]) [address] [place], [address], 09/06/2017 13:11:53 09/06/19 18 09/06/2017 HbA1c (hemo globi n A1c), blood hemoglobin A1C 7.3 % 4.8-5. 6 above high normal Pre-d iabet es: 5.7 - 6.4 Diabe dick: >6.4 Glyce escobar contr ol for adult s with diabe dick: <7.0 Not Available [facility] ([facility]) [address] [facility], [place], [address], 09/06/2017 13:11:53 09/06/19 18 09/06/2017 micro album in, urine albumin, urine 17.0 ug/mL not estab. Not Available [facility] ([facility]) [address] [facility], [place], [address], 09/06/2017 13:11:54 09/06/19 18 09/06/2017 diabe dick patie nt educa tion pdf image . Not Available [facility] ([facility]) [address] [facility], [place], [address], 09/06/2017 13:11:54 02/13/20 18 02/16/2018 cultu re, urine urine culture,comp rehensive Final report abnormal Not Available [facility] ([facility]) [address] [facility], [place], [address], 02/16/2018 15:15:41 02/13/20 18 02/16/2018 cultu re, [...] Imipe nem, Merop enem Not Available [facility] ([facility]) [address] [facility], [place], [address], 02/16/2018 15:15:41 02/13/20 18 02/16/2018 cultu re, [...] R Vanco mycin S Not Available [facility] ([facility]) [address] [facility], [place], [address], 02/16/2018 15:15:41 09/30/19 18 09/29/2017 LDCT, chest , for lung cance r scree brennon No observ ation record ed. [address] ([facility]) [address] [place], [address], 10/17/2017 15:52:44 12/01/19 18 11/30/2017 CT, abdom en + pelvi s, w/wo contr ast No observ ation record ed. [address] (Imaging) [address] [place], [address], 12/13/2017 23:45:03 Result Notes None recorded. Problems Name Problem SNOMED Code Status Onset Date Resolution Date Notes Provider Name and Address Organization Details Recorded Time Type 2 diabetes mellitus 16954006 Active 2017 Giovany Mcguire MD Attn: Denysvika yun,[address] [facility], [place], [address], [place] [facility] 8 12:04:04 Hyperlipide ritchie 91847796 Active 2017 Giovany Mcguire MD Attn: Denysvika yun,[address] [facility], [place], [address], [place] [facility] 8 12:05:02 History of malignant neoplasm of bladder 379539159 Active 2017 Giovany Mcguire MD Attn: Adelaida yun,[address] [facility], [place], [address], [place] [facility] 8 12:05:38 Tobacco user 153517419 Active 2017 Giovany Mcguire MD Attn: Adelaida yun,[address] [facility], [place], [address], [place] [facility] 8 12:06:02 Former heavy tobacco smoker 0539152480643 00 Active 2017 Giovany Mcguire MD Attn: Adelaida yun,[address] [facility], [place], [address], [place] [facility] 8 16:04:30 Steatotic liver disease 506423585 Active 2017 Giovany Mcguire MD Attn: Adelaida yun,[address] [facility], [place], [address], [place] [facility] 8 15:53:44 Dysuria 55842745 Active 2017 Albert Alexander PA-C Attn: Adelaida g,[address] [facility], [place], [address], [place] [facility] 8 16:06:20 Acute urinary tract infection 674015202 Active 2017 Albert Alexander PA-C Attn: Adelaida yun,[address], [place], [address], [facility] 8 17:24:44 Problem Notes None recorded. Procedures Surgical History Date Name Laterality Status Provider Name and Address Organization Details Recorded Time Total hysterectomy completed Kalani Crowley [place] - [facility] 09/04/2017 11:17:28 Imaging Results None [...] Updated DateTime 8 167.64 cm 24.1 kg/m2 43887.7 g 98 [degF] 76 /min 97 % 97 % 118 mm[Hg] 78 mm[Hg] Kalani Crowley MA [facility] 8 11:21:51 Date Recorded Body height Body mass index (BMI) Body weight Body temperature Oxygen saturation Oxygen saturation in Arterial blood by Pulse oximetry Heart rate Systolic blood pressure Diastolic blood pressure Provider Name and Address Organization Details Last Updated DateTime 8 167.64 cm 23.6 kg/m2 38505.4 9 g 98.1 [degF] 96 % 96 % 88 /min 110 mm[Hg] 74 mm[Hg] Kalani Crowley MA [facility] 8 15:32:54 Date Recorded Body height Body mass index (BMI) Body weight Oxygen saturation Oxygen saturation in Arterial blood by Pulse oximetry Heart rate Body temperature Systolic blood pressure Diastolic blood pressure Provider Name and Address Organization Details Last Updated DateTime 8 167.64 cm 24.2 kg/m2 06012.8 6 g 96 % 96 % 91 /min 97.9 [degF] 124 mm[Hg] 68 mm[Hg] Gris Rose MA [facility] 8 15:51:32 Social History Question Answer Notes LastModified by Organizat ion Details LastModified Time Tobacco Smoking Status Current Every Day Smoker Kalani Crowley MA [facility] 09/04/2017 11:17:00 What Was The Date [...] available 2017 11:16:56 Medical History Condition Response Cancer Y High Cholesterol Y Liver Disease Y Kidney or Bladder Problems Y Diabetes Y Gynecological HistoryNo gynecological history recorded. Obstetrics History GPAL:G 4 P 3 0 1 3 Type Value Full Term 3 Spontaneous 1 Living 3 Total 4 Past Encounters Encounter ID Performer Location Encounter Start Date Encounter Closed Date Diagnosis/Indication Diagnosis SNOMED-CT Code Diagnosis ICD10 Code Diagnosis Note [id number] MD Flip Red (Adult Med) [address] [place] [phone] 09/04/2017 10:50:53 09/04/2017 12:32:16 Type 2 diabetes mellitus 74023787 E11.9 BS seem OK off meds x 3 mths. Restart with metformin alone. Pt to call with FBS in 2 weeks Hyperlipidemia 07157559 E78.5 History of malignant neoplasm of bladder 634527652 Z85.51 Tobacco user 834434415 Z 72.0 [id number] Giovany Mcguire MD [facility] (Adult Med) [address] [place] [address] 10/17/2017 14:52:16 10/17/2017 16:00:58 Type 2 diabetes mellitus 37766143 E11.9 BS seem OK off meds x 3 mths. Restart with metformin alone. Pt to call with FBS in 2 weeks Hyperlipidemia 22826747 E78.5 History of malignant neoplasm of bladder 275264985 Z85.51 [id number] [facility] [address] [place] [phone] 02/12/2018 15:28:09 02/12/2018 16:16:50 Dysuria 20296294 R30.0 Tobacco user 577199708 Z 72.0 Type 2 natan betes mellitus 16029910 E11.9 Health Concerns Section Related Observation LastModified by Organization Detai ls LastModified Time None Recorded Concern Status LastModified by Organization Details LastModified Time None Recorded Advance Directives Directive None Recorded Payers Insurance Date Sequence Insurance Name Policy Number Policy Terry Covered Member ID Terry Member ID Guarantor Name 04/08/2018 1 [facility] - DOS PRIOR TO 2020 (MEDICAID REPLACEMENT - HMO) Dea Perez [id number] Dea Perez 01/12/2018 2 [place] Dea Perez [id number] Dea Perez Notes Date Note Type Note Provider Name and Address Organization Details Recorded Time 09/04/2017 text/html Changing physicians due to insurance. Giovany Mcguire MD Attn: Accounting,[address] [place], [address], [facility] 09/04/2017 12:31:09 10/17/2017 text/html has seen urologist. Scheduled for bladder examination(Small lesion seen on cystoscopy). FBs averaging 140 mg/dl Giovany Mcguire MD Attn: Accounting,[address] [place], [address], [facility] 10/17/2017 15:55:17 02/12/2018 text/html left cva tenderness , dysuria Albert Alexander PA-C Attn: Accounting,[address] [place], [address], [facility] 02/12/2018 22:23:05 OBGyn Episode No OBEpisode recorded.
--- OUTSIDE RECORDS SUMMARY | 2024-11-08 07:02 | XMS_ITS | Encounter Summary ---
Author Organization [employer] , [facility] Address [address] [place] [phone] Phone Care Team Providers Care Brass Plater Name Role Phone Vanna Dave Primary Care Provider Unava ilable Reason for Visit * Reason Comments Med Refill Encounter Details Date Type Department Care Team (Late st Contact Info) Description 06/28/2021 Refill [place] [employer] [facility], [address] [address] João [place] [address] [place] [phone] Social History Tobacco Use Types Packs/Day [...] on filedocumented in this encounter Care Teams Brass Plater Relationship Specialty Start Date End Date Vanna Dave FNP-C PCP - General Nurse Practitioner 02/07/22 documented as of this encounter
--- OUTSIDE RECORDS SUMMARY | 2024-11-08 07:02 | XMS_ITS | Clinical Summary ---
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 BAGS Pulse 68 06/07/2022 2:57 PM SEWING MACHINE OPERATOR PAPER BAGS Temperature 36.3 C (97.4 F) 06/07/2022 2:57 PM SEWING MACHINE OPERATOR PAPER BAGS Respiratory Rate 18 06/07/2022 2:57 PM SEWING MACHINE OPERATOR PAPER BAGS Oxygen Saturation 99% 06/07/2022 2:57 PM SEWING MACHINE OPERATOR PAPER BAGS Inhaled Oxygen Concentration - - Weight 70.8 kg (156 lb) 02/25/2020 12:00 PM CDT Height 167.6 cm (5' 6) 06/07/2022 2:57 PM SEWING MACHINE OPERATOR PAPER BAGS Body Mass Index 25.18 02/25/2020 12:00 PM [...] history exists Insurance Medicaid [place] Care Teams Feather Boner Relationship Specialty Start Date End Date aVnna Dave FNP-C PCP - General Nurse Practitioner 02/07/22
--- OUTSIDE RECORDS SUMMARY | 2024-11-08 07:02 | XMS_ITS | Encounter Summary ---
Author Organization [employer] , [facility] Address [address] [place] [phone] Phone Care Team Providers Care Pet Care Associate Name Role Phone Vanna Dave Primary Care Provider Unava ilable Reason for Visit * Reason Comments Med Refill Encounter Details Date Type Department Care Team (Late st Contact Info) Description 07/31/2021 Refill [place] [facility] [facility], [address] [phone] João [place] [address] [place] [phone] Social History Tobacco Use Types Packs/Day [...] on filedocumented in this encounter Care Teams Pet Care Associate Relationship Specialty Start Date End Date Vanna Dave FNP-C PCP - General Nurse Practitioner 02/07/22 documented as of this encounter
--- OUTSIDE RECORDS SUMMARY | 2024-11-08 07:02 | XMS_ITS | Clinical Summary ---
Author Organization [employer] [facility] Address [address] [place] [address] Care Team Providers Care Molder Apprentice Name Role Phone Vanna Dave ROSALIE-DATABASE COORDINATOR Primary Care Provider [phone] Source Comments [facility],non-owned Affiliates and Associated Physician Practices is amultiple site organization consisting of ambulatory clinics and hospital sitesin [place], [place], [place] and [place]. This disclosure is being madepursuant to the Care Everywhere program and may not contain all information available regarding this patient. Last updated 18.[employer] Allergies No known active allergies Medications * [...] vitamin D, ergocalciferol , (Drisdol) 1.25 MG (68143 UT) capsule Take 1 (one) capsule by [...] days 56 tablet 3 Active HYDROcodone-ac etaminophen ([place]) 5-325 MG tabletIndicati ons:Malignant neoplasm of posterior [...] Examples: Ensure Plant/Orgain 3 Active HYDROcodone-ac etaminophen ([place]) 5-325 MG tabletIndicati ons:Abscess,Ma lignant neoplasm of [...] and heating? Not hard at all 02/05/2023 [facility] - [...] place to sleep or slept in a chcf (including now)? No 02/05/2023 Comments No Sex and Gender Information Value Date Recorded Sex Assigned at Not on file Legal Sex Female 4:06 PM ENGINEERING AIDE Gender Identity Not on file Sexual Orientation [...] this topic Medical Devices Implanted Type Area Software Configuration Manager Device Identifier Shelf Expiration Date Model / Serial / Lot Stent Uret 7fr 26cm Sft Tria Implanted:Qty: 1 on 01/24/2023 by Silvano Rodríguez MD at [facility] [employer] [facility] 09/23/2024 [id number] / / [id number] Stent Uret 7fr 26cm Sft Tria Implanted:Qty: 1 on 01/24/2023 by Silvano Rodríguez MD at [facility] Left: [facility] [employer] [facility] 04/03/2025 [id number] / [id number] Insurance MEDICAID - OUT OF STATE UHC [...] 9:35 AM 11/06/2019 4:21 PM Care Teams Molder Apprentice Relationship Specialty Start Date End Date Vanna Dave APRN-KIM [address] [phone] PCP - General 11/20/20
--- OUTSIDE RECORDS SUMMARY | 2024-11-08 07:02 | XMS_ITS | Encounter Summary ---
Author Organization [employer] , [facility] Address [address] [place] [phone] Phone Care Team Providers Care Pipe And Test Supervisor Name Role Phone Vanna Dave Primary Care Provider Unava ilable Reason for Visit * Reason Comments Med Refill Encounter Details Date Type Department Care Team (Late st Contact Info) Description 09/02/2021 Refill [place] [employer] [facility], [address] [address] João [place] [address] [place] [phone] Social History Tobacco Use Types Packs/Day [...] on filedocumented in this encounter Care Teams Pipe And Test Supervisor Relationship Specialty Start Date End Date Vanna Dave FNP-C PCP - General Nurse Practitioner 02/07/22 documented as of this encounter
--- OUTSIDE RECORDS SUMMARY | 2024-11-08 07:02 | XMS_ITS ---
Author Organization [facility] Address [address] [place] [address] Care Team Providers Care Tank Pumper Panelboard Name Role Phone Eligio Shubham Unavailable [phone] Encounters Encounter Location Date Provider Diagnosis [place] [facility] [address] [facility] [address] [place] [address] 07/17/2024 Shubham Del Valle Plan Of Treatment Next Appt Details Provider Name:Shubham Eligio , 01/01/2025 02:45:00 PM, [address] [facility], [facility], [place], [address], Progress Notes * MARCY BARKEROB:[birth year] (69 yo F)Acc No.[id number]:07/17/2024 Progress Notes Patient: BINA DESHPANDE Provider: Angela PATRICIA MD, Vince.Avery.C.P, F.A.S.N. :1955 A ge:68 Y S ex:Female Date:07/17/2024 Address:[address] [place] [address] Subjective: * Chief Complaints: * * Medical History: Objective: * Vitals: Assessment: Plan: * Treatment: * Billing Information: * Visit Code: * Procedure Codes: * Electronic signature of Mary Del Valle MD on 11/08/2024 at 07:02 AM CDT Sign off status: Pending * Provider: Angela PATRICIA MD, Vince.Avery.C.P, F.A.S.N. Date: 07/17/2024 Generated for Printing/Faxing/eTransmitting on: 11/08/2024 07:02 AM CDT
--- OUTSIDE RECORDS SUMMARY | 2024-11-08 07:02 | XMS_ITS | Data Portability ---
Author Organization [place] [facility] [employer], Main Office Address [address] [place] [address] Care Team Providers Care Advertising Director Name Role Phone TERENCE BARBER Primary Care Provider [phone] CHRISTINE BARRIOS District Administrator GABY STOUT Field Education Coordinator [phone] Assessment Encounter Date Assessment Date Assessment LastModified [...] be referred to Dr. 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 Nicotine cessation counseling provided. [place] for quitting nicotine include getting ready, getting [...] in Quit For Life program Registering at www.quitline.WorkSnug Making a call to 5-382-SJSP-NOW ( ). A strong, clear, personalized message [...] failure or relapse. Patient can enroll in [facility]'s smoking cessation class through Ruby Gallegos [...] Lab CBC w/ auto diff [address] (Lab), [address] [place], [address], 09/12/2024 12:14:01 lipid panel, serum [address] (Lab), [address] [place], [address], 09/12/2024 12:14:00 CBC w/ auto diff 2024 025 [facility] (Lab), [address] [place], [address], 10/23/2024 16:41:03 CMP, serum or plasma [address] (Lab), [address] [place], [address], 09/12/2024 12:14:00 TSH, serum or plasma [address] (Lab), [address] [place], [address], 09/12/2024 12:14:02 vitamin D, 25-hydrox y, total, serum [address] (Lab), [address] [place], [address], 09/12/2024 12:14:01 glycohemo globin, total, blood [address] (Lab), [address] [place], [address], 09/12/2024 12:13:59 microalbu min, urine [address] (Lab), [address] [place], [address], 09/12/2024 12:13:59 TSH, serum or plasma [address] (Lab), [address] [place], [address], 09/12/2024 12:14:01 vitamin B12 + folate, serum or blood [address] (Lab), [address] [place], [address], 09/12/2024 12:14:01 CBC w/ auto diff [address] (Lab), [address] [place], [address], 06/13/2024 16:26:53 lipid panel, serum 2024 025 [facility] (Lab), [address] [place], [address], 09/06/2024 15:02:08 CBC w/ auto diff [address] (Lab), [address] [place], [address], 06/13/2024 16:26:52 CMP, serum or plasma 2024 025 [facility] (Lab), [address] [place], [address], 09/05/2024 13:48:48 TSH, serum or plasma [address] (Lab), [address] [place], [address], 06/13/2024 16:26:54 vitamin D, 25-hydrox y, total, serum [address] (Lab), [address] [place], [address], 06/13/2024 16:26:53 glycohemo globin, total, blood [address] (Lab), [address] [place], [address], 06/13/2024 16:26:50 microalbu min, urine 2024 025 [facility] (Lab), [address] [place], [address], 09/06/2024 15:02:08 T4, free, serum [address] (Lab), [address] [place], [address], 06/13/2024 16:26:54 TSH, serum or plasma [address] (Lab), [address] [place], [address], 06/13/2024 16:26:54 vitamin B12 + folate, serum or blood [address] (Lab), [address] [place], [address], 06/13/2024 16:26:53 CBC w/ auto diff 2023 024 [facility] (Lab), [address] [place], [address], 02/19/2024 11:36:51 lipid panel, serum 2023 024 [facility] (Lab), [address] [place], [address], 02/19/2024 12:03:05 CBC w/ auto diff [address] (Lab), [address] [place], [address], 08/14/2024 08:48:30 CMP, serum or plasma 2023 024 [facility] (Lab), [address] [place], [address], 02/19/2024 12:03:10 TSH, serum or plasma [address] (Lab), [address] [place], [address], 08/14/2024 08:48:30 vitamin D, 25-hydrox y, total, serum [address] (Lab), [address] [place], [address], 08/14/2024 08:48:30 glycohemo globin, total, blood 2023 024 [facility] (Lab), [address] [place], [address], 02/19/2024 15:16:55 microalbu min, urine 2023 024 [facility] (Lab), [address] [place], [address], 02/19/2024 12:25:51 T4, free, serum 2023 024 [facility] (Lab), [address] [place], [address], 02/19/2024 12:21:33 TSH, serum or plasma 2023 024 [facility] (Lab), [address] [place], [address], 02/19/2024 12:33:09 vitamin B12 + folate, serum or blood [address] (Lab), [address] [place], [address], 08/14/2024 08:48:30 CBC w/ auto diff 2023 024 [facility] (Lab), [address] [place], [address], 10/13/2023 11:48:46 potassium , serum or plasma [address] (Lab), [address] [place], [address], 04/16/2024 08:46:59 lipid panel, serum 2023 024 [facility] (Lab), [address] [place], [address], 10/13/2023 11:01:56 CBC w/ auto diff [address] (Lab), [address] [place], [address], 04/16/2024 08:46:59 CMP, serum or plasma 2023 024 [facility] (Lab), [address] [place], [address], 10/13/2023 11:02:22 TSH, serum or plasma [address] (Lab), [address] [place], [address], 04/16/2024 08:46:59 vitamin D, 25-hydrox y, total, serum [address] (Lab), [address] [place], [address], 04/16/2024 08:46:59 glycohemo globin, total, blood 2023 024 [facility] (Lab), [address] [place], [address], 10/13/2023 11:59:58 microalbu min, urine 2023 024 [facility] (Lab), [address] [place], [address], 10/13/2023 11:26:11 T4, free, serum 2023 024 [facility] (Lab), [address] [place], [address], 10/13/2023 11:17:29 TSH, serum or plasma 2023 024 [facility] (Lab), [address] [place], [address], 10/13/2023 11:44:05 vitamin B12 + folate, serum or blood [address] (Lab), [address] [place], [address], 04/16/2024 08:46:59 Referral infectiou s disease specialis t referral - Please call patient to schedule. Note from provider: (+) Quantifer on TB Gold 2024 025 JOHANA Holt MD, [address], [place], [address], 10/22/2024 14:40:33 hematolog ist referral - Please call patient to schedule an appointme nt. Thank you. 2024 025 CHITO Williamson MD, [address], [place], [address], 11/05/2024 15:02:58 gynecolog ist referral - Please call patient to schedule an appointme nt. Thank you. 2024 025 JOHANA Olivarez, [address], [place], [address], Ph [phone] 09/13/2024 11:46:51 nephrolog ist referral - Please call patient to schedule an appointme nt. Thank you. 2024 025 JOHANA Del Valle MD (Nephrology, [address], [address], [place], [address], 09/13/2024 11:24:41 pulmonolo gist referral - Please call patient to schedule an appointme nt. Thank you. 2024 025 [email or web address] Christine Barrios MD, [address] [place], [address], 09/13/2024 11:11:25 cardiolog ist referral - Please call patient to schedule an appointme nt. Thank you. 2024 025 [place], [address], [address], [place], [address], 09/13/2024 12:09:41 podiatris t referral - Please call patient to schedule an appointme nt. Thank you. 2024 025 CHITO Dupont DPM, [address] [facility], [address], [place], [address], 09/16/2024 08:46:44 hematolog ist referral - Please call patient to schedule an appointme nt. Thank you. 2024 025 [email or web address] Tommie Williamson MD, [address], [place], [address], 08/07/2024 08:46:15 gynecolog ist referral - Please call patient to schedule an appointme nt. Thank you. 2024 025 [email or web address] Radha Olivarez, [address], [place], [address], Ph [phone] 10/24/2024 08:53:48 nephrolog ist referral - Please call patient to schedule an appointme nt. Thank you. 2024 025 [email or web address] Shubham Del Valle MD (Nephrology, [address], [address], [place], [address], 10/24/2024 08:53:50 pulmonolo gist referral - Please call patient to schedule an appointme nt. Thank you. 2024 025 [email or web address] Christine Barrios MD, [address], [place], [address], 08/20/2024 08:40:58 cardiolog ist referral - Please call patient to schedule an appointme nt. Thank you. 2024 025 Carlos Alberto Graf MD, [address], [address], [place], [address], 08/20/2024 08:40:47 podiatris t referral - Please call patient to schedule an appointme nt. Thank you. 2024 025 [email or web address] Bolivar Dupont DPM, [address], [address], [place], [address], 10/24/2024 08:53:49 gynecolog ist referral - Please call patient to schedule. 2023 024 [email or web address] Radha Olivarez, [address], [place], [address], Ph [phone] 09/17/2024 12:39:41 nephrolog ist referral 2023 024 [email or web address] Shubham Del Valle MD (Nephrology, [address], [address], [place], [address], 02/19/2024 16:05:34 pulmonolo gist referral 2023 024 [email or web address] Christine Barrios MD, [address], [place], [address], 02/19/2024 16:05:34 cardiolog ist referral 2023 024 [email or web address] Carlos Alberto Graf MD, [address], [address], [place], [address], 02/19/2024 16:05:33 podiatris t referral - Please call patient to schedule. 2023 024 [email or web address] Bolivar Dupont DPM, [address], [address], [place], [address], 03/21/2024 08:09:19 ENT surgery referral 2023 024 Gaby Stout MD, [address], [place], [address], 05/07/2024 15:58:00 gynecolog ist referral 2023 024 [email or web address] Radha Olivarez, [address], [place], [address], Ph [phone] 04/16/2024 08:47:10 nephrolog ist referral 2023 024 [email or web address] João [place], [address], [address], [place], [address], 11/09/2023 12:53:39 pulmonolo gist referral 2023 024 [email or web address] Christine Barrios MD, [address] [facility], [place], [address], 11/09/2023 12:53:16 cardiolog ist referral 2023 024 [email or web address] Carlos Alberto Graf MD, [address] [facility], [address], [place], [address], 04/16/2024 08:47:11 podiatris t referral 2023 024 Bolivar Dupont DPM, [address] [facility], [address], [place], [address], 04/16/2024 08:47:12 Procedures colonosco py screening (PROC) - Please call patient to schedule an appointme nt. Thank you. 2024 025 [email or web address] Martinez MD, [address] [facility], [facility], [place], [address], 09/13/2024 11:06:16 upper endoscopy procedure (EGD) (PROC) - Please call patient to schedule an appointme nt. Thank you. 2024 025 [email or web address] Martinez MD, [address], [facility] [address], [place], [address], 09/13/2024 11:03:26 colonosco py screening (PROC) - Please call patient to schedule an appointme nt. Thank you. 2024 025 [email or web address] Martinez MD, [address], [facility] [address], [place], [address], 08/20/2024 08:52:24 upper endoscopy procedure (EGD) (PROC) - Please call patient to schedule an appointme nt. Thank you. 2024 025 hrushingAntonieta Martinez MD, [address], [address], [place], [address], 08/20/2024 08:51:54 colonosco py screening (PROC) - Please call patient to schedule. 2023 024 [email or web address] Martinez MD, [address], [address], [place], [address], 09/17/2024 08:37:51 upper endoscopy procedure (EGD) (PROC) - Please call patient to schedule. 2023 024 [email or web address] Martinez MD, [address], [address], [place], [address], 09/17/2024 08:37:31 colonosco py screening (PROC) 2023 024 astrid Villalta MD, [address], [address], [place], [address], 04/16/2024 08:46:25 upper endoscopy procedure (EGD) (PROC) 2023 024 astrid Villalta MD, [address], [address], [place], [address], 04/16/2024 08:46:24 Surgeries None recorded. Imaging CT, chest, w/o contrast [address], [address], [place], [address], 10/22/2024 16:06:12 MAMMO, screening , digital, bilateral - Please call patient to schedule. [address] [facility], [address], [place], [address], 09/12/2024 12:31:25 LDCT, chest, for lung cancer screening [address] [facility], [address], [address], [place], [address], 09/12/2024 12:30:52 DEXA, axial skeleton - Please call patient to schedule. [address] [facility], [address], [place], [address], 10/17/2024 12:09:50 MAMMO, screening , digital, bilateral - Please call patient to schedule. [address] [facility], [address], [address], [place], [address], 09/19/2024 16:04:39 LDCT, chest, for lung cancer screening - Please call patient to schedule. 2024 025 [facility], [address], [address], [place], [address], 08/19/2024 07:46:17 DEXA, axial skeleton [email or web address], [address], [address], [place], [address], 07/23/2024 14:18:35 DEXA, axial skeleton [address] ([facility]), [address] [facility], [place], [address], 08/27/2024 16:12:49 Medication Orders lisinopri l 2.5 mg tablet 2024 025 [facility] #[id number], [address], [place], [address], 06/13/2024 16:25:36 lisinopri l 2.5 mg tablet 2023 024 [id number], [address], [place], [address], 06/13/2024 15:43:05 Patient TargetsNo targets recorded. Patient Instructions Encounter Date Encounter Id Patient Instructions Last Modified By Organization Details Last Modified Time 10/12/2023 [id number] dementia rating scale-2* [email or web address] Not available 10/12/2023 16:17:33 depression screening* Not available 10/12/2023 16:17:16 alcohol misuse* [email or web address] Not available 10/12/2023 16:16:59 multi-dimensiona l health assessment questionnaire* Not available 10/12/2023 16:33:32 advance directiv es: care instructions [email or web address] Not available 10/12/2023 16:33:32 advance care planning: care instructions e.j. [email or web address] Not available 10/12/2023 16:33:32 [place] Advance Directives e.j. noble Not available 10/12/2023 16:33:32 diabetic eye exam* [email or web address] Not availa ble 04/16/2024 08:46:33 Personalized Hea [...] year Cervical/Uterine/Ov moise Cancer Screening: Referral to monkey trainer Osteoporosis Screening: Ordered Date Screening Last Performed: 09/28/2021 Colon Cancer Screening: Colonoscopy Referral done Eye Disease Screening: Recommended today Dementia Risk: Intermediate I have no recommendations Depression Screening: Negative [email or web address] Not available 10/12/2023 16:20:15 06/13/2024 [id number] diabetic eye exam* [email or web address] Not avail able 06/13/2024 16:26:55 09/12/2024 [id number] diabetic eye exam* [email or web address] Not avail able 09/12/2024 12:14:02 10/17/2024 [id number] complete PFT w/ post bronchodilator spirometry* - Please call patient to schedule. RAMOS [id number] per payor portal, ref #[id number]. ATHENAFAX Not available 10/21/2024 16:05:21 Reason for Referral Sumac Tanner Referral for Gy necologic examination Referring Physician: Terence Barber Internal Medicine, Encounter Date: 10/12/2023 Waste Picker Referral for Co ronary arteriosclerosis Referring Physician: Petrona Brandt Medicine, Encounter Date: 10/12/2023 District Administrator Referral for C hronic obstructive pulmonary disease Referring Physician: Petrona Brandt Medicine, Encounter Date: 10/12/2023 Billet Inspector Referral for Type 2 diabetes mellitus without complication Referring Physician: Petrona Brandt Medicine, Encounter Date: 10/12/2023 Supervisor Forming And Tempering Referral for Pr oteinuria Referring Physician: Petrona Brandt Medicine, Encounter Date: 10/12/2023 ENT Surgery Referral for Thy roid nodule Referring Physician: Petrona Brandt, Encounter Date: 10/12/2023 Sumac Tanner Referral for Gy necologic examination Please call patient to schedule. Referring Physician: Petrnoa Brandt, Encounter Date: 02/15/2024 Waste Picker Referral for Co ronary arteriosclerosis Referring Physician: Terence Barber Internal Medicine, Encounter Date: 02/15/2024 District Administrator Referral for C hronic obstructive pulmonary disease Referring Physician: Terence Barber [facility], Encounter Date: 02/15/2024 Billet Inspector Referral for Type 2 diabetes mellitus without complication Please call patient to schedule. Referring Physician: Petrona Brandt Medicine, Encounter Date: 02/15/2024 Supervisor Forming And Tempering Referral for Pr oteinuria Referring Physician: Terence Barber [facility], Encounter Date: 02/15/2024 Sumac Tanner Referral for Gy necologic examination Please call patient to schedule an appointment. Thank you. Referring Physician: Petrona Brandt [facility], Encounter Date: 06/13/2024 Waste Picker Referral for Co ronary arteriosclerosis Please call patient to schedule an appointment. Thank you. Referring Physician: Petrona Brandt [facility], Encounter Date: 06/13/2024 District Administrator Referral for C hronic obstructive pulmonary disease Please call patient to schedule an appointment. Thank you. Referring Physician: Petrona Brandt [facility], Encounter Date: 06/13/2024 Billet Inspector Referral for Type 2 diabetes mellitus without complication Please call patient to schedule an appointment. Thank you. Referring Physician: Petrona Brandt [facility], Encounter Date: 06/13/2024 Supervisor Forming And Tempering Referral for Pr oteinuria Please call patient to schedule an appointment. Thank you. Referring Physician: Petrona Brandt, Encounter Date: 06/13/2024 Please call patient to sched ule an appointment. Thank you. Referring Physician: Petrona Brandt, Encounter Date: 06/13/2024 Sumac Tanner Referral for Gy necologic examination Please call patient to schedule an appointment. Thank you. Referring Physician: Terence Barber Internal Medicine, Encounter Date: 09/12/2024 Waste Picker Referral for Co ronary arteriosclerosis Please call patient to schedule an appointment. Thank you. Referring Physician: Terence Barber, Internal Medicine, Encounter Date: 09/12/2024 District Administrator Referral for C hronic obstructive pulmonary disease Please call patient to schedule an appointment. Thank you. Referring Physician: Terence Barber, Internal Medicine, Encounter Date: 09/12/2024 Billet Inspector Referral for Type 2 diabetes mellitus without complication Please call patient to schedule an appointment. Thank you. Referring Physician: Terence Barber, Internal Medicine, Encounter Date: 09/12/2024 Supervisor Forming And Tempering Referral for Pr oteinuria Please call patient [...] Order d not applic able Not Available [facility] (Cologuard Orders Only) [address], [place], [address], 11/07/2023 12:05:14 10/13/19 24 10/13/2023 LIPID PANEL cholesterol 145 mg/dL 140-19 9 NIH ALEKS NSUS RECOM MENDA TION FOR GLORIA STERO L: ADULT CHILD LOW RISK: <200 <170 BORDE RLINE : <200- 239 ----- HIGH RISK: >240 >200 Not Available [facility] (Lab) [address] [place], [address], 10/13/2023 11:01:56 10/13/19 24 10/13/2023 LIPID PANEL triglyceride s 127 mg/dL 0-150 NIH ALEKS NSUS REPOR T RECOM MENDA TION FOR TRIGL YCERI WES: ADULT CHILD LOW RISK: <150 ----- BODER LINE: 150-1 99 ----- HIGH RISK: >200 ----- Not Available [facility] (Lab) [address] [place], [address], 10/13/2023 11:01:56 10/13/19 24 10/13/2023 LIPID PANEL HDL cholesterol 39 mg/dL 40- low Not Available [facility] (Lab) [address] [place], [address], 10/13/2023 11:01:56 10/13/19 24 10/13/2023 LIPID PANEL [...] WILL NOT BE REPOR GEOVANNA. Not Available [facility] (Lab) [address] [place], [address], 10/13/2023 11:01:56 10/13/1910/13/2023 COMPR EHENS YULIANA METAB OLIC PANEL sodium 140 mmol/ L 137-14 5 Not Available [facility] (Lab) [address] [place], [address], 10/13/2023 11:02:22 10/13/19 10/13/2023 COMPR EHENS YULIANA METAB OLIC PANEL potassium 5.1 mmol/ L 3.5-5. 1 Not Available [facility] (Lab) [address] [place], [address], 10/13/2023 11:02:22 10/13/19 24 10/13/2023 COMPR EHENS YULIANA METAB OLIC PANEL chloride 115 mmol/ L 98-107 high Not Available [facility] (Lab) [address] [place], [address], 10/13/2023 11:02:22 10/13/19 24 10/13/2023 COMPR EHENS YULIANA METAB OLIC PANEL carbon dioxide 19 mmol/ L 22-30 low Not Available [facility] (Lab) [address] [place], [address], 10/13/2023 11:02:22 10/13/19 24 10/13/2023 COMPR EHENS YLUIANA METAB OLIC PANEL anion gap 11.1 mmol/ L 14-22 low Not Available [facility] (Lab) [address] [place], [address], 10/13/2023 11:02:22 10/13/19 24 10/13/2023 COMPR EHENS YULIANA METAB OLIC PANEL glucose 107 mg/dL 70-99 high Not Available [facility] (Lab) [address] [place], [address], 10/13/2023 11:02:22 10/13/19 24 10/13/2023 COMPR EHENS YULIANA METAB OLIC PANEL BUN 15 mg/dL 8-19 Not Available [facility] (Lab) [address] [place], [address], 10/13/2023 11:02:22 10/13/19 24 10/13/2023 COMPR EHENS YULIANA METAB OLIC PANEL creatinine 0.92 mg/dL 0.66-1 .25 Not Available [facility] (Lab) [address] [place], [address], 10/13/2023 11:02:22 10/13/19 24 10/13/2023 COMPR EHENS YULIANA METAB OLIC PANEL GFR >60 Refer ence Range : [place] GFR Healt hy Adult : >60 [...] or ethni c subgr oups, such as Hisnh nics. Outsi de the valid ated tk [...] calcu lator is avail able on the [facility] websi te: https ://zoe pinzon.mandie rg/pr ofess ional s/kdo qi/gf r_cal culat or Not Available [facility] (Lab) [address] [place], [address], 10/13/2023 11:02:22 10/13/19 24 10/13/2023 COMPR EHENS YULIANA METAB OLIC PANEL alkaline phosphatase 73 U/L 38-126 Not Available [facility] (Lab) [address] [place], [address], 10/13/2023 11:02:22 10/13/19 24 10/13/2023 COMPR EHENS YULIANA METAB OLIC PANEL alanine aminotransfe rase 17 U/L 0-35 Not Available [facility] (Lab) [address] [facility] [place], [address], 10/13/2023 11:02:22 10/13/19 24 10/13/2023 COMPR EHENS YULIANA METAB OLIC PANEL aspartate aminotransfe rase 22 U/L 15-37 Not Available [facility] (Lab) [address] [place], [address], 10/13/2023 11:02:22 10/13/19 24 10/13/2023 COMPR EHENS YULIANA METAB OLIC PANEL bilirubin, total 0.40 mg/dL 0.20-1 .30 Not Available [facility] (Lab) [address] [place], [address], 10/13/2023 11:02:22 10/13/19 24 10/13/2023 COMPR EHENS YULIANA METAB OLIC PANEL calcium 9.7 mg/dL 8.4-10 .2 Not Available [facility] (Lab) [address] [place], [address], 10/13/2023 11:02:22 10/13/19 24 10/13/2023 COMPR EHENS YULIANA METAB OLIC PANEL total protein 6.9 g/dL 6.3-8. 2 Not Available [facility] (Lab) [address] [place], [address], 10/13/2023 11:02:22 10/13/19 24 10/13/2023 COMPR EHENS YULIANA METAB OLIC PANEL albumin 4.2 g/dL 3.0-4. 4 Not Available [facility] (Lab) [address] [place], [address], 10/13/2023 11:02:22 10/13/19 24 10/13/2023 COMPR EHENS YULIANA METAB OLIC PANEL globulin 2.7 g/dL 2.6-4. 2 Not Available [facility] (Lab) [address] [place], [address], 10/13/2023 11:02:22 10/13/19 24 10/13/2023 COMPR EHENS YULIANA METAB OLIC PANEL A/G ratio 1.6 ratio 1.0-2. 0 Not Available [facility] (Lab) [address] [place], [address], 10/13/2023 11:02:22 10/13/19 24 10/13/2023 T4 FREE free T4 0.80 NG/dL 0.78-2 .19 Not Available [facility] (Lab) [address] [place], [address], 10/13/2023 11:17:29 10/13/19 24 10/13/2023 MICRO ALBUM IN RANDO M URINE microalbumin , urine 45.6 mg/L 0.0-16 .6 high Not Available [facility] (Lab) [address] [place], [address], 10/13/2023 11:26:10 10/13/19 24 10/13/2023 TSH thyroid-stim ulating hormone 1.200 uIU/m L 0.465- 4.680 Not Available [facility] (Lab) [address] [place], [address], 10/13/2023 11:44:04 10/13/19 24 10/13/2023 CBC/C OMPLE TE BLD COUNT W/DIF F white blood cells 8.4 x10'3 /uL 4.2-10 .8 Not Available [facility] (Lab) [address] [place], [address], 10/13/2023 11:48:46 10/13/19 24 10/13/2023 CBC/C OMPLE TE BLD COUNT W/DIF F red blood cells 4.37 x10'6 /uL 3.80-5 .20 Not Available [facility] (Lab) [address] [place], [address], 10/13/2023 11:48:46 10/13/19 24 10/13/2023 CBC/C OMPLE TE BLD COUNT W/DIF F hemoglobin 13.3 g/dL 12.0-1 5.6 Not Available [facility] (Lab) [address] [place], [address], 10/13/2023 11:48:46 10/13/19 24 10/13/2023 CBC/C OMPLE TE BLD COUNT W/DIF F hematocrit 41.8 % 35.7-4 5.7 Not Available [facility] (Lab) [address] [place], [address], 10/13/2023 11:48:46 10/13/19 24 10/13/2023 CBC/C OMPLE TE BLD COUNT W/DIF F mean red cell volume 95.7 fL 82.0-9 9.0 Not Available [facility] (Lab) [address] [place], [address], 10/13/2023 11:48:46 10/13/19 24 10/13/2023 CBC/C OMPLE TE BLD COUNT W/DIF F mean red cell hemoglobin 30.4 pg 27.0-3 3.0 Not Available [facility] (Lab) [address] [place], [address], 10/13/2023 11:48:46 10/13/19 24 10/13/2023 CBC/C OMPLE TE BLD COUNT W/DIF F mean RBC HGB concentratio n 31.8 g/dL 31.0-3 6.0 Not Available [facility] (Lab) [address] [place], [address], 10/13/2023 11:48:46 10/13/19 24 10/13/2023 CBC/C OMPLE TE BLD COUNT W/DIF F red cell distribution width 15.1 % 11.8-1 5.5 Not Available [facility] (Lab) [address] [place], [address], 10/13/2023 11:48:46 10/13/19 24 10/13/2023 CBC/C OMPLE TE BLD COUNT W/DIF F platelets 424 x10'3 /uL 150-40 0 high Not Available [facility] (Lab) [address] [place], [address], 10/13/2023 11:48:46 10/13/19 24 10/13/2023 CBC/C OMPLE TE BLD COUNT W/DIF F mean platelet volume 9.7 fL 9.0-12 .4 Not Available [facility] (Lab) [address] [place], [address], 10/13/2023 11:48:46 10/13/19 24 10/13/2023 CBC/C OMPLE TE BLD COUNT W/DIF F neutrophils 39.5 % 39.0-7 2.0 Not Available [facility] (Lab) [address] [place], [address], 10/13/2023 11:48:46 10/13/19 24 10/13/2023 CBC/C OMPLE TE BLD COUNT W/DIF F lymphocytes 48.4 % 16.0-4 7.0 high Not Available [facility] (Lab) [address] [place], [address], 10/13/2023 11:48:46 10/13/19 24 10/13/2023 CBC/C OMPLE TE BLD COUNT W/DIF F monocytes 8.4 % 5.0-12 .0 Not Available [facility] (Lab) [address] [place], [address], 10/13/2023 11:48:46 10/13/19 24 10/13/2023 CBC/C OMPLE TE BLD COUNT W/DIF F eosinophils 2.9 % 1.0-7. 0 Not Available [facility] (Lab) [address] [place], [address], 10/13/2023 11:48:46 10/13/19 24 10/13/2023 CBC/C OMPLE TE BLD COUNT W/DIF F basophils 0.6 % 0.0-2. 0 Not Available [facility] (Lab) [address] [place], [address], 10/13/2023 11:48:46 10/13/19 24 10/13/2023 CBC/C OMPLE TE BLD COUNT W/DIF F immature granulocytes 0.2 % 0.00-0 .50 Not Available [facility] (Lab) [address] [place], [address], 10/13/2023 11:48:46 10/13/19 24 10/13/2023 CBC/C OMPLE TE BLD COUNT W/DIF F neutrophils, absolute count 3.30 x10'3 /uL 1.5-8. 0 Not Available [facility] (Lab) [address] [place], [address], 10/13/2023 11:48:46 10/13/19 24 10/13/2023 CBC/C OMPLE TE BLD COUNT W/DIF F lymphocytes, absolute count 4.04 x10'3 /uL 1.07-3 .43 high Not Available [facility] (Lab) [address] [place], [address], 10/13/2023 11:48:46 10/13/19 24 10/13/2023 CBC/C OMPLE TE BLD COUNT W/DIF F monocytes, absolute count 0.70 x10'3 /uL 0.29-0 .99 Not Available [facility] (Lab) [address] [place], [address], 10/13/2023 11:48:46 10/13/19 24 10/13/2023 CBC/C OMPLE TE BLD COUNT W/DIF F eosinophils, absolute count 0.24 x10'3 /uL 0.02-0 .53 Not Available [facility] (Lab) [address] [place], [address], 10/13/2023 11:48:46 10/13/19 24 10/13/2023 CBC/C OMPLE TE BLD COUNT W/DIF F basophils, absolute count 0.05 x10'3 /uL 0.01-0 .08 Not Available [facility] (Lab) [address] [place], [address], 10/13/2023 11:48:46 10/13/19 24 10/13/2023 CBC/C OMPLE TE BLD COUNT W/DIF F immature granulocytes ,absolute 0.02 x10'3 /uL 0.00-0 .05 Not Available [facility] (Lab) [address] [place], [address], 10/13/2023 11:48:46 10/13/19 24 10/13/2023 CBC/C OMPLE TE BLD COUNT W/DIF F nucleated red blood cells 0.0 % -0 Not Available [facility] (Lab) [address] [place], [address], 10/13/2023 11:48:46 10/13/19 24 10/13/2023 CBC/C OMPLE TE BLD COUNT W/DIF F NRBC# 0.00 x10'3 /uL Not Available [facility] (Lab) [address] [place], [address], 10/13/2023 11:48:46 10/13/19 24 10/13/2023 HEMOG LOBIN A1C HA1C 6.4 % 4.0-6. 0 high Diabe dick Scree brennon Crite kena: <5.7% Consi stent with absen ce of diabe dick 5.7-6 .4% Consi stent with incre ased risk for diabe dick (pred iabet es) >OR=6 .5% Consi stent with diabe dick REFER ENCE: Diabe dick Care 2016, 39(Jones ppl.1 ):s13 -s22 Not Available [facility] (Lab) [address] [place], [address], 10/13/2023 11:59:58 10/13/19 24 10/13/2023 VITAM IN D 25-HY DROXY [id number] 65.2 NG/mL 30-100 Vitam in D Statu s: Defic ient: <20 ng/mL Insuf ficie nt: 20-29 ng/mL Suffi cient : 30-10 0 ng/mL Not Available [facility] (Lab) [address] [place], [address], 10/13/2023 13:22:31 10/13/19 24 10/13/2023 FOLAT E, SERUM /PLAS MA folate 8.91 NG/mL 2.76-2 0.0 Not Available [facility] (Lab) [address] [place], [address], 10/13/2023 13:44:45 10/13/19 24 10/13/2023 VITAM IN B12 (SCOOBY JOSE LUIS ) vb12 206 pg/mL 239-93 1 low Not Available [facility] (Lab) [address] [place], [address], 10/13/2023 13:44:49 02/19/20 24 02/19/2024 CBC/C OMPLE TE BLD COUNT W/DIF F white blood cells 11.3 x10'3 /uL 4.2-10 .8 high Not Available [facility] (Lab) [address] [place], [address], 02/19/2024 12:03:02 02/19/20 24 02/19/2024 CBC/C OMPLE TE BLD COUNT W/DIF F red blood cells 4.41 x10'6 /uL 3.80-5 .20 Not Available [facility] (Lab) [address] [place], [address], 02/19/2024 12:03:02 02/19/20 24 02/19/2024 CBC/C OMPLE TE BLD COUNT W/DIF F hemoglobin 13.8 g/dL 12.0-1 5.6 Not Available [facility] (Lab) [address] [place], [address], 02/19/2024 12:03:02 02/19/20 24 02/19/2024 CBC/C OMPLE TE BLD COUNT W/DIF F hematocrit 43.9 % 35.7-4 5.7 Not Available [facility] (Lab) [address] [place], [address], 02/19/2024 12:03:02 02/19/20 24 02/19/2024 CBC/C OMPLE TE BLD COUNT W/DIF F mean red cell volume 99.5 fL 82.0-9 9.0 high Not Available [facility] (Lab) [address] [place], [address], 02/19/2024 12:03:02 02/19/20 24 02/19/2024 CBC/C OMPLE TE BLD COUNT W/DIF F mean red cell hemoglobin 31.3 pg 27.0-3 3.0 Not Available [facility] (Lab) [address] [place], [address], 02/19/2024 12:03:02 02/19/20 24 02/19/2024 CBC/C OMPLE TE BLD COUNT W/DIF F mean RBC HGB concentratio n 31.4 g/dL 31.0-3 6.0 Not Available [facility] (Lab) [address] [place], [address], 02/19/2024 12:03:02 02/19/20 24 02/19/2024 CBC/C OMPLE TE BLD COUNT W/DIF F red cell distribution width 13.9 % 11.8-1 5.5 Not Available [facility] (Lab) [address] [place], [address], 02/19/2024 12:03:02 02/19/20 24 02/19/2024 CBC/C OMPLE TE BLD COUNT W/DIF F platelets 450 x10'3 /uL 150-40 0 high Not Available [facility] (Lab) [address] [place], [address], 02/19/2024 12:03:02 02/19/20 24 02/19/2024 CBC/C OMPLE TE BLD COUNT W/DIF F mean platelet volume 10.2 fL 9.0-12 .4 Not Available [facility] (Lab) [address] [place], [address], 02/19/2024 12:03:02 02/19/20 24 02/19/2024 CBC/C OMPLE TE BLD COUNT W/DIF F neutrophils 43 % 39.0-7 2.0 Not Available [facility] (Lab) [address] [place], [address], 02/19/2024 12:03:02 02/19/20 24 02/19/2024 CBC/C OMPLE TE BLD COUNT W/DIF F lymphocytes 52 % 16.0-4 7.0 high Not Available [facility] (Lab) [address] [place], [address], 02/19/2024 12:03:02 02/19/20 24 02/19/2024 CBC/C OMPLE TE BLD COUNT W/DIF F monocytes 3 % 5.0-12 .0 low Not Available [facility] (Lab) [address] [place], [address], 02/19/2024 12:03:02 02/19/20 24 02/19/2024 CBC/C OMPLE TE BLD COUNT W/DIF F eosinophils 2 % 1.0-7. 0 Not Available [facility] (Lab) [address] [place], [address], 02/19/2024 12:03:02 02/19/20 24 02/19/2024 CBC/C OMPLE TE BLD COUNT W/DIF F neutrophils, absolute count 4.99 x10'3 /uL 1.5-8. 0 Not Available [facility] (Lab) [address] [place], [address], 02/19/2024 12:03:02 02/19/20 24 02/19/2024 LIPID PANEL cholesterol 136 mg/dL 140-19 9 low NIH ALEKS NSUS RECOM MENDA TION FOR GLORIA STERO L: ADULT CHILD LOW RISK: <200 <170 BORDE RLINE : <200- 239 ----- HIGH RISK: >240 >200 Not Available [facility] (Lab) [address] [place], [address], 02/19/2024 12:03:05 02/19/20 24 02/19/2024 LIPID PANEL triglyceride s 199 mg/dL 0-150 high NIH ALEKS NSUS REPOR T RECOM MENDA TION FOR TRIGL YCERI WES: ADULT CHILD LOW RISK: <150 ----- BODER LINE: 150-1 99 ----- HIGH RISK: >200 ----- Not Available [facility] (Lab) [address] [place], [address], 02/19/2024 12:03:05 02/19/20 24 02/19/2024 LIPID PANEL HDL cholesterol 33 mg/dL 40- low Not Available [facility] (Lab) [address] [place], [address], 02/19/2024 12:03:05 02/19/20 24 02/19/2024 LIPID PANEL [...] WILL NOT BE REPOR GEOVANNA. Not Available [facility] (Lab) [address] [place], [address], 02/19/2024 12:03:05 02/19/20 24 02/19/2024 COMPR EHENS YULIANA METAB OLIC PANEL sodium 138 mmol/ L 137-14 5 Not Available [facility] (Lab) [address] [place], [address], 02/19/2024 12:03:10 02/19/20 24 02/19/2024 COMPR EHENS YULIANA METAB OLIC PANEL potassium 4.9 mmol/ L 3.5-5. 1 Not Available [facility] (Lab) [address] [place], [address], 02/19/2024 12:03:10 02/19/20 24 02/19/2024 COMPR EHENS YULIANA METAB OLIC PANEL chloride 109 mmol/ L 98-107 high Not Available [facility] (Lab) [address] [place], [address], 02/19/2024 12:03:10 02/19/20 24 02/19/2024 COMPR EHENS YULIANA METAB OLIC PANEL carbon dioxide 23 mmol/ L 22-30 Not Available [facility] (Lab) [address] [place], [address], 02/19/2024 12:03:10 02/19/20 24 02/19/2024 COMPR EHENS YULIANA METAB OLIC PANEL anion gap 10.9 mmol/ L 14-22 low Not Available [facility] (Lab) [address] [place], [address], 02/19/2024 12:03:10 02/19/20 24 02/19/2024 COMPR EHENS YULIANA METAB OLIC PANEL glucose 125 mg/dL 70-99 high Not Available [facility] (Lab) [address] [place], [address], 02/19/2024 12:03:10 02/19/20 24 02/19/2024 COMPR EHENS YULIANA METAB OLIC PANEL BUN 19 mg/dL 8-19 Not Available [facility] (Lab) [address] [place], [address], 02/19/2024 12:03:10 02/19/2002/19/2024 COMPR EHENS YULIANA METAB OLIC PANEL creatinine 1.15 mg/dL 0.66-1 .25 Not Available [facility] (Lab) [address] [place], [address], 02/19/2024 12:03:10 02/19/20 24 02/19/2024 COMPR EHENS YULIANA METAB OLIC PANEL GFR 47 Refer ence Range : [place] GFR Healt hy Adult : >60 [...] or ethni c subgr oups, such as Hisnh nics. Outsi de the valid ated tk [...] of age, a pedia tric GFR calcu latjayda is avail able on the F websi te: https ://zoe mayorga.piter pinzon.o bertin/pr ofess ional s/kdo qi/gf r_cal culat or Not Available [facility] (Lab) [address] [place], [address], 02/19/2024 12:03:10 02/19/20 24 02/19/2024 COMPR EHENS YULIANA METAB OLIC PANEL alkaline phosphatase 78 U/L 38-126 Not Available [facility] (Lab) [address] [place], [address], 02/19/2024 12:03:10 02/19/20 24 02/19/2024 COMPR EHENS YULIANA METAB OLIC PANEL alanine aminotransfe rase 22 U/L 0-35 Not Available [facility] (Lab) [address] [place], [address], 02/19/2024 12:03:10 02/19/20 24 02/19/2024 COMPR EHENS YULIANA METAB OLIC PANEL aspartate aminotransfe rase 24 U/L 15-37 Not Available [facility] (Lab) [address] [place], [address], 02/19/2024 12:03:10 02/19/20 24 02/19/2024 COMPR EHENS YULIANA METAB OLIC PANEL bilirubin, total 0.40 mg/dL 0.20-1 .30 Not Available [facility] (Lab) [address] [place], [address], 02/19/2024 12:03:10 02/19/20 24 02/19/2024 COMPR EHENS YULIANA METAB OLIC PANEL calcium 9.7 mg/dL 8.4-10 .2 Not Available [facility] (Lab) [address] [place], [address], 02/19/2024 12:03:10 02/19/20 24 02/19/2024 COMPR EHENS YULIANA METAB OLIC PANEL total protein 6.9 g/dL 6.3-8. 2 Not Available [facility] (Lab) [address] [place], [address], 02/19/2024 12:03:10 02/19/20 24 02/19/2024 COMPR EHENS YULIANA METAB OLIC PANEL albumin 4.1 g/dL 3.0-4. 4 Not Available [facility] (Lab) [address] [place], [address], 02/19/2024 12:03:10 02/19/20 24 02/19/2024 COMPR EHENS YULIANA METAB OLIC PANEL globulin 2.8 g/dL 2.6-4. 2 Not Available [facility] (Lab) [address] [place], [address], 02/19/2024 12:03:10 02/19/20 24 02/19/2024 COMPR EHENS YULIANA METAB OLIC PANEL A/G ratio 1.5 ratio 1.0-2. 0 Not Available [facility] (Lab) [address] [place], [address], 02/19/2024 12:03:10 02/19/20 24 02/19/2024 T4 FREE free T4 0.88 NG/dL 0.78-2 .19 Not Available [facility] (Lab) [address] [place], [address], 02/19/2024 12:21:33 02/19/20 24 02/19/2024 MICRO ALBUM IN RANDO M URINE microalbumin , urine 28.6 mg/L 0.0-16 .6 high Not Available [facility] (Lab) [address] [place], [address], 02/19/2024 12:25:51 02/19/20 24 02/19/2024 TSH thyroid-stim ulating hormone 1.370 uIU/m L 0.465- 4.680 Not Available [facility] (Lab) [address] [place], [address], 02/19/2024 12:33:09 02/19/20 24 02/19/2024 VITAM IN B12 (SCOOBY JOSE LUIS ) vb12 527 pg/mL 239-93 1 Not Available [facility] (Lab) [address] [place], [address], 02/19/2024 13:33:52 02/19/20 24 02/19/2024 FOLAT E, SERUM /PLAS MA folate 11.8 NG/mL 2.76-2 0.0 Not Available [facility] (Lab) [address] [place], [address], 02/19/2024 13:33:57 02/19/20 24 02/19/2024 VITAM IN D 25-HY DROXY vd25oh 55.1 NG/mL 30-100 Vitam in D Statu s: Defic ient: <20 ng/mL Insuf ficie nt: 20-29 ng/mL Suffi cient : 30-10 0 ng/mL Not Available [facility] (Lab) [address] [place], [address], 02/19/2024 13:34:08 02/19/20 24 02/19/2024 HEMOG LOBIN A1C HA1C 7.4 % 4.0-6. 0 high Diabe dick Scree brennon Crite kena: <5.7% Consi stent with absen ce of diabe dick 5.7-6 .4% Consi stent with incre ased risk for diabe dick (pred iabet es) >OR=6 .5% Consi stent with diabe dick REFER ENCE: Diabe dick Care 2016, 39(Jones ppl.1 ):s13 -s22 Not Available [facility] (Lab) [address] [place], [address], 02/19/2024 15:16:55 09/29/19 24 09/29/2023 NM, myoca rdial perfu arslan scan No observ ation record ed. [facility] [address], [place], [address], 12/07/2023 12:34:17 12/20/19 24 12/20/2023 fine needl e aspir ation , ultra sound guide d, thyro id (PROC ) No observ ation record ed. [email or web address] [address], [place], [address], 12/21/2023 09:56:14 08/20/19 25 08/17/2024 LDCT, chest , for lung cance r scree brennon No observ ation record ed. [address], [place], [address], 08/19/2024 07:46:17 11/01/19 25 10/31/2024 imagi ng/di agnos tic resul t No observ ation record ed. [address], [place], [address], 10/31/2024 13:16:04 Result Notes None recorded. Problems Name Problem SNOMED Code Status Onset Date Resolution Date Notes Provider Name and Address Organization Details Recorded Time Vitamin D deficiency 34656294 Active 2022 Christine Barrios MD [address], [place], [address] , [employer] 18:33:51 Thrombocytosi s 3804728 Active 2022 Christine Barrios MD [address], [place], [address] , [employer] 18:34:20 Coronary arteriosclero sis 73568738 Active 2022 Christine Barrios MD [address], [place], [address] , [employer] 18:37:16 Essential hypertension 06793659 Active 2022 Christine Barrios MD [address], [address], [place], [address] , [place] [facility] 5 18:37:19 Malignant neoplasm of urinary bladder 746527258 Active 2022 Christine Barrios MD [address], [place], [address] , [place] [facility] 5 18:35:15 Thyroid nodule 576872798 Active 2022 Christine Barrios MD [address], [place], [address] , [place] [facility] 5 18:33:59 Cerebrovascul ar accident 165803352 Active 2022 Christine Barrios MD [address], [place], [address] , [place] [facility] 5 16:10:01 Chronic obstructive pulmonary disease 30776950 Active 2023 Christine Barrios MD [address], [address], [place], [address] , [place] [facility] 5 18:36:41 Proteinuria 07594211 Active 2023 Christine Barrios MD [address], [place], [address] , [place] [facility] 5 18:34:45 Solitary nodule of lung 752052968 Active 2023 Christine Barrios MD [address], [place], [address] , [place] [facility] 5 18:34:23 Cobalamin deficiency 960741303 Active 2023 Christine Barrios MD [address], [address], [place], [address] , [place] [facility] 5 18:37:13 Chronic kidney disease 826067202 Active 2024 Christine Barrios MD [address], [address], [place], [address] , [place] [facility] 5 18:36:35 Hyperlipidemi a 59792260 Active 2018 Not Available [facility] 3 06:53:10 Osteoporosis 89772998 Active 2021 Christine Barrios MD [address], [facility] [address], [place], [address] , [facility] [employer] [facility] 5 18:35:05 Diabetes mellitus 18439468 Active 2018 Not Available [facility] 3 06:53:10 Notes:Medical History: Right CVA without [...] Thyroid nodule biopsy 2023 Occupational History: Retired [employer] Problem Notes None recorded. Procedures Surgical History Date Name Laterality Status Provider Name and Address Organization Details Recorded Time 10/12/19 Medicare Wellness CPT Code, subsequent completed Desmond Rojas LPN [place] [facility] [employer] 10/12/2023 08:19:01 10/12/19 Advanced Care Planning completed Desmond Rojas LPN [place] [facility] [employer] 10/12/2023 16:14:47 02/22/20 Transitional_Care _Management completed STACEY Berkowitz [address], [facility] [address], [place], [address], [facility] [employer] [facility] 02/21/2023 15:45:18 01/05/20 procedure on urinary bladder completed Not Available [facility] 07/20/2022 04:42:53 11/11/19 procedure on urinary bladder completed Not Available [facility] 07/20/2022 04:42:53 07/15/19 procedure on urinary bladder completed Not Available [facility] 07/20/2022 04:42:53 09/12/19 19 transurethral excision of neoplasm of urinary bladder completed Not Available [facility] 07/20/2022 04:42:53 01/17/20 18 transurethral excision of neoplasm of urinary bladder completed Not Available [facility] 07/20/2022 04:42:53 01/17/20 18 Cystoscopy and treatment completed Not Available [facility] 07/20/2022 04:42:53 10/26/19 18 Cystoscopy and treatment completed Not Available [facility] 07/20/2022 04:42:53 03/20/20 17 Tlh w/t/o 250 g or less completed Not Available [facility] 07/20/2022 04:42:53 03/20/20 17 robotic assisted surgery completed Not Available [facility] 07/20/2022 04:42:53 Tubal Ligation completed Not Available [facility] 07/20/2022 04:42:53 transurethral excision of neoplasm of urinary bladder completed Not Available [facility] 07/20/2022 04:42:53 excision of urinary bladder completed Mareblla Reyes MA [facility] [employer] [facility] 02/21/2023 14:20:24 tonsillectomy completed MARIXA Faith [place] [facility] [employer] [facility] 09/06/2023 12:51:39 Imaging Results None recorded. Procedure [...] Organization Details Last Updated DateTime 167.64 cm 22.4 kg/m2 33633.3 4 g 97.5 [degF] 84 /min 132 mm[Hg] 60 mm[Hg] 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 [place] [employer] [facility] 5 15:45:13 Date Recorded Body height Body mass index (BMI) Body weight Body temperature Heart rate Systolic blood pressure Diastolic blood pressure Provider Name and Address Organization Details Last Updated DateTime 5 167.64 cm 22 kg/m2 97303.5 6 g 97.6 [degF] 78 /min 108 mm[Hg] 62 mm[Hg] 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 [facility] [employer] [facility] 5 11:32:07 Date Recorded Body height Body mass index (BMI) Body weight Body temperature Heart rate Systolic blood pressure Diastolic blood pressure Provider Name and Address Organization Details Last Updated DateTime 4 167.64 cm 20.2 kg/m2 69488.0 5 g 97.4 [degF] 78 /min 122 mm[Hg] 60 mm[Hg] Patricia Adamson Avery [facility] [employer] [facility] 4 15:23:39 Date Recorded Heart rate Heart rate Respiratory rate Provider Name and Address Organization Details Last Updated DateTime 10/17/2024 71 /min 71 /min 15 /min Christine Barrios MD [address] [place] [address], [place], [address], [facility] [employer] [facility] 10/17/2024 12:12:21 Date Recorded Body height Body mass index (BMI) Body weight Body temperature Oxygen saturation Oxygen saturation in Arterial blood by Pulse oximetry Systolic blood pressure Diastolic blood pressure Provider Name and Address Organization Details Last Updated DateTime 5 167.64 cm 21.5 kg/m2 01512.7 9 g 98.4 [degF] 96 % 96 % 106 mm[Hg] 64 mm[Hg] Josie Slaughter MA [facility] [employer] [facility] 5 11:49:11 Date Recorded Body height Body mass index (BMI) Body weight Body temperature Heart rate Respiratory rate Oxygen saturation Oxygen saturation in Arterial blood by Pulse oximetry Systolic blood pressure Diastolic blood pressure Provider Name and Address Organization Details Last Updated DateTime 4 167.64 cm 22.3 kg/m2 05032.7 5 g 97.8 [degF] 88 /min 16 /min 95 % 95 % 124 mm[Hg] 62 mm[Hg] Desmond Rojas LPN [facility] 4 15:22:31 Social History Question Answer Notes LastModified by Organization Details LastModified Time Tobacco Smoking Status Current Every Day Smoker Not Available [facility] 07/20/2022 04:33:42 Do You Have An Advance Directive? No Patient Given Informati on. Information not available 10/12/2023 Are You Blind Or Do You Have Difficulty Seeing? No [id number] Information not available 07/20/2022 What Is Your Level Of Caffeine Consumption? Occasional [id number] Information not available 07/20/2022 How Much Tobacco Do You Chew? None [id number] Information not available 07/20/2022 In The 14 Days Before Symptom Onset, Have You Had Close Contact With A Laboratory-confi rmed COVID-19 While That Case Was Ill? No [id number] Information not available 07/20/2022 In The 14 Days Before Symptom Onset, Have You Had Close Contact With A Person Who Is Under Investigation For COVID-19 While That Person Was Ill? No [id number] Information not available 07/20/2022 Are You Deaf Or Do You Have Serious Difficulty Hearing? No [id number] Information not available 07/20/2022 What Type Of Diet Are You Following? REGULAR [id number] Information not available 07/20/2022 Which Illicit Or Recreational Drugs Have You Used? None [id number] Information not available 07/20/2022 What Is The Highest Grade Or Level Of School You Have Completed Or The Highest Degree You Have Received? [email or web address] Information not available 10/12/2023 Do You Have An Electrostatic Air Filter? No Information not available 07/31/2023 Have There Been Any Changes To Your Family Or Social Situation? No [id number] Information not available 07/20/2022 What Is The Fluoride Status Of Your Home? Unknown Information not available 10/12/2023 Are There Any Guns Present In Your Home? No MIGRATION.0301 [id number] Information not available 07/20/2022 Do You Have A Humidifier? No Information not available 07/31/2023 Do You Use Insect Repellent Routinely? No MIGRATION.0301 [id number] Information not available 07/20/2022 Where Do You Live? [facility] MIGRATION.0301 [id number] Information not available 07/20/2022 Presence Of Domestic Violence No [email or web address] Information not available 10/12/2023 Guns Present In The Home? No [email or web address] Information not available 10/12/2023 Are You Able To Care For Yourself? Yes [email or web address] Information not available 10/12/2023 Are You Blind Or Do Yo Have Difficulty Seeing? No [email or web address] Information not available 10/12/2023 Are You Deaf Or Do You Have Serious Difficulty Hearing? No [email or web address] Information not available 10/12/2023 General Stress Level? Low [email or web address] Information not available 10/12/2023 Live Alone Of With Others? With Others Lives With Daughter. Information not available 10/12/2023 Do You Have A Medical Power Of Drawer Maker? No MIGRATION.0301 [id number] Information not available 07/20/2022 Do You Have Moisture Problems In Your Home? No Information not available 07/31/2023 What Was The Date Of Your Most Recent Tobacco Screening? 10/17/2024 Information not available 10/17/2024 What Is Your Current Pack Years? [email or web address] MIGRATION.0301 300037 Information not available 07/20/2022 Do You Have Any Pets? Yes MIGRATION.0301 256934 Information not available 07/20/2022 What Is Your Relationship Status? MIGRATION.0301 [id number] Information not available 07/20/2022 Do You Use Your Seat Belt Or Car Seat Routinely? Yes Information not available 07/31/2023 Do You Have Smoke And Carbon Monoxide Detectors In Your Home? Yes MIGRATION.0301 591412 Information not available 07/20/2022 At What Age Did You Start Smoking Tobacco? 14 MIGRATION.0301 042508 Information not available 07/20/2022 Are You Passively Exposed To Smoke? Yes [email or web address] Information not available 10/12/2023 Are There Any Smokers In Your House? Yes MIGRATION.0301 609383 Information not available 07/20/2022 How Much Tobacco Do You Smoke? 1 PPD MIGRATION.0301 822121 Information not available 07/20/2022 Do You Use Sunscreen Routinely? No MIGRATION.0301 516581 Information not available 07/20/2022 Has Tobacco Cessation Counseling Been Provided? Yes Information not available 10/12/2023 On What Date Was Tobacco Cessation Counseling Provided? 10/12/2023 [email or web address] Information not available 10/12/2023 How Many Years Have You Smoked Tobacco? 47 MIGRATION.0301 111983 Information not available 07/20/2022 Have You Recently Traveled Abroad? No MIGRATION.0301 120815 Information not available 07/20/2022 Do You Have Difficulty Walking Or Climbing Stairs? No MIGRATION.0301 313129 Information not available 07/20/2022 Do You Have Any Dietary Restrictions? No MIGRATION.0301 732256 Information not available 07/20/2022 Sex: Female Functional Status Question Answer Note LastModified by Organizat ion Details LastModified Time Do you or have you ever used smokeless tobacco? Never used smokeless tobacco MIGRATION.12376 09856 Information not available 07/20/2022 Are you currently employed? No Information not available 07/27/2023 Have you been exposed to chemicals or toxins? not that aware of Information not available 07/31/2023 Do you have transportation difficulties? No MIGRATION.95245 20704 Information not available 07/20/2022 Are you able to care for yourself? Yes MIGRATION.92954 13906 Information not available 07/20/2022 Do you have difficulty dressing or bathing? No MIGRATION.69428 32971 Information not available 07/20/2022 Do you or have you ever used e-cigarettes or vape? Former user of electronic cigarettes Vape MIGRATION.60672 91441 Information not available 07/20/2022 What is your exercise level? Occasional active lifestyle MIGRATION.33164 54362 Information not available 07/20/2022 Do you use any illicit or recreational drugs? No MIGRATION.47157 60931 Information not available 07/20/2022 Do you or have you ever used any other forms of tobacco or nicotine? Yes MIGRATION.08767 98902 Information not available 07/20/2022 What is your level of alcohol consumption? None MIGRATION.47414 88723 Information not available 07/20/2022 Are you able to walk? YESWOREST MIGRATION.08154 42589 Information not available 07/20/2022 Do you have difficulty doing errands alone? No MIGRATION.03230 33710 Information not available 07/20/2022 What is your occupation? Retired MIGRATION.84712 76921 Information not available 07/20/2022 Mental Status Question Answer Note LastModified by Organizat ion Details LastModified Time Do you feel stressed (tense, restless, nervous, or anxious, or unable to sleep at night)? [id number] Information not available 10/12/2023 Do you have difficulty concentrating, remembering or making decisions? No MIGRATION.48186338 26 Information not available 07/20/2022 Family History Relationship Description Onset Age of this Age Resolved Age Notes LastModified by Organization Details LastModified Time Father Hypertensive disorder MIGRATION.824 [id number] Not available 07/20/2022 04:42:59 Father Cerebrovascu lar accident Not available 0 09/12/2024 11:22:59 Mother Diabetes mellitus MIGRATION.739 [id number] Not available 07/20/2022 04:42:59 Sister Leukemia [email or web address] Not availa ble 09/12/2024 11:22:59 Sister Disorder of thyroid gland PT REPORT S THAT HER SISTER TAKES THYROI D MEDICA TION [email or web address] Not available 10/12/2023 15:00:13 Maternal Uncle Heart disease 1 1 [email or web address] Not available 2023 11:51:03 Brother Leukemia [email or web address] Not avail able 09/12/2024 11:22:59 Medical History [...] HAVE YOU BEEN HOSPITALIZED OR SEEN IN [facility] IN THE PAST YEAR ? [...] high-dose, quadrivalent, PF 2 completed 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 [employer] [facility] [employer] 09/12/2024 11:30:10 COVID-19, mRNA, LNP-S, bivalent, PF, 30 mcg/0.3 mL dose 2 completed 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 [employer] [facility] [employer] 09/12/2024 11:30:10 influenza, unspecified formulation 9 completed 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, [employer] [facility] [employer] 09/12/2024 11:30:10 Influenza, high-dose, quadrivalent, PF 2 completed Not Available [facility] 01/17/2023 04:09:30 COVID-19, mRNA, LNP-S, PF, 100 mcg/0.5mL dose or 50 mcg/0.25mL dose 1 completed Patricia Adamson RMAvery [place], [place] [facility] 09/12/2024 11:30:10 COVID-19, mRNA, LNP-S, PF, 100 mcg/0.5mL dose or 50 mcg/0.25mL dose 1 completed Patricia Adamson RMAvery [place], [place] [facility] 09/12/2024 11:30:10 COVID-19, mRNA, LNP-S, PF, 100 mcg/0.5mL dose or 50 mcg/0.25mL dose 1 completed 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, [place] - [facility] 09/12/2024 11:30:10 Pneumococcal conjugate PCV20, polysaccharide [id number] conjugate, adjuvant, PF 2 completed Not Available [facility] 01/17/2023 04:09:30 Influenza, high-dose, quadrivalent, PF 1 completed Not Available [facility] 01/17/2023 04:09:30 Influenza, split virus, quadrivalent, PF 9 completed Not Available [facility] 01/17/2023 04:09:31 Influenza, high-dose, quadrivalent, PF 3 completed Terence Barber MD [address], [place], [address], [facility] 05/09/2023 14:02:28 Influenza, high-dose, trivalent, PF 4 completed 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, [facility] 02/15/2024 16:06:54 Past Encounters Encounter ID Performer Location Encounter Start Date Encounter Closed Date Diagnosis/Indication Diagnosis SNOMED-CT Code Diagnosis ICD10 Code Diagnosis Note [id number] Terence stapleton MD [facility] [place] [address] [place] [address] 09/10/2020 00:00:00 09/10/2020 13:24:11 [id number] Terence stapleton MD [facility] Internal Med [facility] [address] [place] [address] 1 10/26/2020 00:00:00 10/26/2020 15:38:10 [id number] Terence stapleton MD [facility] Internal Med [facility] [address] [place] [address] 01/26/2021 00:00:00 01/26/2021 20:34:41 [id number] MD BLAYNE RamonS_G Internal Med [facility] [address] [place] [address] 1 04/13/2021 00:00:00 04/13/2021 11:52:13 [id number] MD BLAYNE RamonS_G Internal Med [facility] [address] [place] [address] 09/06/2021 00:00:00 09/06/2021 15:03:42 [id number] Terence stapleton MD [facility] Internal Med [facility] [address] [place] [address] 1 01/10/2022 00:00:00 01/10/2022 14:21:12 [id number] Terence stapleton MD [facility] Internal Med [facility] [address] [place] [address] 1 05/06/2022 00:00:00 05/06/2022 15:46:21 [id number] Terence stapleton MD [facility] Internal Med [facility] [address] [place] [address] 1 11/07/2022 13:58:49 11/07/2022 14:26:23 Acid reflux 630074486 K21.9 on omeprazole , she is aware of risks, benefits, side effects Type 2 natan betes mellitus without complication 597449054 E11.9 on victoza, metformin pt is aware of side effects, risks, benefitspt denies any personal or family history of MEN II or MTC, denies and personal history of pancreatit ispt knows to call the office if any severe n/v or abdominal pain DM eye exam and daily foot checks recommende d Hyperlipidemia 44426474 E78.5 on atorvastat in Nicotine dependence 5629 4008 F17.200 3 minutes spent with patient discussing risks, cessation options. Patient encouraged to quit. LDCT- 09/2021 Chest pain 86878296 R07. 9 She did see cardiology - Dr. Rivas has not done her echo or her stress Tran in the interim if pain recurs Chronic ob structive pulmonary disease 27771725 J44.9 on proair prn, didn't picker and packer the Anoro, doesn't think she needs it Steatotic liver disease 834300260 K76.0 incidental ly noted on LDCT, declines any referral or liver u/s Multiple n odules of lung 253434149 R91.8 Next LDCT due 09/2022 History of malignant neoplasm of bladder 374430288 Z85.51 follows urology at [facility] check declined [id number] Z53.20 risks explained including missed cancer and Screening for malignant neoplasm of colon 536311201 Z12.11 Pt refuses screening colonoscop y but agrees to Cologuard. All risks explained to her, including that Cologuard may miss 8% of cancers.Sh betsy reports she has the box at home, encouraged her to do this Osteoporosis 70987449 M8 1.0 on alendronat eshe is aware to take with a full glass of water and not lie down for 60 min after taking on OTC calcium, vitamin d weight bearing exercise recommende d Heart murmur 66644751 R0 1.1 get re-estabis hed with cardiology as above Adult heal th examination 432549161 Z00.01 Depression screening 171 827515 Z13.31 Screening mammography 24 862045 Z12.31 Vitamin D deficiency 347 05228 E55.9 on OTC supplement [id number] Terence stapleton MD [facility] [place] [address] [place] [address] 02/21/2023 14:02:58 02/21/2023 14:49:38 Transition of care 7719768885 105 Z75.8 History of total cystectomy 131333091 Z90.6 has upcoming appt with surgeon on ordered Sepsis 21720717 A41.9 currently has PICC linefollow ing [facility] at [facility]heena[facility] daugther will call today to get her follow up appt scheduled Acid reflux 127523318 K2 1.9 on omeprazole , she is aware of risks, benefits, side effects Type 2 natan betes mellitus without complication 099866844 E11.9 on victoza, metformin pt is aware of side effects, risks, benefitspt denies any personal or family history of MEN II or MTC, denies and personal history of pancreatit ispt knows to call the office if any severe n/v or abdominal pain DM eye exam and daily foot checks recommende d Hyperlipidemia 51990730 E78.5 on atorvastat in Nicotine dependence 5629 4008 F17.200 3 minutes spent with patient discussing risks, cessation options. Patient encouraged to quit. LDCT- 09/2021- was ordered 10/2022 Chest pain 77593673 R07. 9 She did see cardiology - Dr. Rivas has not done her echo or her stress Tran in the interim if pain recurs Chronic ob structive pulmonary disease 92835294 J44.9 on proair prn, didn't picker and packer the Anoro, doesn't think she needs it Steatotic liver disease 786177949 K76.0 incidental ly noted on LDCT, declines any referral or liver u/s Multiple n odules of lung 490569559 R91.8 Next LDCT due 09/2022 History of malignant neoplasm of bladder 151355129 Z85.51 follows urology at [facility] Well woman health check declined [id number] Z53.20 risks explained including missed cancer and Screening for malignant neoplasm of colon 084846534 Z12.11 Pt refuses screening colonoscop y but agrees to Cologuard. All risks explained to her, including that Cologuard may miss 8% of cancers.Sh e reports she has the box at home, encouraged her to do this was ordered 10/2022 Osteoporosis 56159644 M8 1.0 on alendronat eshe is aware to take with a full glass of water and not lie down for 60 min after taking on OTC calcium, vitamin d weight bearing exercise recommende d Screening mammography 24 331749 Z12.31 was ordered 10/2022 Vitamin D deficiency 347 39484 E55.9 on OTC supplement Muscle weakness 19746197 M62.81 she will benefit from walker to assist with safely completing her ADLs both in and out of the house Abdominal abscess 472221 08 K65.1 as above [id number] Terence stapleton MD [facility] [place] [address] [facility] [place] [address] 04/20/2023 15:18:46 04/20/2023 16:21:10 Screening - NAD 544853448 Z13.9 C-scope: cologuard was ordered 11/07/2022 , [...] above Screening for malignant neoplasm of breast 166589398 Z12.39 Gynecologi c examination 67101351 Z01.419 Chronic ob structive pulmonary disease 35057900 J44.9 Seen on LDCTGet a referral to Dr Barrios Smoker 22493102 F17.200 Advised to quit smoking! LDCT 09/28/2021 : Emphysema, CAD Coronary arteriosclerosis 32918368 I25.10 Seen on LDCT, get a referral to cardiology Type 2 natan betes mellitus without complication 831901779 E11.9 On jardiance 25mg dailyOn metformin 500mg bidOn victozaGet labs Essential hypertension 18835399 I10 On lisinopril 2.5mg daily Hyperlipidemia 34127012 E78.5 On atorvastat in 40mg dailyGet labs Serum johny min B12 below reference range 508229720 R79.89 Vitamin D deficiency 347 40826 E55.9 Gastroesop hageal reflux disease without esophagitis 441606616 K21.9 On omeprazole Get an EGD done Malignant neoplasm of urinary bladder 485522927 C67.9 Dr Rodríguez urologyS/p surgeryNow has cath and bag Nausea 062710472 R11.0 On zorfran PRN Low back pain 172545336 M54.50 Get xrays, may need to see pain management Screening for malignant neoplasm of colon 241987105 Z12.11 Administra tion of influenza vaccine 59141588 Z23 Screening mammography 24 114805 Z12.31 [id number] Terence stapleton MD [facility] [place] [address] [facility] [place] [address] 07/27/2023 11:50:21 07/27/2023 12:37:47 Screening - NAD 389424569 Z13.9 C-scope: cologuard was ordered 11/07/2022 , [...] ing of the above Gynecologi c examination 90420514 Z01.419 Chronic ob structive pulmonary disease 55023645 J44.9 LDCT 06/14/2023 : Next in one year Dr Barrios apt 07/31/2023 Smoker 30684297 F17.200 Advised to quit smoking! LDCT 09/28/2021 : Emphysema, CADLDCT 06/14/2023 : Next in one year Coronary arteriosclerosis 28315557 I25.10 Seen on LDCT, get a referral to cardiology Type 2 natan betes mellitus without complication 073027284 E11.9 On jardiance 25mg dailyOn metformin 500mg bid, will d/c this also as she has noted some low sugars and A1C is stable on 07/05/2023 Off the victozaGet labs Essential hypertension 76849003 I10 On lisinopril 2.5mg daily Hyperlipidemia 99748151 E78.5 On atorvastat in 40mg dailyDiet and exercise is neededGet labs Serum johny min B12 below reference range 233463390 R79.89 Get on B12 weekly for 4 weeks and then monthly for 3 months and repeat the labs Vitamin D deficiency 347 82941 E55.9 Gastroesop hageal reflux disease without esophagitis 110886486 K21.9 On omeprazole Get an EGD done Malignant neoplasm of urinary bladder 275477178 C67.9 Dr Rodríguez urologyS/p surgeryNow has cath and bag Nausea 888980742 R11.0 On zorfran PRN Low back pain 585854647 M54.50 Get xrays, may need to see pain management Xrays notd 06/14/2023 Screening for malignant neoplasm of colon 895943038 Z12.11 Hyperkalemia 23924948 E8 7.5 Repeat the labs Proteinuria 99784471 R80 .9 Thrombocytosis 2626937 D 75.839 Repeat the labs Hypothyroidism 42144362 E03.9 Get US thyroid and repeat the labsMay need to be on synthroid [id number] Christine Barrios MD [facility] Pulmonolo [facility] [place] [address] [place], [place] [address] 07/31/2023 10:53:34 08/01/2023 09:00:04 Solitary nodule of lung 090837585 R91.1 Chronic cough 28576472 R 05.3 R06.00 T78.40XA D89.9 [id number] Gaby Stout MD [facility] ENT [place] [address] [place] [address] 09/28/2023 11:28:55 09/29/2023 10:51:01 Thyroid nodule 370605989 E04.1 [id number] Terence stapleton MD [facility] Internal [facility] [address] [place] [address], [address] [address] 10/12/2023 14:59:09 10/12/2023 16:08:46 Screening - NAD 522064978 Z13.9 C-scope: cologuard was ordered 11/07/2022 , [...] ing of the above Gynecologi c examination 94856062 Z01.419 Chronic ob structive pulmonary disease 92678969 J44.9 LDCT 06/14/2023 : Next in one year Dr Sophie newman 07/31/2023 Smoker 98636126 F17.200 Advised to quit smoking! LDCT 09/28/2021 : Emphysema, CADLDCT 06/14/2023 : Next in one year Coronary arteriosclerosis 24352787 I25.10 ECHO 07/27/2023 : EF 55%Stress test 09/29/2023 : Negative Dr Graf 2023 : Next apt in 3 months Type 2 natan betes mellitus without complication 684454237 E11.9 On jardiance 25mg dailyOn metformin 500mg bid, will d/c this also as she has noted some low sugars and A1C is stable on 07/05/2023 Off the victozaGet labs Essential hypertension 80490923 I10 On lisinopril 2.5mg daily Hyperlipidemia 72705009 E78.5 On atorvastat in 40mg dailyDiet and exercise is neededGet labs Serum johny min B12 below reference range 727220716 R79.89 Repeat the labs Vitamin D deficiency 347 39572 E55.9 Gastroesop hageal reflux disease without esophagitis 251655848 K21.9 On omeprazole Get an EGD done Malignant neoplasm of urinary bladder 587921386 C67.9 Dr Rodríguez urologyS/p surgeryNow has cath and bag Nausea 428318094 R11.0 On zorfran PRN Low back pain 602718673 M54.50 Get xrays, may need to see pain management Xrays notd 06/14/2023 Screening for malignant neoplasm of colon 568215488 Z12.11 Hyperkalemia 56968650 E8 7.5 Repeat the labs Proteinuria 58371084 R80 .[address] Eligio Sanchez calcitriol On VIT DOn fosamax Thrombocytosis 9210555 D 75.839 Repeat the labs Hypothyroidism 44569205 E03.9 US thyroid 08/10/2023 : Get FNACGet on synthroid Adult heal th examination 714167536 Z00.00 Screening for disorder 449509221 Z13.9 Thyroid nodule 587010348 E04.1 Dr Stout 09/28/2023 to get FNAC [id number] Terence stapleton MD [facility] Internal [facility] [address] [facility], [facility] [address] [place] [address] 02/15/2024 15:12:37 02/15/2024 16:04:44 Chronic obstructive pulmonary disease 34509662 J44.9 LDCT 06/14/2023 : Next in one year Dr Barrios apt 07/31/2023 Screening - NAD 83562620 3 Z13.9 C-scope: cologuard was ordered 11/07/2022 [...] ing of the above Gynecologi c examination 55680614 Z01.419 Smoker 58529942 F17.200 Advised to quit smoking! LDCT 09/28/2021 : Emphysema, CADLDCT 06/14/2023 : Next in one year Coronary arteriosclerosis 50707537 I25.10 ECHO 07/27/2023 : EF 55%Stress test 09/29/2023 : Negative Dr Graf 2023 : Next apt in 3 months Type 2 natan betes mellitus without complication 564221598 E11.9 On jardiance 25mg dailyOn metformin 500mg bid, was told d/c this also as she has noted some low sugars and A1C was stable on 07/05/2023 , however she is still taking thisOff the victozaGet labs Essential hypertension 56382759 I10 On lisinopril 2.5mg daily Hyperlipidemia 12679871 E78.5 On atorvastat in 40mg dailyDiet and exercise is neededGet labs Serum johny min B12 below reference range 428474070 R79.89 Repeat the labs Vitamin D deficiency 347 43464 E55.9 Gastroesop hageal reflux disease without esophagitis 873455700 K21.9 On omeprazole Get an EGD done Malignant neoplasm of urinary bladder 974019611 C67.9 Dr Rodríguez urologyS/p surgeryNow has cath and bag Nausea 056929765 R11.0 On zorfran PRN Low back pain 272489762 M54.50 Get xrays, may need to see pain management Xrays notd 06/14/2023 Screening for malignant neoplasm of colon 186531159 Z12.11 Proteinuria 23047536 R80 .[address] Del Valle IJEverett calcitriol On VIT DOn fosamax Thrombocytosis 8061354 D 75.839 Repeat the labs Hypothyroidism 41947729 E03.9 US thyroid 08/10/2023 : Get FNACS/p bx: Neg 12/27/[address] Pineda et labs Screening for osteoporosis 434932260 Z13.820 Administra tion of influenza vaccine 20964222 Z23 [id number] Terence stapleton MD [facility] [address] [facility], [facility] [address] [place] [address] 06/13/2024 15:05:05 06/13/2024 16:32:42 Chronic obstructive pulmonary disease 64333253 J44.9 LDCT 06/14/2023 : Next in one year Dr Barrios apt 07/31/2023 Screening - NAD 93863694 3 Z13.9 C-scope: cologuard was ordered 11/07/2022 [...] ing of the above Gynecologi c examination 42158692 Z01.419 Smoker 66527895 F17.200 Advised to quit smoking! LDCT 09/28/2021 : Emphysema, CADLDCT 06/14/2023 : Next in one year Coronary arteriosclerosis 86321080 I25.10 ECHO 07/27/2023 : EF 55%Stress test 09/29/2023 : Negative Dr Graf 2023 : Next apt in 3 months Type 2 natan betes mellitus without complication 540968502 E11.9 On jardiance 10mg dailyOn metformin 500mg bid, was told d/c this also as she has noted some low sugars and A1C was stable on 07/05/2023 , however she is still taking thisOff the Road HeroMore diet and exercise Essential hypertension 25696230 I10 On lisinopril 2.5mg daily Hyperlipidemia 88032116 E78.5 On atorvastat in 40mg dailyDiet and exercise is neededGet labs Serum johny min B12 below reference range 590205106 R79.89 Repeat the labs Vitamin D deficiency 347 50676 E55.9 Gastroesop hageal reflux disease without esophagitis 738850478 K21.9 On omeprazole Get an EGD done Malignant neoplasm of urinary bladder 227773775 C67.9 Dr Rodríguez urologyS/p surgeryNow has cath and bag Nausea 732283459 R11.0 On zorfran PRN Low back pain 319594046 M54.50 Get xrays, may need to see pain management Xrays notd 06/14/2023 Screening for malignant neoplasm of colon 811246181 Z12.11 Proteinuria 78428667 R80 .[address] Eligio Sanchez calcitriol On VIT DOn fosamax Thrombocytosis 7010601 D 75.839 Repeat the labsAlso refer to hematology Hypothyroidism 21839632 E03.9 US thyroid 08/10/2023 : Get FNACS/p bx: Neg 12/27/[address] Pineda et labs Screening for osteoporosis 047940254 Z13.820 Screening mammography 24 315053 Z12.31 Cigarette smoker 1664479 7 F17.923 [id number] Terence stapleton MD [facility] [address] [facility] [place] [address] 09/12/2024 11:21:52 09/12/2024 12:16:54 Chronic obstructive pulmonary disease 72917161 J44.9 LDCT 06/14/2023 : Next in one year Dr Sophie newman 07/31/2023 Screening - NAD 48204296 3 Z13.9 C-scope: cologuard was ordered 11/07/2022 [...] ing of the above Gynecologi c examination 20926756 Z01.419 Smoker 50961860 F17.200 Advised to quit smoking! counselled regarding her smoking, she states that she still smokes 1PPDToday 09/12/2024 she has declined any NRT or chantix, states that she did take chantix in the past and it made her feel weird LDCT 09/28/2021 : Emphysema, CADLDCT 06/14/2023 : Next in one yearLDCT 08/17/2024 , next in 3 months Coronary arteriosclerosis 79850797 I25.10 ECHO 07/27/2023 : EF 55%Stress test 09/29/2023 : Negative Dr Graf 2023 : Next apt in 3 months Now wants to see Dr Del Valle [facility], referral was provided to [facility] 09/12/2024 Type 2 natan betes mellitus without complication 472513404 E11.9 On jardiance 10mg dailyOn metformin 500mg bid, was told d/c this also as she has noted some low sugars and A1C was stable on 07/05/2023 , however she is still taking thisOff the victozaHeadCase Humanufacturing labsMore diet and exercise Essential hypertension 53106637 I10 On lisinopril 2.5mg daily Hyperlipidemia 04813040 E78.5 On atorvastat in 40mg dailyDiet and exercise is neededGet labs Serum johny min B12 below reference range 664023382 R79.89 Repeat the labs Vitamin D deficiency 347 64813 E55.9 Gastroesop hageal reflux disease without esophagitis 152691701 K21.9 On omeprazole Get an EGD done Malignant neoplasm of urinary bladder 801091316 C67.9 Dr Rodríguez urologyS/p surgeryNow has cath and bag Nausea 121867069 R11.0 On zorfran PRN Low back pain 766864124 M54.50 Get xrays, may need to see pain management Xrays notd 06/14/2023 Screening for malignant neoplasm of colon 263585335 Z12.11 Proteinuria 55686175 R80 .[address] Del Valle IJOn calcitriol On VIT DOn fosamax Thrombocytosis 0157394 D 75.839 Repeat the labsAlso refer to hematology Hypothyroidism 86168718 E03.9 US thyroid 08/10/2023 : Get FNACS/p bx: Neg 12/27/[address] Pineda et labs Screening for osteoporosis 707619969 Z13.820 Screening mammography 24 394300 Z12.31 Chronic ki dney disease 577224224 N18.[address] Eligio FORD Postmenopausal state 764 58041 Z78.0 [id number] Christine Barrios MD [facility] Pulmonolo gy [address] [address] 10/17/2024 11:35:18 10/17/2024 14:02:32 Solitary nodule of lung 430117044 R91.1 R91.8 Chronic cough 83941493 R 05.3 R06.00 T78.40XA D89.9 Exposure t o Mycobacterium tuberculosis 813672249 Z20.1 Health Concerns Section Related Observation LastModified by Organization Detai ls LastModified Time None Recorded Concern Status LastModified by Organization Details LastModified Time None Recorded Advance Directives Directive N: Patient given information . Payers Insurance Date Sequence Insurance Name Policy Number Policy Terry Covered Member ID Terry Member ID Guarantor Name 10/21/2024 1 [facility] (MEDICARE REPLACEMENT/A DVANTAGE - PPO) [id number] Dea Perez [id number] Dea Perez 10/21/2024 2 [place] [facility] Dea Perez [id number] Dea Perez 10/17/2024 1 [employer] (MEDICARE REPLACEMENT/A DVANTAGE - HMO) Dea Perez [id number] Dea Perez 10/17/2024 2 [place] [facility] Dea Perez [id number] Dea Peerz 10/17/2024 1 [employer] - DUAL ELIGIBLE - GOLD PLUS INTE[employer]ATED (MEDICARE - HMO) Dea Perez [id number] Dea Perez Notes Date Note Type Note [...] well, she is here with her daughter Joycemelissa Gibsonedna Barber MD [address] [place] [address], [address], [address], [facility] [employer] 10/12/2023 16:33:38 4 text/html OV 04/20/2023: Here [...] is here with Joyce Barber MD [address] [facility], [facility] [address], [place], [address], [facility] [employer] [facility] 02/19/2024 18:30:08 5 text/html OV 04/20/2023: Here [...] not yet reported Terence Barber MD [address] [facility], [facility] [address], [place], [address], [facility] [employer] [facility] 06/13/2024 18:30:21 5 text/html OV 04/20/2023: Here [...] do the labs Terence Barber MD [address] [facility], [address], [place], [address], [place] [employer] [facility] [employer] [facility] 09/12/2024 12:24:37 5 text/html Primary care/Referring provider: [...] noPalpitations: noHeartburn: noEdema: no Modified Medical Research [employer]agan [place] (mMRC) Dyspnea Scale - Grade 1Grade 0 [...] chance of dozing. Christine Barrios MD [address] [facility], [place] [address], [place], [address], [facility] [employer] 10/17/2024 12:20:58 OBGyn Episode No OBEpisode recorded.
--- OUTSIDE RECORDS SUMMARY | 2024-11-08 07:02 | XMS_ITS | Patient Health Record ---
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8) Active confirmed Problem Essential hypertension (78986530) Essential hypertension (I10) Active confirmed Problem Chronic kidney disease stage 3A (disorder) (806571871) Chronic kidney disease, stage 3a (N18.31) Active confirmed Encounters Encounter Location Date Provider Diagnosis [facility] [address] [place] [address] 12/27/2023 Shubham Del Valle Chronic kidney disease, stage 3a N18.31 ; Essential hypertension I10 ; Other proteinuria R80.8 ; Edema, unspecified R60.9 and Anxiety disorder, unspecified F41.9 [facility] [address] [place] [address] 12/27/2023 Shubham Del Valle Assessments Encounter Date [...]
--- OUTSIDE RECORDS SUMMARY | 2024-11-08 07:02 | XMS_ITS | Patient Health Record ---
Author Organization [facility] Address [address] [facility] [address] [facility] [address] [place] [address] Care Team Providers Care Underwriting Clerks Supervisor Name Role Phone Shubham Del Valle Unavailable [phone] Reason For Referral No Information Medications Medication SIG (Take, Route, Frequency, Duration) Notes Start Date End Date Status Ergocalciferol 1.25 MG (27701 UT) 1 capsule Orally Once a week for 90 day(s) 09/20/2023 06/22/2025 Active Calcitriol 0.25 MCG TAKE 1 CAPSULE BY MO UTH EVERY DAY FOR 90 DAYS for 90 Active Jardiance 10 MG TAKE 1 TABLET BY REESE TH EVERY DAY for 90 Active Problems Problem Type SNOMED Code ICD Code Onset Dates Problem Status W/U Status Risk Notes Problem Secondary hyperparathyroidism (55991726) Secondary hyperparathyroid ism, not elsewhere classified (E21.1) Active confirmed Problem Vitamin D deficiency (78796974) Vitamin D deficiency, unspecified (E55.9) Active confirmed Problem Hypo-osmolality and or hyponatremia (474103208) Hypo-osmolality and hyponatremia (E87.1) Active confirmed Problem Hyperkalemia (71950339) Hyperkalemia (E87.5) Active confirmed Problem Essential hypertension (38745650) Essential (primary) hypertension (I10) Active confirmed Problem Renal osteodystrophy (92772781) Renal osteodystrophy (N25.0) Active confirmed Problem Edema (20155977) Edema, unspecified (R60.9) Active confirmed Problem Tobacco use (653766867) Tobacco use (Z72.0) Active confirmed Problem Type II diabetes mellitus without complication (342229865) Type 2 diabetes mellitus without complications (E11.9) Active confirmed Problem Chronic kidney disease stage 3 (disorder) (154239275) Chronic kidney disease, stage 3 unspecified (N18.30) Active confirmed Encounters Encounter Location Date Provider Diagnosis [place] [facility] [address] [facility] [address] [place] [address] 02/07/2024 Shubham Del Valle Chronic kidney disea se, stage 2 (mild) N18.2 ; Hyperkalemia E87.5 ; Essential (primary) hypertension I10 ; Edema, unspecified R60.9 ; Renal osteodystrophy N25.0 ; Secondary hyperparathyroidism, not elsewhere classified E21.1 and Vitamin D deficiency, unspecified E55.9 [facility] [address] [place] [address] 05/08/2024 Shubham Del Valle Stage 3 chronic kidn ey disease N18.30 ; Type 2 diabetes mellitus without complications E11.9 ; Hypo-osmolality and hyponatremia E87.1 and Vitamin D deficiency, unspecified E55.9 [facility] [address] [address] 09/25/2024 Shubham Del Valle Chronic kidney disea se, stage 3 unspecified N18.30 ; Essential (primary) hypertension I10 ; Edema, unspecified R60.9 ; Renal osteodystrophy N25.0 ; Secondary hyperparathyroidism, not elsewhere classified E21.1 ; Vitamin D deficiency, unspecified E55.9 ; Type 2 diabetes mellitus without complications E11.9 ; Tobacco use Z72.0 ; Hypo-osmolality and hyponatremia E87.1 and Hyperkalemia E87.5 [facility] [address] [place] [address] 09/25/2024 Shubham Del Valle Assessments Encounter Date [...] Del Valle , 01/01/2025 02:45:00 PM, [address] [facility], [facility] [address], [place], [address],
--- OUTSIDE RECORDS SUMMARY | 2024-11-08 07:02 | XMS_ITS ---
Author Organization [facility] Address [address] [facility] [place] [address] Care Team Providers Care Station Detective Name Role Phone Tenzin Vanna WIGGINS-GUT CARRIER Primary Care Provider [phone] Active Problems Problem Noted Date Diagnosed Date [...]
== END 2024-11-08 06:59 | disposition home or self-care (01) ==
PROVIDERS: PCP Internal Medicine; Visit Provider Internal Medicine Hematology & Oncology
DX: C67.9 Malignant neoplasm of bladder, unspecified (principal); Z90.6 Acquired absence of other parts of urinary tract; Z93.6 Other artificial openings of urinary tract status; N26.1 Atrophy of kidney (terminal); N13.30 Unspecified hydronephrosis; K43.5 Parastomal hernia without obstruction or gangrene
CPT/HCPCS: 74177; Q9967

== ENCOUNTER 2024-12-30 10:22 | Outpatient (CLI) | payer MEDICARE, MEDICAID, SELFPAY ==
--- OUTSIDE RECORDS SUMMARY | 2024-12-30 10:38 | XMS_ITS | Clinical Summary ---
Author Organization [facility] Address [address] [place] [address] Care Team Providers Care Chain Maker Name Role Phone Clara Barber MD Primary [...] Encounters Date Type Department Care Team Description 12/24/2024 External Device Data ST[facility] ABSTRACTION Provider, Abstract 12/04/2024 External Device Data [facility] ABSTRACTION Provider, Abstract 12/03/2024 External Device Data [facility] ABSTRACTION Provider, Abstract 11/14/2024 4:30 PM CDT Telephone Check Up [facility] Oncology and Hematology - [place] [address] [place] [address] Tommei Williamson MD 11/12/2024 External Device Data [facility] ABSTRACTION Provider, Abstract 11/12/2024 External Device Data [facility] ABSTRACTION Provider, Abstract 11/11/2024 Orders Only [facility] Oncology and Hematology - [place] [address] [place] [address] Tommie Williamson MD 11/04/2024 2:30 PM CDT Office Visit [facility] On[facility] and Hematology - [place] [address] [place] [address] Tommie Williamson MD Iron deficiency anemia, unspecified iron deficiency anemia type (Primary Dx); Malignant neoplasm of urinary bladder, unspecified site (CMS/HCC) 10/31/2024 Orders Only [facility] Oncology and Hematology - [place] [address] [place] [address] Tommie Williamson MD 10/23/2024 Orders Only [facility] Oncology and Hematology - [place] [address] [place] [address] Tommie Williamson MD 10/15/2024 External Device Data [...] Date Smoking Tobacco: Every Day Cigarettes 1 51.1 Started: 11/14/1973 Smokeless Tobacco: Never Tobacco Cessation:Ready [...] Care Team (Late st Contact Info) Description 01/10/2025 12:30 PM CDT Office Visit [facility] Oncology and Hematology [facility] [address] [facility] [address] [place] [address] Tommie Williamson MD [address] [place] [address] Health Maintenance Due Date Last [...] DIABETES HBA1C Q 6 MONTHS 08/18/2024 02/19/2024 INFLUENZA VACCINE (#1) 2024 4, 04/20/2023, 04/27/2022, Additional history exists PNEUMOCOCCAL VACCINE 50+ YEARS Completed 05/06/2022 Procedures Procedure Name Priority Date/Time Associated Diagnosis Comments CT ABDOMEN PELVIS W CONTRAST Routine 11/08/2024 8:53 AM CDT JAK2 EXON 12 MUTATION ANALYSIS Routine 10/23/2024 4:15 PM CDT CBC WITH DIFFERENTIAL Routine 10/23/2024 3:23 PM CDT from Last 3 Months Results * CT ABDOMEN PELVIS W CONTRAST (11/08/2024 8:53 AM CDT) Anatomical Region Laterality Modality Abdomen Computed Tomogra phy us Tommie Williamson MD CT ORDERABLES Final Result * JAK2 EXON 12 MUTATION ANALYSIS (10/23/2024 4:15 PM CDT) Blood us Tommie Williamson MD HEMATOLOGY ORDERABLES COM Final Result * CBC WITH DIFFERENTIAL (10/23/2024 3:23 PM CDT) Blood us Tommie Williamson MD HEMATOLOGY ORDERABLES Final Res ult from Last 3 Months Insurance MEDICAID [place] Care Teams Chain Maker Relationship Specialty Start Date End Date Clara Barber MD PCP - General Internal Medicine 11/01/23
--- OUTSIDE RECORDS SUMMARY | 2024-12-30 10:38 | XMS_ITS | Encounter Summary ---
Author Organization [employer] , [facility] Address [address] [place] [address] Phone Care Team Providers Care Hand Knitter Name Role Phone Vanna Dave Primary Care Provider Unava ilable Reason for Visit * Reason Comments Med Refill Encounter Details Date Type Department Care Team (Late st Contact Info) Description 07/31/2021 Refill [place] [facility], [address] [address] João [place] [address] [place] [address] Social History Tobacco Use Types Packs/Day [...] on filedocumented in this encounter Care Teams Hand Knitter Relationship Specialty Start Date End Date Vanna Dave FNP-C PCP - General Nurse Practitioner 02/07/22 documented as of this encounter
--- OUTSIDE RECORDS SUMMARY | 2024-12-30 10:38 | XMS_ITS | Clinical Summary ---
Author Organization [facility] Address [address] [place] [address] Care Team Providers Care Casket Trimmer Name Role Phone TenzinJanesie PROCESS TANK TENDER-C Primary Care Provider Unabrandy ilable Medications atorvastatin [...] Comments Blood Pressure 126/62 06/07/2022 2:57 PM BOX REPAIRER Pulse 68 06/07/2022 2:57 PM BOX REPAIRER Temperature 36.3 C (97.4 F) 06/07/2022 2:57 PM BOX REPAIRER Respiratory Rate 18 06/07/2022 2:57 PM BOX REPAIRER Oxygen Saturation 99% 06/07/2022 2:57 PM BOX REPAIRER Inhaled Oxygen Concentration - - Weight 70.8 kg (156 lb) 02/25/2020 12:00 PM CDT Height 167.6 cm (5' 6) 06/07/2022 2:57 PM BOX REPAIRER Body Mass Index 25.18 02/25/2020 12:00 PM [...] Diabetes: Visual Foot Exam 10/15/2020 Influenza Vaccine (#1) 2025 , 04/21/2022, 04/02/2019, Additional history exists Insurance Medicaid [place] Care Teams Casket Trimmer Relationship Specialty Start Date End Date Vanna Dave FNP-C PCP - General Nurse Practitioner 02/07/22
--- OUTSIDE RECORDS SUMMARY | 2024-12-30 10:38 | XMS_ITS ---
Author Organization [facility] Address [address] [facility] [address] [facility] [address] [place] [address] Care Team Providers Care Tower Observer Name Role Phone Eligio Shubham Unavailable [phone] Encounters Encounter Location Date Provider Diagnosis [place] [facility] [address] [facility] [address] [place] [address] 07/19/2024 Shubham Del Valle Plan Of Treatment Next Appt Details Provider Name:Shubham Eligio , 01/01/2025 02:45:00 PM, [address] [facility], [facility] [address], [place], [address], Progress Notes * MARCY BARKEROB:[birth year] (69 yo F)Acc No.[id number]:07/19/2024 Progress Notes Patient: BINA DESHPANDE Provider: Angela PATRICIA MD, Vince.Avery.C.P, F.A.S.N. :1955 A ge:68 Y S ex:Female Date:07/19/2024 Address:[address] [place] [address] Subjective: * Chief Complaints: * * Medical History: Objective: * Vitals: Assessment: Plan: * Treatment: * Billing Information: * Visit Code: * Procedure Codes: * Electronic signature of Mary Del Valle MD on 12/30/2024 at 10:37 AM CDT Sign off status: Pending * Provider: Angela PATRICIA MD, Vince.Avery.C.P, F.A.S.N. Date: 07/19/2024 Generated for Printing/Faxing/eTransmitting on: 12/30/2024 10:37 AM CDT
--- OUTSIDE RECORDS SUMMARY | 2024-12-30 10:38 | XMS_ITS | Encounter Summary ---
Author Organization [employer] , [facility] Address [address] [place] [address] Phone Care Team Providers Care Spinner Tender Name Role Phone Vanna Dave Primary Care Provider Unava ilable Reason for Visit * Reason Comments Med Refill Encounter Details Date Type Department Care Team (Late st Contact Info) Description 09/02/2021 Refill [place] [employer] [facility], [address] [address] João [place] [address] [place] [address] Social History Tobacco Use Types Packs/Day [...] on filedocumented in this encounter Care Teams Spinner Tender Relationship Specialty Start Date End Date Vanna Dave FNP-C PCP - General Nurse Practitioner 02/07/22 documented as of this encounter
--- OUTSIDE RECORDS SUMMARY | 2024-12-30 10:38 | XMS_ITS | Encounter Summary ---
Author Organization [facility] , [facility] Address [address] [facility] [place] [address] Phone Care Team Providers Care Business Analysis Specialist Name Role Phone Vanna Dave Primary Care Provider Unava ilable Reason for Visit * Reason Comments Med Refill Encounter Details Date Type Department Care Team (Late st Contact Info) Description 08/30/2023 Refill [place] [employer] [facility], [facility] [address] [facility] 15 [place] [address] João De Leon, [address] [facility] [address] [place] [address] Social History Tobacco Use Types [...] on filedocumented in this encounter Care Teams Business Analysis Specialist Relationship Specialty Start Date End Date Vanna Dave FNP-C PCP - General Nurse Practitioner 02/07/22 documented as of this encounter
--- OUTSIDE RECORDS SUMMARY | 2024-12-30 10:38 | XMS_ITS ---
Author Organization [facility] Address [address] [place] [address] [place] [address] Care Team Providers Care Video Editing Internship Name Role Phone Eligio Shubham Unavailable [phone] Medications Medication SIG (Take, Route, Fr equency, [...] W/U Status Risk Notes Problem Tobacco use (488702551) Tobacco use (Z72.0) Active confirmed Problem Hypo-osmolality and or hyponatremia (257535476) Hypo-osmolality and hyponatremia (E87.1) Active confirmed Problem Hyperkalemia (78157464) Hyperkalemia (E87.5) Active confirmed Encounters Encounter Location Date Provider Diagnosis [place] [facility] [address] [address] 09/25/2024 Shubham Del Valle Chronic kidney disea [...] Name:Shubham Eligio , 01/01/2025 02:45:00 PM, [address] [facility] [address], [place], [facility], Progress Notes * MARCY BARKEROB:[birth year] (69 yo F)Acc No.[id number]:09/25/2024 Progress Notes Patient: BINA DESHPANDE Provider: Angela PATRICIA MD, F.A.C.P, F.A.S.N. :1955 A ge:69 Y S ex:Female Date:09/25/2024 Address:[address] [place] [address] Subjective: * Chief Complaints: * * Medical [...] Treatment: * Billing Information: * Visit Code: 61317 Office Visit, Est Pt., Level 4. * Procedure Codes: * Electronic signature of Mary Del Valle MD on 12/30/2024 at 10:38 AM CDT Sign off status: Pending * Provider: Angela PATRICIA MD, F.A.C.P, F.A.S.N. Date: 0 09/25/2024 Generated for Printing/Faxing/eTransmitting on: 0 12/30/2024 10:38 AM CDT
--- OUTSIDE RECORDS SUMMARY | 2024-12-30 10:38 | XMS_ITS ---
Author Organization [facility] Address [address] [facility] [place] [address] Care Team Providers Care High School Librarian Name Role Phone Tenzin Vanna WIGGINS-LICSW Primary Care Provider +1 [phone] Active Problems Problem Noted Date Diagnosed Date [...]
--- OUTSIDE RECORDS SUMMARY | 2024-12-30 10:38 | XMS_ITS | Clinical Summary ---
Author Organization [employer] [facility] Address [address] [facility] [place] [address] Care Team Providers Care Life Science Taxonomist Name Role Phone Vanna Dave ROSALIE-STUCCO WORKER Primary Care Provider [phone] [phone] Source Comments [facility],non-owned Affiliates and Associated Physician Practices is amultiple site organization consisting of ambulatory clinics and hospital sitesin [place], [place], [place]. This disclosure is being madepursuant to the Care Everywhere program and may not contain all information available regarding this patient. Last updated 18.[employer] Allergies No known active allergies Medications * [...] vitamin D, ergocalciferol , (Drisdol) 1.25 MG (89774 UT) capsule Take 1 (one) capsule by [...] days 56 tablet 3 Active HYDROcodone-ac etaminophen (Kelso) 5-325 MG tabletIndicati ons:Malignant neoplasm of posterior [...] Examples: Ensure Plant/Orgain 3 Active HYDROcodone-ac etaminophen (Kelso) 5-325 MG tabletIndicati ons:Abscess,Ma lignant neoplasm of [...] and heating? Not hard at all 02/05/2023 [facility] Occupat ional Health - Occupational Stress [...] place to sleep or slept in a fdc (including now)? No 02/05/2023 Comments No Sex and Gender Information Value Date Recorded Sex Assigned at Not on file Legal Sex Female 4:06 PM PLASTIC FIXTURE BUILDER Gender Identity Not on file Sexual Orientation [...] years 1-dose series) 2015 COVID-19 VACCINE ( - season) 2024 04/27/2022, 05/08/2021, 08/19/2020, Additional history exists DEPRESSION SCREENING 05/22/2024 MEDICARE AWV CALENDAR YEAR 2024 INFLUENZA VACCINE (#1) 2025 , 04/21/2022, 03/22/2022, Additional history exists HEPATITIS B [...] this topic Medical Devices Implanted Type Area Medicine Worker Device Identifier Shelf Expiration Date Model / Serial / Lot Stent Uret 7fr 26cm Sft Tria Implanted:Qty: 1 on 01/24/2023 by Silvano Rodríguez MD at [facility] 09/23/2024 [id number] / / [id number] Stent Uret 7fr 26cm Sft Tria Implanted:Qty: 1 on 01/24/2023 by Silvano Rodríguez MD at [facility] Left: [facility] 04/03/2025 [id number] 0 / [id number] Insurance MEDICAID - OUT OF STATE UHC [...] 9:35 AM 11/06/2019 4:21 PM Care Teams Life Science Taxonomist Relationship Specialty Start Date End Date Vanna Dave APRN-KIM [address] [phone] PCP - General 11/20/20
--- OUTSIDE RECORDS SUMMARY | 2024-12-30 10:38 | XMS_ITS | Encounter Summary ---
Author Organization [employer] , [facility] Address [address] [place] [phone] Phone Care Team Providers Care Computer Applications Developer Name Role Phone Vanna Dave Primary Care Provider Unava ilable Reason for Visit * Reason Comments Med Refill Encounter Details Date Type Department Care Team (Late st Contact Info) Description 06/28/2021 Refill [place] [facility], [address] [address] [place]ão [place] [address] [place] [phone] Social History Tobacco Use Types Packs/Day [...] on filedocumented in this encounter Care Teams Computer Applications Developer Relationship Specialty Start Date End Date Vanna Dave FNP-C PCP - General Nurse Practitioner 02/07/22 documented as of this encounter
[2024-12-30 11:07] LABS: Add Urine Microscopic? YES; Appearance Urine Cloudy (Clear); Glucose Urine UA Negative (Negative); Leukocyte Esterase Ur 3+ LEU/UL (Negative); Nitrate Urine Positive (Negative); Specific Grav Ur 1.010 (1.001-1.035)
[2024-12-30 11:25] LABS: Hematocrit 40.0 % (37.0-47.0); Hemoglobin 12.2 g/dL (12.0-15.0); Immature Granulocyte Percent A 0.3 % (0-0.5); Lymphocytes Absolute Auto 3.68 K/mm3 (0.9-3.2); Mean Corpuscular HGB Conc 30.5 g/dl (32-36); Mean Corpuscular Hemoglobin 29.4 pg (26-34); Mean Corpuscular Volume 96.4 fl (80-100); Nucleated Red Blood Cells Absolute Auto 0.000 K/mm3 (0.0-0.012); Nucleated Red Blood Cells Perc 0.0 % (0.0-0.2); Platelet Count Result 415 k/mm3 (150-375); Red Blood Count 4.15 M/mm3 (4.2-5.4); White Blood Count 9.4 K/mm3 (4.5-10.0)
[2024-12-30 11:37] LABS: Alanine Aminotransferase 15 U/L (6-35); Albumin Level 4.3 g/dL (3.5-5.1); Alkaline Phosphatase 69 U/L (38-126); Anion Gap 9 mmol/L (4-12); Aspartate Amino Transferase 29 U/L (14-36); Bilirubin,Total 0.3 mg/dL (0.2-1.3); Blood Urea Nitrogen 21 mg/dL (7-17); Calcium 9.9 mg/dL (8.4-10.2); Carbon Dioxide 18 mmol/L (22-30); Chloride 112 mmol/L (98-107); Estimated Glomerular Filt Rate 56; Glucose 113 mg/dL (65-110); Potassium 5.5 mmol/L (3.4-5.0); Sodium 139 mmol/L (137-145); Total Protein 7.5 g/dL (6.3-8.2); Uric Acid 4.0 mg/dL (2.5-7.5)
[2024-12-30 11:53] LABS: Hemoglobin A1C 7.3 % (<5.7)
[2024-12-30 12:14] LABS: Thyroid Stimulating Hormone 0.370 uIU/mL (0.465-4.680)
[2024-12-30 16:33] LABS: MALB Creatinine Ratio 32.2 mg/g (0-30)
[2024-12-30 17:09] LABS: Parathyroid Intact 16.6 pg/mL (14.5-75.2)
== END 2024-12-30 10:23 | disposition home or self-care (01) ==
LOC: ANHLAB 10:29
PROVIDERS: PCP Internal Medicine; Visit Provider Specialist
DX: N18.30 Chronic kidney disease, stage 3 unspecified (principal); E78.5 Hyperlipidemia, unspecified; E55.9 Vitamin D deficiency, unspecified; R35.0 Frequency of micturition; E21.3 Hyperparathyroidism, unspecified; R80.9 Proteinuria, unspecified; N39.0 Urinary tract infection, site not specified; R73.09 Other abnormal glucose; E78.41 Elevated Lipoprotein(a); R94.6 Abnormal results of thyroid function studies; Z79.4 Long term (current) use of insulin
CPT/HCPCS: 36415; 80053; 81001; 82043; 82306; 83036; 83970; 84443; 84550; 85025; 87086

== ENCOUNTER 2024-12-30 11:01 | Outpatient (CLI) | payer MEDICARE, MEDICAID, SELFPAY ==
--- OUTSIDE RECORDS SUMMARY | 2024-12-30 11:07 | XMS_ITS | Clinical Summary ---
Author Organization [employer] Address [address] [facility] [place] [address] Care Team Providers Care Director Paid Media Name Role Phone Vanna Dave ROSALIE-HUMAN RESOURCES REPRESENTATIVE Primary Care Provider [phone] Source Comments [facility] [employer],non-owned Affiliates and Associated Physician Practices is amultiple site organization consisting of ambulatory clinics and hospital sitesin [place], [place], [place] and [place]. This disclosure is being madepursuant to the Care Everywhere program and may not contain all information available regarding this patient. Last updated 18.[facility] Allergies No known active allergies Medications * [...] vitamin D, ergocalciferol , (Drisdol) 1.25 MG (04826 UT) capsule Take 1 (one) capsule by [...] days 56 tablet 3 Active HYDROcodone-ac etaminophen ([place]) 5-325 MG tabletIndicati ons:Malignant neoplasm of posterior [...] Examples: Ensure Plant/Orgain 3 Active HYDROcodone-ac etaminophen ([place]) 5-325 MG tabletIndicati ons:Abscess,Ma lignant neoplasm of [...] and heating? Not hard at all 02/05/2023 [facility] - Occupational Stress [...] place to sleep or slept in a detention (including now)? No 02/05/2023 Comments No Sex and Gender Information Value Date Recorded Sex Assigned at Not on file Legal Sex Female 4:06 PM MACHINIST SET UP Gender Identity Not on file Sexual Orientation [...] this topic Medical Devices Implanted Type Area Cmm Inspector Device Identifier Shelf Expiration Date Model / Serial / Lot Stent Uret 7fr 26cm Sft Tria Implanted:Qty: 1 on 01/24/2023 by Silvano Rodríguez MD at [facility] [employer] [facility] 09/23/2024 [id number] / / [id number] Stent Uret 7fr 26cm Sft Tria Implanted:Qty: 1 on 01/24/2023 by Silvano Rodríguez MD at [facility] Left: [facility] [employer] [facility] 04/03/2025 [id number] 0 / [id number] [place] [address] UHC MANAGED MEDICARE ADV Advance Directives * [...] 9:35 AM 11/06/2019 4:21 PM Care Teams Director Paid Media Relationship Specialty Start Date End Date Vanna Dave APRN-KIM [address] [phone] PCP - General 11/20/20
--- OUTSIDE RECORDS SUMMARY | 2024-12-30 11:07 | XMS_ITS ---
Author Organization [facility] Address [address] [place] [address] Care Team Providers Care Tung Nut Grower Name Role Phone Eligio Shubham Unavailable [phone] Encounters Encounter Location Date Provider Diagnosis [place] [facility] [address] [facility] [address] [place] [address] 07/17/2024 Shubham Del Valle Plan Of Treatment Next Appt Details Provider Name:Shubham Eligio , 01/01/2025 02:45:00 PM, [address] [facility], [facility], [place], [address], Progress Notes * MARCY BARKEROB:[birth year] (69 yo F)Acc No.[id number]:07/17/2024 Progress Notes Patient: BINA DESHPANDE Provider: Angela PATRICIA MD, Vince.Avery.C.P, F.A.S.N. :1955 A ge:68 Y S ex:Female Date:07/17/2024 Address:[address] [place] [address] Subjective: * Chief Complaints: * * Medical History: Objective: * Vitals: Assessment: Plan: * Treatment: * Billing Information: * Visit Code: * Procedure Codes: * Electronic signature of Mary Del Valle MD on 12/30/2024 at 11:07 AM CDT Sign off status: Pending * Provider: Angela PATRICIA MD, Vince.Avery.C.P, F.A.S.N. Date: 07/17/2024 Generated for Printing/Faxing/eTransmitting on: 12/30/2024 11:07 AM CDT
--- OUTSIDE RECORDS SUMMARY | 2024-12-30 11:07 | XMS_ITS ---
Author Organization [facility] Address [address] [place] [address] Care Team Providers Care Bridge Manager Name Role Phone Tenzin Vanna WIGGINS-CARD CHECKER Primary Care Provider [phone] Active Problems Problem Noted Date Diagnosed Date [...]
--- OUTSIDE RECORDS SUMMARY | 2024-12-30 11:07 | XMS_ITS | Encounter Summary ---
Author Organization [employer] , [facility] Address [address] [facility] [place] [address] Phone Care Team Providers Care Manager Shop Name Role Phone Vanna Dave Primary Care Provider Unava ilable Reason for Visit * Reason Comments Med Refill Encounter Details Date Type Department Care Team (Late st Contact Info) Description 08/30/2023 Refill [place], [facility] [address] [facility] 15 [place] [address] João De Leon, [address] [facility] [address] [place] [address] Social History Tobacco Use Types [...] on filedocumented in this encounter Care Teams Manager Shop Relationship Specialty Start Date End Date Vanna Dave FNP-C PCP - General Nurse Practitioner 02/07/22 documented as of this encounter
--- OUTSIDE RECORDS SUMMARY | 2024-12-30 11:07 | XMS_ITS | Encounter Summary ---
Author Organization [employer] , [facility] Address [address] [place] [phone] Phone Care Team Providers Care Electric Razor Assembler Name Role Phone Vanna Dave Primary Care Provider Unava ilable Reason for Visit * Reason Comments Med Refill Encounter Details Date Type Department Care Team (Late st Contact Info) Description 09/02/2021 Refill [place] [employer] [facility], [address] [address] [place]ão [place] [address] [place] [phone] Social History Tobacco Use Types Packs/Day [...] on filedocumented in this encounter Care Teams Electric Razor Assembler Relationship Specialty Start Date End Date Vanna Dave FNP-C PCP - General Nurse Practitioner 02/07/22 documented as of this encounter
--- OUTSIDE RECORDS SUMMARY | 2024-12-30 11:07 | XMS_ITS | Patient Health Record ---
Author Organization [facility] Address [address] [place] [address] Care Team Providers Care Chemistry Physics Teacher Name Role Phone Shubham Del Valle Unavailable [phone] Reason For Referral No Information Medications Medication SIG (Take, Route, Frequency, Duration) Notes Start Date End Date Status Ergocalciferol 1.25 MG (84432 UT) 1 capsule Orally Once a week; Duration: 90 day(s) 09/20/2023 06/22/2025 Active Calcitriol 0.25 MCG TAKE 1 CAPSULE BY [place] UTH EVERY DAY; Duration: 90 Active Sodium Bicarbonate 650 MG TAKE 2 TABLETS BY MOUTH TWICE A DAY DIRECTED; Duration: 90 Active Jardiance 10 MG TAKE 1 TABLET BY REESE TH EVERY DAY; Duration: 90 Active Problems Problem Type SNOMED Code ICD Code Onset Dates Problem Status W/U Status Risk Notes Problem Secondary hyperparathyroidism (05825061) Secondary hyperparathyroid ism, not elsewhere classified (E21.1) Active confirmed Problem Vitamin D deficiency (21485420) Vitamin D deficiency, unspecified (E55.9) Active confirmed Problem Hypo-osmolality and or hyponatremia (545244777) Hypo-osmolality and hyponatremia (E87.1) Active confirmed Problem Hyperkalemia (82629301) Hyperkalemia (E87.5) Active confirmed Problem Anxiety disorder (262341592) Anxiety disorder, unspecified (F41.9) Active confirmed Problem Essential hypertension (02947508) Essential (primary) hypertension (I10) Active confirmed Problem Renal osteodystrophy (88249729) Renal osteodystrophy (N25.0) Active confirmed Problem Edema (13204142) Edema, unspecified (R60.9) Active confirmed Problem Edema (43303464) Edema, unspecified (R60.9) Active confirmed Problem Proteinuria (26931792) Other proteinuria (R80.8) Active confirmed Problem Tobacco use (731721001) Tobacco use (Z72.0) Active confirmed Problem Type II diabetes mellitus without complication (715612398) Type 2 diabetes mellitus without complications (E11.9) Active confirmed Problem Essential hypertension (07237900) Essential hypertension (I10) Active confirmed Problem Chronic kidney disease stage 3 (disorder) (035140094) Chronic kidney disease, stage 3 unspecified (N18.30) Active confirmed Problem Chronic kidney disease stage 3A (disorder) (598347526) Chronic kidney disease, stage 3a (N18.31) Active confirmed Encounters Encounter Location Date Provider Diagnosis [facility] [address] [place] [address] 02/07/2024 Shubham Del Valle Chronic kidney disea se, stage 2 (mild) N18.2 ; Hyperkalemia E87.5 ; Essential (primary) hypertension I10 ; Edema, unspecified R60.9 ; Renal osteodystrophy N25.0 ; Secondary hyperparathyroidism, not elsewhere classified E21.1 and Vitamin D deficiency, unspecified E55.9 [facility] [address] [place] [address] 05/08/2024 Shubham Del Valle Stage 3 chronic kidn ey disease N18.30 ; Type 2 diabetes mellitus without complications E11.9 ; Hypo-osmolality and hyponatremia E87.1 and Vitamin D deficiency, unspecified E55.9 [facility] [address] [place] [address] 09/25/2024 Shubham Del Valle Chronic kidney disea se, stage 3 unspecified N18.30 ; Essential (primary) hypertension I10 ; Edema, unspecified R60.9 ; Renal osteodystrophy N25.0 ; Secondary hyperparathyroidism, not elsewhere classified E21.1 ; Vitamin D deficiency, unspecified E55.9 ; Type 2 diabetes mellitus without complications E11.9 ; Tobacco use Z72.0 ; Hypo-osmolality and hyponatremia E87.[address] [facility] [address] [place] [address] 09/25/2024 Shubham Del Valle Assessments Encounter Date [...] - I10) 02/07/2024 Hyperkalemia (ICD-10 - E87.5) 05/08/2024 Hypo-osmolality and hyponatremia (ICD-10 - E87.1) 05/08/2024 Vitamin D deficiency, unspecified (ICD-10 - E55.9) 02/07/2024 Essential (primary) hypertension (ICD-10 - I10) 09/25/2024 [...] Del Valle , 01/01/2025 02:45:00 PM, [address] Shivani Vásquez, [facility] 15, [place], [address],
--- OUTSIDE RECORDS SUMMARY | 2024-12-30 11:07 | XMS_ITS | Clinical Summary ---
Author Organization [facility] Address [address] [place] [address] Care Team Providers Care Yardage Control Operator Name Role Phone TenzinJanesie RN CLINICAL RESEARCH-C Primary Care Provider Unabrandy ilable Medications atorvastatin [...] Comments Blood Pressure 126/62 06/07/2022 2:57 PM CLOTH SHRINKING TESTER Pulse 68 06/07/2022 2:57 PM [employer]OTH SHRINK[employer] TESTER Temperature 36.3 C (97.4 F) 06/07/2022 2:57 PM [employer]OTH SHRINKING TESTER Respiratory Rate 18 06/07/2022 2:57 PM [employer]OTH SHRINKING TESTER Oxygen Saturation 99% 06/07/2022 2:57 PM CLOTH SHRINKING TESTER Inhaled Oxygen Concentration - - Weight 70.8 kg (156 lb) 02/25/2020 12:00 PM CDT Height 167.6 cm (5' 6) 06/07/2022 2:57 PM CLOTH SHRINKING TESTER Body Mass Index 25.18 02/25/2020 12:00 PM [...] history exists Insurance Medicaid [place] Care Teams Yardage Control Operator Relationship Specialty Start Date End Date Vanna Dave FNP-C PCP - General Nurse Practitioner 02/07/22
--- OUTSIDE RECORDS SUMMARY | 2024-12-30 11:07 | XMS_ITS | Encounter Summary ---
Author Organization [employer] , [facility] Address [address] [place] [phone] Phone Care Team Providers Care Director Of Infection Prevention Name Role Phone Vanna Dave Primary Care Provider Unava ilable Reason for Visit * Reason Comments Med Refill Encounter Details Date Type Department Care Team (Late st Contact Info) Description 07/31/2021 Refill [place] [facility], [address] [phone] [place]ão [place] [address] [place] [phone] Social History Tobacco Use Types Packs/Day [...] on filedocumented in this encounter Care Teams Director Of Infection Prevention Relationship Specialty Start Date End Date Vanna Dave FNP-C PCP - General Nurse Practitioner 02/07/22 documented as of this encounter
--- OUTSIDE RECORDS SUMMARY | 2024-12-30 11:07 | XMS_ITS | Clinical Summary ---
Author Organization [facility] Address [address] [facility] [place] [address] Care Team Providers Care Learning Designer Name Role Phone Clara Barber MD Primary [...] 11/14/2024 4:30 PM CDT Telephone Check Up [facility] Oncology and Hematology - [place] [address] [facility] [address] [place] [phone] Tommie Williamson MD 11/12/2024 External Device Data [facility] ABSTRACTION Provider, Abstract 11/12/2024 External Device Data [facility] Provider, Abstract 11/11/2024 Orders Only [facility] Oncology and Hematology - [place] [address] [place] [address] Tommie Williamson MD 11/04/2024 2:30 PM CDT Office Visit [facility] Oncology and Hematology - [place] [address] [place] [address] Tommie Williamson MD Iron deficiency anemia, unspecified iron deficiency anemia type (Primary Dx); Malignant neoplasm of urinary bladder, unspecified site (CMS/HCC) 10/31/2024 Orders Only [facility] Oncology and Hematology - [place] [address] [place] [address] Tommie Williamson MD 10/23/2024 Orders Only [facility] Oncology and Hematology - [place] [address] [place] [address] Tommie Williamson MD 10/15/2024 External Device Data [...] Description 01/10/2025 12:30 PM CDT Office Visit [facility] Oncology and Hematology [facility] [address] [facility] [address] [place] [address] Tommie Williamson MD [address] [facility] [address] [place] [address] Health Maintenance Due Date Last [...] 05/08/2021, 08/19/2020, Additional history exists [place] Preventative Visit/Annual Wellness Visit 05/22/2024 10/12/2023 DIABETES HBA1C Q 6 MONTHS 08/18/2024 02/19/2024 [...] Res ult from Last 3 Months Insurance [facility] [id number] MEDICAID [place] Care Teams Learning Designer Relationship Specialty Start Date End Date Clara Barber MD PCP - General Internal Medicine 11/01/23
--- OUTSIDE RECORDS SUMMARY | 2024-12-30 11:07 | XMS_ITS | Encounter Summary ---
Author Organization [employer] , [facility] Address [address] [place] [phone] Phone Care Team Providers Care Global Sales Manager Name Role Phone Vanna Dave Primary Care Provider Unava ilable Reason for Visit * Reason Comments Med Refill Encounter Details Date Type Department Care Team (Late st Contact Info) Description 06/28/2021 Refill [place] [facility] [place] [facility], [address] [phone] [place]ão [place] [address] [place] [phone] Social History Tobacco Use Types Packs/Day [...] on filedocumented in this encounter Care Teams Global Sales Manager Relationship Specialty Start Date End Date Vanna Dave FNP-C PCP - General Nurse Practitioner 02/07/22 documented as of this encounter
[2024-12-30 11:25] LABS: Hematocrit 40.3 % (37.0-47.0); Hemoglobin 12.6 g/dL (12.0-15.0); Mean Corpuscular HGB Conc 31.3 g/dl (32-36); Mean Corpuscular Hemoglobin 29.6 pg (26-34); Mean Corpuscular Volume 94.8 fl (80-100); Platelet Count Result 400 k/mm3 (150-375); Red Blood Count 4.25 M/mm3 (4.2-5.4); White Blood Count 10.1 K/mm3 (4.5-10.0)
[2024-12-30 12:29] LABS: Iron 68 ug/dL (37-170)
[2024-12-30 12:39] LABS: Percent Iron Saturation 21 % (20-50)
[2024-12-30 13:10] LABS: Ferritin 33.00 ng/mL (11.1-264)
== END 2024-12-30 11:02 | disposition home or self-care (01) ==
LOC: ANHLAB 11:02
PROVIDERS: PCP Internal Medicine; Visit Provider Internal Medicine Hematology & Oncology
DX: D50.9 Iron deficiency anemia, unspecified (principal)
CPT/HCPCS: 36415; 82728; 83540; 83550; 85027

== ENCOUNTER 2025-01-17 12:52 | Outpatient (CLI) | payer MEDICARE, MEDICAID, SELFPAY ==
--- OUTSIDE RECORDS SUMMARY | 2024-05-08 10:00 | XMS_ITS ---
Author Organization [facility] Address 1400 [facility] 61 [facility] [address] [place] [address] Care Team Providers Care Silk Screener Name Role Phone Sushil Del Vallejit Unavailable [phone] Problems Problem Type SNOMED Code ICD Code Onset Dates Problem Status W/U Status Risk Notes Problem Type II diabetes mellitus without complication (510521775) Type 2 diabetes mellitus without complications (E11.9) Active confirmed Encounters Encounter Location Date Provider Diagnosis [facility] [place] [facility] [address] [place] [address] 05/08/2024 Shubham Del Valle Stage 3 chronic [...] Del Valle , 03/14/2025 01:45:00 PM, 2043 [facility], [facility] 15, [place], [address], Progress Notes * MARCY BARKEROB:[birth year] (69 yo F)Acc No.[id number]:05/08/2024 Progress Notes Patient: BINA DESHPANDE Provider: Angela PATRICIA MD, F.A.C.P, F.A.S.N. :1955 A ge:68 Y S ex:Female Date:05/08/2024 Address:[address] [place] [address] Subjective: * Chief Complaints: * * Medical History: Objective: * Vitals: Assessment: * Assessment: 1. S tage 3 chronic kidney disease - N18.30 (Primary) 2 . T ype 2 diabetes mellitus without complications - E11.9 3 . H ypo-osmolality and hyponatremia - E87.1 4 . V itamin D deficiency, unspecified - E55.9 Plan: * Treatment: * Billing Information: * Visit Code: 60001 Office Visit, Est Pt., Level 4. * Procedure Codes: * Electronic signature of Mary Del Valle MD on 01/17/2025 at 01:00 PM CDT Sign off status: Pending * Provider: Angela PATRICIA MD, F.A.C.P, F.A.S.N. Date: 07/09/2023 Generated for Printing/Faxing/eTransmitting on: 01/17/2025 01:00 PM CDT
--- OUTSIDE RECORDS SUMMARY | 2024-07-17 09:30 | XMS_ITS ---
Author Organization [facility] Address [address] [place] [address] Care Team Providers Care Reliability Manager Name Role Phone Eligio Shubham Unavailable [phone] Encounters Encounter Location Date Provider Diagnosis [place] [facility] 2043 [facility] [address] [place] [address] 07/17/2024 Shubham Del Valle Plan Of Treatment Next Appt Details Provider Name:Shubham Eligio , 03/14/2025 01:45:00 PM, 2043 [facility], [facility] 15, [place], [address], Progress Notes * MARCY BARKEROB:[birth year] (69 yo F)Acc No.[id number]:07/17/2024 Progress Notes Patient: BINA DESHPANDE Provider: Angela PATRICIA MD, Vince.Avery.C.P, F.A.S.N. :1955 A ge:68 Y S ex:Female Date:07/17/2024 Address:[address] [place] [address] Subjective: * Chief Complaints: * * Medical History: Objective: * Vitals: Assessment: Plan: * Treatment: * Billing Information: * Visit Code: * Procedure Codes: * Electronic signature of Mary Del Valle MD on 01/17/2025 at 01:00 PM CDT Sign off status: Pending * Provider: Angela PATRICIA MD, Vince.Avery.C.P, F.A.S.N. Date: 07/17/2024 Generated for Printing/Faxing/eTransmitting on: 01/17/2025 01:00 PM CDT
--- OUTSIDE RECORDS SUMMARY | 2024-07-19 09:15 | XMS_ITS ---
Author Organization [facility] Address [address] [facility] [address] [facility] [address] [place] [address] Care Team Providers Care Odd Ticket Clerk Name Role Phone Eligio Shubham Unavailable [phone] Encounters Encounter Location Date Provider Diagnosis [place] [facility] [address] [facility] [address] [place] [address] 07/19/2024 Shubham Del Valle Plan Of Treatment Next Appt Details Provider Name:Shubham Eligio , 03/14/2025 01:45:00 PM, [address] [facility], [facility] [address], [place], [address], Progress Notes * MARCY BARKEROB:[birth year] 56 (69 yo F)Acc No.[id number]:07/19/2024 Progress Notes Patient: BINA DESHPANDE Provider: Angela PATRICIA MD, Vince.Avery.C.P, F.A.S.N. :1955 A ge:68 Y S ex:Female Date:07/19/2024 Address:[address] [place] [address] Subjective: * Chief Complaints: * * Medical History: Objective: * Vitals: Assessment: Plan: * Treatment: * Billing Information: * Visit Code: * Procedure Codes: * Electronic signature of Mary Del Valle MD on 01/17/2025 at 12:59 PM CDT Sign off status: Pending * Provider: Angela PATRICIA MD, Vince.Avery.C.P, F.A.S.N. Date: 07/19/2024 Generated for Printing/Faxing/eTransmitting on: 0 01/17/2025 12:59 PM CDT
--- OUTSIDE RECORDS SUMMARY | 2024-09-25 10:45 | XMS_ITS ---
Author Organization [facility] Address [address] [address] [place] [address] Care Team Providers Care Support Team Assoc Name Role Phone Eligio Shubham Unavailable [phone] Medications Medication SIG (Take, Route, Fr equency, [...] W/U Status Risk Notes Problem Tobacco use (551540371) Tobacco use (Z72.0) Active confirmed Problem Hypo-osmolality and or hyponatremia (612380559) Hypo-osmolality and hyponatremia (E87.1) Active confirmed Problem Hyperkalemia (51075258) Hyperkalemia (E87.5) Active confirmed Encounters Encounter Location Date Provider Diagnosis [place] [facility] [address] [address] 09/25/2024 Shubham Del Valle Chronic kidney disea [...] Name:Shubham Eligio , 03/14/2025 01:45:00 PM, 2043 [facility] [address], [place], [facility], Progress Notes * MARCY BARKEROB:[birth year] (69 yo F)Acc No.[id number]:09/25/2024 Progress Notes Patient: BINA DESHPANDE Provider: Angela PATRICIA MD, F.A.C.P, F.A.S.N. :1955 A ge:69 Y S ex:Female Date:09/25/2024 Address:[address] [place] [address] Subjective: * Chief Complaints: * * Medical [...] Treatment: * Billing Information: * Visit Code: 93084 Office Visit, Est Pt., Level 4. * Procedure Codes: * Electronic signature of Mary Del Valle MD on 01/17/2025 at 12:59 PM CDT Sign off status: Pending * Provider: Angela PARTICIA MD, F.A.C.P, F.A.S.N. Date: 0 09/25/2024 Generated for Printing/Faxing/eTransmitting on: 0 01/17/2025 12:59 PM CDT
--- OUTSIDE RECORDS SUMMARY | 2025-01-01 09:45 | XMS_ITS ---
Author Organization [facility] Address [address] [place] [address] Care Team Providers Care Game Artist Name Role Phone Shubham Del Valle Unavailable [phone] Encounters Encounter Location Date Provider Diagnosis [place] [facility] [address] [facility] [address] [place] [address] 01/01/2025 Shubham Del Valle Chronic kidney disea [...] Del Valle , 03/14/2025 01:45:00 PM, [address] [facility], [place], [place], [facility], Progress Notes * MARCY BARKEROB:[birth year] (69 yo F)Acc No.[id number]:01/01/2025 Progress Notes Patient: BINA DESHPANDE Provider: Angela PATRICIA MD, F.A.C.P, F.A.S.N. :1955 A ge:69 Y S ex:Female Date:01/01/2025 Address:[address] [place] [address] Subjective: * Chief Complaints: Objective: Assessment: * [...] Plan: * Billing Information: * Visit Code: 37822 Office Visit, Est Pt., Level 4. * Procedure Codes: * Electronic signature of Mary Del Valle MD on 01/17/2025 at 12:58 PM CDT Sign off status: Pending * Provider: Angela PATRICIA MD, F.A.C.P, F.A.S.N. Date: 0 01/01/2025 Generated for Printing/Faxing/eTransmitting on: 0 01/17/2025 12:58 PM CDT
--- NOTE | ~2025-01-17 | DEXA_ITS ---
Bone Density Report Name: BINA BARKER Age: 69 Sex: Female Ethnicity: White Date of : 1955 Indication: postmenopausal; screening for osteoporosis; height loss; cancer; hysterectomy; Referring Provider: MICHELLE, TERENCE Study: Bone densitometry was performed. Exam Date: January 17, 2025 Accession number: [id number] Bone Density: Region BMD T-score Z-score Classification AP Spine(L1, L3, L4) 0.787 -2.4 -0.3 Osteopenia Femoral Neck (Left) 0.548 -2.7 -0.9 Osteoporosis Total Hip (Left) 0.661 -2.3 -0.8 Osteopenia Femoral Neck (Right) 0.571 -2.5 -0.7 Osteoporosis Total Hip (Right) 0.674 -2.2 -0.7 Osteopenia Total Hip Mean 0.668 -2.3 -0.8 Osteopenia World Health Organization criteria for BMD impression classify patients as: Normal (T-score at or above -1.0), Osteopenia (T-score between -1.0 and -2.5), or Osteoporosis (T-score at or below -2.5). 10-year Fracture Risk: FRAX not reported because: Some T-score for Spine Total or Hip Total or Femoral Neck at or below -2.5 Clinical Information Provided by Patient: Smokes Has used the following medications: Vitamin D, Calcium Has the following medical conditions: Cancer, Hysterectomy Patient maximum height was 66 No regular weight bearing exercise Drinks caffeinated beverages Onset of menses at age 13 Number of children 3 Impression: The patient has osteoporosis, based on the Left Femoral Neck T-score. The patient has risk factors, including: smoking. Discussion: INCREASED RISK OF FRACTURE. BONE DENSITY IS UNDESIRABLY LOW AT ONE OR MORE SKELETAL SITES, CONSISTENT WITH POSTMENOPAUSAL OSTEOPOROSIS. This patient's lowest T-score meets the World Health Organization's (WHO) criteria for osteoporosis at one or more sites (T-score -2.5 or below). In untreated patients, the risk of osteoporotic fracture increases approximately two-fold for each 1.0 SD decrease in T-score. Low bone density is not the only risk factor for fracture; also consider factors such as patient's age, frailty or poor health, risk of falling, risk of injury, previous osteoporotic fracture, family history of osteoporosis, cigarette smoking, low body weight, etc. Not everyone with low bone mineral density has osteoporosis; osteomalacia and other metabolic bone disorders should also be considered. Patients who have osteoporosis should be evaluated for specific diseases and conditions (secondary causes) that may cause or contribute to bone loss. The [place] Association of Clinical Endocrinologists (AACE) and National Osteoporosis Foundation (NOF) recommend pharmacologic intervention for all postmenopausal women whose T-score is in this range. The patient should follow a healthful lifestyle (good nutrition with adequate calcium and vitamin D, and appropriate weight-bearing exercise). Follow-Up: Consider a repeat BMD and Vertebral Fracture Assessment (VFA) exam in 2 years or sooner if medically necessary, to reassess this patient's status. Reported by: CLYDE on 01/17/2025 1:41:00 PM. Reviewed, dictated and finalized at location A.
--- NOTE | ~2025-01-17 | MM_ITS ---
EXAMINATION: screening [facility] BI w shanique INDICATION: Asymptomatic, referred for screening mammogram COMPARISON: None available TECHNIQUE: Digital Breast Tomosynthesis CC, MLO views of Both breasts were obtained with computer-aided detection to assist in interpretation of the study. FINDINGS: There are scattered areas of fibroglandular density. There is an asymmetry seen on the MLO view in the Inferior left breast at middle third. Elsewhere, there are no mammographic features of malignancy. IMPRESSION: 1. Left breast Asymmetry. 2. No evidence of malignancy in the Right breast. RECOMMENDATION: Left breast Diagnostic mammogram with true lateral, appropriate spot compression views and an ultrasound if needed. BI-RADS Category 0: Incomplete: Needs additional imaging evaluation. Reviewed, dictated and finalized at location B. IMPRESSION: 1. Left breast Asymmetry. 2. No evidence of malignancy in the Right breast. RECOMMENDATION: Left breast Diagnostic mammogram with true lateral, appropriate spot compressio n views and an ultrasound if needed. BI-RADS Category 0: Incomplete: Needs additional imaging evaluation.
--- OUTSIDE RECORDS SUMMARY | 2025-01-17 12:59 | XMS_ITS | Clinical Summary ---
Author Organization [facility] Panfilo riggins Shai Address [address] [place] [address] Care Team Providers Care Electrical Assembler Name Role Phone Clara Barber MD Primary [...] Encounters Date Type Department Care Team Description 12/31/2024 Orders Only [facility] - Benjamin [address] [place] [phone] Tommie Williamson MD 12/24/2024 External Device Data STL ABSTRACTION Provider, Abstract 12/04/2024 External Device Data STL ABSTRACTION Provider, Abstract 12/03/2024 External Device Data STL ABSTRACTION Provider, Abstract 11/14/2024 4:30 PM CDT Telephone Check Up [facility] - Benjamin [address] [place] [address] Tommie Williamson MD 11/12/2024 External Device Data STL ABSTRACTION Provider, Abstract 11/12/2024 External Device Data STL ABSTRACTION Provider, Abstract 11/11/2024 Orders Only [facility] - Benjamin [address] [place] [address] Tommie Williamson MD 11/04/2024 2:30 PM CDT Office Visit [facility] - Benjamin [address] [place] [address] Tommie Williamson MD Iron deficiency anemia, unspecified iron deficiency anemia type (Primary Dx); Malignant neoplasm of urinary bladder, unspecified site (CMS/HCC) 10/31/2024 Orders Only [facility]ematology - Benjamin [address] [place] [address] Tommie Williamson MD 10/23/2024 Orders Only [facility]ematology - Benjamin [address] [place] [address] Tommie Williamson MD from Last 3 Months [...] Date Smoking Tobacco: Every Day Cigarettes 1 51.2 Started: 11/14/1973 Smokeless Tobacco: Never Tobacco Cessation:Ready [...] 11/15/2023 10:49 AM CDT Plan of Treatment Health Maintenance [...] MONTHS 08/18/2024 02/19/2024 INFLUENZA VACCINE (#1) 2024 , 04/20/2023, 04/27/2022, Additional history exists PNEUMOCOCCAL VACCINE 50+ YEARS Completed 05/06/2022 Procedures Procedure Name Priority Date/Time Associated Diagnosis Comments CBC WITH AUTODIFFERENTIAL Routine 2024 12:[address] ABDOMEN PELVIS W CONTRAST Routine 11/08/2024 8:53 AM CDT JAK2 EXON 12 MUTATION ANALYSIS Routine 10/23/2024 4:15 PM CDT CBC WITH DIFFERENTIAL Routine 10/23/2024 3:23 PM CDT from Last 3 Months Results * CBC WITH AUTODIFFERENTIAL (12/30/2024 12:27 PM CDT) Blood us Tommie Williamson MD HEMATOLOGY ORDERABLES Final Res ult * CT ABDOMEN PELVIS W CONTRAST (11/08/2024 [...] 3 Months Insurance MEDICAID [place] Care Teams Electrical Assembler Relationship Specialty Start Date End Date Clara Barber MD PCP - General Internal Medicine 11/01/23
--- OUTSIDE RECORDS SUMMARY | 2025-01-17 12:59 | XMS_ITS | Encounter Summary ---
Author Organization [email or web address] , [facility] Address [address] [facility] [place] [address] Phone Care Team Providers Care Employment Director Name Role Phone Vanna Dave Primary Care Provider Unava ilable Reason for Visit * Reason Comments Med Refill Encounter Details Date Type Department Care Team (Late st Contact Info) Description 08/30/2023 Refill [place] [employer] [facility], [facility] [address] [facility] [address] [place] [address] João De Leon, [address] [facility] 1 [place] [address] Social History Tobacco Use Types [...] on filedocumented in this encounter Care Teams Employment Director Relationship Specialty Start Date End Date Vanna Dave FNP-C PCP - General Nurse Practitioner 02/07/22 documented as of this encounter
--- OUTSIDE RECORDS SUMMARY | 2025-01-17 13:00 | XMS_ITS ---
Author Organization [facility] Address [address] [facility] [place] [address] Care Team Providers Care Ticket Taker Name Role Phone Tenzin Vanna WIGGINS-STAFF MINE WARFARE OFFICER Primary Care Provider [phone] Active Problems Problem Noted Date Diagnosed Date [...]
--- OUTSIDE RECORDS SUMMARY | 2025-01-17 13:00 | XMS_ITS | Encounter Summary ---
Author Organization [employer] , [facility] Address [address] [place] [phone] Phone Care Team Providers Care Union Organiser Name Role Phone Vanna Dave Primary Care Provider Unava ilable Reason for Visit * Reason Comments Med Refill Encounter Details Date Type Department Care Team (Late st Contact Info) Description 07/31/2021 Refill [place] [employer] [facility], [address] [address] [place]ão [place] [address] [place] [phone] Social History Tobacco Use Types Packs/Day [...] on filedocumented in this encounter Care Teams Union Organiser Relationship Specialty Start Date End Date Vanna Dave FNP-C PCP - General Nurse Practitioner 02/07/22 documented as of this encounter
--- OUTSIDE RECORDS SUMMARY | 2025-01-17 13:00 | XMS_ITS | Clinical Summary ---
Author Organization [facility] Address [address] [place] [address] Care Team Providers Care Platform Inspector Name Role Phone Vanna Dave ROSALIE-GENERAL LABOR Primary Care Provider [phone] Source Comments [facility],non-owned Affiliates and Associated Physician Practices is amultiple site organization consisting of ambulatory clinics and hospital sitesin [place], [place], [place] and [place]. This disclosure is being madepursuant to the Care Everywhere program and may not contain all information available regarding this patient. Last updated 18.Issue Allergies No known active allergies Medications * [...] vitamin D, ergocalciferol , (Drisdol) 1.25 MG (35983 UT) capsule Take 1 (one) capsule by [...] days 56 tablet 3 Active HYDROcodone-ac etaminophen ([place]) 5-325 MG tabletIndicati ons:Malignant neoplasm of posterior [...] Examples: Ensure Plant/Orgain 3 Active HYDROcodone-ac etaminophen ([place]) 5-325 MG tabletIndicati ons:Abscess,Ma lignant neoplasm of [...] and heating? Not hard at all 02/05/2023 [facility] Occupat ional Health - [...] place to sleep or slept in a nursing home (including now)? No 02/05/2023 Comments No Sex and Gender Information Value Date Recorded Sex Assigned at Not on file Legal Sex Female 4:06 PM INVENTORY MANAGER Gender Identity Not on file Sexual Orientation [...] this topic Medical Devices Implanted Type Area Calciner Operator Helper Device Identifier Shelf Expiration Date Model / Serial / Lot Stent Uret 7fr 26cm Sft Tria Implanted:Qty: 1 on 01/24/2023 by Silvano Rodríguez MD at [facility] [employer] [facility] 09/23/2024 [id number] / / [id number] Stent Uret 7fr 26cm Sft Tria Implanted:Qty: 1 on 01/24/2023 by Silvano Rodríguez MD at [facility] Left: [facility] [employer] [facility] 04/03/2025 [id number] 0 / [id number] Insurance MEDICAID - OUT OF STATE UHC [...] 9:35 AM 11/06/2019 4:21 PM Care Teams Platform Inspector Relationship Specialty Start Date End Date Vanna Dave APRN-KIM [address] [phone] PCP - General 11/20/20
--- OUTSIDE RECORDS SUMMARY | 2025-01-17 13:00 | XMS_ITS | Patient Health Record ---
Author Organization [facility] Address [address] [place] [address] Care Team Providers Care Senior Net Software Developer Name Role Phone Shubham Del Valle Unavailable [phone] Reason For Referral No Information Medications Medication SIG (Take, Route, Frequency, Duration) Notes Start Date End Date Status Ergocalciferol 1.25 MG (26408 UT) 1 capsule Orally Once a week; [...] W/U Status Risk Notes Problem Secondary hyperparathyroidism (02771866) Secondary hyperparathyroid ism, not elsewhere classified (E21.1) Active confirmed Problem Vitamin D deficiency (61433943) Vitamin D deficiency, unspecified (E55.9) Active confirmed Problem Hypo-osmolality and or hyponatremia (881348467) Hypo-osmolality and hyponatremia (E87.1) Active confirmed Problem Hyperkalemia (22141045) Hyperkalemia (E87.5) Active confirmed Problem Anxiety disorder (364339140) Anxiety disorder, unspecified (F41.9) Active confirmed Problem Essential hypertension (81976290) Essential (primary) hypertension (I10) Active confirmed Problem Renal osteodystrophy (83742042) Renal osteodystrophy (N25.0) Active confirmed Problem Edema (41275902) Edema, unspecified (R60.9) Active confirmed Problem Edema (09505590) Edema, unspecified (R60.9) Active confirmed Problem Proteinuria (75767451) Other proteinuria (R80.8) Active confirmed Problem Tobacco use (749720860) Tobacco use (Z72.0) Active confirmed Problem Type II diabetes mellitus without complication (062478856) Type 2 diabetes mellitus without complications (E11.9) Active confirmed Problem Essential hypertension (04859405) Essential hypertension (I10) Active confirmed Problem Chronic kidney disease stage 3 (disorder) (533846478) Chronic kidney disease, stage 3 unspecified (N18.30) Active confirmed Encounters Encounter Location Date Provider Diagnosis [facility] [address] [address] 02/07/2024 Shubham Del Valle Chronic kidney disea se, stage 2 (mild) N18.2 ; Hyperkalemia E87.5 ; Essential (primary) hypertension I10 ; Edema, unspecified R60.9 ; Renal osteodystrophy N25.0 ; Secondary hyperparathyroidism, not elsewhere classified E21.1 and Vitamin D deficiency, unspecified E55.9 [facility] [address] [place] [address] 05/08/2024 Shubham Del Valle Stage 3 chronic kidn ey disease N18.30 ; Type 2 diabetes mellitus without complications E11.9 ; Hypo-osmolality and hyponatremia E87.1 and Vitamin D deficiency, unspecified E55.9 [facility] [address] [address] 09/25/2024 Shubham Del Valle Chronic kidney disea se, stage 3 unspecified N18.30 ; Essential (primary) hypertension I10 ; Edema, unspecified R60.9 ; Renal osteodystrophy N25.0 ; Secondary hyperparathyroidism, not elsewhere classified E21.1 ; Vitamin D deficiency, unspecified E55.9 ; Type 2 diabetes mellitus without complications E11.9 ; Tobacco use Z72.0 ; Hypo-osmolality and hyponatremia E87.1 and Hyperkalemia E87.5 [facility] [address] [facility] [address] [place] [address] 01/01/2025 Shubham Del Valle Chronic kidney disea [...] Hypo-osmolality and hyponatremia E87.1 and Hyperkalemia E87.5 [facility] [address] [facility] [address] [place] [address] 09/25/2024 Shubham Del Valle Assessments Encounter Date Diagnosis (ICD Code) Assessment Notes Treatment Notes Treatment Clinical Notes Section Notes 02/07/2024 Chronic kidney disease, stage 2 (mild) (ICD-10 - N18.2) 05/08/2024 Type 2 diabetes mellitus without complications (ICD-10 - E11.9) 05/08/2024 Stage 3 chronic kidney disease (ICD-10 - N18.30) 09/25/2024 Chronic kidney disease, stage 3 unspecified (ICD-10 - N18.30) 01/01/2025 Chronic kidney disease, stage 3 unspecified (ICD-10 - N18.30) 01/01/2025 Essential (primary) hypertension (ICD-10 - I10) 09/25/2024 Essential (primary) hypertension (ICD-10 - I10) 02/07/2024 Hyperkalemia (ICD-10 - E87.5) 05/08/2024 Hypo-osmolality and hyponatremia (ICD-10 - E87.1) 05/08/2024 Vitamin D deficiency, unspecified (ICD-10 - E55.9) 02/07/2024 Essential (primary) hypertension (ICD-10 - I10) 09/25/2024 Edema, unspecified (ICD-10 - R60.9) 01/01/2025 Edema, unspecified (ICD-10 - R60.9) 01/01/2025 Essential hypertension (ICD-10 - I10) 09/25/2024 Renal osteodystrophy (ICD-10 - N25.0) 02/07/2024 Edema, unspecified (ICD-10 - R60.9) 02/07/2024 Renal osteodystrophy (ICD-10 - N25.0) 09/25/2024 Secondary hyperparathyroidism , not elsewhere classified (ICD-10 - E21.1) 01/01/2025 Renal osteodystrophy (ICD-10 - N25.0) 01/01/2025 Anxiety disorder, unspecified (ICD-10 - F41.9) 09/25/2024 Vitamin D deficiency, unspecified (ICD-10 - E55.9) 02/07/2024 Secondary hyperparathyroidism , not elsewhere classified (ICD-10 - E21.1) 02/07/2024 Vitamin D deficiency, unspecified (ICD-10 - E55.9) 09/25/2024 Type 2 diabetes mellitus without complications (ICD-10 - E11.9) 01/01/2025 Other proteinuria (ICD-10 - R80.8) 01/01/2025 Secondary hyperparathyroidism , not elsewhere classified (ICD-10 - E21.1) 09/25/2024 Tobacco use (ICD-10 - Z72.0) 09/25/2024 Hypo-osmolality and hyponatremia (ICD-10 - E87.1) 01/01/2025 Vitamin D deficiency, unspecified (ICD-10 - E55.9) 01/01/2025 Type 2 diabetes mellitus without complications (ICD-10 - E11.9) 09/25/2024 Hyperkalemia (ICD-10 - E87.5) 01/01/2025 Tobacco use (ICD-10 - Z72.0) 01/01/2025 Hypo-osmolality and hyponatremia (ICD-10 - E87.1) 01/01/2025 Hyperkalemia (ICD-10 - E87.5) Plan Of Treatment Next Appt Details Provider Name:Shubham Del Valle , 03/14/2025 01:45:00 PM, [address], [address],
--- OUTSIDE RECORDS SUMMARY | 2025-01-17 13:00 | XMS_ITS | Encounter Summary ---
Author Organization [facility] , [facility] Address [address] [place] [phone] Phone Care Team Providers Care Pacs Administrator Name Role Phone Vanna Dave Primary Care Provider Unava ilable Reason for Visit * Reason Comments Med Refill Encounter Details Date Type Department Care Team (Late st Contact Info) Description 09/02/2021 Refill [place] [facility], [address] [address] [place]ão [place] [address] [place] [phone] Social History Tobacco Use Types Packs/Day [...] on filedocumented in this encounter Care Teams Pacs Administrator Relationship Specialty Start Date End Date Vanna Dave FNP-C PCP - General Nurse Practitioner 02/07/22 documented as of this encounter
--- OUTSIDE RECORDS SUMMARY | 2025-01-17 13:00 | XMS_ITS | Encounter Summary ---
Author Organization [facility] , [facility] Address [address] [place] [phone] Phone Care Team Providers Care Boiler Testing Technician Name Role Phone Vanna Dave Primary Care Provider Unava ilable Reason for Visit * Reason Comments Med Refill Encounter Details Date Type Department Care Team (Late st Contact Info) Description 06/28/2021 Refill [place] [facility], [address] [address] [place]ão [place] [address] [place] [phone] Social History Tobacco Use Types Packs/Day [...] on filedocumented in this encounter Care Teams Boiler Testing Technician Relationship Specialty Start Date End Date Vanna Dave FNP-C PCP - General Nurse Practitioner 02/07/22 documented as of this encounter
--- OUTSIDE RECORDS SUMMARY | 2025-01-17 13:00 | XMS_ITS | Clinical Summary ---
Author Organization [facility] Address [address] [place] [address] Care Team Providers Care Sausage Cooker Name Role Phone TenzinVanna BUTTER FAT TESTER-C Primary Care Provider Unabrandy ilable Medications atorvastatin [...] Comments Blood Pressure 126/62 06/07/2022 2:57 PM DROP MACHINE OPERATOR Pulse 68 06/07/2022 2:57 PM DROP MACHINE OPERATOR Temperature 36.3 C (97.4 F) 06/07/2022 2:57 PM DROP MACHINE OPERATOR Respiratory Rate 18 06/07/2022 2:57 PM DROP MACHINE OPERATOR Oxygen Saturation 99% 06/07/2022 2:57 PM DROP MACHINE OPERATOR Inhaled Oxygen Concentration - - Weight 70.8 kg (156 lb) 02/25/2020 12:00 PM CDT Height 167.6 cm (5' 6) 06/07/2022 2:57 PM DROP MACHINE OPERATOR Body Mass Index 25.18 02/25/2020 12:00 [...] history exists Insurance Medicaid [place] Care Teams Sausage Cooker Relationship Specialty Start Date End Date Vanna Dave FNP-C PCP - General Nurse Practitioner 02/07/22
== END 2025-01-17 12:53 | disposition home or self-care (01) ==
LOC: ANHFOHIMG 12:55
PROVIDERS: PCP Internal Medicine; Visit Provider Internal Medicine
DX: Z12.31 Encounter for screening mammogram for malignant neoplasm of breast (principal); R92.8 Other abnormal and inconclusive findings on diagnostic imaging of breast; M81.0 Age-related osteoporosis without current pathological fracture; Z78.0 Asymptomatic menopausal state; Z13.820 Encounter for screening for osteoporosis
CPT/HCPCS: 77063; 77067; 77080

== ENCOUNTER 2025-01-27 13:39 | Outpatient (CLI) | payer MEDICARE, MEDICAID, SELFPAY ==
--- OUTSIDE RECORDS SUMMARY | 2024-05-08 10:00 | XMS_ITS ---
Author Organization [facility] Address 1400 [facility] 61 [facility] [address] [place] [address] Care Team Providers Care Migratory Worker Name Role Phone Sushil Del Vallejit Unavailable [phone] Problems Problem Type SNOMED Code ICD Code Onset Dates Problem Status W/U Status Risk Notes Problem Type II diabetes mellitus without complication (122592600) Type 2 diabetes mellitus without complications (E11.9) Active confirmed Encounters Encounter Location Date Provider Diagnosis [facility] [place] [facility] [address] [place] [address] 05/08/2024 Shubham Del Valle Stage 3 chronic [...] Appt Details Provider Name:Shubham Del Valle , 03/14/2025 01:45:00 PM, 2043 [facility], [facility] 15, [place], [address], Progress Notes * MARCY BARKEROB:[birth year] (69 yo F)Acc No.[id number]:05/08/2024 Progress Notes Patient: BINA DESHPANDE Provider: Angela PATRICIA MD, F.A.C.P, F.A.S.N. :1955 A ge:68 Y S ex:Female Date:05/08/2024 Address:[address] [place] [address] Subjective: * Chief Complaints: * * Medical History: Objective: * Vitals: Assessment: * Assessment: 1. S tage 3 chronic kidney disease - N18.30 (Primary) 2 . T ype 2 diabetes mellitus without complications - E11.9 3 . H ypo-osmolality and hyponatremia - E87.1 4 . V itamin D deficiency, unspecified - E55.9 Plan: * Treatment: * Billing Information: * Visit Code: 98437 Office Visit, Est Pt., Level 4. * Procedure Codes: * Electronic signature of Mary Del Valle MD on 01/27/2025 at 01:46 PM CDT Sign off status: Pending * Provider: Angela PATRICIA MD, F.A.C.P, F.A.S.N. Date: 07/09/2023 Generated for Printing/Faxing/eTransmitting on: 0 01/27/2025 01:46 PM CDT
--- OUTSIDE RECORDS SUMMARY | 2024-07-17 09:30 | XMS_ITS ---
Author Organization [facility] Address 1400 [facility] 61 [facility] [address] [place] [address] Care Team Providers Care Epic Specialist Name Role Phone Eligio Shubham Unavailable [phone] Encounters Encounter Location Date Provider Diagnosis [place] [facility] 2043 [facility] [address] [place] [address] 07/17/2024 Shubham Del Valle Plan Of Treatment Next Appt Details Provider Name:Shubham Eligio , 03/14/2025 01:45:00 PM, 2043 [facility], [facility] 15, [place], [address], Progress Notes * MARCY BARKEROB:[birth year] (69 yo F)Acc No.[id number]:07/17/2024 Progress Notes Patient: BINA DESHPANDE Provider: Angela PATRICIA MD, Vince.Avery.C.P, F.A.S.N. :1955 A ge:68 Y S ex:Female Date:07/17/2024 Address:[address] [place] [address] Subjective: * Chief Complaints: * * Medical History: Objective: * Vitals: Assessment: Plan: * Treatment: * Billing Information: * Visit Code: * Procedure Codes: * Electronic signature of Mary Del Valle MD on 01/27/2025 at 01:47 PM CDT Sign off status: Pending * Provider: Angela PATRICIA MD, Vince.Avery.C.P, F.A.S.N. Date: 07/17/2024 Generated for Printing/Faxing/eTransmitting on: 01/27/2025 01:47 PM CDT
--- OUTSIDE RECORDS SUMMARY | 2024-07-19 09:15 | XMS_ITS ---
Author Organization [facility] Address 1400 [facility] 61 [facility] [address] [place] [address] Care Team Providers Care Outcomes Specialist Name Role Phone Eligio Shubham Unavailable [phone] Encounters Encounter Location Date Provider Diagnosis [place] [facility] 2043 [facility] [address] [place] [address] 07/19/2024 Shubham Del Valle Plan Of Treatment Next Appt Details Provider Name:Shubham Eligio , 03/14/2025 01:45:00 PM, 2043 [facility], [facility] 15, [place], [address], Progress Notes * MARCY BARKEROB:[birth year] (69 yo F)Acc No.[id number]:07/19/2024 Progress Notes Patient: BINA DESHPANDE Provider: Angela PATRICIA MD, Vince.Avery.C.P, F.A.S.N. :1955 A ge:68 Y S ex:Female Date:07/19/2024 Address:[address] [place] [address] Subjective: * Chief Complaints: * * Medical History: Objective: * Vitals: Assessment: Plan: * Treatment: * Billing Information: * Visit Code: * Procedure Codes: * Electronic signature of Mary Del Valle MD on 01/27/2025 at 01:45 PM CDT Sign off status: Pending * Provider: Angela PATRICIA MD, Vince.Avery.C.P, F.A.S.N. Date: 07/19/2024 Generated for Printing/Faxing/eTransmitting on: 01/27/2025 01:45 PM CDT
--- OUTSIDE RECORDS SUMMARY | 2024-09-25 10:45 | XMS_ITS ---
Author Organization [facility] Office Address [address] [id number] [place] [address] Care Team Providers Care Diversional Therapist Name Role Phone Eligio Shubham Unavailable [phone] Medications Medication SIG (Take, Route, Fr equency, [...] W/U Status Risk Notes Problem Tobacco use (793298822) Tobacco use (Z72.0) Active confirmed Problem Hypo-osmolality and or hyponatremia (162634270) Hypo-osmolality and hyponatremia (E87.1) Active confirmed Problem Hyperkalemia (26137198) Hyperkalemia (E87.5) Active confirmed Encounters Encounter Location Date Provider Diagnosis [place] [facility] [address] [address] 09/25/2024 Shubham Del Valle Chronic kidney disea [...] Name:Shubham Eligio , 03/14/2025 01:45:00 PM, 2043 [facility] [address], [place], [facility], Progress Notes * MARCY BARKEROB:[birth year] (69 yo F)Acc No.[id number]:09/25/2024 Progress Notes Patient: BINA DESHPANDE Provider: Angela PATRICIA MD, F.A.C.P, F.A.S.N. :1955 A ge:69 Y S ex:Female Date:09/25/2024 Address:[address] [place] [address] Subjective: * Chief Complaints: * * Medical [...] Treatment: * Billing Information: * Visit Code: 06951 Office Visit, Est Pt., Level 4. * Procedure Codes: * Electronic signature of Mary Del Valle MD on 01/27/2025 at 01:46 PM CDT Sign off status: Pending * Provider: Angela PATRICIA MD, F.A.C.P, F.A.S.N. Date: 0 09/25/2024 Generated for Printing/Faxing/eTransmitting on: 0 01/27/2025 01:46 PM CDT
--- OUTSIDE RECORDS SUMMARY | 2025-01-01 09:45 | XMS_ITS ---
Author Organization [facility] Address [address] [place] [address] Care Team Providers Care Outside Machinist Supervisor Name Role Phone Shubham Del Valle Unavailable [phone] Encounters Encounter Location Date Provider Diagnosis [place] [facility] [address] [facility] [address] [place] [address] 01/01/2025 Shubham Del Valle Chronic kidney disea [...] Del Valle , 03/14/2025 01:45:00 PM, [address] [facility] [address], [place], [place], [facility], Progress Notes * MARCY BARKEROB:[birth year] (69 yo F)Acc No.[id number]:01/01/2025 Progress Notes Patient: BINA DESHPANDE Provider: Angela PATRICIA MD, F.A.C.P, F.A.S.N. :1955 A ge:69 Y S ex:Female Date:01/01/2025 Address:[address] [place] [address] Subjective: * Chief Complaints: Objective: Assessment: * [...] Plan: * Billing Information: * Visit Code: 09726 Office Visit, Est Pt., Level 4. * Procedure Codes: * Electronic signature of Mary Del Valle MD on 01/27/2025 at 01:45 PM CDT Sign off status: Pending * Provider: Angela PATRICIA MD, F.A.C.P, F.A.S.N. Date: 0 01/01/2025 Generated for Printing/Faxing/eTransmitting on: 0 01/27/2025 01:45 PM CDT
--- NOTE | ~2025-01-27 | CT_ITS ---
EXAMINATION:CT diagnostic chest w con DATE: 01/27/2025 14:19 INDICATION: Lung nodule. Abnormal lung field. TECHNIQUE: Computed tomography (CT) of the chest was performed with 75 mL Omnipaque 350 intravenous contrast. Automated exposure control and iterative reconstruction technique were employed. The dose-length product (DLP) was 130.42 mGy-cm. COMPARISON: Chest CT 08/17/2024, CT abdomen and pelvis 11/08/2024 FINDINGS: There is mild scarring at the lung apices. There is mild emphysema. There is mild atelectasis bilaterally. There is a stable 3 mm nodule in right middle lobe, likely benign. There is a stable 4 mm nodule in left lower lobe, likely benign. No pleural effusion. The heart size is normal. There are coronary artery calcifications. No pericardial effusion. Partially visualized are atrophy and hydronephrosis involving right kidney. Partially visualized is a 17 mm cyst in right kidney. There is mild thoracic spondylosis. IMPRESSION: 1. Stable small pulmonary nodules, likely benign. 2. Mild emphysema. 3. Partially visualized atrophy and chronic hydronephrosis involving right kidney. Reviewed, dictated and finalized at location E. IMPRESSION: 1. Stable small pulmonary nodules, likely benign. 2. Mild emphysema. 3. Partially visualized atrophy and chronic hydronephrosis involving right kidn ey.
--- OUTSIDE RECORDS SUMMARY | 2025-01-27 13:46 | XMS_ITS | Encounter Summary ---
Author Organization [employer] , [facility] Address [address] [place] [phone] Phone Care Team Providers Care Concession Supervisor Name Role Phone Vanna Dave Primary Care Provider Unava ilable Reason for Visit * Reason Comments Med Refill Encounter Details Date Type Department Care Team (Late st Contact Info) Description 07/31/2021 Refill [place] [employer] [facility], [address] [phone] [place]ão [place] [address] [place] [phone] Social History Tobacco Use Types Packs/Day [...] on filedocumented in this encounter Care Teams Concession Supervisor Relationship Specialty Start Date End Date Vanna Dave FNP-C PCP - General Nurse Practitioner 02/07/22 documented as of this encounter
--- OUTSIDE RECORDS SUMMARY | 2025-01-27 13:46 | XMS_ITS | Clinical Summary ---
Author Organization [facility] [facility] Address [address] [place] [address] Care Team Providers Care Cook Room Supervisor Name Role Phone Vanna Dave ROSALIE-MOLD SHEET CLEANER Primary Care Provider [phone] Source Comments [facility],non-owned Affiliates and Associated Physician Practices is amultiple site organization consisting of ambulatory clinics and hospital sitesin [place], [place], [place] and [place]. This disclosure is being madepursuant to the Care Everywhere program and may not contain all information available regarding this patient. Last updated 18.[employer] Allergies No known active allergies Medications * [...] vitamin D, ergocalciferol , (Drisdol) 1.25 MG (47589 UT) capsule Take 1 (one) capsule by [...] days 56 tablet 3 Active HYDROcodone-ac etaminophen ([place]) 5-325 MG tabletIndicati ons:Malignant neoplasm of posterior [...] Examples: Ensure Plant/Orgain 3 Active HYDROcodone-ac etaminophen ([place]) 5-325 MG tabletIndicati ons:Abscess,Ma lignant neoplasm of [...] and heating? Not hard at all 02/05/2023 [facility] of Occupat ional Health - Occupational Stress [...] on file Legal Sex Female 4:06 PM CYLINDER BLOCK MECHANIC Gender Identity Not on file Sexual Orientation [...] this topic Medical Devices Implanted Type Area Repairing Calibrator Device Identifier Shelf Expiration Date Model / Serial / Lot Stent Uret 7fr 26cm Sft Tria Implanted:Qty: 1 on 01/24/2023 by Silvano Rodríguez MD at [facility] [employer] [facility] 09/23/2024 [id number] / / [id number] Stent [employer]ret 7fr 26cm Sft Tria Implanted:Qty: 1 on 01/24/2023 by Silvano Rodríguez MD at [facility] Left: [facility] [employer] [facility] 04/03/2025 [id number] 0 / [id number] [place] [address] UHC MANAGED MEDICARE ADV Advance Directives * [...] 9:35 AM 11/06/2019 4:21 PM Care Teams Cook Room Supervisor Relationship Specialty Start Date End Date Vanna Dave APRN-KIM [address] [phone] PCP - General 11/20/20
--- OUTSIDE RECORDS SUMMARY | 2025-01-27 13:46 | XMS_ITS | Encounter Summary ---
Author Organization [email or web address] , [facility] Address [address] [facility] [place] [address] Phone Care Team Providers Care Brand Leader Name Role Phone Vanna Dave Primary Care Provider Unava ilable Reason for Visit * Reason Comments Med Refill Encounter Details Date Type Department Care Team (Late st Contact Info) Description 08/30/2023 Refill [place] [employer] [facility], [facility] [address] [facility] 15 [place] [address] João De Leon, [address] [facility] 1 [place] [address] Social History Tobacco Use Types [...] on filedocumented in this encounter Care Teams Brand Leader Relationship Specialty Start Date End Date Vanna Dave FNP-C PCP - General Nurse Practitioner 02/07/22 documented as of this encounter
--- OUTSIDE RECORDS SUMMARY | 2025-01-27 13:46 | XMS_ITS | Encounter Summary ---
Author Organization [facility] , [facility] Address [address] [place] [phone] Phone Care Team Providers Care Auto Apprentice Mechanic Name Role Phone Vanna Dave Primary Care Provider Unava ilable Reason for Visit * Reason Comments Med Refill Encounter Details Date Type Department Care Team (Late st Contact Info) Description 06/28/2021 Refill [place] [facility], [address] [address] [place]ão [place] [address] [place] [phone] Social History Tobacco Use Types Packs/Day [...] on filedocumented in this encounter Care Teams Auto Apprentice Mechanic Relationship Specialty Start Date End Date Vanna Dave FNP-C PCP - General Nurse Practitioner 02/07/22 documented as of this encounter
--- OUTSIDE RECORDS SUMMARY | 2025-01-27 13:46 | XMS_ITS | Patient Health Record ---
Author Organization [facility] Address [address] [place] [address] Care Team Providers Care Pigment Pusher Name Role Phone Shubham Del Valle Unavailable [phone] Reason For Referral No Information Medications Medication SIG (Take, Route, Frequency, Duration) Notes Start Date End Date Status Ergocalciferol 1.25 MG (65585 UT) 1 capsule Orally Once a week; Duration: 90 day(s) 09/20/2023 06/22/2025 Active Sodium Bicarbonate 650 MG TAKE 2 TABLETS BY MOUTH TWICE A DAY DIRECTED; Duration: 90 Active Calcitriol 0.25 MCG TAKE 1 CAPSULE BY MO UTH EVERY DAY; Duration: 90 Active Jardiance 10 MG TAKE 1 TABLET BY REESE TH EVERY DAY; Duration: 90 Active Problems Problem Type SNOMED Code ICD Code Onset Dates Problem Status W/U Status Risk Notes Problem Secondary hyperparathyroidism (84881652) Secondary hyperparathyroid ism, not elsewhere classified (E21.1) Active confirmed Problem Vitamin D deficiency (57238883) Vitamin D deficiency, unspecified (E55.9) Active confirmed Problem Hypo-osmolality and or hyponatremia (120796825) Hypo-osmolality and hyponatremia (E87.1) Active confirmed Problem Hyperkalemia (75070563) Hyperkalemia (E87.5) Active confirmed Problem Anxiety disorder (098027175) Anxiety disorder, unspecified (F41.9) Active confirmed Problem Essential hypertension (34560691) Essential (primary) hypertension (I10) Active confirmed Problem Renal osteodystrophy (68142809) Renal osteodystrophy (N25.0) Active confirmed Problem Edema (04140793) Edema, unspecified (R60.9) Active confirmed Problem Edema (83271796) Edema, unspecified (R60.9) Active confirmed Problem Proteinuria (18136023) Other proteinuria (R80.8) Active confirmed Problem Tobacco use (638912366) Tobacco use (Z72.0) Active confirmed Problem Type II diabetes mellitus without complication (501746296) Type 2 diabetes mellitus without complications (E11.9) Active confirmed Problem Essential hypertension (17535582) Essential hypertension (I10) Active confirmed Problem Chronic kidney disease stage 3 (disorder) (029476373) Chronic kidney disease, stage 3 unspecified (N18.30) Active confirmed Encounters Encounter Location Date Provider Diagnosis [facility] [address] [address] 02/07/2024 Shubham Del Valle Chronic kidney disea se, stage 2 (mild) N18.2 ; Hyperkalemia E87.5 ; Essential (primary) hypertension I10 ; Edema, unspecified R60.9 ; Renal osteodystrophy N25.0 ; Secondary hyperparathyroidism, not elsewhere classified E21.1 and Vitamin D deficiency, unspecified E55.9 [facility] [address] [place] [address] 05/08/2024 Shubham Del Valle Stage 3 chronic kidn ey disease N18.30 ; Type 2 diabetes mellitus without complications E11.9 ; Hypo-osmolality and hyponatremia E87.1 and Vitamin D deficiency, unspecified E55.9 [facility] [address] [address] 09/25/2024 Shubham Del Valle Chronic kidney disea se, stage 3 unspecified N18.30 ; Essential (primary) hypertension I10 ; Edema, unspecified R60.9 ; Renal osteodystrophy N25.0 ; Secondary hyperparathyroidism, not elsewhere classified E21.1 ; Vitamin D deficiency, unspecified E55.9 ; Type 2 diabetes mellitus without complications E11.9 ; Tobacco use Z72.0 ; Hypo-osmolality and hyponatremia E87.1 and Hyperkalemia E87.5 [facility] [address] [facility] [address] [place] [address] 01/01/2025 Shubham Del Valle Chronic kidney disea [...] Hypo-osmolality and hyponatremia E87.1 and Hyperkalemia E87.5 [facility] [address] [facility] [address] [place] [address] 09/25/2024 Shubham Del Valle Assessments Encounter Date [...] Del Valle , 03/14/2025 01:45:00 PM, [address], [address],
--- OUTSIDE RECORDS SUMMARY | 2025-01-27 13:46 | XMS_ITS | Encounter Summary ---
Author Organization [facility] , [facility] Address [address] [place] [phone] Phone Care Team Providers Care General Engineer Name Role Phone Vanna Dave Primary Care Provider Unava ilable Reason for Visit * Reason Comments Med Refill Encounter Details Date Type Department Care Team (Late st Contact Info) Description 09/02/2021 Refill [place] [facility], [address] [address] João [place] [address] [place] [phone] Social History Tobacco Use Types Packs/Day [...] on filedocumented in this encounter Care Teams General Engineer Relationship Specialty Start Date End Date Vanna Dave FNP-C PCP - General Nurse Practitioner 02/07/22 documented as of this encounter
--- OUTSIDE RECORDS SUMMARY | 2025-01-27 13:46 | XMS_ITS | Clinical Summary ---
Author Organization [facility] rig[facility] Shai Address [address] [place] [address] Care Team Providers Care Soft Tile Setter Name Role Phone Clara Barber MD Primary [...] Department Care Team Description 12/31/2024 Orders Only [facility] Oncology and Hematology - [place] [address] [place] [phone] Tommie Williamson MD 12/24/2024 External Device Data STL ABSTRACTION Provider, Abstract 12/04/2024 External Device Data STL ABSTRACTION Provider, Abstract 12/03/2024 External Device Data STL ABSTRACTION Provider, Abstract 11/14/2024 4:30 PM CDT Telephone Check Up [facility] Oncology and Hematology - [place] [address] [place] [address] Tommie Williamson MD 11/12/2024 External Device Data STL ABSTRACTION Provider, Abstract 11/12/2024 External Device Data STL ABSTRACTION Provider, Abstract 11/11/2024 Orders Only [facility] Oncology and Hematology - [place] [address] [place] [address] Tommie Williamson MD 11/04/2024 2:30 PM CDT Office Visit [facility] Oncology and Hematology - [place] [address] [place] [address] Tommie Williamson MD Iron deficiency anemia, unspecified iron deficiency anemia type (Primary Dx); Malignant neoplasm of urinary bladder, unspecified site (CMS/HCC) 10/31/2024 Orders Only [facility] Oncology and Hematology - [place] [facility] [address] [place] [address] Tommie Williamson MD from Last 3 Months [...] SCREENING 08/15/2020 DIABETES HBA1C Q 6 MONTHS 08/18/2024 02/19/2024 INFLUENZA VACCINE (#1) 2024 , 04/20/2023, 04/27/2022, Additional history exists COVID-19 Vaccine (5 - 2024-2 6 season) 2025 04/27/2022, 05/08/2021, 08/19/2020, Additional history exists PNEUMOCOCCAL VACCINE 50+ YEARS Completed 05/06/2022 Procedures Procedure Name Priority Date/Time Associated Diagnosis Comments CBC WITH AUTODIFFERENTIAL Routine 2024 12:[address] ABDOMEN PELVIS W CONTRAST Routine 11/08/2024 8:53 AM CDT from Last 3 Months Results * CBC WITH AUTODIFFERENTIAL (12/30/2024 12:27 PM CDT) Blood us Tommie Williamson MD HEMATOLOGY ORDERABLES Final Res ult * CT ABDOMEN PELVIS W CONTRAST (11/08/2024 8:53 AM CDT) Anatomical Region Laterality Modality Abdomen Computed Tomogra phy Tommie Williamson MD CT ORDERABLES Final Result from Last [address] [place] [place] [id number] [place] Care Teams Soft Tile Setter Relationship Specialty Start Date End Date Clara Barber MD PCP - General Internal Medicine 11/01/23
--- OUTSIDE RECORDS SUMMARY | 2025-01-27 13:46 | XMS_ITS ---
Author Organization [facility] Address [address] [place] [address] Care Team Providers Care Mold Cooler Name Role Phone Tenzin Vanna WIGGINS-CARE PROGRAM DIRECTOR Primary Care Provider [phone] Active Problems Problem Noted Date Diagnosed Date [...]
--- OUTSIDE RECORDS SUMMARY | 2025-01-27 13:46 | XMS_ITS | Clinical Summary ---
Author Organization [facility] Address [address] [place] [address] Care Team Providers Care Metal Bonding Assembler Name Role Phone TenzinVanna CHUTE GREASER-C Primary Care Provider Unabrandy ilable Medications atorvastatin [...] Comments Blood Pressure 126/62 06/07/2022 2:57 PM CAT BREEDER Pulse 68 06/07/2022 2:57 PM CAT BREEDER Temperature 36.3 C (97.4 F) 06/07/2022 2:57 PM CAT BREEDER Respiratory Rate 18 06/07/2022 2:57 PM CAT BREEDER Oxygen Saturation 99% 06/07/2022 2:57 PM CAT BREEDER Inhaled Oxygen Concentration - - Weight 70.8 kg (156 lb) 02/25/2020 12:00 PM CDT Height 167.6 cm (5' 6) 06/07/2022 2:57 PM CAT BREEDER Body Mass Index 25.18 02/25/2020 12:00 PM [...] history exists Insurance Medicaid [place] Care Teams Metal Bonding Assembler Relationship Specialty Start Date End Date Vanna Dave FNP-C PCP - General Nurse Practitioner 02/07/22
== END 2025-01-27 13:40 | disposition home or self-care (01) ==
PROVIDERS: PCP Internal Medicine; Visit Provider Internal Medicine Pulmonary Disease
DX: R91.1 Solitary pulmonary nodule (principal); R91.8 Other nonspecific abnormal finding of lung field; J43.9 Emphysema, unspecified
CPT/HCPCS: 71260; Q9967

== ENCOUNTER 2025-03-28 11:34 | Outpatient (CLI) | payer MEDICARE, MEDICAID, SELFPAY ==
--- OUTSIDE RECORDS SUMMARY | 2023-12-27 09:00 | XMS_ITS ---
Author Organization [facility] Address [address] [place] [address] Care Team Providers Care Ornamental Machine Operator Name Role Phone Shubham Del Valle Unavailable [phone] Encounters Encounter Location Date Provider Diagnosis [place] [facility] 2043 [facility] 15 [place] [address] 12/27/2023 Shubham Del Valle Chronic kidney disease, stage 3a N18.31 ; Essential hypertension I10 ; Other proteinuria R80.8 ; Edema, unspecified R60.9 and Anxiety disorder, unspecified F41.9 Assessments Encounter Date Diagnosis (ICD Code) Assessment Notes Treatment Notes Treatment Clinical Notes Section Notes 12/27/2023 Chronic kidney disease, stage 3a (ICD-10 - N18.31) 12/27/2023 Essential hypertension (ICD-10 - I10) 12/27/2023 Other proteinuria (ICD-10 - R80.8) 12/27/2023 Edema, unspecified (ICD-10 - R60.9) 12/27/2023 Anxiety disorder, unspecified (ICD-10 - F41.9) Plan Of Treatment Next Appt Details Provider Name:Shubham Del Valle , 04/02/2025 03:45:00 PM, 2043 [facility], [facility] 15, [place], [address], Progress Notes * MARCY BARKEROB:[birth year] (69 yo F)Acc No.[id number]:12/27/2023 Progress Notes Patient: BINA DESHPANDE Provider: Angela PATRICIA MD, F.A.C.P, F.A.S.N. :1955 A ge:68 Y S ex:Female Date:12/27/2023 Address:[address] [place] [address] Subjective: * Chief Complaints: * * Medical History: Objective: * Vitals: Assessment: * Assessment: 1. C hronic kidney disease, stage 3a - N18.31 (Primary) 2 . E ssential hypertension - I10 3 . O ther proteinuria - R80.8 4 . E toby, unspecified - R60.9 5 . A nxiety disorder, unspecified - F41.9 Plan: * Treatment: * Billing Information: * Visit Code: 24722 Office Visit, Est Pt., Level 4. * Procedure Codes: * Electronic signature of Mary Del Valle MD on 03/28/2025 at 12:13 PM HOME THERAPY TEACHER Sign off status: Pending * Provider: Angela PATRICIA MD, F.A.C.P, F.A.S.N. Date: 0 12/27/2023 Generated for Printing/Faxing/eTransmitting on: 05/28/2024 12:13 PM HOME THERAPY TEACHER
--- OUTSIDE RECORDS SUMMARY | 2024-02-07 09:00 | XMS_ITS ---
Author Organization [facility] Address [address] [address] [place] [address] Care Team Providers Care Investment Recovery Technician Name Role Phone Shubham Del Valle Unavailable [phone] Medications Medication SIG (Take, Route, Frequency, Duration) Notes Start Date End Date Status Ergocalciferol 1.25 MG (37286 UT) 1 capsule Orally Once a week; Duration: 90 day(s) 09/20/2023 06/15/2024 Active Calcitriol 0.25 MCG 1 capsule Orally Onc e a day; Duration: 90 day(s) 09/20/2023 06/15/2024 Active Jardiance 10 MG 1 tablet Orally Once a day; Duration: 90 09/20/2023 06/15/2024 Active Encounters Encounter Location Date Provider Diagnosis [place] [facility] 2043 [facility] 15 [place] [address] 02/07/2024 Shubham Del Valle Chronic kidney disea se, stage 2 (mild) N18.2 ; Hyperkalemia E87.5 ; Essential (primary) hypertension I10 ; Edema, unspecified R60.9 ; Renal osteodystrophy N25.0 ; Secondary hyperparathyroidism, not elsewhere classified E21.1 and Vitamin D deficiency, unspecified E55.9 Assessments Encounter Date Diagnosis (ICD Code) Assessment Notes Treatment Notes Treatment Clinical Notes Section Notes 02/07/2024 Chronic kidney disease, stage 2 (mild) (ICD-10 - N18.2) 02/07/2024 Hyperkalemia (ICD-10 - E87.5) 02/07/2024 Essential (primary) hypertension (ICD-10 - I10) 02/07/2024 Edema, unspecified (ICD-10 - R60.9) 02/07/2024 Renal osteodystrophy (ICD-10 - N25.0) 02/07/2024 Secondary hyperparathyroidism , not elsewhere classified (ICD-10 - E21.1) 02/07/2024 Vitamin D deficiency, unspecified (ICD-10 - E55.9) Plan Of Treatment Next Appt Details Provider Name:Shubham Del Valle , 04/02/2025 03:45:00 PM, 2043 [facility], [address], [place], [place], [facility], Progress Notes * MARCY BARKEROB:[birth year] (69 yo F)Acc No.[id number]:02/07/2024 Progress Notes Patient: BINA DESHPANDE Provider: Angela PATRICIA MD, F.Avery.C.P, F.A.S.N. :1955 A ge:68 Y S ex:Female Date:02/07/2024 Address:[address] [place] [address] Subjective: * Chief Complaints: * * Medical History: * Medications: T aking Ergocalciferol 1.25 MG (32031 UT) Capsule 1 capsule Orally Once a week , stop date 06/15/2024, Taking Calcitriol 0.25 MCG Capsule 1 capsule Orally Once a day , stop date 06/15/2024, Taking Jardiance 10 MG Tablet 1 tablet Orally Once a day , stop date 06/15/2024 Objective: * Vitals: Assessment: * Assessment: 1. C hronic kidney disease, stage 2 (mild) - N18.2 2 . H yperkalemia - E87.5 3 . E ssential (primary) hypertension - I10 4 . E toby, unspecified - R60.9 5 . R enal osteodystrophy - N25.0 6 . S econdary hyperparathyroidism, not elsewhere classified - E21.1 7 . V itamin D deficiency, unspecified - E55.9 Plan: * Treatment: * Billing Information: * Visit Code: 58043 Office Visit, Est Pt., Level 4. * Procedure Codes: * Electronic signature of Mary Del Valle MD on 03/28/2025 at 12:13 PM COLOR STRAINING BAG WASHER Sign off status: Pending * Provider: Angela PATRICIA MD, F.Avery.C.P, F.A.S.N. Date: 0 02/07/2024 Generated for Printing/Faxing/eTransmitting on: 1 05/28/2024 12:13 PM COLOR STRAINING BAG WASHER
--- OUTSIDE RECORDS SUMMARY | 2024-04-10 08:15 | XMS_ITS ---
Author Organization [facility] Address 1400 [facility] 61 [facility] [address] [place] [address] Care Team Providers Care Nitro Man Name Role Phone Sushil Del Vallejit Unavailable [phone] Encounters Encounter Location Date Provider Diagnosis [place] Office 2043 [facility] [address] [place] [address] 04/10/2024 Shubham Del Valle Plan Of Treatment Next Appt Details Provider Name:Shubham Eligio , 04/02/2025 03:45:00 PM, 2043 [facility], [facility] 15, [place], [address], Progress Notes * MARCY BARKEROB:[birth year] (69 yo F)Acc No.[id number]:04/10/2024 Progress Notes Patient: BINA DESHPANDE Provider: Angela PATRICIA MD, Vince.Avery.C.P, F.A.S.N. :1955 A ge:68 Y S ex:Female Date:04/10/2024 Address:[address] [place] [address] Subjective: * Chief Complaints: * * Medical History: Objective: * Vitals: Assessment: Plan: * Treatment: * Billing Information: * Visit Code: * Procedure Codes: * Electronic signature of Mary Del Valle MD on 03/28/2025 at 12:13 PM VEHICLE SAFETY INSPECTOR Sign off status: Pending * Provider: Angela PATRICIA MD, Vince.Avery.C.P, F.A.S.N. Date: 06/10/2023 Generated for Printing/Faxing/eTransmitting on: 05/28/2024 12:13 PM VEHICLE SAFETY INSPECTOR
--- OUTSIDE RECORDS SUMMARY | 2024-05-08 09:00 | XMS_ITS ---
Author Organization [facility] Address [address] [facility] [address] [place] [address] Care Team Providers Care Automobile Technician Name Role Phone Sushil Del Vallejit Unavailable [phone] Problems Problem Type SNOMED Code ICD Code Onset Dates Problem Status W/U Status Risk Notes Problem Type II diabetes mellitus without complication (508900788) Type 2 diabetes mellitus without complications (E11.9) Active confirmed Encounters Encounter Location Date Provider Diagnosis [facility] [place] [facility] [address] [place] [address] 05/08/2024 Shubham Del Valle Stage 3 chronic kidn ey disease N18.30 ; Type 2 diabetes mellitus without complications E11.9 ; Hypo-osmolality and hyponatremia E87.1 and Vitamin D deficiency, unspecified E55.9 Assessments Encounter Date Diagnosis (ICD Code) Assessment Notes Treatment Notes Treatment Clinical Notes Section Notes 05/08/2024 Stage 3 chronic kidney disease (ICD-10 - N18.30) 05/08/2024 Type 2 diabetes mellitus without complications (ICD-10 - E11.9) 05/08/2024 Hypo-osmolality and hyponatremia (ICD-10 - E87.1) 05/08/2024 Vitamin D deficiency, unspecified (ICD-10 - E55.9) Plan Of Treatment Next Appt Details Provider Name:Shubham Del Valle , 04/02/2025 03:45:00 PM, 2043 [facility], [facility] 15, [place], [address], Progress Notes * MARCY BARKEROB:[birth year] (69 yo F)Acc No.[id number]:05/08/2024 Progress Notes Patient: BINA DESHPANDE Provider: Angela PATRICIA MD, F.A.C.P, F.A.S.N. :1955 A ge:68 Y S ex:Female Date:05/08/2024 Address:[address] [place] [address] Subjective: * Chief Complaints: * * Medical History: Objective: * Vitals: Assessment: * Assessment: 1. S tage 3 chronic kidney disease - N18.30 (Primary) 2 . T ype 2 diabetes mellitus without complications - E11.9 3 . H ypo-osmolality and hyponatremia - E87.1 4 . V itamin D deficiency, unspecified - E55.9 Plan: * Treatment: * Billing Information: * Visit Code: 42528 Office Visit, Est Pt., Level 4. * Procedure Codes: * Electronic signature of Mary Del Valle MD on 03/28/2025 at 12:14 PM MOTION PICTURES CARTOONIST Sign off status: Pending * Provider: Angela PATRICIA MD, F.A.C.P, F.A.S.N. Date: 07/09/2023 Generated for Printing/Faxing/eTransmitting on: 05/28/2024 12:14 PM MOTION PICTURES CARTOONIST
--- OUTSIDE RECORDS SUMMARY | 2024-07-17 08:30 | XMS_ITS ---
Author Organization [facility] Address 1400 [facility] 61 [facility] [address] [place] [address] Care Team Providers Care Transfer Professor Name Role Phone Elgiio Shubham Unavailable [phone] Encounters Encounter Location Date Provider Diagnosis [place] [facility] 2043 [facility] [address] [place] [address] 07/17/2024 Shubham Del Valle Plan Of Treatment Next Appt Details Provider Name:Shubham Eligio , 04/02/2025 03:45:00 PM, 2043 [facility], [address], [place], [address], Progress Notes * MARCY BARKEROB:[birth year] (69 yo F)Acc No.[id number]:07/17/2024 Progress Notes Patient: BINA DESHPANDE Provider: Angela PATRICIA MD, Vince.Avery.C.P, F.A.S.N. :1955 A ge:68 Y S ex:Female Date:07/17/2024 Address:[address] [place] [address] Subjective: * Chief Complaints: * * Medical History: Objective: * Vitals: Assessment: Plan: * Treatment: * Billing Information: * Visit Code: * Procedure Codes: * Electronic signature of Mary Del Valle MD on 03/28/2025 at 12:14 PM CHANNEL MARKETING COORDINATOR Sign off status: Pending * Provider: Angela PATRICIA MD, Vince.Avery.C.P, F.A.S.N. Date: 07/17/2024 Generated for Printing/Faxing/eTransmitting on: 05/28/2024 12:14 PM CHANNEL MARKETING COORDINATOR
--- OUTSIDE RECORDS SUMMARY | 2024-07-19 08:15 | XMS_ITS ---
Author Organization [facility] Address 1400 [facility] 61 [facility] [address] [place] [address] Care Team Providers Care Security Administrator Name Role Phone Eligio Shubham Unavailable [phone] Encounters Encounter Location Date Provider Diagnosis [place] [facility] 2043 [facility] [address] [place] [address] 07/19/2024 Shubham Del Valle Plan Of Treatment Next Appt Details Provider Name:Shubham Eligio , 04/02/2025 03:45:00 PM, 2043 [facility], [address], [place], [address], Progress Notes * MARCY BARKEROB:[birth year] (69 yo F)Acc No.[id number]:07/19/2024 Progress Notes Patient: BINA DESHPANDE Provider: Angela PATRICIA MD, Vince.Avery.C.P, F.A.S.N. :1955 A ge:68 Y S ex:Female Date:07/19/2024 Address:[address] [place] [address] Subjective: * Chief Complaints: * * Medical History: Objective: * Vitals: Assessment: Plan: * Treatment: * Billing Information: * Visit Code: * Procedure Codes: * Electronic signature of Mary Del Valle MD on 03/28/2025 at 12:13 PM FIREWALL SECURITY ENGINEER Sign off status: Pending * Provider: Angela PATRICIA MD, Vince.Avery.C.P, F.A.S.N. Date: 07/19/2024 Generated for Printing/Faxing/eTransmitting on: 05/28/2024 12:13 PM FIREWALL SECURITY ENGINEER
--- OUTSIDE RECORDS SUMMARY | 2024-09-25 09:45 | XMS_ITS ---
Author Organization [facility] Address [address] [place] [address] [place] [address] Care Team Providers Care Shirring Machine Operator Name Role Phone Eligio Shubham Unavailable [phone] Medications Medication SIG (Take, Route, Fr equency, Duration) Notes Start Date End Date Status Calcitriol 0.25 MCG TAKE 1 CAPSULE BY MO UTH EVERY DAY FOR 90 DAYS; Duration: 90 Ac tive Jardiance 10 MG TAKE 1 TABLET BY REESE TH EVERY DAY; Duration: 90 Active Problems Problem Type SNOMED Code ICD Code Onset Dates Problem Status W/U Status Risk Notes Problem Tobacco use (008669304) Tobacco use (Z72.0) Active confirmed Problem Hypo-osmolality and or hyponatremia (215293642) Hypo-osmolality and hyponatremia (E87.1) Active confirmed Problem Hyperkalemia (59147285) Hyperkalemia (E87.5) Active confirmed Encounters Encounter Location Date Provider Diagnosis [place] [facility] [address] [address] 09/25/2024 Shubham Del Valle Chronic kidney disea se, stage 3 unspecified N18.30 ; Essential (primary) hypertension I10 ; Edema, unspecified R60.9 ; Renal osteodystrophy N25.0 ; Secondary hyperparathyroidism, not elsewhere classified E21.1 ; Vitamin D deficiency, unspecified E55.9 ; Type 2 diabetes mellitus without complications E11.9 ; Tobacco use Z72.0 ; Hypo-osmolality and hyponatremia E87.1 and Hyperkalemia E87.5 Assessments Encounter Date Diagnosis (ICD Code) Assessment Notes Treatment Notes Treatment Clinical Notes Section Notes 09/25/2024 Chronic kidney disease, stage 3 unspecified (ICD-10 - N18.30) 09/25/2024 Essential (primary) hypertension (ICD-10 - I10) 09/25/2024 Edema, unspecified (ICD-10 - R60.9) 09/25/2024 Renal osteodystrophy (ICD-10 - N25.0) 09/25/2024 Secondary hyperparathyroidism , not elsewhere classified (ICD-10 - E21.1) 09/25/2024 Vitamin D deficiency, unspecified (ICD-10 - E55.9) 09/25/2024 Type 2 diabetes mellitus without complications (ICD-10 - E11.9) 09/25/2024 Tobacco use (ICD-10 - Z72.0) 09/25/2024 Hypo-osmolality and hyponatremia (ICD-10 - E87.1) 09/25/2024 Hyperkalemia (ICD-10 - E87.5) Plan Of Treatment Next Appt Details Provider Name:Shubham Eligio , 04/02/2025 03:45:00 PM, [address] [facility] [address], [place], [facility], Progress Notes * MARCY BARKEROB:[birth year] (69 yo F)Acc No.[id number]:09/25/2024 Progress Notes Patient: IBNA DESHPANDE Provider: Angela PATRICIA MD, F.A.C.P, F.A.S.N. :1955 A ge:69 Y S ex:Female Date:09/25/2024 Address:[address] [place] [address] Subjective: * Chief Complaints: * * Medical History: * Medications: T aking Jardiance 10 MG Tablet TAKE 1 TABLET BY MOUTH EVERY DAY , Taking Calcitriol 0.25 MCG Capsule TAKE 1 CAPSULE BY MOUTH EVERY DAY FOR 90 DAYS Objective: * Vitals: Assessment: * Assessment: 1. C hronic kidney disease, stage 3 unspecified - N18.30 (Primary) 2 . E ssential (primary) hypertension - I10 3 . E toby, unspecified - R60.9 ?4. R enal osteodystrophy - N25.0 5 . S econdary hyperparathyroidism, not elsewhere classified - E21.1 6 . V itamin D deficiency, unspecified - E55.9? 7. T ype 2 diabetes mellitus without complications - E11.9 8 .?Tobacco use - Z72.0 9 . H ypo-osmolality and hyponatremia - E87.1 10. H yperkalemia - E87.5 Plan: * Treatment: * Billing Information: * Visit Code: 30514 Office Visit, Est Pt., Level 4. * Procedure Codes: * Electronic signature of Mary Del Valle MD on 03/28/2025 at 12:13 PM SOUND PRINTER Sign off status: Pending * Provider: Angela PATRICIA MD, F.A.C.P, F.A.S.N. Date: 0 09/25/2024 Generated for Printing/Faxing/eTransmitting on: 1 05/28/2024 12:13 PM SOUND PRINTER
--- OUTSIDE RECORDS SUMMARY | 2025-01-01 08:45 | XMS_ITS ---
Author Organization [facility] Address [address] [place] [address] Care Team Providers Care Rib Cloth Knitter Name Role Phone Shubham Del Valle Unavailable [phone] Encounters Encounter Location Date Provider Diagnosis [place] [facility] [address] [facility] [address] [place] [address] 01/01/2025 Shubham Del Valle Chronic kidney disea se, stage 3 unspecified N18.30 ; Essential (primary) hypertension I10 ; Edema, unspecified R60.9 ; Essential hypertension I10 ; Renal osteodystrophy N25.0 ; Anxiety disorder, unspecified F41.9 ; Other proteinuria R80.8 ; Secondary hyperparathyroidism, not elsewhere classified E21.1 ; Vitamin D deficiency, unspecified E55.9 ; Type 2 diabetes mellitus without complications E11.9 ; Tobacco use Z72.0 ; Hypo-osmolality and hyponatremia E87.1 and Hyperkalemia E87.5 Assessments Encounter Date Diagnosis (ICD Code) Assessment Notes Treatment Notes Treatment Clinical Notes Section Notes 01/01/2025 Chronic kidney disease, stage 3 unspecified (ICD-10 - N18.30) 01/01/2025 Essential (primary) hypertension (ICD-10 - I10) 01/01/2025 Edema, unspecified (ICD-10 - R60.9) 01/01/2025 Essential hypertension (ICD-10 - I10) 01/01/2025 Renal osteodystrophy (ICD-10 - N25.0) 01/01/2025 Anxiety disorder, unspecified (ICD-10 - F41.9) 01/01/2025 Other proteinuria (ICD-10 - R80.8) 01/01/2025 Secondary hyperparathyroidism , not elsewhere classified (ICD-10 - E21.1) 01/01/2025 Vitamin D deficiency, unspecified (ICD-10 - E55.9) 01/01/2025 Type 2 diabetes mellitus without complications (ICD-10 - E11.9) 01/01/2025 Tobacco use (ICD-10 - Z72.0) 01/01/2025 Hypo-osmolality and hyponatremia (ICD-10 - E87.1) 01/01/2025 Hyperkalemia (ICD-10 - E87.5) Plan Of Treatment Next Appt Details Provider Name:Shubham Del Valle , 04/02/2025 03:45:00 PM, 2043 [facility] 15, [place], [place], [facility], Progress Notes * MARCY BARKEROB:[birth year] (69 yo F)Acc No.[id number]:01/01/2025 Progress Notes Patient: BINA DESHPANDE Provider: Angela PATRICIA MD, F.A.C.P, F.A.S.N. :1955 A ge:69 Y S ex:Female Date:01/01/2025 Address:[address] [place] [address] Subjective: * Chief Complaints: Objective: Assessment: * Assessment: 1. C hronic kidney disease, stage 3 unspecified - N18.30 (Primary) 2 . E ssential (primary) hypertension - I10 3 . E toby, unspecified - R60.9 ?4. E ssential hypertension - I10 5 . R enal osteodystrophy - N25.0 6 . A nxiety disorder, unspecified - F41.9 7 . O ther proteinuria - R80.8 8 . S econdary hyperparathyroidism, not elsewhere classified - E21.1? 9. V itamin D deficiency, unspecified - E55.9 1 0. T ype 2 diabetes mellitus without complications - E11.9 1 1. T obacco use - Z72.0 ? 1 2. H ypo-osmolality and hyponatremia - E87.1 1 3. H yperkalemia - E87.5 Plan: * Billing Information: * Visit Code: 99657 Office Visit, Est Pt., Level 4. * Procedure Codes: * Electronic signature of Mary Del Valle MD on 03/28/2025 at 12:12 PM RESEARCH HYDROLOGIST Sign off status: Pending * Provider: Angela PATRICIA MD, F.A.C.P, F.A.S.N. Date: 0 01/01/2025 Generated for Printing/Faxing/eTransmitting on: 1 05/28/2024 12:12 PM RESEARCH HYDROLOGIST
--- OUTSIDE RECORDS SUMMARY | 2025-03-14 07:45 | XMS_ITS ---
Author Organization [facility] Address [address] [facility] [address] [facility] [address] [place] [address] Care Team Providers Care Cdl A Driver Name Role Phone Eligio Shubham Unavailable [phone] Encounters Encounter Location Date Provider Diagnosis [facility] [address] [facility] [address] [place] [address] 03/14/2025 Shubham Del Valle Plan Of Treatment Next Appt Details Provider Name:Shubham Eligio , 04/02/2025 03:45:00 PM, 20[address] [facility], [facility] [address], [place], [address], Progress Notes * MARCY BARKEROB:[birth year] (69 yo F)Acc No.[id number]:03/14/2025 Progress Notes Patient: BINA DESHPANDE Provider: Angela PATRICIA MD, Vince.Avery.Taylor.P, F.A.S.N. :1955 A ge:69 Y S ex:Female Date:03/14/2025 Address:[address] [place] [address] Subjective: * Chief Complaints: Objective: Assessment: Plan: * Billing Information: * Visit Code: * Procedure Codes: * Electronic signature of Mary Del Valle MD on 03/28/2025 at 12:13 PM VIDEO MANAGER Sign off status: Pending * Provider: Angela PATRICIA MD, Vince.Avery.Taylor.P, F.A.S.N. Date: Generated for Printing/Faxing/eTransmitting on: 05/28/2024 12:13 PM VIDEO MANAGER
--- OUTSIDE RECORDS SUMMARY | 2025-03-28 12:13 | XMS_ITS | Clinical Summary ---
Author Organization [facility] Address [address] [facility] [place] [address] Care Team Providers Care Thermostat Repairer Name Role Phone Clara Barber MD Primary [...] Encounters Date Type Department Care Team Description 03/12/2025 External Device Data STL ABSTRACTION Provider, Abstract 03/11/2025 External Device Data STL ABSTRACTION Provider, Abstract 02/04/2025 External Device Data STL ABSTRACTION Provider, Abstract 12/31/2024 Orders Only [facility] Oncology and Hematology - [place] [address] [facility] [address] [place] [address] Tommie Williamson MD from Last 3 Months [...] Date Smoking Tobacco: Every Day Cigarettes 1 51.4 Started: 11/14/1973 Smokeless Tobacco: Never Tobacco Cessation:Ready [...] 5 years 08/15/2000 Lung Cancer Screening 08/15/2005 RSV VACCINE (60+ or ) (1 - Risk 50-74 years 1-dose series) 08/15/2005 ZOSTER VACCINE (1 of 2) 08/15/2005 OSTEOPOROSIS SCREENING 08/15/2020 DIABETES HBA1C Q 6 MONTHS 08/18/2024 02/19/2024 INFLUENZA VACCINE (#1) 2024 , 04/20/2023, 04/27/2022, Additional history exists COVID-19 Vaccine (2024-2 6 season) 2025 04/27/2022, 05/08/2021, 08/19/2020, Additional history exists PNEUMOCOCCAL VACCINE 50+ YEARS Completed 05/06/2022 Procedures Procedure Name Priority Date/Time Associated Diagnosis Comments CBC WITH AUTODIFFERENTIAL Routine 2024 12:27 PM CDT from Last 3 Months Results * CBC WITH AUTODIFFERENTIAL (12/30/2024 12:27 PM CDT) Blood us Tommie Williamson MD HEMATOLOGY ORDERABLES Final Res ult from Last 3 Months Insurance [facility] [id number] MED[place]ID [place] Care Teams Thermostat Repairer Relationship Specialty Start Date End Date Clara Barber MD PCP - General Internal Medicine 11/01/23
--- OUTSIDE RECORDS SUMMARY | 2025-03-28 12:13 | XMS_ITS | Clinical Summary ---
Author Organization [facility] 1 Address [address] [place] [address] Care Team Providers Care Health Policy Manager Name Role Phone Brittni Barber MD Primary Care Provide r Allergies No known active allergies Medications sodium bicarbonate 650 mg tablet TAKE 2 TABLETS BY MOUTH TWICE A DAY DIRECTED Active omeprazole (PriLOSEC) 40 mg capsule Take by mouth daily 1 Active metFORMIN (GLUCOPHAGE) 500 mg tablet Take 1 tablet (500 mg total) by mouth 2 (two) times a day Active lisinopriL (PRINIVIL,ZESTRI L) 2.5 mg tablet Take 1 tablet (2.5 mg total) by mouth daily Active Jardiance 10 mg tablet Take 1 tablet (10 mg total) by mouth daily Active atorvastatin (LIPITOR) 40 mg tablet Take 1 tablet (40 mg total) by mouth nightly 1 Active aspirin 81 mg capsule Take 81 mg by mouth 3 Active albuterol HFA (PROVENTIL HFA,VENTOLIN HFA,PROAIR HFA) 90 mcg/actuation inhaler INHALE 1 PUFF BY MOUTH EVERY 4 HOURS Active budesonide-formo teroL (SYMBICORT) 160-4.5 mcg/actuation inhaler Inhale 2 puffs 2 (two) times a day Active rifAMPin (RIFADIN) 300 mg capsule Take 2 capsules (600 mg total) by mouth daily 60 capsule 3 5 07/11/19 26 Active Active Problems Problem Noted Date Diagnosed Date Carotid artery stenosis 03/13/2025 Stenosis of left vertebral artery 03/13/2025 Vision loss of right eye 03/13/2025 Chronic kidney disease 02/18/2025 Gastroesophageal reflux disease without esophagi tis 02/18/2025 Low back pain 02/18/2025 Low serum vitamin B12 02/18/2025 Nausea 02/18/2025 Smoker 02/18/2025 Type 2 diabetes mellitus without complications 0 02/18/2025 Asthma-chronic obstructive p ulmonary disease overlap syndrome 11/14/2024 Cobalamin deficiency 10/25/2023 Solitary pulmonary nodule 07/31/2023 Proteinuria 07/25/2023 Cerebrovascular accident 05/10/2023 Thyroid nodule 05/09/2023 Coronary arteriosclerosis 04/19/2023 Essential hypertension 04/19/2023 Malignant neoplasm of posterior wall of urinary bladder 04/19/2023 Abscess 02/04/2023 Abdominal pain, generalized 12/25/2022 Acute pyelonephritis 12/25/2022 Left flank pain 12/25/2022 UTI (urinary tract infection) 12/25/2022 Thrombocytosis 11/08/2022 Vitamin D deficiency 11/07/2022 Osteoporosis 10/11/2021 Hyperlipidemia 05/30/2018 Encounters Date Type Department Care Team Description 03/13/2025 12:15 PM CDT Office Visit [facility] [address] [place] [phone] Estevan Monterroso MD 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) from Last 3 Months Immunizations Immunization Administration Dates Next Due Influenza, Quadrivalent, Hig h Dose, Preservative Free, Intrr 04/20/2023,04/27/2022,03/22/2022,04/13 Influenza, Quadrivalent, Spl it, Preservative Free, Intramuscular 04/02/2019 Influenza, Trivalent, High D ose, Split, Preservative Free, Intramuscular 02/15/2024 Influenza, Unspecified 04/21/2022,03/10/2019 Pneumococcal Conjugate Pcv20 05/06/2022 RSV Vaccine, Pref, Recombina nt, Subunit, Adjuvanted, PF, IM (Arexvy) 10/03/2024 Tdap 10/03/2024 ZOSTER Recombinant 10/03/2024 Social History Tobacco Use Types Packs/Day Years Used Date Smoking Tobacco: Every Day Cigarettes Comments Unknown Sex and Gender Information Value Date Recorded Sex Assigned at Not on file Legal Sex Female 1:03 PM CDT Gender Identity Not on file Sexual Orientation Not on file Last Filed Vital Signs Vital Sign Reading Time Taken Comments Blood Pressure - - Pulse - - Temperature 36.1 C (97 F) 03/13/2025 12:25 PM CDT Respiratory Rate - - Oxygen Saturation - - Inhaled Oxygen Concentration - - Weight 61.2 kg (135 lb) 03/13/2025 12:25 PM CDT Height 165.1 cm (5' 5) 03/13/2025 12:25 PM CDT Body Mass Index 22.47 03/13/2025 12:25 PM CDT Plan of Treatment Health Maintenance Due Date Last Done Comments Albumin Creatinine Ratio, Urine 1955 Breast Cancer Screening-Mammogram 1955 Colon Cancer Screening-Colonoscopy 1955 Depression Screening 1955 Fall Risk Assessment 1955 Hepatitis C Screening 1955 Osteoporosis Screening-Bone Density Scan 1955 eGFR 1955 Dilated Eye Exam 1955 Foot Exam 1955 Lipid Panel 1955 Hepatitis B Screening 08/15/1973 Well Visit 65+ 08/15/2020 Hemoglobin A1C 07/13/2023 01/10/2023 Zoster Vaccine (2 of 2) 11/28/2024 10/03/2024 Covid-19 Vaccine (5 - 2024-2 6 season) 2025 04/27/2022, 05/08/2021, 08/19/2020, Additional history exists Influenza Vaccine (#1) 2025 , 04/20/2023, 04/27/2022, Additional history exists DTaP/Tdap/Td Vaccine (2 - Td or Tdap) 10/03/2034 10/03/2024 Pneumococcal vaccine 65+ Completed 05/06/2022 Insurance [facility] Address: [address] [address] [place] [address] [employer] Care Teams Health Policy Manager Relationship Specialty Start Date End Date Brittni Barber MD [address] [address] PCP - General Internal Medicine 11/08/24
--- OUTSIDE RECORDS SUMMARY | 2025-03-28 12:14 | XMS_ITS ---
Author Organization [facility] Address [address] [place] [address] Care Team Providers Care Sharepoint Developer Name Role Phone Tenzin Vanna WIGGINS-SALES PROJECT ENGINEER Primary Care Provider [phone] Active Problems Problem Noted Date Diagnosed Date [...]
--- OUTSIDE RECORDS SUMMARY | 2025-03-28 12:14 | XMS_ITS | Patient Health Record ---
Author Organization [facility] Address [address] [place] [address] Care Team Providers Care Electronic Device Repairer Name Role Phone Shubham Del Valle Unavailable [phone] Reason For Referral No Information Medications Medication SIG (Take, Route, Frequency, Duration) Notes Start Date End Date Status Ergocalciferol 1.25 MG (92421 UT) 1 capsule Orally Once a week; [...] W/U Status Risk Notes Problem Secondary hyperparathyroidism (12507716) Secondary hyperparathyroid ism, not elsewhere classified (E21.1) Active confirmed Problem Vitamin D deficiency (70905566) Vitamin D deficiency, unspecified (E55.9) Active confirmed Problem Hypo-osmolality and or hyponatremia (717666191) Hypo-osmolality and hyponatremia (E87.1) Active confirmed Problem Hyperkalemia (74864808) Hyperkalemia (E87.5) Active confirmed Problem Anxiety disorder (331439063) Anxiety disorder, unspecified (F41.9) Active confirmed Problem Essential hypertension (79327406) Essential (primary) hypertension (I10) Active confirmed Problem Renal osteodystrophy (28333038) Renal osteodystrophy (N25.0) Active confirmed Problem Edema (52735961) Edema, unspecified (R60.9) Active confirmed Problem Edema (49041506) Edema, unspecified (R60.9) Active confirmed Problem Proteinuria (93682124) Other proteinuria (R80.8) Active confirmed Problem Tobacco use (874004333) Tobacco use (Z72.0) Active confirmed Problem Type II diabetes mellitus without complication (308663581) Type 2 diabetes mellitus without complications (E11.9) Active confirmed Problem Essential hypertension (70515371) Essential hypertension (I10) Active confirmed Problem Chronic kidney disease stage 3 (disorder) (711979328) Chronic kidney disease, stage 3 unspecified (N18.30) Active confirmed Encounters Encounter Location Date Provider Diagnosis [facility] [address] [place] [address] 05/08/2024 Shubham Del Valle Stage 3 chronic kidn ey disease N18.30 ; Type 2 diabetes mellitus without complications E11.9 ; Hypo-osmolality and hyponatremia E87.1 and Vitamin D deficiency, unspecified E55.9 [facility] [address] [place] [address] 09/25/2024 Shubham Del Valle Chronic kidney disea se, stage 3 unspecified N18.30 ; Essential (primary) hypertension I10 ; Edema, unspecified R60.9 ; Renal osteodystrophy N25.0 ; Secondary hyperparathyroidism, not elsewhere classified E21.1 ; Vitamin D deficiency, unspecified E55.9 ; Type 2 diabetes mellitus without complications E11.9 ; Tobacco use Z72.0 ; Hypo-osmolality and hyponatremia E87.1 and Hyperkalemia E87.5 [facility] [address] [place] [address] 01/01/2025 Shubham Del Valle Chronic kidney disea [...] Hypo-osmolality and hyponatremia E87.1 and Hyperkalemia E87.5 [facility] [address] [place] [address] 09/25/2024 Shubham Del Valle Assessments Encounter Date Diagnosis (ICD Code) Assessment Notes Treatment Notes Treatment Clinical Notes Section Notes 05/08/2024 Type 2 diabetes mellitus without complications (ICD-10 - E11.9) 05/08/2024 Stage 3 chronic kidney disease (ICD-10 - N18.30) 09/25/2024 Chronic kidney disease, stage 3 unspecified (ICD-10 - N18.30) 01/01/2025 Chronic kidney disease, stage 3 unspecified (ICD-10 - N18.30) 01/01/2025 Essential (primary) hypertension (ICD-10 - I10) 09/25/2024 Essential (primary) hypertension (ICD-10 - I10) 05/08/2024 Hypo-osmolality and hyponatremia (ICD-10 - E87.1) 05/08/2024 Vitamin D deficiency, unspecified (ICD-10 - E55.9) 09/25/2024 Edema, unspecified (ICD-10 - R60.9) 01/01/2025 Edema, unspecified (ICD-10 - R60.9) 01/01/2025 Essential hypertension (ICD-10 - I10) 09/25/2024 Renal osteodystrophy (ICD-10 - N25.0) 09/25/2024 [...] Del Valle , 04/02/2025 03:45:00 PM, [address] [facility], [facility] [address], [place], [address],
--- OUTSIDE RECORDS SUMMARY | 2025-03-28 12:14 | XMS_ITS | Clinical Summary ---
Author Organization [facility] Address [address] [place] [address] Care Team Providers Care Striping Machine Operator Name Role Phone Vanna Dave ROSALIE-MARKER MAKER Primary Care Provider [phone] Source Comments [facility],non-owned Affiliates and Associated Physician Practices is amultiple site organization consisting of ambulatory clinics and hospital sitesin [place], [place], [place] and [place]. This disclosure is being madepursuant to the Care Everywhere program and may not contain all information available regarding this patient. Last updated 18.iFLYER Allergies No known active allergies Medications * [...] vitamin D, ergocalciferol , (Drisdol) 1.25 MG (89059 UT) capsule Take 1 (one) capsule by [...] days 56 tablet 3 Active HYDROcodone-ac etaminophen (Rhodelia) 5-325 MG tabletIndicati ons:Malignant neoplasm of posterior [...] Examples: Ensure Plant/Orgain 3 Active HYDROcodone-ac etaminophen (Rhodelia) 5-325 MG tabletIndicati ons:Abscess,Ma lignant neoplasm of [...] and heating? Not hard at all 02/05/2023 [facility] - [facility] Stress [...] place to sleep or slept in a [place] health care facility (including now)? No 02/05/2023 Comments No Sex and Gender Information Value Date Recorded Sex Assigned at Not on file Legal Sex Female 4:06 PM HOUSEKEEPER/LAUNDRY ASSISTANT Gender Identity Not on file Sexual Orientation [...] - Risk 60-74 years 1-dose series) 2015 DEPRESSION SCREENING 05/22/2024 MEDICARE AWV CALENDAR YEAR 2024 COVID-19 VACCINE ( season) 2025 04/27/2022, 05/08/2021, 08/19/2020, Additional history exists INFLUENZA VACCINE (#1) 2025 , 04/21/2022, 03/22/2022, [...] this topic Medical Devices Implanted Type Area Ethyl Blender Device Identifier Shelf Expiration Date Model / Serial / Lot Stent Uret 7fr 26cm Sft Tria Implanted:Qty: 1 on 01/24/2023 by Silvano Rodríguez MD at [facility] 09/23/2024 [id number] / / [id number] Stent Uret 7fr 26cm Sft Tria Implanted:Qty: 1 on 01/24/2023 by Silvano Rodríguez MD at [facility] Left: [facility] 04/03/2025 [id number] / [id number] Insurance [place] [address] [employer] MANAGED MEDICARE ADV Advance Directives * [...] 9:35 AM 11/06/2019 4:21 PM Care Teams Striping Machine Operator Relationship Specialty Start Date End Date Vanna Dave APRN-KIM [address] [phone] PCP - General 11/20/20
[2025-03-28 12:16] LABS: Add Urine Microscopic? YES; Appearance Urine Cloudy (Clear); Glucose Urine UA Trace mg/dL (Negative); Leukocyte Esterase Ur 3+ LEU/UL (Negative); Nitrate Urine Positive (Negative); Non Pathogenic Casts 0-2; Specific Grav Ur 1.011 (1.001-1.035)
[2025-03-28 12:28] LABS: Alanine Aminotransferase 17 U/L (6-35); Albumin Level 4.3 g/dL (3.5-5.1); Alkaline Phosphatase 68 U/L (38-126); Anion Gap 8 mmol/L (4-12); Aspartate Amino Transferase 39 U/L (14-36); Bilirubin,Total 0.4 mg/dL (0.2-1.3); Blood Urea Nitrogen 23 mg/dL (7-17); Calcium 9.4 mg/dL (8.4-10.2); Carbon Dioxide 24 mmol/L (22-30); Chloride 108 mmol/L (98-107); Estimated Glomerular Filt Rate 43; Glucose 125 mg/dL (65-110); Potassium 5.5 mmol/L (3.4-5.0); Sodium 140 mmol/L (137-145); Total Protein 7.1 g/dL (6.3-8.2); Uric Acid 3.7 mg/dL (2.5-7.5)
[2025-03-28 12:40] LABS: Total Protein Urine Random 19 mg/dL; Ur Ttl Prot Creatinine Ratio 0.28 mg/mg (0-0.20)
[2025-03-28 12:43] LABS: MALB Creatinine Ratio 44.6 mg/g (0-30)
[2025-03-28 12:49] LABS: Parathyroid Intact 28.8 pg/mL (14.5-75.2)
== END 2025-03-28 11:35 | disposition home or self-care (01) ==
LOC: ANHLAB 11:38
PROVIDERS: PCP Internal Medicine; Visit Provider Specialist
DX: N18.30 Chronic kidney disease, stage 3 unspecified (principal); E21.3 Hyperparathyroidism, unspecified; E55.9 Vitamin D deficiency, unspecified; R82.90 Unspecified abnormal findings in urine; N39.0 Urinary tract infection, site not specified; R35.0 Frequency of micturition
CPT/HCPCS: 36415; 80053; 81001; 82043; 82306; 82570; 83970; 84156; 84550; 87077; 87086; 87186